=== PATIENT | male | born 1970 | race Caucasian/White ===

== ENCOUNTER 2020-12-08 08:46 | Inpatient (IN) | payer MEDICARE, MEDICAID, SELFPAY ==
--- NOTE | ~2020-12-08 | XR_ITS ---
EXAMINATION: CHEST 1 VIEW CLINICAL INFORMATION: Enteric tube placement. COMPARISON: December 11, 2020. TECHNIQUE: An AP view of the chest is provided. FINDINGS: The cardiac silhouette is not enlarged. An enteric tube is in place. The tip overlies the left upper quadrant, likely within the stomach. The mediastinal and hilar contours are unremarkable. There are neither pleural effusions nor pneumothoraces. There are no consolidations. There is stable atelectasis or scarring at the left lung base. The osseous structures are stable. XR/XR chest 1V IMPRESSION: Enteric tube in place. Stable left lower lobe atelectasis or scarring.
--- NOTE | ~2020-12-08 | CT_ITS ---
EXAMINATION: CT ABDOMEN WITH CONTRAST CLINICAL INFORMATION: Pancreatitis COMPARISON: CT abdomen pelvis December 12, 2020 TECHNIQUE: Contiguous axial thin section helical images of the abdomen were performed following the administration of 85 mL of Omnipaque 350 intravenous contrast. The data set was reformatted in the coronal and sagittal planes and reviewed on an independent workstation. This CT examination was performed using dose optimization techniques as appropriate, variously including the following: *Automated exposure control *Adjustment of mA and/or kV according to patient size (this includes techniques or standardized protocols for targeted exams where dose is matched to indication/reason for exam; i.e. extremities or head) *Use of iterative reconstruction technique DLP: 313 mGy-cm FINDINGS: Visualized lung bases demonstrate subsegmental atelectasis, improved. The liver demonstrates normal size, contour and attenuation. Layering sludge is again noted within the gallbladder. The pancreas demonstrate symmetric enhancement. A small calcification is again noted within the pancreatic head. Diffuse peripancreatic stranding is again noted although it does appear slightly improved from prior imaging. There is no well-defined pancreatic pseudocyst identified. The spleen and adrenal glands are unremarkable. Symmetrically enhancing kidneys without hydronephrosis. A few tiny nonobstructing renal calculi are again noted bilaterally without hydronephrosis. Visualized loops of small and large bowel are normal in caliber. There is a mild stool burden throughout visualized loops:. Mild colonic diverticulosis appreciated without CT evidence to suggest active diverticulitis. Degenerative changes of the spine. CT/CT abdomen w con IMPRESSION: Persistent but mildly improved pancreatitis. There is no gross evidence of pancreatic necrosis. No pancreatic pseudocysts identified.
--- NOTE | ~2020-12-08 | CT_ITS ---
EXAMINATION: CT ABDOMEN AND PELVIS WITH CONTRAST CLINICAL INFORMATION: Epigastric pain. History of pancreatitis. COMPARISON: Several prior examinations. Most recent of 08/29/18. TECHNIQUE: Multidetector volumetric images were obtained from the superior aspect of the liver through the pubic symphysis following administration 85 mL of Omnipaque 350 intravenous contrast. Sagittal and coronal reformatted images were obtained on the technologist's workstation. Oral contrast: No This CT examination was performed using dose optimization techniques as appropriate, variously including the following: *Automated exposure control *Adjustment of mA and/or kV according to patient size (this includes techniques or standardized protocols for targeted exams where dose is matched to indication/reason for exam; i.e. extremities or head) *Use of iterative reconstruction technique DLP: 734 mGy-cm FINDINGS: LUNG BASES: There is mild bibasilar patchy opacity consistent with dependent atelectasis. LIVER, GALLBLADDER, AND BILIARY TREE: The liver is normal in size and contour. Parenchyma is mildly hypoattenuating consistent with steatosis. No focal hepatic lesion or biliary ductal dilatation is demonstrated. The gallbladder is unremarkable with no evidence of radiopaque gallstones, gallbladder wall thickening, or obvious pericholecystic inflammatory changes. PANCREAS: Ill-defined fluid collection is present along the anterior aspect of the pancreas extending into the small bowel mesentery. The pancreas shows normal enhancement with no necrosis. A few small scattered calcifications are present within the head of the pancreas. There is no dilatation of the pancreatic duct. There is a mildly enlarged lymph node adjacent to the head of the pancreas measuring 1.1 cm consistent with reactive lymph node. SPLEEN: Unremarkable. ADRENAL GLANDS: Unremarkable. KIDNEYS AND URETERS: Small cyst in the upper pole of the right kidney measures 0.5 cm. There are 2 small nonobstructing calculi in the lower pole of the left kidney measuring 0.3 cm. There is no hydronephrosis. BLADDER: Unremarkable. GASTROINTESTINAL TRACT: The stomach and duodenum are unremarkable. No abnormal small bowel loops are demonstrated. The colon is unremarkable. The appendix is normal. ABDOMINAL WALL: No significant hernia is appreciated. LYMPH NODES: Normal. VASCULAR: Unremarkable. PELVIC VISCERA: Unremarkable. OSSEOUS STRUCTURES: Mild degenerative changes at L4-5. Incidental disc space calcification in the lower thoracic spine. No suspicious lesion. CT/CT abdomen pelvis w con IMPRESSION: 1. Findings consistent with pancreatitis with acute peripancreatic fluid collection. No walled off collection. No necrosis. Scattered calcifications in the head of the pancreas. Reactive lymph node. 2. Mild hepatic steatosis.
--- NOTE | ~2020-12-08 | CT_ITS ---
EXAMINATION: CT ABDOMEN AND PELVIS WITH CONTRAST CLINICAL INFORMATION: Pancreatitis, ongoing pain. Follow-up. COMPARISON: CT abdomen and pelvis with contrast 12/08/2020 TECHNIQUE: Multidetector volumetric images were obtained from the superior aspect of the liver through the pubic symphysis following administration 85 mL of Omnipaque 350 intravenous contrast. Sagittal and coronal reformatted images were obtained on the technologist's workstation. Oral contrast: No This CT examination was performed using dose optimization techniques as appropriate, variously including the following: *Automated exposure control *Adjustment of mA and/or kV according to patient size (this includes techniques or standardized protocols for targeted exams where dose is matched to indication/reason for exam; i.e. extremities or head) *Use of iterative reconstruction technique DLP: 714 mGy-cm FINDINGS: LUNG BASES: There is increased subsegmental atelectasis at the bilateral posterior bases. No effusion. LIVER, GALLBLADDER, AND BILIARY TREE: Mild steatosis. Liver surface is smooth. No intrahepatic ductal dilatation or parenchymal lesion. There is layering sludge in the gallbladder is 77 HU attenuation. No gallbladder wall thickening or extrahepatic ductal dilatation. No gallbladder dilatation. PANCREAS: Inflammatory changes adjacent to the anterior pancreatic head and neck and proximal body extending into the central small bowel mesentery are increased. There is no interval peripancreatic, intrapancreatic, or mesentery fluid collection. No gas bubbles. The pancreas is normal in size and attenuation. There is no necrosis. No visible pancreatic ductal distention. Small coarse calcification pancreatic head again seen. SPLEEN: Unremarkable. ADRENAL GLANDS: Unremarkable. KIDNEYS AND URETERS: No hydronephrosis, hydroureter, or perinephric stranding. Kidneys enhance symmetrically. There are punctate nonobstructing calculi again noted left mid and lower pole under 3 mm and tiny right upper pole cyst under 1 cm. BLADDER: Unremarkable. GASTROINTESTINAL TRACT: No bowel obstruction. No bowel wall thickening or pneumatosis or free air. Appendix unremarkable. No ascites. ABDOMINAL WALL: Borderline fat-containing umbilical hernia under 2 cm. LYMPH NODES: No interval lymphadenopathy. VASCULAR: Unremarkable. No thrombosis splenic vein, superior mesenteric vein, or portal vein. PELVIC VISCERA: Unremarkable. OSSEOUS STRUCTURES: Unremarkable. CT/CT abdomen pelvis w con IMPRESSION: 1. Increased peripancreatic inflammatory changes central mesentery. Normal pancreatic enhancement. No necrosis or pancreatic ductal distention. 2. Sludge in gallbladder. No wall thickening or biliary ductal dilatation. 3. Increased bibasilar subsegmental atelectasis. 4. No bowel obstruction or ascites.
--- NOTE | ~2020-12-08 | XR_ITS ---
EXAMINATION: XR CHEST CLINICAL INFORMATION: Hypoxia COMPARISON: None TECHNIQUE: Frontal view of the chest was obtained. FINDINGS: Cervical fusion hardware noted. The lungs are well expanded. There is no edema or effusion. Left basilar linear opacity. No pneumothorax. The cardiomediastinal silhouette is within normal limits. No acute osseous abnormality. XR/XR chest 1V IMPRESSION: Left basilar linear opacity favors atelectasis. Pneumonia is possible.
--- NOTE | ~2020-12-08 | IR_ITS ---
EXAMINATION: FLUOROSCOPY LESS THAN ONE HOUR FOR PLACEMENT OF ENTERIC JEJUNAL TUBE CLINICAL INFORMATION: Nonresolving pancreatitis. COMPARISON: Chest performed earlier today at 9:40 AM. TECHNIQUE: Patient was placed supine on fluoroscopy table and the enteric tube bound to the nose was disassembled. Approximately 30-40 mL of nonionic contrast was injected through the NG tube with the tip located in the pylorus. The gastrojejunal opening was identified. A stiff Amplatz wire was advanced and the tip of the catheter was directed to the gastroduodenal junction and advanced under oblique fluoroscopy. The tip of the catheter lies in the distal duodenum at the DJ junction. The caliber of the catheter gets larger as the catheter was advanced. Patient had nasal discomfort with the large bore catheter. The catheter was advanced and left in the GE junction. RECOMMENDATION: Recommend a longer enteric tube for jejunal tube placement with same caliber lumen. IR/IR fluoroscopy <1hr FINDINGS/IMPRESSION: Fluoroscopy-guided advancement of existing nasogastric tube to the GJ junction. Images were obtained for documentation. Fluoroscopy time: 9.6 minutes. Dose area product: [id number]
--- NOTE | ~2020-12-08 | XR_ITS ---
EXAMINATION: ABDOMEN 1 VIEW CLINICAL INFORMATION: Abdominal pain. COMPARISON: 12/08/2020. TECHNIQUE: A supine view of the abdomen is provided. FINDINGS: There are no dilated loops of small bowel. There are no air-fluid levels. There is no appendicolith. The visualized lung bases are clear. The osseous structures are stable. XR/XR KUB IMPRESSION: Unremarkable bowel gas pattern.
--- NOTE | 2020-12-08 08:51 | ECG_ITS ---
Test Reason : CHEST PAIN Blood Pressure : / mmHG Vent. Rate : 081 BPM Atrial Rate : 081 BPM P-R Int : 160 ms QRS Dur : 114 ms QT Int : 386 ms P-R-T Axes : 045 061 000 degrees QTc Int : 448 ms Normal sinus rhythm T wave abnormality, consider inferior ischemia Abnormal ECG When compared with ECG of 01-JUN-2018 23:18, Nonspecific T wave abnormality now evident in Anterior leads Referred By: Sushma Correia Electronically Signed By:German Herring
--- NOTE | 2020-12-08 08:57 | ED.ABDPAIN ---
HPI - Abdominal Pain General Chief Complaint: Abdominal Pain Stated Complaint: ABD PAIN Time Seen by Provider: 12/08/20 08:50 Source: patient and EMS Mode of arrival: EMS Limitations: no limitations History of Present Illness HPI narrative: 50 yo male with DM, HTN, pancreatitis here with 12 hours of pain with nausea, feels the epigastric pain radiates to his back, similar to his prior episodes of pancreatitis states it is idiopathic. MD elicited complaint: abdominal pain Pertinent past history: other (pancreatitis) Onset (ago): hour(s) (12) Pain Consistency: constant Location: epigastric Severity: similar to previous episodes Quality: stabbing Radiation: back Migration to: no migration Exacerbating factors: movement Relieving factors: nothing Context: history of similar episodes Associated symptoms: nausea and diarrhea Related Data Home Medications Medication Instructions Recorded Confirmed fenofibrate 2 tab PO DAILY 12/08/20 12/08/20 fluoxetine 1 cap PO DAILY 12/08/20 12/08/20 galcanezumab-gnlm [Emgality Pen] 1 mg SUBCUT Q4W 12/08/20 nortriptyline cap PO 12/08/20 omeprazole 1 cap PO DAILY 12/08/20 12/08/20 ondansetron 1 tab PO Q8H PRN 12/08/20 12/08/20 oxycodone 1 tab PO QID PRN 12/08/20 pioglitazone 1 tab PO BID 12/08/20 12/08/20 rosuvastatin 1 tab PO DAILY 12/08/20 12/08/20 sumatriptan succinate tab PO 12/08/20 tizanidine 1 tab PO TID 12/08/20 12/08/20 zolpidem 1 tab PO BEDTIME PRN 12/08/20 Allergies Allergy/AdvReac Type Severity Reaction Status Date / Time gabapentin [GABAPENTIN] Allergy Mild RASH Unverified 05/09/20 16:22 famotidine [From Pepcid] Allergy Unknown RASH Unverified 05/09/20 16:22 pregabalin [From LYRICA] Allergy Unknown VOMITING Unverified 05/09/20 16:22 ibuprofen [From Advil] AdvReac Unknown STOMACH Unverified 05/09/20 16:22 UPSET Review of Systems Review of Systems Constitutional : No Weight loss, No Fever, No Chills ENT/Mouth : No sore throat, No Rhinorrhea Eyes: No Swelling, No Redness Cardiovascular : No Chest Pain, No SOB, NoEdema Respiratory : No Cough, No Sputum, No Wheezing Gastrointestinal : Positive Nausea, no Vomiting, positive Diarrhea, positive abdominal Pain, No Hematochezia, No Melena Genitourinary : No Dysuria, No Urinary Frequency, No Hematuria, No Urgency Musculoskeletal : No joint pain, No Myalgias, No Joint Swelling Skin : No Skin Lesions, No rash Neuro : No Weakness, No Numbness, No Dizziness, No Headache Psych : No Anxiety/Panic, No Depression Heme/Lymph: No Bruising, No Lymphadenopathy Endocrine : No Polyuria, No Polydipsia All other systems reviewed and are negative. Physical Exam Vital Signs: Vital Signs: Last Vital Signs Temp 97.9 F 12/08/20 08:58 Pulse 90 12/08/20 11:27 Resp 17 12/08/20 11:27 BP 150/78 H 12/08/20 11:27 Pulse Ox 96 12/08/20 11:27 Body Mass Index 30.9 Appearance: Alert. Oriented X3. Anxious in pain, mild acute distress Eyes: Pupils equal, round and reactive to light. ENT: Pharynx normal. Neck: Normal inspection. Neck supple. CVS: Normal heart rate and rhythm. Pulses normal. Respiratory: No respiratory distress. Breath sounds normal. Abdomen: Soft and moderate epigastric ttp with no rebound pos voluntary guarding Skin: Skin warm and dry. pale skin color. Normal skin turgor. Extremities: No lower extremity edema. No calf ttp Neuro: Oriented X 3. No motor deficit. No sensory deficit. Course Course Course Narrative: repeat IV pain medications , given LR [place]'s score 0 MDM - Abdominal Pain MDM Narrative Medical decision making narrative: 50 yo male with idiopathic pancreatitis, HTN, DM, comes in with 12 hours of epigastric pain nausea and diarrhea states this is similar to his prior episodes of pancreatitis - at this time labs, IV morphine for pain, CT scan for pancreatitis dispo per results and findings. Differential Diagnosis Differential diagnosis: Likely abdominal pain, gastritis and pancreatitis; Unlikely acute appendicitis Lab Data Result diagrams: 12/08/20 09:29 12/08/20 09:29 Labs: Lab Results 12/08/20 12/08/20 12/08/20 Range/Units 09:29 09:29 09:29 WBC 9.6 (4.8-10.8) X10*3/uL RBC 5.13 (4.60-5.80) X10*6/uL Hgb 14.1 (14.0-18.0) g/dl Hct 44.6 (42-52) % MCV 86.9 (80-98) fL MCH 27.5 (27.0-33.0) pg MCHC 31.6 (31.0-36.0) g/dl RDW 13.8 (11.0-16.0) % Plt Count 177 (160-400) X10*3/uL MPV 12.7 H (9.4-12.4) fL Immature Gran % (Auto) 0.6 H (0.0-0.4) % Neut % (Auto) 73.6 H (45-73) % Lymph % (Auto) 17.6 L (20-40) % [place] % (Auto) 6.9 (2-11) % Eos % (Auto) 0.9 (0-4) % Baso % (Auto) 0.4 (0-2) % Lymph # (Auto) 1.7 (1.2-4.9) X10*3/uL [place] # (Auto) 0.7 (0.1-1.2) X10*3/uL Eos # (Auto) 0.1 (0.0-0.4) X10*3/uL Baso # (Auto) 0.0 (0.0-0.2) X10*3/uL Abs Immat Gran (auto) 0.06 H (0.00-0.03) X10*3/uL Absolute Neuts (auto) 7.0 (2.0-8.3) X10*3/uL Absolute Nucleated RBC 0.000 (0.0-0.012) X10*3/uL Nucleated RBC % (auto) 0.0 (0.0-0.2) /100WBC PT 12.9 (10.8-13.0) SEC INR 1.1 (0.9-1.1) APTT 29.9 (24.1-38.0) SEC Sodium 140 (135-145) mmol/L Potassium 3.7 (3.3-5.1) mmol/L Chloride 100 (96-108) mmol/L Carbon Dioxide 22 (22-29) mmol/L Anion Gap 22 H (12-20) BUN 17 H (9-16) mg/dL Creatinine 1.25 (0.5-1.4) mg/dL Estim Creat Clear Calc 69.6 Estimated GFR > 60 Random Glucose 115 (60-115) mg/dL Calcium 10.2 (8.4-10.2) mg/dL Magnesium (1.6-2.6) mg/dL Total Bilirubin (0.0-1.0) mg/dL Direct Bilirubin (0.0-0.5) mg/dL AST (5-37) U/L ALT (0-40) U/L Alkaline Phosphatase (39-117) U/L Lactate Dehydrogenase (118-273) U/L Troponin I High Sens (<3.5-35.0) ng/L Total Protein (6.5-8.0) g/dL Albumin (3.5-5.0) g/dL Lipase (8-78) U/L Ethyl Alcohol mg/dL COVID-19 ([facility]I) (Negative) COVID-19 Clin Com 12/08/20 12/08/20 12/08/20 Range/Units 09:29 09:30 09:30 WBC (4.8-10.8) X10*3/uL RBC (4.60-5.80) X10*6/uL Hgb (14.0-18.0) g/dl Hct (42-52) % MCV (80-98) fL MCH (27.0-33.0) pg MCHC (31.0-36.0) g/dl RDW (11.0-16.0) % Plt Count (160-400) X10*3/uL MPV (9.4-12.4) fL Immature Gran % (Auto) (0.0-0.4) % Neut % (Auto) (45-73) % Lymph % (Auto) (20-40) % [place] % (Auto) (2-11) % Eos % (Auto) (0-4) % Baso % (Auto) (0-2) % Lymph # (Auto) (1.2-4.9) X10*3/uL [place] # (Auto) (0.1-1.2) X10*3/uL Eos # (Auto) (0.0-0.4) X10*3/uL Baso # (Auto) (0.0-0.2) X10*3/uL Abs Immat Gran (auto) (0.00-0.03) X10*3/uL Absolute Neuts (auto) (2.0-8.3) X10*3/uL Absolute Nucleated RBC (0.0-0.012) X10*3/uL Nucleated RBC % (auto) (0.0-0.2) /100WBC PT (10.8-13.0) SEC INR (0.9-1.1) APTT (24.1-38.0) SEC Sodium (135-145) mmol/L Potassium (3.3-5.1) mmol/L Chloride (96-108) mmol/L Carbon Dioxide (22-29) mmol/L Anion Gap (12-20) BUN (9-16) mg/dL Creatinine (0.5-1.4) mg/dL Estim Creat Clear Calc Estimated GFR Random Glucose (60-115) mg/dL Calcium (8.4-10.2) mg/dL Magnesium 1.4 L* (1.6-2.6) mg/dL Total Bilirubin 0.6 (0.0-1.0) mg/dL Direct Bilirubin 0.3 (0.0-0.5) mg/dL AST 51 H (5-37) U/L ALT 30 (0-40) U/L Alkaline Phosphatase 48 (39-117) U/L Lactate Dehydrogenase 198 (118-273) U/L Troponin I High Sens < 3.5 (<3.5-35.0) ng/L Total Protein 8.5 H (6.5-8.0) g/dL Albumin 4.8 (3.5-5.0) g/dL Lipase 1226 H (8-78) U/L Ethyl Alcohol < 10 mg/dL COVID-19 ([facility]ALI) (Negative) COVID-19 Clin Com 12/08/20 Range/Units 09:51 WBC (4.8-10.8) X10*3/uL RBC (4.60-5.80) X10*6/uL Hgb (14.0-18.0) g/dl Hct (42-52) % MCV (80-98) fL MCH (27.0-33.0) pg MCHC (31.0-36.0) g/dl RDW (11.0-16.0) % Plt Count (160-400) X10*3/uL MPV (9.4-12.4) fL Immature Gran % (Auto) (0.0-0.4) % Neut % (Auto) (45-73) % Lymph % (Auto) (20-40) % [place] % (Auto) (2-11) % Eos % (Auto) (0-4) % Baso % (Auto) (0-2) % Lymph # (Auto) (1.2-4.9) X10*3/uL [place] # (Auto) (0.1-1.2) X10*3/uL Eos # (Auto) (0.0-0.4) X10*3/uL Baso # (Auto) (0.0-0.2) X10*3/uL Abs Immat Gran (auto) (0.00-0.03) X10*3/uL Absolute Neuts (auto) (2.0-8.3) X10*3/uL Absolute Nucleated RBC (0.0-0.012) X10*3/uL Nucleated RBC % (auto) (0.0-0.2) /100WBC PT (10.8-13.0) SEC INR (0.9-1.1) APTT (24.1-38.0) SEC Sodium (135-145) mmol/L Potassium (3.3-5.1) mmol/L Chloride (96-108) mmol/L Carbon Dioxide (22-29) mmol/L Anion Gap (12-20) BUN (9-16) mg/dL Creatinine (0.5-1.4) mg/dL Estim Creat Clear Calc Estimated GFR Random Glucose (60-115) mg/dL Calcium (8.4-10.2) mg/dL Magnesium (1.6-2.6) mg/dL Total Bilirubin (0.0-1.0) mg/dL Direct Bilirubin (0.0-0.5) mg/dL AST (5-37) U/L ALT (0-40) U/L Alkaline Phosphatase (39-117) U/L Lactate Dehydrogenase (118-273) U/L Troponin I High Sens (<3.5-35.0) ng/L Total Protein (6.5-8.0) g/dL Albumin (3.5-5.0) g/dL Lipase (8-78) U/L Ethyl Alcohol mg/dL COVID-19 (MALI) Negative (Negative) COVID-19 Clin Com See Note ECG Data Attestation: I personally reviewed and interpreted this ECG as follows: ECG interpretation date: 12/08/20 ECG interpretation time: 09:46 Interpretation: Rate: 81 Rhythm: NSR [place]: normal Normal P waves. Normal DUC. Normal QRS complex. ST T wave : nonspecific, no KAEL qTC: normal prior studies: no acute ischemia The study has been interpreted contemporaneously by me. . Critical Care Time Critical Care Time Critical Care Time: Yes Total Critical Care Time: 30 Attestation: 2L of IVF, repeat IV pain medications I attest to this time spent taking care of the patient Discharge Plan Discharge Clinical Impression: Hypomagnesemia Abdominal pain Qualifiers: Abdominal location: epigastric Qualified Code(s): R10.13 - Epigastric pain Pancreatitis Qualifiers: Chronicity: acute Pancreatitis type: unspecified pancreatitis type Acute pancreatitis complication: unspecified Qualified Code(s): K85.90 - Acute pancreatitis without necrosis or infection, unspecified Vomiting Qualifiers: Vomiting type: unspecified Vomiting Intractability: non-intractable Nausea presence: with nausea Qualified Code(s): R11.2 - Nausea with vomiting, unspecified Patient Disposition: Admitted As Inpatient [facility] Past Medical History Attestation statement: The following information was validated with the patient. Medical History (Updated 12/08/20 @ 12:27 by Sushma Correia DO) Depression Diabetes HTN (hypertension) Kidney stone Migraine Pancreatitis Surgical History H/O neck surgery Social History Social History (Updated 12/08/20 @ 08:59 by Sushma Correia DO) Alcohol intake: never Smoking Status: Never smoker Use of substances other than those prescribed or required for medical reasons: No Advance Directives: No Advance Directives Information Provided: No
[2020-12-08 08:58] VITALS: BP 143/86; BP 150/80; PULSE 81; PULSE 90; RESP 20; TEMP 36.6; O2SAT 97; BMI 30.9
[2020-12-08] MEDS: Morphine Sulfate 4 MG/ML CARTRIDGE IVPUSH (09:39)
[2020-12-08] MEDS: 0.9 % Sodium Chloride 1,000 ML 999 ML IVCONT (09:39)
[2020-12-08] MEDS: diphenhydrAMINE HCL 50 MG/ML VIAL 25 MG IVPUSH (09:39)
[2020-12-08] MEDS: Metoclopramide HCl 10 MG/2 ML VIAL 5 MG IVPUSH (09:40)
[2020-12-08 09:47] LABS: MANUAL DIFF FLAG NO
[2020-12-08 09:48] LABS: Basophils Percent Auto 0.4 % (0-2); Eosinophils Absolute Auto 0.1 X10*3/uL (0.0-0.4); Eosinophils Percent Auto 0.9 % (0-4); Hematocrit 44.6 % (42-52); Hemoglobin 14.1 g/dl (14.0-18.0); Imm Gran Abs Auto 0.06 X10*3/uL (0.00-0.03); Imm Gran Pct Auto 0.6 % (0.0-0.4); Lymphocytes Absolute Auto 1.7 X10*3/uL (1.2-4.9); Lymphocytes Percent Auto 17.6 % (20-40); Mean Corpuscular HGB Conc 31.6 g/dl (31.0-36.0); Mean Corpuscular Hemoglobin 27.5 pg (27.0-33.0); Mean Corpuscular Volume 86.9 fL (80-98); Mean Platelet Volume 12.7 fL (9.4-12.4); Monocytes Absolute Auto 0.7 X10*3/uL (0.1-1.2); Monocytes Percent Auto 6.9 % (2-11); Neutrophils Percent Auto 73.6 % (45-73); Platelet Count 177 X10*3/uL (160-400); Red Blood Count 5.13 X10*6/uL (4.60-5.80); Red Cell Distribution Width 13.8 % (11.0-16.0); White Blood Count 9.6 X10*3/uL (4.8-10.8)
[2020-12-08 09:55] LABS: INTERNATIONAL NORM RATIO 1.1 (0.9-1.1); Prothrombin Time 12.9 SEC (10.8-13.0)
[2020-12-08 09:58] LABS: Partial Thromboplastin Time 29.9 SEC (24.1-38.0)
[2020-12-08 10:14] LABS: COVID-19 Test Negative (Negative)
[2020-12-08 10:25] LABS: Ethanol < 10 mg/dL
[2020-12-08 10:32] LABS: Troponin-I High Sensitivity < 3.5 ng/L (<3.5-35.0)
[2020-12-08 10:34] LABS: Alanine Aminotransferase 30 U/L (0-40); Albumin Level 4.8 g/dL (3.5-5.0); Alkaline Phosphatase 48 U/L (39-117); Aspartate Amino Transferase 51 U/L (5-37); Bilirubin Direct 0.3 mg/dL (0.0-0.5); Bilirubin Total 0.6 mg/dL (0.0-1.0); Lactate Dehydrogenase 198 U/L (118-273); Magnesium 1.4 mg/dL (1.6-2.6); Total Protein 8.5 g/dL (6.5-8.0)
[2020-12-08 10:35] LABS: Anion Gap 22 (12-20); Blood Urea Nitrogen 17 mg/dL (9-16); Calcium 10.2 mg/dL (8.4-10.2); Carbon Dioxide 22 mmol/L (22-29); Chloride 100 mmol/L (96-108); Creatinine Clr Calc Pharmacy 69.6; Estimated Glomerular Filt Rate > 60; Glucose Random 115 mg/dL (60-115); Potassium 3.7 mmol/L (3.3-5.1); Sodium 140 mmol/L (135-145)
[2020-12-08] MEDS: HYDROmorphone HCl 1 MG/ML SYRINGE IVPUSH ×2 (10:37→12:04)
[2020-12-08 10:48] VITALS: BP 148/70; PULSE 100; O2SAT 95
[2020-12-08] MEDS: Magnesium Sulfate/H2O 2 GM/50 ML PIGGYBACK IV (10:49)
[2020-12-08] MEDS: ondansetron HCL 4 MG/2 ML VIAL IVPUSH ×2 (10:49→18:23)
[2020-12-08 10:51] LABS: Lipase 1226 U/L (8-78)
[2020-12-08 11:27] VITALS: BP 150/78; PULSE 90; RESP 17; O2SAT 96
[2020-12-08] MEDS: iohexoL 350 MG/ML 100 ML INFUS..BTL IV (11:33)
[2020-12-08] MEDS: Lactated Ringers 1,000 ML 999 ML IV (12:04)
--- NOTE | 2020-12-08 14:16 | PM.EVENT ---
Event Note Date of Service: 12/08/20 Event Note: Addendum to history and physical by mid-level provider Surekha Sutherland I interviewed and examined the patient. I discussed their presentation and management with the mid-level provider. I reviewed the history and physical and agree with the documentation, with the following additions and corrections: 50yo M with DM2, HTN, migraines, idiopathic pancreatitis [3 prior flares] presenting with acute onset over 12 hr ago of nausea and epigastric pain radiating to back typical of prior flares of pancreatitis but more severe. Denies EtOH abuse. States he has a history of hypertriclyeridemia with TGs as high as 1000+. On exam afebrile, mildly hypertensive. In pain. Epigastric tenderness. AST 51, ALT 30, LDH 198, lipase 1226. Mg 1.4. CT A/P: Findings consistent with pancreatitis with acute peripancreatic fluid collection. No walled off collection. No necrosis. Scattered calcifications in the head of the pancreas. Reactive lymph node. Suspect pancreatitits related to hypertriglyceridemia. Plan admit to M/S, NPO, prn morphine, GI consult, to consider ERCP, obtain records of prior workup at [facility] in [place]. Pt takes fenofibrate and rosuvastatin
[2020-12-08] MEDS: Lactated Ringers 1,000 ML 200 ML IVCONT ×2 (15:34→20:51)
[2020-12-08] MEDS: Morphine Sulfate 2 MG/ML CARTRIDGE IVPUSH (15:34)
[2020-12-08 16:03] VITALS: BP 148/82; PULSE 95; RESP 18; TEMP 36.2; O2SAT 95
[2020-12-08 16:36] LABS: Glucose, Whole Blood 122 mg/dL (60-115)
[2020-12-08] MEDS: HYDROmorphone HCl 0.5 MG/0.5 ML SYRINGE IVPUSH ×3 (16:50→22:49)
--- NOTE | 2020-12-08 17:24 | HP_ITS ---
DATE OF SERVICE: 12/08/2020 CHIEF COMPLAINT: Abdominal pain. HISTORY OF PRESENT ILLNESS: A 50-year-old man presented to the ER with complaints of worsening abdominal pain that started this morning. He reports it as more left-sided and epigastric abdominal pain radiating to his back. He reported some nausea with no vomiting or diarrhea. Denies fever, chills, recent travel, or improperly cooked foods. He does have a history of pancreatitis in the past, at least 3 episodes. He has no history of alcohol abuse. He is followed currently by Gastroenterology in [place] and has been referred to [place] as well for consideration of etiology of pancreatitis. He did report that he has hypertriglyceridemia; however, triglycerides noted were as high as [address] today showed findings consistent with pancreatitis, acute pancreatic fluid collection with no walled-off collection or necrosis with mild hepatic steatosis. Lipase was noted to be significantly elevated at 1226, magnesium 1.4, COVID-19, negative. In the ER, he was given IV fluids, Benadryl, morphine, Reglan, Dilaudid, IV magnesium, Zofran. At this time his vital signs are stable. Blood pressure is mildly elevated. We will admit the patient for acute on chronic pancreatitis. PAST MEDICAL HISTORY: 1. Pancreatitis. 2. Diabetes mellitus. 3. GERD. 4. Hyperlipidemia. 5. Depression. 6. Chronic back pain. PAST SURGICAL HISTORY: 1. Lithotripsy. 2. Surgery to the arm. 3. Surgery to the neck. FAMILY HISTORY: Sister had gallstones. SOCIAL HISTORY: Denies any alcohol, tobacco, or illicit drug use. ALLERGIES: ALLERGIES TO GABAPENTIN, FAMOTIDINE, PREGABALIN, IBUPROFEN. MEDICATIONS: 1. Ambien 10 mg at bedtime. 2. Tizanidine hydrochloride 4 mg. 3. Sumatriptan 100 mg tablet. 4. Rosuvastatin calcium 40 mg daily. 5. Actos 15 mg twice daily. 6. . 7. Zofran 4 mg tab. 8. Omeprazole 40 mg. 9. Nortriptyline 25 mg. 10. Fluoxetine 20 mg tab. 11. Fenofibrate 54 mg 2 tabs every day. 12. Emgality 120 mg 1 injection every 28 days. 13. Fioricet. REVIEW OF SYSTEMS: CONSTITUTIONAL: Denies any recent fever or chills. Reports a decrease in appetite. RESPIRATORY: Denies any shortness of breath, cough, or sputum production. CARDIOVASCULAR: Denies any chest pain, orthopnea, PND, or edema. GASTROINTESTINAL: See HPI. GENITOURINARY: Denies any dysuria, frequency, or hematuria. MUSCULOSKELETAL: Denies any joint pain or swelling. NEUROPSYCH: Denies any weakness or seizures. All other systems are reviewed and are negative. PHYSICAL EXAMINATION: CONSTITUTIONAL: Resting at rest, appearing in no acute distress. VITAL SIGNS: 97.9, 90, 17, 150/78, 96% on room air. SKIN: Intact without rash or open sores. HEENT: Head is normocephalic and atraumatic. Eyes, pupils are PERRLA. Sclerae anicteric. Mouth and Throat: Mucous membranes are intact and moist. NECK: Supple. No lymphadenopathy. No JVD noted. CHEST: Clear to auscultation without wheezes, rhonchi, or rales. HEART: Regular rate and rhythm. Clear S1, S2. No murmurs, rubs, gallops. ABDOMEN: Positive bowel sounds. Soft, nontender. No hepatomegaly or splenomegaly noted. NEURO: The patient is alert and oriented x3. Cranial nerves II through XII are grossly intact without focal deficits. LABORATORY DATA: WBC 9.6, hemoglobin 14.1, hematocrit 44.6, platelets 177. Sodium is 140, potassium 3.7, chloride is 100, bicarb is 22, BUN is 17, creatinine is 1.25, magnesium is 1.4. Lipase is 1226. ASSESSMENT AND PLAN: A 50-year-old man who is being admitted with idiopathic pancreatitis. The patient has had several other episodes in the past and has even been referred to [place]. At this time, the etiology of his pancreatitis is unclear; however, he has had complete workups in the past. He denies any alcohol use. Triglycerides are in the 300s. There is a possibility of autoimmune pancreatitis. We will have Gastroenterology to follow. 1. Acute pancreatitis. Aggressive IV fluid hydration with lactated Ringer's, PPI, pain medication, antiemetics, GI consultation, n.p.o. for now. 2. Hypomagnesemia. Replete in the ER. We will recheck again tomorrow. 3. Diabetes mellitus. Sliding scale, ADA diet. 4. Hyperlipidemia. Hold statin for now. 5. Deep vein thrombosis prophylaxis with Lovenox. 6. Case discussed with Dr. Flores. MARIANNE Pride MD JR/OMA / [id number]
--- NOTE | 2020-12-08 17:47 | P.CNGI_ITS ---
History of Present Illness Data of Consult Service Date: 12/09/20 Requesting physician: Yovany Jenkins Primary Care Provider: Nonstaff Physician HPI Reason for consult: Recurrent acute pancreatitis 50 YM with DM, hyperlipidemia, GERD, depression, HAs, chronic back pain seen at [facility] on 12/07/20 with abdominal pain: 50 yo male with DM, HTN, pancreatitis here with 12 hours of pain with nausea, feels the epigastric pain radiates to his back, similar to his prior episodes of pancreatitis states it is idiopathic. MD elicited complaint: abdominal pain Pertinent past history: other (pancreatitis) Onset (ago): hour(s) (12) Pain Consistency: constant Location: epigastric Severity: similar to previous episodes Quality: stabbing Radiation: back Migration to: no migration Exacerbating factors: movement Relieving factors: nothing Context: history of similar episodes Associated symptoms: nausea and diarrhea Lab evaluation revealed normal CBC, BUN 17, creatinine 1.25, lipase 1226. LFTs were normal except AST of 51. Patient was started on IV fluids and pain medications and admitted for further management. History was obtained from the patient and his girlfriend who was at the bedside. Pt complains of nausea for the past week. He noted 10/10 upper abdominal pain which became generalized and radiated to the back. He continues to have 10 x 10 abdominal pain today and only took some water with his medications. He denies fever, vomiting and noted chills and cold sweats. He denies any change in bowel habits - he had a normal bowel movement day before yesterday and none yesterday and today. Pt admits to history of weight gain of 25 lb over the past several months. He admits to intermittent episodes of abdominal pain approximately once a month and he manages his symptoms at home by going on a clear liquid diet. He tried taking Creon several years ago which caused indigestion - patient was advised to try a lower dose. Patient denies history of alcohol abuse or smoking. 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 He has no children and lives with his girlfriend. He reports being started on a new monthly injection for migraine headaches. He is followed currently by Dr Sharad Horn, [facility] in [place]. Pt was referred to [facility] in [place] (seen by Dr Jailyn Fishman) for consideration of etiology of pancreatitis - per patient no cause was found. He reports having an EUS at [facility] 5 yrs ago which was normal per pt - records have been requested. He did report that he has hypertriglyceridemia; however, triglycerides noted were as high as 362 in 2018. Pt reports initial triglyceride levels were greater than a 1000. Denies recent change in bowel habits, constipation, diarrhea, black stools or rectal bleeding. Patient denies major cardiac or pulmonary problems. Denies being on chronic anticoagulation. Patient denies known family history of pancreatic disease, colon polyps, colon cancer or other GI malignancies. His sister had her gallbladder removed for gallstones. PAST EGD/COLONOSCOPY: Patient reports having an upper endoscopy and colonoscopy 2 years ago in [place] and no polyps were detected. IMAGING STUDIES: ABDOMINAL CT SCAN SHOWED: LIVER, GALLBLADDER, AND BILIARY TREE: The liver is normal in size and contour. Parenchyma is mildly hypoattenuating consistent with steatosis. No focal hepatic lesion or biliary ductal dilatation is demonstrated. The gallbladder is unremarkable with no evidence of radiopaque gallstones, gallbladder wall thickening, or obvious pericholecystic inflammatory changes. PANCREAS: Ill-defined fluid collection is present along the anterior aspect of the pancreas extending into the small bowel mesentery. The pancreas shows normal enhancement with no necrosis. A few small scattered calcifications are present within the head of the pancreas. There is no dilatation of the pancreatic duct. There is a mildly enlarged lymph node adjacent to the head of the pancreas measuring 1.1 cm consistent with reactive lymph node. KIDNEYS AND URETERS: Small cyst in the upper pole of the right kidney measures 0.5 cm. There are 2 small nonobstructing calculi in the lower pole of the left kidney measuring 0.3 cm. There is no hydronephrosis. GASTROINTESTINAL TRACT: The stomach and duodenum are unremarkable. No abnormal small bowel loops are demonstrated. The colon is unremarkable. The appendix is normal. OSSEOUS STRUCTURES: Mild degenerative changes at L4-5. Incidental disc space calcification in the lower thoracic spine. No suspicious lesion. PAST GI HISTORY BY REVIEW OF MEDICAL RECORDS: Pt has been hospitalized at [facility] in Jun 2009, May 2018 and Aug 2018 with pancreatitis attributed to hypertriglyceridemia in the past Past Triglyceride level ranged between 304 to 397 Past lab evalaution revealed normal NICKI, smooth muscle antibody, LK M antibody, AMA and IgG 4 levels. Last seen by Dr Shea in Aug 2018 and further evaluation with an endoscopic ultrasound was recommended. Review of Systems Constitutional: Constitutional: Reports chills, Reports fever(s), Reports headache(s), Reports weight gain and Denies weight loss Eyes: Eyes: Denies eye discharge and Denies irritation ENT: Reports Normal hearing present, Denies dysphagia, Denies dizziness and Reports headache(s) Cardiovascular: Cardiovascular: Denies chest pain, Denies leg edema and Denies dyspnea on exertion Respiratory: Respiratory: Denies cough, Denies dyspnea on exertion and Denies wheezing Gastrointestinal: Gastrointestinal: Reports abdominal pain, Reports bloating, Denies change in bowel habits, Denies dysphagia, Denies heartburn and Reports nausea Genitourinary: Genitourinary: Denies dysuria Musculoskeletal: Musculoskeletal: Denies back pain and Denies arthralgias Integumentary/Breasts: Skin/Breast: Denies pruritus, Denies rash and Denies jaundice Neurologic: Reports Normal hearing present, Denies Abnormal speech present, Denies dizziness, Reports headache(s) and Denies seizure-like activity Psychiatric: Psychiatric: Denies anxiety, Denies depression and Denies panic attacks Endocrine: Endocrine: Denies cold intolerance, Denies flushing and Denies heat intolerance Hematologic/Lymphatic: Hematologic/Lymphatic: Denies easy bleeding and Denies easy bruising Allergic/Immunologic: Allergic/Immunologic: Denies wheezing PMFSH Past Medical History Medical History Depression Diabetes HTN (hypertension) Kidney stone Migraine Pancreatitis Surgical History Surgical History H/O neck surgery Social History Social History Household Members: Spouse Housing: Apartment Do you presently have visiting nurse or other home services: No Alcohol intake: never Smoking Status: Never smoker Use of substances other than those prescribed or required for medical reasons: No Currently Displaying Signs/Symptoms of Drug Intoxication Withdrawal: No Do you feel safe in your current relationship?: Yes Is there a partner from a previous relationship who is making you feel unsafe now?: No Are you made to feel afraid or neglected: No Advance Directives: No Advance Directives Information Provided: No Do you have thoughts of harming others: None Do you have a plan to hurt others: No Plan Recently lost weight without trying: No service: No Current occupational status: disabled Meds Allergies Allergy/AdvReac Type Severity Reaction Status Date / Time gabapentin [GABAPENTIN] Allergy Mild RASH Verified 12/08/20 17:03 famotidine [From Pepcid] Allergy Unknown RASH Verified 12/08/20 17:03 pregabalin [From LYRICA] Allergy Unknown VOMITING Verified 12/08/20 17:03 pantoprazole [From Protonix] Allergy Rash Verified 12/08/20 17:03 ibuprofen [From Advil] AdvReac Unknown STOMACH Verified 12/08/20 17:03 UPSET Active Medications: Current Medications Generic Name Dose Route Start Last Admin Trade Name Freq PRN Reason Stop Dose Admin Acetaminophen 650 mg 12/08/20 13:38 Acetaminophen 325 Mg Tablet PO Q6H PRN Pain, Mild (Pain Scale 1-3) Fenofibrate 108 mg 12/09/20 09:00 Fenofibrate 54 Mg Tablet PO DAILY [facility] Fluoxetine HCl 20 mg 12/09/20 09:00 Fluoxetine Hcl 20 Mg Capsule PO DAILY MACKENZIE Hydromorphone HCl 0.5 mg 12/08/20 16:21 12/08/20 16:50 Hydromorphone Hcl 0.5 Mg/0.5 Ml Syringe IVPUSH 0.5 mg Q4H PRN Administration Pain, Moderate (Pain Scale 4-6 Lactated Ringer's 1,000 mls @ 200 mls/hr 12/08/20 13:45 12/08/20 15:34 Lr IVCONT 200 mls/hr .Q5H MACKENZIE Administration Insulin Human Lispro 0 unit 12/08/20 16:30 12/08/20 16:47 Insulin Lispro 100 Unit/Ml 3 Ml Vial SUBCUT Not Given QIDACHS [facility] Protocol Ondansetron HCl 4 mg 12/08/20 13:38 Ondansetron Hcl 4 Mg/2 Ml Vial IVPUSH Q8H PRN Nausea and Vomiting Pantoprazole Sodium 40 mg 12/08/20 13:40 12/08/20 14:48 Pantoprazole Sodium 40 Mg/10 Ml Vial IVPUSH Not Given DAILY@0630 [facility] Pharmacy Consult 1 each 12/08/20 10:53 Consult Rx Perform Med Rec MISCELLANE ONCE PRN Consult order Pioglitazone HCl 15 mg 12/08/20 21:00 Pioglitazone Hcl 15 Mg Tablet PO BID [facility] Sodium Chloride 3 ml 12/08/20 16:00 12/08/20 16:47 0.9 % Sodium Chloride Flush 3 Ml Syringe IVFLUSH Not Given QSHIFT [facility] Tizanidine HCl 4 mg 12/08/20 21:00 Tizanidine Hcl 4 Mg Tablet PO TID [facility] Home Medications Medication Instructions Recorded Confirmed Last Taken Type fenofibrate 2 tab PO DAILY 12/08/20 12/08/20 Unknown History fluoxetine 1 cap PO DAILY 12/08/20 12/08/20 Unknown History galcanezumab-gnlm [Emgality Pen] 1 mg SUBCUT Q4W 12/08/20 12/08/20 11/29/20 History nortriptyline 25 cap PO BEDTIME 12/08/20 12/08/20 Unknown History omeprazole 1 cap PO DAILY 12/08/20 12/08/20 Unknown History ondansetron 1 tab PO Q8H PRN 12/08/20 12/08/20 Unknown History oxycodone 1 tab PO QID PRN 12/08/20 12/08/20 Unknown History pioglitazone 1 tab PO BID 12/08/20 12/08/20 Unknown History rosuvastatin 1 tab PO DAILY 12/08/20 12/08/20 Unknown History sumatriptan succinate 100 mg PO DAILY PRN 12/08/20 12/09/20 Unknown History tizanidine 1 tab PO TID 12/08/20 12/08/20 Unknown History zolpidem 10 tab PO BEDTIME PRN 12/08/20 12/08/20 Unknown History Physical Exam Vital Signs: Vital Signs: Last Vital Signs Temp 97.1 F 12/08/20 16:03 Pulse 95 12/08/20 16:03 Resp 18 12/08/20 16:03 BP 148/82 H 12/08/20 16:03 Pulse Ox 95 12/08/20 16:03 Body Mass Index 30.9 Const: General: healthy appearing and ill appearing Nutritional Appearance: obese Orientation/consciousness: patient oriented x3 Limitations: no limitations HENMT: Head: Yes normal to inspection Ears: hearing grossly normal bilaterally Mouth: Normal oral and palatal mucosa present Eyes: Sclerae: sclerae normal Pupils: Equal, round and reactive pupils present Neck: Neck: Yes normal visual inspection Chest: Chest palpation & inspection: normal inspection of the chest Resp: Effort & Inspection: normal respiratory effort Auscultation: clear to auscultation bilaterally Cardio: Palpation: normal PMI Rate: regular rate Rhythm: regular rhythm Heart sounds: S1 normal heart sound present, S2 normal heart sound present and no murmurs GI: Palpation (GI): Soft to palpation, Tenderness to palpation present (GI) (Mild generalized tenderness) and No hepatosplenomegaly present Auscultation: normal bowel sounds Rectal Exam - Male: Yes deferred Skin: General skin exam: no rashes or lesions noted Neuro: General: patient oriented x3, gait normal and moves all extremities Cranial nerves: Yes Equal, round and reactive pupils present and Yes Normal hearing present Speech: No Abnormal speech present Psych: Appearance: grossly normal Mental Status: mental status grossly normal Results Labs CBC & Chem 7: 12/14/20 07:46 12/15/20 05:36 Labs: Short CBC 12/08/20 Range/Units 09:29 WBC 9.6 (4.8-10.8) X10*3/uL Hgb 14.1 (14.0-18.0) g/dl Hct 44.6 (42-52) % Plt Count 177 (160-400) X10*3/uL BMP 12/08/20 09:29 Sodium 140 Potassium 3.7 Chloride 100 Carbon Dioxide 22 BUN 17 H Creatinine 1.25 Calcium 10.2 Liver Function 12/08/20 Range/Units 09:30 Total Bilirubin 0.6 (0.0-1.0) mg/dL Direct Bilirubin 0.3 (0.0-0.5) mg/dL AST 51 H (5-37) U/L ALT 30 (0-40) U/L Alkaline Phosphatase 48 (39-117) U/L Albumin 4.8 (3.5-5.0) g/dL Assessment and Plan (1) Abdominal pain: Qualifiers: Abdominal location: epigastric Qualified Code(s): R10.13 - Epigastric pain Status: Acute (2) Pancreatitis: Qualifiers: Acute pancreatitis complication: unspecified Chronicity: acute Pancreatitis type: unspecified pancreatitis type Qualified Code(s): K85.90 - Acute pancreatitis without necrosis or infection, unspecified Status: Acute 50 YM with DM, hyperlipidemia, GERD, depression, HAs, chronic back pain admitted with nausea, abdominal pain and elevated lipase due to acute on chronic pancreatitis. Abdominal CT scan showed an ill-defined fluid collection is present along the anterior aspect of the pancreas extending into the small bowel mesentery with normal enhancement and no necrosis. A few small scattered calcifications are present within the head of the pancreas without dilatation of the pancreatic duct. Patient has a history of recurrent episodes of pancreatitis for the past 12-15 years. Pancreatitis was attributed to hypertriglyceridemia (reported to have triglyceride levels of >1000) Triglycerides were 100 on current admission. Presence of calcifications are suggestive of underlying chronic pancreatitis. RECOMMENDATIONS: 1. Continue IV pain medications and clear liquid diet. 2. Records from [facility] and [facility] have been requested. 3. MRCP once abdominal pain improves to rule out pancreas divisum 4. General surgery consult to evaluate for Lap Kaycee since pancreatitis may be due to undiagnosed biliary microlithiasis. 5. Start on lowest dose of Creon once he is able to tolerate a full liquid diet. 6. Stool for pancreatic elastase to confirm presence of chronic pancreatitis
[2020-12-08 19:37] VITALS: BP 168/86; PULSE 94; RESP 18; TEMP 37.2; O2SAT 95
[2020-12-08 20:40] LABS: Glucose, Whole Blood 114 mg/dL (60-115)
[2020-12-08] MEDS: TiZANidine HCL 4 MG TABLET PO (20:47)
--- NOTE | 2020-12-08 22:58 | PC.NURSE ---
pt c/o 06/01 abd pain,medicated with dilaudid 0.5mg iv at 2046 with little effect.states only lasted about 45 min. notified.ordered dilaudid 0.5mg iv x 1 dose now.given at 2249.
[2020-12-08 23:18] VITALS: BP 125/73; PULSE 101; RESP 16; TEMP 36.9; O2SAT 91
--- NOTE | 2020-12-09 | ECG_ITS ---
Test Reason : chest pain Blood Pressure : / mmHG Vent. Rate : 102 BPM Atrial Rate : 102 BPM P-R Int : 154 ms QRS Dur : 114 ms QT Int : 364 ms P-R-T Axes : 037 066 012 degrees QTc Int : 474 ms Sinus tachycardia Possible Left atrial enlargement Borderline ECG When compared to the previous EKG of No significant changes seen Referred By: Christian Dueñas Electronically Signed By:German Herring
[2020-12-09] MEDS: ondansetron HCL 4 MG/2 ML VIAL IVPUSH ×3 (01:09→18:15)
[2020-12-09] MEDS: Lactated Ringers 1,000 ML 200 ML IVCONT ×5 (01:12→23:34)
[2020-12-09] MEDS: HYDROmorphone HCl 0.5 MG/0.5 ML SYRINGE 1 MG IVPUSH ×5 (01:39→21:21)
[2020-12-09 02:28] LABS: Troponin-I High Sensitivity < 3.5 ng/L (<3.5-35.0)
--- NOTE | 2020-12-09 02:39 | PC.NURSE ---
0116 pt still c/0 06/01 chest/upper abd pain.not due for pain med. notified.came to see pt.ordered stat ekg, kub and troponin.increased dilaudid to 1mg iv q 4hr.given at 0140.pt states pain is better now 03/01.kub negative,troponin <3.5 ekg sinus tachycardia possible left atrial enlargement. notified of above results.pt resting in bed at present time.
[2020-12-09 03:15] VITALS: BP 112/59; PULSE 100; RESP 18; TEMP 37; O2SAT 92
[2020-12-09 07:15] VITALS: BP 145/83; PULSE 100; RESP 18; TEMP 37.2; O2SAT 92
[2020-12-09 07:24] LABS: MANUAL DIFF FLAG NO
[2020-12-09 07:28] LABS: Basophils Percent Auto 0.1 % (0-2); Eosinophils Percent Auto 0.4 % (0-4); Imm Gran Abs Auto 0.03 X10*3/uL (0.00-0.03); Imm Gran Pct Auto 0.4 % (0.0-0.4); Lymphocytes Absolute Auto 1.4 X10*3/uL (1.2-4.9); Mean Corpuscular HGB Conc 32.5 g/dl (31.0-36.0); Mean Corpuscular Hemoglobin 28.2 pg (27.0-33.0); Mean Corpuscular Volume 86.8 fL (80-98); Mean Platelet Volume 12.7 fL (9.4-12.4); Monocytes Absolute Auto 0.7 X10*3/uL (0.1-1.2); Neutrophils Percent Auto 73.1 % (45-73); Platelet Count 185 X10*3/uL (160-400); Red Blood Count 4.61 X10*6/uL (4.60-5.80); Red Cell Distribution Width 14.2 % (11.0-16.0); White Blood Count 8.2 X10*3/uL (4.8-10.8)
[2020-12-09 07:48] LABS: Triglycerides 107 mg/dL
[2020-12-09 07:53] LABS: Gamma Glutamyl Transpeptidase 37 U/L (11-51)
[2020-12-09 07:54] LABS: Magnesium 1.7 mg/dL (1.6-2.6)
[2020-12-09 07:56] LABS: Troponin-I High Sensitivity < 3.5 ng/L (<3.5-35.0)
[2020-12-09 07:57] LABS: Glucose, Whole Blood 100 mg/dL (60-115)
[2020-12-09 07:57] LABS: Anion Gap 14 (12-20); Blood Urea Nitrogen 9 mg/dL (9-16); Calcium 8.9 mg/dL (8.4-10.2); Carbon Dioxide 24 mmol/L (22-29); Chloride 104 mmol/L (96-108); Creatinine Clr Calc Pharmacy 91.7; Estimated Glomerular Filt Rate > 60; Glucose Random 106 mg/dL (60-115); Potassium 3.9 mmol/L (3.3-5.1); Sodium 138 mmol/L (135-145)
[2020-12-09 08:10] LABS: HIV AB/AG Nonreactive (Nonreactive); HIV Num 1 0.07 S/CO (0.00-0.99); Lipase 606 U/L (8-78)
[2020-12-09] MEDS: TiZANidine HCL 4 MG TABLET PO ×3 (09:03→21:21)
[2020-12-09] MEDS: FLUoxetine HCl 20 MG CAPSULE PO (09:03)
[2020-12-09] MEDS: Fenofibrate 54 MG TABLET 108 MG PO (09:03)
--- NOTE | 2020-12-09 09:09 | P.PNIM_ITS ---
Subjective Subjective Date of Service: 12/09/20 Interval History: seen and examined this AM reports abdominal pain persists reports he went out to [place] where they did a CT scan and some blood work but wasnt told a reason for his pancreatitis ROS General - no fevers or chills Cardiovascular - no chest pain Respiratory - no shortness of breath or cough Abdominal- +abdominal pain Neuro - +migrane Physical Exam Vital Signs: Vital Signs: Last Vital Signs Temp 99.0 F 12/09/20 07:15 Pulse 100 12/09/20 07:15 Resp 18 12/09/20 07:15 BP 145/83 H 12/09/20 07:15 Pulse Ox 92 12/09/20 07:15 Body Mass Index 30.9 Const: General: cooperative, healthy appearing and no acute distress Eyes: Pupils: Equal, round and reactive pupils present Neck: Neck: Yes supple Chest: Chest palpation & inspection: normal inspection of the chest Resp: Effort & Inspection: normal respiratory effort and able to speak in complete sentences Auscultation: clear to auscultation bilaterally Cardio: Jugular venous distension: no JVD Rhythm: regular rhythm Heart sounds: S1 normal heart sound present and S2 normal heart sound present GI: Palpation (GI): Tenderness to palpation present (GI) and no guarding Skin: General skin exam: no rashes or lesions noted Neuro: Cranial nerves: Yes Equal, round and reactive pupils present Motor exam (neuro): Other motor observations present ( no motor deficit) Objective Data Current Medications Generic Name Dose Route Start Last Admin Trade Name Freq PRN Reason Stop Dose Admin Acetaminophen 650 mg 12/08/20 13:38 Acetaminophen 325 Mg Tablet PO Q6H PRN Pain, Mild (Pain Scale 1-3) Fenofibrate 108 mg 12/09/20 09:00 12/09/20 09:03 Fenofibrate 54 Mg Tablet PO 108 mg DAILY MACKENZIE Administration Fluoxetine HCl 20 mg 12/09/20 09:00 12/09/20 09:03 Fluoxetine Hcl 20 Mg Capsule PO 20 mg DAILY MACKENZIE Administration Hydromorphone HCl 1 mg 12/09/20 01:27 12/09/20 05:36 Hydromorphone Hcl 0.5 Mg/0.5 Ml Syringe IVPUSH 1 mg Q4H PRN Administration Pain, Moderate (Pain Scale 4-6 Lactated Ringer's 1,000 mls @ 200 mls/hr 12/08/20 13:45 12/09/20 09:05 Lr IVCONT Not Given .Q5H [facility] Insulin Human Lispro 0 unit 12/08/20 16:30 12/09/20 07:55 Insulin Lispro 100 Unit/Ml 3 Ml Vial SUBCUT Not Given QIDACHS [facility] Protocol Ondansetron HCl 4 mg 12/08/20 13:38 12/09/20 09:03 Ondansetron Hcl 4 Mg/2 Ml Vial IVPUSH 4 mg Q8H PRN Administration Nausea and Vomiting Pantoprazole Sodium 40 mg 12/08/20 13:40 12/09/20 05:41 Pantoprazole Sodium 40 Mg/10 Ml Vial IVPUSH Not Given DAILY@0630 [facility] Pharmacy Consult 1 each 12/08/20 10:53 Consult Rx Perform Med Rec MISCELLANE ONCE PRN Consult order Pioglitazone HCl 15 mg 12/08/20 21:00 12/09/20 09:03 Pioglitazone Hcl 15 Mg Tablet PO 15 mg BID MACKENZIE Administration Sodium Chloride 3 ml 12/08/20 16:00 12/09/20 07:56 0.9 % Sodium Chloride Flush 3 Ml Syringe IVFLUSH Not Given QSHIFT [facility] Tizanidine HCl 4 mg 12/08/20 21:00 12/09/20 09:03 Tizanidine Hcl 4 Mg Tablet PO 4 mg TID MACKENZIE Administration Labs CBC & Chem 7: 12/09/20 07:04 12/09/20 07:04 Assessment and Plan (1) Pancreatitis: Status: Acute Assessment and Plan: Past medical history of question idiopathic pancreatitis, diabetes mellitus, hyperlipidemia, chronic migraines who presents to the hospital with sudden onset of abdominal pain and is diagnosed with acute pancreatitis. 1. Acute Pancreatitis Reports he has been worked up in the past with no specific cause identified Does have risk factors of hypertriglyceridemia, although they are not significantly elevated For now continue aggressive fluid resuscitation and IV pain control Pain is still not well controlled, will increase IV Dilaudid frequency. Gastroenterology consult Start clear liquids 2. DM hold home oral meds use sliding scale 3. HypoMg repleted IV now normal, monitor 4. Migraines continue sumatriptan 5. HyperTG fibrates Full Code DVT pptx, Lovenox
[2020-12-09] MEDS: Omeprazole 40 MG CAPSULE.DR PO (09:54)
[2020-12-09] MEDS: Enoxaparin Sodium 40 MG/0.4 ML SYRINGE SUBCUT (09:54)
[2020-12-09] MEDS: HYDROmorphone HCl 0.5 MG/0.5 ML SYRINGE IVPUSH ×4 (09:55→23:34)
[2020-12-09] MEDS: SUMAtriptan succinate 100 MG TABLET PO (10:50)
[2020-12-09 11:31] VITALS: BP 143/82; PULSE 102; RESP 18; TEMP 36.8; O2SAT 92
[2020-12-09 11:57] LABS: Glucose, Whole Blood 101 mg/dL (60-115)
--- NOTE | 2020-12-09 14:56 | MHC.CM.PN ---
IMM 12/09/20, EMR REVIEWED, PT ADMITTED W/PANCREATITIS, CM MET W/PT WHO IS A&O, INDEPENDENT W/ALL CARE, [facility] IS THE ONLY A DME PT USES, NO HOME SERVICES, PT VERIFIES PCP, PHARMACY AND [id number] HE WOULD LIKE TO COMPLETE A HCP PRIOR TO D/C, CM WILL CHECK IN W/PT TOMORROW TO COMPLETE. PCP: MOOKIE CYR
[2020-12-09 15:14] VITALS: BP 137/79; PULSE 97; RESP 20; TEMP 37.1; O2SAT 94
[2020-12-09] MEDS: 0.9 % Sodium Chloride Flush 3 ML SYRINGE IVFLUSH (15:57)
[2020-12-09 16:34] LABS: Glucose, Whole Blood 100 mg/dL (60-115)
--- NOTE | 2020-12-09 18:35 | P.CONGS_ITS ---
History of Present Illness Consult details Consult date: 12/09/20 Reason for consult: other (Current pancreatitis) Requesting physician: Yovany Jenkins Narrative: This is a 50-year-old gentleman who was admitted yesterday for treatment of recurrent pancreatitis. He gives a history of as many as 8 episodes of pancreatitis over the past 10 years or so. He has undergone an extensive workup and no etiology has been identified. He reports that he has undergone MRI, CT scan and abdominal ultrasound. His last ultrasound was done in [place] about 2 weeks ago. He reports that he was told that no abnormalities were seen. He does not have a history of gallstones. He does not drink alcohol. His old record demonstrates multiple elevated triglyceride levels ranging from 397 in 2012 to 304 in 2019. Triglyceride level this morning was 107. Lipase was elevated at 606 decreased from 1226 yesterday. Liver function studies were normal with the exception of a a somewhat elevated AST at 51 He reports that the current episode began shortly after he ate a cheeseburger. He developed nausea followed quickly by diffuse upper abdominal pain. He does not report fever or chills. CT scan of the abdomen and pelvis done in the emergency department was consistent with acute pancreatitis. Review of Systems Constitutional: Constitutional: Denies chills and Denies fever(s) Cardiovascular: Cardiovascular: Denies chest pain and Denies dyspnea Respiratory: Respiratory: Denies cough and Denies dyspnea PMFSH Past Medical History Medical History Depression Diabetes HTN (hypertension) Kidney stone Migraine Pancreatitis Surgical History Surgical History H/O neck surgery Social History Social History Household Members: Spouse Housing: Apartment Do you presently have visiting nurse or other home services: No Alcohol intake: never Smoking Status: Never smoker Use of substances other than those prescribed or required for medical reasons: No Currently Displaying Signs/Symptoms of Drug Intoxication Withdrawal: No Do you feel safe in your current relationship?: Yes Is there a partner from a previous relationship who is making you feel unsafe now?: No Are you made to feel afraid or neglected: No Advance Directives: No Advance Directives Information Provided: No Do you have thoughts of harming others: None Do you have a plan to hurt others: No Plan Recently lost weight without trying: No service: No Current occupational status: disabled Meds Allergies Allergy/AdvReac Type Severity Reaction Status Date / Time gabapentin [GABAPENTIN] Allergy Mild RASH Verified 12/08/20 17:03 famotidine [From Pepcid] Allergy Unknown RASH Verified 12/08/20 17:03 pregabalin [From LYRICA] Allergy Unknown VOMITING Verified 12/08/20 17:03 pantoprazole [From Protonix] Allergy Rash Verified 12/08/20 17:03 ibuprofen [From Advil] AdvReac Unknown STOMACH Verified 12/08/20 17:03 UPSET Active Medications: Current Medications Generic Name Dose Route Start Last Admin Trade Name Freq PRN Reason Stop Dose Admin Acetaminophen 650 mg 12/08/20 13:38 Acetaminophen 325 Mg Tablet PO Q6H PRN Pain, Mild (Pain Scale 1-3) Enoxaparin Sodium 40 mg 12/09/20 09:30 12/09/20 09:54 Enoxaparin Sodium 40 Mg/0.4 Ml Syringe SUBCUT 40 mg Q24H MACKENZIE Administration Fenofibrate 108 mg 12/09/20 09:00 12/09/20 09:03 Fenofibrate 54 Mg Tablet PO 108 mg DAILY MACKENZIE Administration Fluoxetine HCl 20 mg 12/09/20 09:00 12/09/20 09:03 Fluoxetine Hcl 20 Mg Capsule PO 20 mg DAILY MACKENZIE Administration Hydromorphone HCl 1 mg 12/09/20 01:27 12/09/20 15:56 Hydromorphone Hcl 0.5 Mg/0.5 Ml Syringe IVPUSH 1 mg Q4H PRN Administration Pain, Moderate (Pain Scale 4-6 Hydromorphone HCl 0.5 mg 12/09/20 09:12 12/09/20 18:15 Hydromorphone Hcl 0.5 Mg/0.5 Ml Syringe IVPUSH 0.5 mg Q2H PRN Administration Pain, Moderate (Pain Scale 4-6 Lactated Ringer's 1,000 mls @ 200 mls/hr 12/08/20 13:45 12/09/20 18:14 Lr IVCONT 200 mls/hr .Q5H MACKENZIE Administration Insulin Human Lispro 0 unit 12/08/20 16:30 12/09/20 16:01 Insulin Lispro 100 Unit/Ml 3 Ml Vial SUBCUT Not Given QIDACHS COUNTS INCLUDE 234 BEDS AT [facility] Protocol Omeprazole 40 mg 12/09/20 09:25 12/09/20 09:54 Omeprazole 40 Mg Capsule.Dr PO 40 mg DAILY MACKENZIE Administration Ondansetron HCl 4 mg 12/08/20 13:38 12/09/20 18:15 Ondansetron Hcl 4 Mg/2 Ml Vial IVPUSH 4 mg Q8H PRN Administration Nausea and Vomiting Pharmacy Consult 1 each 12/08/20 10:53 Consult Rx Perform Med Rec MISCELLANE ONCE PRN Consult order Sodium Chloride 3 ml 12/08/20 16:00 12/09/20 15:57 0.9 % Sodium Chloride Flush 3 Ml Syringe IVFLUSH 3 ml QSHIFT COUNTS INCLUDE 234 BEDS AT [facility] Administration Sumatriptan Succinate 100 mg 12/09/20 09:26 12/09/20 10:50 Sumatriptan Succinate 100 Mg Tablet PO 100 mg DAILY PRN Administration Migraine Headache Tizanidine HCl 4 mg 12/08/20 21:00 12/09/20 15:57 Tizanidine Hcl 4 Mg Tablet PO 4 mg TID MACKENZIE Administration Home Medications Medication Instructions Recorded Confirmed Last Taken Type fenofibrate 2 tab PO DAILY 12/08/20 12/08/20 Unknown History fluoxetine 1 cap PO DAILY 12/08/20 12/08/20 Unknown History galcanezumab-gnlm [Emgality Pen] 1 mg SUBCUT Q4W 12/08/20 12/08/20 11/29/20 History nortriptyline 25 cap PO BEDTIME 12/08/20 12/08/20 Unknown History omeprazole 1 cap PO DAILY 12/08/20 12/08/20 Unknown History ondansetron 1 tab PO Q8H PRN 12/08/20 12/08/20 Unknown History oxycodone 1 tab PO QID PRN 12/08/20 12/08/20 Unknown History pioglitazone 1 tab PO BID 12/08/20 12/08/20 Unknown History rosuvastatin 1 tab PO DAILY 12/08/20 12/08/20 Unknown History sumatriptan succinate 100 mg PO DAILY PRN 12/08/20 12/09/20 Unknown History tizanidine 1 tab PO TID 12/08/20 12/08/20 Unknown History zolpidem 10 tab PO BEDTIME PRN 12/08/20 12/08/20 Unknown History Physical Exam Vital Signs: Vital Signs: Last Vital Signs Temp 98.8 F 12/09/20 15:14 Pulse 97 12/09/20 15:14 Resp 20 12/09/20 15:14 BP 137/79 12/09/20 15:14 Pulse Ox 94 12/09/20 15:14 Body Mass Index 30.9 Const: Other: Appears uncomfortable but not in acute distress General: alert HENMT: Head: Yes normocephalic and Yes atraumatic Neck: Neck: Yes trachea midline Resp: Effort & Inspection: normal respiratory effort Auscultation: clear to auscultation bilaterally Cardio: Rate: regular rate Rhythm: regular rhythm Heart sounds: no murmurs GI: Other: Slightly distended, soft, diffusely tender most significantly in upper abdomen, no palpable masses, no obvious organomegaly Skin: Other: Normal color, warm and dry Results Labs Result diagrams: 12/09/20 07:04 12/09/20 07:04 Labs: Abnormal lab results 12/09/20 12/09/20 Range/Units 07:04 07:04 Hgb 13.0 L (14.0-18.0) g/dl Hct 40.0 L (42-52) % MPV 12.7 H (9.4-12.4) fL Neut % (Auto) 73.1 H (45-73) % Lymph % (Auto) 17.0 L (20-40) % Lipase 606 H (8-78) U/L Short CBC 12/09/20 Range/Units 07:04 WBC 8.2 (4.8-10.8) X10*3/uL Hgb 13.0 L (14.0-18.0) g/dl Hct 40.0 L (42-52) % Plt Count 185 (160-400) X10*3/uL BMP 12/09/20 07:04 Sodium 138 Potassium 3.9 Chloride 104 Carbon Dioxide 24 BUN 9 Creatinine 0.95 Calcium 8.9 D Liver Function 12/09/20 Range/Units 07:04 GGT 37 (11-51) U/L All other labs normal. Assessment and Plan (1) Pancreatitis: Qualifiers: Acute pancreatitis complication: unspecified Chronicity: acute Pancreatitis type: unspecified pancreatitis type Qualified Code(s): K85.90 - Acute pancreatitis without necrosis or infection, unspecified Status: Acute This is a 50-year-old male with recurrent pancreatitis, etiology unclear. Review of the record demonstrates that his triglyceride level has been elevated in the past, though it is normal the time of this admission. If the pancreatitis is not felt to be related to hypertriglyceridemia, and no other etiology has been identified, it would be reasonable to consider laparoscopic cholecystectomy following resolution of the his current episode of acute pancreatitis as cholecystectomy has been shown in some cases to decrease the frequency or eliminate future episodes of pancreatitis. We discussed this. He understands that no guarantee can be made regarding whether he would have any benefit following laparoscopic cholecystectomy. I reviewed the technique of laparoscopic cholecystectomy with him and discussed the anticipated course of recovery following either laparoscopic or open cholecystectomy. I explained that open cholecystectomy is sometimes needed. We discussed risks including but not limited to infection, bleeding, DVT and PE, chronic loose stool, retained stones, bile leak and bile duct injuries. General Surgery Service will follow along.
[2020-12-09 19:30] VITALS: BP 111/61; PULSE 93; RESP 20; TEMP 37.1; O2SAT 94
[2020-12-09 21:11] LABS: Glucose, Whole Blood 92 mg/dL (60-115)
[2020-12-09 23:13] VITALS: BP 139/61; PULSE 94; RESP 20; TEMP 37.1; O2SAT 94
[2020-12-10] VITALS (13 sets, daily range): BP systolic 102–155; BP diastolic 62–91; PULSE 98–102; RESP 15–20; TEMP 36.4–37.2; O2SAT 90–96
[2020-12-10] MEDS: HYDROmorphone HCl 0.5 MG/0.5 ML SYRINGE IVPUSH ×7 (01:46→23:51)
[2020-12-10 04:35] LABS: Glucose, Whole Blood 98 mg/dL (60-115)
[2020-12-10] MEDS: Lactated Ringers 1,000 ML 200 ML IVCONT (05:48)
[2020-12-10 07:28] LABS: Glucose, Whole Blood 88 mg/dL (60-115)
[2020-12-10] MEDS: HYDROmorphone HCl 0.5 MG/0.5 ML SYRINGE 1 MG IVPUSH ×3 (07:48→16:37)
[2020-12-10] MEDS: 0.9 % Sodium Chloride Flush 3 ML SYRINGE IVFLUSH ×2 (07:48→16:38)
[2020-12-10] MEDS: ondansetron HCL 4 MG/2 ML VIAL IVPUSH (07:51)
[2020-12-10] MEDS: SUMAtriptan succinate 100 MG TABLET PO (08:46)
[2020-12-10] MEDS: Fenofibrate 54 MG TABLET 108 MG PO (08:49)
[2020-12-10] MEDS: TiZANidine HCL 4 MG TABLET PO ×3 (08:50→21:08)
[2020-12-10] MEDS: Omeprazole 40 MG CAPSULE.DR PO (08:51)
[2020-12-10] MEDS: FLUoxetine HCl 20 MG CAPSULE PO (08:51)
[2020-12-10] MEDS: Enoxaparin Sodium 40 MG/0.4 ML SYRINGE SUBCUT (08:52)
--- NOTE | 2020-12-10 09:27 | P.PNIM_ITS ---
Subjective Subjective Date of Service: 12/10/20 Interval History: seen and examined this AM reports abdominal pain slightly better, but still afraid to eat tells me he met with gen surg yesterday and hes thinking about proceeding with eventual CCK denies BOLANOS this AM ROS General - no fevers or chills Cardiovascular - no chest pain Respiratory - no shortness of breath or cough Abdominal- +abdominal pain Neuro - no migranes this AM Physical Exam Vital Signs: Vital Signs: Last Vital Signs Temp 98.7 F 12/10/20 04:00 Pulse 102 H 12/10/20 07:55 Resp 18 12/10/20 07:48 BP 142/91 H 12/10/20 07:55 Pulse Ox 92 12/10/20 04:00 Body Mass Index 30.9 Const: General: cooperative, healthy appearing and no acute distress Eyes: Pupils: Equal, round and reactive pupils present Neck: Neck: Yes supple Chest: Chest palpation & inspection: normal inspection of the chest Resp: Effort & Inspection: normal respiratory effort and able to speak in comp lete sentences Auscultation: clear to auscultation bilaterally Cardio: Jugular venous distension: no JVD Rhythm: regular rhythm Heart sounds: S1 normal heart sound present and S2 normal heart sound present GI: Palpation (GI): Tenderness to palpation present (GI) (slightly better) and no guarding Skin: General skin exam: no rashes or lesions noted Neuro: Cranial nerves: Yes Equal, round and reactive pupils present Motor exam (neuro): Other motor observations present ( no motor deficit) Objective Data Current Medications Generic Name Dose Route Start Last Admin Trade Name Freq PRN Reason Stop Dose Admin Acetaminophen 650 mg 12/08/20 13:38 Acetaminophen 325 Mg Tablet PO Q6H PRN Pain, Mild (Pain Scale 1-3) Enoxaparin Sodium 40 mg 12/09/20 09:30 12/10/20 08:52 Enoxaparin Sodium 40 Mg/0.4 Ml Syringe SUBCUT 40 mg Q24H MACKENZIE Administration Fenofibrate 108 mg 12/09/20 09:00 12/10/20 08:49 Fenofibrate 54 Mg Tablet PO 108 mg DAILY MACKENZIE Administration Fluoxetine HCl 20 mg 12/09/20 09:00 12/10/20 08:51 Fluoxetine Hcl 20 Mg Capsule PO 20 mg DAILY MACKENZIE Administration Hydromorphone HCl 1 mg 12/09/20 01:27 12/10/20 07:48 Hydromorphone Hcl 0.5 Mg/0.5 Ml Syringe IVPUSH 1 mg Q4H PRN Administration Pain, Moderate (Pain Scale 4-6 Hydromorphone HCl 0.5 mg 12/09/20 09:12 12/10/20 04:31 Hydromorphone Hcl 0.5 Mg/0.5 Ml Syringe IVPUSH 0.5 mg Q2H PRN Administration Pain, Moderate (Pain Scale 4-6 Lactated Ringer's 1,000 mls @ 200 mls/hr 12/08/20 13:45 12/10/20 05:48 Lr IVCONT 200 mls/hr .Q5H MACKENZIE Administration Insulin Human Lispro 0 unit 12/08/20 16:30 12/10/20 07:40 Insulin Lispro 100 Unit/Ml 3 Ml Vial SUBCUT Not Given QIDACHS [facility] Protocol Omeprazole 40 mg 12/09/20 09:25 12/10/20 08:51 Omeprazole 40 Mg Capsule.Dr PO 40 mg DAILY MACKENZIE Administration Ondansetron HCl 4 mg 12/08/20 13:38 12/10/20 07:51 Ondansetron Hcl 4 Mg/2 Ml Vial IVPUSH 4 mg Q8H PRN Administration Nausea and Vomiting Pharmacy Consult 1 each 12/08/20 10:53 Consult Rx Perform Med Rec MISCELLANE ONCE PRN Consult order Sodium Chloride 3 ml 12/08/20 16:00 12/10/20 07:48 0.9 % Sodium Chloride Flush 3 Ml Syringe IVFLUSH 3 ml QSHIFT MACKENZIE Administration Sumatriptan Succinate 100 mg 12/09/20 09:26 12/10/20 08:46 Sumatriptan Succinate 100 Mg Tablet PO 100 mg DAILY PRN Administration Migraine Headache Tizanidine HCl 4 mg 12/08/20 21:00 12/10/20 08:50 Tizanidine Hcl 4 Mg Tablet PO 4 mg TID MACKENZIE Administration Labs CBC & Chem 7: 12/09/20 07:04 12/09/20 07:04 Assessment and Plan (1) Pancreatitis: Status: Acute Assessment and Plan: Past medical history of question idiopathic pancreatitis, diabetes mellitus, hyperlipidemia, chronic migraines who presents to the hospital with sudden onset of abdominal pain and is diagnosed with acute pancreatitis. 1. Acute Pancreatitis Reports he has been worked up in the past with no specific cause identified Does have risk factors of hypertriglyceridemia, although they are not significantly elevated continue IVF and continue IV pain control, if not improved, will consider repeat imaging continue clear liquids as the patients symptoms still persis GI and Gen Surg consults appreciated -- pt contemplating eventual cck 2. DM hold home oral meds use sliding scale 3. HypoMg repleted IV now normal, monitor 4. Migraines continue sumatriptan 5. HyperTG fibrates Full Code DVT pptx, Lovenox
[2020-12-10 10:18] LABS: Hematocrit 38.5 % (42-52); Hemoglobin 12.5 g/dl (14.0-18.0); Mean Corpuscular HGB Conc 32.5 g/dl (31.0-36.0); Mean Corpuscular Hemoglobin 28.2 pg (27.0-33.0); Mean Corpuscular Volume 86.9 fL (80-98); Mean Platelet Volume 12.2 fL (9.4-12.4); Platelet Count 175 X10*3/uL (160-400); Red Blood Count 4.43 X10*6/uL (4.60-5.80); Red Cell Distribution Width 14.1 % (11.0-16.0); White Blood Count 11.1 X10*3/uL (4.8-10.8)
[2020-12-10 10:41] LABS: Anion Gap 17 (12-20); Blood Urea Nitrogen 9 mg/dL (9-16); Calcium 9.2 mg/dL (8.4-10.2); Carbon Dioxide 22 mmol/L (22-29); Chloride 104 mmol/L (96-108); Creatinine Clr Calc Pharmacy 87.9; Estimated Glomerular Filt Rate > 60; Glucose Random 93 mg/dL (60-115); Potassium 3.5 mmol/L (3.3-5.1); Sodium 139 mmol/L (135-145)
[2020-12-10 11:04] LABS: Lipase 138 U/L (8-78)
[2020-12-10 11:22] LABS: Glucose, Whole Blood 96 mg/dL (60-115)
[2020-12-10] MEDS: Lactated Ringers 1,000 ML 125 ML IVCONT ×2 (11:50→19:37)
--- NOTE | 2020-12-10 12:33 | MHC.CM.PN ---
EMR REVIEWED, CM MET W/HOSPITALIST WHO REPORTED NO D/C PLANNED FOR TODAY, CM MET W/PT TO COMPLETE HCP. PT NAMES HIS PARTNER [facility] DORI RODRIGUEZ [phone], ALTERNATE IS TYLER DIAZ (NEPHEW) [phone]. DISCHARGE PLAN: HOME SELF-CARE, PARTNER TO TRANSPORT
[2020-12-10 16:23] LABS: Glucose, Whole Blood 100 mg/dL (60-115)
[2020-12-10 20:33] LABS: Glucose, Whole Blood 98 mg/dL (60-115)
[2020-12-10] MEDS: Zolpidem Tartrate 5 MG TABLET PO (22:48)
[2020-12-11] VITALS (12 sets, daily range): BP systolic 103–150; BP diastolic 48–90; PULSE 85–98; RESP 16–20; TEMP 36.1–36.7; O2SAT 93–97
[2020-12-11] MEDS: HYDROmorphone HCl 0.5 MG/0.5 ML SYRINGE IVPUSH ×11 (01:53→23:20)
[2020-12-11] MEDS: Lactated Ringers 1,000 ML 125 ML IVCONT ×2 (03:35→11:44)
[2020-12-11 06:47] LABS: Hematocrit 38.6 % (42-52); Hemoglobin 12.4 g/dl (14.0-18.0); Mean Corpuscular HGB Conc 32.1 g/dl (31.0-36.0); Mean Corpuscular Hemoglobin 28.1 pg (27.0-33.0); Mean Corpuscular Volume 87.5 fL (80-98); Mean Platelet Volume 12.4 fL (9.4-12.4); Platelet Count 181 X10*3/uL (160-400); Red Blood Count 4.41 X10*6/uL (4.60-5.80); Red Cell Distribution Width 13.9 % (11.0-16.0); White Blood Count 10.2 X10*3/uL (4.8-10.8)
[2020-12-11 06:52] LABS: Anion Gap 16 (12-20); Blood Urea Nitrogen 8 mg/dL (9-16); Calcium 9.2 mg/dL (8.4-10.2); Carbon Dioxide 25 mmol/L (22-29); Chloride 99 mmol/L (96-108); Creatinine Clr Calc Pharmacy 102.4; Estimated Glomerular Filt Rate > 60; Glucose Random 88 mg/dL (60-115); Potassium 3.6 mmol/L (3.3-5.1); Sodium 136 mmol/L (135-145)
[2020-12-11 08:07] LABS: Glucose, Whole Blood 87 mg/dL (60-115)
[2020-12-11] MEDS: FLUoxetine HCl 20 MG CAPSULE PO (09:30)
[2020-12-11] MEDS: TiZANidine HCL 4 MG TABLET PO ×3 (09:30→21:17)
[2020-12-11] MEDS: Fenofibrate 54 MG TABLET 108 MG PO (09:31)
[2020-12-11] MEDS: Enoxaparin Sodium 40 MG/0.4 ML SYRINGE SUBCUT (09:31)
[2020-12-11] MEDS: Omeprazole 40 MG CAPSULE.DR PO (09:31)
[2020-12-11] MEDS: ondansetron HCL 4 MG/2 ML VIAL IVPUSH (09:47)
--- NOTE | 2020-12-11 09:47 | HO.PM.IMPN ---
Subjective Subjective Date of Service: 12/11/20 <Surekha Sutherland NP - Last Filed: 12/11/20 16:33> 12/11/20 <Yovany Jenkins MD - Last Filed: 12/16/20 08:19> Interval History: Follow up pancreatitis. Still with abdominal pain and nausea. <Surekha Sutherland NP - Last Filed: 12/11/20 16:33> Physical Exam Vital Signs: Vital Signs: Last Vital Signs Temp 96.9 F 12/11/20 07:24 Pulse 95 12/11/20 07:24 Resp 18 12/11/20 08:25 BP 142/81 H 12/11/20 07:24 Pulse Ox 95 12/11/20 07:24 Body Mass Index 30.9 <Surekha Sutherland NP - Last Filed: 12/11/20 16:33> Appearing in no acute distress lung sounds are clear to auscultation heart regular rate rhythm, clear S1, S2 positive bowel sounds, abdomen tender neuro patient is alert x3, no focal deficits <Surekha Sutherland NP - Last Filed: 12/11/20 16:33> Objective Data Current Medications Generic Name Dose Route Start Last Admin Trade Name Freq PRN Reason Stop Dose Admin Acetaminophen 650 mg 12/08/20 13:38 Acetaminophen 325 Mg Tablet PO Q6H PRN Pain, Mild (Pain Scale 1-3) Enoxaparin Sodium 40 mg 12/09/20 09:30 12/11/20 09:31 Enoxaparin Sodium 40 Mg/0.4 Ml Syringe SUBCUT 40 mg Q24H MACKENZIE Administration Fenofibrate 108 mg 12/09/20 09:00 12/11/20 09:31 Fenofibrate 54 Mg Tablet PO 108 mg DAILY MACKENZIE Administration Fluoxetine HCl 20 mg 12/09/20 09:00 12/11/20 09:30 Fluoxetine Hcl 20 Mg Capsule PO 20 mg DAILY MACKENZIE Administration Hydromorphone HCl 1 mg 12/09/20 01:27 12/10/20 16:37 Hydromorphone Hcl 0.5 Mg/0.5 Ml Syringe IVPUSH 1 mg Q4H PRN Administration Pain, Moderate (Pain Scale 4-6 Hydromorphone HCl 0.5 mg 12/09/20 09:12 12/11/20 08:25 Hydromorphone Hcl 0.5 Mg/0.5 Ml Syringe IVPUSH 0.5 mg Q2H PRN Administration Pain, Moderate (Pain Scale 4-6 Lactated Ringer's 1,000 mls @ 125 mls/hr 12/08/20 13:45 12/11/20 03:35 Lr IVCONT 125 mls/hr .Q8H MACKENZIE Administration Insulin Human Lispro 0 unit 12/08/20 16:30 12/11/20 07:52 Insulin Lispro 100 Unit/Ml 3 Ml Vial SUBCUT Not Given QIDACHS [facility] Protocol Omeprazole 40 mg 12/09/20 09:25 12/11/20 09:31 Omeprazole 40 Mg Capsule.Dr PO 40 mg DAILY MACKENZIE Administration Ondansetron HCl 4 mg 12/08/20 13:38 12/10/20 07:51 Ondansetron Hcl 4 Mg/2 Ml Vial IVPUSH 4 mg Q8H PRN Administration Nausea and Vomiting Pharmacy Consult 1 each 12/08/20 10:53 Consult Rx Perform Med Rec MISCELLANE ONCE PRN Consult order Sodium Chloride 3 ml 12/08/20 16:00 12/11/20 07:24 0.9 % Sodium Chloride Flush 3 Ml Syringe IVFLUSH Not Given QSHIFT [facility] Sumatriptan Succinate 100 mg 12/09/20 09:26 12/10/20 08:46 Sumatriptan Succinate 100 Mg Tablet PO 100 mg DAILY PRN Administration Migraine Headache Tizanidine HCl 4 mg 12/08/20 21:00 12/11/20 09:30 Tizanidine Hcl 4 Mg Tablet PO 4 mg TID MACKENZIE Administration Zolpidem Tartrate 5 mg 12/10/20 18:05 12/10/20 22:48 Zolpidem Tartrate 5 Mg Tablet PO 5 mg BEDTIME PRN Administration Insomnia <Surekha Sutherland NP - Last Filed: 12/11/20 16:33> Labs CBC & Chem 7: : 12/14/20 07:46 12/15/20 05:36 <Surekha Sutherland NP - Last Filed: 12/11/20 16:33> Assessment and Plan (1) Pancreatitis: Status: Acute <Surekha Sutherland NP - Last Filed: 12/11/20 16:33> Assessment and Plan: Past medical history of question idiopathic pancreatitis, diabetes mellitus, hyperlipidemia, chronic migraines who presents to the hospital with sudden onset of abdominal pain and is diagnosed with acute pancreatitis. Acute Pancreatitis. Lipase 138. Reports he has been worked up in the past with no specific cause identified. Does have risk factors of hypertriglyceridemia, although they are not significantly elevated continue IVF and continue IV pain control, if not improved, will consider repeat imaging continue clear liquids as the patients symptoms still persist advance as tolerated GI and Gen Surg consults appreciated Possibly outpatient Cholecystectomy to reduce episodes of pancreatitis. Outpatient MRCP and further workup PRSS1, celiac and other genetic mutations that may cause chronic pancreatitis Atelectasis. Pain likely contributing. Incentive spirometry DM hold home oral meds use sliding scale HypoMg repleted IV now normal, monitor Migraines continue home medications HyperTG fibrates Full Code DVT pptx, Lovenox Attending: Dr. Jenkins <Surekha Sutherland NP - Last Filed: 12/11/20 16:33>
[2020-12-11] MEDS: SUMAtriptan succinate 100 MG TABLET PO (09:52)
--- NOTE | 2020-12-11 11:26 | MHC.CM.PN ---
CM MET W/HOSPITALIST WHO REPORTED PT CONT'S TO HAVE HYPOXIA AND UNCONTROLLED PAIN, PT WILL NEED LAP CHOLEY AFTER D/C, NO PLAN FOR D/C TODAY.
[2020-12-11 11:32] LABS: Glucose, Whole Blood 96 mg/dL (60-115)
[2020-12-11 16:17] LABS: Glucose, Whole Blood 83 mg/dL (60-115)
[2020-12-11 20:21] LABS: Glucose, Whole Blood 100 mg/dL (60-115)
[2020-12-11] MEDS: 0.9 % Sodium Chloride Flush 3 ML SYRINGE IVFLUSH (21:21)
[2020-12-11] MEDS: Zolpidem Tartrate 5 MG TABLET PO (21:23)
[2020-12-12] MEDS: HYDROmorphone HCl 0.5 MG/0.5 ML SYRINGE IVPUSH ×7 (02:23→16:28)
[2020-12-12 04:00] VITALS: BP 119/79; PULSE 100; RESP 20; TEMP 36.3; O2SAT 97
[2020-12-12 07:29] VITALS: BP 137/75; PULSE 105; RESP 18; TEMP 36.2; O2SAT 95
[2020-12-12 08:07] LABS: Glucose, Whole Blood 89 mg/dL (60-115)
[2020-12-12] MEDS: TiZANidine HCL 4 MG TABLET PO ×3 (08:52→20:35)
[2020-12-12] MEDS: Omeprazole 40 MG CAPSULE.DR PO (08:52)
[2020-12-12] MEDS: FLUoxetine HCl 20 MG CAPSULE PO (08:53)
[2020-12-12] MEDS: Fenofibrate 54 MG TABLET 108 MG PO (08:53)
[2020-12-12] MEDS: 0.9 % Sodium Chloride Flush 3 ML SYRINGE IVFLUSH ×2 (08:53→15:04)
[2020-12-12] MEDS: Enoxaparin Sodium 40 MG/0.4 ML SYRINGE SUBCUT (08:53)
[2020-12-12] MEDS: ondansetron HCL 4 MG/2 ML VIAL IVPUSH (08:59)
[2020-12-12] MEDS: SUMAtriptan succinate 100 MG TABLET PO (11:09)
[2020-12-12 11:37] LABS: Glucose, Whole Blood 90 mg/dL (60-115)
[2020-12-12 12:00] VITALS: BP 132/65; PULSE 103; RESP 19; TEMP 36.2; O2SAT 95
[2020-12-12] MEDS: iohexoL 350 MG/ML 100 ML INFUS..BTL IV (12:10)
--- NOTE | 2020-12-12 14:44 | P.PNIM_ITS ---
Subjective Subjective Date of Service: 12/12/20 Interval History: seen and examined this AM pain still persists tried to eat a bit orally but didnt tolerate it ROS General - no fevers or chills Cardiovascular - no chest pain Respiratory - no shortness of breath or cough Abdominal- +pain Physical Exam Vital Signs: Vital Signs: Last Vital Signs Temp 97.1 F 12/12/20 07:29 Pulse 105 H 12/12/20 07:29 Resp 18 12/12/20 07:29 BP 137/75 12/12/20 07:29 Pulse Ox 95 12/12/20 07:29 Body Mass Index 30.9 Const: Other: General - no acute distress, appears comfortable Cardiovascular - regular rate and rhythm, S1-S2 Lungs - normal respiratory effort, clear to auscultation bilaterally, no wheezing Abdomen - diffuse pain without guarding Extremities - no edema bilaterally Neuro - awake and alert, no focal deficits Objective Data Current Medications Generic Name Dose Route Start Last Admin Trade Name Freq PRN Reason Stop Dose Admin Acetaminophen 650 mg 12/08/20 13:38 Acetaminophen 325 Mg Tablet PO Q6H PRN Pain, Mild (Pain Scale 1-3) Enoxaparin Sodium 40 mg 12/09/20 09:30 12/12/20 08:53 Enoxaparin Sodium 40 Mg/0.4 Ml Syringe SUBCUT 40 mg Q24H MACKENZIE Administration Fenofibrate 108 mg 12/09/20 09:00 12/12/20 08:53 Fenofibrate 54 Mg Tablet PO 108 mg DAILY MACKENZIE Administration Fluoxetine HCl 20 mg 12/09/20 09:00 12/12/20 08:53 Fluoxetine Hcl 20 Mg Capsule PO 20 mg DAILY MACKENZIE Administration Hydromorphone HCl 1 mg 12/09/20 01:27 12/10/20 16:37 Hydromorphone Hcl 0.5 Mg/0.5 Ml Syringe IVPUSH 1 mg Q4H PRN Administration Pain, Moderate (Pain Scale 4-6 Hydromorphone HCl 0.5 mg 12/09/20 09:12 12/12/20 13:42 Hydromorphone Hcl 0.5 Mg/0.5 Ml Syringe IVPUSH 0.5 mg Q2H PRN Administration Pain, Moderate (Pain Scale 4-6 Insulin Human Lispro 0 unit 12/08/20 16:30 12/12/20 11:10 Insulin Lispro 100 Unit/Ml 3 Ml Vial SUBCUT Not Given QIDACHS [facility] Protocol Omeprazole 40 mg 12/09/20 09:25 12/12/20 08:52 Omeprazole 40 Mg Capsule. PO 40 mg DAILY MACKENZIE Administration Ondansetron HCl 4 mg 12/08/20 13:38 12/12/20 08:59 Ondansetron Hcl 4 Mg/2 Ml Vial IVPUSH 4 mg Q8H PRN Administration Nausea and Vomiting Pharmacy Consult 1 each 12/08/20 10:53 Consult Rx Perform Med Rec MISCELLANE ONCE PRN Consult order Sodium Chloride 3 ml 12/08/20 16:00 12/12/20 08:53 0.9 % Sodium Chloride Flush 3 Ml Syringe IVFLUSH 3 ml QSHIFT MACKENZIE Administration Sumatriptan Succinate 100 mg 12/09/20 09:26 12/12/20 11:09 Sumatriptan Succinate 100 Mg Tablet PO 100 mg DAILY PRN Administration Migraine Headache Tizanidine HCl 4 mg 12/08/20 21:00 12/12/20 08:52 Tizanidine Hcl 4 Mg Tablet PO 4 mg TID MACKENZIE Administration Zolpidem Tartrate 5 mg 12/10/20 18:05 12/11/20 21:23 Zolpidem Tartrate 5 Mg Tablet PO 5 mg BEDTIME PRN Administration Insomnia Labs CBC & Chem 7: 12/11/20 06:01 12/11/20 06:01 Assessment and Plan (1) Pancreatitis: Status: Acute Assessment and Plan: This is a 50 yo M with a ast medical history of question idiopathic pa ncreatitis, diabetes mellitus, hyperlipidemia, chronic migraines who presents to the hospital with sudden onset of abdominal pain and is diagnosed with acute pancreatitis. Acute Pancreatitis -Reports he has been worked up in the past with no specific cause identified -Does have risk factors of hypertriglyceridemia, although they are not significantly elevated -For now continue aggressive fluid resuscitation and IV pain control -pain still persists, repeat imaging showing worsening of his pancreatitis, will have repeat Gi f/u -add nutritional supplements DM -hold home oral meds -use sliding scale HypoMg -repleted IV -now normal, monitor Migraines -continue sumatriptan HyperTG -fibrates Full Code DVT pptx, Lovenox
[2020-12-12 15:41] VITALS: BP 147/77; PULSE 95; RESP 17; TEMP 36.9; O2SAT 94
[2020-12-12 16:19] LABS: Glucose, Whole Blood 101 mg/dL (60-115)
[2020-12-12] MEDS: HYDROmorphone HCl 0.5 MG/0.5 ML SYRINGE 1 MG IVPUSH ×3 (18:32→23:19)
[2020-12-12 19:28] VITALS: BP 130/79; PULSE 92; RESP 16; TEMP 36; O2SAT 94
[2020-12-12 20:20] LABS: Glucose, Whole Blood 91 mg/dL (60-115)
[2020-12-12] MEDS: Zolpidem Tartrate 5 MG TABLET PO (20:35)
[2020-12-12 23:37] VITALS: BP 122/69; PULSE 96; RESP 20; TEMP 36.3; O2SAT 96
[2020-12-13] MEDS: HYDROmorphone HCl 0.5 MG/0.5 ML SYRINGE 1 MG IVPUSH ×10 (02:15→23:27)
[2020-12-13] MEDS: 0.9 % Sodium Chloride Flush 3 ML SYRINGE IVFLUSH ×3 (02:17→15:05)
[2020-12-13 04:00] VITALS: BP 113/75; PULSE 95; RESP 20; TEMP 36.4; O2SAT 96
[2020-12-13 07:01] LABS: Hematocrit 39.5 % (42-52); Hemoglobin 12.8 g/dl (14.0-18.0); Mean Corpuscular HGB Conc 32.4 g/dl (31.0-36.0); Mean Corpuscular Hemoglobin 27.7 pg (27.0-33.0); Mean Corpuscular Volume 85.5 fL (80-98); Mean Platelet Volume 11.5 fL (9.4-12.4); Platelet Count 272 X10*3/uL (160-400); Red Blood Count 4.62 X10*6/uL (4.60-5.80); White Blood Count 9.1 X10*3/uL (4.8-10.8)
[2020-12-13 07:18] VITALS: BP 134/80; PULSE 109; RESP 18; TEMP 36.2; O2SAT 95
[2020-12-13 07:40] LABS: Folate 7.3 ng/mL (> or = 4.0); Vitamin B12 150 pg/mL (200-900)
[2020-12-13 07:50] LABS: Alanine Aminotransferase 11 U/L (0-40); Alkaline Phosphatase 63 U/L (39-117); Anion Gap 19 (12-20); Aspartate Amino Transferase 21 U/L (5-37); Bilirubin Direct 0.5 mg/dL (0.0-0.5); Bilirubin Total 0.9 mg/dL (0.0-1.0); Blood Urea Nitrogen 14 mg/dL (9-16); Calcium 9.6 mg/dL (8.4-10.2); Carbon Dioxide 25 mmol/L (22-29); Chloride 98 mmol/L (96-108); Creatinine Clr Calc Pharmacy 97.8; Estimated Glomerular Filt Rate > 60; Glucose Random 90 mg/dL (60-115); Lipase 117 U/L (8-78); Potassium 3.6 mmol/L (3.3-5.1); Sodium 138 mmol/L (135-145); Total Protein 7.7 g/dL (6.5-8.0)
[2020-12-13 08:27] LABS: Glucose, Whole Blood 87 mg/dL (60-115)
[2020-12-13] MEDS: TiZANidine HCL 4 MG TABLET PO ×3 (08:35→21:08)
[2020-12-13] MEDS: Fenofibrate 54 MG TABLET 108 MG PO (08:35)
[2020-12-13] MEDS: Omeprazole 40 MG CAPSULE.DR PO (08:35)
[2020-12-13] MEDS: FLUoxetine HCl 20 MG CAPSULE PO (08:36)
[2020-12-13] MEDS: ondansetron HCL 4 MG/2 ML VIAL IVPUSH (08:42)
--- NOTE | 2020-12-13 09:39 | PC.NURSE ---
NG tube placed into L nare. Pt tolerated well, no issues. pending placement confirmation with stat KUB/ CXR
[2020-12-13] MEDS: Clotrimazole 1 % Cream 15 GM TUBE 1 APPL TOPICAL ×2 (11:08→21:29)
[2020-12-13 11:21] VITALS: BP 131/84; PULSE 105; RESP 18; TEMP 35.8; O2SAT 92
--- NOTE | 2020-12-13 11:34 | HO.PM.IMPN ---
Subjective Subjective Date of Service: 12/13/20 Interval History: Follow up abdominal pain/pancreatitis Still having abdominal pain and nausea, NG tube placed today on recommendation of GI Review of Systems Review of Systems: Yes all other systems are reviewed and are negative Constitutional Constitutional: Denies chills and Denies fever(s) Cardiovascular Cardiovascular: Denies chest pain Respiratory Respiratory: Denies cough Physical Exam Vital Signs: Vital Signs: Last Vital Signs Temp 96.4 F L 12/13/20 11:21 Pulse 105 H 12/13/20 11:21 Resp 18 12/13/20 11:21 BP 131/84 12/13/20 11:21 Pulse Ox 92 12/13/20 11:21 Body Mass Index 30.9 Const: General: comfortable, alert and awake Nutritional Appearance: well nourished Orientation/consciousness: patient oriented x3 HENMT: Head: Yes normocephalic and Yes atraumatic Eyes: Sclerae: sclerae normal Chest: Chest palpation & inspection: normal inspection of the chest Resp: Effort & Inspection: normal respiratory effort and no respiratory distress Cardio: Rate: regular rate Rhythm: regular rhythm GI: Other: mild tenderness to palpation primarily in epigastric area Palpation (GI): Soft to palpation Neuro: General: patient oriented x3 Cranial nerves: Yes CN's II-XII intact bilaterally and Yes Bilaterally intact EOM present Objective Data Current Medications Generic Name Dose Route Start Last Admin Trade Name Freq PRN Reason Stop Dose Admin Acetaminophen 650 mg 12/08/20 13:38 Acetaminophen 325 Mg Tablet PO Q6H PRN Pain, Mild (Pain Scale 1-3) Clotrimazole 1 appl 12/13/20 11:00 12/13/20 11:08 Clotrimazole 1 % Cream 15 Gm Tube TOPICAL 1 appl BID MACKENZIE Administration Protocol Enoxaparin Sodium 40 mg 12/09/20 09:30 12/13/20 08:52 Enoxaparin Sodium 40 Mg/0.4 Ml Syringe SUBCUT Not Given Q24H MACKENZIE Fenofibrate 108 mg 12/09/20 09:00 12/13/20 08:35 Fenofibrate 54 Mg Tablet PO 108 mg DAILY MACKENZIE Administration Fluoxetine HCl 20 mg 12/09/20 09:00 12/13/20 08:36 Fluoxetine Hcl 20 Mg Capsule PO 20 mg DAILY MACKENZIE Administration Hydromorphone HCl 1 mg 12/12/20 18:04 12/13/20 11:02 Hydromorphone Hcl 0.5 Mg/0.5 Ml Syringe IVPUSH 1 mg Q2H PRN Administration Pain, Moderate (Pain Scale 4-6 Insulin Human Lispro 0 unit 12/08/20 16:30 12/13/20 08:28 Insulin Lispro 100 Unit/Ml 3 Ml Vial SUBCUT Not Given QIDACHS [facility] Protocol Omeprazole 40 mg 12/09/20 09:25 12/13/20 08:35 Omeprazole 40 Mg Capsule.Dr PO 40 mg DAILY MACKENZIE Administration Ondansetron HCl 4 mg 12/08/20 13:38 12/13/20 08:42 Ondansetron Hcl 4 Mg/2 Ml Vial IVPUSH 4 mg Q8H PRN Administration Nausea and Vomiting Pharmacy Consult 1 each 12/08/20 10:53 Consult Rx Perform Med Rec MISCELLANE ONCE PRN Consult order Sodium Chloride 3 ml 12/08/20 16:00 12/13/20 08:35 0.9 % Sodium Chloride Flush 3 Ml Syringe IVFLUSH 3 ml QSHIFT MACKENZIE Administration Sumatriptan Succinate 100 mg 12/09/20 09:26 12/12/20 11:09 Sumatriptan Succinate 100 Mg Tablet PO 100 mg DAILY PRN Administration Migraine Headache Tizanidine HCl 4 mg 12/08/20 21:00 12/13/20 08:35 Tizanidine Hcl 4 Mg Tablet PO 4 mg TID MACKENZIE Administration Zolpidem Tartrate 5 mg 12/10/20 18:05 12/12/20 20:35 Zolpidem Tartrate 5 Mg Tablet PO 5 mg BEDTIME PRN Administration Insomnia Labs CBC & Chem 7: 12/13/20 06:25 12/13/20 06:25 Assessment and Plan (1) Pancreatitis: Status: Acute Assessment and Plan: This is a 50 yo M with a past medical history of question idiopathic pancreatitis, diabetes mellitus, hyperlipidemia, chronic migraines who presents to the hospital with sudden onset of abdominal pain and is diagnosed with acute pancreatitis. Acute Pancreatitis Reports he has been worked up in the past with no specific cause identified. Does have risk factors of hypertriglyceridemia, although they are not significantly elevated -pain still persists, repeat imaging showing worsening of his pancreatitis despite improving labs, re-eval by GI - rec [place] tube placement for nutrition -continue IV pain control -nutritional supplements DM -hold home oral meds -use sliding scale HyperTG -fibrates HypoMg Replaced. Mood prozac gerd omeprazole Full Code DVT pptx, Lovenox attending: Dr. Jenkins
[2020-12-13 12:05] LABS: Glucose, Whole Blood 97 mg/dL (60-115)
[2020-12-13 14:48] VITALS: BMI 30.9
--- NOTE | 2020-12-13 14:52 | MHC.CLN ---
RE: CONSULT RECOMMEND GLUCERNA AT MAX GOAL RATE 65CC/HR WITH 240CC FREE WATER FLUSHES Q SHIFT TO PROVIDE 1560KCALS (23KCALS/KG), 65G PROTEIN (.95G/KG), 2051CC TOTAL WATER FROM FORMULA AND FLUSHES (30CC/KG) START TF AT 20CC/HR AND INCREASE BY 10CC Q 4HRS UNTIL GOAL RATE ACHIEVED MONITOR TOLERANCE, RESIDUALS AND LYTES SEE ALSO CLINICAL NUTRITION ASSESSMENT
[2020-12-13 15:46] VITALS: BP 133/72; PULSE 100; RESP 16; TEMP 36.4; O2SAT 93
[2020-12-13 16:15] LABS: Glucose, Whole Blood 84 mg/dL (60-115)
--- NOTE | 2020-12-13 17:00 | PC.NURSE ---
Started Glucerna 1.0 harpreet tube feeding at 20ml/hr at 1700. Will cont to monitor and assess. Next increase will be to 30ml/ hr in 4 hrs at 2100.
[2020-12-13 19:26] VITALS: BP 132/69; PULSE 107; RESP 16; TEMP 36.1; O2SAT 94
[2020-12-13] MEDS: SUMAtriptan succinate 100 MG TABLET PO (19:34)
[2020-12-13 20:41] LABS: Glucose, Whole Blood 101 mg/dL (60-115)
--- NOTE | 2020-12-13 23:03 | PC.NURSE ---
Increased glucerna to 30. Residual <10
[2020-12-13 23:20] VITALS: BP 105/74; PULSE 110; RESP 18; TEMP 36.6; O2SAT 93
[2020-12-14] VITALS (12 sets, daily range): BP systolic 115–143; BP diastolic 60–80; PULSE 87–114; RESP 16–20; TEMP 36–36.8; O2SAT 91–95
[2020-12-14] MEDS: HYDROmorphone HCl 0.5 MG/0.5 ML SYRINGE 1 MG IVPUSH ×10 (01:26→21:44)
[2020-12-14] MEDS: 0.9 % Sodium Chloride Flush 3 ML SYRINGE IVFLUSH ×4 (01:29→22:00)
--- NOTE | 2020-12-14 01:41 | PC.NURSE ---
Glucerna increased to 40 mls/hr pt tolarating well. no residual. placement checked with stethoscope. NG line flushed with 240 mls of sterile water.
--- NOTE | 2020-12-14 06:12 | PC.NURSE ---
Glucerna increased to 50 m/hr at 05:30
[2020-12-14 07:54] LABS: Glucose, Whole Blood 128 mg/dL (60-115)
[2020-12-14] MEDS: Enoxaparin Sodium 40 MG/0.4 ML SYRINGE SUBCUT (07:57)
[2020-12-14] MEDS: ondansetron HCL 4 MG/2 ML VIAL IVPUSH (07:58)
[2020-12-14] MEDS: Fenofibrate 54 MG TABLET 108 MG PO (07:58)
[2020-12-14] MEDS: Omeprazole 40 MG CAPSULE.DR PO (07:58)
[2020-12-14] MEDS: TiZANidine HCL 4 MG TABLET PO ×3 (07:58→21:54)
[2020-12-14] MEDS: FLUoxetine HCl 20 MG CAPSULE PO (07:58)
[2020-12-14] MEDS: Clotrimazole 1 % Cream 15 GM TUBE 1 APPL TOPICAL ×2 (07:59→22:01)
[2020-12-14 08:01] LABS: Hematocrit 43.1 % (42-52); Mean Corpuscular HGB Conc 32.5 g/dl (31.0-36.0); Mean Corpuscular Hemoglobin 27.8 pg (27.0-33.0); Mean Corpuscular Volume 85.5 fL (80-98); Mean Platelet Volume 11.6 fL (9.4-12.4); Platelet Count 370 X10*3/uL (160-400); Red Blood Count 5.04 X10*6/uL (4.60-5.80); Red Cell Distribution Width 14.2 % (11.0-16.0)
[2020-12-14 08:27] LABS: Anion Gap 17 (12-20); Blood Urea Nitrogen 23 mg/dL (9-16); Calcium 10.1 mg/dL (8.4-10.2); Carbon Dioxide 28 mmol/L (22-29); Chloride 97 mmol/L (96-108); Creatinine Clr Calc Pharmacy 78.4; Estimated Glomerular Filt Rate > 60; Glucose Random 124 mg/dL (60-115); Potassium 3.4 mmol/L (3.3-5.1); Sodium 139 mmol/L (135-145)
--- NOTE | 2020-12-14 09:23 | P.PNIM_ITS ---
Subjective Subjective Date of Service: 12/14/20 <MAILK Hall - Last Filed: 12/14/20 09:35> 12/14/20 <Oneal Villalta MD - Last Filed: 12/14/20 16:55> Interval History: Follow up for pancreatitis Seen and examined this morning Mild improvement in abdominal pain, still having discomfort primarily epigastric region Discomfort from NG tube <MALIK Hall - Last Filed: 12/14/20 09:35> Review of Systems Review of Systems: Yes all other systems are reviewed and are negative <MALIK Hall - Last Filed: 12/14/20 09:35> Constitutional Constitutional: Denies chills and Denies fever(s) <MALIK Hall - Last Filed: 12/14/20 09:35> Cardiovascular Cardiovascular: Denies chest pain <MALIK Hall - Last Filed: 12/14/20 09:35> Respiratory Respiratory: Denies cough <MALIK Hall - Last Filed: 12/14/20 09:35> Physical Exam Vital Signs: Vital Signs: Last Vital Signs Temp 97.1 F 12/14/20 07:29 Pulse 109 H 12/14/20 07:29 Resp 18 12/14/20 07:57 BP 115/60 12/14/20 07:29 Pulse Ox 94 12/14/20 07:29 Body Mass Index 30.9 <MALIK Hall - Last Filed: 12/14/20 09:35> Const: Other: uncomfortable appearing <MALIK Hall - Last Filed: 12/14/20 09:35> General: alert and awake <MALIK Hall - Last Filed: 12/14/20 09:35> Nutritional Appearance: well nourished <MALIK Hall Last Filed: 12/14/20 09:35> Orientation/consciousness: patient oriented x3 <MALIK Hall Last Filed: 12/14/20 09:35> HENMT: Head: Yes normocephalic and Yes atraumatic <MALIK Hall Last Filed: 12/14/20 09:35> Eyes: Sclerae: sclerae normal <MALIK Hall - Last Filed: 12/14/20 09:35> Chest: Chest palpation & inspection: normal inspection of the chest <MALIK Hall Last Filed: 12/14/20 09:35> Resp: Effort & Inspection: normal respiratory effort and no respiratory distress <MALIK Hall - Last Filed: 12/14/20 09:35> Auscultation: clear to auscultation bilaterally <MALIK Hall - Last Filed: 12/14/20 09:35> Cardio: Rhythm: regular rhythm <MALIK Hall - Last Filed: 12/14/20 09:35> GI: Other: NG present; +bowel sounds <MALIK Hall Last Filed: 12/14/20 09:35> Palpation (GI): Soft to palpation and Tenderness to palpation present (GI) in the epigastrum <MALIK Hall Last Filed: 12/14/20 09:35> Neuro: General: patient oriented x3 <MALIK Hall Last Filed: 12/14/20 09:35> Cranial nerves: Yes CN's II-XII intact bilaterally and Yes Bilaterally intact EOM present <MALIK Hall Last Filed: 12/14/20 09:35> Objective Data Current Medications Generic Name Dose Route Start Last Admin Trade Name Freq PRN Reason Stop Dose Admin Acetaminophen 650 mg 12/08/20 13:38 Acetaminophen 325 Mg Tablet PO Q6H PRN Pain, Mild (Pain Scale 1-3) Benzocaine 1 lozenge 12/14/20 07:55 Throat Lozenge, Medicated Lozenge MUCOUS MEM Q2H PRN Sore Throat Clotrimazole 1 appl 12/13/20 11:00 12/14/20 07:59 Clotrimazole 1 % Cream 15 Gm Tube TOPICAL 1 appl BID MACKENZIE Administration Protocol Enoxaparin Sodium 40 mg 12/09/20 09:30 12/14/20 07:57 Enoxaparin Sodium 40 Mg/0.4 Ml Syringe SUBCUT 40 mg Q24H MACKENZIE Administration Fenofibrate 108 mg 12/09/20 09:00 12/14/20 07:58 Fenofibrate 54 Mg Tablet PO 108 mg DAILY MACKENZIE Administration Fluoxetine HCl 20 mg 12/09/20 09:00 12/14/20 07:58 Fluoxetine Hcl 20 Mg Capsule PO 20 mg DAILY MACKENZIE Administration Hydromorphone HCl 1 mg 12/12/20 18:04 12/14/20 07:57 Hydromorphone Hcl 0.5 Mg/0.5 Ml Syringe IVPUSH 1 mg Q2H PRN Administration Pain, Moderate (Pain Scale 4-6 Lactated Ringer's 1,000 mls @ 100 mls/hr 12/14/20 07:00 12/14/20 08:10 Lr IVCONT Not Given .Q10H [facility] Insulin Human Lispro 0 unit 12/08/20 16:30 12/14/20 07:32 Insulin Lispro 100 Unit/Ml 3 Ml Vial SUBCUT Not Given QIDACHS [facility] Protocol Omeprazole 40 mg 12/09/20 09:25 12/14/20 07:58 Omeprazole 40 Mg Capsule.Dr PO 40 mg DAILY [facility] Administration Ondansetron HCl 4 mg 12/08/20 13:38 12/14/20 07:58 Ondansetron Hcl 4 Mg/2 Ml Vial IVPUSH 4 mg Q8H PRN Administration Nausea and Vomiting Pharmacy Consult 1 each 12/08/20 10:53 Consult Rx Perform Med Rec MISCELLANE ONCE PRN Consult order Sodium Chloride 3 ml 12/08/20 16:00 12/14/20 07:59 0.9 % Sodium Chloride Flush 3 Ml Syringe IVFLUSH 3 ml QSHIFT [facility] Administration Sumatriptan Succinate 100 mg 12/09/20 09:26 12/13/20 19:34 Sumatriptan Succinate 100 Mg Tablet PO 100 mg DAILY PRN Administration Migraine Headache Tizanidine HCl 4 mg 12/08/20 21:00 12/14/20 07:58 Tizanidine Hcl 4 Mg Tablet PO 4 mg TID [facility] Administration Zolpidem Tartrate 5 mg 12/10/20 18:05 12/12/20 20:35 Zolpidem Tartrate 5 Mg Tablet PO 5 mg BEDTIME PRN Administration Insomnia <MALIK Hall - Last Filed: 12/14/20 09:35> Labs CBC & Chem 7: : 12/14/20 07:46 12/14/20 07:46 <MALIK Hall - Last Filed: 12/14/20 09:35> Assessment and Plan (1) Pancreatitis: Status: Acute <MALIK Hall - Last Filed: 12/14/20 09:35> Assessment and Plan: This is a 50 yo M with a past medical history of question idiopathic pancreatitis, DM, hyperlipidemia, chronic migraines who presents to the hospital with sudden onset of abdominal pain and is diagnosed with acute pancreatitis. Acute Pancreatitis Reports he has been worked up in the past with no specific cause identified. Does have risk factors of hypertriglyceridemia, although they are not significantly elevated. See initial GI note from 12/08 Repeat imaging (12/12) showed worsening of his pancreatitis despite improving labs, re-eval by GI - rec [place] tube placement for nutrition -NJ placed 12/13 & feeds started -continue IV pain control -nutritional supplements DM -hold home oral meds -use sliding scale HyperTG -fibrates HypoMg Replaced. Mood prozac gerd omeprazole Full Code DVT pptx, Lovenox attending: Dr. Villalta <MALIK Hall - Last Filed: 12/14/20 09:35>
--- NOTE | 2020-12-14 10:51 | PC.NURSE ---
Pt with 0mL residual, tolerating feed well. Feed rate increased to 60mL/hr at 1000
[2020-12-14] MEDS: Throat Lozenge, Medicated LOZENGE 1 LOZENGE MUCOUS MEM ×2 (11:38→15:36)
[2020-12-14 11:46] LABS: Glucose, Whole Blood 124 mg/dL (60-115)
[2020-12-14 16:36] LABS: Glucose, Whole Blood 114 mg/dL (60-115)
--- NOTE | 2020-12-14 17:55 | PC.NURSE ---
Pt feed rate increased to 65 mls/hr at 1400. Pt with no gastric residual upon check.
--- NOTE | 2020-12-14 18:27 | PC.NURSE ---
Pt tube feed flushed with 240mL @ 1745
[2020-12-14 20:30] LABS: Glucose, Whole Blood 129 mg/dL (60-115)
[2020-12-14] MEDS: Zolpidem Tartrate 5 MG TABLET PO (21:54)
[2020-12-15] VITALS (11 sets, daily range): BP systolic 116–146; BP diastolic 71–88; PULSE 85–98; RESP 16–20; TEMP 35.8–36.8; O2SAT 92–97
[2020-12-15] MEDS: HYDROmorphone HCl 0.5 MG/0.5 ML SYRINGE 1 MG IVPUSH ×9 (00:41→22:46)
[2020-12-15] MEDS: ondansetron HCL 4 MG/2 ML VIAL IVPUSH ×2 (00:47→17:35)
--- NOTE | 2020-12-15 03:40 | PC.NURSE ---
No residual from NG tube. NG tube flushed with 240 mls of sterile water. Glucerna currently running at 65 mls/hr
[2020-12-15 07:11] LABS: Anion Gap 17 (12-20); Blood Urea Nitrogen 20 mg/dL (9-16); Calcium 9.4 mg/dL (8.4-10.2); Carbon Dioxide 28 mmol/L (22-29); Chloride 98 mmol/L (96-108); Creatinine Clr Calc Pharmacy 89.8; Estimated Glomerular Filt Rate > 60; Glucose Random 112 mg/dL (60-115); Potassium 3.6 mmol/L (3.3-5.1); Sodium 139 mmol/L (135-145)
[2020-12-15 07:34] LABS: Glucose, Whole Blood 123 mg/dL (60-115)
[2020-12-15] MEDS: TiZANidine HCL 4 MG TABLET PO ×3 (08:07→20:43)
[2020-12-15] MEDS: 0.9 % Sodium Chloride Flush 3 ML SYRINGE IVFLUSH ×3 (08:07→20:46)
[2020-12-15] MEDS: Enoxaparin Sodium 40 MG/0.4 ML SYRINGE SUBCUT (08:07)
[2020-12-15] MEDS: FLUoxetine HCl 20 MG CAPSULE PO (08:07)
[2020-12-15] MEDS: Omeprazole 40 MG CAPSULE.DR PO (08:07)
[2020-12-15] MEDS: Clotrimazole 1 % Cream 15 GM TUBE 1 APPL TOPICAL ×2 (08:08→20:47)
[2020-12-15] MEDS: Fenofibrate 54 MG TABLET 108 MG PO (08:08)
[2020-12-15] MEDS: Throat Lozenge, Medicated LOZENGE 1 LOZENGE MUCOUS MEM (08:11)
--- NOTE | 2020-12-15 09:51 | P.PNIM_ITS ---
Subjective Subjective Date of Service: 12/15/20 <MALIK Hall - Last Filed: 12/15/20 10:06> 12/15/20 <Oneal Villalta MD - Last Filed: 12/15/20 12:38> Interval History: seen and examined this morning follow up for pancreatitis reports discomfort from NG tube, throat spray and lozenges only helping a little still with epigastric pain, ?slight improvement from yesterday. <MALIK Hall - Last Filed: 12/15/20 10:06> Review of Systems Review of Systems: Yes all other systems are reviewed and are negative <MALIK Hall - Last Filed: 12/15/20 10:06> Constitutional Constitutional: Denies chills and Denies fever(s) <MALIK Hall - Last Filed: 12/15/20 10:06> Cardiovascular Cardiovascular: Denies chest pain <MALIK Hall - Last Filed: 12/15/20 10:06> Respiratory Respiratory: Denies cough <MALIK Hall - Last Filed: 12/15/20 10:06> Physical Exam Vital Signs: Vital Signs: Last Vital Signs Temp 98.0 F 12/15/20 08:00 Pulse 90 12/15/20 08:00 Resp 16 12/15/20 08:07 BP 135/73 12/15/20 08:00 Pulse Ox 93 12/15/20 08:00 Body Mass Index 30.9 <MALIK Hall - Last Filed: 12/15/20 10:06> Const: Nutritional Appearance: well nourished <MALIK Hall - Last Filed: 12/15/20 10:06> Orientation/consciousness: patient oriented x3 <MALIK Hall Last Filed: 12/15/20 10:06> HENMT: Other: NG tube present <MALIK Hall Last Filed: 12/15/20 10:06> Head: Yes normocephalic and Yes atraumatic <MALIK Hall Last Filed: 12/15/20 10:06> Eyes: Sclerae: sclerae normal <MALIK Hall Last Filed: 12/15/20 10:06> Chest: Chest palpation & inspection: normal inspection of the chest <MALIK Hall Last Filed: 12/15/20 10:06> Resp: Effort & Inspection: normal respiratory effort and no respiratory distress <MALIK Hall Last Filed: 12/15/20 10:06> Cardio: Rate: regular rate <MALIK Hall - Last Filed: 12/15/20 10:06> Rhythm: regular rhythm <MALIK Hall - Last Filed: 12/15/20 10:06> GI: Other: tenderness - epigastric area, non-distended, no rebound <MALIK Hall - Last Filed: 12/15/20 10:06> Palpation (GI): Soft to palpation <MALIK Hall - Last Filed: 12/15/20 10:06> Neuro: General: patient oriented x3 <MALIK Hall Last Filed: 12/15/20 10:06> Cranial nerves: Yes CN's II-XII intact bilaterally and Yes Bilaterally intact EOM present <MALIK Hall Last Filed: 12/15/20 10:06> Objective Data Current Medications Generic Name Dose Route Start Last Admin Trade Name Freq PRN Reason Stop Dose Admin Acetaminophen 650 mg 12/08/20 13:38 Acetaminophen 325 Mg Tablet PO Q6H PRN Pain, Mild (Pain Scale 1-3) Benzocaine 1 lozenge 12/14/20 07:55 12/15/20 08:11 Throat Lozenge, Medicated Lozenge MUCOUS MEM 1 lozenge Q2H PRN Administration Sore Throat Clotrimazole 1 appl 12/13/20 11:00 12/15/20 08:08 Clotrimazole 1 % Cream 15 Gm Tube TOPICAL 1 appl BID MACKENZIE Administration Protocol Enoxaparin Sodium 40 mg 12/09/20 09:30 12/15/20 08:07 Enoxaparin Sodium 40 Mg/0.4 Ml Syringe SUBCUT 40 mg Q24H MACKENZIE Administration Fenofibrate 108 mg 12/09/20 09:00 12/15/20 08:08 Fenofibrate 54 Mg Tablet PO 108 mg DAILY MACKENZIE Administration Fluoxetine HCl 20 mg 12/09/20 09:00 12/15/20 08:07 Fluoxetine Hcl 20 Mg Capsule PO 20 mg DAILY MACKENZIE Administration Hydromorphone HCl 1 mg 12/12/20 18:04 12/15/20 08:07 Hydromorphone Hcl 0.5 Mg/0.5 Ml Syringe IVPUSH 1 mg Q2H PRN Administration Pain, Moderate (Pain Scale 4-6 Insulin Human Lispro 0 unit 12/08/20 16:30 12/15/20 07:25 Insulin Lispro 100 Unit/Ml 3 Ml Vial SUBCUT Not Given QIDACHS [facility] Protocol Multi-Ingred Medicated Throat [place] 1 spray 12/14/20 17:19 12/14/20 21:59 Throat [place], Medicated 20 Ml Bottle MUCOUS MEM 1 spray Q2H PRN Administration Sore Throat Omeprazole 40 mg 12/09/20 09:25 12/15/20 08:07 Omeprazole 40 Mg Capsule.Dr PO 40 mg DAILY MACKENZIE Administration Ondansetron HCl 4 mg 12/08/20 13:38 12/15/20 00:47 Ondansetron Hcl 4 Mg/2 Ml Vial IVPUSH 4 mg Q8H PRN Administration Nausea and Vomiting Pharmacy Consult 1 each 12/08/20 10:53 Consult Rx Perform Med Rec MISCELLANE ONCE PRN Consult order Sodium Chloride 3 ml 12/08/20 16:00 12/15/20 08:07 0.9 % Sodium Chloride Flush 3 Ml Syringe IVFLUSH 3 ml QSHIFT [facility] Administration Sumatriptan Succinate 100 mg 12/09/20 09:26 12/13/20 19:34 Sumatriptan Succinate 100 Mg Tablet PO 100 mg DAILY PRN Administration Migraine Headache Tizanidine HCl 4 mg 12/08/20 21:00 12/15/20 08:07 Tizanidine Hcl 4 Mg Tablet PO 4 mg TID [facility] Administration Zolpidem Tartrate 5 mg 12/10/20 18:05 12/14/20 21:54 Zolpidem Tartrate 5 Mg Tablet PO 5 mg BEDTIME PRN Administration Insomnia <MALIK Hall - Last Filed: 12/15/20 10:06> Labs CBC & Chem 7: : 12/14/20 07:46 12/15/20 05:36 <MALIK Hall - Last Filed: 12/15/20 10:06> Assessment and Plan (1) Pancreatitis: Status: Acute <MALIK Hall - Last Filed: 12/15/20 10:06> Assessment and Plan: This is a 50 yo male with a past medical history of ?idiopathic pancreatitis, DM, hyperlipidemia, chronic migraines who presents to the hospital with sudden onset of abdominal pain and is diagnosed with acute pancreatitis. Acute Pancreatitis Discomfort related to NJ tube. ongoing abdominal pain Recurrent pancreatitis, previous workup with no specific cause identified. Does have risk factors of hypertriglyceridemia, although not significantly elevated. See initial GI note from 12/08 seen by surgery 12/09 can consider lap jethro after resolution of pancreatitis - see surgical note Repeat imaging (12/12) showed worsening of his pancreatitis despite improving labs, re-eval by GI - rec NJ tube placement for nutrition NJ placed 12/13 & feeds started, tolerating feeds. -discussed plan with GI, recommend to change to Dobhoff/silicone feeding tube Wednesday and repeat CT scan Wednesday -continue IV pain control DM -hold home oral meds -use sliding scale HyperTG -fibrates Mood prozac gerd omeprazole Full Code DVT pptx, Lovenox attending: Dr. Villalta <MALIK Hall - Last Filed: 12/15/20 10:06> Pt seen and discussed with PA. Pt is having discomfort from Post pyloric tube, GI will is recommending change to Silicone soft tube as maybe more comfortable. Othwerise I agree with above exam, assesment and plan by PA <Oneal Villalta MD - Last Filed: 12/15/20 12:38>
[2020-12-15 12:06] LABS: Glucose, Whole Blood 113 mg/dL (60-115)
[2020-12-15 16:28] LABS: Glucose, Whole Blood 116 mg/dL (60-115)
[2020-12-15] MEDS: SUMAtriptan succinate 100 MG TABLET PO (17:35)
[2020-12-15] MEDS: Docusate Sodium 100 MG CAPSULE 200 MG PO (19:39)
[2020-12-15 20:29] LABS: Glucose, Whole Blood 114 mg/dL (60-115)
[2020-12-15] MEDS: Zolpidem Tartrate 5 MG TABLET PO (23:08)
[2020-12-16] MEDS: HYDROmorphone HCl 0.5 MG/0.5 ML SYRINGE 1 MG IVPUSH ×9 (02:27→22:34)
[2020-12-16 04:00] VITALS: BP 115/74; PULSE 87; RESP 18; TEMP 36.3; O2SAT 95
[2020-12-16 07:11] VITALS: BP 139/72; PULSE 86; RESP 18; TEMP 35.7; O2SAT 93
[2020-12-16 08:12] LABS: Glucose, Whole Blood 113 mg/dL (60-115)
[2020-12-16] MEDS: 0.9 % Sodium Chloride Flush 3 ML SYRINGE IVFLUSH ×2 (08:24→14:51)
[2020-12-16] MEDS: FLUoxetine HCl 20 MG CAPSULE PO (08:27)
[2020-12-16] MEDS: Fenofibrate 54 MG TABLET 108 MG PO (08:27)
[2020-12-16] MEDS: Omeprazole 40 MG CAPSULE.DR PO (08:27)
[2020-12-16] MEDS: TiZANidine HCL 4 MG TABLET PO ×3 (08:27→20:21)
[2020-12-16] MEDS: Enoxaparin Sodium 40 MG/0.4 ML SYRINGE SUBCUT (08:27)
[2020-12-16] MEDS: Clotrimazole 1 % Cream 15 GM TUBE 1 APPL TOPICAL ×2 (08:42→22:37)
[2020-12-16] MEDS: ondansetron HCL 4 MG/2 ML VIAL IVPUSH (08:42)
--- NOTE | 2020-12-16 10:52 | P.PNIM_ITS ---
Subjective Subjective Date of Service: 12/16/20 <Surekha Sutherland NP - Last Filed: 12/16/20 16:03> 12/16/20 <Yovany Jenkins MD - Last Filed: 12/16/20 16:33> Interval History: Follow up pancreatitis. Pain to NJ tube, denies abdominal pain, wants to try something by mouth <Surekha Sutherland NP - Last Filed: 12/16/20 16:03> Physical Exam Vital Signs: Vital Signs: Last Vital Signs Temp 96.2 F L 12/16/20 07:11 Pulse 86 12/16/20 07:11 Resp 18 12/16/20 07:11 BP 139/72 12/16/20 07:11 Pulse Ox 93 12/16/20 07:11 Body Mass Index 30.9 <Surekha Sutherland NP - Last Filed: 12/16/20 16:03> Appearing in no acute distress lung sounds are clear to auscultation heart regular rate rhythm, clear S1, S2 positive bowel sounds, abdomen is soft, nontender neuro patient is alert x3, no focal deficits NJ tube in place, not tolerting well. <Surekha Sutherland NP - Last Filed: 12/16/20 16:03> Objective Data Current Medications Generic Name Dose Route Start Last Admin Trade Name Freq PRN Reason Stop Dose Admin Acetaminophen 650 mg 12/08/20 13:38 Acetaminophen 325 Mg Tablet PO Q6H PRN Pain, Mild (Pain Scale 1-3) Benzocaine 1 lozenge 12/14/20 07:55 12/15/20 08:11 Throat Lozenge, Medicated Lozenge MUCOUS MEM 1 lozenge Q2H PRN Administration Sore Throat Clotrimazole 1 appl 12/13/20 11:00 12/16/20 08:42 Clotrimazole 1 % Cream 15 Gm Tube TOPICAL 1 appl BID MACKENZIE Administration Protocol Enoxaparin Sodium 40 mg 12/09/20 09:30 12/16/20 08:27 Enoxaparin Sodium 40 Mg/0.4 Ml Syringe SUBCUT 40 mg Q24H MACKENZIE Administration Fenofibrate 108 mg 12/09/20 09:00 12/16/20 08:27 Fenofibrate 54 Mg Tablet PO 108 mg DAILY MACKENZIE Administration Fluoxetine HCl 20 mg 12/09/20 09:00 12/16/20 08:27 Fluoxetine Hcl 20 Mg Capsule PO 20 mg DAILY MACKENZIE Administration Hydromorphone HCl 1 mg 12/12/20 18:04 12/16/20 10:41 Hydromorphone Hcl 0.5 Mg/0.5 Ml Syringe IVPUSH 1 mg Q2H PRN Administration Pain, Moderate (Pain Scale 4-6 Insulin Human Lispro 0 unit 12/08/20 16:30 12/16/20 07:49 Insulin Lispro 100 Unit/Ml 3 Ml Vial SUBCUT Not Given QIDACHS [facility] Protocol Multi-Ingred Medicated Throat [place] 1 spray 12/14/20 17:19 12/15/20 12:55 Throat [place], Medicated 20 Ml Bottle MUCOUS MEM 1 spray Q2H PRN Administration Sore Throat Omeprazole 40 mg 12/09/20 09:25 12/16/20 08:27 Omeprazole 40 Mg Capsule.Dr PO 40 mg DAILY MACKENZIE Administration Ondansetron HCl 4 mg 12/08/20 13:38 12/16/20 08:42 Ondansetron Hcl 4 Mg/2 Ml Vial IVPUSH 4 mg Q8H PRN Administration Nausea and Vomiting Pharmacy Consult 1 each 12/08/20 10:53 Consult Rx Perform Med Rec MISCELLANE ONCE PRN Consult order Sodium Chloride 3 ml 12/08/20 16:00 12/16/20 08:24 0.9 % Sodium Chloride Flush 3 Ml Syringe IVFLUSH 3 ml QSHIFT [facility] Administration Sumatriptan Succinate 100 mg 12/09/20 09:26 12/15/20 17:35 Sumatriptan Succinate 100 Mg Tablet PO 100 mg DAILY PRN Administration Migraine Headache Tizanidine HCl 4 mg 12/08/20 21:00 12/16/20 08:27 Tizanidine Hcl 4 Mg Tablet PO 4 mg TID [facility] Administration Zolpidem Tartrate 5 mg 12/15/20 22:53 12/15/20 23:08 Zolpidem Tartrate 5 Mg Tablet PO 5 mg BEDTIME PRN Administration Insomnia <Surekha Sutherland NP - Last Filed: 12/16/20 16:03> Labs CBC & Chem 7: : 12/14/20 07:46 12/15/20 05:36 <Surekha Sutherland NP - Last Filed: 12/16/20 16:03> Assessment and Plan (1) Pancreatitis: Status: Acute <Surekha Sutherland NP - Last Filed: 12/16/20 16:03> Assessment and Plan: This is a 50 yo male with a past medical history of ?idiopathic pancreatitis, DM, hyperlipidemia, chronic migraines who presents to the hospital with sudden onset of abdominal pain and is diagnosed with acute pancreatitis. Acute Pancreatitis. Discomfort related to NJ tube, Patient requested removal. Recurrent pancreatitis, previous workup with no specific cause identified. Risk factors of hypertriglyceridemia, although not significantly elevated seen by surgery 12/09 can consider lap jethro after resolution of pancreatitis Repeat imaging (12/12) showed worsening of his pancreatitis despite improving labs, re-eval by GI-rec NJ tube placement for nutrition NJ placed 12/13 & feeds started, tolerating feeds. -Patient requested removal of NGT due to pain and discomfort, no abdominal pain, he wants to try something by mouth -continue IV pain control -repeat CT tomorrow Diabetes -hold home oral meds -use sliding scale Hypertriglycerides -fibrates Mood -prozac GERD -omeprazole DVT pptx, Lovenox Attending: Dr. Jenkins <Surekha Sutherland NP - Last Filed: 12/16/20 16:03> Attending Attestation: Patient seen and examined independently and I was present during [place]egas portion of E/M service. Agree with Rafaela Sutherland NP's history, physical, assessment, and plan. Seen and examined this AM. Reports improvement in his abdominal pain. Major complaint is of irritation with the NG tube in place. Requesting removal has he reports that the constant irriation is preventing him from sleeping. Trial of lozenges/throat spray have not helped. Requesting a trial of PO intake. will remove NG tube and start clears. follow GI recs (see note from Dr. Valdez today). If tolearating clears and repeat CT shows improvement, will plan to advance diet and add pancreatic enzymes. <Yovany Jenkins MD - Last Filed: 12/16/20 16:33>
[2020-12-16 11:26] VITALS: BP 131/80; PULSE 84; RESP 18; TEMP 36.3; O2SAT 93
--- NOTE | 2020-12-16 11:34 | MHC.HEMONC ---
NG tube removed at 11:30. Pt tolerated well. Tube intact. No complications. Will cont to monitor and assess
[2020-12-16 12:19] LABS: Glucose, Whole Blood 115 mg/dL (60-115)
--- NOTE | 2020-12-16 13:40 | MHC.CM.PN ---
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 DISCHARGE PLQMN MOLECULAR SPECTROSCOPIST TO CONTINUE TO FOLLOW FOR DISCHARGE NEEDS. ANTICIPATE D/C HOME WITH NO SERVCIES PCP DR PRINCE CYR TRANSPORTATION HIS GIRLFRIEND
--- NOTE | 2020-12-16 15:00 | MHC.CLN ---
F/U PT WAS RECEIVING GLUCERNA AT MAX GOAL RATE 65CC/HR WITH 240CC FREE WATER FLUSHES Q SHIFT TO PROVIDE 1560KCALS (23KCALS/KG), 65G PROTEIN (.95G/KG), 2051CC TOTAL WATER FROM FORMULA AND FLUSHES (30CC/KG) NG TUBE REMOVED 12/16/20 DIET ADVANCED TO C/L FOLLOWING
[2020-12-16 15:21] VITALS: BP 131/73; PULSE 86; RESP 20; TEMP 36.9; O2SAT 92
--- NOTE | 2020-12-16 16:17 | PM.EVENT ---
Event Note Date of Service: 12/16/20 Event Note: Pt notes partial improvement in abdominal pain to 8/10 today. Has been passing gas and denies having a bowel movement since admission. NJ tube was placed on 12/13 due to worsening pancreatitis and removed today at patient's request due to throat irritation. IMAGING STUDIES: 12/12/[address] SCAN SHOWED: 1. Increased peripancreatic inflammatory changes central mesentery. Normal pancreatic enhancement. No necrosis or pancreatic ductal distention. 2. Sludge in gallbladder. No wall thickening or biliary ductal dilatation. 3. Increased bibasilar subsegmental atelectasis. 4. No bowel obstruction or ascites. IMPRESSION AND RECOMMENDATIONS: 50 YM with DM, hyperlipidemia, GERD, depression, HAs, chronic back pain admitted with nausea, abdominal pain and elevated lipase due to acute on chronic pancreatitis. Abdominal CT scan showed an ill-defined fluid collection is present along the anterior aspect of the pancreas extending into the small bowel mesentery with normal enhancement and no necrosis. A few small scattered calcifications are present within the head of the pancreas without dilatation of the pancreatic duct. Patient has a history of recurrent episodes of pancreatitis for the past 12-15 years. Pancreatitis was attributed to hypertriglyceridemia (reported to have triglyceride levels of >1000) Triglycerides were 100 on current admission. Presence of calcifications are suggestive of underlying chronic pancreatitis. Pt was seen by Dr Bird from surgery and Lap Kaycee is planned after resolution of current episode of pancreatitis. RECOMMENDATIONS: 1. Continue IV pain medications and resume liquid diet. 2. Repeat abdominal CT scan in the am and if CT scan showed improvement in peripancreatic inflammation, his diet can be advanced slowly. 3. Start on lowest dose of Creon once he is able to tolerate a full liquid diet. 4. Stool for pancreatic elastase to confirm presence of chronic pancreatitis
[2020-12-16 16:35] LABS: Glucose, Whole Blood 89 mg/dL (60-115)
[2020-12-16] MEDS: SUMAtriptan succinate 100 MG TABLET PO (17:52)
[2020-12-16 19:06] VITALS: BP 103/72; PULSE 85; RESP 20; TEMP 36.1; O2SAT 96
[2020-12-16 20:29] LABS: Glucose, Whole Blood 105 mg/dL (60-115)
[2020-12-16] MEDS: Zolpidem Tartrate 5 MG TABLET PO (22:34)
[2020-12-16 23:44] VITALS: BP 116/69; PULSE 73; RESP 20; TEMP 36.1; O2SAT 94
[2020-12-17] MEDS: HYDROmorphone HCl 0.5 MG/0.5 ML SYRINGE 1 MG IVPUSH ×5 (01:26→14:44)
[2020-12-17] MEDS: 0.9 % Sodium Chloride Flush 3 ML SYRINGE IVFLUSH ×4 (01:29→22:50)
[2020-12-17 04:00] VITALS: BP 123/78; PULSE 87; RESP 20; TEMP 36.4; O2SAT 95
[2020-12-17 06:29] LABS: MANUAL DIFF FLAG NO
[2020-12-17 06:50] LABS: Basophils Absolute Auto 0.1 X10*3/uL (0.0-0.2); Basophils Percent Auto 0.7 % (0-2); Eosinophils Absolute Auto 0.2 X10*3/uL (0.0-0.4); Hemoglobin 12.6 g/dl (14.0-18.0); Imm Gran Pct Auto 2.5 % (0.0-0.4); Lymphocytes Absolute Auto 2.2 X10*3/uL (1.2-4.9); Lymphocytes Percent Auto 27.2 % (20-40); Mean Corpuscular HGB Conc 31.5 g/dl (31.0-36.0); Mean Corpuscular Hemoglobin 27.3 pg (27.0-33.0); Mean Corpuscular Volume 86.6 fL (80-98); Mean Platelet Volume 11.6 fL (9.4-12.4); Monocytes Absolute Auto 0.8 X10*3/uL (0.1-1.2); Monocytes Percent Auto 9.9 % (2-11); Neutrophils Absolute Auto 4.6 X10*3/uL (2.0-8.3); Neutrophils Percent Auto 56.7 % (45-73); Platelet Count 315 X10*3/uL (160-400); Red Blood Count 4.62 X10*6/uL (4.60-5.80); White Blood Count 8.1 X10*3/uL (4.8-10.8)
[2020-12-17 07:19] VITALS: BP 129/83; PULSE 94; RESP 18; TEMP 35.9; O2SAT 95
[2020-12-17 07:21] LABS: Anion Gap 16 (12-20); Blood Urea Nitrogen 14 mg/dL (9-16); Calcium 9.7 mg/dL (8.4-10.2); Carbon Dioxide 28 mmol/L (22-29); Chloride 98 mmol/L (96-108); Creatinine Clr Calc Pharmacy 97.8; Estimated Glomerular Filt Rate > 60; Glucose Random 97 mg/dL (60-115); Potassium 3.8 mmol/L (3.3-5.1); Sodium 138 mmol/L (135-145)
[2020-12-17 08:07] LABS: Glucose, Whole Blood 95 mg/dL (60-115)
[2020-12-17] MEDS: ondansetron HCL 4 MG/2 ML VIAL IVPUSH (09:09)
[2020-12-17] MEDS: Fenofibrate 54 MG TABLET 108 MG PO (09:50)
[2020-12-17] MEDS: TiZANidine HCL 4 MG TABLET PO ×3 (09:50→20:46)
[2020-12-17] MEDS: FLUoxetine HCl 20 MG CAPSULE PO (09:50)
[2020-12-17] MEDS: Omeprazole 40 MG CAPSULE.DR PO (09:50)
[2020-12-17] MEDS: Enoxaparin Sodium 40 MG/0.4 ML SYRINGE SUBCUT (09:51)
[2020-12-17] MEDS: Clotrimazole 1 % Cream 15 GM TUBE 1 APPL TOPICAL ×2 (10:18→20:46)
--- NOTE | 2020-12-17 11:15 | P.PNIM_ITS ---
Subjective Subjective Date of Service: 12/17/20 <Surekha Sutherland NP - Last Filed: 12/17/20 15:01> 12/17/20 <Yovany Jenkins MD - Last Filed: 12/17/20 15:29> Interval History: Follow pancreatitis. Still with some nausea but feeling better and able to take clear diet. Abdominal pain / <Surekha Sutherland NP - Last Filed: 12/17/20 15:01> Physical Exam Vital Signs: Vital Signs: Last Vital Signs Temp 96.6 F L 12/17/20 07:19 Pulse 94 12/17/20 07:19 Resp 18 12/17/20 07:19 BP 129/83 12/17/20 07:19 Pulse Ox 95 12/17/20 07:19 Body Mass Index 30.9 <Surekha Sutherland NP - Last Filed: 12/17/20 15:01> Appearing in no acute distress lung sounds are clear to auscultation heart regular rate rhythm, clear S1, S2 positive bowel sounds, abdomen tender neuro patient is alert x3, no focal deficits <Surekha Sutherland NP - Last F iled: 12/17/20 15:01> Objective Data Current Medications Generic Name Dose Route Start Last Admin Trade Name Freq PRN Reason Stop Dose Admin Acetaminophen 650 mg 12/08/20 13:38 Acetaminophen 325 Mg Tablet PO Q6H PRN Pain, Mild (Pain Scale 1-3) Benzocaine 1 lozenge 12/14/20 07:55 12/15/20 08:11 Throat Lozenge, Medicated Lozenge MUCOUS MEM 1 lozenge Q2H PRN Administration Sore Throat Clotrimazole 1 appl 12/13/20 11:00 12/17/20 10:18 Clotrimazole 1 % Cream 15 Gm Tube TOPICAL 1 appl BID MACKENZIE Administration Protocol Enoxaparin Sodium 40 mg 12/09/20 09:30 12/17/20 09:51 Enoxaparin Sodium 40 Mg/0.4 Ml Syringe SUBCUT 40 mg Q24H MACKENZIE Administration Fenofibrate 108 mg 12/09/20 09:00 12/17/20 09:50 Fenofibrate 54 Mg Tablet PO 108 mg DAILY MACKENZIE Administration Fluoxetine HCl 20 mg 12/09/20 09:00 12/17/20 09:50 Fluoxetine Hcl 20 Mg Capsule PO 20 mg DAILY MACKENZIE Administration Hydromorphone HCl 1 mg 12/12/20 18:04 12/17/20 08:15 Hydromorphone Hcl 0.5 Mg/0.5 Ml Syringe IVPUSH 1 mg Q2H PRN Administration Pain, Moderate (Pain Scale 4-6 Insulin Human Lispro 0 unit 12/08/20 16:30 12/17/20 08:10 Insulin Lispro 100 Unit/Ml 3 Ml Vial SUBCUT Not Given QIDACHS [facility] Protocol Multi-Ingred Medicated Throat [place] 1 spray 12/14/20 17:19 12/15/20 12:55 Throat [place], Medicated 20 Ml Bottle MUCOUS MEM 1 spray Q2H PRN Administration Sore Throat Omeprazole 40 mg 12/09/20 09:25 12/17/20 09:50 Omeprazole 40 Mg Capsule.Dr PO 40 mg DAILY MACKENZIE Administration Ondansetron HCl 4 mg 12/08/20 13:38 12/17/20 09:09 Ondansetron Hcl 4 Mg/2 Ml Vial IVPUSH 4 mg Q8H PRN Administration Nausea and Vomiting Pharmacy Consult 1 each 12/08/20 10:53 Consult Rx Perform Med Rec MISCELLANE ONCE PRN Consult order Sodium Chloride 3 ml 12/08/20 16:00 12/17/20 09:09 0.9 % Sodium Chloride Flush 3 Ml Syringe IVFLUSH 3 ml QSHIFT [facility] Administration Sumatriptan Succinate 100 mg 12/09/20 09:26 12/16/20 17:52 Sumatriptan Succinate 100 Mg Tablet PO 100 mg DAILY PRN Administration Migraine Headache Tizanidine HCl 4 mg 12/08/20 21:00 12/17/20 09:50 Tizanidine Hcl 4 Mg Tablet PO 4 mg TID [facility] Administration Zolpidem Tartrate 5 mg 12/15/20 22:53 12/16/20 22:34 Zolpidem Tartrate 5 Mg Tablet PO 5 mg BEDTIME PRN Administration Insomnia <Surekha Sutherland NP - Last Filed: 12/17/20 15:01> Labs CBC & Chem 7: : 12/17/20 05:46 12/17/20 05:46 <Surekha Sutherland NP - Last Filed: 12/17/20 15:01> Assessment and Plan (1) Pancreatitis: Status: Acute <Surekha Sutherland NP - Last Filed: 12/17/20 15:01> Assessment and Plan: This is a 50 yo male with a past medical history of ?idiopathic pancreatitis, DM, hyperlipidemia, chronic migraines who presents to the hospital with sudden onset of abdominal pain and is diagnosed with acute pancreatitis. Acute Pancreatitis. Recurrent pancreatitis, previous workup with no specific cause identified. Risk factors of hypertriglyceridemia, although not significantly elevated -Repeat imaging (12/12) showed worsening of his pancreatitis despite improving labs, re-eval by GI-rec NJ tube placement for nutrition. NJ placed 12/13 & feeds started, tolerating feeds. -NJ tube discontinued yesterday by patient request due to severe throat discomfort, tolerating clear liquid diet with 7/10 abdominal pain. -continue IV pain control -Abdominal CT showed persistent but improved pancreatitis. -start creon -Follow up with general surgery as outpatient for consideration of cholecystectomy Diabetes -hold home oral meds -use sliding scale Hypertriglycerides -fibrates Mood -prozac GERD -omeprazole DVT pptx, Lovenox DISPO: Possible discharge tomorrow if improvement seen in CT scan and patient is tolerating advancing diet Attending: Dr. Jenkins <Surekha Sutherland NP - Last Filed: 12/17/20 15:01> Seen and examined Abdominal pain slowly improving. CT scan showing improvement of pancreatitis as well. Will advance to full liquids and give pancreatic enzymes per GI recs. Will start to wean IV narcotics. Hopefully he can tolerate diet and be discharged home in the next 1-2 days. <Yovany Jenkins MD - Last Filed: 12/17/20 15:29>
[2020-12-17 11:46] VITALS: BP 124/64; PULSE 86; RESP 18; TEMP 36.1; O2SAT 97
[2020-12-17] MEDS: iohexoL 350 MG/ML 100 ML INFUS..BTL IV (12:00)
[2020-12-17 12:06] LABS: Glucose, Whole Blood 77 mg/dL (60-115)
[2020-12-17 15:23] VITALS: BP 108/73; PULSE 75; RESP 20; TEMP 36.2; O2SAT 96
[2020-12-17 16:18] LABS: Glucose, Whole Blood 99 mg/dL (60-115)
[2020-12-17] MEDS: SUMAtriptan succinate 100 MG TABLET PO (18:47)
[2020-12-17] MEDS: HYDROmorphone HCl 1 MG/ML SYRINGE IVPUSH ×2 (18:47→22:50)
[2020-12-17 19:10] VITALS: BP 115/68; PULSE 76; RESP 20; TEMP 36.1; O2SAT 94
[2020-12-17 20:40] LABS: Glucose, Whole Blood 96 mg/dL (60-115)
[2020-12-17] MEDS: Zolpidem Tartrate 5 MG TABLET PO (22:50)
[2020-12-17 23:33] VITALS: BP 103/57; PULSE 72; RESP 20; TEMP 36.3; O2SAT 94
[2020-12-18 03:58] VITALS: BP 131/71; PULSE 77; RESP 20; TEMP 36.7; O2SAT 96
[2020-12-18] MEDS: HYDROmorphone HCl 1 MG/ML SYRINGE IVPUSH (04:06)
[2020-12-18] MEDS: 0.9 % Sodium Chloride Flush 3 ML SYRINGE IVFLUSH (07:25)
[2020-12-18 07:29] LABS: Glucose, Whole Blood 91 mg/dL (60-115)
[2020-12-18 07:42] VITALS: BP 142/77; PULSE 89; RESP 18; TEMP 36.7; O2SAT 95
[2020-12-18] MEDS: HYDROmorphone HCl 2 MG TABLET PO ×2 (07:53→12:58)
[2020-12-18] MEDS: Lipase/Prot/Amylase 24/76/120K 1 CAP CAPSULE.DR PO ×2 (09:24→11:34)
[2020-12-18] MEDS: FLUoxetine HCl 20 MG CAPSULE PO (09:25)
[2020-12-18] MEDS: Omeprazole 40 MG CAPSULE.DR PO (09:25)
[2020-12-18] MEDS: TiZANidine HCL 4 MG TABLET PO ×2 (09:25→14:45)
[2020-12-18] MEDS: Fenofibrate 54 MG TABLET 108 MG PO (09:26)
[2020-12-18] MEDS: Enoxaparin Sodium 40 MG/0.4 ML SYRINGE SUBCUT (09:26)
[2020-12-18] MEDS: Clotrimazole 1 % Cream 15 GM TUBE 1 APPL TOPICAL (09:33)
--- NOTE | 2020-12-18 11:13 | PM.DS ---
DS: Providers Provider Date of Service: 12/18/20 Date of admission: 12/08/20 13:38 Primary care physician: Nonstaff Physician Consults: 12/08/20 13:38 Consult to Gastroenterology Routine Consulting Provider: Onel Valdez Reason for consultation: idiopathic pancreatitis Has provider been notified: No 12/09/20 13:39 Consult to General Surgery Routine Consulting Provider: Kayley Brid Reason for consultation: recurrent pancreatitis, to evaluate for CCY DS: Diagnosis Discharge Diagnosis (1) Pancreatitis: Status: Acute DS: Medications Discharge Medications Home Medications: Home Medications Medication Instructions Recorded Confirmed fenofibrate 2 tab PO DAILY 12/08/20 12/08/20 fluoxetine 1 cap PO DAILY 12/08/20 12/08/20 galcanezumab-gnlm [Emgality Pen] 1 mg SUBCUT Q4W 12/08/20 12/08/20 nortriptyline 25 cap PO BEDTIME 12/08/20 12/08/20 omeprazole 1 cap PO DAILY 12/08/20 12/08/20 ondansetron 1 tab PO Q8H PRN 12/08/20 12/08/20 oxycodone 1 tab PO QID PRN 12/08/20 12/08/20 pioglitazone 1 tab PO BID 12/08/20 12/08/20 rosuvastatin 1 tab PO DAILY 12/08/20 12/08/20 sumatriptan succinate 100 mg PO DAILY PRN 12/08/20 12/09/20 tizanidine 1 tab PO TID 12/08/20 12/08/20 zolpidem 10 tab PO BEDTIME PRN 12/08/20 12/08/20 DS: Summary Hospital Course Hospital Course: HP as per admitting provider 50-year-old man presented to the ER with complaints of worsening abdominal pain that started this morning. He reports it as more left-sided and epigastric abdominal pain radiating to his back. He reported some nausea with no vomiting or diarrhea. Denies fever, chills, recent travel, or improperly cooked foods. He does have a history of pancreatitis in the past, at least 3 episodes. He has no history of alcohol abuse. He is followed currently by Gastroenterology in [place] and has been referred to [place] as well for consideration of etiology of pancreatitis. He did report that he has hypertriglyceridemia; however, triglycerides noted were as high as [address] today showed findings consistent with pancreatitis, acute pancreatic fluid collection with no walled-off collection or necrosis with mild hepatic steatosis. Lipase was noted to be significantly elevated at 1226, magnesium 1.4, COVID-19, negative. In the ER, he was given IV fluids, Benadryl, morphine, Reglan, Dilaudid, IV magnesium, Zofran. At this time his vital signs are stable. Blood pressure is mildly elevated. We will admit the patient for acute on chronic pancreatitis . Pancreatitis. Patient has had several bouts of pancreatitis over the last few years. He currently sees a director radiation oncology [place] and had been referred to someone in [place] to try to explain the etiology of his pancreatitis. Does have a history of hypertriglyceridemia but in the 300s. Initially was treated with aggressive IV fluid hydration, NPO and IV pain medication. During hospitalization he had a knees 0 jejunum tube placed due to poor nutrition and inability to eat without pain. He had displaced for approximately 3 days. He had increased pain and discomfort to his throat the tube was subsequently hold and the patient seemed to do much better. His diet was advanced from clear to full and he did well. Repeat abdominal CAT scan showed some improvement in pancreatitis. His diet was advanced to regular and he tolerated that well without any pain, nausea or vomiting. He was started on low-dose Creon. He will follow up with Gastroenterology outpatient and may need cholecystectomy at some point. Attending: Dr. Jenkins Time Spent with Patient Time attestation: Total time spent providing and/or coordinating discharge services: Discharge coordination time: Greater than 30 minutes Physical Exam Vital Signs: Vital Signs: Last Vital Signs Temp 98.0 F 12/18/20 07:42 Pulse 89 12/18/20 07:42 Resp 18 12/18/20 07:42 BP 142/77 H 12/18/20 07:42 Pulse Ox 95 12/18/20 07:42 Body Mass Index 30.9 Appearing in no acute distress head is normocephalic atraumatic eyes pupils are PERRLA sclera is anicteric mouth throat mucous membranes are intact and moist neck is supple no lymphadenopathy, no JVD noted lung sounds are clear to auscultation heart regular rate rhythm, clear S1, S2 positive bowel sounds, abdomen is soft, nontender neuro patient is alert x3, no focal deficits DS: Data Data Completed and Pending Labs on day of discharge: Laboratory Results - last 24 hr 12/17/20 12/17/20 12/17/20 11:45 16:00 20:12 POC Glucose 77 99 96 12/18/20 07:04 POC Glucose 91 Discharge Plan Discharge Anticipated Discharge Date/Time: 12/18/20 11:06 Patient Disposition: Home, Self-Care Discharge Diagnosis: Pancreatitis Referrals: Physician,Yasminetaff [Primary Care Provider] - 1 Week Onel Valdez MD [Physician] - 1 Week Discharge Medications: New Creon 12,000-38,000 -60,000 unit capsule,delayed release(DR/EC) 1 cap PO TID Qty: 90 RF: 0 Continued pioglitazone 15 mg tablet 1 tab PO BID RF: 0 tizanidine 4 mg tablet 1 tab PO TID RF: 0 sumatriptan succinate 100 mg tablet 100 mg PO DAILY PRN (Reason: Migraine Headache) RF: 0 omeprazole 40 mg capsule,delayed release(DR/EC) 1 cap PO DAILY RF: 0 nortriptyline 25 mg capsule 25 cap PO BEDTIME RF: 0 zolpidem 10 mg tablet 10 tab PO BEDTIME PRN (Reason: Insomnia) RF: 0 fluoxetine 20 mg capsule 1 cap PO DAILY RF: 0 rosuvastatin 40 mg tablet 1 tab PO DAILY RF: 0 oxycodone 10 mg tablet 1 tab PO QID PRN (Reason: Pain) RF: 0 fenofibrate 54 mg tablet 2 tab PO DAILY RF: 0 Emgality Pen 120 mg/mL pen injector 1 mg subcut Q4W RF: 0 ondansetron 4 mg tablet,disintegrating 1 tab PO Q8H PRN (Reason: Nausea And Vomiting) RF: 0 Discharge Orders: Discharge Order (Routine); Ordered 12/18/20 Ordered By: Surekha Sutherland Diet: advance to usual diet Activity on Discharge: As tolerated Stand Alone Forms: Patient Portal Discharge page Care Plan Goals: Resolution of abdominal pain related to pancreatitis Health Concerns: Pancreatitis Diabetes mellitus GERD Chronic pain Plan of Treatment: Follow-up with [facility] Gastroenterology Dr. Valdez [phone] Assessment: See discharge summary
[2020-12-18 11:30] LABS: Glucose, Whole Blood 89 mg/dL (60-115)
[2020-12-18 11:53] VITALS: BP 129/80; PULSE 87; RESP 17; TEMP 36.1; O2SAT 97
--- NOTE | 2020-12-18 13:32 | MHC.CLN ---
F/U PO INTAKE 50% DIET ADVANCED TO 2GM NA RECOMMEND ADDING 1500DM TO CURRENT DIET R/T DM FOLLOWING
[2020-12-18] MEDS: SUMAtriptan succinate 100 MG TABLET PO (14:47)
--- NOTE | 2020-12-18 14:58 | MHC.CM.PN ---
IMM 12/18/20, PT DISCHARGING TODAY HOME SELF-CARE W/INSTRUCTIONS TO FOLLOW-UP W/GI, GIRLFRIEND TO TRANSPORT.
[2020-12-18 15:19] VITALS: BP 135/81; PULSE 87; RESP 16; TEMP 36.1; O2SAT 97
== END 2020-12-18 15:42 | disposition home or self-care (01) | DRG 439 ==
LOC: HO.ED 12:04 → HO.S3 14:05
PROVIDERS: Hospitalist; Internal Medicine; Internal Medicine Gastroenterology; Nurse Practitioner Acute Care; Physician Assistant Medical; Admitting Provider Family Medicine; Emergency Provider Emergency Medicine; Visit Provider Family Medicine
DX: K85.90 Acute pancreatitis without necrosis or infection, unspecified (principal); J98.11 Atelectasis; E11.9 Type 2 diabetes mellitus without complications; G43.909 Migraine, unspecified, not intractable, without status migrainosus; E83.42 Hypomagnesemia; K21.9 Gastro-esophageal reflux disease without esophagitis; E78.5 Hyperlipidemia, unspecified; F32.9 Major depressive disorder, single episode, unspecified; G89.29 Other chronic pain; Z20.822 Contact with and (suspected) exposure to COVID-19; Z88.6 Allergy status to analgesic agent; Z79.891 Long term (current) use of opiate analgesic; Z79.899 Other long term (current) drug therapy
CPT/HCPCS: 36415; 71045; 74018; 74160; 74177; 76000; 80048; 80076; 80320; 82607; 82746; 82947; 82977; 83615; 83690; 83735; 84478; 84484; 85025; 85027; 85610; 85730; 87389; 87635; 93005; 96374; 96375; 99284; 99291; J1170; J1200; J1650; J2270; J2405; J2765; J3475; Q9967

== ENCOUNTER → 2021-01-13 13:20 | Outpatient (BNVA) | payer MEDICARE, MEDICAID, SELFPAY | PROVIDERS: Visit Provider Internal Medicine Gastroenterology | CPT/HCPCS: Q3014 ==

== ENCOUNTER 2021-01-17 08:44 | Outpatient (REF) | payer MEDICARE, MEDICAID, SELFPAY ==
--- NOTE | ~2021-01-17 | MR_ITS ---
EXAMINATION: MR ABDOMEN WITHOUT AND WITH CONTRAST CLINICAL INFORMATION: Acute pancreatitis COMPARISON: Previous CT of the abdomen and pelvis most recent 12/17/2020 TECHNIQUE: MR abdomen was performed without and with use of 8 mL intravenous Gadavist gadolinium contrast. Postcontrast images are performed in multiphase dynamic sequences. Imaging was performed in 3 planes. MRCP sequences were also performed. FINDINGS: LUNG BASES: The visualized lung bases are unremarkable. LIVER, GALLBLADDER, AND BILIARY TREE: The liver is normal in size, smooth in contour. There is signal loss in the liver on out of phase sequences suggestive of fatty infiltration. No focal hepatic lesion. The gallbladder is normal in size. There is dependent intermediate signal seen dependently in the gallbladder probably representing sludge or possibly a small stones/gravel. This could be better assessed with ultrasound. The gallbladder wall does not appear thickened. No inflammatory changes around the gallbladder or pericholecystic fluid is seen. MRCP sequences are limited due to motion. There is no intra or extrahepatic biliary duct dilatation. PANCREAS: There were 2 small small cystic areas seen in the head of the pancreas measuring 4 x 8 mm and 4 x 5 mm in the uncinate process of the head of the pancreas, image 50 and 59 postcontrast. This is low signal on T1, high signal on T2-weighted sequences and demonstrates no evidence of enhancement. MRCP sequences are limited due to motion and relationship to the main pancreatic duct is difficult to determine. The pancreas is otherwise normal in signal. The pancreas demonstrates normal homogeneous enhancement. There are still inflammatory changes seen in the fat surrounding the head of the pancreas. There is a lesion in the small bowel mesentery slightly inferior to the pancreas. This is high signal on T1-weighted sequences, heterogeneous on T2-weighted sequences and does not demonstrate evidence of enhancement. This measures 2.5 cm and probably represents a complex fluid collection related to pancreatitis. This is decreased in size compared to 2.8 x 4.[address] November 2020. Evaluation of the pancreatic duct on MRCP is significantly limited due to motion. No main pancreatic duct dilatation is seen. SPLEEN: Normal. ADRENAL GLANDS: Normal. KIDNEYS AND URETERS: The kidneys are normal in size, shape, and enhance symmetrically. No hydronephrosis. No perinephric stranding. GASTROINTESTINAL TRACT: No bowel obstruction. No ascites or fluid collection. ABDOMINAL WALL: There is a small umbilical hernia containing fat. LYMPH NODES: There are small periportal lymph nodes. No enlarged lymph nodes are seen. VASCULAR: Unremarkable. OSSEOUS STRUCTURES: Marrow signal normal. MR/MR abdomen wo/w con IMPRESSION: Two small cystic areas in the head of the pancreas, largest measuring 4 x 8 mm. The pancreas otherwise enhances normally. There are still inflammatory changes seen in the fat surrounding the head of the pancreas. There is interval decrease in size in the likely complex fluid collection inferior to the pancreas in the small bowel mesentery now measuring 2.5 cm. Very limited MRCP. Small periportal lymph nodes. Fatty infiltration of the liver. Layering dependent intermediate signal material in the gallbladder questionable for sludge versus small stones/gravel. This could be further assessed with ultrasound.
== END 2021-01-17 08:45 | disposition home or self-care (01) ==
LOC: HO.MRI 08:44
PROVIDERS: Visit Provider Internal Medicine Gastroenterology
DX: K85.90 Acute pancreatitis without necrosis or infection, unspecified (principal)
CPT/HCPCS: 74183; A9585

== ENCOUNTER → 2021-01-31 09:24 | Outpatient (BNVA) | payer MEDICARE, MEDICAID, SELFPAY | PROVIDERS: Visit Provider Surgery | DX: K85.90 Acute pancreatitis without necrosis or infection, unspecified (principal); K80.20 Calculus of gallbladder without cholecystitis without obstruction | CPT/HCPCS: 99202 ==

== ENCOUNTER 2021-02-12 07:48 | Day surgery (SDC) | payer MEDICARE, MEDICAID, SELFPAY ==
--- NOTE | 2021-02-10 14:30 | P.CONAN_ITS ---
HPI - Anesthesia Eval Consult details Narrative: 50yo M for Laparoscopic Cholecystectomy, Poss Open *Multiple Med Allergies* Recurrent episodes of pancreatitis. Unknown etiology, possible hypertriglyceridemia. [facility] Active Problems Active Problems: All Active Problems (Updated 01/31/21 @ 09:57 by Daren Bonilla MD) Cholelithiasis (Acute) Pancreatitis (Acute) Past Medical History Medical History Depression Diabetes HTN (hypertension) Kidney stone Migraine Pancreatitis Surgical History Surgical History H/O neck surgery History of elbow surgery Hx of colonoscopy Hx of endoscopy Social History Social History Household Members: Spouse Housing: Apartment Do you presently have visiting nurse or other home services: No Alcohol intake: never Patient Tobacco Use Status: Never used Tobacco Second Hand Smoke Exposure: No Use of substances other than those prescribed or required for medical reasons: No Are you DNR?: No Advance Directives: No Advance Directives Information Provided: Yes Advance Directives on File: No service: No Current occupational status: disabled Meds Allergies Allergy/AdvReac Type Severity Reaction Status Date / Time gabapentin [GABAPENTIN] Allergy Mild RASH Verified 02/12/21 07:57 famotidine [From Pepcid] Allergy Unknown RASH Verified 02/12/21 07:57 pregabalin [From LYRICA] Allergy Unknown VOMITING Verified 02/12/21 07:57 pantoprazole [From Protonix] Allergy Rash Verified 02/12/21 07:57 ibuprofen [From Advil] AdvReac Unknown STOMACH Verified 02/12/21 07:57 UPSET Home Medications Medication Instructions Recorded Confirmed Last Taken Type Emgality Pen 1 mg SUBCUT Q4W 12/08/20 01/31/21 11/29/20 History fenofibrate 2 tab PO DAILY 12/08/20 01/31/21 Unknown History fluoxetine 1 cap PO DAILY 12/08/20 01/31/21 Unknown History nortriptyline 25 cap PO BEDTIME 12/08/20 01/31/21 Unknown History omeprazole 1 cap PO DAILY 12/08/20 01/31/21 Unknown History ondansetron 1 tab PO Q8H PRN 12/08/20 01/31/21 Unknown History oxycodone 1 tab PO QID PRN 12/08/20 01/31/21 Unknown History pioglitazone 1 tab PO BID 12/08/20 01/31/21 Unknown History rosuvastatin 1 tab PO DAILY 12/08/20 01/31/21 Unknown History sumatriptan succinate 100 mg PO DAILY PRN 12/08/20 01/31/21 Unknown History tizanidine 1 tab PO TID 12/08/20 01/31/21 Unknown History zolpidem 10 tab PO BEDTIME PRN 12/08/20 01/31/21 Unknown History Exam Exam Date and Time: February 10, 2021 1430 Pertinent Lab Results Pertinent Lab Results: Laboratory Tests 12/17/20 12/17/20 05:46 05:46 WBC 8.1 Hgb 12.6 L Hct 40.0 L Plt Count 315 Sodium 138 Potassium 3.8 Chloride 98 Carbon Dioxide 28 BUN 14 Creatinine 0.89 Laboratory Tests 12/13/20 06:25 Total Bilirubin 0.9 Direct Bilirubin 0.5 AST 21 D ALT 11 Alkaline Phosphatase 63 D Total Protein 7.7 Albumin 4.0 Lipase 117 H Narrative Narrative: EKG 11/2020 (during C admit with pancreatitis) Vent. Rate : 102 BPM Atrial Rate : 102 BPM P-R Int : 154 ms QRS Dur : 114 ms QT Int : 364 ms P-R-T Axes : 037 066 012 degrees QTc Int : 474 ms Sinus tachycardia Possible Left atrial enlargement Borderline ECG When compared to the previous EKG of No significant changes seen Assessment and Plan Assessment Anesthesia Assessment: Chart Reviewed
[2021-02-11 10:37] VITALS: BMI 33.0
[2021-02-12] VITALS (17 sets, daily range): BP systolic 119–178; BP diastolic 74–90; PULSE 82–99; RESP 14–20; TEMP 36.2–36.6; O2SAT 93–98
[2021-02-12] MEDS: Acetaminophen 325 MG TABLET 650 MG PO (08:09)
[2021-02-12] MEDS: Lactated Ringers 1,000 ML 100 ML IVCONT (08:23)
[2021-02-12 08:32] LABS: Glucose, Whole Blood 91 mg/dL (60-115)
--- NOTE | 2021-02-12 08:39 | MHC.SHP ---
Pre-Procedural Eval Section A The patient is an INPATIENT: No Changes since office visit: Yes Patient answered all questions; No Cold of Flu in the past 2 weeks, No New Medical Problems and No Changes in Medication The History & Physical has been completed within 30 days and I have reviewed it.: Yes Section B Chief Complaint: Pancreatitis, Cholelithiasis Allergies: Allergies Allergy/AdvReac Type Severity Reaction Status Date / Time gabapentin [GABAPENTIN] Allergy Mild RASH Verified 02/12/21 07:57 famotidine [From Pepcid] Allergy Unknown RASH Verified 02/12/21 07:57 pregabalin [From LYRICA] Allergy Unknown VOMITING Verified 02/12/21 07:57 pantoprazole [From Protonix] Allergy Rash Verified 02/12/21 07:57 ibuprofen [From Advil] AdvReac Unknown STOMACH Verified 02/12/21 07:57 UPSET Plan Diagnosis/Plan: Unchanged I have reviewed the history and physical and performed a pertinent physical examination on my patient. No changes have occurred unless specified.
--- NOTE | 2021-02-12 08:46 | HO.ANESPROP2 ---
REPLACED BY [facility] Active Problems Active Problems: All Active Problems (Updated 02/10/21 @ 14:31 by Taylor Salvador) Cholelithiasis (Acute) Pancreatitis (Acute) Past Medical History Medical History Depression Diabetes HTN (hypertension) Kidney stone Migraine Pancreatitis Family History Family history of problems with anesthesia: No Surgical History Surgical History H/O neck surgery History of elbow surgery Hx of colonoscopy Hx of endoscopy History of Problems with Anesthesia: No Social History Social History Household Members: Spouse Housing: Apartment Do you presently have visiting nurse or other home services: No Alcohol intake: never Patient Tobacco Use Status: Never used Tobacco Second Hand Smoke Exposure: No Use of substances other than those prescribed or required for medical reasons: No Are you DNR?: No Advance Directives: No Advance Directives Information Provided: Yes Advance Directives on File: No service: No Current occupational status: disabled Meds Allergies Allergy/AdvReac Type Severity Reaction Status Date / Time gabapentin [GABAPENTIN] Allergy Mild RASH Verified 02/12/21 07:57 famotidine [From Pepcid] Allergy Unknown RASH Verified 02/12/21 07:57 pregabalin [From LYRICA] Allergy Unknown VOMITING Verified 02/12/21 07:57 pantoprazole [From Protonix] Allergy Rash Verified 02/12/21 07:57 ibuprofen [From Advil] AdvReac Unknown STOMACH Verified 02/12/21 07:57 UPSET Active Medications: Current Medications Generic Name Dose Route Start Last Admin Trade Name Mannq PRN Reason Stop Dose Admin Lactated Ringer's 1,000 mls @ 100 mls/hr 02/12/21 08:00 02/12/21 08:23 Lr IVCONT 100 mls/hr .Q10H MACKENZIE Administration Home Medications Medication Instructions Recorded Confirmed Last Taken Type Emgality Pen 1 mg SUBCUT Q4W 12/08/20 01/31/21 11/29/20 History fenofibrate 2 tab PO DAILY 12/08/20 01/31/21 Unknown History fluoxetine 1 cap PO DAILY 12/08/20 01/31/21 Unknown History nortriptyline 25 cap PO BEDTIME 12/08/20 01/31/21 Unknown History omeprazole 1 cap PO DAILY 12/08/20 01/31/21 Unknown History ondansetron 1 tab PO Q8H PRN 12/08/20 01/31/21 Unknown History oxycodone 1 tab PO QID PRN 12/08/20 01/31/21 Unknown History pioglitazone 1 tab PO BID 12/08/20 01/31/21 Unknown History rosuvastatin 1 tab PO DAILY 12/08/20 01/31/21 Unknown History sumatriptan succinate 100 mg PO DAILY PRN 12/08/20 01/31/21 Unknown History tizanidine 1 tab PO TID 12/08/20 01/31/21 Unknown History zolpidem 10 tab PO BEDTIME PRN 12/08/20 01/31/21 Unknown History Exam Exam Date and Time: February 12, 2021 0846 Height,Weight and Vital Signs: Height 5 ft 4 in Weight 87.2 kg Last Vital Signs Temp 97.8 F 02/12/21 08:00 Pulse 95 02/12/21 08:00 Resp 15 02/12/21 08:00 BP 133/90 H 02/12/21 08:00 Pulse Ox 97 02/12/21 08:00 Pertinent Lab Results Pertinent Lab Results: Laboratory Tests 02/12/21 08:27 POC Glucose 91 Airway Mallampati Class: II TM Dist: >3cm Neck ROM: Full Loose/Missing/Broken Teeth: No Assessment and Plan Assessment Anesthesia Assessment: Anesthesia Plan Discussed and Chart Reviewed Final Anesthetic Review NPO: Yes ASA Class: II Final Preanesthetic Review: No Changes in Pt Med Stat, Meds/Allgs Chart Reviewed, Consent Obtained/Reviewed and Anes Risks/Benef Reviewed Patient Risk: Intermediate Procedure Risk: Intermediate Anesthetic Plan Anesthetic Plan: GA and Agree w/ Assess. and Plan Disposition: Standard PACU
--- NOTE | 2021-02-12 10:22 | P.OP_ITS ---
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 Operative findings: Mild adhesions to the gallbladder; small gallstones in the gallbladder Specimen:gallbladder Estimated blood loss: 5 mls Complications: none Procedure details: Patient was brought to the OR and placed in a supine position. After administering general anesthesia the patient's abdomen was prepped with ChloraPrep and draped in a sterile fashion. Local anesthesia consisting of 0.25% Sensorcaine with epinephrine was infiltrated in a periumbilical region. A 5 mm incision was made above the umbilicus in a transverse fashion. The Veress needle was then inserted while elevating abdominal cavity with towel clips. After positive drop test the abdomen was insufflated to a pressure of 15 mm of mercury. The Veress needle was then removed and a 5 mm trocar inserted. The camera was inserted in the abdomen explored. A 12 mm trocar was then placed in the epigastrium and 2 5 mm trocars placed in the right upper quadrant. The patient was placed in reverse Trendelenburg positioning and rotated to the left. The gallbladder was grasped with the fundus and retracted cephalad.. The infundibulum Was then grasped and retracted away from the liver bed. The Dolphin dissected was then used to dissect the peritoneum off the infundibulum to reveal the junction with the cystic duct. Cystic artery was noted slightly medial and posterior to the cystic duct. After obtaining a critical view the cystic duct was doubly clipped and divided. The cystic artery was then doubly clipped and divided. The gallbladder was then dissected off the liver bed using electrocautery with an L hook. Hemostasis was assured all times using the electrocautery. When the gallbladder is completely dissected off the liver bed was placed in an Endo- Catch bag and brought out through the epigastric incision. The gallbladder was sent to pathology for further examination. The abdomen was then re-examined. The liver bed was irrigated and suctioned dry. No bleeding or bile leak could be identified. CO2 was then evacuated and all trocars removed. Fascia was closed at the epigastric incision using a [id number] 0 Polysorb suture. Skin was closed in all incisions using a subcuticular 4 0 Polysorb suture. Sterile dressings consisting of Steri-Strips, 2 x 2 gauze, and Tegaderm were then applied. The patient tolerated the procedure well. Sponge instrument and needle counts reported as correct. The patient was transferred to PACU in stable condition.
[2021-02-12] MEDS: oxyCODONE HCl Immed Release 5 MG TABLET PO (10:48)
[2021-02-12] MEDS: fentaNYL citrate/PF 100 MCG/2 ML VIAL 50 MCG IVPUSH ×4 (10:53→11:18)
[2021-02-12] MEDS: ondansetron HCL 4 MG/2 ML VIAL IVPUSH (11:30)
[2021-02-12] MEDS: HYDROmorphone HCl 0.5 MG/0.5 ML SYRINGE IVPUSH (12:40)
== END 2021-02-12 13:20 | disposition home or self-care (01) ==
PROVIDERS: Visit Provider Surgery
PROC: 0FT44ZZ Resection of Gallbladder, Percutaneous Endoscopic Approach (ICD-10-PCS; CPT 47562; principal; 2021-02-12 09:40)
DX: K85.10 Biliary acute pancreatitis without necrosis or infection (principal); K80.10 Calculus of gallbladder with chronic cholecystitis without obstruction; K82.8 Other specified diseases of gallbladder; I10 Essential (primary) hypertension; E11.9 Type 2 diabetes mellitus without complications; Z79.899 Other long term (current) drug therapy
CPT/HCPCS: 47562; 82947; 88304; J1100; J1170; J2405; J3010

== ENCOUNTER → 2021-02-21 11:34 | Outpatient (BNVA) | payer MEDICARE, MEDICAID, SELFPAY | PROVIDERS: Visit Provider Surgery | DX: K85.90 Acute pancreatitis without necrosis or infection, unspecified (principal); K80.20 Calculus of gallbladder without cholecystitis without obstruction; K59.00 Constipation, unspecified; E11.9 Type 2 diabetes mellitus without complications; I10 Essential (primary) hypertension; Z09 Encounter for follow-up examination after completed treatment for conditions other than malignant neoplasm; Z88.5 Allergy status to narcotic agent; Z88.8 Allergy status to other drugs, medicaments and biological substances; Z79.84 Long term (current) use of oral hypoglycemic drugs; Z79.899 Other long term (current) drug therapy | CPT/HCPCS: 99212 ==

== ENCOUNTER → 2021-03-13 10:52 | Outpatient (BNVA) | payer MEDICARE, MEDICAID, SELFPAY | PROVIDERS: Visit Provider Surgery | DX: Z48.815 Encounter for surgical aftercare following surgery on the digestive system (principal); Z90.49 Acquired absence of other specified parts of digestive tract; Z87.19 Personal history of other diseases of the digestive system | CPT/HCPCS: 99212 ==

== ENCOUNTER → 2021-04-21 12:36 | Outpatient (BNVA) | payer MEDICARE, MEDICAID, SELFPAY | PROVIDERS: PCP Nurse Practitioner Family; Visit Provider Internal Medicine Gastroenterology | DX: Z48.815 Encounter for surgical aftercare following surgery on the digestive system (principal); K85.90 Acute pancreatitis without necrosis or infection, unspecified; Z90.49 Acquired absence of other specified parts of digestive tract | CPT/HCPCS: Q3014 ==

== ENCOUNTER 2021-04-22 11:10 | Outpatient (REF) | payer MEDICARE, MEDICAID, SELFPAY ==
[2021-04-22 11:44] LABS: MANUAL DIFF FLAG NO
[2021-04-22 11:45] LABS: Basophils Absolute Auto 0.1 X10*3/uL (0.0-0.2); Basophils Percent Auto 0.7 % (0-2); Eosinophils Absolute Auto 0.1 X10*3/uL (0.0-0.4); Imm Gran Abs Auto 0.03 X10*3/uL (0.00-0.03); Imm Gran Pct Auto 0.4 % (0.0-0.4); Lymphocytes Absolute Auto 2.6 X10*3/uL (1.2-4.9); Lymphocytes Percent Auto 37.9 % (20-40); Mean Corpuscular HGB Conc 31.8 g/dl (31.0-36.0); Mean Corpuscular Hemoglobin 27.6 pg (27.0-33.0); Mean Corpuscular Volume 86.6 fL (80-98); Monocytes Absolute Auto 0.6 X10*3/uL (0.1-1.2); Monocytes Percent Auto 8.2 % (2-11); Neutrophils Absolute Auto 3.5 X10*3/uL (2.0-8.3); Neutrophils Percent Auto 50.8 % (45-73); Platelet Count 208 X10*3/uL (160-400); Red Blood Count 5.08 X10*6/uL (4.60-5.80); Red Cell Distribution Width 13.8 % (11.0-16.0); White Blood Count 6.9 X10*3/uL (4.8-10.8)
[2021-04-22 12:27] LABS: Alanine Aminotransferase 24 U/L (0-40); Albumin Level 4.9 g/dL (3.5-5.0); Alkaline Phosphatase 57 U/L (39-117); Aspartate Amino Transferase 33 U/L (5-37); Bilirubin Direct 0.2 mg/dL (0.0-0.5); Bilirubin Total 0.5 mg/dL (0.0-1.0); Lipase 71 U/L (8-78); Total Protein 8.7 g/dL (6.5-8.0); Triglycerides 143 mg/dL
== END 2021-04-22 11:11 | disposition home or self-care (01) ==
LOC: HO.LAB 11:10
PROVIDERS: PCP Nurse Practitioner Family; Visit Provider Internal Medicine Gastroenterology
DX: K85.90 Acute pancreatitis without necrosis or infection, unspecified (principal)
CPT/HCPCS: 36415; 80076; 83690; 84478; 85025

== ENCOUNTER → 2021-11-27 11:44 | Outpatient (BNVA) | payer MEDICARE, MEDICAID, SELFPAY | PROVIDERS: Visit Provider Internal Medicine Gastroenterology | DX: K85.90 Acute pancreatitis without necrosis or infection, unspecified (principal); K80.20 Calculus of gallbladder without cholecystitis without obstruction; K21.9 Gastro-esophageal reflux disease without esophagitis; E11.9 Type 2 diabetes mellitus without complications; I10 Essential (primary) hypertension; E78.5 Hyperlipidemia, unspecified; Z88.8 Allergy status to other drugs, medicaments and biological substances; Z79.84 Long term (current) use of oral hypoglycemic drugs; Z79.891 Long term (current) use of opiate analgesic; Z79.899 Other long term (current) drug therapy; Z90.49 Acquired absence of other specified parts of digestive tract | CPT/HCPCS: Q3014 ==

== ENCOUNTER → 2022-05-28 08:24 | Outpatient (BNVA) | payer MEDICARE, MEDICAID, SELFPAY | PROVIDERS: Visit Provider Internal Medicine Gastroenterology | DX: K85.90 Acute pancreatitis without necrosis or infection, unspecified (principal); K80.20 Calculus of gallbladder without cholecystitis without obstruction | CPT/HCPCS: 99212 ==

== ENCOUNTER 2022-06-05 11:46 | Outpatient (REF) | payer MEDICARE, MEDICAID, SELFPAY ==
[2022-06-05 14:07] LABS: Hemoglobin 14.6 g/dl (14.0-18.0); Monocytes Percent Auto 6.5 % (2-11); SCAN SMEAR FLAG 1
[2022-06-05 14:09] LABS: Basophils Percent Auto 0.6 % (0-2); Eosinophils Absolute Auto 0.2 X10*3/uL (0.0-0.4); Eosinophils Percent Auto 2.2 % (0-4); Hematocrit 43.2 % (42.0-52.0); Imm Gran Abs Auto 0.03 X10*3/uL (0.00-0.03); Imm Gran Pct Auto 0.4 % (0.0-0.4); Lymphocytes Absolute Auto 2.9 X10*3/uL (1.2-4.9); Lymphocytes Percent Auto 39.3 % (20-40); Mean Corpuscular HGB Conc 33.8 g/dl (31.0-36.0); Mean Corpuscular Hemoglobin 27.7 pg (27.0-33.0); Mean Platelet Volume 13.5 fL (9.4-12.4); Monocytes Absolute Auto 0.5 X10*3/uL (0.1-1.2); Neutrophils Absolute Auto 3.7 x10*3/uL (2.0-8.3); Platelet Count 216 X10*3/uL (160-400); Red Blood Count 5.27 X10*6/uL (4.60-5.80); White Blood Count 7.3 X10*3/uL (4.8-10.8)
[2022-06-05 14:15] LABS: MANUAL DIFF FLAG NO; PLT ABN DIST 1
[2022-06-05 14:37] LABS: Alanine Aminotransferase 27 U/L (0-40); Albumin Level 4.8 g/dL (3.5-5.0); Alkaline Phosphatase 55 U/L (39-117); Anion Gap 16 (12-20); Aspartate Amino Transferase 37 U/L (5-37); Bilirubin Total 0.3 mg/dL (0.0-1.0); Blood Urea Nitrogen 14 mg/dL (9-16); C Reactive Protein 0.08 mg/dL (< or = 0.50); Calcium 10.3 mg/dL (8.4-10.2); Carbon Dioxide 24 mmol/L (22-29); Chloride 103 mmol/L (96-108); Estimated Glomerular Filt Rate 59; Glucose Random 103 mg/dL (60-115); Lipase 46 U/L (8-78); Potassium 4.1 mmol/L (3.3-5.1); Sodium 139 mmol/L (135-145); Total Protein 8.6 g/dL (6.5-8.0)
[2022-06-05 14:41] LABS: Vitamin D 25-OH Total 25.8 ng/mL (>30)
[2022-06-05 15:00] LABS: Folate 7.3 ng/mL (> or = 4.0); Vitamin B12 282 pg/mL (200-900)
== END 2022-06-05 11:47 | disposition home or self-care (01) ==
LOC: HO.HMGCLDS 11:46
PROVIDERS: Visit Provider Internal Medicine Gastroenterology
DX: K85.90 Acute pancreatitis without necrosis or infection, unspecified (principal)
CPT/HCPCS: 36415; 80053; 82306; 82607; 82746; 83690; 85025; 86140

== ENCOUNTER 2022-06-10 13:22 | Outpatient (REF) | payer MEDICARE, MEDICAID, SELFPAY ==
--- NOTE | ~2022-06-10 | CT_ITS ---
EXAMINATION: CT ABDOMEN AND PELVIS WITH CONTRAST CLINICAL INFORMATION: Acute pancreatitis without necrosis or infection COMPARISON: MRI 01/17/2021. CT 12/17/2020 TECHNIQUE: Multidetector volumetric images were obtained from the superior aspect of the liver through the pubic symphysis following administration 85 mL of Omnipaque 350 intravenous contrast. Sagittal and coronal reformatted images were obtained on the technologist's workstation. Oral contrast: No This CT examination was performed using dose optimization techniques as appropriate, variously including the following: *Automated exposure control *Adjustment of mA and/or kV according to patient size (this includes techniques or standardized protocols for targeted exams where dose is matched to indication/reason for exam; i.e. extremities or head) *Use of iterative reconstruction technique DLP: 482 mGy-cm FINDINGS: LUNG BASES: The visualized lung bases are unremarkable. LIVER, GALLBLADDER, AND BILIARY TREE: The liver is normal in size, shape, and attenuation. No focal hepatic lesion or biliary ductal dilatation is present. Gallbladder surgically absent. No biliary ductal dilatation. PANCREAS: Coarse calcifications are seen in the pancreatic head, similar to the prior study 12/17/2020. The pancreatic duct is not visible, nondilated. There is a 1.2 cm low-density structure in the head of the pancreas, image 37/97, possibly a pancreatic cyst. This was not present on the prior MRI. The smaller cysts by MRI are not well seen intermingled with the calcifications. No peripancreatic fluid or inflammatory changes. SPLEEN: Unremarkable. ADRENAL GLANDS: Unremarkable. KIDNEYS AND URETERS: There is focal cortical thinning of the posterior cortex of the right mid kidney in image 42/97, likely an area of atrophy. This does not have the appearance of the fat-containing mass on prior MRI. There is a tiny 4 mm right mid-upper renal cyst for which no imaging follow-up is recommended. There is a 2 to 3 mm nonobstructing left lower pole calculus in the possible punctate 1 mm left mid renal calculus image 40/97. No hydronephrosis. BLADDER: Unremarkable. GASTROINTESTINAL TRACT: Stomach and small bowel are nondilated. Normal appendix. Colonic diverticulosis without evidence of colitis or diverticulitis. ABDOMINAL WALL: No significant hernia is appreciated. LYMPH NODES: Normal. VASCULAR: Unremarkable. PELVIC VISCERA: Unremarkable. OSSEOUS STRUCTURES: Degenerative changes. CT/CT abdomen pelvis w IV con IMPRESSION: No acute CT findings. No evidence of acute pancreatitis. No pancreatic necrosis. Again seen are coarse calcifications in the head of the pancreas consistent with chronic calcific pancreatitis. Possible 1.2 cm cyst in the head of the pancreas. Recommend follow-up MRI of the abdomen including MRCP images in 6-12 months to assess stability.
[2022-06-10] MEDS: Barium Sulfate Oral (Berry) 450 ML ORAL.SUSP 900 ML PO (15:56)
[2022-06-10] MEDS: iohexoL 350 MG/ML 100 ML INFUS..BTL 85 ML IV (15:57)
== END 2022-06-10 13:23 | disposition home or self-care (01) ==
LOC: HO.CT 13:22
PROVIDERS: PCP Family Medicine; Visit Provider Internal Medicine Gastroenterology
DX: K85.90 Acute pancreatitis without necrosis or infection, unspecified (principal)
CPT/HCPCS: 74177; Q9967

== ENCOUNTER → 2022-11-26 09:47 | Outpatient (BNVA) | payer MEDICARE, MEDICAID, SELFPAY | PROVIDERS: PCP Family Medicine; Visit Provider Internal Medicine Gastroenterology | DX: K80.20 Calculus of gallbladder without cholecystitis without obstruction (principal); K85.90 Acute pancreatitis without necrosis or infection, unspecified | CPT/HCPCS: 99212 ==

== ENCOUNTER 2022-12-24 10:40 | Outpatient (REF) | payer MEDICARE, MEDICAID, SELFPAY ==
[2022-12-24 15:16] LABS: Blood Urea Nitrogen 12 mg/dL (9-16); Estimated Glomerular Filt Rate > 60; Lipase 81 U/L (8-78)
== END 2022-12-24 10:41 | disposition home or self-care (01) ==
LOC: HO.HMGCLDS 10:40
PROVIDERS: PCP Family Medicine; Visit Provider Internal Medicine Gastroenterology
DX: K85.90 Acute pancreatitis without necrosis or infection, unspecified (principal)
CPT/HCPCS: 36415; 82565; 83690; 84520

== ENCOUNTER 2023-01-01 09:11 | Outpatient (REF) | payer MEDICARE, MEDICAID, SELFPAY ==
--- NOTE | ~2023-01-01 | MR_ITS ---
EXAMINATION: MRI ABDOMEN WITH AND WITHOUT CONTRAST CLINICAL INFORMATION: K85.90 - Acute pancreatitis without necrosis or infection, unspecified COMPARISON: Prior studies including the T1 CT scan and the 01/17/2021 MRI TECHNIQUE: Multiple routine MRI sequences through the abdomen were obtained on a high-field 1.5Tesla MRI. Pre-and postcontrast images with 8.5 mL of Gadavist intravenous contrast were obtained. This included a dynamic contrast-enhanced technique. FINDINGS: Lung bases: The visualized lung bases are unremarkable. Liver: There is mild diffuse signal loss on the out of phase imaging consistent with diffuse fatty infiltration. No suspicious focal hepatic lesions seen. Specifically no suspicious arterial phase enhancing lesions or suspicious washout of contrast on later phases. No biliary ductal dilatation. Gallbladder: Surgically absent Pancreas: Specific attention is given to the pancreas. There is mild diffuse loss of the normal T1 bright signal to the pancreatic parenchyma. Pancreatic duct is dilated measuring up to 0.6 cm the pancreatic head and 0.4 cm in the pancreatic body. The distal most pancreatic duct in the pancreatic head is not able to be delineated even on the thin slice images. The coarsened calcifications that were seen in this area on the prior CT scan are not able to be delineated on the MRI. I do not appreciate any intraluminal filling defects within the dilated duct itself and there is no suspicious enhancement within the pancreatic parenchyma. No peripancreatic inflammatory changes or fluid at this time. Spleen: Unremarkable Adrenals: Unremarkable Kidneys: Kidneys are normal in size, shape, and signal. Tiny T2 bright cortical cysts incidentally seen in the anterior midpole of the right kidney. No suspicious renal mass lesion seen. No hydronephrosis or perinephric edema. Other: No bulky mesenteric or retroperitoneal adenopathy MR/MR abdomen wo/w con IMPRESSION: 1. The pancreatic duct is dilated measuring up to 0.6 cm in the pancreatic head and 0.4 cm in the pancreatic body. The distal most pancreatic duct in the pancreatic head is not able to be delineated as it extends up to the ampulla even on the thin slice images. The coarsened calcifications seen in this area on the prior CT scan are not able to be delineated on the MRI. I do not appreciate any suspicious enhancement within the pancreatic parenchyma. Overall the constellation of findings would be consistent with sequela of prior pancreatitis. I do not appreciate any evidence for acute pancreatitis. 2. There is mild diffuse fatty infiltration of the liver.
== END 2023-01-01 09:12 | disposition home or self-care (01) ==
LOC: HO.MRI 09:11
PROVIDERS: PCP Family Medicine; Visit Provider Internal Medicine Gastroenterology
DX: K85.90 Acute pancreatitis without necrosis or infection, unspecified (principal)
CPT/HCPCS: 74183; A9585

== ENCOUNTER 2023-02-11 11:02 | Outpatient (AMB) | payer MEDICARE, MEDICAID, SELFPAY ==
[2023-02-11 11:09] VITALS: BP 126/76; PULSE 98; BMI 31.8
--- NOTE | 2023-02-11 11:09 | A.OFFVIS_ITS ---
Intake Vital Signs 02/11/23 11:09 Height 5 ft 4 in Weight 185 lb BMI 31.8 BP 126/76 Blood Pressure Location Lt brachial Position Sitting Pulse 98 Intake Visit Reasons: Cholelithiasis Intake Note: Patient follow up for Cholelithiasis, lab and MRI results. Patient cc: Nauseas on and off, some abdominal pain with bloating, acid reflex and between diarrhea and constipation. Hat Brim Curler Required: No Accompanied by: Family/Other Allergies gabapentin [GABAPENTIN] Allergy (Mild, Verified 02/11/23 11:09) RASH famotidine [From Pepcid] Allergy (Unknown, Verified 02/11/23 11:09) RASH pregabalin [From LYRICA] Allergy (Unknown, Verified 02/11/23 11:09) VOMITING pantoprazole [From Protonix] Allergy (Verified 02/11/23 11:09) Rash ibuprofen [From Advil] Adverse Reaction (Unknown, Verified 02/11/23 11:09) STOMACH UPSET Medication List - Last Reconciled 02/11/23 by Onel Valdez MD alprazolam (Xanax) 1 mg PO BID 1 day cholecalciferol (vitamin D3) 25 mcg PO DAILY docusate sodium 100 mg PO BID PRN fenofibrate 2 tabs PO DAILY fluoxetine 1 cap PO DAILY galcanezumab-gnlm (Emgality Pen) 1 mg subcut Q4W [id number]-hiytpans-vbnbben 12,000-38,000 -60,000 unit (Creon) 2 caps PO TID 60 days nortriptyline 25 caps PO BEDTIME omeprazole 1 cap PO DAILY ondansetron 1 tab PO Q8H PRN oxycodone 1 tab PO QID PRN oxycodone 5 mg PO Q6H PRN pioglitazone 1 tab PO BID rosuvastatin 1 tab PO DAILY sumatriptan succinate 100 mg PO DAILY PRN tizanidine 1 tab PO TID zolpidem 10 tabs PO BEDTIME PRN HPI Cholelithiasis HPI Details GI clinic visit for this 52-year-old male for follow-up of an episode of acute pancreatitis requiring hospitalization in November 2020.? Pt had an uneventful lap kaycee on 02/12/[address] Bonilla. IMAGING STUDIES:? 01/01/23 ABD MRI SHOWED: 1.? The pancreatic duct is dilated measuring up to 0.6 cm in the pancreatic head and 0.4 cm in the pancreatic body. The distal most pancreatic duct in the pancreatic head is not able to be delineated as it extends up to the ampulla even on the thin slice images. The coarsened calcifications seen in this area on the prior CT scan are not able to be delineated on the MRI. I do not appreciate any suspicious enhancement within the pancreatic parenchyma. Overall the constellation of findings would be consistent with sequela of prior pancreatitis. I do not appreciate any evidence for acute pancreatitis. 2.? There is mild diffuse fatty infiltration of the liver. 06/10/[address] SCAN SHOWED: No acute CT findings. No evidence of acute pancreatitis. No pancreatic necrosis. Again seen are coarse calcifications in the head of the pancreas consistent with chronic calcific pancreatitis. ? Possible 1.2 cm cyst in the head of the pancreas. Recommend follow-up MRI of the abdomen including MRCP images in 6-12 months to assess stability. ENDOSCOPIC STUDIES:?Patient reports having an upper endoscopy and colonoscopy 3 years ago in [place] and no polyps were detected. 2011 EUS was normal. TODAY'S VISIT: Has been eating less due to abdominal pain and bloating and loosing weight Taking dulcolax once a day for constipation and can have intermittent diarrhea. Blood sugars have been high. Eating once a day around 1:30 to 3 pm. Can wake up and eat something at night. PAST VISITS: Patient follow up for Cholelithiasis. Patient cc: abdominal bloating, acid reflex. Patient denies any other GI issues. Notes intermittent epigastric/LUQ pain radiating to the back after eating fired foods Pain is 5/10 and can last for 45 min. Pt notes nausea without vomiting when he has the pain. Intermittent diarrhea since Lap kaycee Everything is good. Can have intermittent heartburn related to diet. Appetite is good and weighs 185 lbs notes nausea, bloating and intermittent heartburn. Intermittent post prandial diarrhea twice a week. Takes Dulcolax once a day for constipation Taking Colace 2 capsules daily and Miralax three times a week for constipation. Abdominal pain has improved since the surgery Appetite is Ok and has 1 meal a day on some days. His weight has been stable. Complains of abd pain and nausea. Pain has improved to 4-5/10 (pain was 9-10/10 during hospitalization). Staying away from fried foods and sugar. Has lost some weight. Taking pancreatic enzyme 1 capsule with each meal. Denies recent change in bowel habits, constipation, diarrhea, black stools or rectal bleeding. Patient denies major cardiac or pulmonary problems, loud snoring or sleep apnea Denies problems with anesthesia in the past. Denies being on chronic anticoagulation. Patient denies known family history of pancreatic disease, colon polyps, colon cancer or other?GI?malignancy PFSH Medical History Depression Diabetes HTN (hypertension) Kidney stone Migraine Pancreatitis Surgical History H/O neck surgery History of elbow surgery Hx of colonoscopy Hx of endoscopy S/P laparoscopic cholecystectomy (02/12/21) Social History Household Members: Spouse Housing: Apartment Do you presently have visiting nurse or other home services: No Alcohol intake: never Patient Tobacco Use Status: Never used Tobacco Second Hand Smoke Exposure: No service: No Current occupational status: disabled Review of Systems Const All systems reviewed & are unremarkable except as noted in HPI and below Physical Exam Vital Signs: Last Vital Signs Pulse 98 02/11/23 11:09 BP 126/76 02/11/23 11:09 BMI result Body Mass Index 31.8 Const General: healthy appearing and no acute distress Nutritional Appearance: obese Orientation/consciousness: patient oriented x3 Limitations: no limitations HEENT Head: Yes normal to inspection Ears: hearing grossly normal bilaterally Eyes Sclerae: sclerae normal Pupils: Equal, round and reactive pupils present Neck Neck: Yes normal visual inspection Chest Chest palpation & inspection: normal inspection of the chest Resp Effort & Inspection: normal respiratory effort Auscultation: clear to auscultation bilaterally Cardio Palpation: normal PMI Rate: regular rate Rhythm: regular rhythm Heart sounds: S1 normal heart sound present, S2 normal heart sound present and no murmurs GI Palpation (GI): Soft to palpation, nontender and No hepatosplenomegaly present Auscultation: normal bowel sounds Rectal Exam - Male: Yes deferred Skin General skin exam: no rashes or lesions noted Neuro General: patient oriented x3, gait normal and moves all extremities Cranial nerves: Yes Equal, round and reactive pupils present Psych Appearance: grossly normal Mental Status: mental status grossly normal Assessment & Plan Assessment & Plan (1) Cholelithiasis: Comment: status post Lap Kaycee by Dr. Bonilla in 01/2021 Code(s): K80.20 - Calculus of gallbladder without cholecystitis without obstruction (2) Pancreatitis: Code(s): K85.90 - Acute pancreatitis without necrosis or infection, unspecified Plan 52 YM with DM, hyperlipidemia, GERD, depression, HAs, chronic back pain hospitalized in 11/2020 with nausea, abdominal pain and elevated lipase due to acute on chronic pancreatitis. Abdominal CT scan showed an ill-defined fluid collection is present along the anterior aspect of the pancreas extending into the small bowel mesentery with normal enhancement and no necrosis. A few small scattered calcifications are present within the head of the pancreas without dilatation of the pancreatic duct. Patient gave a history of recurrent episodes of pancreatitis over the past 12-15 years.? Pancreatitis was attributed to hypertriglyceridemia (reported to have triglyceride levels of >1000) Triglycerides were 100 on last admission.? Presence of pancreatic calcifications are suggestive of underlying chronic pancreatitis. Pt had an uneventful lap kaycee on 02/12/[address] Bonilla?to prevent future e pisodes of pancreatitis - since pancreatitis was felt to be due to undiagnosed biliary microlithiasis. Continue Omeprazole 40 mg daily for GERD and Creon with meals. Pt was advised to FU with PCP (Dr Saleh [phone]) regarding an increase in Triglycerides to > 200 in 07/2021 (lab reports faxed to PCP's office). 01/01/23 MRI of the abdomen was done and findings as noted above. FU in 4 months. Medications: New esomeprazole magnesium (Nexium) 20 mg PO DAILY 90 caps 0RF GERD 90 days lactobacillus combination no.9 (Adult 50 Plus Probiotic) administer with a meal 4,000 mmu cells PO DAILY 90 caps 1RF 90 days R14.0 - Abdominal distension (gaseous), K85.90 - Acute pancreatitis without necrosis or infection, unspecified Coding Level of Care Code Est Pt Level 4 (79576) Diagnoses Cholelithiasis K80.20 Pancreatitis K85.90 Time Spent (min) 23
== END 2023-02-11 11:50 | disposition home or self-care (01) ==
PROVIDERS: PCP Family Medicine; Visit Provider Internal Medicine Gastroenterology
DX: K80.20 Calculus of gallbladder without cholecystitis without obstruction (principal); K85.90 Acute pancreatitis without necrosis or infection, unspecified
CPT/HCPCS: 99213; 99214

== ENCOUNTER → 2023-02-11 11:02 | Outpatient (BNVA) | payer MEDICARE, MEDICAID, SELFPAY | PROVIDERS: PCP Family Medicine; Visit Provider Internal Medicine Gastroenterology | DX: K80.20 Calculus of gallbladder without cholecystitis without obstruction (principal); K85.90 Acute pancreatitis without necrosis or infection, unspecified | CPT/HCPCS: 99212 ==

== ENCOUNTER 2023-04-02 09:10 | Emergency (ER) | payer MEDICARE, MEDICAID, SELFPAY ==
--- NOTE | ~2023-04-02 | CT_ITS ---
EXAMINATION: CT ABDOMEN AND PELVIS WITHOUT CONTRAST CLINICAL INFORMATION: Left-sided back pain. Kidney stone. COMPARISON: Abdominal MRI January 01, [address] abdomen pelvis June 10, [address] abdomen December 17, 2020 TECHNIQUE: Multidetector volumetric imaging was performed from the superior aspect of the liver through the pubic symphysis. Sagittal and coronal reformatted images were obtained on the technologist's workstation. This CT examination was performed using dose optimization techniques as appropriate, variously including the following: *Automated exposure control *Adjustment of mA and/or kV according to patient size (this includes techniques or standardized protocols for targeted exams where dose is matched to indication/reason for exam; i.e. extremities or head) *Use of iterative reconstruction technique DLP: 545 mGy-cm FINDINGS: Visualized lung bases are well aerated. Again demonstrated is a 4 mm lingular pulmonary nodule. The liver is normal in size but demonstrates diffusely decreased attenuation. The gallbladder is surgically absent. Atrophy of the pancreatic head with similar mild dilatation of the proximal pancreatic duct. Several coarse calcifications are also again appreciated within the pancreatic head area there is no peripancreatic stranding. The spleen is normal in size. Symmetrically sized kidneys. There are a few tiny nonobstructing calculi within the left kidney, largest measuring approximately 3 mm. No right-sided renal calculi identified. No hydronephrosis of either kidney. Normal distention of the stomach. Normal caliber loops of small and large bowel. Mild colonic stool burden. Normal appendix. Normal caliber abdominal aorta. No retroperitoneal lymphadenopathy. The bladder is relatively decompressed and therefore not optimally characterized. There is mild diffuse bladder wall thickening which may be secondary to the bladder is decompressed state. The prostate gland is at the upper limits of normal in size. There is no gross free pelvic fluid. No inguinal lymphadenopathy. Degenerative changes of the spine. CT/CT abdomen pelvis wo IV con IMPRESSION: 1. There are a few tiny nonobstructing calculi within the left kidney. No right-sided renal calculi identified. No hydronephrosis of either kidney. 2. Diffusely decreased liver attenuation suggesting hepatic steatosis. Correlation with liver enzymes recommended. 3. Atrophy of the pancreatic head with similar mild dilatation of the proximal pancreatic duct. Several coarse calcifications are also again appreciated within the pancreatic head area. Findings are nonspecific but likely represent sequela of chronic pancreatitis. Fleischner guidelines were followed.
[2023-04-02 09:34] VITALS: BP 153/89; PULSE 105; RESP 16; TEMP 36.9; O2SAT 95; BMI 31.4
[2023-04-02] MEDS: diazePAM 2 MG TABLET PO (10:21)
[2023-04-02] MEDS: predniSONE 20 MG TABLET PO (10:21)
[2023-04-02 10:24] LABS: Glucose, Whole Blood 141 mg/dL (60-115)
[2023-04-02 10:33] LABS: Appearance Urine Clear; Color Urine Yellow; Glucose Urine UA 100 mg/dL (Negative); Leukocyte Esterase Urine Negative (Negative); Nitrite Urine Negative (Negative); PH 6.5 (5.0-9.0); Urine Blood Negative (Negative); Urine Ketones Negative (Negative); Urine Protein Negative (Neg-Trace)
[2023-04-02] MEDS: Ondansetron ODT 4 MG TAB.RAPDIS TRANSLINGU (11:21)
[2023-04-02 11:22] VITALS: RESP 18
[2023-04-02] MEDS: HYDROmorphone HCl 1 MG/ML SYRINGE IM (11:22)
[2023-04-02 11:29] LABS: MANUAL DIFF FLAG NO
[2023-04-02 11:31] LABS: Basophils Absolute Auto 0.1 X10*3/uL (0.0-0.2); Basophils Percent Auto 0.9 % (0-2); Eosinophils Absolute Auto 0.1 X10*3/uL (0.0-0.4); Eosinophils Percent Auto 1.6 % (0-4); Hemoglobin 14.8 g/dl (14.0-18.0); Imm Gran Abs Auto 0.05 X10*3/uL (0.00-0.03); Imm Gran Pct Auto 0.6 % (0.0-0.4); Lymphocytes Absolute Auto 2.7 X10*3/uL (1.2-4.9); Lymphocytes Percent Auto 34.3 % (20-40); Mean Corpuscular HGB Conc 32.9 g/dl (31.0-36.0); Mean Corpuscular Hemoglobin 27.5 pg (27.0-33.0); Mean Corpuscular Volume 83.5 fL (80.0-98.0); Mean Platelet Volume 12.8 fL (9.4-12.4); Monocytes Absolute Auto 0.5 X10*3/uL (0.1-1.2); Monocytes Percent Auto 6.7 % (2-11); Neutrophils Absolute Auto 4.4 x10*3/uL (2.0-8.3); Neutrophils Percent Auto 55.9 % (45-73); Platelet Count 233 X10*3/uL (160-400); Red Blood Count 5.39 X10*6/uL (4.60-5.80); Red Cell Distribution Width 13.8 % (11.0-16.0); White Blood Count 7.9 X10*3/uL (4.8-10.8)
[2023-04-02 11:55] LABS: Alanine Aminotransferase 23 U/L (0-40); Albumin Level 4.8 g/dL (3.5-5.0); Alkaline Phosphatase 66 U/L (39-117); Anion Gap 14 (12-20); Aspartate Amino Transferase 33 U/L (5-37); Bilirubin Total 0.5 mg/dL (0.0-1.0); Blood Urea Nitrogen 12 mg/dL (9-16); Calcium 10.6 mg/dL (8.4-10.2); Carbon Dioxide 24 mmol/L (22-29); Chloride 107 mmol/L (96-108); Creatinine Clr Calc Pharmacy 72.6; Estimated Glomerular Filt Rate > 60; Glucose Random 135 mg/dL (60-115); Lipase 154 U/L (8-78); Magnesium 1.5 mg/dL (1.6-2.6); Potassium 3.8 mmol/L (3.3-5.1); Sodium 141 mmol/L (135-145); Total Protein 8.9 g/dL (6.5-8.0)
--- NOTE | 2023-04-02 11:56 | ED.BACK ---
HPI - Back Pain/Injury General Chief Complaint: Back Pain/Injury Stated Complaint: Low Back Pain No Injury Time Seen by Provider: 04/02/23 09:44 Source: patient and family Mode of arrival: ambulatory Limitations: language barrier ( [place]-speaking) History of Present Illness HPI Narrative: 53yoM with a PMHx Sig for diabetes, hypertension, pancreatitis, Kidney stones, chronic back pain currently on oxycodone immediate release 10 mg tablets prescribed by his PCP for his chronic neck and back pain who is presenting to the ER with significant other at bedside they are both [place]-speaking with complaints of acute on chronic lower back pain that is radiating down his left buttocks/ leg which is similar to his prior episodes although little worse today. reports he has been taking his prescribed Soma muscle relaxer and 10 mg oxycodone and no symptomatic relief. He reports his blood sugars have been running high over the past few months in the 200s. Reports this morning he took his blood glucose level and was over 200 this morning this was before he ate or took any of his medications. He did take his p.o. diabetes medication. He is not on any insulin. He reports that his A1c level is between 8 and 9 and he has a follow-up with his primary care provider this week for repeat A1c level and altering his diabetes regimen. He denies any trauma, fevers, chest pain or shortness of breath, paresthesias, weakness, saddle anesthesia, urinary bowel incontinence or retention, IV drug use, flank pain, dysuria or hematuria, abnormal penile discharge, black or bloody stools, rashes or any other symptoms complaints or concerns at this time. MD elicited complaint: back pain Pertinent past history: prior back pain Onset (ago): day(s) (5) Timing: constant Severity: moderate Similar Symptoms Previously: Yes Quality: aching and spasming Location: lumbar spine Radiation: buttocks and left upper leg Exacerbating factors: movement, sitting upright, walking and lifting Relieving factors: none Context: unknown Associated symptoms: denies other symptoms Treatments prior to arrival: NSAIDS, acetaminophen, other medications, prescription analgesics and other medications Work related injury: No Related Data Home Medications Medication Instructions Recorded Confirmed fenofibrate 54 mg tablet 2 tab PO DAILY 12/08/20 02/11/23 fluoxetine 20 mg capsule 1 cap PO DAILY 12/08/20 02/11/23 galcanezumab-gnlm 120 mg/mL 1 mg subcut Q4W 12/08/20 02/11/23 subcutaneous pen injector (Emgality Pen) nortriptyline 25 mg capsule 25 cap PO BEDTIME 12/08/20 02/11/23 omeprazole 40 mg capsule,delayed 1 cap PO DAILY 12/08/20 02/11/23 release ondansetron 4 mg disintegrating 1 tab PO Q8H PRN Nausea And 12/08/20 02/11/23 tablet Vomiting oxycodone 10 mg tablet 1 tab PO QID PRN Pain 12/08/20 02/11/23 pioglitazone 15 mg tablet 1 tab PO BID 12/08/20 02/11/23 rosuvastatin 40 mg tablet 1 tab PO DAILY 12/08/20 02/11/23 sumatriptan succinate 100 mg tablet 100 mg PO DAILY PRN Migraine 12/08/20 02/11/23 Headache tizanidine 4 mg tablet 1 tab PO TID 12/08/20 02/11/23 zolpidem 10 mg tablet 10 tab PO BEDTIME PRN Insomnia 12/08/20 02/11/23 cholecalciferol (vitamin D3) 25 25 mcg PO DAILY 11/27/21 02/11/23 mcg (1,000 unit) capsule docusate sodium 100 mg capsule 100 mg PO BID PRN 05/28/22 02/11/23 Previous Rx's Medication Instructions Recorded oxycodone 5 mg tablet 5 mg PO Q6H PRN pain #14 tabs 02/14/21 alprazolam 1 mg tablet (Xanax) 1 mg PO BID 1 day #2 tabs 12/29/22 myepwo-fpfobbns-mtxlcmj 2 cap PO TID 60 days #360 caps 01/18/23 12,000-38,000-60,000 unit capsule,delayed rel (Creon) esomeprazole magnesium 20 mg 20 mg PO DAILY GERD 90 days #90 02/11/23 capsule,delayed release (Nexium) caps lactobacillus combination no.9 4 4,000 mmu cells PO DAILY 90 days 02/11/23 billion cell capsule (Adult 50 #90 caps Plus Probiotic) hydromorphone 2 mg tablet 2 mg PO Q6H PRN pain #4 tabs 04/02/23 (Dilaudid) prednisone 20 mg tablet 20 mg PO DAILY 5 days #5 tabs 04/02/23 Allergies Allergy/AdvReac Type Severity Reaction Status Date / Time gabapentin [GABAPENTIN] Allergy Mild RASH Verified 04/02/23 09:34 famotidine [From Pepcid] Allergy Unknown RASH Verified 04/02/23 09:34 pregabalin [From LYRICA] Allergy Unknown VOMITING Verified 04/02/23 09:34 pantoprazole [From Protonix] Allergy Rash Verified 04/02/23 09:34 ibuprofen [From Advil] AdvReac Unknown STOMACH Verified 04/02/23 09:34 UPSET Review of Systems Review of Systems: Constitutional : No trauma, No Weight loss, No Fever, No Chills, ENT/Mouth : No Hearing loss, No Ear Pain, No Nasal Congestion, No Sinus Pain, No Hoarseness, No sore throat, No Rhinorrhea, No Swallowing Difficulty Cardiovascular : No Chest Pain, No SOB Respiratory : No Cough, No Dyspnea Gastrointestinal : No Nausea, No Vomiting, No Diarrhea, No abdominal Pain, No Hematochezia, No Melena Genitourinary : No Dysuria, No Urinary Frequency, No Hematuria, No Urinary or Bowel Incontinence/retention Musculoskeletal : + Back pain, No neck pain, No joint stiffness, No joint swelling Skin : No Skin Lesions, No rash or signs of infection Neuro : No Weakness, No radiation, No Numbness, No Paresthesias, No headache, no loss of bowel or bladder incontinence, no saddle anesthesia, Focal weakness, No radiation Denies history of IV drug usage. Yes all other systems are reviewed and are negative PMFSH Past Medical History Attestation statement: The following information was validated with the patient. Source: old records reviewed, obtained from family and nursing notes reviewed Medical History Depression Diabetes HTN (hypertension) Kidney stone Migraine Pancreatitis Surgical History H/O neck surgery History of elbow surgery Hx of colonoscopy Hx of endoscopy S/P laparoscopic cholecystectomy (02/12/21) Social History Social History Household Members: Spouse Housing: Apartment Do you presently have visiting nurse or other home services: No Alcohol intake: never Patient Tobacco Use Status: Never used Tobacco Smoked in Last 30 Days: No Second Hand Smoke Exposure: No Advance Directives: Yes Advance Directives on File: Yes Advance Directives Date on File: 12/19/20 service: No Current occupational status: disabled Physical Exam Vital Signs: Vital Signs: Last Vital Signs Temp 98.4 F 04/02/23 09:34 Pulse 105 H 04/02/23 09:34 Resp 18 04/02/23 11:22 BP 153/89 H 04/02/23 09:34 Pulse Ox 95 04/02/23 09:34 O2 Del Method Room Air 04/02/23 09:34 BMI result Body Mass Index 31.4 vital signs have been reviewed as normal and appeared to be correct. Blood pressure 153/89. Heart rate 105. Respiration rate normal. Temperature normal. Oxygen saturation normal. Appearance: Alert. Oriented X3. No acute distress. Head: Normal external exam. Normocephalic. Atraumatic. Eyes: PERRLA. EOMI. Conjunctiva and sclera normal. Eyelids normal. ENT: EAC normal. TM's Normal. Pharynx normal. Uvula midline. Moist mucous membranes. No trismus noted. No drooling noted. No muffled voice noted. Neck: Normal inspection. Neck supple. FROM. No adenopathy. Thyroid Normal. No meningeal signs. No neck mass noted. CVS: Normal heart rate and rhythm. Heart sound normal. No murmurs noted. Pulses normal throughout. Respiratory: No respiratory distress. Painless inspiration. Breath sounds normal. No wheezes/rales/rhonchi noted. Chest nontender. No accessory muscle usage noted or decreased air movement noted. Abdomen: Soft and nontender. Bowel sounds normal in all 4 quadrants. No distention noted. No organomegaly noted. No visible injury noted. Back: No CVA tenderness. Full range of motion noted. No obvious deformities, or edema. Mild para-spinal muscular tenderness from lumbar region to coccyx. Full ROM in back and lower extremities. 5/5 strength hip extension/flexion, abduction, adduction. Mild Lumbar pain with hip flexion against resistance. Straight leg raise test negative on right; Straight leg raise test negative on left; Reflexes normal ankle and knee bilaterally; EHL motor strength normal bilaterally. No rashes/lesion/induration/fluctuance or signs infection noted. Skin: Skin warm and dry. Normal skin color. Normal skin turgor. No rashes/lesions/lacerations noted. Extremities: No lower extremity edema. Extremities exhibit normal range of motion. Extremities nontender. Neuro: Oriented X 3. No motor deficit. No sensory deficit. Reflexes normal. Patient has a normal steady gait. Course Course Course Narrative: Pt c likely muscular pain, but could be herniated disc. Neuro exam shows no deficits. Not c/w AAA/epidural abscess/dissection.No high risk Hx (Incont, fever, immunosupp, recent surgery/LP, coag, signif trauma, wt loss, puls mass, hx/o Ca, TB, or IVDU) to warrant MRI today. Not c/w Pyelo/UTI/kidney stone/spinal fx. Not cauda equina syndrome. Although due to history of kidney stones a CT scan noncontrast was obtained which revealed chronic processes including hepatic steatosis, chronic pancreatitis and degenerative changes to the lumbar spine otherwise no other acute processes. I did obtain labs and urine patient's glucose at this time is 01:41, calcium 10.6, magnesium 1.5, total protein 8.9, lipase 154. UA revealed 100 glucose otherwise no evidence of UTI. All other labs are within normal limits. Patient was given IV morphine and Zofran along with 20 mg of prednisone and Flexeril reports mild symptomatic relief. He is already on oxycodone he filled a prescription of oxycodone 112 tablets 10 mg on 03/11/2023 and he has a new refill will be on 04/11/2023 therefore he does not need more oxycodone. I explained to him that if he is on a narcotic contract I cannot prescribe him any narcotics although Patient reports that he will call his primary care provider if I do give him a few dilaudid to take home due to it is providing mild symptomatic relief therefore I will give him a few tablets and he will have to call his primary care provider and I will also prescribe him a short course of steroids although due to elevated glucose in the past 3-6 months being on only oral regimen will only be place him on 20 mg daily for the next 5 days and he will have to check his blood glucose level in call his primary care provider although he has an appointment in the next 2 days. Explained to him that he will increase his water intake and exercise. Along with instructions return if any new or worsening symptoms. Patient with spouse at bedside understand agree this plan. Medications Administered Discontinued Medications Generic Name Dose Route Start Last Admin Trade Name Mary PRN Reason Stop Dose Admin Diazepam 2 mg 04/02/23 10:13 04/02/23 10:21 Diazepam 2 Mg Tablet PO 04/02/23 10:14 2 mg ONCE ONE Administration Hydromorphone HCl 1 mg 04/02/23 11:15 04/02/23 11:22 Hydromorphone Hcl 1 Mg/Ml Syringe IM 04/02/23 11:16 1 mg ONCE ONE Administration Protocol Ondansetron HCl 4 mg 04/02/23 11:15 04/02/23 11:21 Ondansetron Odt 4 Mg Tab.Rapdis TRANSLINGU 04/02/23 11:16 4 mg ONCE ONE Administration Prednisone 20 mg 04/02/23 10:13 04/02/23 10:21 Prednisone 20 Mg Tablet PO 04/02/23 10:14 20 mg ONCE ONE Administration Medical Decision Making Medical Decision Making MDM Narrative: see course in detail Differential Diagnosis Differential Diagnoses: The differential diagnosis associated with the presentation includes see course in detail Admission/Observation Consideration of admission/observation: Escalation of care including admission/observation considered Lab Data [facility] Lab Attestation statement: I reviewed the patient's lab results. 04/02/23 11:18 04/02/23 11:18 Labs: Lab Results 04/02/23 04/02/23 04/02/23 Range/Units 10:20 10:23 11:18 WBC 7.9 (4.8-10.8) X10*3/uL RBC 5.39 (4.60-5.80) X10*6/uL Hgb 14.8 (14.0-18.0) g/dl Hct 45.0 (42.0-52.0) % MCV 83.5 (80.0-98.0) fL MCH 27.5 (27.0-33.0) pg MCHC 32.9 (31.0-36.0) g/dl RDW 13.8 (11.0-16.0) % Plt Count 233 (160-400) X10*3/uL MPV 12.8 H (9.4-12.4) fL Immature Gran % (Auto) 0.6 H (0.0-0.4) % Neut % (Auto) 55.9 (45-73) % Lymph % (Auto) 34.3 (20-40) % [place] % (Auto) 6.7 (2-11) % Eos % (Auto) 1.6 (0-4) % Baso % (Auto) 0.9 (0-2) % Lymph # (Auto) 2.7 (1.2-4.9) X10*3/uL [place] # (Auto) 0.5 (0.1-1.2) X10*3/uL Eos # (Auto) 0.1 (0.0-0.4) X10*3/uL Baso # (Auto) 0.1 (0.0-0.2) X10*3/uL Abs Immat Gran (auto) 0.05 H (0.00-0.03) X10*3/uL Absolute Neuts (auto) 4.4 (2.0-8.3) x10*3/uL Absolute Nucleated RBC 0.000 (0.0-0.012) X10*3/uL Nucleated RBC % (auto) 0.0 (0.0-0.2) /100WBC Sodium (135-145) mmol/L Potassium (3.3-5.1) mmol/L Chloride (96-108) mmol/L Carbon Dioxide (22-29) mmol/L Anion Gap (12-20) BUN (9-16) mg/dL Creatinine (0.5-1.4) mg/dL Estim Creat Clear Calc Estimated GFR POC Glucose 141 H (60-115) mg/dL Random Glucose (60-115) mg/dL Calcium (8.4-10.2) mg/dL Magnesium (1.6-2.6) mg/dL Total Bilirubin (0.0-1.0) mg/dL AST (5-37) U/L ALT (0-40) U/L Alkaline Phosphatase (39-117) U/L Total Protein (6.5-8.0) g/dL Albumin (3.5-5.0) g/dL Lipase (8-78) U/L Urine Color Yellow Urine Appearance Clear Urine pH 6.5 (5.0-9.0) Ur Specific [place] 1.010 (1.005-1.025) Urine Protein Negative (Neg-Trace) mg/dL Urine Glucose (UA) 100 H (Negative) mg/dL Urine Ketones Negative (Negative) mg/dL Urine Blood Negative (Negative) Urine Nitrite Negative (Negative) Ur Leukocyte Esterase Negative (Negative) 04/02/23 Range/Units 11:18 WBC (4.8-10.8) X10*3/uL RBC (4.60-5.80) X10*6/uL Hgb (14.0-18.0) g/dl Hct (42.0-52.0) % MCV (80.0-98.0) fL MCH (27.0-33.0) pg MCHC (31.0-36.0) g/dl RDW (11.0-16.0) % Plt Count (160-400) X10*3/uL MPV (9.4-12.4) fL Immature Gran % (Auto) (0.0-0.4) % Neut % (Auto) (45-73) % Lymph % (Auto) (20-40) % [place] % (Auto) (2-11) % Eos % (Auto) (0-4) % Baso % (Auto) (0-2) % Lymph # (Auto) (1.2-4.9) X10*3/uL [place] # (Auto) (0.1-1.2) X10*3/uL Eos # (Auto) (0.0-0.4) X10*3/uL Baso # (Auto) (0.0-0.2) X10*3/uL Abs Immat Gran (auto) (0.00-0.03) X10*3/uL Absolute Neuts (auto) (2.0-8.3) x10*3/uL Absolute Nucleated RBC (0.0-0.012) X10*3/uL Nucleated RBC % (auto) (0.0-0.2) /100WBC Sodium 141 (135-145) mmol/L Potassium 3.8 (3.3-5.1) mmol/L Chloride 107 (96-108) mmol/L Carbon Dioxide 24 (22-29) mmol/L Anion Gap 14 (12-20) BUN 12 (9-16) mg/dL Creatinine 1.17 (0.5-1.4) mg/dL Estim Creat Clear Calc 72.6 Estimated GFR > 60 POC Glucose (60-115) mg/dL Random Glucose 135 H (60-115) mg/dL Calcium 10.6 H (8.4-10.2) mg/dL Magnesium 1.5 L (1.6-2.6) mg/dL Total Bilirubin 0.5 (0.0-1.0) mg/dL AST 33 (5-37) U/L ALT 23 (0-40) U/L Alkaline Phosphatase 66 (39-117) U/L Total Protein 8.9 H (6.5-8.0) g/dL Albumin 4.8 (3.5-5.0) g/dL Lipase 154 H (8-78) U/L Urine Color Urine Appearance Urine pH (5.0-9.0) Ur Specific [place] (1.005-1.025) Urine Protein (Neg-Trace) mg/dL Urine Glucose (UA) (Negative) mg/dL Urine Ketones (Negative) mg/dL Urine Blood (Negative) Urine Nitrite (Negative) Ur Leukocyte Esterase (Negative) Independent Interpretation I performed an independent interpretation of an: CT Scan ( CT scan abdomen pelvis without IV contrast reviewed by myself no acute findings only chronic changes this is my independent interpretation agreeable with radiologist report) Radiology Impression Discussion of test interpretation with radiology: I have reviewed the radiologist's reading. Radiologist Impression: FINDINGS: Visualized lung bases are well aerated. Again demonstrated is a 4 mm lingular pulmonary nodule. The liver is normal in size but demonstrates diffusely decreased attenuation. The gallbladder is surgically absent. Atrophy of the pancreatic head with similar mild dilatation of the proximal pancreatic duct. Several coarse calcifications are also again appreciated within the pancreatic head area there is no peripancreatic stranding. The spleen is normal in size. Symmetrically sized kidneys. There are a few tiny nonobstructing calculi within the left kidney, largest measuring approximately 3 mm. No right-sided renal calculi identified. No hydronephrosis of either kidney. Normal distention of the stomach. Normal caliber loops of small and large bowel. Mild colonic stool burden. Normal appendix. Normal caliber abdominal aorta. No retroperitoneal lymphadenopathy. The bladder is relatively decompressed and therefore not optimally characterized. There is mild diffuse bladder wall thickening which may be secondary to the bladder is decompressed state. The prostate gland is at the upper limits of normal in size. There is no gross free pelvic fluid. No inguinal lymphadenopathy. Degenerative changes of the spine. CT/CT abdomen pelvis wo IV con IMPRESSION: 1.? There are a few tiny nonobstructing calculi within the left kidney. No right-sided renal calculi identified. No hydronephrosis of either kidney. 2.? Diffusely decreased liver attenuation suggesting hepatic steatosis. Correlation with liver enzymes recommended. 3.? Atrophy of the pancreatic head with similar mild dilatation of the proximal pancreatic duct. Several coarse calcifications are also again appreciated within the pancreatic head area. Findings are nonspecific but likely represent sequela of chronic pancreatitis. ? Fleischner guidelines were followed. Independent Historian Clinical information obtained from an independent historian. History obtained from or confirmed by: Spouse External Record Review External record reviewed: Inpatient record, Office record, Outpatient record, Prior outpatient labs, Prior outpatient radiology, Primary care record and Outside ED record all prior labs/imaging / EKG and notes accessible in our system reviewed by myself Prescription Management I considered prescription management with: Pain Medication Chronic Conditions Patient?s care impacted by: Diabetes and Hypertension Social Determinants Patient?s care significantly limited by Social Determinants of Health including: Low income and Other Social Determinant of Health Discharge Plan Discharge Clinical Impression: Chronic back pain, Left lumbar radiculitis, Low blood magnesium level Patient Disposition: Home, Self-Care Instructions: Lumbar Radiculopathy (ED), Chronic Back Pain (DC), Lower Back Exercises (ED) Prescriptions: New prednisone 20 mg tablet 20 mg PO DAILY 5 Days Qty: 5 0RF hydromorphone [Dilaudid] 2 mg tablet 2 mg PO Q6H PRN (Reason: pain) Qty: 4 0RF Rx Instructions: Partial Fill upon patient request. No Action oxycodone 5 mg tablet 5 mg PO Q6H PRN (Reason: pain) Qty: 14 0RF alprazolam [Xanax] 1 mg tablet 1 mg PO BID 1 Days Qty: 2 0RF Rx Instructions: Please take 1 tab at bedtime the night before MRI scan appointment. Take the 2nd tablet in the morning 6 hours before MRI scan if needed. Creon 12,000-38,000 -60,000 unit capsule,delayed release(DR/EC) 2 cap PO TID 60 Days Qty: 360 2RF pioglitazone 15 mg tablet 1 tab PO BID tizanidine 4 mg tablet 1 tab PO TID sumatriptan succinate 100 mg tablet 100 mg PO DAILY PRN (Reason: Migraine Headache) omeprazole 40 mg capsule,delayed release(DR/EC) 1 cap PO DAILY nortriptyline 25 mg capsule 25 cap PO BEDTIME zolpidem 10 mg tablet 10 tab PO BEDTIME PRN (Reason: Insomnia) fluoxetine 20 mg capsule 1 cap PO DAILY rosuvastatin 40 mg tablet 1 tab PO DAILY oxycodone 10 mg tablet 1 tab PO QID PRN (Reason: Pain) fenofibrate 54 mg tablet 2 tab PO DAILY Emgality Pen 120 mg/mL pen injector 1 mg subcut Q4W ondansetron 4 mg tablet,disintegrating 1 tab PO Q8H PRN (Reason: Nausea And Vomiting) cholecalciferol (vitamin D3) 25 mcg (1,000 unit) capsule 25 mcg PO DAILY docusate sodium 100 mg capsule 100 mg PO BID PRN esomeprazole magnesium [Nexium] 20 mg capsule,delayed release(DR/EC) 20 mg PO DAILY 90 Days Qty: 90 0RF Adult 50 Plus Probiotic 4 billion cell capsule 4,000 mmu cells PO DAILY 90 Days Qty: 90 1RF Rx Instructions: administer with a meal Referrals: Alfa Saeed MD [Primary Care Provider] - Print Language: [place]
[2023-04-02] MEDS: Magnesium Oxide 400 MG TABLET 800 MG PO (12:23)
== END 2023-04-02 12:33 | disposition home or self-care (01) ==
PROVIDERS: Physician Assistant Medical; Emergency Provider Emergency Medicine Emergency Medical Services; PCP Family Medicine
DX: G89.29 Other chronic pain (principal); M54.50 Low back pain, unspecified; M54.16 Radiculopathy, lumbar region; E83.42 Hypomagnesemia; Z79.891 Long term (current) use of opiate analgesic; Z79.899 Other long term (current) drug therapy
CPT/HCPCS: 36415; 74176; 80053; 81003; 82947; 83690; 83735; 85025; 96372; 99284; J1170

== ENCOUNTER 2023-06-24 11:09 | Outpatient (AMB) | payer MEDICARE, MEDICAID, SELFPAY ==
--- NOTE | 2023-06-24 11:15 | A.OFFVIS_ITS ---
Intake Vital Signs 06/24/23 11:17 Height 5 ft 4 in Weight 174 lb BMI 29.9 BP 116/65 Blood Pressure Location Lt brachial Position Sitting Pulse 104 H Intake Visit Reasons: 4 month fu Intake Note: Patient follow up for Cholelitiasis. Patient cc: acid reflex on abd off and denies any other GI issues. 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 Accompanied by: Family/Other Allergies gabapentin [GABAPENTIN] Allergy (Mild, Verified 06/24/23 11:15) RASH famotidine [From Pepcid] Allergy (Unknown, Verified 06/24/23 11:15) RASH pregabalin [From LYRICA] Allergy (Unknown, Verified 06/24/23 11:15) VOMITING pantoprazole [From Protonix] Allergy (Verified 06/24/23 11:15) Rash ibuprofen [From Advil] Adverse Reaction (Unknown, Verified 06/24/23 11:15) STOMACH UPSET Medication List - Last Reconciled 06/24/23 by Onel Valdez MD alprazolam (Xanax) 1 mg PO BID 1 day cholecalciferol (vitamin D3) 25 mcg PO DAILY docusate sodium 100 mg PO BID PRN dulaglutide (Trulicity) 0.75 mg subcut QWEEK fenofibrate 2 tabs PO DAILY fluoxetine 1 cap PO DAILY galcanezumab-gnlm (Emgality Pen) 1 mg subcut Q4W hydromorphone (Dilaudid) 2 mg PO Q6H PRN lactobacillus combination no.9 (Adult 50 Plus Probiotic) 4,000 mmu cells PO DAILY 90 days mwswny-vcxhcoix-oqttlem 12,000-38,000 -60,000 unit (Creon) 2 caps PO TID 60 days magnesium oxide 500 mg PO DAILY nortriptyline 25 caps PO BEDTIME omeprazole 1 cap PO DAILY ondansetron 1 tab PO Q8H PRN oxycodone 1 tab PO QID PRN oxycodone 5 mg PO Q6H PRN pioglitazone 1 tab PO BID prednisone 20 mg PO DAILY 5 days rosuvastatin 1 tab PO DAILY sumatriptan succinate 100 mg PO DAILY PRN tizanidine 1 tab PO TID zolpidem 10 tabs PO BEDTIME PRN HPI 4 month fu HPI Details GI clinic visit for this 53-year-old male for follow-up of an episode of acute pancreatitis requiring hospitalization in November 2020.? Pt had an uneventful lap kaycee on 02/12/[address] Bonilla. IMAGING STUDIES:? 01/01/23 ABD MRI SHOWED: 1.? The pancreatic duct is dilated measu ring up to 0.6 cm in the pancreatic head and 0.4 cm in the pancreatic body. The distal most pancreatic duct in the pancreatic head is not able to be delineated as it extends up to the ampulla even on the thin slice images. The coarsened calcifications seen in this area on the prior CT scan are not able to be delineated on the MRI. I do not appreciate any suspicious enhancement within the pancreatic parenchyma. Overall the constellation of findings would be consistent with sequela of prior pancreatitis. I do not appreciate any evidence for acute pancreatitis. 2.? There is mild diffuse fatty infiltra tion of the liver. 06/10/[address] SCAN SHOWED: No acute CT findings. No evidence of acute pancreatitis. No pancreatic necrosis. Again seen are coarse calcifications in the head of the pancreas consistent with chronic calcific pancreatitis. ? Possible 1.2 cm cyst in the head of the pancreas. Recommend follow-up MRI of the abdomen including MRCP images in 6-12 months to assess stability. ENDOSCOPIC STUDIES:?Patient reports having an upper endoscopy and colonoscopy 3 years ago in [employer] and no polyps were detected. 2011 EUS was normal. TODAY'S VISIT: Abdominal pain comes and goes - notes pain if he does not eat and after he eats. Can increase to 10/10 in intensity at times. Feels bloated at times Taking pancreatic enzymes 2 capsules with each meals Eats rice and chicken Constipation on and off Tried Miralax in the past and caused abdominal pain 03/17/23 - diagnosed with cutaneous T jefry l lymphoma and treated with a steroid topical cream and phototherapy for 3 months Still using the cream He would like to schedule a colonoscopy Last colon 5 years ago at [facility] - polyps were removed Patient denies known family history of colon polyps or cancer. PAST VISITS: Has been eating less due to abdominal pain and bloating and loosing weight Taking dulcolax once a day for constipation and can have intermittent diarrhea. Blood sugars have been high. Eating once a day around 1:30 to 3 pm. Can wake up and eat something at night. Patient follow up for Cholelithiasis. Patient cc: abdominal bloating, acid reflex. Patient denies any other GI issues. Notes intermittent epigastric/LUQ pain radiating to the back after eating fired foods Pain is 5/10 and can last for 45 min. Pt notes nausea without vomiting when he has the pain. Intermittent diarrhea since Lap kaycee Everything is good. Can have intermittent heartburn related to diet. Appetite is good and weighs 185 lbs notes nausea, bloating and intermittent heartburn. Intermittent post prandial diarrhea twice a week. Takes Dulcolax once a day for constipation Taking Colace 2 capsules daily and Miralax three times a week for constipation. Abdominal pain has improved since the surgery Appetite is Ok and has 1 meal a day on some days. His weight has been stable. Complains of abd pain and nausea. Pain has improved to 4-5/10 (pain was 9-10/10 during hospitalization). Staying away from fried foods and sugar. Has lost some weight. Taking pancreatic enzyme 1 capsule with each meal. Denies recent change in bowel habits, constipation, diarrhea, black stools or rectal bleeding. Patient denies major cardiac or pulmonary problems, loud snoring or sleep apnea Denies problems with anesthesia in the past. Denies being on chronic anticoagulation. Patient denies known family history of pancreatic disease, colon polyps, colon cancer or other?GI?malignancy PFSH Medical History Depression Diabetes HTN (hypertension) Kidney stone Migraine Pancreatitis Surgical History S/P laparoscopic cholecystectomy (02/12/21) History of elbow surgery Hx of endoscopy Hx of colonoscopy H/O neck surgery Social History Household Members: Spouse Housing: Apartment Do you presently have visiting nurse or other home services: No Alcohol intake: never Patient Tobacco Use Status: Never used Tobacco Second Hand Smoke Exposure: No Advance Directives Date on File: 12/19/20 service: No Current occupational status: disabled Review of Systems Const All systems reviewed & are unremarkable except as noted in HPI and below Physical Exam Const General: healthy appearing and no acute distress Nutritional Appearance: overweight Orientation/consciousness: patient oriented x3 Limitations: no limitations HEENT Head: Yes normal to inspection Ears: hearing grossly normal bilaterally Eyes Sclerae: sclerae normal Pupils: Equal, round and reactive pupils present Neck Neck: Yes normal visual inspection Chest Chest palpation & inspection: normal inspection of the chest Resp Effort & Inspection: normal respiratory effort Auscultation: clear to auscultation bilaterally Cardio Palpation: normal PMI Rate: regular rate Rhythm: regular rhythm Heart sounds: S1 normal heart sound present, S2 normal heart sound present and no murmurs GI Palpation (GI): Soft to palpation, nontender and No hepatosplenomegaly present Auscultation: normal bowel sounds Rectal Exam - Male: Yes deferred Skin General skin exam: no rashes or lesions noted Neuro General: patient oriented x3, gait normal and moves all extremities Cranial nerves: Yes Equal, round and reactive pupils present Psych Appearance: grossly normal Mental Status: mental status grossly normal Assessment & Plan Assessment & Plan (1) Cholelithiasis: Comment: status post Lap Kaycee by Dr. Bonilla in 01/2021 Code(s): K80.20 - Calculus of gallbladder without cholecystitis without obstruction (2) Pancreatitis: Code(s): K85.90 - Acute pancreatitis without necrosis or infection, unspecified (3) Abdominal bloating: Code(s): R14.0 - Abdominal distension (gaseous) (4) Chronic constipation: Code(s): K59.09 - Other constipation Plan 53 YM with DM, hyperlipidemia, GERD, depression, HAs, chronic back pain hospitalized in 11/2020 with nausea, abdominal pain and elevated lipase due to acute on chronic pancreatitis. Abdominal CT scan showed an ill-defined fluid collection is present along the anterior aspect of the pancreas extending into the small bowel mesentery with normal enhancement and no necrosis. A few small scattered calcifications are present within the head of the pancreas without dilatation of the pancreatic duct. Patient gave a history of recurrent episodes of pancreatitis over the past 12-15 years.? Pancreatitis was attributed to hypertriglyceridemia (reported to have triglyceride levels of >1000) Triglycerides were 100 on last admission.? Presence of pancreatic calcifications are suggestive of underlying chronic pancreatitis. Pt had an uneventful lap kaycee on 02/12/[address] Bonilla?to prevent future episodes of pancreatitis - since pancreatitis was felt to be due to undiagnosed biliary microlithiasis. Continue Omeprazole 40 mg daily for GERD and Creon with meals. Pt was advised to FU with PCP (Dr Saleh [phone]) regarding an increase in Triglycerides to > 200 in 07/2021 (lab reports faxed to PCP's office). 01/01/23 MRI of the abdomen was done and findings as noted above. 06/24/23 Pt advised to increase Omeprazole to twice daily and start Linzess 145 mcg daily for constipation. Patient will be scheduled for an upper endoscopy (upper abdominal pain) and a colonoscopy (surveillance for colon polyps). FU in 4 months. Medications: New linaclotide (Linzess) 145 mcg PO QAM 30 days 30 caps 3RF K59.09 - Other constipation polyethylene glycol 3350 (Miralax) Mix Miralax with 64 oz(8 cups) of Crystal light. Take 2 tablets of Dulcolax qt 12 pm. Wait to have your 1st bowel movement, then begin drinking Miralax. Drink a glass of Miralax every 10-15 minutes until you are finished. You will drink at least another 4 cups of clear liquid of your choice over the next 2 hours. Please drink as many clear liquids as possible You may have clear liquids up to four hours before your procedure 17 grams PO DAILY 1 day 238 grams 0RF colon prep Changed From omeprazole 1 cap PO DAILY To omeprazole 40 mg PO BID 60 days 120 caps 1RF Coding Level of Care Code Est Pt Level 4 (16681) Diagnoses Cholelithiasis K80.20 Pancreatitis K85.90 Abdominal bloating R14.0 Chronic constipation K59.09 Time Spent (min) 25
[2023-06-24 11:17] VITALS: BP 116/65; PULSE 104; BMI 29.9
== END 2023-06-24 12:54 | disposition home or self-care (01) ==
PROVIDERS: PCP Family Medicine; Visit Provider Internal Medicine Gastroenterology
DX: K80.20 Calculus of gallbladder without cholecystitis without obstruction (principal); K85.90 Acute pancreatitis without necrosis or infection, unspecified; R14.0 Abdominal distension (gaseous); K59.09 Other constipation
CPT/HCPCS: 99214

== ENCOUNTER → 2023-06-24 11:09 | Outpatient (BNVA) | payer MEDICARE, MEDICAID, SELFPAY | PROVIDERS: PCP Family Medicine; Visit Provider Internal Medicine Gastroenterology | DX: K80.20 Calculus of gallbladder without cholecystitis without obstruction (principal); K85.90 Acute pancreatitis without necrosis or infection, unspecified; R14.0 Abdominal distension (gaseous); K59.09 Other constipation | CPT/HCPCS: 99212 ==

== ENCOUNTER 2023-10-08 09:58 | Day surgery (SDC) | payer MEDICARE, MEDICAID, SELFPAY ==
[2023-10-06 10:40] VITALS: BMI 29.9
--- NOTE | 2023-10-07 09:02 | P.CONAN_ITS ---
Documented by User: Taylor Salvador NP 10/07/23 09:03 HPI - Anesthesia Eval Consult details Narrative: 53yo M for Upper Endoscopy and Colonoscopy Anesthesia Pre-Procedure Meds Is the patient on any of the following meds?: Dulaglutide (Trulicity) PMFSH Active Problems Active Problems: All Active Problems (Updated 10/06/23 @ 10:37 by Farzana Kemp RN) Chronic constipation (Acute) Abdominal bloating (Acute) Anxiety (Acute) Cholelithiasis (Acute) Pancreatitis (Acute) Past Medical History Medical History (Updated 10/06/23 @ 10:37 by Farzana Kemp RN) Diabetes Kidney stone Pancreatitis Migraine HTN (hypertension) Depression Family History Family history of problems with anesthesia: No Surgical History Surgical History (Updated 10/08/23 @ 10:34 by Margie Real) S/P laparoscopic cholecystectomy (02/12/21) History of elbow surgery Hx of endoscopy Hx of colonoscopy H/O neck surgery History of Problems with Anesthesia: No Social History Social History Household Members: Spouse Housing: Apartment Do you presently have visiting nurse or other home services: No Alcohol intake: never Patient Tobacco Use Status: Never used Tobacco Second Hand Smoke Exposure: No Use of substances other than those prescribed or required for medical reasons: No Are you DNR?: No Advance Directives: No Advance Directives Information Provided: Yes Advance Directives Date on File: 12/19/20 service: No Current occupational status: disabled Meds Allergies Allergy/AdvReac Type Severity Reaction Status Date / Time gabapentin [GABAPENTIN] Allergy Mild RASH Verified 10/08/23 10:34 famotidine [From Pepcid] Allergy Unknown RASH Verified 10/08/23 10:34 pregabalin [From LYRICA] Allergy Unknown VOMITING Verified 10/08/23 10:34 pantoprazole [From Protonix] Allergy Rash Verified 10/08/23 10:34 ibuprofen [From Advil] AdvReac Unknown STOMACH Verified 10/08/23 10:34 UPSET Home Medications Medication Instructions Recorded Confirmed Last Taken Type fenofibrate 54 mg tablet 2 tab PO DAILY 12/08/20 10/08/23 Unknown History fluoxetine 20 mg capsule 1 cap PO DAILY 12/08/20 10/08/23 Unknown History galcanezumab-gnlm 120 mg/mL 1 mg subcut Q4W 12/08/20 10/08/23 11/29/20 History subcutaneous pen injector (Emgality Pen) nortriptyline 25 mg capsule 25 cap PO BEDTIME 12/08/20 10/08/23 Unknown History ondansetron 4 mg disintegrating 1 tab PO Q8H PRN Nausea And 12/08/20 10/08/23 Unknown History tablet Vomiting oxycodone 10 mg tablet 1 tab PO QID PRN Pain 12/08/20 10/08/23 Unknown History pioglitazone 15 mg tablet 1 tab PO BID 12/08/20 10/08/23 Unknown History rosuvastatin 40 mg tablet 1 tab PO DAILY 12/08/20 10/08/23 Unknown History sumatriptan succinate 100 mg tablet 100 mg PO DAILY PRN Migraine 12/08/20 10/08/23 Unknown History Headache tizanidine 4 mg tablet 1 tab PO TID 12/08/20 10/08/23 Unknown History zolpidem 10 mg tablet 10 tab PO BEDTIME PRN Insomnia 12/08/20 10/08/23 Unknown History cholecalciferol (vitamin D3) 25 25 mcg PO DAILY 11/27/21 10/08/23 Unknown History mcg (1,000 unit) capsule docusate sodium 100 mg capsule 100 mg PO BID PRN Constipation 05/28/22 10/08/23 Unknown History dulaglutide 0.75 mg/0.5 mL 0.75 mg subcut QWEEK 06/24/23 10/08/23 09/30/23 History subcutaneous pen injector (Trulicity) Exam Height,Weight and Vital Signs: Height 5 ft 4 in Weight 78.925 kg Assessment and Plan Assessment Anesthesia Assessment: Chart Reviewed Final Anesthetic Review Family History of Problems with Anesthesia: No History of Problems with Anesthesia: No Documented by User: Petrona Tinoco MD 10/08/23 11:59 HPI - Anesthesia Eval Anesthesia Pre-Procedure Meds If Yes to any meds - educate patient: Pt education - increased risk of aspiration and Pt education - possibility of cancelled proc at provider's discretion [facility] Past Medical History Medical History (Updated 10/06/23 @ 10:37 by Farzana Kemp RN) Diabetes Kidney stone Pancreatitis Migraine HTN (hypertension) Depression Surgical History Surgical History (Updated 10/08/23 @ 10:34 by Margie Real) S/P laparoscopic cholecystectomy (02/12/21) History of elbow surgery Hx of endoscopy Hx of colonoscopy H/O neck surgery Social History Social History Household Members: Spouse Housing: Apartment Do you presently have visiting nurse or other home services: No Alcohol intake: never Patient Tobacco Use Status: Never used Tobacco Second Hand Smoke Exposure: No Use of substances other than those prescribed or required for medical reasons: No Are you DNR?: No Advance Directives: No Advance Directives Information Provided: Yes Advance Directives Date on File: 12/19/20 service: No Current occupational status: disabled Meds Allergies Allergy/AdvReac Type Severity Reaction Status Date / Time gabapentin [GABAPENTIN] Allergy Mild RASH Verified 10/08/23 10:34 famotidine [From Pepcid] Allergy Unknown RASH Verified 10/08/23 10:34 pregabalin [From LYRICA] Allergy Unknown VOMITING Verified 10/08/23 10:34 pantoprazole [From Protonix] Allergy Rash Verified 10/08/23 10:34 ibuprofen [From Advil] AdvReac Unknown STOMACH Verified 10/08/23 10:34 UPSET Home Medications Medication Instructions Recorded Confirmed Last Taken Type fenofibrate 54 mg tablet 2 tab PO DAILY 12/08/20 10/08/23 Unknown History fluoxetine 20 mg capsule 1 cap PO DAILY 12/08/20 10/08/23 Unknown History galcanezumab-gnlm 120 mg/mL 1 mg subcut Q4W 12/08/20 10/08/23 11/29/20 History subcutaneous pen injector (Emgality Pen) nortriptyline 25 mg capsule 25 cap PO BEDTIME 12/08/20 10/08/23 Unknown History ondansetron 4 mg disintegrating 1 tab PO Q8H PRN Nausea And 12/08/20 10/08/23 Unknown History tablet Vomiting oxycodone 10 mg tablet 1 tab PO QID PRN Pain 12/08/20 10/08/23 Unknown History pioglitazone 15 mg tablet 1 tab PO BID 12/08/20 10/08/23 Unknown History rosuvastatin 40 mg tablet 1 tab PO DAILY 12/08/20 10/08/23 Unknown History sumatriptan succinate 100 mg tablet 100 mg PO DAILY PRN Migraine 12/08/20 10/08/23 Unknown History Headache tizanidine 4 mg tablet 1 tab PO TID 12/08/20 10/08/23 Unknown History zolpidem 10 mg tablet 10 tab PO BEDTIME PRN Insomnia 12/08/20 10/08/23 Unknown History cholecalciferol (vitamin D3) 25 25 mcg PO DAILY 11/27/21 10/08/23 Unknown History mcg (1,000 unit) capsule docusate sodium 100 mg capsule 100 mg PO BID PRN Constipation 05/28/22 10/08/23 Unknown History dulaglutide 0.75 mg/0.5 mL 0.75 mg subcut QWEEK 06/24/23 10/08/23 09/30/23 Histo ry subcutaneous pen injector ([facility]) Exam Airway Mallampati Class: II TM Dist: >3cm Neck ROM: Full Heart: rrr Lungs: cta Assessment and Plan Assessment Anesthesia Assessment: Anesthesia Plan Discussed Final Anesthetic Review NPO: Yes ASA Class: II Final Preanesthetic Review: No Changes in Pt Med Stat, Meds/Allgs Chart Reviewed and Consent Obtained/Reviewed Patient Risk: Low Procedure Risk: Intermediate Anesthetic Plan Anesthetic Plan: MAC: Disposition: Standard PACU
[2023-10-08 10:39] VITALS: BP 144/98; PULSE 120; RESP 16; TEMP 36.5; O2SAT 95; BMI 30.6
[2023-10-08 10:44] LABS: Glucose, Whole Blood 159 mg/dL (60-115)
--- NOTE | 2023-10-08 10:50 | MHC.SHP ---
Pre-Procedural Eval Section A - 24 Hr Update-Section A only Date of Service: 10/08/23 The patient is an INPATIENT: No The patient has been examined within 24 hours of the surgical procedure. The History & Physical has been completed within 30 days and I have reviewed it.: No Section B - Complete if H&P > 30 days Chief Complaint: Surveillance for colon polyps, abdominal pain Relevant Family History (Specify if Yes): No Relevant Social History: None Present Medications: see Short Stay Collaborative assessment Medical History: Significant History (Depression Diabetes HTN (hypertension) Kidney stone Migraine Pancreatitis) History of Previous Operations: Relevant previous surgery/procedure and date(s) (S/P laparoscopic cholecystectomy (02/12/21) History of elbow surgery Hx of endoscopy Hx of colonoscopy H/O neck surgery) Allergies: Allergies Allergy/AdvReac Type Severity Reaction Status Date / Time gabapentin [GABAPENTIN] Allergy Mild RASH Verified 10/08/23 10:34 famotidine [From Pepcid] Allergy Unknown RASH Verified 10/08/23 10:34 pregabalin [From LYRICA] Allergy Unknown VOMITING Verified 10/08/23 10:34 pantoprazole [From Protonix] Allergy Rash Verified 10/08/23 10:34 ibuprofen [From Advil] AdvReac Unknown STOMACH Verified 10/08/23 10:34 UPSET Review of Systems Sugical H&P ROS: Negative: Constitution, Cardiovascular, Respiratory and Gastrointestinal Exam Surgical H&P Exam: Normal: Heart, Normal: Lungs, Normal: Extremities and Normal: Abdomen Plan Diagnosis/Plan: Unchanged I have reviewed the history and physical and performed a pertinent physical examination on my patient. No changes have occurred unless specified. Time Spent With Patient Time: Total time managing care of this patient today ____ minutes.
[2023-10-08] MEDS: Lactated Ringers 1,000 ML 100 ML IVCONT (11:01)
--- NOTE | 2023-10-08 11:45 | W.PM.OPN ---
Operative Note Operative Note Date of Service: 10/08/23 Narrative: FLEXIBLE TRANSORAL UPPER GASTROINTESTINAL ENDOSCOPY WITH BIOPSIES AND COLONOSCOPY TILL CECUM WITH BIOPSY, SNARE POLYPECTOMY AND HEMOCLIP PLACEMENT Pre-op diagnosis: Surveillance of colon polyps, abdominal pain Post-op diagnosis: Gastritis, colon polyps, diverticulosis, hemorrhoids? Endoscopist:? Onel Valdez MD Anesthesia:?MAC UPPER ENDOSCOPY Consent: Indications for the procedure and potential complications of bleeding, perforation, reaction to medications and missed diagnosis were discussed with the patient and informed consent was obtained. Instrument: Olympus GIF H 190 mid size upper endoscope Monitoring: Vital signs and clinical assessment, continuous EKG monitoring, Pulse oximetry, Carbon Dioxide monitoring and blood pressure monitoring were done throughout the procedure. Procedure: The patient was placed in the left lateral decubitis position and pre-procedure medications were administered and a bite block was placed. The endoscope was inserted into the mouth and advanced under direct vision to the third part of duodenum. A careful inspection was made as the upper endoscope was withdrawn including a retroflexed examination of the proximal stomach; Findings and interventions are described below. Findings: Larynx: Normal Esophagus: GE junction at 36 cms. No esophagitis or Uribe's. Stomach: Moderate diffuse gastric erythema. Biopsies were obtained from the antrum and body of the stomach. A 7-8 mm benign appearing polyp in the fundus and Grade 2 flap valve on retroflexed examination of the cardia. (Polyp was not accessible for biopsies) Duodenum: Normal bulb and descending duodenum. Biopsies were obtained to check for celiac sprue Intervention: Biopsies as noted above COLONOSCOPY PROCEDURE NOTE Consent: Indications for the procedure and potential complications of bleeding, perforation, reaction to medications and missed diagnosis were discussed with the patient and informed consent was obtained. Instrument: Olympus PCF H 190 L variable stiffness pediatric colonoscope Monitoring: Vital signs and clinical assessment, intermittent blood pressure monitoring, continuous EKG monitoring, Pulse oximetry and Carbon Dioxide monitoring were done throughout the procedure. Colon withdrawl time was 17 minutes. Procedure: The patient was placed in the left lateral decubitis position and pre-procedure medications were administered. After a digital rectal examination of the ano-rectum, the video colonoscope was inserted into the rectum and advanced through the colon to the cecum. The colonoscope was slowly withdrawn in a retrograde panoramic fashion and the colon mucosa was carefully examined including a retroflexed view of the rectum. Findings and interventions are described below. Procedure Difficulty: Colon was long and there was some loop formation Findings: Terminal Ileum: Not evaluated Cecum: Normal Ascending Colon: Normal Transverse Colon: An 8 to 9 mm sessile polyp in the midtransverse colon - removed with a cold snare Descending Colon: Normal Sigmoid Colon: A 3-4 mm sessile polyp - removed with a cold biopsy. Some bleeding noted from the biopsy site - 1 hemoclip was placed with cessation of bleeding. Moderate diverticulosis Rectum: Normal Ano-rectum: Moderate internal hemorrhoids Colon preparation: Good after some irrigation Impression and Post Procedure Diagnosis: Endoscopy Findings: STOMACH: Moderate diffuse gastric erythema. Biopsies were obtained from the antrum and body of the stomach. A 7-8 mm benign appearing polyp in the fundus and Grade 2 flap valve on retroflexed examination of the cardia. (Polyp was not accessible for biopsies) DUODENUM: Normal - biopsied to check for celiac sprue Colonoscopy Findings: Two small polyps removed Moderate diverticulosis seen in the sigmoid colon Moderate hemorrhoids on retroflexed exam. Plan: Await pathology results Patient has an appointment on 10/28/23 in the GI Clinic with Onel Valdez M.D. Repeat Colonoscopy interval based on path results - in 5 years if polyps are adenomatous and due to history of colon polyps. Above findings were reviewed with the patient and colon polyps and diverticulosis handouts were given in the discharge area BIOPSIES SHOWED: A. Small bowel, biopsy: Small-bowel/duodenal mucosa with preserved villi and no specific change; no evidence of celiac disease. B. Gastric antrum, biopsy: Gastric antral mucosa with focal minimal chronic inactive inflammation; negative for H pylori, intestinal metaplasia and dysplasia. C. Gastric body, biopsy: Gastric body mucosa with focal minimal chronic inactive inflammation; negative for H pylori, intestinal metaplasia and dysplasia. D. Colon, transverse, polyp: Colonic mucosa with minor hyperplastic changes on initial levels (see comment). E. Colon, sigmoid, polyp: Colonic mucosa with no specific change on initial levels
[2023-10-08 13:03] VITALS: BP 129/78; PULSE 100; RESP 18; TEMP 36.1; O2SAT 97
[2023-10-08 13:18] VITALS: BP 157/70; PULSE 97; RESP 14; O2SAT 98
[2023-10-08 13:31] VITALS: BP 129/83; PULSE 96; RESP 16; TEMP 36.2; O2SAT 99
== END 2023-10-08 13:49 | disposition home or self-care (01) ==
PROVIDERS: PCP Family Medicine; Visit Provider Internal Medicine Gastroenterology
PROC: (CPT 43239; principal; 2023-10-08 12:10)
DX: K29.60 Other gastritis without bleeding (principal); K31.7 Polyp of stomach and duodenum; Z12.11 Encounter for screening for malignant neoplasm of colon; K63.5 Polyp of colon; K56.2 Volvulus; K57.30 Diverticulosis of large intestine without perforation or abscess without bleeding; K64.8 Other hemorrhoids; E11.9 Type 2 diabetes mellitus without complications; I10 Essential (primary) hypertension; Z79.899 Other long term (current) drug therapy; Z79.85 Long-term (current) use of injectable non-insulin antidiabetic drugs; Z79.02 Long term (current) use of antithrombotics/antiplatelets
CPT/HCPCS: 43239; 45385; 45380; 82947; 88305; 88313; 88342; J2405; J2704; J3010

== ENCOUNTER → 2023-10-08 09:58 | Outpatient (BNV) | payer MEDICARE, MEDICAID, SELFPAY | PROVIDERS: PCP Family Medicine; Visit Provider Internal Medicine Gastroenterology | DX: Z12.11 Encounter for screening for malignant neoplasm of colon (principal); K63.5 Polyp of colon; K57.90 Diverticulosis of intestine, part unspecified, without perforation or abscess without bleeding; Z86.010 Personal history of colon polyps; K31.7 Polyp of stomach and duodenum | CPT/HCPCS: 43239; 45385 ==

== ENCOUNTER 2023-10-28 10:03 | Outpatient (AMB) | payer MEDICARE, MEDICAID, SELFPAY ==
--- NOTE | 2023-10-28 10:11 | MHC.OFFVIS ---
Intake Vital Signs 10/28/23 10:12 Height 5 ft 4 in Weight 176 lb BMI 30.2 BP 120/65 Blood Pressure Location Lt brachial Position Sitting Pulse 107 H Intake Visit Reasons: s/P double; Dr. Valdez Intake Note: Patient follow up for EGD/Colonoscopy results. Patient denies any ALBER issues. 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 Required: No Accompanied by: Spouse Allergies gabapentin [GABAPENTIN] Allergy (Mild, Verified 10/28/23 10:11) RASH famotidine [From Pepcid] Allergy (Unknown, Verified 10/28/23 10:11) RASH pregabalin [From LYRICA] Allergy (Unknown, Verified 10/28/23 10:11) VOMITING pantoprazole [From Protonix] Allergy (Verified 10/28/23 10:11) Rash ibuprofen [From Advil] Adverse Reaction (Unknown, Verified 10/28/23 10:11) STOMACH UPSET Medication List - Last Reconciled 10/28/23 by Onel Vladez MD cholecalciferol (vitamin D3) 25 mcg PO DAILY docusate sodium 100 mg PO BID PRN dulaglutide (Trulicity) 0.75 mg subcut QWEEK fenofibrate 2 tabs PO DAILY fluoxetine 1 cap PO DAILY galcanezumab-gnlm (Emgality Pen) 1 mg subcut Q4W lactobacillus combination no.9 (Adult 50 Plus Probiotic) 4,000 mmu cells PO DAILY 90 days linaclotide (Linzess) 145 mcg PO QAM 90 days qwineo-dnvncrug-wfhynwe 12,000-38,000 -60,000 unit (Creon) 2 caps PO TID 90 days magnesium oxide 500 mg PO DAILY nortriptyline 25 caps PO BEDTIME omeprazole 40 mg PO BID 60 days ondansetron 1 tab PO Q8H PRN oxycodone 1 tab PO QID PRN oxycodone 5 mg PO Q6H PRN pioglitazone 1 tab PO BID rosuvastatin 1 tab PO DAILY sumatriptan succinate 100 mg PO DAILY PRN tizanidine 1 tab PO TID zolpidem 10 tabs PO BEDTIME PRN HPI s/P double; Dr. Valdez HPI Details GI clinic visit for this 53-year-old male for follow-up after EGD and Colon Pt had an episode of acute pancreatitis requiring hospitalization in November 2020.? Pt had an uneventful lap kaycee on 02/12/[address] Bonilla. IMAGING STUDIES:? 01/01/23 ABD MRI SHOWED: 1.? The pancreatic duct is dilated measuring up to 0.6 cm in thepancreatic head and 0.4 cm in the pancreatic body. The distal most pancreatic duct in the pancreatic head is not able to be delineated as it extends up to the ampulla even on the thin slice images. The coarsened calcifications seen in this area on the prior CT scan are not able to be delineated on the MRI. I do not appreciate any suspicious enhancement within the pancreatic parenchyma. Overall the constellation of findings would be consistent with sequela of prior pancreatitis. I do not appreciate any evidence for acute pancreatitis. 2.? There is mild diffuse fatty infiltration of the liver. 06/10/[address] SCAN SHOWED:No acute CT findings. No evidence of acute pancreatitis. No pancreatic necrosis. Again seen are coarse calcifications in the head of the pancreas consistent with chronic calcific pancreatitis. ? Possible 1.2 cm cyst in the head of the pancreas. Recommend follow-up MRI of the abdomen including MRCP images in 6-12 months to assess stability. ENDOSCOPIC STUDIES:?10/08/23 EGD AND COLON SHOWED: Endoscopy Findings: STOMACH: Moderate diffuse gastric erythema. Biopsies were obtained from the antrum and body of the stomach. A 7-8 mm benign appearing polyp in the fundus and Grade 2 flap valve on retroflexed examination of the cardia. (Polyp was not accessible for biopsies) DUODENUM: Normal - biopsied to check for celiac sprue Colonoscopy Findings: Two small polyps removed Moderate diverticulosis seen in the sigmoid colon Moderate hemorrhoids on retroflexed exam. Plan: Repeat Colonoscopy interval based on path results - in 5 years if polyps are adenomatous and due to history of colon polyps. Above findings were reviewed with the patient and colon polyps and diverticulosis handouts were given in the discharge area BIOPSIES SHOWED: A. Small bowel, biopsy: Small-bowel/duodenal mucosa with preserved villi and no specific change; no evidence of celiac disease. B. Gastric antrum, biopsy: Gastric antral mucosa with focal minimal chronic inactive inflammation; negative for H pylori, intestinal metaplasia and dysplasia. C. Gastric body, biopsy: Gastric body mucosa with focal minimal chronic inactive inflammation; negative for H pylori, intestinal metaplasia and dysplasia.Patient reports having an upper endoscopy and colonoscopy 3 years ago in [place] and no polyps were detected. 2011 EUS was normal. TODAY'S VISIT: EGD and colon results reviewed. Notes intermittent nausea, abdominal and bloating daily - depneding on what he eats. Abdominal pain comes and goes - notes pain if he does not eat and after he eats. Taking one meal a day due to abd pain. Can increase to 10/10 in intensity at times. Feels bloated at times Taking pancreatic enzymes 2 capsules with each meals Eats rice and chicken Taking Linzess daily with improvement in constipation Tried Miralax in the past and caused abdominal pain PAST VISITS: 03/17/23 - diagnosed with cutaneous T cell lymphoma and treated with a steroid topical cream and phototherapy for 3 monthsStill using the cream He would like to schedule a colonoscopy Last colon 5 years ago at [facility] - polyps were removed Patient denies known family history of colon polyps or cancer. Has been eating less due to abdominal pain and bloating and loosing weight Taking dulcolax once a day for constipation and can have intermittent diarrhea. Blood sugars have been high. Eating once a day around 1:30 to 3 pm. Can wake up and eat something at night. Patient follow up for Cholelithiasis. Patient cc: abdominal bloating, acid reflex. Patient denies any other GI issues. Notes intermittent epigastric/LUQ pain radiating to the back after eating fired foods Pain is 5/10 and can last for 45 min. Pt notes nausea without vomiting when he has the pain. Intermittent diarrhea since Lap kaycee Everything is good. Can have intermittent heartburn related to diet. Appetite is good and weighs 185 lbs notes nausea, bloating and intermittent heartburn. Intermittent post prandial diarrhea twice a week. Takes Dulcolax once a day for constipation Taking Colace 2 capsules daily and Miralax three times a week for constipation. Abdominal pain has improved since the surgery Appetite is Ok and has 1 meal a day on some days. His weight has been stable. Complains of abd pain and nausea. Pain has improved to 4-5/10 (pain was 9-10/10 during hospitalization). Staying away from fried foods and sugar. Has lost some weight. Taking pancreatic enzyme 1 capsule with each meal. Denies recent change in bowel habits, constipation, diarrhea, black stools or rectal bleeding. Patient denies major cardiac or pulmonary problems, loud snoring or sleep apnea Denies problems with anesthesia in the past. Denies being on chronic anticoagulation. Patient denies known family history of pancreatic disease, colon polyps, colon cancer or other?GI?malignancy PFS Medical History (Updated 10/06/23 @ 10:37 by Farzana Kemp RN) Diabetes Kidney stone Pancreatitis Migraine HTN (hypertension) Depression Surgical History S/P laparoscopic cholecystectomy (02/12/21) History of elbow surgery Hx of endoscopy Hx of colonoscopy H/O neck surgery Social History Household Members: Spouse Housing: Apartment Do you presently have visiting nurse or other home services: No Alcohol intake: never Patient Tobacco Use Status: Never used Tobacco Second Hand Smoke Exposure: No Advance Directives Date on File: 12/19/20 service: No Current occupational status: disabled Review of Systems Const All systems reviewed & are unremarkable except as noted in HPI and below Physical Exam Vital Signs: Last Vital Signs Pulse 107 H 10/28/23 10:12 BP 120/65 10/28/23 10:12 BMI result Body Mass Index 0.3 Const General: healthy appearing and no acute distress Nutritional Appearance: obese Orientation/consciousness: patient oriented x3 Limitations: no limitations HEENT Head: Yes normal to inspection Ears: hearing grossly normal bilaterally Eyes Sclerae: sclerae normal Pupils: Equal, round and reactive pupils present Neck Neck: Yes normal visual inspection Chest Chest palpation & inspection: normal inspection of the chest Resp Effort & Inspection: normal respiratory effort Auscultation: clear to auscultation bilaterally Cardio Palpation: normal PMI Rate: regular rate Rhythm: regular rhythm Heart sounds: S1 normal heart sound present, S2 normal heart sound present and no murmurs GI Palpation (GI): Soft to palpation, Tenderness to palpation present (GI) (mild epigastric tenderness) and No hepatosplenomegaly present Auscultation: normal bowel sounds Rectal Exam - Male: Yes deferred Skin General skin exam: no rashes or lesions noted Neuro General: patient oriented x3, gait normal and moves all extremities Cranial nerves: Yes Equal, round and reactive pupils present Psych Appearance: grossly normal Mental Status: mental status grossly normal Assessment & Plan Assessment & Plan (1) Chronic constipation: Code(s): K59.09 - Other constipation (2) Abdominal bloating: Code(s): R14.0 - Abdominal distension (gaseous) (3) Cholelithiasis: Comment: status post Lap Kaycee by Dr. Bonilla in 01/2021 Code(s): K80.20 - Calculus of gallbladder without cholecystitis without obstruction (4) Pancreatitis: Code(s): K85.90 - Acute pancreatitis without necrosis or infection, unspecified Plan 53 YM with DM, hyperlipidemia, GERD, depression, HAs, chronic back pain hospitalized in 11/2020 with nausea, abdominal pain and elevated lipase due to acute on chronic pancreatitis. Abdominal CT scan showed an ill-defined fluid collection is present along the anterior aspect of the pancreas extending into the small bowel mesentery with normal enhancement and no necrosis. A few small scattered calcifications are present within the head of the pancreas without dilatation of the pancreatic duct. Patient gave a history of recurrent episodes of pancreatitis over the past 12-15 years.? Pancreatitis was attributed to hypertriglyceridemia (reported to have triglyceride levels of >1000) Triglycerides were 100 on last admission.? Presence of pancreatic calcifications are suggestive of underlying chronic pancreatitis. Pt had an uneventful lap kaycee on 02/12/[address] Bonilla?to prevent future episodes of pancreatitis - since pancreatitis was felt to be due to undiagnosed biliary microlithiasis. Continue Omeprazole 40 mg daily for GERD and Creon with meals. Pt was advised to FU with PCP (Dr Saleh [phone]) regarding an increase in Triglycerides to > 200 in 07/2021 (lab reports faxed to PCP's office). 01/01/23 MRI of the abdomen was done and findings as noted above. 06/24/23 Pt advised to increase Omeprazole to twice daily and start Linzess 145 mcg daily for constipation. 10/08/23 upper endoscopy (upper abdominal pain) and a colonoscopy (surveillance for colon polyps) was performed and findings as noted above. 10/28/23 Notes intermittent nausea, abdominal and bloating daily - depneding on what he eats. Abdominal pain comes and goes - notes pain if he does not eat and after he eats. Taking one meal a day due to abd pain. Can increase to 10/10 in intensity at times. Feels bloated at times Taking pancreatic enzymes 2 capsules with each meals Eats rice and chicken Taking Linzess daily with improvement in constipation Advised repeat EGD (FU of gastric polyp) and Colon (FU of colon polyps) in 5 years FU in 4 months. Coding Level of Care Code Est Pt Level 4 (08255) Diagnoses Chronic constipation K59.09 Abdominal bloating R14.0 Cholelithiasis K80.20 Pancreatitis K85.90 Time Spent (min) 20
[2023-10-28 10:12] VITALS: BP 120/65; PULSE 107; BMI 30.2
== END 2023-10-28 11:17 | disposition home or self-care (01) ==
PROVIDERS: PCP Family Medicine; Visit Provider Internal Medicine Gastroenterology
DX: K59.09 Other constipation (principal); R14.0 Abdominal distension (gaseous); K80.20 Calculus of gallbladder without cholecystitis without obstruction; K85.90 Acute pancreatitis without necrosis or infection, unspecified
CPT/HCPCS: 99214

== ENCOUNTER → 2023-10-28 10:03 | Outpatient (BNVA) | payer MEDICARE, MEDICAID, SELFPAY | PROVIDERS: PCP Family Medicine; Visit Provider Internal Medicine Gastroenterology | DX: K59.09 Other constipation (principal); K80.20 Calculus of gallbladder without cholecystitis without obstruction; K85.90 Acute pancreatitis without necrosis or infection, unspecified; R14.0 Abdominal distension (gaseous) | CPT/HCPCS: 99212 ==

== ENCOUNTER 2024-03-09 10:16 | Outpatient (AMB) | payer MEDICARE, MEDICAID, SELFPAY ==
--- NOTE | 2024-03-09 10:27 | A.OFFVIS_ITS ---
Vital Signs 03/09/24 10:32 Height 5 ft 4 in Weight 170 lb BMI 29.2 BP 126/79 Blood Pressure Location Lt brachial Position Sitting Pulse 98 Intake Visit Reasons: 4 month follow up Intake Note: Patient follow up for abdominal bloating. Patient cc:abdominal pain with bloating on and off, acid reflex come and go, denies any other GI issues. 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 Accompanied by: Family/Other Allergies gabapentin [GABAPENTIN] Allergy (Mild, Verified 03/09/24 10:27) RASH famotidine [From Pepcid] Allergy (Unknown, Verified 03/09/24 10:27) RASH pregabalin [From LYRICA] Allergy (Unknown, Verified 03/09/24 10:27) VOMITING pantoprazole [From Protonix] Allergy (Verified 03/09/24 10:27) Rash ibuprofen [From Advil] Adverse Reaction (Unknown, Verified 03/09/24 10:27) STOMACH UPSET Medication List - Last Reconciled 03/09/24 by Onel Valdez MD cholecalciferol (vitamin D3) 25 mcg PO DAILY docusate sodium 100 mg PO BID PRN dulaglutide (Trulicity) 3 mg subcut QWEEK fenofibrate 2 tabs PO DAILY fluoxetine 1 cap PO DAILY galcanezumab-gnlm (Emgality Pen) 1 mg subcut Q4W lactobacillus combination no.9 (Adult 50 Plus Probiotic) 4,000 mmu cells PO DAILY 90 days linaclotide (Linzess) 145 mcg PO QAM 90 days [id number]-ycunfpbi-yzfshkk 12,000-38,000 -60,000 unit (Creon) 2 caps PO TID 90 days magnesium oxide 500 mg PO DAILY nortriptyline 25 caps PO BEDTIME omeprazole 40 mg PO BID 60 days ondansetron 1 tab PO Q8H PRN oxycodone 1 tab PO QID PRN oxycodone 5 mg PO Q6H PRN pioglitazone 1 tab PO BID rosuvastatin 1 tab PO DAILY sumatriptan succinate 100 mg PO DAILY PRN tizanidine 1 tab PO TID zolpidem 10 tabs PO BEDTIME PRN HPI HPI 4 month follow up: Details: GI clinic visit for this 54-year-old male for follow-up of recurrent pancreatitis Pt had an episode of acute pancreatitis requiring hospitalization in November 2020.? Pt had an uneventful lap jethro on 02/12/[address] Bonilla. IMAGING STUDIES:? 01/01/23 ABD MRI SHOWED: 1.? The pancreatic duct is dilated measuring up to 0.6 cm in thepancreatic head and 0.4 cm in the pancreatic body. The distal mostpancreatic duct in the pancreatic head is not able to be delineated as it extends up to the ampulla even on the thin slice images. The coarsened calcifications seen in this area on the prior CT scan are not able to be delineated on the MRI. I do not appreciate any suspicious enhancement within the pancreatic parenchyma. Overall the constellation of findings would be consistent with sequela of prior pancreatitis. I do not appreciate any evidence for acute pancreatitis. 2.? There is mild diffuse fatty infiltration of the liver. 06/10/[address] SCAN SHOWED:No acute CT findings. No evidence of acute pancreatitis. No pancreaticnecrosis. Again seen are coarse calcifications in the head of the pancreas consistent with chronic calcific pancreatitis. ? Possible 1.2 cm cyst in the head of the pancreas. Recommend follow-up MRI of the abdomen including MRCP images in 6-12 months to assess stability. ENDOSCOPIC STUDIES:?10/08/23 EGD AND COLON SHOWED: Endoscopy Findings: STOMACH: Moderate diffuse gastric erythema. Biopsies were obtained from the antrum and body of the stomach. A 7-8 mm benign appearing polyp in the fundus and Grade 2 flap valve on retroflexed examination of the cardia. (Polyp was not accessible for biopsies) DUODENUM: Normal - biopsied to check for celiac sprue Colonoscopy Findings: Two small polyps removed Moderate diverticulosis seen in the sigmoid colon Moderate hemorrhoids on retroflexed exam. Plan: Repeat Colonoscopy interval based on path results - in 5 years if polyps are adenomatous and due to history of colon polyps. Above findings were reviewed with the patient and colon polyps and dive rticulosis handouts were given in the discharge area BIOPSIES SHOWED: A. Small bowel, biopsy: Small-bowel/duodenal mucosa with preserved villi and no specific change; no evidence of celiac disease. B. Gastric antrum, biopsy: Gastric antral mucosa with focal minimal chronic inactive inflammation; negative for H pylori, intestinal metaplasia and dysplasia. C. Gastric body, biopsy: Gastric body mucosa with focal minimal chronic inactive inflammation; negative for H pylori, intestinal metaplasia and dysplasia. Patient reports having an upper endoscopy and colonoscopy 3 years ago in [place] and no polyps were detected. 2011 EUS was normal. TODAY'S VISIT: Notes abdominal bloating with fried foods and desserts Wt loss of 10 lbs over the past year Taking Linzess and dulcolax for constipation. Notes diarrhea after he eats. Notes upper abdominal pain - twice a week if he takes Fried foods PAST VISITS: EGD and colon results reviewed. Notes intermittent nausea, abdominal and bloating daily - depending on what he eats. Abdominal pain comes and goes - notes pain if he does not eat and after he eats. Taking one meal a day due to abd pain. Can increase to 10/10 in intensity at times. Feels bloated at times Taking pancreatic enzymes 2 capsules with each meals Eats rice and chicken Taking Linzess daily with improvement in constipation Tried Miralax in the past and caused abdominal pain 03/17/23 - diagnosed with cutaneous T cell lymphoma and treated with a steroid topical cream and phototherapy for 3 monthsStill using the creamHe would like to schedule a colonoscopy Last colon 5 years ago at [facility] - polyps were removed Patient denies known family history of colon polyps or cancer. Has been eating less due to abdominal pain and bloating and loosing weight Taking dulcolax once a day for constipation and can have intermittent diarrhea. Blood sugars have been high. Eating once a day around 1:30 to 3 pm. Can wake up and eat something at night. Patient follow up for Cholelithiasis. Patient cc: abdominal bloating, acid reflex. Patient denies any other GI issues. Notes intermittent epigastric/LUQ pain radiating to the back after eating fired foods Pain is 5/10 and can last for 45 min. Pt notes nausea without vomiting when he has the pain. Intermittent diarrhea since Lap jethro Everything is good. Can have intermittent heartburn related to diet. Appetite is good and weighs 185 lbs notes nausea, bloating and intermittent heartburn. Intermittent post prandial diarrhea twice a week. Takes Dulcolax once a day for constipation Taking Colace 2 capsules daily and Miralax three times a week for constipation. Abdominal pain has improved since the surgery Appetite is Ok and has 1 meal a day on some days. His weight has been stable. Complains of abd pain and nausea. Pain has improved to 4-5/10 (pain was 9-10/10 during hospitalization). Staying away from fried foods and sugar. Has lost some weight. Taking pancreatic enzyme 1 capsule with each meal. Denies recent change in bowel habits, constipation, diarrhea, black stools or rectal bleeding. Patient denies major cardiac or pulmonary problems, loud snoring or sleep apnea Denies problems with anesthesia in the past. Denies being on chronic anticoagulation. Patient denies known family history of pancreatic disease, colon polyps, colon cancer or other?GI?malignancy PFSH Medical History (Updated 03/09/24 @ 17:30 by Onel Valdez MD) Diabetes Kidney stone Pancreatitis Migraine HTN (hypertension) Depression Surgical History S/P laparoscopic cholecystectomy (02/12/21) History of elbow surgery Hx of endoscopy Hx of colonoscopy H/O neck surgery Social History Household Members: Spouse Housing: Apartment Do you presently have visiting nurse or other home services: No Alcohol intake: never Patient Tobacco Use Status: Never used Tobacco Second Hand Smoke Exposure: No Advance Directives Date on File: 12/19/20 service: No Current occupational status: disabled Review of Systems Const All systems reviewed & are unremarkable except as noted in HPI and below Physical Exam Vital Signs: Last Vital Signs Pulse 98 03/09/24 10:32 BP 126/79 03/09/24 10:32 BMI result Body Mass Index 29.2 Const General: healthy appearing and no acute distress Nutritional Appearance: obese Orientation/consciousness: patient oriented x3 Limitations: no limitations HEENT Head: Yes normal to inspection Ears: hearing grossly normal bilaterally Eyes Sclerae: sclerae normal Pupils: Equal, round and reactive pupils present Neck Neck: Yes normal visual inspection Chest Chest palpation & inspection: normal inspection of the chest Resp Effort & Inspection: normal respiratory effort Auscultation: clear to auscultation bilaterally Cardio Palpation: normal PMI Rate: regular rate Rhythm: regular rhythm Heart sounds: S1 normal heart sound present, S2 normal heart sound present and no murmurs GI Palpation (GI): Soft to palpation, Tenderness to palpation present (GI) (mild epigastric tenderness) and No hepatosplenomegaly present Auscultation: normal bowel sounds Rectal Exam - Male: Yes deferred Skin General skin exam: no rashes or lesions noted Neuro General: patient oriented x3, gait normal and moves all extremities Cranial nerves: Yes Equal, round and reactive pupils present Psych Appearance: grossly normal Mental Status: mental status grossly normal Assessment & Plan Assessment & Plan (1) Chronic calcific pancreatitis: Code(s): K86.1 - Other chronic pancreatitis Category: Medical Plan 54 YM with DM, hyperlipidemia, GERD, depression, HAs, chronic back pain hospitalized in 11/2020 with nausea, abdominal pain and elevated lipase due to acute on chronic pancreatitis. Abdominal CT scan showed an ill-defined fluid collection is present along the anterior aspect of the pancreas extending into the small bowel mesentery with normal enhancement and no necrosis. A few small scattered calcifications are present within the head of the pancreas without dilatation of the pancreatic duct. Patient gave a history of recurrent episodes of pancreatitis over the past 12-15 years.? Pancreatitis was attributed to hypertriglyceridemia (reported to have triglyceride levels of >1000) Triglycerides were 100 on last admission.? Presence of pancreatic calcifications are suggestive of underlying chronic pancreatitis. Pt had an uneventful lap jethro on 02/12/[address] Bonilla?to prevent future episodes of pancreatitis - since pancreatitis was felt to be due to undiagnosed biliary microlithiasis. Continue Omeprazole 40 mg daily for GERD and Creon with meals. Pt was advised to FU with PCP (Dr Saleh [phone]) regarding an increase in Triglycerides to > 200 in 07/2021 (lab reports faxed to PCP's office). 01/01/23 MRI of the abdomen was done and findings as noted above. 06/24/23 Pt advised to increase Omeprazole to twice daily and start Linzess 145 mcg daily for constipation. 10/08/23 upper endoscopy (upper abdominal pain) and a colonoscopy (surveillance for colon polyps) was performed and findings as noted above. 10/28/23 Notes intermittent nausea, abdominal and bloating daily - depneding on what he eats. Abdominal pain comes and goes - notes pain if he does not eat and after he eats. Taking one meal a day due to abd pain. Can increase to 10/10 in intensity at times. Feels bloated at times Taking pancreatic enzymes 2 capsules with each meals Eats rice and chicken Taking Linzess daily with improvement in constipation Advised repeat EGD (FU of gastric polyp) and Colon (FU of colon polyps) in 5 years 03/09/24 Notes abdominal bloating with fried foods and desserts Wt loss of 10 lbs over the past year Taking Linzess and dulcolax for constipation. Notes diarrhea after he eats. Notes upper abdominal pain - twice a week if he takes Fried foods Advise to increase Creon to 3 capsules with each meal (1 capsule with before and two capsules in between meals) FU in 4 months Orders: Orders Vitamin D 25-OH Total Today K86.1 - Other chronic pancreatitis Complete Blood Count no Diff Today K86.1 - Other chronic pancreatitis Vitamin A Today K86.1 - Other chronic pancreatitis Prothrombin Time INR Today K86.1 - Other chronic pancreatitis Vitamin B12 Today K86.1 - Other chronic pancreatitis Comprehensive Met. Panel Today K86.1 - Other chronic pancreatitis Vitamin E Today K86.1 - Other chronic pancreatitis Medications: Changed From [id number]-nwzaaucd-aflfnwz 12,000-38,000 -60,000 unit (Creon) 2 caps PO TID 90 days 540 caps 2RF K85.90 - Acute pancreatitis without necrosis or infection, unspecified To [id number]-zdkbrlcn-apkqxmc 12,000-38,000 -60,000 unit (Creon) 1 capsule with the first bite and and two capsules in between meals And 1 capsule with each snack 3 caps PO TID 90 days 810 caps 2RF K85.90 - Acute pancreatitis without necrosis or infection, unspecified Coding Level of Care Code Est Pt Level 4 (46072) Diagnoses Chronic calcific pancreatitis K86.1 Time Spent (min) 21
[2024-03-09 10:32] VITALS: BP 126/79; PULSE 98; BMI 29.2
== END 2024-03-09 11:41 | disposition home or self-care (01) ==
PROVIDERS: PCP Family Medicine; Visit Provider Internal Medicine Gastroenterology
DX: K86.1 Other chronic pancreatitis (principal)
CPT/HCPCS: 99214

== ENCOUNTER → 2024-03-09 10:16 | Outpatient (BNVA) | payer MEDICARE, MEDICAID, SELFPAY | PROVIDERS: PCP Family Medicine; Visit Provider Internal Medicine Gastroenterology | DX: K86.1 Other chronic pancreatitis (principal); E78.5 Hyperlipidemia, unspecified; K21.9 Gastro-esophageal reflux disease without esophagitis | CPT/HCPCS: 99212 ==

== ENCOUNTER 2024-08-24 08:57 | Outpatient (REF) | payer MEDICARE, MEDICAID, SELFPAY ==
[2024-08-24 09:58] LABS: INTERNATIONAL NORM RATIO 1.1 (0.9-1.1); Prothrombin Time 12.3 SEC (10.9-12.4)
[2024-08-24 10:16] LABS: Hematocrit 44.4 % (42.0-52.0); Hemoglobin 14.6 g/dl (14.0-18.0); Mean Corpuscular HGB Conc 32.9 g/dl (31.0-36.0); Mean Corpuscular Hemoglobin 28.3 pg (27.0-33.0); Mean Corpuscular Volume 86.2 fL (80.0-98.0); Mean Platelet Volume 13.4 fL (9.4-12.4); Platelet Count 209 X10*3/uL (160-400); Red Blood Count 5.15 X10*6/uL (4.60-5.80); Red Cell Distribution Width 13.8 % (11.0-16.0); White Blood Count 7.2 X10*3/uL (4.8-10.8)
[2024-08-24 10:33] LABS: Alanine Aminotransferase 22 U/L (0-40); Alkaline Phosphatase 49 U/L (39-117); Anion Gap 15 (12-20); Aspartate Amino Transferase 35 U/L (5-37); Bilirubin Total 0.6 mg/dL (0.0-1.0); Blood Urea Nitrogen 20 mg/dL (9-16); Calcium 11.6 mg/dL (8.4-10.2); Carbon Dioxide 26 mmol/L (22-29); Chloride 105 mmol/L (96-108); Estimated Glomerular Filt Rate 45; Glucose Random 114 mg/dL (60-115); Potassium 4.6 mmol/L (3.3-5.1); Sodium 141 mmol/L (135-145); Total Protein 8.9 g/dL (6.5-8.0)
[2024-08-24 10:42] LABS: Vitamin D 25-OH Total 43.5 ng/mL (>30)
[2024-08-24 10:50] LABS: Vitamin B12 425 pg/mL (200-900)
[2024-08-28 23:23] LABS: Vitamin A 99 mcg/dL (38-98)
[2024-08-29 01:22] LABS: Alpha-Tocopherol 7.6 mg/L (5.7-19.9); Beta-Gamma Tocopherol <1.0 mg/L (<=4.3)
== END 2024-08-24 08:58 | disposition home or self-care (01) ==
LOC: HO.HMGCLDS 08:57
PROVIDERS: PCP Family Medicine; Visit Provider Internal Medicine Gastroenterology
DX: K86.1 Other chronic pancreatitis (principal); Z79.01 Long term (current) use of anticoagulants
CPT/HCPCS: 36415; 80053; 82306; 82607; 84446; 84590; 85027; 85610

== ENCOUNTER → 2024-08-31 12:20 | Outpatient (BNVA) | payer MEDICARE, MEDICAID, SELFPAY | PROVIDERS: PCP Family Medicine; Visit Provider Internal Medicine Gastroenterology | DX: K80.20 Calculus of gallbladder without cholecystitis without obstruction (principal); K59.09 Other constipation; K86.1 Other chronic pancreatitis; R14.0 Abdominal distension (gaseous); R10.13 Epigastric pain | CPT/HCPCS: 99212 ==

== ENCOUNTER 2024-09-07 12:51 | Outpatient (REF) | payer MEDICARE, MEDICAID, SELFPAY ==
--- NOTE | ~2024-09-07 | MR_ITS ---
EXAMINATION: MR ABDOMEN WITHOUT AND WITH CONTRAST CLINICAL INFORMATION: Chronic pancreatitis. COMPARISON: MRI abdomen dated January 01, 2023. TECHNIQUE: MR abdomen was performed without and with use of 7.5 mL intravenous Gadavist gadolinium contrast. Postcontrast images are performed in multiphase dynamic sequences. Imaging was performed in 3 planes. No reported immediate complications. FINDINGS: LIVER, GALLBLADDER, AND BILIARY TREE: Liver measures 14 cm. No focal enhancing mass. 1 mm fluid signal characteristic lesion in the periphery of the right hepatic lobe. Main portal veins, hepatic veins and intrahepatic portion of the IVC are patent. No intrahepatic biliary ductal dilatation. The gallbladder is absent. The common bile duct measures 4 mm. PANCREAS: There is a saccular morphology pattern of the main pancreatic duct which measures 8 mm in the region of the head and 6 mm in the region of the body. No enhancing lesion within the main pancreatic duct or the pancreatic parenchyma. Volume loss of the pancreas. No peripancreatic fluid collections. SPLEEN: 11 cm. No focal mass. ADRENAL GLANDS: No nodular lesions. KIDNEYS AND URETERS: No renal mass. No hydronephrosis. Subcentimeter nonenhancing fluid signal in the anterior midportion right kidney and similar finding in the lower pole left kidney. GASTROINTESTINAL TRACT: Abundant stool in the large intestine. No intestinal obstruction pattern. No ascites. ABDOMINAL WALL: Small tiny fat-containing umbilical hernia. LYMPH NODES: No lymphadenopathy. VASCULAR: No aneurysm or dissection abdominal aorta. OSSEOUS STRUCTURES: Multilevel thoracolumbar spondylosis. Disc bulging versus central hernia at L4-5 and L5-S1. MR/MR abdomen wo/w con IMPRESSION: Saccular main pancreatic ductal dilatation without discrete enhancing lesion and or mass. No choledocholithiasis. Electronically signed by: Connor Morel MD 09/07/2024 03:40 PM [facility]
[2024-09-07] MEDS: gadobutroL 7.5 ML VIAL IVPUSH (14:12)
--- OUTSIDE RECORDS SUMMARY | 2024-09-07 16:23 | XMS_ITS | Continuity of Care Document ---
Author Organization [facility], Endocrinology, [facility] Address [address] [place] [address] Care Team Providers Care Implementation Director Name Role Phone BHUPENDRA TURK Medical Case Worker IMMANUEL TORRES Medical Case Worker Unavailable TARAN SANCHEZ Primary Care Provider PARKER GUO [employer] Assessment No assessment recorded. Plan of Treatment Reminders Order Date Submit Date Provider Last Modified By Organization Details Last Modified Time Details Appointments Follow Up, 40 2024 03:30P M Immanuel Torres MD Not available Not available Not available Lab None recorded . Referral None recorded . Procedures None recorded . Surgeries None recorded . Imaging None recorded . Medication Orders None recorded . Patient TargetsNo targets recorded. Patient InstructionsNo instructions recorded. Reason for Referral None Reported. Problems Name Problem SNOMED Code Status Onset Date Resolution Date Notes Provider Name and Address Organization Details Recorded Time Pure hypergly ceridemi a 262385750 Active 2007 Not Available [facility] 4 05:31:29 Gastroes ophageal reflux disease 770664410 Active Not Available [facility] 4 05:31:29 Abdomina l pain 96291014 Completed 07/12/2013 Not Available [facility] 3 02:01:24 Right upper quadrant pain 292176168 Completed 200807/12/2013 Not Available [facility] 3 02:03:18 Pure hypercho lesterol emia 435882332 Completed 200706/02/2021 Removal Reason: really is just TG Immanuel Torres MD [address] [place] [address], [phone] , [facility] 16:25:08 Prediabe benton 974356770 Completed 202006/02/2021 Removal Reason: transiti on to DMT2 Immanuel Torres MD [address] [place] [address], [phone] , [facility] 16:25:20 Non-alco holic fatty liver 893127665 Active 2020 Not Available Counts include 234 beds at the [facility] 4 05:31:29 History of pancreat itis 16365137061 107 Active 2020 Not Available Counts include 234 beds at the [facility] 4 05:31:29 Type 2 diabetes mellitus without complica tion 714175240 Active 2022 coded 11/19/21 Virtual Visit Not Available Counts include 234 beds at the [facility] 4 05:31:29 Uncontro lled type 2 diabetes mellitus 135287952 Active 2022 Not Available Counts include 234 beds at the [facility] 4 05:31:29 Notes:Some problems listed i n Documents: #[id number], #[id number] could not be added to this patient's chart. Please review these documents and add these problems to the patient's chart manually as needed. Problem Notes None recorded. Procedures Surgical History Date Name Laterality Status Provider Name and Address Organization Details Recorded Time 06/10/20 23 Insulin Teaching completed Arlene Thomson RN [facility] 06/10/2023 15:23:46 02/13/20 21 cholecystectomy completed Arlene Thomson RN [facility] 06/02/2021 15:20:06 10/05/19 20 Tassoni - EGD completed Sharad Horn MD [address] [place] [address], [phone], [facility] 10/05/2019 12:39:37 Imaging Results None recorded. Procedure Notes None recorded. Medical Equipment None Reported. Allergies Allergen ID Allergen Name Allergen Category Reaction Reaction Severity Criticality Documentation Date Start Date Code Code System Note Provider Name and Address Organization Details Recorded Time [id number] gabapenti n medicatio n headache Not available Not available 04/06/2012 99328 RxNorm Zaira López [place] null, [facility] 2 14:52:44 032077 Lyrica medicatio n Not available Not available Not available 04/06/2012 57041 1 RxNorm tight ness in venu t, not swell rajinder López MA [facility] 2 14:52:44 8288 Pepcid medicatio n rash Not available Not available 11/29/2008 98156 8 RxNorm GI upset Not Available Counts include 234 beds at the [facility] 1 06:05:20 8289 Advil medicatio n nausea vomiting Not available Not available Not available 11/29/2008 89065 0 RxNorm Not Available Counts include 234 beds at the [facility] 1 06:05:20 Medications Name Sig Start Date Stop Date Status Note LastModified by Organization Details LastModified Time oxycodone hydrochlo ride 10 mg tabs 02/06 completed Not Available Not Available Not Available zolpidem tartrate 10 mg tabs 02/06 completed Not Available Not Available Not Available pioglitaz one hydrochlo ride 15 mg tabs 02/06 completed Not Available Not Available Not Available fluticaso ne propionat e 50 mcg/act susp 02/06 completed Not Available Not Available Not Available fenofibra te 54 mg tabs 02/06 completed Not Available Not Available Not Available omeprazol e 20 mg cpdr 02/06 completed Not Available Not Available Not Available triamcino lone acetonide 0.1 % crea 02/06 completed Not Available Not Available Not Available ondansetr on odt 4 mg tbdp 02/06 completed Not Available Not Available Not Available emgality 120 mg/ml soaj 02/06 completed Not Available Not Available Not Available nortripty line hcl 25 mg caps 02/06 completed Not Available Not Available Not Available rosuvasta tin calcium 40 mg tabs 02/06 completed Not Available Not Available Not Available tizanidin e hydrochlo ride 4 mg tabs 02/06 completed Not Available Not Available Not Available sumatript an succinate 100 mg tabs 02/06 completed Not Available Not Available Not Available omeprazol e 40 mg cpdr 02/06 completed Not Available Not Available Not Available but/apap/ caf tab 02/06 completed Not Available Not Available Not Available cyclobenz aprine 10 mg tablet Take 1 tablet 3 times a day by oral route. active stopped 2012 Not Available Not Available Not Available pioglitaz one 15 mg tablet TAKE 1 TABLET BY MOUTH EVERY DAY 05/18 completed taking the 30mg daily now. 04/22/23 Not Available Not Available Not Available atorvasta tin 80 mg tablet Take 1 tablet every day by oral route in the evening for 30 days. 05/19 completed 05/19/16 pt states he becomes nausated when taking this medicati on. Not Available Not Available Not Available Protonix 40 mg tablet,de layed release active Take 1:00 tab. q.d. Not Available Not Available Not Available tizanidin e 2 mg tablet 2 tabs every 8 hours 06/02 completed Not Available Not Available Not Available azithromy opal 250 mg tablet TAKE 2 TABLETS BY MOUTH TODAY, THEN TAKE 1 TABLET DAILY FOR 4 DAYS 09/29 completed Not Available Not Available Not Available alprazola m 1 mg tablet PLEASE SEE ATTACHED FOR DETAILED DIRECTIO NS 04/05 completed Not Available Not Available Not Available tizanidin e 4 mg tablet TAKE 1 TABLET BY MOUTH EVERY 8 HOURS NEEDED FOR MUSCLE PAIN OR SPASMS active Not Available Not Available No t Available citalopra m 10 mg tablet Take 2 tablets every day by oral route. active Not Available Not Available No t Available sumatript an 100 mg tablet PLEASE SEE ATTACHED FOR DETAILED DIRECTIO NS active Not Available Not Available No t Available Ativan 1 mg tablet 11/29 completed Take 1.00 tabs every night at bedtime as needed Not Available Not Available Not Available prednison e 20 mg tablet TAKE 1 TABLET BY MOUTH EVERY DAY FOR 5 DAYS 05/18 completed not taking now 04/22/23 Not Available Not Available Not Available Accu-Chek Softclix Lancets USE TO TEST BLOOD SUGAR ONCE DAILY FOR TYPE II DM. active Not Available Not Available No t Available Nexium 40 mg capsule,d elayed release Take 1 capsule every day by oral route. 03/01 completed stopped 02/2017 Not Available Not Available Not Available betametha sone valerate 0.1 % lotion active Not Available Not Available Not Available omeprazol e 40 mg capsule,d elayed release TAKE 1 CAPSULE BY MOUTH DAILY. active Not Available Not Available No t Available tramadol 50 mg tablet active prescrib ed by PCP, 1 tab q 6 hrs prn pain Not Available Not Available Not Available triamcino lone acetonide 0.1 % topical cream 05/18 completed as needed Not Available Not Available Not Available butalbita l-acetami nophen-ca ffeine 50 mg-325 mg-40 mg tablet 05/24 completed Not Available Not Available Not Available ondansetr on 8 mg disintegr ating tablet Take 1 tablet every 8 hours by oral route for 2 days. active Not Available Not Available No t Available nortripty line 25 mg capsule TAKE 3 CAPSULES BY MOUTH DAILY AT BEDTIME active Not Available Not Available No t Available amoxicill in 875 mg tablet 05/24 completed Not Available Not Available Not Available Celebrex 100 mg capsule Take 1 capsule every day by oral route. active Not Available Not Available No t Available citalopra m 20 mg tablet Take 1 tablet every day by oral route. 02/06 completed Not Available Not Available Not Available Vitamin D3 10 mcg (400 unit) tablet TAKE 1 TABLET BY MOUTH ONCE DAILY X90 DAYS 11/19 completed Not Available Not Available Not Available triamcino lone acetonide 0.025 % topical cream 06/02 completed Not Available Not Available Not Available Lidoderm 5 % topical patch Apply 1 patch every day by transder mal route. 01/14 completed Not Available Not Available Not Available topiramat e 25 mg sprinkle capsule 02/06 completed Not Available Not Available Not Available benzonata te 100 mg capsule TAKE 1 CAPSULE BY MOUTH 3 TIMES A DAY FOR 7 DAYS 04/05 completed Not Available Not Available Not Available ranitidin e 150 mg tablet Take 1 tablet twice a day by oral route. 05/24 completed Not Available Not Available Not Available oxycodone 5 mg capsule 01/14 completed Take 1:00 cap q4h 01/14/17 dose changed to 10 mg per patient at visit today. Not Available Not Available Not Available fluoxetin e 10 mg capsule 06/02 completed Not Available Not Available Not Available triamcino lone acetonide 0.025 % topical ointment APPLY TO AFFECTED AREA TWICE A DAY FOR 14 DAYS 05/18 completed Not Available Not Available Not Available magnesium 500 mg (as magnesium oxide) tablet TAKE 1 TABLET BY MOUTH EVERY DAY 09/15 completed not taking 05/18/23 Not Available Not Available Not Available betametha sone dipropion ate 0.05 % topical cream APPLY TO AFFECTED AREA TWICE A DAY NEEDED FOR RASH active Not Available Not Available No t Available docusate sodium 100 mg capsule TAKE 1 CAPSULE BY MOUTH TWICE A DAY NEEDED active Not Available Not Available No t Available gabapenti n 300 mg capsule Take 1 capsule every day by oral route. 09/15 completed not taking 05/18/23 Not Available Not Available Not Available sertralin e 25 mg tablet 2007 active Take 1.00 tabs daily Not Available Not Available Not Available Advil 200 mg tablet Take 1 tablet every 6 hours by oral route as needed. 02/06 completed Not Available Not Available Not Available omeprazol e 20 mg capsule,d elayed release TAKE ONE CAPSULE BY MOUTH ONCE DAILY 09/29 completed Not Available Not Available Not Available niacin ER 500 mg capsule,e xtended release Take 1 capsule every day by oral route for 30 days. 06/20 completed Stopped - it gave him hot flashes, rash head to toe. Not Available Not Available Not Available vitamin B complex tablet TAKE 1 CAPSULE BY MOUTH DAILY. active Not Available Not Available No t Available morphine ER 15 mg tablet,ex tended release 10/01 completed Not Available Not Available Not Available zolpidem 10 mg tablet TAKE 1 TABLET BY MOUTH EVERY DAY AT BEDTIME NEEDED FOR SLEEP FOR 28 DAYS active Not Available Not Available No t Available pioglitaz one 30 mg tablet TAKE 1 TABLET BY MOUTH EVERY DAY active Not Available Not Available No t Available Naprosyn 500 mg tablet active Take 1:00 tab. b.i.d. prn Not Available Not Available Not Available betametha sone dipropion ate 0.05 % topical ointment active as needed Not Available Not Available Not Available ondansetr on 4 mg disintegr ating tablet TAKE 1 TABLET BY MOUTH EVERY 8 HOURS NEEDED FOR NAUSEA AND VOMITING active Not Available Not Available No t Available fluoxetin e 20 mg capsule TAKE 1 CAPSULE BY MOUTH EVERY DAY. active Not Available Not Available No t Available fluticaso ne propionat e 50 mcg/actua tion nasal spray,jeffrey pension USE 2 SPRAYS IN EACH NOSTRIL DAILY 06/02 completed Not Available Not Available Not Available doxycycli ne hyclate 100 mg tablet TAKE 1 TABLET BY MOUTH TWICE A DAY FOR 10 DAYS 04/05 completed Not Available Not Available Not Available vitamin B complex capsule TAKE 1 CAPSULE BY MOUTH DAILY. active Not Available Not Available No t Available oxycodone 5 mg tablet TAKE 1 TABLET BY MOUTH EVERY 6 HOURS NEEDED FOR PAIN 06/02 completed Not Available Not Available Not Available Butalbita l Compound- Codeine 30 mg-50 mg-325 mg-40 mg capsule Take 1 capsule every 4 hours by oral route. 11/18 completed Not Available Not Available Not Available Laxative (bisacody l) 5 mg tablet,de layed release TAKE 4 TABLETS BY MOUTH ONCE FOR 1 DAY TAKE AT NOON THE DAY BEFORE COLONOSC OPY active Not Available Not Available No t Available Vitamin D3 25 mcg (1,000 unit) capsule TAKE 1 CAPSULE BY MOUTH EVERY DAY active Not Available Not Available No t Available metformin ER 750 mg tablet,ex tended release 24 hr Take 1 tablet every day by oral route. 05/24 completed unable to tolerate - GI s/e per 10/2018 note Not Available Not Available Not Available rosuvasta tin 40 mg tablet TAKE 1 TABLET BY MOUTH EVERY DAY. 2023 active Not Available Not Available Not Avai lable Prilosec OTC 20 mg tablet,de layed release Take 1 tablet every day by oral route. 02/06 completed Not Available Not Available Not Available Budeprion SR 150 mg tablet, sustained release 2007 active Take 2.00 tabs every day-stop ped 2012 Not Available Not Available Not Available Cymbalta 60 mg capsule,d elayed release active Take 1:00 cap. q.d. Not Available Not Available Not Available Pepcid 02/06 completed unknown strength Not Available Not Available Not Available ketoconaz ole active prescrib ed by PCP 2% cream bid for 21 days. Not Available Not Available Not Available Zanaflex 1 tablet in a.m. and 2 tablets at p.m. (new medicati on, unable to remember the dose) 05/24 completed Not Available Not Available Not Available cholecalc iferol (vitamin D3) 25 mcg (1,000 unit) tablet 11/19 completed Not Available Not Available Not Available fenofibra te 120 mg tablet TAKE 1 TABLET BY MOUTH EVERY DAY 10/27 completed upset stomach - nausea Not Available Not Available Not Available oxycodone 20 mg tablet 09/15 completed not taking 05/18/23 Not Available Not Available Not Available oxycodone 10 mg tablet TAKE 1 TABLET BY MOUTH EVERY 6 HOURS FOR 28 DAYS active Not Available Not Available No t Available fenofibra te 54 mg tablet TAKE 2 TABLETS BY MOUTH EVERY DAY 2023 active Not Available Not Available Not Avai lable Tussin 100 mg/5 mL oral liquid TAKE 10ML BY MOUTH EVERY 4 HOURS NEEDED FOR COUGH 09/29 completed Not Available Not Available Not Available Creon 12,000-38 ,000-60,0 00 unit capsule,d elayed release TAKE 2 CAPSULES BY MOUTH 3 TIMES A DAY FOR 90 DAYS (DISPENS E ORIGINAL BOTTLES) active Not Available Not Available No t Available Gavilax 17 gram/dose oral powder DRINK 238 GRAMS BY MOUTH ONCE FOR 1 DAY TAKE DIRECTED BY MOUTH THE DAY BEFORE YOUR PROCEDUR E. 04/05 completed Not Available Not Available Not Available OneTouch Delica Lancets 33 gauge 02/06 completed Not Available Not Available Not Available Aleve 220 mg capsule Take by oral route as needed. 02/06 completed Not Available Not Available Not Available Accu-Chek Aby Plus test strips USE TO TEST BLOOD SUGAR THREE TIMES DAILY active Not Available Not Available No t Available Accu-Chek Aby Plus Meter active Not Available Not Available Not Available Linzess 145 mcg capsule TAKE 1 CAPSULE BY MOUTH EVERY MORNING active Not Available Not Available No t Available Trulicity 1.5 mg/0.5 mL subcutane ous pen injector Inject 1.5 mg every week by subcutan eous route for 90 days. 04/05 completed Not Available Not Available Not Available Trulicity 0.75 mg/0.5 mL subcutane ous pen injector INJECT 0.5 ML (0.75MG) SUBCUTAN EOUSLY EVERY WEEK 12/06 completed Not Available Not Available Not Available baclofen 5 mg tablet TAKE 1 TABLET 3 TIMES A DAY (START WITH ONCE A DAY) active Not Available Not Available No t Available Emgality Pen 120 mg/mL subcutane ous pen injector INJECT SUBCUTAN EOUSLY EVERY 28 DAYS 11/19 completed Not Available Not Available Not Available Aimovig Autoinjec tor 140 mg/mL subcutane ous auto-inje ctor INJECT 1 PEN SUBCUTAN EOUSLY EVERY 28 DAYS active Not Available Not Available No t Available Trulicity 3 mg/0.5 mL subcutane ous pen injector INJECT 3 MG SUBCUTAN EOUSLY ONCE A WEEK 08/02 completed Not Available Not Available Not Available Trulicity 4.5 mg/0.5 mL subcutane ous pen injector INJECT 4.5 MG SUBCUTAN EOUSLY ONCE A WEEK active Not Available Not Available No t Available Vitals Date Recorded Body height Provider Name an d Address Organization Details Last Updated DateTime 08/03/2024 164.47 cm Arlene Thomson RN [facility] 08/03/2024 10:21:07 Date Recorded Body mass index (BMI) Provider Name and Address Organization Details Last Updated DateTime 08/03/2024 27.2 kg/m2 Arlene Thomson RN [facility] 08/03/2024 10:22:21 Date Recorded Body weight Provider Name an d Address Organization Details Last Updated DateTime 08/03/2024 34451.32 g Arlene Thomson RN [facility] 08/03/2024 10:22:22 Social History Question Answer Notes LastModified by Organizat ion Details LastModified Time Tobacco Smoking Status Never Smoker denies Not Available [facility] 01/15/2011 02:08:11 What Is Your Level Of Alcohol Consumption? None Information not available 12/11/2014 Which Illicit Or Recreational Drugs Have You Used? Denies Denies Information not available 12/11/2014 Education 12 Stopped 2-3 Months Before Graduation Information not available 04/10/2009 CCM Consent Discussion 09/29/2022 [email or web address] Information not available 09/29/2022 Marital Status Single Girlfirend Kaylynn Information not available 04/10/2009 What Was The Date Of Your Most Recent Tobacco Screening? 11/18/2018 Information not available 03/15/2019 How Many Children Do You Have? 0 [id number] Information not available 07/09/2011 Do You Use Any Illicit Or Recreational Drugs? No Information not available 11/19/2021 Do You Or Have You Ever Used Any Other Forms Of Tobacco Or Nicotine? No Information not available 11/19/2021 Sex: Unknown Functional Status None recorded. Mental Status None recorded. Family History Relationship Description Onset Age of this Age Resolved Age Notes LastModified by Organization Details LastModified Time Mother Hyperlipidem yury mas Not available 10/2015 14:32:27 Notes:mother 73 live diabete s HTN, hypercholesterolemia, dialysis secondary-2015 father 84 live no contact, CABG x 4 in 80's 6 sisters live, healthy generally, one with asthma. MGM of [place] at age 60's 11/08- Family OK. 06/10- Sisters healthy. No kids. 06/12: family OK. Mom alive in [place] (76). 11/11: Family OK. 10/15: No changes. Medical History Condition Response Hyperlipidemia Y Immunizations Vaccine Type Date Status Note Provider Nam e and Address Organization Details Recorded Time COVID-19, mRNA, LNP-S, PF, 30 mcg/0.3 mL dose 12/25/2020 completed Not Available [facility] 4 05:31:29 COVID-19, mRNA, LNP-S, PF, 30 mcg/0.3 mL dose 07/09/2021 completed Not Available [facility] 4 05:31:29 COVID-19, mRNA, LNP-S, bivalent, PF, 30 mcg/0.3 mL dose 06/24/2022 completed Not Available [facility] 4 05:31:29 Past Encounters Encounter ID Performer Location Encounter Start Date Encounter Closed Date Diagnosis/Indication Diagnosis SNOMED-CT Code Diagnosis ICD10 Code Diagnosis Note [id number] Immanuel Torres MD [facility], [address] [address] 08/03/2024 09:56:59 08/08/2024 07:28:51 Uncontrolled type 2 diabetes mellitus 657203915 E11.65 Updated A1c - 7.6 % 04/2024 ( was) 10/2023 = 8.3% = 8.1 (09/15); was 8.9 (05/15) was 8.7 (per pt by PCP POC); 8.2 (02/12) Diabetic medication s and current doses:1.) Pioglitzon e 30 mg once daily (used for high TG and fatty liver in addition to DM)2. ) Trulicity 4.5 mg dose - started 04/05/24 - tolerating well Testing blood sugars - 3 TIMES DAILY - FBS------ 2 HR POST MEAL IN PM ---- AND HS-------- -----12 --------- 85-------- -----12/11 --------- 97-------- -------PM - 122------- ------HS --- 109------- ------12/1 0--------- -109------ ----152--- ------- 148------- ------12/0 9--------- - 79-------- ---126---- -------109 ---12/8--- 10-------- --134----- ----- 151------- ------12/7 ---99----- -----127-- --------10 4--------- -----12/6- --93------ ----147--- -------162 ----12/5-- 115------- --101----- -----166-- --12/4---- --------10 4--------- 106------- ---142---- 12/3------ ------103- --------16 2--------- -116------ ----104--- ------107- ---07/23--- ---------1 03-------- -116------ ----116Dr Brian to review blood sugars/ginger n.?was he ever on metformin? may opt to wait and see next a1c. Health Concerns Section Related Observation LastModified by Organization Detai ls LastModified Time None Recorded Concern Status LastModified by Organization Details LastModified Time None Recorded Payers Encounter Date Sequence Insurance Name Policy Number Policy Ozuna Covered Member ID Ozuna Member ID Guarantor Name 08/03/2024 1 [place] [employer] Elvin Sutherland [id number] Elvin Sutherland 08/03/2024 2 [place] [facility] Elvin Sutherland [id number] Elvin Sutherland Notes Date Note Type Note Provider Name and Address Organization Details Recorded Time 08/03/2024 text/html HX :[facility] 10/2023:Last HgbA1c - 7.6 (05/16) was 7.8 (02/13), - (was) 10/2023 = 8.3% = 8.1 (09/15); was 8.9 (05/15) was 8.7 (per pt by PCP POC); 8.2 (02/12); was 7.7 (01/12) was 7.1 (10/15); was 6.8 (06/13 and 03/13)-Barriers to taking any meds?noneCarb counting ? noPt understanding for small, med, large carb meals - dosing? n/a -Meal times/ typical meal includes:none - only eats once daily around 2 pm - see's GI d/t GI upset and hx pancreatitis/fatty [id number] - sand which or rice and beans water or juice - 08/15 - same size meal, eats all - terry fasterSnack: 10 pm - slice of bread and grape juice - 08/15 RN visit - drinks chocolate milk now -HS : 8- 9PM - wakes to eat for toast or piece of cake - 08/15 - stopped doing thisExercise routine : walks daily - 1 mileRecent illness: low back has been bothering him Seen By Dr Torres 04/05/24 HX updated :04/15: Still on pain meds for back. Hope to get steroid shot soon- told needs a1c under 7.5 before shot can be administered. Discussed BG will go up no matter what.On Linzess for constipation- helps from oxy. Can have diarrhea since GB out.04/15: Still sees José Miguel ( GI) - fatty liver - chronic pancreatitis-Schedu ladarius for updated elastography.Needs to improve BG to get shot for low back Elvin Mejia MD04/15: A1c better but not at goal. Tolerating well. Increase to 4.5.Pt. reports can't get injection until a1c is under 7.5.Since last a1c wasd 02/13, he can't get another till 05/16. If pain is severe, may need to consider benefits/risks of steroid injection vs. impact on BG.Steroid injections will likely raise BG even if a1c is under 7.5.As long as pt. monitors, can respond to higher BG post-injection.If very problematic, can discuss short term tx (insulin or sulfonylurea). RN VISIT 07/24/24 Returns for update on increasing Trulicity to 4.5 mg weekly, tolerance to increased dose and review of blood sugars.Tolerating fine- no s/e - no longer bloated - gets terry faster - feeling wellWeight loss since 04/15 - 13 pounds. Total weight loss 33 pounds in 14 monthsHad steroid injections in early Jun 2024 - blood sugars went high but then came down.- Concerns has depression - lost Dad in February 08, 2024 ( colon cancer) , Mother passed April 13, 2024 -was on renal dialysis, but had CVA 04/15 and Maternal Aunt - 04/23/24 [address] on [address]ialysis from [facility]ing Dr Guo - - Aug 2024Updated A1c - 7.6 % 04/2024 ( was) 10/2023 = 8.3% = 8.1 (09/15); was 8.9 (05/15) was 8.7 (per pt by PCP POC); 8.2 (02/12) Diabetic medications and current doses:1.) Pioglitzone 30 mg once daily (used for high TG and fatty liver in addition to DM)2. ) Trulicity 4.5 mg dose - started 04/05/24 - tolerating well Testing blood sugars - 3 TIMES DAILY - FBS------ 2 HR POST MEAL IN PM ---- AND HS --------- 85 --------- 97 PM - 122 HS --- 109 109--- 15 2 -- 148 79 ----126 ---------109------- -------12/8------- ---- 110 -----134 --------- 151 12 /7 99---- 127 -104 12/6 93 -147 -----162 ----12/5 -115 ----101 --------166-------- -------12/4-------- ----104 -------106--------- 142----- 12/3----- -------103--------- 162------ 116-- 07/24-- 104------ 107--- 07/23--- ---------103------- 116---- [address] Torres 10/10/24 = [facility] 3:30 PMNext Visit RN -Labs - Due for a1c this monthNurse: LAURA Arauz MD [address] [place] [address], [id number], [facility] 08/16/2024 13:18:52
== END 2024-09-07 12:52 | disposition home or self-care (01) ==
LOC: HO.MRI 12:51
PROVIDERS: PCP Family Medicine; Visit Provider Internal Medicine Gastroenterology
DX: K86.1 Other chronic pancreatitis (principal); R10.13 Epigastric pain
CPT/HCPCS: 74183; A9585

== ENCOUNTER → 2024-09-07 13:08 | Outpatient (BNV) | payer MEDICARE, MEDICAID, SELFPAY | PROVIDERS: PCP Family Medicine; Visit Provider Radiology Diagnostic Radiology | DX: K86.1 Other chronic pancreatitis (principal) | CPT/HCPCS: 74183 ==

== ENCOUNTER 2024-10-06 05:40 | Emergency (ER) | payer MEDICARE, MEDICAID, SELFPAY ==
--- NOTE | ~2024-10-06 | CT_ITS ---
EXAMINATION: CT ABDOMEN PELVIS WITH IV CONTRAST HISTORY: abd pain, acute on chronic pancreatitis? COMPARISON: Comparison is made with the prior examination dated 1122. TECHNIQUE: CT scan of the abdomen and pelvis was performed following administration of 85 mL Omnipaque 350 using standard departmental protocol. Coronal and sagittal reformatted images were generated and reviewed. Oral contrast material was not administered at the request of the referring physician. This CT exam was performed with one or more of the following dose reduction techniques: automated exposure control, adjustment of the mA and/or kV according to patient size, use of iterative reconstruction technique. DLP: 524 mGy-cm FINDINGS: LOWER CHEST: There is subsegmental atelectasis at both lung bases. There is no pleural effusion. CARDIOVASCULATURE: The heart is normal in size. There is no pericardial effusion. LIVER: The liver is normal in size and contour. No liver mass is identified. The hepatic and portal veins are patent. GALLBLADDER / BILE DUCTS: The gallbladder is surgically absent. There is no intra or extrahepatic biliary ductal dilatation. SPLEEN: The spleen is normal in size. No focal splenic lesion is identified. PANCREAS: Again seen are multiple calcifications in the pancreatic head consistent with chronic pancreatitis. The pancreatic duct is dilated and appears more prominent than on the prior study. No peripancreatic inflammatory stranding or fluid is seen to suggest acute pancreatitis. ADRENAL GLANDS: Within normal limits. KIDNEYS/RETROPERITONEUM: There are nonobstructing calculi in the mid to lower pole portions of the left kidney measuring up to 4 mm in size. There is no hydronephrosis. No renal masses are identified. LYMPH NODES: No abdominal or pelvic lymphadenopathy. VASCULATURE: The abdominal aorta is normal in caliber. MESENTERY/PERITONEUM: No free fluid. No masses. There is no free intraperitoneal gas. STOMACH: The stomach is collapsed, limiting evaluation. SMALL BOWEL: The small bowel is normal in caliber. COLON: The colon is unremarkable. APPENDIX: Normal. URINARY BLADDER/PELVIC ORGANS: The urinary bladder is unremarkable. The prostate is normal in size. BONES / SOFT TISSUES: No suspicious bony or soft tissue abnormalities. CT/CT abdomen pelvis w IV con IMPRESSION: 1. Findings consistent with chronic pancreatitis as described. No CT evidence of acute pancreatitis. 2. Left nephrolithiasis without evidence of ureteral obstruction. Electronically signed by: Torito Nguyen MD 10/06/2024 10:09 AM [facility]
[2024-10-06 05:41] VITALS: BP 110/74; PULSE 92; RESP 16; TEMP 36.2; O2SAT 100; BMI 26.1
[2024-10-06 05:59] LABS: MANUAL DIFF FLAG NO
[2024-10-06 06:00] LABS: Basophils Percent Auto 0.5 % (0-2); Eosinophils Absolute Auto 0.1 X10*3/uL (0.0-0.4); Eosinophils Percent Auto 1.5 % (0-4); Hematocrit 36.9 % (42.0-52.0); Hemoglobin 12.6 g/dl (14.0-18.0); Imm Gran Abs Auto 0.05 X10*3/uL (0.00-0.03); Imm Gran Pct Auto 0.8 % (0.0-0.4); Lymphocytes Absolute Auto 2.4 X10*3/uL (1.2-4.9); Lymphocytes Percent Auto 39.3 % (20-40); Mean Corpuscular HGB Conc 34.1 g/dl (31.0-36.0); Mean Corpuscular Hemoglobin 28.4 pg (27.0-33.0); Mean Corpuscular Volume 83.3 fL (80.0-98.0); Mean Platelet Volume 12.1 fL (9.4-12.4); Monocytes Absolute Auto 0.8 X10*3/uL (0.1-1.2); Monocytes Percent Auto 12.5 % (2-11); Neutrophils Absolute Auto 2.7 x10*3/uL (2.0-8.3); Neutrophils Percent Auto 45.4 % (45-73); Platelet Count 232 X10*3/uL (160-400); Red Blood Count 4.43 X10*6/uL (4.60-5.80); Red Cell Distribution Width 13.9 % (11.0-16.0)
[2024-10-06 06:17] LABS: Alanine Aminotransferase 17 U/L (0-40); Albumin Level 4.2 g/dL (3.5-5.0); Alkaline Phosphatase 68 U/L (39-117); Anion Gap 16 (12-20); Aspartate Amino Transferase 26 U/L (5-37); Bilirubin Direct 0.2 mg/dL (0.0-0.5); Bilirubin Total 0.3 mg/dL (0.0-1.0); Blood Urea Nitrogen 14 mg/dL (9-16); Calcium 10.3 mg/dL (8.4-10.2); Carbon Dioxide 23 mmol/L (22-29); Chloride 105 mmol/L (96-108); Creatinine Clr Calc Pharmacy 63.4; Estimated Glomerular Filt Rate > 60; Glucose Random 134 mg/dL (60-115); Lipase 101 U/L (8-78); Potassium 3.8 mmol/L (3.3-5.1); Sodium 140 mmol/L (135-145)
[2024-10-06 06:36] LABS: Influenza A PCR NEGATIVE (Negative); Influenza B PCR NEGATIVE (Negative); Resp Syncy Virus RNA Qual PCR NEGATIVE (Negative); SARS COV2 PCR INHOUSE NEGATIVE (Negative)
--- NOTE | 2024-10-06 06:39 | ED.GENADULT ---
HPI - General Adult General Chief complaint: Abdominal Pain Stated complaint: pancreas pain Time Seen by Provider: 10/06/24 06:35 Source: patient Mode of arrival: ambulatory Limitations: no limitations History of Present Illness ED Provider: Ember Alvarez PA-C HPI narrative: Patient is a 54 year old assigned male at with a history of anxiety and chronic pancreatitis presenting to the emergency department today with upper abdominal pain radiating to his back. Patient states that he began to have upper abdominal pain that radiates to his back last night and it feels like his usual pancreatitis flares. Patient denies any dizziness, lightheadedness, nausea, vomiting, fever, chills, blurry vision, double vision, loss of vision, chest pain, difficulty breathing, shortness of breath, back pain, night sweats, pain with urination, increased urinary frequency, increased urinary urgency, blood in his urine or stool, syncope or a near syncopal episode, recent trauma or falls, bowel incontinence, bladder incontinence, or any other complaints at this time. Onset (ago): hour(s) Location: abdomen Exacerbating factors: none Associated symptoms: denies other symptoms Treatments prior to arrival: none Related Data Home Medications ?Medication ?Instructions ?Recorded ?Confirmed fenofibrate 54 mg tablet 2 tab PO DAILY 12/08/20 08/31/24 fluoxetine 20 mg capsule 1 cap PO DAILY 12/08/20 08/31/24 nortriptyline 25 mg capsule 25 cap PO BEDTIME 12/08/20 08/31/24 ondansetron 4 mg disintegrating 1 tab PO Q8H PRN Nausea And 12/08/20 08/31/24 tablet Vomiting oxycodone 10 mg tablet 1 tab PO QID PRN Pain 12/08/20 08/31/24 pioglitazone 15 mg tablet 1 tab PO BID 12/08/20 08/31/24 rosuvastatin 40 mg tablet 1 tab PO DAILY 12/08/20 08/31/24 sumatriptan succinate 100 mg tablet 100 mg PO DAILY PRN Migraine 12/08/20 08/31/24 Headache tizanidine 4 mg tablet 1 tab PO TID 12/08/20 08/31/24 zolpidem 10 mg tablet 10 tab PO BEDTIME PRN Insomnia 12/08/20 08/31/24 cholecalciferol (vitamin D3) 25 25 mcg PO DAILY 11/27/21 08/31/24 mcg (1,000 unit) capsule docusate sodium 100 mg capsule 100 mg PO BID PRN Constipation 05/28/22 08/31/24 dulaglutide 3 mg/0.5 mL 4.5 mg subcut QWEEK 08/31/24 08/31/24 subcutaneous pen injector (Trulicity) Previous Rx's ?Medication ?Instructions ?Recorded omeprazole 40 mg capsule,delayed 40 mg PO BID 60 days #120 caps 06/24/23 release linaclotide 145 mcg capsule 145 mcg PO QAM #90 caps 04/25/24 (Linzess) [id number]-[id number]-[id number] 3 cap PO TID 90 days #810 caps 08/31/24 12,000-38,000-60,000 unit capsule,delayed rel (Creon) alprazolam 1 mg tablet (Xanax) 1 mg PO ONCE 1 day #1 tab 09/04/24 Allergies Allergy/AdvReac Type Severity Reaction Status Date / Time gabapentin [GABAPENTIN] Allergy Mild RASH Verified 10/06/24 05:43 famotidine [From Pepcid] Allergy Unknown RASH Verified 10/06/24 05:43 pregabalin [From LYRICA] Allergy Unknown VOMITING Verified 10/06/24 05:43 pantoprazole [From Protonix] Allergy Rash Verified 10/06/24 05:43 ibuprofen [From Advil] AdvReac Unknown STOMACH Verified 10/06/24 05:43 UPSET Review of Systems Constitutional: Constitutional: Reports no additional constitutional complaints, Denies chills, Denies fever(s) and Denies night sweats Eyes: Eyes: Reports no additional eye complaints, Denies blurry vision, Denies change in vision, Denies diplopia, Denies eye discharge, Denies loss of vision and Denies eye pain ENT: Denies dizziness Cardiovascular: Cardiovascular: Reports no additional cardiovascular complaints, Denies chest pain, Denies lightheadedness, Denies Loss of Consciousness and Denies dyspnea Respiratory: Respiratory: Reports no additional respiratory complaints and Denies dyspnea Gastrointestinal: Gastrointestinal: Reports no additional gastrointestinal complaints, Reports abdominal pain, Denies melena, Denies hematochezia, Denies change in bowel habits, Denies change in stool character, Denies nausea and Denies vomiting Genitourinary: Genitourinary: Reports no additional male genitourinary complaints, Denies hematuria, Denies oliguria, Denies difficulty urinating, Denies dysuria, Denies urinary frequency, Denies urinary hesitancy, Denies urinary incontinence and Denies urinary urgency Musculoskeletal: Musculoskeletal: Reports no additional musculoskeletal complaints, Denies numbness and Denies tingling Neurologic: Denies dizziness, Denies loss of vision, Denies numbness and Denies tingling Psychiatric: Psychiatric: Reports no additional psychiatric complaints Endocrine: Endocrine: Reports no additional endocrine complaints Hematologic/Lymphatic: Hematologic/Lymphatic: Reports no additional hematologic/lymphatic complaints Allergic/Immunologic: Allergic/Immunologic: Reports no additional allergic/immunologic complaints [facility] Past Medical History Attestation statement: The following information was validated with the patient. Source: old records reviewed and nursing notes reviewed Medical History Diabetes Kidney stone Pancreatitis Migraine HTN (hypertension) Depression Surgical History S/P laparoscopic cholecystectomy (02/12/21) History of elbow surgery Hx of endoscopy Hx of colonoscopy H/O neck surgery Social History Social History Household Members: Spouse Housing: Apartment Do you presently have visiting nurse or other home services: No Alcohol intake: never Patient Tobacco Use Status: Never used Tobacco Second Hand Smoke Exposure: No Advance Directives Date on File: 12/19/20 service: No Current occupational status: disabled Physical Exam ED Vital Signs: Vital Signs - 24 hr 10/06/24 05:41 10/06/24 10:09 10/06/24 10:52 Temperature 97.2 F 97.3 F 98.2 F Pulse Rate 92 108 H 79 Respiratory Rate 16 20 18 Blood Pressure 110/74 99/54 L 114/74 Pulse Oximetry 100 100 97 Oxygen Delivery Method Room Air Room Air 10/06/24 11:30 Temperature 98.2 F Pulse Rate 79 Respiratory Rate 18 Blood Pressure 114/74 Pulse Oximetry 97 Oxygen Delivery Method BMI result Body Mass Index 26.1 Const General: cooperative, no acute distress, alert and awake Nutritional Appearance: well nourished Orientation/consciousness: patient oriented x3 Limitations: no limitations HENMT Head: Yes normal to inspection and Yes atraumatic Ears: hearing grossly normal bilaterally and external ears normal General nose exam: Normal external nose present, no nasal discharge noted and no epistaxis Face and sinus: Yes normal facial exam, No abrasion and No laceration Mouth: Normal oral and palatal mucosa present, no drooling and no muffled voice Eyes General: appearance normal, both eyes and all related structures Periorbital: periorbital findings normal Eyelids: Yes eyelids normal Conjunctivae: conjunctivae normal Pupils: Equal, round and reactive pupils present EOM: EOMs intact bilaterally Neck Neck: Yes normal visual inspection, Yes full ROM and Yes no lymphadenopathy Chest Chest palpation & inspection: normal inspection of the chest Resp Effort & Inspection: normal respiratory effort and able to speak in complete sentences GI Inspection: Yes normal to inspection Palpation (GI): Soft to palpation, not firm, nontender and no guarding Neuro General: patient oriented x3, moves all extremities and CN's II-XI intact bilaterally Cranial nerves: Yes Equal, round and reactive pupils present Cognition (Neuro): normal cognition Extrem General: Yes normal to inspection, Yes full ROM and Yes capillary refill normal Psych Appearance: grossly normal Mental Status: mental status grossly normal Affect: normal affect Attitude: cooperative Thought process: Normal thought process present Thought content: Normal thought content present Insight: Good insight present (Psych) Medications Administered Discontinued Medications Generic Name Dose Route Start Last Admin Trade Name Mannq PRN Reason Stop Dose Admin Hydromorphone HCl 1 mg 10/06/24 07:27 10/06/24 07:53 Hydromorphone Hcl 1 Mg/Ml Syringe IVPUSH 10/06/24 07:28 1 mg ONCE ONE Administration Protocol Hydromorphone HCl 1 mg 10/06/24 08:49 10/06/24 09:01 Hydromorphone Hcl 1 Mg/Ml Syringe IVPUSH 10/06/24 08:50 1 mg ONCE ONE Administration Protocol Hydromorphone HCl 1 mg 10/06/24 10:53 10/06/24 11:25 Hydromorphone Hcl 1 Mg/Ml Syringe IVPUSH 10/06/24 10:54 1 mg ONCE ONE Administration Protocol Sodium Chloride 1,000 mls @ 999 mls/hr 10/06/24 06:45 10/06/24 09:02 Ns IV 10/06/24 07:45 Infused .Q1H1M MACKENZIE Infusion Sodium Chloride 1,000 mls @ 999 mls/hr 10/06/24 09:15 10/06/24 11:25 Ns IV 10/06/24 10:15 Infused .Q1H1M MACKENZIE Infusion Iohexol 100 ml 10/06/24 09:57 10/06/24 09:57 Iohexol 350 Mg/Ml 100 Ml Infus..Btl IV 10/06/24 09:58 85 ml ONCE ONE Administration Ondansetron HCl 4 mg 10/06/24 06:40 10/06/24 07:51 Ondansetron Hcl 4 Mg/2 Ml Vial IVPUSH 10/06/24 06:41 4 mg ONCE ONE Administration Medical Decision Making Medical Decision Making MDM Narrative: Patient is a 54 year old assigned male at with a history of anxiety and chronic pancreatitis presenting to the emergency department today with upper abdominal pain radiating to his back. Patient's physical exam was unremarkable. Patient's blood work showed a lipase of 101. Patient's CT abd/pelvis showed evidence of his chronic pancreatitis but was otherwise unremarkable. I spoke to Dr. Duffy, covering for Dr. Valdez, and he did not have any additional recommendations for this patient at this time given his current referral status to [facility] to address this pain. I called Dr. Dalton's office at [facility] who is scheduled to see the patient in October and left a message to expedite the patient's visit. I explained my physical exam findings as well as all test results to the patient. I answered all questions asked by the patient. Patient received IV fluids as well as multiple doses of IV dilaudid which, upon re-evaluation, he stated it helped his symptoms significantly. I offered the patient hospital admission for continued IV fluids and pain medication however, the patient declined - stating he would like to go home. I stressed the importance of the patient taking his medication as directed (either prescribed or as the over the counter packaging recommends). I stressed the importance of the patient following up with his primary care provider and his GI specialists. I stressed the importance of the patient returning to the emergency department immediately if his symptoms were to worsen or if he were to develop any dizziness, shortness of breath, difficulty breathing, chest pain, blurry vision, loss of vision, nausea, vomiting, abdominal pain, fever, chills, back pain, or any other complaints. Patient verbalized agreement and understanding with this treatment plan and discharge. Differential Diagnosis Differential Diagnoses: The differential diagnosis associated with the presentation includes Acute on chronic pancreatitis Admission/Observation Consideration of admission/observation: Escalation of care including admission/observation considered I offered the patient admission as noted in the MDM Rationale portion of this note - he declined. Consult Healthcare Provider Management of the patient was discussed with: [employer] Apprentice (spoke to the GI team as noted in the MDM Rationale portion of this note.) Lab Data [facility] Lab Attestation statement: I reviewed the patient's lab results. My interpretation of these results are in the MDM Rationale portion of this note. 10/06/24 05:54 10/06/24 05:54 Labs: Lab Results 10/06/24 Range/Units 05:54 WBC 6.0 (4.8-10.8) X10*3/uL RBC 4.43 L (4.60-5.80) X10*6/uL Hgb 12.6 L (14.0-18.0) g/dl Hct 36.9 L (42.0-52.0) % MCV 83.3 (80.0-98.0) fL MCH 28.4 (27.0-33.0) pg MCHC 34.1 (31.0-36.0) g/dl RDW 13.9 (11.0-16.0) % Plt Count 232 (160-400) X10*3/uL MPV 12.1 (9.4-12.4) fL Immature Gran % (Auto) 0.8 H (0.0-0.4) % Neut % (Auto) 45.4 (45-73) % Lymph % (Auto) 39.3 (20-40) % [place] % (Auto) 12.5 H (2-11) % Eos % (Auto) 1.5 (0-4) % Baso % (Auto) 0.5 (0-2) % Lymph # (Auto) 2.4 (1.2-4.9) X10*3/uL [place] # (Auto) 0.8 (0.1-1.2) X10*3/uL Eos # (Auto) 0.1 (0.0-0.4) X10*3/uL Baso # (Auto) 0.0 (0.0-0.2) X10*3/uL Abs Immat Gran (auto) 0.05 H (0.00-0.03) X10*3/uL Absolute Neuts (auto) 2.7 (2.0-8.3) x10*3/uL Absolute Nucleated RBC 0.000 (0.0-0.012) X10*3/uL Nucleated RBC % (auto) 0.0 (0.0-0.2) /100WBC Sodium 140 (135-145) mmol/L Potassium 3.8 (3.3-5.1) mmol/L Chloride 105 (96-108) mmol/L Carbon Dioxide 23 (22-29) mmol/L Anion Gap 16 (12-20) BUN 14 (9-16) mg/dL Creatinine 1.14 (0.5-1.4) mg/dL Estim Creat Clear Calc 63.4 Estimated GFR > 60 Random Glucose 134 H (60-115) mg/dL Calcium 10.3 H D (8.4-10.2) mg/dL Total Bilirubin 0.3 (0.0-1.0) mg/dL Direct Bilirubin 0.2 (0.0-0.5) mg/dL AST 26 (5-37) U/L ALT 17 (0-40) U/L Alkaline Phosphatase 68 (39-117) U/L Total Protein 8.0 (6.5-8.0) g/dL Albumin 4.2 (3.5-5.0) g/dL Lipase 101 H (8-78) U/L Influenza Type A (PCR) NEGATIVE (Negative) Influenza Type B (PCR) NEGATIVE (Negative) RSV RNA Qual (PCR) NEGATIVE (Negative) SARS-CoV-2 RNA (RT-PCR) NEGATIVE (Negative) Independent Interpretation I performed an independent interpretation of an: CT Scan Interpretation: My interpretation is in agreement with the radiologist's impression of this imaging study. Report Number: [id number]: Total DLP = 524.00 mGy-cm EXAMINATION: CT ABDOMEN PELVIS WITH IV CONTRAST HISTORY: abd pain, acute on chronic pancreatitis? COMPARISON: Comparison is made with the prior examination dated 1122. TECHNIQUE: CT scan of the abdomen and pelvis was performed following administration of 85 mL Omnipaque 350 using standard departmental protocol. Coronal and sagittal reformatted images were generated and reviewed. Oral contrast material was not administered at the request of the referring physician. This CT exam was performed with one or more of the following dose reduction techniques: automated exposure control, adjustment of the mA and/or kV according to patient size, use of iterative reconstruction technique. DLP: 524 mGy-cm FINDINGS: LOWER CHEST: There is subsegmental atelectasis at both lung bases. There is no pleural effusion. CARDIOVASCULATURE: The heart is normal in size. There is no pericardial effusion. LIVER: The liver is normal in size and contour. No liver mass is identified. The hepatic and portal veins are patent. GALLBLADDER / BILE DUCTS: The gallbladder is surgically absent. There is no intra or extrahepatic biliary ductal dilatation. SPLEEN: The spleen is normal in size. No focal splenic lesion is identified. PANCREAS: Again seen are multiple calcifications in the pancreatic head consistent with chronic pancreatitis. The pancreatic duct is dilated and appears more prominent than on the prior study. No peripancreatic inflammatory stranding or fluid is seen to suggest acute pancreatitis. ADRENAL GLANDS: Within normal limits. KIDNEYS/RETROPERITONEUM: There are nonobstructing calculi in the mid to lower pole portions of the left kidney measuring up to 4 mm in size. There is no hydronephrosis. No renal masses are identified. LYMPH NODES: No abdominal or pelvic lymphadenopathy. VASCULATURE: The abdominal aorta is normal in caliber. MESENTERY/PERITONEUM: No free fluid. No masses. There is no free intraperitoneal gas. STOMACH: The stomach is collapsed, limiting evaluation. SMALL BOWEL: The small bowel is normal in caliber. COLON: The colon is unremarkable. APPENDIX: Normal. URINARY BLADDER/PELVIC ORGANS: The urinary bladder is unremarkable. The prostate is normal in size. BONES / SOFT TISSUES: No suspicious bony or soft tissue abnormalities. CT/CT abdomen pelvis w IV con IMPRESSION: 1. Findings consistent with chronic pancreatitis as described. No CT evidence of acute pancreatitis. 2. Left nephrolithiasis without evidence of ureteral obstruction. Electronically signed by: Torito Nguyen MD 10/06/2024 10:09 AM EST Dictated By: Torito Nguyen MD Signed By: Electronically signed by Torito Nguyen MD 10/06/24 1009 Radiology Impression Discussion of test interpretation with radiology: I have reviewed the radiologist's reading. Critical Care Time Critical Care Time Critical Care Time: Yes Total Critical Care Time: 36 Attestation: I spent 36 minutes of Critical Care Time with this patient. This does not include time spent on separately reported billable procedures. Discharge Plan Discharge Clinical Impression: Acute on chronic pancreatitis Patient Disposition: Home, Self-Care Instructions: Pancreatitis (ED) Additional Instructions: Your work up today showed more of the same findings consistent with chronic pancreatitis. Follow up with your primary care provider, your GI specialist, and the [facility] GI team as scheduled. Return to the emergency department immediately if your symptoms worsen or if you are unable to tolerate anything by mouth, or you develop any dizziness, shortness of breath, difficulty breathing, chest pain, blurry vision, loss of vision, nausea, vomiting, abdominal pain, fever, chills, back pain, or any other complaints. Prescriptions: No Action Linzess 145 mcg capsule 145 mcg PO QAM Qty: 90 1RF alprazolam [Xanax] 1 mg tablet 1 mg PO ONCE 1 Days Qty: 1 0RF Rx Instructions: Take 1 hour before MRI scan pioglitazone 15 mg tablet 1 tab PO BID tizanidine 4 mg tablet 1 tab PO TID sumatriptan succinate 100 mg tablet 100 mg PO DAILY PRN (Reason: Migraine Headache) nortriptyline 25 mg capsule 25 cap PO BEDTIME zolpidem 10 mg tablet 10 tab PO BEDTIME PRN (Reason: Insomnia) fluoxetine 20 mg capsule 1 cap PO DAILY rosuvastatin 40 mg tablet 1 tab PO DAILY oxycodone 10 mg tablet 1 tab PO QID PRN (Reason: Pain) fenofibrate 54 mg tablet 2 tab PO DAILY ondansetron 4 mg tablet,disintegrating 1 tab PO Q8H PRN (Reason: Nausea And Vomiting) cholecalciferol (vitamin D3) 25 mcg (1,000 unit) capsule 25 mcg PO DAILY docusate sodium 100 mg capsule 100 mg PO BID PRN (Reason: Constipation) Creon 12,000-38,000 -60,000 unit capsule,delayed release(DR/EC) 3 cap PO TID 90 Days Qty: 810 2RF Rx Instructions: 1 capsule with the first bite and and two capsules in between meals And 1 capsule with each snack omeprazole 40 mg capsule,delayed release(DR/EC) 40 mg PO BID 60 Days Qty: 120 1RF Trulicity 3 mg/0.5 mL pen injector 4.5 mg subcut QWEEK Referrals: [facility] [Provider Group] (Follow up with your GI specialist.) Alfa Saeed MD [Primary Care Provider] - Stand Alone Forms: Work/School Release Interventions: ED Discharge Assessment Last Done: 10/06/24 11:30 Discharge Date/Time: 10/06/24 11:30 Print Language: Slovak
--- OUTSIDE RECORDS SUMMARY | 2024-10-06 06:48 | XMS_ITS | Data Portability ---
Author Organization [facility], [facility] Address [address] [place] [address] Care Team Providers Care Roving Teller Name Role Phone BHUPENDRA MARROQUIN Law Office Manager IMMANUEL KRISHNA Law Office Manager Unavailable TARAN SANCHEZ Primary Care Provider [phone] PARKER VALDEZ Top And Trim Worker [phone] Assessment Encounter Date Assessment Date Assessment LastModified by Organization Details LastModified Time 09/15/2023 09/15/2023 T2DM: since 2020 (a1c x 2 over 6.5%) after having had pre-diabetes- was on pioglitazone since 11/2018 for high TG and fatty liver. 09/15: On kelvin and trulicity 0.75. tolerating incretin. increase HYPERTRIGLYCERID EMIA: Values on rosuvastatin with fenofibrate holding 250-350. 2019- TG= 230 with addition of pioglitazone. High TG were 1914 in 07/2008. Was 877 in 06/2013. 10/13: On kelvin (15 bid) and rosuva 40 and fenofibrate (54 x 2). 11/11: Same meds as 2020. 10/15: No change but a1c creeping up and now at 7.1%. May need to add med. 10/15: doing well clinically. Discussed option of incretin with understanding that there might be an increased risk for pancreatitis but seems unlikely given the etiology of episode in the past (per conversation with GI). 05/15: Holding in mid 200s. actos only. a1c over 8%. ?BREWER vs. sglt2i vs incretin (if OK with GI)? 05/15: Called [facility]) re: incretin. LM with service. 09/15: Lipids stable with TG in lows 200s. NAFLD on u/s in 10/13. Had abnormal LFTs in past - c/w fatty liver. Better in 2019 (and fall 2018) 11/11: Elastography ([facility]) done- IGR to median ratio is <15% so liver stiffness is acceptable. FIB-4 score is 1.85 (intermediate; not normal but not advanced). 05/15: followed by GI (José Miguel) Enhanced Provider time spent performing enhanced activities which may include, but are not limited to: reviewing tests, obtaining and/or reviewing patient history; ordering medications, test or procedures; EMR documentation; communication with patient, family, caregiver(s), VNA; pre-visit prep time communication with specialists, ER staff. Time spent: 38 (minutes) 09/15 f/u 6 months. 09/15: TG stable in 200s. a1c 8.1 (09/15); was 8.9 (05/15) - Increase trulicity to 1.5 Needs to improve BG to get shot for low back Elvin Mejia MD [email or web address] Not available 09/19/2023 14:34:56 10/28/2023 10/28/2023 T2DM: since 2020 (a1c x 2 over 6.5%) after having had pre-diabetes- was on pioglitazone since 11/2018 for high TG and fatty liver. 09/15: On kelvin and trulicity 0.75. tolerating incretin. increase HYPERTRIGLYCERID EMIA: Values on rosuvastatin with fenofibrate holding 250-350. 2018- TG= 230 with addition of pioglitazone. High TG were 1914 in 07/2008. Was 877 in 06/2013. 10/13: On kelvin (15 bid) and rosuva 40 and fenofibrate (54 x 2). 11/11: Same meds as 2020. 10/15: No change but a1c creeping up and now at 7.1%. May need to add med. 10/15: doing well clinically. Discussed option of incretin with understanding that there might be an increased risk for pancreatitis but seems unlikely given the etiology of episode in the past (per conversation with GI). 05/15: Holding in mid 200s. actos only. a1c over 8%. ?BREWER vs. sglt2i vs incretin (if OK with GI)? 05/15: Called [facility] ([facility]) re: incretin. LM with service. 09/15: Lipids stable with TG in lows 200s. NAFLD on u/s in 10/13. Had abnormal LFTs in past - c/w fatty liver. Better in 2019 (and fall 2018) 11/11: Elastography ([facility]) done- IGR to median ratio is <15% so liver stiffness is acceptable. FIB-4 score is 1.85 (intermediate; not normal but not advanced). 05/15: followed by [facility]) f/u 6 months. 09/15: TG stable in 200s. a1c 8.1 (09/15); was 8.9 (05/15) - Increase trulicity to 1.5 Needs to improve BG to get shot for low back Elvin Mejia MD [email or web address] Not available 01/16/2024 16:52:50 12/07/2023 12/07/2023 T2DM: since 2020 (a1c x 2 over 6.5%) after having had pre-diabetes- was on pioglitazone since 11/2018 for high TG and fatty liver. 09/15: On kelvin and trulicity 0.75. tolerating incretin. increase HYPERTRIGLYCERID EMIA: Values on rosuvastatin with fenofibrate holding 250-350. 2019- TG= 230 with addition of pioglitazone. High TG were 1914 in 07/2008. Was 877 in 06/2013. 10/13: On kelvin (15 bid) and rosuva 40 and fenofibrate (54 x 2). 11/11: Same meds as 2020. 10/15: No change but a1c creeping up and now at 7.1%. May need to add med. 10/15: doing well clinically. Discussed option of incretin with understanding that there might be an increased risk for pancreatitis but seems unlikely given the etiology of episode in the past (per conversation with GI). 05/15: Holding in mid 200s. actos only. a1c over 8%. ?BREWER vs. sglt2i vs incretin (if OK with GI)? 05/15: Called [facility]) re: incretin. LM with service. 09/15: Lipids stable with TG in lows 200s. NAFLD on u/s in 10/13. Had abnormal LFTs in past - c/w fatty liver. Better in 2019 (and fall 2018) 11/11: Elastography ([facility]) done- IGR to median ratio is <15% so liver stiffness is acceptable. FIB-4 score is 1.85 (intermediate; not normal but not advanced). 05/15: followed by [facility]) f/u 6 months. 09/15: TG stable in 200s. a1c 8.1 (09/15); was 8.9 (05/15) - Increase trulicity to 1.5 Needs to improve BG to get shot for low back Elvin Mejia MD 12/14: a1c still over 8%. Hope to see improvement with incretin. If pain becomes more severe before next a1c, can consider checking CGM and assessing TIR and estimated a1c. [email or web address] Not available 12/07/2023 18:56:39 04/05/2024 04/05/2024 T2DM: since 2020 (a1c x 2 over 6.5%) after having had pre-diabetes- was on pioglitazone since 11/2018 for high TG and fatty liver. 09/15: On kelvin and trulicity 0.75. tolerating incretin. increase 04/15: Doing well on trulicity 3.0 with MET and KELVIN HYPERTRIGLYCERID EMIA: Values on rosuvastatin with fenofibrate holding 250-350. 2018- TG= 230 with addition of pioglitazone. High TG were 1914 in 07/2008. Was 877 in 06/2013. w 10/13: On kelvin (15 bid) and rosuva 40 and fenofibrate (54 x 2). 11/11: Same meds as 2020. 10/15: No change but a1c creeping up and now at 7.1%. May need to add med. 10/15: doing well clinically. Discussed option of incretin with understanding that there might be an increased risk for pancreatitis but seems unlikely given the etiology of episode in the past (per conversation with GI). 05/15: Holding in mid 200s. actos only. a1c over 8%. ?BREWER vs. sglt2i vs incretin (if OK with GI)? 05/15: Called [facility]) re: incretin. LM with service. 09/15: Lipids stable with TG in lows 200s. 04/15: TG stable. NAFLD on u/s in 10/13. Had abnormal LFTs in past - c/w fatty liver. Better in 2019 (and fall 2018) 11/11: Elastography ([facility]) done- IGR to median ratio is <15% so liver stiffness is acceptable. FIB-4 score is 1.85 (intermediate; not normal but not advanced). 05/15: followed by GI (José Miguel) 04/15: Still sees José Miguel Enhanced Provider time spent performing enhanced activities which may include, but are not limited to: reviewing tests, obtaining and/or reviewing patient history; ordering medications, test or procedures; EMR documentation; communication with patient, family, caregiver(s), VNA; pre-visit prep time communication with specialists, ER staff. Time spent: 39 (minutes) 04/15 f/u 6 months. 09/15: TG stable in 200s. a1c 8.1 (09/15); was 8.9 (05/15) - Increase trulicity to 1.5 Needs to improve BG to get shot for low back Elvin Mejia MD 04/15: A1c better but not at goal. Tolerating well. Increase to 4.5. sylvia Not available 04/05/2024 13:09:31 Plan of Treatment Reminders Order Date Submit Date Provider Last Modified By Organization Details Last Modified Time Details Appointments Follow Up, 40 2024 03:30P M Immanuel Krishna MD Not available Not available Not available Lab HbA1c (hemog lobin A1c), blood 2023 024 [facility], [address] [place] [address], [id number], 10/28/2023 15:50:09 microa lbumin /creat inine, ratio panel, urine 2023 024 [facility], [address] [place] [address], [id number], 10/28/2023 16:33:30 lipid panel, serum 2023 024 [facility], [address] [place] [address], [id number], 10/28/2023 16:03:20 CMP, serum or plasma 2023 024 [facility], [address] [place] [address], [id number], 11/02/2023 11:16:49 HbA1c (hemog lobin A1c), blood 2023 024 [facility], [address] [place] [address], [id number], 02/11/2024 14:19:11 lipid panel, serum 2023 024 [facility], [address] [place] [address], [id number], 02/11/2024 15:40:08 microa lbumin /creat inine, ratio panel, urine 2023 024 [facility], [address] [place] [address], [id number], 02/14/2024 10:11:33 CMP, serum or plasma 2023 024 [facility], [address] [place] [address], [id number], 02/11/2024 15:40:07 HbA1c (hemog lobin A1c), blood 2023 024 [facility], [address] [place] [address], [id number], 05/19/2024 15:46:46 CMP, serum or plasma 2023 025 [facility], [address] [place] [address], [id number], 08/24/2024 16:01:55 lipid panel, serum 2023 025 [facility], [address] [place] [address], [id number], 08/24/2024 15:53:20 microa lbumin /creat inine, ratio panel, urine [facility]23 [email or web address], [address] [place], [id number], 09/11/2024 13:09:36 HbA1c (hemog lobin A1c), blood 2023 025 [facility], [address] [place], [id number], 08/24/2024 14:12:11 Referral None record ed. 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 Please evalua te and compar e to previo us study. 2023 024 [email or web address] [facility], [address] [place], [id number], 04/05/2024 13:19:02 Surgeries None record ed. Imaging None record ed. Medication Orders Trulic ity 4.5 mg/0.5 mL subcut aneous pen inject or 2023 024 [facility], [address] [place], [address], 04/05/2024 13:12:47 Trulic ity 3 mg/0.5 mL subcut aneous pen inject or 2023 024 [facility], [address] [place], [address], 08/02/2024 12:03:07 fenofi brate 54 mg tablet 2023 024 ana guaman [id number], [address] [facility] [place], [id number], 10/28/2023 15:11:58 Accu-C hek Aby Plus test strips 2023 024 ana guaman [id number], [address] [place], [id number], 10/28/2023 15:11:58 fenofi brate 120 mg tablet 2023 024 [email or web address] [id number], [address] [facility] [place], [address], 10/28/2023 13:30:14 Trulic ity 1.5 mg/0.5 mL subcut aneous pen inject or 2023 024 [email or web address] [id number], [address] [facility] [place], [address], 04/05/2024 12:17:27 Patient TargetsNo targets recorded. Patient Instructions Encounter Date Encounter Id Patient Instructions Last Modified By Organization Details Last Modified Time 09/15/2023 [id number] - Stay on same medications for now. - Avoid fatty foods - Get labs done as ordered- every 6 months - Continue pioglitazone as 15 mg twice a day. - Stay on rosuvastatin and fenofibrate - If a1c increases further, you may need an additional medication to keep diabetes in control. Not available 04/06/2023 09:53:26 6+ months/ 40 minutes (in person) CCM discussed- 09/29/22- src Not available 04/06/2023 09:53:26 12/07/2023 [id number] 1.) - Increase Trulicity to 3 mg weekly after completing rest of your supply of 1.5 mg weekly. 2.) - Come back for nurse/doctor visit after taking 3 mg x at least 4 weeks - January 2024. 3)- Lab one week prior to RN/MD appt [email or web address] Not available 12/07/2023 19:00:24 ENDO RN visit in January 2024. [email or web address] Not available 12/07/2023 19:00:32 04/05/2024 [id number] - Stay on same medications for now. - Increase Trulicity to 4.5 mg weekly. Side effects of this type of medication are mostly stomach (GI) with some nausea and occasional vomiting. Some people also have constipation or diarrhea. These medications have a small and rare risk for pancreatitis. Would encourage you to contact office or ER in case of severe nausea/vomiting and/or abdominal pain. - Get labs done as ordered- every 6 months - Continue pioglitazone as 30mg daily. - Stay on rosuvastatin and fenofibrate [email or web address] Not available 04/05/2024 13:09:06 6+ months/ 40 minutes (in person) CCM discussed- 09/29/22- src Not available 04/03/2024 10:36:36 Reason for Referral None Reported. Results Created Date Observation Date Name Description Value Unit Range Abnormal Flag Note LastModifiedBy Organization Detail LastModifiedTime 08/27/19 24 08/27/2023 HGB A1C hemoglobin A1C 8.1 % 4.8-6. 0 high Goal: <7% in Patie nts with Diabe benton An A1c betwe en 5.7-6 .4% is ident ified as pre-d iabet es and sugge sts risk for progr essio n to diabe benton Two a1c value s of 6.5% or highe r is consi stent with a diagn osis of diabe benton but may need furth er confi rmati on Not Available [address], [id number], 08/27/2023 12:53:26 08/27/1908/27/2023 HGB A1C estimated average glucose 185.8 mg/dL Not Available [address], [address], 08/27/2023 12:53:26 08/27/1908/27/2023 COMP. METAB OLIC PANEL glucose 144 mg/dL 70-100 high Not Available [address], [address], 08/27/2023 14:13:32 08/27/19 24 08/27/2023 COMP. METAB OLIC PANEL BUN 13 mg/dL 7-18 Not Available [address], [address], 08/27/2023 14:13:32 08/27/19 24 08/27/2023 COMP. METAB OLIC PANEL creatinine 1.3 mg/dL 0.8-1. 3 Not Available [address], [address], 08/27/2023 14:13:32 08/27/19 24 08/27/2023 COMP. METAB OLIC PANEL B/C 10.0 ratio Not Available [address], [address], 08/27/2023 14:13:32 08/27/19 24 08/27/2023 COMP. METAB OLIC PANEL GFR >=60ML /MIN mL/mi n normal >=60m L/min - Mary l or midly reduc ed <60mL /min- Decre ased kidne y funct ion <15mL /min - Kidne y failu re [facility] calcu lates estim ated Glome rular Filtr ation Rate (eGFR ) using the Chron ic Kidne y Disea se Epide miolo gy Colla borat ion (CKD- EPI) Equat ion (Sarah davison et. al 2020) as recom jose d by the Natio nal Kidne y Found ation . eGFR is based on age, serum creat inine , and sex. CKD-E PI does not calcu late eGFR by race, does not apply to child darrius (age <18 years ), and shoul d not be used in pregn raine. Not Available [address], [address], 08/27/2023 14:13:32 08/27/19 24 08/27/2023 COMP. METAB OLIC PANEL sodium 143 mmol/ L 136-14 5 Not Available [address], [address], 08/27/2023 14:13:32 08/27/19 24 08/27/2023 COMP. METAB OLIC PANEL potassium 4.0 mmol/ L 3.5-5. 1 Not Available [address], [address], 08/27/2023 14:13:32 08/27/19 24 08/27/2023 COMP. METAB OLIC PANEL chloride 104 mmol/ L 96-107 Not Available [address], [address], 08/27/2023 14:13:32 08/27/19 24 08/27/2023 COMP. METAB OLIC PANEL anion gap 10.2 5.0-15 .0 Not Available [address], [address], 08/27/2023 14:13:32 08/27/19 24 08/27/2023 COMP. METAB OLIC PANEL CO2 29 mmol/ L 21-32 Not Available [address], [address], 08/27/2023 14:13:32 08/27/19 24 08/27/2023 COMP. METAB OLIC PANEL calcium 9.8 mg/dL 8.5-10 .3 Not Available [address], [address], 08/27/2023 14:13:32 08/27/19 24 08/27/2023 COMP. METAB OLIC PANEL total protein 8.1 g/dL 6.4-8. 2 Not Available [address], [address], 08/27/2023 14:13:32 08/27/19 24 08/27/2023 COMP. METAB OLIC PANEL albumin 4.2 g/dL 3.4-5. 0 Not Available [address], [address], 08/27/2023 14:13:32 08/27/19 24 08/27/2023 COMP. METAB OLIC PANEL globulin 3.9 g/dL Not Available [address], [address], 08/27/2023 14:13:32 08/27/19 24 08/27/2023 COMP. METAB OLIC PANEL A/G 1.1 ratio 0.8-2. 0 Not Available [address], [address], 08/27/2023 14:13:32 08/27/19 24 08/27/2023 COMP. METAB OLIC PANEL total bilirubin 0.30 mg/dL 0.00-1 .00 Not Available [address], [address], 08/27/2023 14:13:32 08/27/19 24 08/27/2023 COMP. METAB OLIC PANEL AST 22 U/L 0-37 Not Available [address], [address], 08/27/2023 14:13:32 08/27/19 24 08/27/2023 COMP. METAB OLIC PANEL ALT 29 U/L 6-63 Not Available [address], [address], 08/27/2023 14:13:32 08/27/19 24 08/27/2023 COMP. METAB OLIC PANEL alk. phos. 67 U/L 50-136 Not Available [address], [address], 08/27/2023 14:13:32 08/27/19 24 08/27/2023 LIPID PANEL cholesterol 112 mg/dL <200 mg/dl Yogesh able 200-2 39 mg/dl Borde rline High >240 mg/dl High Not Available [address], [address], 08/27/2023 14:13:33 08/27/19 24 08/27/2023 LIPID PANEL triglyceride s 214 mg/dL <150 mg/dL Mary l 150-1 99 mg/dL Borde rline High 200-4 99 mg/dL High >500 mg/dL Very High Not Available [address], [address], 08/27/2023 14:13:33 08/27/19 24 08/27/2023 LIPID PANEL direct HDL 47 mg/dL <40 mg/dl - Major Risk for CHD >60 mg/dl - Negat ricardo Risk for CHD Not Available [address], [address], 08/27/2023 14:13:33 08/27/19 24 08/27/2023 LDL - CALCU LATED LDL - calculated 22.2 RISK CATEG ORY LDL GOAL _ CHD or CHD Risk Equiv alent s <100 mg/dl (10-y ear risk >20%) 2+ Risk Facto rs <130 mg/dl (10-y ear risk <= 20%) 0-1 Risk Facto r??? <160 mg/dl ??? Almos t all peopl e with 0-1 risk facto r have a 10 year risk <10%, thus 10 year risk asses ment in peopl e with 0-1 risk facto r is not franny devora. Not Available [address], [address], 08/27/2023 14:13:34 08/27/19 24 08/27/2023 MICRO ALBUM IN/CR EATIN INE RATIO PANEL , URINE microalbumin 8.1 mg/L 1.3-20 .0 Not Available [address], [address], 08/27/2023 14:33:16 08/27/19 24 08/27/2023 MICRO ALBUM IN/CR EATIN INE RATIO PANEL , URINE creatinine urine 169.2 mg/dL 30.0-1 25.0 high Not Available [address], [address], 08/27/2023 14:33:16 08/27/19 24 08/27/2023 MICRO ALBUM IN/CR EATIN INE RATIO PANEL , URINE microalb/cre at ratio 4.8 mg/g_ creat 0.0-29 .0 Not Available [address], [address], 08/27/2023 14:33:16 10/28/19 24 10/28/2023 HGB A1C hemoglobin A1C 8.3 % 4.8-6. 0 high Goal: <7% in Patie nts with Diabe benton An A1c betwe en 5.7-6 .4% is ident ified as pre-d iabet es and sugge sts risk for progr essio n to diabe benton Two a1c value s of 6.5% or highe r is consi stent with a diagn osis of diabe benton but may need furth er confi rmati on Not Available [address], [address], 10/28/2023 15:50:09 10/28/19 24 10/28/2023 HGB A1C estimated average glucose 191.5 mg/dL Not Available [address], [address], 10/28/2023 15:50:09 10/28/19 24 10/28/2023 LIPID PANEL cholesterol 117 mg/dL <200 mg/dl Yogesh able 200-2 39 mg/dl Borde rline High >240 mg/dl High Not Available [address], [address], 10/28/2023 16:03:20 10/28/19 24 10/28/2023 LIPID PANEL triglyceride s 177 mg/dL <150 mg/dL Mary l 150-1 99 mg/dL Borde rline High 200-4 99 mg/dL High >500 mg/dL Very High Not Available [address], [address], 10/28/2023 16:03:20 10/28/19 24 10/28/2023 LIPID PANEL direct HDL 51 mg/dL <40 mg/dl - Major Risk for CHD >60 mg/dl - Negat ricardo Risk for CHD Not Available [address], [address], 10/28/2023 16:03:20 10/28/19 24 10/28/2023 LDL - CALCU LATED LDL - calculated 30.6 RISK CATEG ORY LDL GOAL _ CHD or CHD Risk Equiv alent s <100 mg/dl (10-y ear risk >20%) 2+ Risk Facto rs <130 mg/dl (10-y ear risk <= 20%) 0-1 Risk Facto r??? <160 mg/dl ??? Almos t all peopl e with 0-1 risk facto r have a 10 year risk <10%, thus 10 year risk asses ment in peopl e with 0-1 risk facto r is not franny lozoya. Not Available [address], [address], 10/28/2023 16:03:21 10/28/19 24 10/28/2023 MICRO ALBUM IN/CR EATIN INE RATIO PANEL , URINE microalbumin 15.6 mg/L 1.3-20 .0 Not Available [address], [address], 10/28/2023 16:33:30 10/28/19 24 10/28/2023 MICRO ALBUM IN/CR EATIN INE RATIO PANEL , URINE creatinine urine 214.0 mg/dL 30.0-1 25.0 high Not Available [address], [address], 10/28/2023 16:33:30 10/28/19 24 10/28/2023 MICRO ALBUM IN/CR EATIN INE RATIO PANEL , URINE microalb/cre at ratio 7.3 mg/g_ creat 0.0-29 .0 Not Available [address], [address], 10/28/2023 16:33:30 10/28/19 24 11/02/2023 COMP. METAB OLIC PANEL glucose 167 mg/dL 70-100 high Not Available [address], [address], 11/02/2023 11:16:49 10/28/19 24 11/02/2023 COMP. METAB OLIC PANEL BUN 10 mg/dL 7-18 Not Available [address], [address], 11/02/2023 11:16:49 10/28/19 24 11/02/2023 COMP. METAB OLIC PANEL creatinine 1.2 mg/dL 0.8-1. 3 Not Available [address], [address], 11/02/2023 11:16:49 10/28/19 24 11/02/2023 COMP. METAB OLIC PANEL B/C 8.3 ratio Not Available [address], [address], 11/02/2023 11:16:49 10/28/19 24 11/02/2023 COMP. METAB OLIC PANEL GFR >=60ML /MIN mL/mi n normal >=60m L/min - Mary l or midly reduc ed <60mL /min- Decre ased kidne y funct ion <15mL /min - Kidne y failu re [facility] calcu lates estim ated Glome rular Filtr ation Rate (eGFR ) using the Chron ic Kidne y Disea se Epide miolo gy Colla borat ion (CKD- EPI) Equat ion (Sarah r et. al 2020) as recom jose d by the Natio nal Kidne y Found ation . eGFR is based on age, serum creat inine , and sex. CKD-E PI does not calcu late eGFR by race, does not apply to child darrius (age <18 years ), and shoul d not be used in pregn raine. Not Available [address], [address], 11/02/2023 11:16:49 10/28/19 24 11/02/2023 COMP. METAB OLIC PANEL sodium 143 mmol/ L 136-14 5 Not Available [address], [address], 11/02/2023 11:16:49 10/28/19 24 11/02/2023 COMP. METAB OLIC PANEL potassium 4.0 mmol/ L 3.5-5. 1 Not Available [address], [address], 11/02/2023 11:16:49 10/28/19 24 11/02/2023 COMP. METAB OLIC PANEL chloride 103 mmol/ L 96-107 Not Available [address], [address], 11/02/2023 11:16:49 10/28/19 24 11/02/2023 COMP. METAB OLIC PANEL anion gap 13.5 5.0-15 .0 Not Available [address], [address], 11/02/2023 11:16:49 10/28/19 24 11/02/2023 COMP. METAB OLIC PANEL CO2 27 mmol/ L 21-32 Not Available [address], [address], 11/02/2023 11:16:49 10/28/19 24 11/02/2023 COMP. METAB OLIC PANEL calcium 10.1 mg/dL 8.5-10 .3 Not Available [address], [address], 11/02/2023 11:16:49 10/28/19 24 11/02/2023 COMP. METAB OLIC PANEL total protein 8.2 g/dL 6.4-8. 2 Not Available [address], [address], 11/02/2023 11:16:49 10/28/19 24 11/02/2023 COMP. METAB OLIC PANEL albumin 4.4 g/dL 3.4-5. 0 Not Available [address], [address], 11/02/2023 11:16:49 10/28/19 24 11/02/2023 COMP. METAB OLIC PANEL globulin 3.8 g/dL Not Available [address], [address], 11/02/2023 11:16:49 10/28/19 24 11/02/2023 COMP. METAB OLIC PANEL A/G 1.2 ratio 0.8-2. 0 Not Available [address], [address], 11/02/2023 11:16:49 10/28/19 24 11/02/2023 COMP. METAB OLIC PANEL total bilirubin 0.30 mg/dL 0.00-1 .00 Not Available [address], [address], 11/02/2023 11:16:49 10/28/19 24 11/02/2023 COMP. METAB OLIC PANEL AST 30 U/L 0-37 Not Available [address], [address], 11/02/2023 11:16:49 10/28/19 24 11/02/2023 COMP. METAB OLIC PANEL ALT 32 U/L 6-63 Not Available [address], [address], 11/02/2023 11:16:49 10/28/19 24 11/02/2023 COMP. METAB OLIC PANEL alk. phos. 96 U/L 50-136 Not Available [address], [address], 11/02/2023 11:16:49 02/11/20 24 02/11/2024 HGB A1C hemoglobin A1C 7.8 % 4.8-6. 0 high Goal: <7% in Patie nts with Diabe benton An A1c betwe en 5.7-6 .4% is ident ified as pre-d iabet es and sugge sts risk for progr essio n to diabe benton Two a1c value s of 6.5% or highe r is consi stent with a diagn osis of diabe bentno but may need furth er confi rmati on Not Available [address], [address], 02/11/2024 14:19:10 02/11/20 24 02/11/2024 HGB A1C estimated average glucose 177.2 mg/dL Not Available [address], [address], 02/11/2024 14:19:10 02/11/20 24 02/11/2024 COMP. METAB OLIC PANEL glucose 131 mg/dL 70-100 high Not Available [address], [address], 02/11/2024 15:40:07 02/11/20 24 02/11/2024 COMP. METAB OLIC PANEL BUN 13 mg/dL 7-18 Not Available [address], [address], 02/11/2024 15:40:07 02/11/20 24 02/11/2024 COMP. METAB OLIC PANEL creatinine 1.3 mg/dL 0.8-1. 3 Not Available [address], [address], 02/11/2024 15:40:07 02/11/20 24 02/11/2024 COMP. METAB OLIC PANEL B/C 10.0 ratio Not Available [address], [address], 02/11/2024 15:40:07 02/11/20 24 02/11/2024 COMP. METAB OLIC PANEL GFR >=60ML /MIN mL/mi n normal >=60m L/min - Mary l or midly reduc ed <60mL /min- Decre ased kidne y funct ion <15mL /min - Kidne y failu re [facility] calcu lates estim ated Glome rular Filtr ation Rate (eGFR ) using the Chron ic Kidne y Disea se Epide miolo gy Colla borat ion (CKD- EPI) Equat ion (Sarah r et. al 2020) as recom jose d by the Najma rashid . eGFR is based on age, serum creat inine , and sex. CKD-E PI does not calcu late eGFR by race, does not apply to child darrius (age <18 years ), and shoul d not be used in pregn raine. Not Available [address], [address], 02/11/2024 15:40:07 02/11/20 24 02/11/2024 COMP. METAB OLIC PANEL sodium 143 mmol/ L 136-14 5 Not Available [address], [address], 02/11/2024 15:40:07 02/11/20 24 02/11/2024 COMP. METAB OLIC PANEL potassium 4.1 mmol/ L 3.5-5. 1 Not Available [address], [address], 02/11/2024 15:40:07 02/11/20 24 02/11/2024 COMP. METAB OLIC PANEL chloride 104 mmol/ L 96-107 Not Available [address], [address], 02/11/2024 15:40:07 02/11/20 24 02/11/2024 COMP. METAB OLIC PANEL anion gap 10.2 5.0-15 .0 Not Available [address], [address], 02/11/2024 15:40:07 02/11/20 24 02/11/2024 COMP. METAB OLIC PANEL CO2 29 mmol/ L 21-32 Not Available [address], [address], 02/11/2024 15:40:07 02/11/20 24 02/11/2024 COMP. METAB OLIC PANEL calcium 10.0 mg/dL 8.5-10 .3 Not Available [address], [address], 02/11/2024 15:40:07 02/11/20 24 02/11/2024 COMP. METAB OLIC PANEL total protein 8.3 g/dL 6.4-8. 2 high Not Available [address], [address], 02/11/2024 15:40:07 02/11/20 24 02/11/2024 COMP. METAB OLIC PANEL albumin 4.4 g/dL 3.4-5. 0 Not Available [address], [address], 02/11/2024 15:40:07 02/11/20 24 02/11/2024 COMP. METAB OLIC PANEL globulin 3.9 g/dL Not Available [address], [address], 02/11/2024 15:40:07 02/11/20 24 02/11/2024 COMP. METAB OLIC PANEL A/G 1.1 ratio 0.8-2. 0 Not Available [address], [address], 02/11/2024 15:40:07 02/11/20 24 02/11/2024 COMP. METAB OLIC PANEL total bilirubin 0.30 mg/dL 0.00-1 .00 Not Available [address], [address], 02/11/2024 15:40:07 02/11/20 24 02/11/2024 COMP. METAB OLIC PANEL AST 27 U/L 0-37 Not Available [address], [address], 02/11/2024 15:40:07 02/11/20 24 02/11/2024 COMP. METAB OLIC PANEL ALT 32 U/L 6-63 Not Available [address], [address], 02/11/2024 15:40:07 02/11/20 24 02/11/2024 COMP. METAB OLIC PANEL alk. phos. 68 U/L 50-136 Not Available [address], [address], 02/11/2024 15:40:07 02/11/20 24 02/11/2024 LIPID PANEL cholesterol 109 mg/dL <200 mg/dl Yogesh able 200-2 39 mg/dl Borde rline High >240 mg/dl High Not Available [address], [address], 02/11/2024 15:40:08 02/11/20 24 02/11/2024 LIPID PANEL triglyceride s 123 mg/dL <150 mg/dL Mary l 150-1 99 mg/dL Borde rline High 200-4 99 mg/dL High >500 mg/dL Very High Not Available [address], [address], 02/11/2024 15:40:08 02/11/20 24 02/11/2024 LIPID PANEL direct HDL 52 mg/dL <40 mg/dl - Major Risk for CHD >60 mg/dl - Negat ricardo Risk for CHD Not Available [address], [address], 02/11/2024 15:40:08 02/11/20 24 02/11/2024 LDL - CALCU LATED LDL - calculated 32.4 RISK CATEG ORY LDL GOAL _ CHD or CHD Risk Equiv alent s <100 mg/dl (10-y ear risk >20%) 2+ Risk Facto rs <130 mg/dl (10-y ear risk <= 20%) 0-1 Risk Facto r??? <160 mg/dl ??? Almos t all peopl e with 0-1 risk facto r have a 10 year risk <10%, thus 10 year risk asses ment in peopl e with 0-1 risk facto r is not neces devora. Not Available [address], [address], 02/11/2024 15:40:08 02/11/20 24 02/14/2024 MICRO ALBUM IN/CR EATIN INE RATIO PANEL , URINE microalbumin 17.3 mg/L 1.3-20 .0 Not Available [address], [address], 02/14/2024 10:11:33 02/11/20 24 02/14/2024 MICRO ALBUM IN/CR EATIN INE RATIO PANEL , URINE creatinine urine 259.8 mg/dL 30.0-1 25.0 high Not Available [address], [address], 02/14/2024 10:11:33 02/11/20 24 02/14/2024 MICRO ALBUM IN/CR EATIN INE RATIO PANEL , URINE microalb/cre at ratio 6.7 mg/g_ creat 0.0-29 .0 Not Available [address], [address], 02/14/2024 10:11:33 05/19/20 24 05/19/2024 HGB A1C hemoglobin A1C 7.6 % 4.8-6. 0 high Goal: <7% in Patie nts with Diabe benton An A1c betwe en 5.7-6 .4% is ident ified as pre-d iabet es and sugge sts risk for progr essio n to diabe benton Two a1c value s of 6.5% or highe r is consi stent with a diagn osis of diabe benton but may need furth er confi rmati on Not Available [address], [address], 05/19/2024 15:46:46 05/19/20 24 05/19/2024 HGB A1C estimated average glucose 171.4 mg/dL Not Available [address], [address], 05/19/2024 15:46:46 08/24/1908/24/2024 HGB A1C hemoglobin A1C 7.2 % 4.8-6. 0 high Goal: <7% in Patie nts with Diabe benton An A1c betwe en 5.7-6 .4% is ident ified as pre-d iabet es and sugge sts risk for progr essio n to diabe benton Two a1c value s of 6.5% or highe r is consi stent with a diagn osis of diabe benton but may need furth er confi rmati on Not Available [address], [address], 08/24/2024 14:12:11 08/24/1908/24/2024 HGB A1C estimated average glucose 159.9 mg/dL Not Available [address], [address], 08/24/2024 14:12:11 08/24/1908/24/2024 LIPID PANEL cholesterol 139 mg/dL <200 mg/dl Yogesh able 200-2 39 mg/dl Borde rline High >240 mg/dl High Not Available [address], [address], 08/24/2024 15:53:20 08/24/19 25 08/24/2024 LIPID PANEL triglyceride s 145 mg/dL <150 mg/dL Mary l 150-1 99 mg/dL Borde rline High 200-4 99 mg/dL High >500 mg/dL Very High Not Available [address], [address], 08/24/2024 15:53:20 08/24/19 25 08/24/2024 LIPID PANEL direct HDL 70 mg/dL <40 mg/dl - Major Risk for CHD >60 mg/dl - Negat ricardo Risk for CHD Not Available [address], [address], 08/24/2024 15:53:20 08/24/19 25 08/24/2024 LDL - CALCU LATED LDL - calculated 40 RISK CATEG ORY LDL GOAL _ CHD or CHD Risk Equiv alent s <100 mg/dl (10-y ear risk >20%) 2+ Risk Facto rs <130 mg/dl (10-y ear risk <= 20%) 0-1 Risk Facto r??? <160 mg/dl ??? Almos t all peopl e with 0-1 risk facto r have a 10 year risk <10%, thus 10 year risk asses ment in peopl e with 0-1 risk facto r is not franny lozoya. Not Available [address], [address], 08/24/2024 15:53:21 08/24/19 25 08/24/2024 COMP. METAB OLIC PANEL glucose 108 mg/dL 70-100 high Not Available [address], [address], 08/24/2024 16:01:55 08/24/19 25 08/24/2024 COMP. METAB OLIC PANEL BUN 20 mg/dL 7-18 high Not Available [address], [address], 08/24/2024 16:01:55 08/24/19 25 08/24/2024 COMP. METAB OLIC PANEL creatinine 1.5 mg/dL 0.8-1. 3 high Not Available [address], [address], 08/24/2024 16:01:55 08/24/19 25 08/24/2024 COMP. METAB OLIC PANEL B/C 13.3 ratio Not Available [address], [address], 08/24/2024 16:01:55 08/24/19 25 08/24/2024 COMP. METAB OLIC PANEL GFR 55.7 mL/mi n abnormal >=60m L/min - Mary l or midly reduc ed <60mL /min- Decre ased kidne y funct ion <15mL /min - Kidne y failu re [facility] calcu lates estim ated Glome rular Filtr ation Rate (eGFR ) using the Chron ic Kidne y Disea se Epide miolo gy Colla borat ion (CKD- EPI) Equat ion (Sarah r et. al 2020) as recom jose d by the [facility]io nal [facility] ation . eGFR is based on age, serum creat inine , and sex. CKD-E PI does not calcu late eGFR by race, does not apply to child darrius (age <18 years ), and shoul d not be used in pregn raine. Not Available [address], [address], 08/24/2024 16:01:55 08/24/19 25 08/24/2024 COMP. METAB OLIC PANEL sodium 142 mmol/ L 136-14 5 Not Available [address], [address], 08/24/2024 16:01:55 08/24/19 25 08/24/2024 COMP. METAB OLIC PANEL potassium 4.6 mmol/ L 3.5-5. 1 Not Available [address], [address], 08/24/2024 16:01:55 08/24/19 25 08/24/2024 COMP. METAB OLIC PANEL chloride 101 mmol/ L 96-107 Not Available [address], [address], 08/24/2024 16:01:55 08/24/19 25 08/24/2024 COMP. METAB OLIC PANEL anion gap 15.9 5.0-15 .0 high Not Available [address], [address], 08/24/2024 16:01:55 08/24/19 25 08/24/2024 COMP. METAB OLIC PANEL CO2 25 mmol/ L 21-32 Not Available [address], [address], 08/24/2024 16:01:55 08/24/19 25 08/24/2024 COMP. METAB OLIC PANEL calcium 10.9 mg/dL 8.5-10 .3 high ANA LILIA=V erifi ed by Shwetha cedillo Not Available [address], [address], 08/24/2024 16:01:55 08/24/19 25 08/24/2024 COMP. METAB OLIC PANEL total protein 8.8 g/dL 6.4-8. 2 high Not Available [address], [address], 08/24/2024 16:01:55 08/24/19 25 08/24/2024 COMP. METAB OLIC PANEL albumin 4.6 g/dL 3.4-5. 0 Not Available [address], [address], 08/24/2024 16:01:55 08/24/19 25 08/24/2024 COMP. METAB OLIC PANEL globulin 4.2 g/dL Not Available [address], [address], 08/24/2024 16:01:55 08/24/19 25 08/24/2024 COMP. METAB OLIC PANEL A/G 1.1 ratio 0.8-2. 0 Not Available [address], [address], 08/24/2024 16:01:55 08/24/19 25 08/24/2024 COMP. METAB OLIC PANEL total bilirubin 0.60 mg/dL 0.00-1 .00 Not Available [address], [address], 08/24/2024 16:01:55 08/24/19 25 08/24/2024 COMP. METAB OLIC PANEL AST 29 U/L 0-37 Not Available [address], [address], 08/24/2024 16:01:55 08/24/19 25 08/24/2024 COMP. METAB OLIC PANEL ALT 27 U/L 6-63 Not Available [address], [address], 08/24/2024 16:01:55 08/24/19 25 08/24/2024 COMP. METAB OLIC PANEL alk. phos. 54 U/L 50-136 Not Available [address], [address], 08/24/2024 16:01:55 08/24/19 25 08/30/2024 ALBUM IN, RANDO M URINE W/CRE ATINI NE creatinine, random urine 243 mg/dL 20-320 normal Not Available [facility] [address], [address], 08/30/2024 18:13:36 08/24/19 25 08/30/2024 ALBUM IN, RANDO M URINE W/CRE ATINI NE albumin, urine 1.8 mg/dL normal Refer ence Range Not estab lishe d Not Available [facility] [address], [address], 08/30/2024 18:13:36 08/24/19 25 08/30/2024 ALBUM IN, RANDO M URINE W/CRE ATINI NE albumin/crea tinine ratio, random urine 7 mg/g_ creat <30 normal The ADA defin es abnor malit ies in album in excre tion as follo ws: Album inuri a Categ ory Resul t (mg/g creat inine ) Mary l to Mildl y incre ased <30 Moder ately incre ased 30-29 9 Sever francesca incre ased > OR = 300 The ADA recom mends that at least two of three speci mens colle cted withi n a 3-6 month perio d be abnor mal befor e consi daniel g a patie nt to be withi n a diagn ostic categ ory. Not Available [facility] [address] Rell Hicks, Luis A, [place], [address], 08/30/2024 18:13:36 04/11/20 24 04/11/2024 US liver with elast ograp hy US LIVER WITH ELASTO GRAPHY Referr ing clinic lori's provid ed indica tion for this examin ation in Epic: Outsid e Radiol ogy Order; fatty liver TECHNI QUE: Focuse d ultras ound evalua tion of the liver with elasto graphy . Volume tric sweeps were obtain ed and review ed. COMPAR BYRON: 2020 FINDIN GS: LIVER: Diffus francesca echoge jeison liver parenc hyma is most compat ible with steato sis. No focal lesion s. ELASTO GRAPHY : 10 valid measur ements were obtain ed. Median shear wave speed is: 1.99 m/s. IQR to median ratio: 5 %. Gallbl adder: Surgic ally absent . Biliar y: No intrah epatic biliar y ductal dilata tion. The common bile duct measur es 2 mm. Right kidney measur es 11.5 cm in length , and is within normal limits . IMPRES ELLIS: Increa sed hepati c echoge nicity consis tent with hepato cellul ar diseas e. This most likely repres ents hepati c steato sis. No focal liver lesion visual ized. The IQR to median ratio is less than 15% and the measur e of liver stiffn ess is theref ore accept able. The median shear wave speed is 1.99 m/s. This is betwee n 1.7-2. 1 m/s, which is sugges tive of compen sated advanc ed chroni c liver diseas e. RECOMM ENDATI ON: Consid er furthe r testin g for confir mation of compen sated advanc ed chroni c liver diseas e. SOCIET Y OF RADIOL OGISTS IN ULTRAS OUND CONSEN JEFFREY: In the settin g of elevat ed liver functi on tests, nonfas ting, vascul ar conges tion, etc., the stage of liver fibros is may be overes timate d. In some patien ts with NAFLD, the cut-of f values for compen sated advanc ed chroni c liver diseas e may be lower. In causes other than viral hepati tis and NAFLD, the cut-of f values are not well establ ished. Electr onical ly Signed by: Lazarus mo on 024 2:12 PM Interp reted by: Lazarus Leon MD Signed by: Lazarus Leon MD 4 CC Recipi ents: Taran Sanchez MD - Fax Ander Valdez MD - Mail Final result PS : Fatty liver AO/IVC - patent Panc - could not be well visual ized due to overly ing bowel gas Liver - hypere choic, hepati c veins are patent MPV - patent , hepato petal flow GB - s/p cholec ystect kenny, fossa unrema rkable CBD - WNL RT kid - WNL, no hydro IMMANUEL R ART N IMMANUEL R ART N [facility] [address] [place] [address], [address], 04/28/2024 18:24:04 04/11/20 24 04/11/2024 US, liver No observ ation record ed. [email or web address] [address], [address], 04/28/2024 16:26:08 Result Notes None recorded. Problems Name Problem SNOMED Code Status Onset Date Resolution Date Notes Provider Name and Address Organization Details Recorded Time Pure hypergly ceridemi a 623950892 Active 2007 Not Available [facility] 4 05:31:29 Gastroes ophageal reflux disease 358159743 Active Not Available [facility] 4 05:31:29 Abdomina l pain 59140987 Completed 07/12/2013 Not Available [facility] 3 02:01:24 Right upper quadrant pain 622766279 Completed 200807/12/2013 Not Available [facility] 3 02:03:18 Pure hypercho lesterol emia 125502091 Completed 200706/02/2021 Removal Reason: really is just TG Immanuel Krishna MD [address] [place] [address], [phone] , [facility] 16:25:08 Prediabe benton 995505590 Completed 202006/02/2021 Removal Reason: transiti on to DMT2 Immanuel Krishna MD [address] [place] [address], [phone] , [facility] 16:25:20 Non-alco holic fatty liver 876109944 Active 2020 Not Available [facility] 4 05:31:29 History of pancreat itis 42720392520 107 Active 2020 Not Available [facility] 4 05:31:29 Type 2 diabetes mellitus without complica tion 811670938 Active 2022 coded 11/19/21 Virtual Visit Not Available [facility] 4 05:31:29 Uncontro lled type 2 diabetes mellitus 218428617 Active 2022 Not Available [facility] 4 05:31:29 Notes:Some problems listed i n Documents: #[id number], #[id number] could not be added to this patient's chart. Please review these documents and add these problems to the patient's chart manually as needed. Problem Notes None recorded. Procedures Surgical History Date Name Laterality Status Provider Name and Address Organization Details Recorded Time 06/10/20 23 Insulin Teaching completed Arlene Thomson RN [facility] 06/10/2023 15:23:46 02/13/20 21 cholecystectomy completed Arlene Thomson RN [facility] 06/02/2021 15:20:06 10/05/19 20 Tassoni - EGD completed Sharad Horn MD [address] [place] [address], [phone], [facility] 10/05/2019 12:39:37 Imaging Results Imaging Date Name Status LastModified by Organization Details LastModified Time 04/11/2024 US liver with elastography completed [facility] [address] [place], [address], 04/28/2024 18:24:04 04/11/2024 [email or web address] [address] [place], [address], 04/28/2024 16:26:08 Procedure Notes None recorded. Medical Equipment None Reported. Allergies Allergen ID Allergen Name Allergen Category Reaction Reaction Severity Criticality Documentation Date Start Date Code Code System Note Provider Name and Address Organization Details Recorded Time 107674 gabapenti n medicatio n headache Not available Not available 04/06/2012 49684 Rx[facility] 14:52:44 371939 Lyrica medicatio n Not available Not available Not available 04/06/2012 17969 1 RxNorm tight ness in throa t, not swell ing Zaira López MA [facility] 2 14:52:44 8288 Pepcid medicatio n rash Not available Not available 11/29/2008 40320 8 RxNorm GI upset Not Available [facility] 1 06:05:20 8289 Advil medicatio n nausea vomiting Not available Not available Not available 11/29/2008 56487 0 RxNorm Not Available [facility] 1 06:05:20 Medications Name Sig Start [...] completed Not Available Not Available Not Available [employer] Lancets 33 gauge 02/06 completed Not Available Not Available Not Available Aleve 220 mg capsule Take by oral route as needed. 02/06 completed Not Available Not Available Not Available Accu-Chek Aby Plus test strips USE TO TEST BLOOD SUGAR THREE TIMES DAILY 2024 active Not Available Not Available Not Avai lable Accu-Chek Aby Plus Meter active Not Available [...] 4.5 mg/0.5 mL subcutane ous pen injector active Not Available Not Available Not Available Vitals Date Recorded Body height Body mass index (BMI) Body weight Heart rate Systolic blood pressure Diastolic blood pressure Provider Name and Address Organization Details Last Updated DateTime 4 164.47 cm 30 kg/m2 12424.7 5 g 98 /min 118 mm[Hg] 74 mm[Hg] Naila Burch LPN [facility] 4 12:29:06 Date Recorded Body height Body mass index (BMI) Body weight Heart rate Systolic blood pressure Diastolic blood pressure Provider Name and Address Organization Details Last Updated DateTime 164.47 cm 29.4 kg/m2 20813.1 g 93 /min 120 mm[Hg] 78 mm[Hg] Alicja Urena LPN [facility] 12:21:27 Date Recorded Body height Body mass index (BMI) Body weight Provider Name and Address Organization Details Last Updated DateTime 08/03/2024 164.47 cm 27.2 kg/m2 55749.32 g Arlene Thomson RN [facility] 08/03/2024 10:22:22 Social History Question Answer Notes [...] How Many Children Do You Have? 0 Information not available 07/09/2011 Do You Use [...] Organization Details LastModified Time Mother Hyperlipidem yury chace Not available 10/2015 14:32:27 Notes:mother 73 live diabete s HTN, hypercholesterolemia, dialysis secondary-2015 father 84 live no contact, CABG x 4 in 80's 6 sisters live, healthy generally, one with asthma. MGM of [place] at age 60's 11/08- Family OK. 06/10- Sisters healthy. No kids. 06/12: family OK. Mom alive in [place] (76). 11/11: Family OK. 10/15: No changes. Medical History Condition Response Hyperlipidemia Y Immunizations Vaccine Type Date Status Note Provider Nam e and Address Organization Details Recorded Time COVID-19, mRNA, LNP-S, PF, 30 mcg/0.3 mL dose 12/25/2020 completed Not Available [facility] 4 05:31:29 COVID-19, mRNA, LNP-S, PF, 30 mcg/0.3 mL dose 07/09/2021 completed Not Available [facility] 4 05:31:29 COVID-19, mRNA, LNP-S, bivalent, PF, 30 mcg/0.3 mL dose 06/24/2022 completed Not Available [facility] 4 05:31:29 Past Encounters Encounter ID Performer Location Encounter Start Date Encounter Closed Date Diagnosis/Indication Diagnosis SNOMED-CT Code Diagnosis ICD10 Code Diagnosis Note [id number] Endocr[facility], [address] [place] [address] 08/01/2008 07:59:32 09/12/2008 02:02:29 [id number] LAB - [address] [place] [address] 08/01/2008 09:36:52 08/01/2008 09:37:01 [id number] Endocrino logy, [address] [place] [address] 09/06/2008 09:44:29 09/12/2008 02:02:29 [id number] Endocrino logy, [address] [place] [address] 11/29/2008 13:02:54 12/06/2008 10:58:31 [id number] Endocrino logy, [address] [place] [address] 01/04/2009 11:04:31 01/17/2009 10:41:04 [id number] Endocrino logy, [address] [place] [address] 04/10/2009 10:13:41 04/10/2009 11:21:46 [id number] LAB - [address] [place] [address] 04/10/2009 10:55:35 04/10/2009 10:55:41 [id number] Endocrino logy, [facility] [place] [place] [address] 07/03/2009 08:02:14 07/08/2009 09:17:02 [id number] Endocrino logy, [facility] [place] [place] [id number] 09/06/2009 10:43:36 09/06/2009 14:16:58 [id number] Endocrino logy, [facility] [place] [place] [id number] 1 11/08/2009 10:42:53 11/08/2009 12:44:26 [id number] Endocrino logy, [facility] [place] [place] Wade02[address] 1 04/23/2010 09:50:35 04/23/2010 11:10:07 [id number] Endocrino logy, [facility] [place] [place] [address] 03/05/2011 10:44:54 03/05/2011 11:57:46 [id number] Endocrino logy, [address] [place] [address] 06/04/2011 11:01:31 06/04/2011 12:36:05 [id number] Endocrino logy, [facility] [place] [place] [address] 09/30/2011 14:47:07 09/30/2011 15:24:03 [id number] Endocrino logy, [facility] [place] [place] [address] 04/06/2012 14:13:03 04/06/2012 15:50:32 [id number] Bhupendra Marroquin PA-C Endocrino logy, [address] [place] [address] 06/20/2012 10:40:38 06/20/2012 11:56:35 [id number] Simona Santoyo Endocrino logy, [facility] [place] [place] [address] 12/22/2012 08:45:34 12/22/2012 09:34:[id number] [facility] [place] [place] [address] 03/03/2013 13:15:39 03/03/2013 14:51:58 [id number] Endocrino logy, [address] [address] 06/28/2013 09:11:53 06/28/2013 09:57:10 Pure hyperglyceridemia [id number] Pt TG 800's but he admits he has not been adhereing to a diet until a few days ago when he began to be NPO due to nausea, diarrhea and discomfort . Will check amylase, lipase and lft today given hx of recurrent pancreatit is. Told pt that he has to adhere to diet and elevated TG increase his risk for pancreatit s. Cont crestor 40 mg daily and increase fihs oil to 2 tabs in am and 2 in pm of 1200mg fish oil. If TG do not lower than consider lovaza. Cont with lipids labs q 3 months. Cont f/u with Dr. Flor for duodenal changes on EGD and pancreatic mass monitoring . 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 Pt had testing Dec at [facility] as well and is to have f/u studies yearly with them. Hx- Pt on crestor because statin, tricor and lopid all have not worked for patient (see previous records). Niacin caused burning pain and flushing even with asa and being taken at night. Never tried with pectin. 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 Pt had testing Dec at [facility] as well and is to have f/u studies yearly with them. Hx- Pt on crestor because statin, tricor and lopid all have not worked for patient (see previous records). Niacin caused burning pain and flushing even with asa and being taken at night. Never tried with pectin. 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 Pt had testing Dec at [facility] as well and is to have f/u studies yearly with them. Hx- Pt on crestor because statin, tricor and lopid all have not worked for patient (see previous records). Niacin caused burning pain and flushing even with asa and being taken at night. Never tried with pectin. 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 Pt had testing Dec at [facility] as well and is to have f/u studies yearly with them. Hx- Pt on crestor because statin, tricor and lopid all have not worked for patient (see previous records). Niacin caused burning pain and flushing even with asa and being taken at night. Never tried with pectin. [id number] Evelia Darrin Endocrino logy, [address] [address] 12/11/2014 15:05:55 12/11/2014 15:46:15 Pure hyperglyceridemia [id number] cont crestor 40 mg and fenofibrat e 54 mg daily. continue with diet restrictio n and try to increase exercise as tolerated. f/u yearly with labs q 3 months. for constipati on try miralax 1 tablespoon in 8 oz of water daily and increase the number of tablespoon s until bowels moving freely and no longer nauseate. Keep f/u with Dr. Flor next month as well. 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 Pt had testing Dec at [facility] as well and is to have f/u studies yearly with them. Hx- Pt on crestor because statin, tricor and lopid all have not worked for patient (see previous records). Niacin caused burning pain and flushing even with asa and being taken at night. Never tried with pectin. Palpitations [id number] Wi ll check TSH with upcoming labs since pt not sure if has been done. I do not expect it to be abnormal given that he has no other clinical s/s of hyperthyro idism but will rule out subclinica l hyperthyro idism. Recommende d he be sure and contact PCP to schedule holter monitor appt that he had to cancel when he had the flu. Constipation [id number] se e above. [id number] Bhupendra Marroquin PA-C Endocrino logy, [address] [id number] 12/24/2015 13:38:45 12/24/2015 14:48:59 Chest pain [id number] R07.9 SOB and racing heart concerning . Pt too young to have these sx. Not acutely ill today at time of visit and not experienci ng sx at visit. BP normal and HR 88 but pt indicating difficulty carrying groceries into the house, walking into office from parking lot or walking room to room in house. Pt was to have had holter monitor with PCP. Spoke to PCP and got pt appt 12/30/15 3:20pm to be seen and will try to get him tread mill stress testing before then given hyperlipid emia, fm hx of CABG x4 in father. Pure hyperglyceridemia [id number] E78.1 Cont fenfibrate 54mg take 2 tabs daily and labs again in 3 months. TG stable and LDL stable. [id number] Bhupendra Marroquin PA-C Endocrino logy, [address] [address] 01/14/2017 14:12:47 01/14/2017 15:24:44 Pure hyperglyceridemia [id number] E78.1 Order in chart for labs and pt received call to make appt. Asked him to be sure and do this on way out in order to have updated labs. Would like him to get his labs this week. Assuming TG stable and remaining in 200's then no change to medication and have pt continue to work on diet and exercise and f/u in a year with labs every 3-6 months. If TG rise then will have him come in sooner than a year. Cont fenfibrate 54mg take 2 tabs daily. Crestor 40 mg daily. TG stable and LDL stable. [id number] Bhupendra Marroquin PA-C Endocrino logy, [address] [address] 03/01/2018 11:04:10 03/01/2018 11:51:38 Pure hyperglyceridemia [id number] E78.21 October 2017 labs to goal. Cont fenofibrat e 54 mg- 2 tabs daily and rosuvastat in 40 mg daily. Continue to work on diet and exercise and f/u in a year with labs every 3-6 months. (can be q 6 months as long as lipids stable) If TG rise then will have him come in sooner than a year. Chronic pancreatitis 235 933247 K86.1 hx of recurrent pancreatit is with recent episode October 2017. Sees GI and has f/u October Dr. Flor. Not symptomati c today. TG stable (see above) counseled him regarding ETOH, diet and lifestyle to prevent recurrent episodes. Functional disorder of intestine 84345061 K59.9 Per pt, intestinal obstructio n/dysmotil ity in October 2017. Requesting records from [place] for chart and review. Advised pt to contact PCP about referral to different surgeon if not able to get reschedule d with original surgeon since has been changed by office twice now per pt report. He indicates he will call Dr. Lyon to see how to proceed. [id number] Bhupendra Marroquin PA-C Endocrino logy, [address] [address] 09/13/2018 10:59:09 09/13/2018 11:54:10 Pure hyperglyceridemia 263017325 E78.1 Need to find records from hospitaliz ations and testing as well as get A1c result from PCP. Cont fenofibrat e 54 mg- 2 tabs daily and rosuvastat in 40 mg daily. Continue to work on diet and exercise Pt followed by GI and should continue to do so to find etiology for chronic pancreatit is. F/u up after updated labs. Chronic pancreatitis 235 941762 K86.1 hx of recurrent pancreatit is with recent episode October 2017.Now with 2 more episodes. There is no endocrine reason for pancreatit is. TG in 300's do not cause pancreatit is. Needs to be sure with GI that gallstone pancreatit is and other causes are not present. Pt needing to f/u in [place] per GI here. Pt previously saw Dr. Flor. Pt not symptomati c today Functional disorder of intestine 35157183 K59.9 Per pt, intestinal obstructio n/dysmotil ity dg in October 2017. Again no records of this have been received since diagnosis. Pt needing to have f/u with GI in [place] and needing to follow up with both PCP and GI office to see when appt from referral is scheduled. Blood gluc ose outside reference range 062280487 R73.09 reported abnormal A1c meeting criteria for diagnosis of diabetes but no access to results. If truly diabetes, then may need to lower dose of metformin given pt symptoms of dizziness and reported glucose repeatedly under 100. Also important to know diagnosis as if truly diabetic now, may consider actos in setting of elevated glucose and diabetes (low dose 15 mg) instead of metformin for benefit to both TG and glucose.If IFG then would NOT use actos. [id number] Immanuel Krishna MD Endocrino logy, [address] [address] 11/18/2018 13:48:23 11/18/2018 14:40:03 Pure hyperglyceridemia 602263561 E78.1 TG consistent ly between 250-350 on max rosuvastat in and low dose fenofibrat e. Continue current regimen. Prediabetes 580986403 R7 3.03 with FBG consistent ly under 126mg/dl but a1c of 6.5%. A1c values can be a problem in minority population s. Also would need to have 2 a1c values over 6.5% and he now has one. Fingerstic k a1c values cannot be used dx.But patient reports values over 150 in evening after dinner. It would seem like it would be worth considerin g putting him back on metformin (given a1c and report of fingerstic k BG over 200 at home). However, alternativ e would be to use pioglitazo ne given high TG and potential fatty liver (see below) Will try to get in touch with PCP [place] about this. History of pancreatitis [id number] 9107 Z87.19 Doesn't seem to be primarily related to TG since he has had bouts when TG were only in 300s. Liver func tion tests outside reference range 095624199 R94.5 ast/alt= 66/48; was 85/70 in 9.18.May be c/w fatty liver.This would another reason to consider meds to improve insulin sensitivit y.Pioglita zone at low dose might be worth considerin g- would improve TG and help fatty liver. [id number] Immanuel Krishna MD Endocrino logy, [address] [address] 05/24/2019 13:35:37 05/24/2019 15:01:28 Pure hyperglyceridemia 973615562 E78.1 Started pioglitazo ne in 11/2018. TG slightly down. Will be interested to see if less fatty liver.Sugg est liver u/s soon but he is going to [place] in 07/19/19. Had MRI done 2-3 weeks ago.Hope to see copy of report for that. TG have been between 250-350 on max rosuvastat in and low dose fenofibrat e.Down to 230 on kelvin 30 mg. Hope to see further improvemen Lopez discussed importance of exercise.A gree needs to meet with RD- can be either through PCP or can be done here. Prediabetes [id number] R7 3.03 With FBG consistent ly under 126 mg/dl but a1c of 6.5% (11/08). Now on pioglitazo ne. Note- Rx written in early 12/09 and filled then but not again till late January and then again in late 04/2019. A1c values can be a less reliable in minority population s. Also would need to have 2 a1c values over 6.5% and he now has one. Fingerstic k a1c values cannot be used for dx. Follow a1c q 6 monthsRepo rts having some concerns about values in 70s on 30 mg pill. This is unusual with pioglitazo ne. But will try 15 mg bid. History of pancreatitis [id number] 9107 Z87.19 Doesn't seem to be primarily related to TG since he has had bouts when TG were only in 300s. Non-alcoho lic fatty liver [id number] K76.0 ast= 43 (05/11; was 66); was 85 (05/10)ALT= 43 (05/11; was 48); was 70 in 05/10. Pioglitazo ne prescribed in early 12/09 but not refilled until late 02/08 and then in late 05/11. However, seems to be helping with TG and LFTs likely from fatty liver. Would like to see cc of any imaging studies. Suggest update of liver u/s but need to make sure he stays on pioglitazo ne x 3 months consistent ly [id number] Ness Yeung RN [facility], [address] [address] 10/05/2019 11:30:52 10/05/2019 13:41:26 [id number] Immanuel Krishna MD Endocrino logy, [address] [address] 02/07/2020 14:47:33 02/08/2020 07:38:24 Pure hyperglyceridemia 205375753 E78.1 Started pioglitazo ne in 11/2018. TG slightly down. Had wanted to have him get liver u/s but he was going to [place] in 07/19/19. Had MRI done 2-3 weeks ago.Hope to see copy of report for that. None received in 2019. TG have been between 250-350 on max rosuvastat in and low dose fenofibrat e.Down to 230 on kelvin 30 mg.02/09: 156/227 (was 230) /47 / Stable and not increasing Also discussed importance of exercise. Prediabetes 353308014 R7 3.03 With FBG consistent ly under 126 mg/dl but a1c of 6.5% (11/08). Now on pioglitazo ne. A1c had gone down to 6% but up slightly to 6.3 (02/09).Nee d to make sure he is not progressin g to over T2DM. A1c values can be a less reliable in minority population s. Also would need to have 2 a1c values over 6.5% and he now has one. Fingerstic k a1c values cannot be used for dx. Note- Rx written in early 12/09 and filled then but not again till late January and then again in late 04/2019. Follow a1c q 6 monthsRepo rts having some concerns about values in 70s on 30 mg pill. This is unusual with pioglitazo ne. But seems to be going better on 15 mg bid. Non-alcoho lic fatty liver 415141277 K76.0 AST= 36 (02/09): was 43 (05/11); was 66(11/08); was 70 (05/10); was 68 (11/07); ALT= 52 (02/09); was 43 (05/11); was 48 (11/08); was 85 (05/10); was 67 (11/07) Pioglitazo ne prescribed in early 12/09 but not refilled until late 02/08 and then in late 05/11. However, seems to be helping with TG and LFTs likely from fatty liver. Would like to see cc of any imaging studies. Suggest update of liver u/s but need to make sure he stays on pioglitazo ne x 3 months consistent ly History of pancreatitis [id number] 9107 Z87.19 Doesn't seem to be primarily related to TG since he has had bouts when TG were only in 300s. [id number] Immanuel Krishna MD Endocrino logy, [address] [address] 10/01/2020 13:38:02 10/01/2020 18:29:21 Pure hyperglyceridemia 829522664 E78.1 Started pioglitazo ne in 11/2018. TG slightly down. Had wanted to have him get liver u/s but he was going to [place] in 07/19/19. TG better at 153 in 10/13. was 227 (02/09); was 230 (05/11); was 314 (11/08); No recent images studies. [place] [facility] [place]atosis without focal pancreatic lesions (04/[place]). [facility]- Jailyn López. TG have been between 250-350 on max rosuvastat in and low dose fenofibrat e. Down to 230 on kelvin 30 mg. 02/09: 156/227 (was 230) /47 / 64 Stable and not increasing Also discussed importance of exercise. Prediabetes 332431398 R7 3.03 With FBG consistent ly under 126 mg/dl but a1c of 6.3 (2020) and 2019. Was 6.5% (11/08). Now on pioglitazo ne 15 bid. A1c had gone down to 6% (06/10) but then up slightly to 6.3 (02/09). Need to make sure he is not progressin g to over T2DM. A1c values can be a less reliable in minority population s. Also would need to have 2 a1c values over 6.5%. Follow a1c q 6 months Reports having some concerns about values in 70s on 30 mg pill. This is unusual with pioglitazo ne. But seems to be going better on 15 mg bid. Non-alcoho lic fatty liver K76.0 AST= 45 (10/13); was 36 (02/09): was 43 (05/11); was 66(11/08); was 70 (05/10); was 68 (11/07); ALT= 39 (10/13); was 52 (02/09); was 43 (05/11); was 48 (11/08); was 85 (05/10); was 67 (11/07) Pioglitazo ne prescribed in early 12/09 but not refilled until late 02/08 and then in late 05/11. However, seems to be helping with TG and LFTs likely from fatty liver. Given improvemen t in TG, will update liver u/s History of pancreatitis [id number] 9107 Doesn't seem to be primarily related to TG since he has had bouts when TG were only in 300s. Has ongoing intermitte nt pain. [id number] Immanuel Krishna MD Endocrino logy, [address] [address] 06/02/2021 15:07:09 06/02/2021 19:12:29 Pure hyperglyceridemia 383880775 E78.1 Started pioglitazo ne in 11/2018. TG slightly down. Had wanted to have him get liver u/s but he was going to [place] in 07/19/19. EQ=841 (06/12); was 209 (04/12); was 153 (10/13); was 227 (02/09); was 230 (05/11); was 314 (11/08);Hig hest was 1914 in 2007. Was 877 in 07/05.TG were between 250-350 on max rosuvastat in and low dose fenofibrat e. Some improvemen t on kelvin 30 mg. but mostly stable in low 200s. Stable and not increasing Had U/S in 10/13 confirming NAFLD. [place] [facility] [place]atosis without focal pancreatic lesions (04/2019).M RI might be better if want to see if any changes.GI - [facility] in [place]. Non-alcoho lic fatty liver 091569840 K76.0 AST= 59 (06/12); was 43 (04/12); was 45 (10/13); was 36 (02/09): was 43 (05/11); was 66(11/08); was 70 (05/10); was 68 (11/07); ALT= 49 (06/12); was 40 (04/12); was 39 (10/13); was 52 (02/09); was 43 (05/11); was 48 (11/08); was 85 (05/10); was 67 (11/07) AST has been higher than ALT. NAFLD usually has ALT > AST Pioglitazo ne prescribed in early 12/09 but not refilled until late 02/08 and then in late 05/11. However, seems to be helping with TG and LFTs likely from fatty liver. Liver u/s in 10/13: Fatty liverOptio ns:- start incretin which would help T2DM and NAFLD but might increase risk for pancreatit is- update u/s to see if any change there. MRI better for actually following liver status. Reached Dr. Valdez ([facility]) and discussed case.She notes that his pancreatit is was likely more biliary in etiology. Since GB out, he may well not have as high a risk as previously . In addition, she says he did not have evidence of severe chronic pancreatic damage (calcifica tions, etc.). Discussed that imaging to better stage NAFLD may be helpful in making decision. U/S with elastograp hy CBC to help with scoring severity History of pancreatitis [id number] 9107 Z87.19 Doesn't seem to be primarily related to TG since he has had bouts when TG were only in 300s.Much less pain since GB out (per pt) in 02/10.Now on Creon 06/12: Left message to discuss incretin use with [facility]* Incretin has potential rare s/e of pancreatit is but since DM and Type 2 sebas betes mellitus 43417983 E11.9 New dx in 06/12- Has transition ed (06/12) from pre-diabet es after having a1c values of 6.5 and 6.6%Has been on pioglitazo ne in part to treat pre-diabet es and to prevent transition but also to treat high TG. Would now be eligible for incretin which has been shown to benefit NAFLD. But also some correlatio n (although not great) with pancreatit is (which he has had in past). Issue is more difficult/ complex because pancreatit is can happen more with obesity so finding difference due to these meds has been unclear. Pt. reports his pancreatit is has been much better with less pain since GB out. Will try to discuss with GI ([facility] in [place]) to see what she feels his risk is for future bouts of pancreatit is. Other option would be to go with metformin for T2DM but not much benefit for NAFLD. Reached Dr. Valdez ([place] [facility]) and discussed case.She notes that his pancreatit is was likely more biliary in etiology. Since GB out, he may well not have as high a risk as previously . In addition, she says he did not have evidence of severe chronic pancreatic damage (calcifica tions, etc.). Discussed that imaging to better stage NAFLD may be helpful in making decision. [id number] Immanuel Krishna MD Endocrino logy, [address] [address] 11/19/2021 16:39:13 11/20/2021 19:18:45 Pure hyperglyceridemia 567413315 E78.1 Started pioglitazo ne in 11/2018. TG slightly down. TG= 231 (11/11); was 271 (08/12); was 223 (06/12); was 209 (04/12); was 153 (10/13); was 227 (02/09); was 230 (05/11); was 314 (11/08);Hig hest was 1914 in 2007. Was 877 in 07/05.TG were between 250-350 on max rosuvastat in and low dose fenofibrat e. Some improvemen t on kelvin 30 mg. but mostly stable in low 200s. Stable and not increasing Had U/S in 10/13 confirming NAFLD. [place] [facility] [place] [facility] without focal pancreatic lesions (04/2019).M RI might be better if want to see if any changes. 08/12: Elastograp hy: IGR to median ratio is <15% so liver stiffness is acceptable .[facility]- [facility] [place]. Type 2 sebas betes mellitus [id number] E11.9 Since 06/12 (a1c values 6.5 and 6.6%).A1c values have held at 6.6% Has been on pioglitazo ne in part to treat pre-diabet es and to prevent transition but also to treat high TG. Would now be eligible for incretin which has been shown to benefit NAFLD.This needs to be weighed against risk for pancreatit is (some debate over how much exta risk from meds compared to that from weight and DM). These factors increase complexity Pt. reports his pancreatit is has been much better with less pain since GB out.Howeve r, he is still has nausea and other GI sx which also might be worsened with GLP1-RA or even DPP4i Metformin is beneficial for T2DM but not much benefit for NAFLD. Given a1c of 6.6%, not sure metformin will add much. Non-alcoho lic fatty liver 537544900 K76.0 AST= 50 (11/11); was 39 (08/12); was 59 (06/12); was 43 (04/12); was 45 (10/13); was 36 (02/09): was 43 (05/11); was 66(11/08); was 70 (05/10); was 68 (11/07); ALT= 39 (11/11); was 42 (08/12); was 49 (06/12); was 40 (04/12); was 39 (10/13); was 52 (02/09); was 43 (05/11); was 48 (11/08); was 85 (05/10); was 67 (11/07) AST has been consistent ly higher than ALT.In NAFLD, pattern is usually that ALT > AST Pioglitazo ne prescribed in early 12/09 but not refilled until late 02/08 and then in late 05/11. However, seems to be helping with TG and LFTs likely from fatty liver. Previous conversati on with Dr. Valdez ([facility] ) in 2020.She noted that his pancreatit is was likely more biliary in etiology. Since GB out, he may well not have as high a risk as previously . In addition, she says he did not have evidence of severe chronic pancreatic damage (calcifica tions, etc.). At that time, we discussed that elastograp hy imaging to better stage NAFLD may be helpful in making decision. Elastograp hy study (08/12): Median shear wave speed = 1.46m/s with IQR to median ratio=4.47 %(m/s) IMPRESSION : compared to MRI 09/30/2013; consistent w/fatty infiltrati on of liver parenchyma . IGR to median ratio is <15% so liver stiffness is acceptable . Median shear wave speed is < 1.7m/s, in absence of known clinical sings, rules out compensate d advanced chronic liver disease. CBC to help with scoring severityNA FLD score= 1.1 (https://w roxi.[employer].co m/health/n afld-fibro sis-score) FIB4 calculatio n: 1.85 (https://w roxi.hepatit isc..[facility] /page/clin ical-calcu lators/fib -4)FIB-4 score <1.45 had a negative predictive value of 90% for advanced fibrosis (includes early bridging fibrosis to cirrhosis) .FIB-4 >3.25 has a 97% specificit y and a positive predictive value of 65% for advanced fibrosis. Appears that patient is less likely to have advanced fibrosis. History of pancreatitis [id number] 9107 Z87.19 Doesn't seem to be primarily related to TG since he has had bouts when TG were only in 300s.Much less pain since GB out (per pt) in 02/10.Now on Creoscar Valdez ([place] [facility]) reports his pancreatit is was likely more biliary in etiology. Still, have to weigh benefits of incretin (GLP1-RA) against rare risk of pancreatit is [id number] Immanuel Krishna MD Endocrino logy, [address] [address] 09/29/2022 15:13:09 10/02/2022 09:57:01 Pure hyperglyceridemia 747491052 E78.1 Has been on rosuva 40 and fenofibrat e (54x2) Started pioglitazo ne in 11/2018. TG slightly down. TG= 289 (06/13); was 231 (11/11); was 271 (08/12); was 223 (06/12); was 209 (04/12); was 153 (2/21); was 227 (02/09); was 230 (05/11); was 314 (11/08);Hig hest was 1914 in 2007. Was 877 in 07/05. - TG were between 250-350 on max rosuvastat in and low dose fenofibrat e. Some improvemen t on kelvin 30 mg. but mostly stable in low 200s. Stable and not increasing Had U/S in 10/13 confirming NAFLD. [place] [facility] without focal pancreatic lesions (04/2019).M RI might be better if want to see if any changes. 08/12: Elastograp hy: IGR to median ratio is <15% so liver stiffness is acceptable .10/15: Clinically stable. If increases further, could increase fenofibrat e or consider vascepa. GI- [facility] in [place]. Type 2 sebas betes mellitus 65201348 E11.9 Since 06/12 (a1c values 6.5 and 6.6%).A1c values have held at 6.6% Has been on pioglitazo ne in part to treat diabetes (originall y for pre-DM) but also to treat high TG. Would now be eligible for incretin which has been shown to benefit NAFLD. This needs to be weighed against risk for pancreatit is (some debate over how much exta risk from meds compared to that from weight and DM). These factors increase complexity . Pt. reports his pancreatit is has been much better with less pain since GB out.Howeve r, he is still has nausea and other GI sx which also might be worsened with GLP1-RA or even DPP4i He didn't tolerate metformin when tried in past. Metformin not much benefit for NAFLD. Non-alcoho lic fatty liver 288194461 K76.0 AST= 35 (06/13); was 50 (11/11); was 39 (08/12); was 59 (06/12); was 43 (04/12); was 45 (10/13); was 36 (02/09): was 43 (05/11); was 66(11/08); was 70 (05/10); was 68 (11/07); ALT= 39 (06/13); was 39 (11/11); was 42 (08/12); was 49 (06/12); was 40 (04/12); was 39 (10/13); was 52 (02/09); was 43 (05/11); was 48 (11/08); was 85 (05/10); was 67 (11/07) AST has been consistent ly higher than ALT.In NAFLD, pattern is usually that ALT > AST Pioglitazo ne prescribed in early 12/09 but not refilled until late 02/08 and then in late 05/11. However, seems to be helping with TG and LFTs likely from fatty liver. Previous conversati on with Dr. Valdez ([facility]) in 2020.She noted that his pancreatit is was likely more biliary in etiology. Since GB out, he may well not have as high a risk as previously . In addition, she says he did not have evidence of severe chronic pancreatic damage (calcifica tions, etc.). At that time, we discussed that elastograp hy imaging to better stage NAFLD may be helpful in making decision. Elastograp hy study (08/12): Median shear wave speed = 1.46m/s with IQR to median ratio=4.47 %(m/s)IMPR ESSION: compared to MRI 09/30/2013; consistent w/fatty infiltrati on of liver parenchyma . IGR to median ratio is <15% so liver stiffness is acceptable .Median shear wave speed is < 1.7m/s, in absence of known clinical sings, rules out compensate d advanced chronic liver disease. CBC to help with scoring severityNA FLD score= 1.1 (https://w ww.[employer].co m/health/n afld-fibro sis-score) FIB4 calculatio n: 1.85 (https://w ww.hepatit isc..edu /page/clin ical-calcu lators/fib -4)FIB-4 score <1.45 had a negative predictive value of 90% for advanced fibrosis (includes early bridging fibrosis to cirrhosis) .FIB-4 >3.25 has a 97% specificit y and a positive predictive value of 65% for advanced fibrosis. Appears that patient is less likely to have advanced fibrosis.I f a1c increases further (7.1 in 10/15); might be worth trial of low dose incretin. History of pancreatitis [id number] 9107 Z87.19 Doesn't seem to be primarily related to TG since he has had bouts when TG were only in 300s.Much less pain since GB out (per pt) in 02/10.Now on Creon [facility] ([place] [facility]) reports his pancreatit is was likely more biliary in etiology. Still, have to weigh benefits of incretin (GLP1-RA) against rare risk of pancreatit is [id number] Immanuel Krishna MD Endocrino logy, [address] [address] 09/15/2023 12:13:03 09/20/2023 07:15:34 Pure hyperglyceridemia [id number] E78.1 Uncontroll ed GI- José Miguel in [place]. Has been on rosuva 40 and fenofibrat e (54x2) Started pioglitazo ne in 11/2018. TG slightly down.09/15: 112/214/47 /229/: 118/189/52 /286/23: 147/245/46 /525/23: 146/250/45 /60 TG= 289 (06/13); was 231 (11/11); was 271 (08/12); was 223 (06/12); was 209 (04/12); was 153 (10/13); was 227 (02/09); was 230 (05/11); was 314 (11/08);*Hi ghest was 1914 in 2007. Was 877 in 07/05.* - TG have been between 250-350 on max rosuvastat in and low dose fenofibrat e. Some improvemen t on kelvin 30 mg. but mostly stable in low 200s. Had U/S in 10/13 confirming NAFLD. [place] [facility] [place] without focal pancreatic lesions (04/[place]).M RI might be better if want to see if any changes. 08/12: Elastograp hy: IGR to median ratio is <15% so liver stiffness is acceptable .10/15: Clinically stable. If increases further, could increase fenofibrat e or consider vascepa. 09/15: change fenofibrat e from 108 to 120 (single pill) Type 2 sebas betes mellitus [id number] E11.9 Uncontroll ed A1c values have increased since 06/12 (a1c values 6.5 and 6.6%). a1c= 8.1 (09/15); was 8.9 (05/15) was 8.2 (02/12); was 7.7 (01/12) was 7.1 (10/15); was 6.8 (06/13) Has been on pioglitazo ne in part to treat diabetes (originall y for pre-DM) but also to treat high TG. Incretin considered because of benefit in NAFLD.Have weighed against risk for pancreatit is (some debate over how much exta risk from meds compared to that from weight and DM). These factors increase complexity . Pt. reports his pancreatit is has been much better with less pain since GB out.Howeve r, he is still has nausea and other GI sx which also might be worsened with GLP1-RA or even DPP4i He didn't tolerate metformin when tried in past. Metformin not much benefit for NAFLD. Previous conversati on with Dr. Valdez ([facility]) in 2020.She noted that his pancreatit is was likely more biliary in etiology. Since GB out, he may well not have as high a risk as previously . In addition, she says he did not have evidence of severe chronic pancreatic damage (calcifica tions, etc.).Over all, felt that increase in risk for pancreatit is from incretin in this circumstan ce is minimal. Has done well on 0.75 trulicity. 09/15: Increase to 1.5(Pt needs BG better to get shot in low back)F/U with ENDO RN to make sure glucose values improving. Non-alcoho lic fatty liver [id number] K76.0 AST= 22 (09/15) was 35 (06/13); was 50 (11/11); was 39 (08/12); was 59 (06/12); was 43 (04/12); was 45 (10/13); was 36 (02/09): was 43 (05/11); was 66(11/08); was 70 (05/10); was 68 (11/07); ALT= 29 (09/15); was 39 (06/13); was 39 (11/11); was 42 (08/12); was 49 (06/12); was 40 (04/12); was 39 (10/13); was 52 (02/09); was 43 (05/11); was 48 (11/08); was 85 (05/10); was 67 (11/07) AST had been consistent ly higher than ALT.In NAFLD, pattern is usually that ALT > AST Pioglitazo ne prescribed in early 12/09 but not refilled until late 02/08 and then in late 05/11. However, seems to be helping with TG and LFTs likely from fatty liver. Previous conversati on with Dr. Valdez ([facility]) in 2020. reviewed again 2022.She noted that his pancreatit is was likely more biliary in etiology. Since GB out, he may well not have as high a risk as previously . In addition, she says he did not have evidence of severe chronic pancreatic damage (calcifica tions, etc.). At that time, we discussed that elastograp hy imaging to better stage NAFLD may be helpful in making decision. Elastograp hy study (08/12): Median shear wave speed = 1.46m/s with IQR to median ratio=4.47 %(m/s)IMPR ESSION: compared to MRI 09/30/2013; consistent w/fatty infiltrati on of liver parenchyma . IGR to median ratio is <15% so liver stiffness is acceptable .Median shear wave speed is < 1.7m/s, in absence of known clinical sings, rules out compensate d advanced chronic liver disease. CBC to help with scoring severityNA FLD score= 1.1 (https://w ww.omnical culator.co m/health/n afld-fibro sis-score) FIB4 calculatio n: 1.85 (https://w ww.hepatit isc..edu /page/clin ical-calcu lators/fib -4)FIB-4 score <1.45 had a negative predictive value of 90% for advanced fibrosis (includes early bridging fibrosis to cirrhosis) .FIB-4 >3.25 has a 97% specificit y and a positive predictive value of 65% for advanced fibrosis. Appears that patient is less likely to have advanced fibrosis.I f a1c increases further (7.1 in 10/15); might be worth trial of low dose incretin. History of pancreatitis [id number] 9107 Z87.19 Doesn't seem to be primarily related to TG since he has had bouts when TG were only in 300s.Much less pain since GB out (per pt) in 02/10.Now on Creoscar Valdez ([facility]) reports his pancreatit is was likely more biliary in etiology. Still, have to weigh benefits of incretin (GLP1-RA) against rare risk of pancreatit is Uncontroll ed type 2 diabetes mellitus [id number] E11.65 a1c= 8.1 (09/15); was 8.9 (05/15) was 8.7 (per pt by PCP POC); 8.2 (02/12); was 7.7 (01/12) was 7.1 (10/15); was 6.8 (06/13 and 03/13);Piog litazone only (to try and help with high TG and fatty liver Options:BREWER - increased risk for [id number] - increased risk for GUincretin - risk for pancreatit is but he hasn't had any severe bouts since GB out.He didn't tolerate metformin when tried in past. Metformin not much benefit for NAFLD. Tolerating trulicity 0.75. Try increase to 1.5. [id number] Immanuel Krishna MD Endocrino logy, [address] [address] 05/18/2023 12:46:50 05/18/2023 16:51:51 Pure hyperglyceridemia [id number] E78.1 Has been on rosuva 40 and fenofibrat e (54x2) Started pioglitazo ne in 11/2018. TG slightly down. TG= 245 (02/12); was 250 (01/12); was 289 (06/13); was 231 (11/11); was 271 (08/12); was 223 (06/12); was 209 (04/12); was 153 (10/13); was 227 (02/09); was 230 (05/11); was 314 (11/08);Hig hest was 1914 in 2007. Was 877 in 07/05. - TG have been between 250-350 on max rosuvastat in and low dose fenofibrat e. Some improvemen t on kelvin 30 mg. but mostly stable in low 200s. Stable and not increasing Had U/S in 10/13 confirming NAFLD. [place] [facility] [place]atosis without focal pancreatic lesions (04/2019).M RI might be better if want to see if any changes. 08/12: Elastograp hy: IGR to median ratio is <15% so liver stiffness is acceptable .10/15: Clinically stable. If increases further, could increase fenofibrat e or consider vascepa.: reports had MRI thru [place]. No recent bouts of pancreatit is. Previou s conversati on with Dr. Valdez ([facility]) in 2020.She noted that his pancreatit is was likely more biliary in etiology. Since GB out, he may well not have as high a risk as previously . In addition, she says he did not have evidence of severe chronic pancreatic damage (calcifica tions, etc.)GI - José Miguel in [place].: left message with GI- want to update and confirm OK to try incretin. Non-alcoho lic fatty liver [id number] K76.0 Mostly OK in 2021 and 2022. AST generally higher than ALT.In NAFLD, pattern is usually that ALT > AST Pioglitazo ne prescribed in early 12/09 but not refilled until late 02/08 and then in late 05/11. However, seems to be helping with TG and LFTs likely from fatty liver. Previous conversati on with Dr. Valdez ([facility]) in 2020.She noted that his pancreatit is was likely more biliary in etiology. Since GB out, he may well not have as high a risk as previously . In addition, she says he did not have evidence of severe chronic pancreatic damage (calcifica tions, etc.). At that time, we discussed that elastograp hy imaging to better stage NAFLD may be helpful in making decision. Elastograp hy study (08/12): Median shear wave speed = 1.46m/s with IQR to median ratio=4.47 %(m/s)IMPR ESSION: compared to MRI 09/30/2013; consistent w/fatty infiltrati on of liver parenchyma . IGR to median ratio is <15% so liver stiffness is acceptable .Median shear wave speed is < 1.7m/s, in absence of known clinical sings, rules out compensate d advanced chronic liver disease. CBC to help with scoring severityNA FLD score= 1.1 (https://w roxi.[employer].co m/health/n afld-fibro sis-score) FIB4 calculatio n: 1.85 (https://w roxi.[facility] /page/clin ical-calcu lators/fib -4)FIB-4 score <1.45 had a negative predictive value of 90% for advanced fibrosis (includes early bridging fibrosis to cirrhosis) .FIB-4 >3.25 has a 97% specificit y and a positive predictive value of 65% for advanced fibrosis. Appears that patient is less likely to have advanced fibrosis. If a1c increases further (now 8.2 in 02/12 after being 7.1 in 10/15); will confirm with José Miguel V[facility] to try low dose incretin. History of pancreatitis [id number] 9107 Z87.19 Doesn't seem to be primarily related to TG since he has had bouts when TG were only in 300s.Much less pain since GB out (per pt) in 02/10.Now on Creoscar Valdez ([facility]) reports his pancreatit is was likely more biliary in etiology. Still, have to weigh benefits of incretin (GLP1-RA) against rare risk of pancreatit is Uncontroll ed type 2 diabetes mellitus [id number] E11.65 a1c= 8.7 (per pt by PCP POC); 8.2 (02/12); was 7.7 (01/12) was 7.1 (10/15); was 6.8 (06/13 and 03/13);Piog litazone only (to try and help with high TG and fatty liver Options:BREWER - increased risk for [id number] - increased risk for GUincretin - risk for pancreatit is but he hasn't had any severe bouts since GB out.He didn't tolerate metformin when tried in past. Metformin not much benefit for NAFLD. - message to GI (José Miguel) 05/15. [id number] Arlene Thomson RN Endocrino logy, [address] [phone] 06/10/2023 10:01:00 06/10/2023 15:44:28 Pure hyperglyceridemia [id number] E78.1 Has been on rosuva 40 and fenofibrat e (54x2) Started pioglitazo ne in 11/2018. TG slightly down. TG= 245 (02/12); was 250 (01/12); was 289 (06/13); was 231 (11/11); was 271 (08/12); was 223 (06/12); was 209 (04/12); was 153 (10/13); was 227 (02/09); was 230 (05/11); was 314 (11/08);Hig hest was 1914 in 2007. Was 877 in 07/05. - TG have been between 250-350 on max rosuvastat in and low dose fenofibrat e. Some improvemen t on kelvin 30 mg. but mostly stable in low 200s. Stable and not increasing Had U/S in 10/13 confirming NAFLD. [place] [facility] [place] steatosis without focal pancreatic lesions (04/2019).M RI might be better if want to see if any changes. 08/12: Elastograp hy: IGR to median ratio is <15% so liver stiffness is acceptable .10/15: Clinically stable. If increases further, could increase fenofibrat e or consider vascepa.: reports had MRI thru [place]. No recent bouts of pancreatit is. Previou s conversati on with Dr. Valdez ([facility]) in 2020.She noted that his pancreatit is was likely more biliary in etiology. Since GB out, he may well not have as high a risk as previously . In addition, she says he did not have evidence of severe chronic pancreatic damage (calcifica tions, etc.)GI - José Miguel in [place].: left message with GI- want to update and confirm OK to try incretin. Uncontroll ed type 2 diabetes mellitus [id number] E11.65 a1c= 8.7 (per pt by PCP POC); 8.2 (02/12); was 7.7 (01/12) was 7.1 (10/15); was 6.8 (06/13 and 03/13);Piog litazone only (to try and help with high TG and fatty liver Options:BREWER - increased risk for [id number] - increased risk for GUincretin - risk for pancreatit is but he hasn't had any severe bouts since GB out.He didn't tolerate metformin when tried in past. Metformin not much benefit for NAFLD. - message to GI (José Miguel) 05/15. Non-alcoho lic fatty liver [id number] K76.0 Mostly OK in 2021 and 2022. AST generally higher than ALT.In NAFLD, pattern is usually that ALT > AST Pioglitazo ne prescribed in early 12/09 but not refilled until late 02/08 and then in late 05/11. However, seems to be helping with TG and LFTs likely from fatty liver. Previous conversati on with Dr. Valdez ([facility]) in 2020.She noted that his pancreatit is was likely more biliary in etiology. Since GB out, he may well not have as high a risk as previously . In addition, she says he did not have evidence of severe chronic pancreatic damage (calcifica tions, etc.). At that time, we discussed that elastograp hy imaging to better stage NAFLD may be helpful in making decision. Elastograp hy study (08/12): Median shear wave speed = 1.46m/s with IQR to median ratio=4.47 %(m/s)IMPR ESSION: compared to MRI 09/30/2013; consistent w/fatty infiltrati on of liver parenchyma . IGR to median ratio is <15% so liver stiffness is acceptable .Median shear wave speed is < 1.7m/s, in absence of known clinical sings, rules out compensate d advanced chronic liver disease. CBC to help with scoring severityNA FLD score= 1.1 (https://w ww.omnical culator.co m/health/n afld-fibro sis-score) FIB4 calculatio n: 1.85 (https://w roxi.hepatit isc..edu /page/clin ical-calcu lators/fib -4)FIB-4 score <1.45 had a negative predictive value of 90% for advanced fibrosis (includes early bridging fibrosis to cirrhosis) .FIB-4 >3.25 has a 97% specificit y and a positive predictive value of 65% for advanced fibrosis. Appears that patient is less likely to have advanced fibrosis. If a1c increases further (now 8.2 in 02/12 after being 7.1 in 10/15); will confirm with José Miguel [facility] to try low dose incretin. History of pancreatitis [id number] 9107 Z87.19 Doesn't seem to be primarily related to TG since he has had bouts when TG were only in 300s.Much less pain since GB out (per pt) in 02/10.Now on Creon José Miguel ([facility]) reports his pancreatit is was likely more biliary in etiology. Still, have to weigh benefits of incretin (GLP1-RA) against rare risk of pancreatit is [id number] Immanuel Krishna MD Endocrino logy, [address] [address] 06/25/2023 09:42:36 06/28/2023 07:55:00 Pure hyperglyceridemia [id number] E78.1 Has been on rosuva 40 and fenofibrat e (54x2) Started pioglitazo ne in 11/2018. TG slightly down. TG= 189 (05/15); was 245 (02/12); was 250 (01/12); was 289 (06/13); was 231 (11/11); was 271 (08/12); was 223 (06/12); was 209 (04/12); was 153 (10/13); was 227 (02/09); was 230 (05/11); was 314 (11/08);Hig hest was 1914 in 2007. Was 877 in 07/05. - TG have been between 250-350 on max rosuvastat in and low dose fenofibrat e. Some improvemen t on kelvin 30 mg. but mostly stable in low 200s. Stable and not increasing Had U/S in 10/13 confirming NAFLD. [place] [facility] [place] steatosis without focal pancreatic lesions (04/2019).M RI might be better if want to see if any changes. 08/12: Elastograp hy: IGR to median ratio is <15% so liver stiffness is acceptable .10/15: Clinically stable. If increases further, could increase fenofibrat e or consider vascepa.: reports had MRI thru [place]. No recent bouts of pancreatit is.07/15: Pt reports had CT recently. Try to get results. Previou s conversati on with Dr. Valdez ([facility]) in 2020.She noted that his pancreatit is was likely more biliary in etiology. Since GB out, he may well not have as high a risk as previously . In addition, she says he did not have evidence of severe chronic pancreatic damage (calcifica tions, etc.) 07/15: Updated conversati on with José Miguel and re-affirme d ideas noted above. Discussion provided sufficient reassuranc e to try incretin to help with BG and fatty liver. Uncontroll ed type 2 diabetes mellitus [id number] E11.65 a1c= 8.9 (05/15); was 8.2 (02/12); was 7.7 (01/12) was 7.1 (10/15); was 6.8 (06/13 and 03/13); Pioglitazo ne to try and help with high TG and fatty liverHe didn't tolerate metformin when tried in past. Metformin not much benefit for NAFLD. Trulicity started and now at 0.75.Would like to increase but want to get results of CT from [place] first. Non-alcoho lic fatty liver [id number] K76.0 Mostly OK in 2021 and 2022. ast/alt= 38/36 (02/12)AST has generally been higher than ALT. In NAFLD, pattern is usually that ALT > AST Pioglitazo ne prescribed in early 12/09 but not refilled until late 02/08 and then in late 05/11. However, seems to be helping with TG and LFTs likely from fatty liver. Previous conversati on with Dr. Valdez ([facility]) in 2020.She noted that his pancreatit is was likely more biliary in etiology. Since GB out, he may well not have as high a risk as previously . In addition, she says he did not have evidence of severe chronic pancreatic damage (calcifica tions, etc.). At that time, we discussed that elastograp hy imaging to better stage NAFLD may be helpful in making decision. Elastograp hy study (08/12): Median shear wave speed = 1.46m/s with IQR to median ratio=4.47 %(m/s)IMPR ESSION: compared to MRI 09/30/2013; consistent w/fatty infiltrati on of liver parenchyma . IGR to median ratio is <15% so liver stiffness is acceptable .Median shear wave speed is < 1.7m/s, in absence of known clinical sings, rules out compensate d advanced chronic liver disease. CBC to help with scoring severityNA FLD score= 1.1 (https://w ww.[employer] culator.co m/health/n afld-fibro sis-score) FIB4 calculatio n: 1.85 (https://w ww.[facility]edu /page/clin ical-calcu lators/fib -4)FIB-4 score <1.45 had a negative predictive value of 90% for advanced fibrosis (includes early bridging fibrosis to cirrhosis) .FIB-4 >3.25 has a 97% specificit y and a positive predictive value of 65% for advanced fibrosis. Appears that patient is less likely to have advanced fibrosis. Seems to be tolerating low dose Trulicity to start. Found out results of recent CT and hope to increase dose ( to help liver and BG) History of pancreatitis [id number] 9107 Z87.19 Doesn't seem to be primarily related to TG since he has had bouts when TG were only in 300s.Much less pain since GB out (per pt) in 02/10.Now on Stephanie Valdez ([facility]) reports his pancreatit is was likely more biliary in etiology. [id number] Immanuel Krishna MD Endocrino logy, [address] [phone] 10/28/2023 12:55:15 10/28/2023 13:41:48 Pure hyperglyceridemia [id number] E78.1 Uncontroll ed GI- José Miguel in [place]. Has been on rosuva 40 and fenofibrat e (54x2) Started pioglitazo ne in 11/2018. TG slightly down.11/13: LABS TODAY/24: 112/214/47 /229/23: 118/189/52 /286/23: 147/245/46 /525/23: 146/250/45 /60 TG= 289 (06/13); was 231 (11/11); was 271 (08/12); was 223 (06/12); was 209 (04/12); was 153 (10/13); was 227 (02/09); was 230 (05/11); was 314 (11/08);*Hi ghest was 1914 in 2007. Was 877 in 07/05.* - TG have been between 250-350 on max rosuvastat in and low dose fenofibrat e. Some improvemen t on kelvin 30 mg. but mostly stable in low 200s. Had U/S in 10/13 confirming NAFLD. [place] [facility] [place] steatosis without focal pancreatic lesions (04/2019).M RI might be better if want to see if any changes. 08/12: Elastograp hy: IGR to median ratio is <15% so liver stiffness is acceptable .10/15: Clinically stable. If increases further, could increase fenofibrat e or consider vascepa. 09/15: change fenofibrat e from 108 to 120 (single pill) Uncontroll ed type 2 diabetes mellitus [id number] E11.65 a1c= today; was 8.1 (09/15); was 8.9 (05/15) was 8.7 (per pt by PCP POC); 8.2 (02/12); was 7.7 (01/12) was 7.1 (10/15); was 6.8 (06/13 and 03/13);Piog litazone only (to try and help with high TG and fatty liver Options:BREWER - increased risk for [id number] - increased risk for GUincretin - risk for pancreatit is but he hasn't had any severe bouts since GB out.He didn't tolerate metformin when tried in past. Metformin not much benefit for NAFLD. Tolerating trulicity 0.75. Try increase to 1.5. RN VISIT 10/28/23 Recent illness: ongoing low back has been bothering himSeen by [facility] today 10/28/23 - Dr Valdez:- had ABD MRI 03/2023- Hepatic steatosis. - atrophy of pancreatic head with similar mild dilation of proximal pancreatic duct. Coarse calcificat ions also seen. likely sequela of chronic pancreatit is.- 09/2023 - had upper endoscopy and colonoscop y - all normal - polyps removed, benign.- Dr Valdez said pancreas still puts at high risk for pancreatit is - damaged from chronic pancreatit is and at risk for pancreatit is again- has small cyst on pancreas. Pt has constant nausea - takes zofran.Las t HgbA1c - a1c= 8.1 (09/15); was 8.9 (05/15) was 8.7 (per pt by PCP POC); 8.2 (02/12); was 7.7 (01/12) was 7.1 (10/15); was 6.8 (06/13 and 03/13) Diabetic medication s and current doses:1.) Pioglitzon e 30 mg once daily (used for high TG and fatty liver in addition to DM)2. ) Trulicity 0.75 mg weekly - never went up to 1.5 mg dose from 6 weeks ago - d/t to shortage and not being able to find a pharmacy that had this in stock Glucometer reveals : checks once daily at different times in the usually morning before 2 pm day. - eats meal at 2 pm only - all tests results are fasting.Da benton - 30 days 09/29/23 - 10/28/23Ave BS - 186Time in range, target range (70 -180) = 48%Very High (>250) = 14%High (181-250) = 38%Low (54-69) = 0%Very Low ( <54) = 0%Highest - 274Lowest- 123Median - 184 labs today- changes depend on results. Non-alcoho lic fatty liver [id number] K76.0 AST= 22 (09/15) was 35 (06/13); was 50 (11/11); was 39 (08/12); was 59 (06/12); was 43 (04/12); was 45 (10/13); was 36 (02/09): was 43 (05/11); was 66(11/08); was 70 (05/10); was 68 (11/07); ALT= 29 (09/15); was 39 (06/13); was 39 (11/11); was 42 (08/12); was 49 (06/12); was 40 (04/12); was 39 (10/13); was 52 (02/09); was 43 (05/11); was 48 (11/08); was 85 (05/10); was 67 (11/07) AST had been consistent ly higher than ALT.In NAFLD, pattern is usually that ALT > AST Pioglitazo ne prescribed in early 12/09 but not refilled until late 02/08 and then in late 05/11. However, seems to be helping with TG and LFTs likely from fatty liver. Previous conversati on with Dr. Valdez ([facility]) in 2020. reviewed again 2022.She noted that his pancreatit is was likely more biliary in etiology. Since GB out, he may well not have as high a risk as previously . In addition, she says he did not have evidence of severe chronic pancreatic damage (calcifica tions, etc.). At that time, we discussed that elastograp hy imaging to better stage NAFLD may be helpful in making decision. Elastograp hy study (08/12): Median shear wave speed = 1.46m/s with IQR to median ratio=4.47 %(m/s)IMPR ESSION: compared to MRI 09/30/2013; consistent w/fatty infiltrati on of liver parenchyma . IGR to median ratio is <15% so liver stiffness is acceptable .Median shear wave speed is < 1.7m/s, in absence of known clinical sings, rules out compensate d advanced chronic liver disease. CBC to help with scoring severityNA FLD score= 1.1 (https://w ww.[employer] culator.co m/health/n afld-fibro sis-score) FIB4 calculatio n: 1.85 (https://w rxoi.hepatit isc..edu /page/clin ical-calcu lators/fib -4)FIB-4 score <1.45 had a negative predictive value of 90% for advanced fibrosis (includes early bridging fibrosis to cirrhosis) .FIB-4 >3.25 has a 97% specificit y and a positive predictive value of 65% for advanced fibrosis. Appears that patient is less likely to have advanced fibrosis.I f a1c increases further (7.1 in 10/15); might be worth trial of low dose incretin. History of pancreatitis [id number] 9107 Z87.19 Doesn't seem to be primarily related to TG since he has had bouts when TG were only in 300s.Much less pain since GB out (per pt) in 02/10.Now on Stephanie Valdez ([facility]) reports his pancreatit is was likely more biliary in etiology. Still, have to weigh benefits of incretin (GLP1-RA) against rare risk of pancreatit is [id number] Immanuel Krishna MD Endocrino logy, [address] [phone] 12/07/2023 12:48:58 12/10/2023 13:40:08 Pure hyperglyceridemia [id number] E78.1 Has been on rosuva 40 and fenofibrat e (54x2) Started pioglitazo ne in 11/2018. TG slightly down.11/13: 117/177/51 /311/24: 112/214/47 /229/23: 118/189/52 /286/23: 147/245/46 /525/23: 146/250/45 /60 TG= 289 (06/13); was 231 (11/11); was 271 (08/12); was 223 (06/12); was 209 (04/12); was 153 (10/13); was 227 (02/09); was 230 (05/11); was 314 (11/08);*Hi ghest [id number] 2007. Was 877 in 07/05.* - TG have been between 250-350 on max rosuvastat in and low dose fenofibrat e. Some improvemen t on kelvin 30 mg. but mostly stable in low 200s. Had U/S in 10/13 confirming NAFLD. [place] [facility] [place]atosis without focal pancreatic lesions (04/2019).M RI might be better if want to see if any changes. 08/12: Elastograp hy: IGR to median ratio is <15% so liver stiffness is acceptable .GI- José Miguel in [place]. 10/15: Clinically stable. If increases further, could increase fenofibrat e or consider vascepa. 09/15: change fenofibrat e from 108 to 120 (single pill) Uncontroll ed type 2 diabetes mellitus [id number] E11.65 a1c= 8.3 (11/13); was 8.1 (09/15); was 8.9 (05/15) was 8.7 (per pt by PCP POC); 8.2 (02/12); was 7.7 (01/12) was 7.1 (10/15); was 6.8 (06/13 and 03/13);Piog litazone only (to try and help with high TG and fatty liver Options:BREWER - increased risk for shhnVUTY4h - increased risk for GUincretin - risk for pancreatit is but he hasn't had any severe bouts since GB out.He didn't tolerate metformin when tried in past. Metformin not much benefit for NAFLD. 10/16: Tolerating trulicity 0.75. Try increase to 1.5.12/14: ENDO RN VISIT. Tolerating Trulicity 1.5Plan :1.) - Increase Trulicity to 3 mg weekly after completing 4 week course of 1.5 mg weekly2.) -RN/MD appt after taking 3 mg x at least 4 weeks - January 2024 - when Dr Krishna is in office.3)- Lab one week prior to RN/MD appt4.)- If increased back pain and cannot wait for A1c to get to 7's ( per Ortho plan for injection of steroid) - call nursing - will do CGM trial to document blood sugars and hopefully improved so we can talk with ortho about this.Revie wed S/S hypoglycem ia - handout given, reviewed how/when to treat ? pt aware and no lows Non-alcoho lic fatty liver [id number] K76.0 AST= 22 (09/15) was 35 (06/13); was 50 (11/11); was 39 (08/12); was 59 (06/12); was 43 (04/12); was 45 (10/13); was 36 (02/09): was 43 (05/11); was 66(11/08); was 70 (05/10); was 68 (11/07); ALT= 29 (09/15); was 39 (06/13); was 39 (11/11); was 42 (08/12); was 49 (06/12); was 40 (04/12); was 39 (10/13); was 52 (02/09); was 43 (05/11); was 48 (11/08); was 85 (05/10); was 67 (11/07) AST had been consistent ly higher than ALT.In NAFLD, pattern is usually that ALT > AST Pioglitazo ne prescribed in early 12/09 but not refilled until late 02/08 and then in late 05/11. However, seems to be helping with TG and LFTs likely from fatty liver. Previous conversati on with Dr. Valdez ([facility]) in 2020. reviewed again 2022.She noted that his pancreatit is was likely more biliary in etiology. Since GB out, he may well not have as high a risk as previously . In addition, she says he did not have evidence of severe chronic pancreatic damage (calcifica tions, etc.). At that time, we discussed that elastograp hy imaging to better stage NAFLD may be helpful in making decision. Elastograp hy study (08/12): Median shear wave speed = 1.46m/s with IQR to median ratio=4.47 %(m/s)IMPR ESSION: compared to MRI 09/30/2013; consistent w/fatty infiltrati on of liver parenchyma . IGR to median ratio is <15% so liver stiffness is acceptable .Median shear wave speed is < 1.7m/s, in absence of known clinical sings, rules out compensate d advanced chronic liver disease. CBC to help with scoring severityNA FLD score= 1.1 (https://w roxi.[employer] culator.co m/health/n afld-fibro sis-score) FIB4 calculatio n: 1.85 (https://w roxi.hepatit isc..edu /page/clin ical-calcu lators/fib -4)FIB-4 score <1.45 had a negative predictive value of 90% for advanced fibrosis (includes early bridging fibrosis to cirrhosis) .FIB-4 >3.25 has a 97% specificit y and a positive predictive value of 65% for advanced fibrosis. Appears that patient is less likely to have advanced fibrosis.I f a1c increases further (7.1 in 10/15); might be worth trial of low dose incretin. History of pancreatitis [id number] 9107 Z87.19 Doesn't seem to be primarily related to TG since he has had bouts when TG were only in 300s.Much less pain since GB out (per pt) in 02/10.Now on Creon José Miguel ([facility]) reports his pancreatit is was likely more biliary in etiology. Still, have to weigh benefits of incretin (GLP1-RA) against rare risk of pancreatit is [id number] Immanuel Krishna MD Endocrino logy, [address] [phone] 04/05/2024 11:53:58 04/06/2024 08:45:17 Pure hyperglyceridemia [id number] E78.1 On rosuva 40 and fenofibrat e (54x2) Started pioglitazo ne in 11/2018. TG much better (also with a1c better).: 109/123/52 /321/24: 112/214/47 /229/23: 118/189/52 /286/23: 147/245/46 /525/23: 146/250/45 /60 TG= 289 (06/13); was 231 (11/11); was 271 (08/12); was 223 (06/12); was 209 (04/12); was 153 (10/13); was 227 (02/09); was 230 (05/11); was 314 (11/08);*Hi ghest was 1914 in 2007. Was 877 in 07/05.* - TG have been between 250-350 on max rosuvastat in and low dose fenofibrat e. Some improvemen t on kelvin 30 mg. but mostly stable in low 200s. Had U/S in 10/13 confirming MASLD. [place] [facility] [place] steatosis without focal pancreatic lesions (04/2019).M RI might be better if want to see if any changes. 08/12: Elastograp hy: IGR to median ratio is <15% so liver stiffness is acceptable .10/15: Clinically stable. If increases further, could increase fenofibrat e or consider vascepa.: change fenofibrat e from 108 to 120 (single pill)04/15: Had trouble on one pill daily. doing well on 54mg (2 tabs) daily. Uncontroll ed type 2 diabetes mellitus [id number] E11.65 a1c= 7.8 (02/13); was 8.3 (11/13) was 8.1 (09/15); was 8.9 (05/15) was 8.7 (per pt by PCP POC); 8.2 (02/12); was 7.7 (01/12) was 7.1 (10/15); was 6.8 (06/13 and 03/13);Piog litazone only (to try and help with high TG and fatty liver He didn't tolerate metformin when tried in past. Metformin not much benefit for NAFLD. Previous conversati on with Dr. Valdez ([facility]) in 2020.She noted that his pancreatit is was likely more biliary in etiology. Since GB out, he may well not have as high a risk as previously . In addition, she says he did not have evidence of severe chronic pancreatic damage (calcifica tions, etc.).Over all, felt that increase in risk for pancreatit is from incretin in this circumstan ce is minimal. Tolerating trulicity 3.0.04/15: Try increase to 4.5.Pt. reports can't get injection until a1c is under 7.5.Since last a1c wasd 02/13, he can't get another till 05/16. If pain is severe, may need to consider benefits/r isks of steroid injection vs. impact on BG.Steroid injections will likely raise BG even if a1c is under 7.5. As long as pt. monitors, can respond to higher BG post-injec tion.If very problemati c, can discuss short term tx (insulin or sulfonylur ea). Non-alcoho lic fatty liver [id number] K76.0 AST= 22 (09/15) was 35 (06/13); was 50 (11/11); was 39 (08/12); was 59 (06/12); was 43 (04/12); was 45 (10/13); was 36 (02/09): was 43 (05/11); was 66(11/08); was 70 (05/10); was 68 (11/07); ALT= 29 (09/15); was 39 (06/13); was 39 (11/11); was 42 (08/12); was 49 (06/12); was 40 (04/12); was 39 (10/13); was 52 (02/09); was 43 (05/11); was 48 (11/08); was 85 (05/10); was 67 (11/07) AST had been consistent ly higher than ALT.In NAFLD, pattern is usually that ALT > AST Pioglitazo ne prescribed in early 12/09 but not refilled until late 02/08 and then in late 05/11. However, seems to be helping with TG and LFTs likely from fatty liver. Previous conversati on with Dr. Valdez ([facility]) in 2020. reviewed again 2022.We discussed that elastograp hy imaging to better stage NAFLD may be helpful in making decision.E lastograph y study (08/12): Median shear wave speed = 1.46m/s with IQR to median ratio=4.47 %(m/s)IMPR ESSION: compared to MRI 09/30/2013; consistent w/fatty infiltrati on of liver parenchyma . IGR to median ratio is <15% so liver stiffness is acceptable .Median shear wave speed is < 1.7m/s, in absence of known clinical sings, rules out compensate d advanced chronic liver disease. CBC to help with scoring severityNA FLD score= 1.1 (https://w ww.[employer] culator.co m/health/n afld-fibro sis-score) FIB4 calculatio n: 1.85 (https://w ww.hepatit isc..edu /page/clin ical-calcu lators/fib -4)FIB-4 score <1.45 had a negative predictive value of 90% for advanced fibrosis (includes early bridging fibrosis to cirrhosis) .FIB-4 >3.25 has a 97% specificit y and a positive predictive value of 65% for advanced fibrosis. Appears that patient is less likely to have advanced fibrosis.T olerating GLP1-RA well. Increase to max dose Trulicity (04/15)Lázaro hernandez for updated elastograp hy. History of pancreatitis [id number] 9107 Z87.19 Doesn't seem to be primarily related to TG since he has had bouts when TG were only in 300s.Much less pain since GB out (per pt) in 02/10.Now on Creon Previous conversati on with Dr. Valdez ([facility]) in 2020.She noted that his pancreatit is was likely more biliary in etiology. Since GB out, he may well not have as high a risk as previously . In addition, she says he did not have evidence of severe chronic pancreatic damage (calcifica tions, etc.).Over all, felt that increase in risk for pancreatit is from incretin in this circumstan ce is minimal. On Incretin because of benefit in NAFLD.Have weighed against risk for pancreatit is (some debate over how much exta risk from meds compared to that from weight and DM). These factors increase complexity . José Miguel ([facility]) reports his pancreatit is was likely more biliary in etiology. Still, continue to monitor to assess benefits vs. risks of incretin (GLP1-RA) against rare risk of pancreatit is [id number] Immanuel Krishna MD Endocrino logy, [address] [phone] 08/03/2024 09:56:59 08/08/2024 07:28:51 Uncontrolled type 2 diabetes mellitus [id number] E11.65 Updated A1c - 7.6 % 04/2024 [...] POST MEAL IN PM ---- AND HS-------- -----12/12 --------- 85-------- -----12/11 --------- 97-------- -------PM - 122------- ------HS --- 109------- ------12/1 0--------- -109------ ----152--- ------- 148------- ------12/0 9--------- - 79-------- ---126---- -------109 ---12/8--- 10-------- --134----- ----- 151------- ------12/7 ---99----- -----127-- --------10 4--------- -----12/6- --93------ ----147--- -------162 ----12/5-- 115------- --101----- -----166-- --12/4---- --------10 4--------- 106------- ---142---- 12/3------ ------103- --------16 2--------- -116------ --------12 /2-------- ----104--- ------107- ---12/1--- ---------1 03-------- -116------ ----Bethanie Krishna to review blood sugars/ginger n.?was he ever on metformin? may opt to wait and see next a1c. Health Concerns Section Related Observation LastModified by Organization Detai ls LastModified Time None Recorded Concern Status LastModified by Organization Details LastModified Time None Recorded Advance Directives Directive None Recorded Payers Encounter Date Sequence Insurance Name Policy Number Policy Ozuna Covered Member ID Ozuna Member ID Guarantor Name 09/15/2023 1 MEDICARE B-[place]: [facility] Elvin Sutherland [id number] Elvin Sutherland 09/15/2023 2 [place] Elvin Sutherland [id number] Eb Koko 10/28/2023 1 MEDICARE B-[place]: [facility] Elvin Sutherland [id number] Elvin Sutherland 10/28/2023 2 [place] Elvin Sutherland [id number] Elvin Sutherland 12/07/2023 1 MEDICARE B-[place]: [facility] Elvin Sutherland [id number] Elvin Sutherland 12/07/2023 2 [place] Elvin Sutherland [id number] Eb Koko 04/05/2024 1 MEDICARE B-[place]: [facility] Elvin Sutherland [id number] Eb Koko 04/05/2024 2 [place] Eb Koko [id number] Elvin Sutherland 08/03/2024 1 MEDICARE B-[place]: [facility] Elvin Sutherland [id number] Eb Koko 08/03/2024 2 [place] Elvin Sutherland [id number] Elvin Sutherland Notes Date Note Type Note Provider Name and Address Organization Details Recorded Time 09/15 text/ html DiabetesReported bypatient.Labs:last Hemoglobin A1C: at goal (8.1 (09/15); was 8.9 (05/15) was 8.2 (02/12); was 7.1 (10/15); was 6.8 (06/13 and 03/13); was 6.6 (11/11 and 08/12 and 06/12); was 6.5 (04/12); was 6.3 (10/13): was 6.3 (02/09); was 6.5 (11/08) but FBG= 104. 05/11: BG= 93.8.7 (per pt by PCP POC); 8.2 (02/12); was 7.7 (01/12) was 7.1 (10/15); was 6.8 (06/13 and 03/13); was 6.6 (11/11 and 08/12 and 06/12); was 6.5 (04/12); was 6.3 (10/13): was 6.3 (02/09); was 6.5 (11/08) but FBG= 104. 05/11: BG= 93.); microalbumin/creatinine ratio: 09/15: normal; serum creatinine: (1.3 (09/15 and 02/12); was 1.4 (06/13) - stable); LDL at goal (68 (06/13); was 50.8 (11/11)52 (02/12); was 68 (06/13); was 50.8 (11/11)); Triglycerides (281 (06/13); was 231 (11/11); was 271 (08/12); was 223 (06/12); was 209 (04/12); was 153 (10/13); was 227 (02/09); was 230 (05/11); was 314 (11/08)); HDL (50 (06/13); was 41 (11/11); was 49 (06/12); was 53 (04/12); was 42 (10/13); was 47 (02/09); was 35 (; was 35 (11/08)); 09/15: No steroids. 05/15: on prednisone in 04/22 x 5 days for back inflammation. Diabetes Medications:pioglitazone (15 mg BID.(started 2018)); Tried metformin- GI s/e. Trulicity 0.75 (weekly). Some nausea and bloating. No change from before. Renal/HTN Medications:NO MEDS Lipid Medications:rosuvastatin (40); fenofibrate (54mg x2.) Other Medications:Linzess CREON (11/2020 by GI); TID Generally eats 1-2 meals/day. bloating. Associated Symptoms:no polyuria (3-4x per day. Every couple of hours.); no nocturia (1x per night.); no burning or discomfort with urination;polydypsia(four 16 oz bottles. Has dry mouth (tizanidine).);blurred vision(with reading. (Gus) - due 11/2022); no weight gain; no weight loss; WEIGHT: 175 (09/15); was 190s before; was 189 (10/15); was 195 at home (11/11); was 185 at home (stable in 06/12). Cardiac / Eye / Podiatric / Renal / Vascular Symptomsno coronary artery disease; no retinopathy; no numbness of feet; no kidney diseaseNotes: DM based on 2 values at or above 6.5% 06/12 History of chronic pancreatitis.AST= 22 (09/15) was 35 (06/13) 45 (10/13); was 36 (02/09): was 43 (05/11); was 66(11/08); was 70 (05/10); was 68 (11/07);ALT= 29 (09/15) was 39 (06/13); was 39 (10/13); was 52 (02/09); was 43 (05/11); was 48 (11/08); was 85 (05/10); was 67 (11/07) 2019- Put on Actos given pre-diabetes and high TG and fatty liver. TG and AST both improving.He was placed on metformin 750 mg but told it was OK to stop. LIPIDS:TG highest was 1900 in 2007 and 877 in 07/05.09/15: 112/214/47/: 147/245/46/52 Checking blood sugars mostly in AMB= 120-220 (09/15); Used to check two times daily..........FBS.......................... .......L............................D....... ...........BT9/26..1749/25...137............ ............................................ ........................2009/24...176....... ............................................ ...........................1919/23...162.... ............................................ ..............................1759/22...122. ............................................ ................................1139/21...24 1........................................... ...................................2399/20.. .158........................................ .....................................1519/19 ............................................ ............................................ 1399/17...195............................... ............................................ .: Likely add GLIP 2.5 bid or sglt2i. Reviewed options- talk to MICH Valdez about incretin. 06/12: Now has 2 values at or above 6.5% and therefore indicates T2DM.May be eligible for meds to help fatty liver. 2019- Put on Actos given pre-diabetes and high TG and fatty liver. TG and AST both improving.He was placed on metformin 750 mg but told it was OK to stop. PCP: Crystal: José Miguel in [facility] to [place] for GI- told pancreas was OK. Thought fatty liver was contributing. 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 SOCIAL Hx (updated):Walks for exerciseLives with girlfriend (Kaylynn)05/15: walks a little - limited by low back. 1/2 mile. 4x per week.09/15: Walks: about 2 miles at a time. FAMILY Hx (updated):Mom alive in [place] (81 in 05/15). On dialysis since 2013. T2DM.6 Sisters healthy. No kid: No changes. PANCREATITIS AND FATTY LIVER:Pancreatitis 12/08/2020- had gallbladder removed 01/2021 - [facility]. Feeling bcgzei99/21: Saw surgeon in [place] to take GB out- Surgery was 02/10.No pain since then.Elastography done 08/12: IGR to median ratio is <15% so liver stiffness is acceptable. 10/15: Still On oxy 10mg every 6 hours for pain. It helps.05/15: Oxy helps pancreatitis but now moreso for neck/back.Abdominal pain has been better after GB outOcc nausea but no vomiting. On zofran prn.No EtOH. History of chronic pancreatitis.AST=45 (04/14@#PVIX); was 38 (02/12); was 35 (06/13) 45 (10/13); was 36 (02/09): was 43 (05/11); was 66(11/08); was 70 (05/10); was 68 (11/07);ALT= 27 (04/14@PVIX) was 36 (02/12); was 39 (06/13); was 39 (10/13); was 52 (02/09); was 43 (05/11); was 48 (11/08); was 85 (05/10); was 67 (11/07).05/15: GI is José Miguel. MRI of liver 2022- still has NAFLD. told of cyst in pancreas - watching. 09/15: Bloating depends on what he eats.Nausea on/off. Zofram helps. No vomiting.No EtOH. ROS:No fevers or chills.Ongoing h/a- happens daily. Imitrex for that.Comes from neck pain (calls the migraines) mostly from jes pain.OFF emgality didn't help.aimovigNeck problems (had fusion and still has disc problems). No SOB.COVID in 04/13. Was bad. Had bronchitis. No CP or pressure.Lot of gas. Heartburn. omeprazole. MUSCLES: Low back pain. Ongoing- Neck, back and shoulders. left arm too No temperature intolerance. cold sweats.On Linzess for constipation- helps from oxy- helps. tends to have diarrhea since GB out.Occ. dizziness with standing in AM. Immanuel Krishna MD [address] [place] [address], [place], [phone] , [facility] 4 14:56:51 10/27 text/ html Previous Hx :Had previous Nurse visit 06/2023 - dietary intake done at that visitMD LV - 08/2023 :Options:BREWER- increased risk for [id number]- increased risk for GUincretin- risk for pancreatitis but he hasn't had any severe bouts since GB out.He didn't tolerate metformin when tried in past. Metformin not much benefit for NAFLD.Has done well on 0.75 trulicity.09/15: Increase to 1.5(Pt needs BG better to get shot in low back)F/U with ENDO RN to make sure glucose values improving. 10/28/23 ENDO Nurse visit :Here for glucometer download, interpretation by Dr Krishna and medication adjustment/plan. Last HgbA1c - a1c= 8.1 (09/15); was 8.9 (05/15) was 8.7 (per pt by PCP POC); 8.2 (02/12); was 7.7 (01/12) was 7.1 (10/15); was 6.8 (06/13 and 03/13) Diabetic medications and current doses:1.) Pioglitzone 30 mg once daily (used for high TG and fatty liver in addition to DM)2. ) Trulicity 0.75 mg weekly - never went up to 1.5 mg dose d/t to shortage and not being able to find pharmacy that had this in stock Barriers to taking any meds?noneCarb counting ? noPt understanding for small, med, large carb meals - dosing?n/aMeal times/ typical meal includes:none - only eats once daily around 2 pm - see's GI2PM - sand which or rice and beans water or juiceSnack: 10 pm - slice of bread and grape juiceHS : 8- 9PM Exercise routine : walks daily - 1 mile Recent illness: low back has been bothering himSeen by GI toady 10/28/23 - Dr Valdez:- had ABD MRI 03/2023- Hepatic steatosis.- atrophy of pancreatic head with similar mild dilation of proximal pancreatic duct. Coarse calcifications also seen. likely sequela of chronic pancreatitis.- had upper endoscopy and colonoscopy - all normal - polyps removed, benign.- Dr Valdez said pancreas still puts at high risk for pancreatitis - damaged from chronic pancreatitis and at risk for pancreatitis - has small cyst on pancreas. Pt has constant nausea - takes zofran. Glucometer reveals : checks once daily at different times in the usually morning before 2 pm day. - eats meal at 2 pm only - all tests results are fasting.Dates - 30 days 09/29/23 - 10/28/23Ave BS - 186Time in range, target range ( 70 -180) = 48%Very High (>250) = 14%High (181-250) = 38%Low (54-69) = 0%Very Low ( <54) = 0%Highest - 274Lowest- 123Median - 184 Plan:FBS goal - 80-1302 hr PP goal - 180 - 200 DR KRISHNA TO REVIEW BS RESULTS VIA GLUCOMETER AND DIABETES MANGEMENT Reviewed S/S hypoglycemia - handout given, reviewed how/when to treat ? pt aware and no lowsNV with MD - 04/05/24 12:20 PM [facility] [place] [place] with Nursing - 6 weeksRX's sent to pharmacy - If none - refills needed on any meds ? Accu chek test strips for 3 times dailyFenofibrate for 54 mg 2 tabs dialy - (pt cannot tolerate 120mg tab daily d/t nausea)Lab orders - In place until 08/2024DME forms completed?N/ANurse : Valerie Thomson,LAURA Krishna MD [address] [place] [address], [facility] [place], [phone] , [facility] 4 16:58:25 12/06 text/ html Previous Hx :Nurse visit 06/2023 - dieta ry intake done at that visitNurse visit 10/2023 -MD MCCOY - 08/2023 :Options:BREWER- increased risk for [id number]- increased risk for GUincretin- risk for pancreatitis but he hasn't had any severe bouts since GB out.He didn't tolerate metformin when tried in past. Metformin not much benefit for NAFLD.Has done well on 0.75 trulicity.09/15: Increase to 1.5(Pt needs BG better to get shot in low back)F/U with ENDO RN to make sure glucose values improving. 10/28/23 ENDO Nurse visit :Here for glucometer download, interpretation by Dr Krishna and medication adjustment/plan. Last HgbA1c - 10/2023 = 8.3% = 8.1 (09/15); was 8.9 (05/15) was 8.7 (per pt by PCP POC); 8.2 (02/12); was 7.7 (01/12) was 7.1 (10/15); was 6.8 (06/13 and 03/13) Diabetic medications and current doses:1.) Pioglitzone 30 mg once daily (used for high TG and fatty liver in addition to DM)2. ) Trulicity 1.5 mg dose - started 2 weeks ago Barriers to taking any meds?noneCarb counting ? noPt understanding for small, med, large carb meals - dosing?n/aMeal times/ typical meal includes:none - only eats once daily around 2 pm - see's GI2PM - sand which or rice and beans water or juiceSnack: 10 pm - slice of bread and grape juiceHS : 8- 9PM Exercise routine : walks daily - 1 mile Recent illness: low back has been bothering him Seen by GI toady 10/28/23 - Dr Valdez:- had ABD MRI 03/2023- Hepatic steatosis.- atrophy of pancreatic head with similar mild dilation of proximal pancreatic duct. Coarse calcifications also seen. likely sequela of chronic pancreatitis.- had upper endoscopy and colonoscopy - all normal - polyps removed, benign.- Dr Valdez said pancreas still puts at high risk for pancreatitis - damaged from chronic pancreatitis and at risk for pancreatitis - has small cyst on pancreas. Pt has constant nausea - takes zofran. Glucometer reveals : checks once daily at different times in the usually morning before 2 pm day. - eats meal at 2 pm only - all tests results are fasting. - Started Trulicity 1.5 mg 2 weeks ago - pt already has seen lower blood sugar Dates - 30 days 09/29/23 - 10/28/23 - checking blood sugars 2-3 times daily -( ave 2.2 daily )Ave BS - 175Time in range, target range ( 70 -180) =66%Very High (>250) = 9%High (181-250) = 25%Low (54-69) = 0%Very Low ( <54) = 0%Highest - 341Lowest- 105Median - 161 Plan:FBS goal - 80-1302 hr PP goal - 180 - 200 DR KRISHNA IN TO SEE PT AND TO REVIEW BS RESULTS VIA GLUCOMETER AND DIABETES MANGEMENT Plan :1.) - Increase Trulicity to 3 mg weekly after completing 4 week course of 1.5 mg weekly2.) -RN/MD appt after taking 3 mg x at least 4 weeks - January 2024 - when Dr Krishna is in office.3)- Lab one week prior to RN/MD appt4.)- If increased back pain and cannot wait for A1c to get to 7's ( per Ortho plan for injection of steroid) - call nursing - will do CGM trial to document blood sugars and hopefully improved so we can talk with ortho about this.Reviewed S/S hypoglycemia - handout given, reviewed how/when to treat ? pt aware and no lowsNV with MD - 04/05/24 12:20 PM [facility] [place] [place] with Nursing - 6 weeksRX's sent to pharmacy - If none - refills needed on any meds ? Trulicity 3 mg to [facility] Lab orders - In place until 08/2024DME forms completed?N/ANurse : Valerie Thomson,LAURA Krishna MD [address] [place] [address], [place], [phone] , [facility] 4 19:01:09 04/05 text/ html DiabetesReported bypatient.Labs:last Hemoglobin A1C: at goal (7.8 (02/13); was 8.3 (11/13) was 8.1 (09/15); was 8.9 (05/15) was 8.7 (per pt by PCP POC); 8.2 (02/12); was 7.7 (01/12) was 7.1 (10/15); was 6.8 (06/13 and 03/13); was 6.6 (11/11 and 08/12 and 06/12); was 6.5 (04/12); was 6.3 (10/13): was 6.3 (02/09); was 6.5 (11/08) but FBG= 104. 05/11: BG= 93.); microalbumin/creatinine ratio: 2023: normal; serum creatinine: (1.3 (02/13 and 09/15 and 02/12); was 1.4 (06/13) - stable); since 09/15: No steroids. 05/15: on prednisone in 04/22 x 5 days for back inflammation. Diabetes Medications:pioglitazone (30mg daily.( was 15 bid started 2018)); Tried metformin- GI s/e. Trulicity 3.0 (weekly). Helping. No problems with GI s/e. Renal/HTN Medications:NO MEDS Lipid Medications:fenofibrate (54mg x2.); rosuvastatin (40) Other Medications:Linzess CREON (11/2020 by GI); TID Generally eats 1-2 meals/day. bloating. Associated Symptoms:no polyuria (2-3x per day. Every couple of hours.); no nocturia (1x per night.); no burning or discomfort with urination;polydypsia(four 16 oz bottles. some thirst and somewhat intentional. Dry mouth (tizanidine).);blurred vision(with reading. (Gus) - appt in 07/16.); WEIGHT (home): 167 (04/15); was 175 (09/15); was 190s before; was 189 (10/15); was 195 at home (11/11); was 185 at home (stable in 06/12). Cardiac / Eye / Podiatric / Renal / Vascular Symptomsno coronary artery disease; no retinopathy; no numbness of feet; no kidney disease Hypoglycemia Symptomsfrequency of hypoglycemic episodesinfrequently; If don't eat all day, might be in high 90s.Notes: DM based on 2 values at or above 6.5% 06/12 History of chronic pancreatitis.AST= 27 (02/13) was 22 (09/15) was 35 (06/13) 45 (10/13); was 36 (02/09): was 43 (05/11); was 66(11/08); was 70 (05/10); was 68 (11/07);ALT= 32 (02/13); was 29 (09/15) was 39 (06/13); was 39 (10/13); was 52 (02/09); was 43 (05/11); was 48 (11/08); was 85 (05/10); was 67 (11/07) 2019- Put on Actos given pre-diabetes and high TG and fatty liver. TG and AST both improving.He was placed on metformin 750 mg but told it was OK to stop. LIPIDS:02/13: 109/123/52/32TG highest was 1900 in 2007 and 877 in 07/05.09/15: 112/214/47/226/23: 147/245/46/52 METER DOWNLOAD/REVIEWAM= 120-220 (04/15);afternoon (post-meal)= 110-220 (04/15);HS= 100-190 (04/15); 06/12: Had 2 values at or above 6.5% and therefore indicates T2DM.May be eligible for meds to help fatty liver. 2019- Put on Actos given pre-diabetes and high TG and fatty liver. TG and AST both improving.He was placed on metformin 750 mg but told it was OK to stop. PCP: Crystal: José Miguel in [facility] to [place] for GI- told pancreas was OK. Thought fatty liver was contributing. Follow-Up: non-alcoholic fatty liverFollow-Up: pure hyperglyceridemiaFollow-Up: pure hypercholesterolemiaHypertriglyceridemiaDiab etes Type IIissues; wants to schedule cortisone injection with pain management in [place] and needs to be able to tell his Aic at scheduling time . 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 (was off since 06/14)Injection for migraine q 28 days.COVID in 02/13. lasted about a week. No meds. SOCIAL Hx (updated):Walks for exerciseLives with girlfriend (Kaylynn)05/15: walks a little - limited by low back. 1/2 mile. 4x per week.09/15: Walks: about 2 miles at a time.04/15: Walking 1 mile TIS. Limited by back issues. FAMILY Hx (updated):Mom alive in [place] (81 in 05/15). On dialysis since 2013. T2DM.6 Sisters healthy.No kid: No changes.04/15: Mom doing OK (82); Dad 02/13- colon CA (age 89) PANCREATITIS AND FATTY LIVER:Pancreatitis 12/08/2020- had gallbladder removed 01/2021 - [facility]. Feeling evhmol91/21: Saw surgeon in [place] to take GB out- Surgery was 02/10.No pain since then.Elastography done 08/12 ([facility]): IGR to median ratio is <15% so liver stiffness is acceptable. 10/15: Still On oxy 10mg every 6 hours for pain. It helps.05/15: Oxy helps pancreatitis but now moreso for neck/back.Abdominal pain has been better after GB outOcc nausea but no vomiting. On zofran prn.No EtOH.04/15: Still on pain meds for back. Hope to get steroid shot soon- told needs a1c under 7.5 before shot can be administered. Discussed BG will go up no matter what.On Linzess for constipation- helps from oxy. Can have diarrhea since GB out. History of chronic pancreatitis.AST=45 (04/14@#PVIX); was 38 (02/12); was 35 (06/13) 45 (10/13); was 36 (02/09): was 43 (05/11); was 66(11/08); was 70 (05/10); was 68 (11/07);ALT= 27 (04/14@PVIX) was 36 (02/12); was 39 (06/13); was 39 (10/13); was 52 (02/09); was 43 (05/11); was 48 (11/08); was 85 (05/10); was 67 (11/07).05/15: GI is José Miguel. MRI of liver 2022- still has NAFLD. told of cyst in pancreas - watching. Occ nausea. No vomiting. Still takes Zofram prn.No EtOH. ROS:Ongoing h/a- happens daily. Imitrex for that.Comes from neck pain (calls the migraines) mostly from jes pain.Neck problems (had fusion and still has disc problems).OFF emgality didn't help.04/15: Getting Aimovig and sumitriptan. No SOB.COVID in 03/15 and 04/13. No CP or pressure.Ongoing Heartburn. omeprazole. MUSCLES: Ongoing- Neck, back and shoulders. Lately (04/15), right arm. No temperature intolerance. Ongoing- cold sweats.Occ. dizziness with standing in AM. Immanuel Krishna MD [address] [place] [address], [place], [phone] , [facility] 4 13:12:46 08/03 text/ html HX :[facility] 10/2023:Last HgbA1c - 7.6 [...] GI d/t GI upset and hx pancreatitis/fatty [id number] - sand which or rice and beans [...] has been bothering him Seen By Dr Krishna 04/05/24 HX updated :04/15: Still on pain meds for back. Hope to get steroid shot soon- told needs a1c under 7.5 before shot can be administered. Discussed BG will go up no matter what.On Linzess for constipation- helps from oxy. Can have diarrhea since GB out.04/15: Still sees José Miguel ( GI) - fatty liver - chronic pancreatitis-Schedule for updated elastography.Needs to improve BG to [...] 04/23/24 [facility] [place] - Aug 2024Updated A1c - 7.6 % [...] POST MEAL IN PM ---- AND HS 08/03 --------- 85 08/02 --------- 97 PM - 122 HS --- 109 08/01--- -------109 152 --------- 148 12/09--- ------- 79 126 ---109 12/8- ------ ---- 110 134 --- 151 12/7 99 127------ 104 -------12/6 93 --147 162 12/5 115------- 101 166------ 12/4 104 106 -142 123-- 103 162--------- 116 ----07/24 104 10 7 07/23----- -------103 116 --------[address] Krishna 10/10/24 = [facility] 3:30 PMNext Visit RN -Labs - Due for a1c this monthNurse: LAURA Arauz MD [address] [place] [address] [place], [phone] , [facility] 4 13:18:52
[2024-10-06] MEDS: 0.9 % Sodium Chloride 1,000 ML 999 ML IV ×2 (07:25→10:25)
[2024-10-06] MEDS: ondansetron HCL 4 MG/2 ML VIAL IVPUSH (07:51)
[2024-10-06] MEDS: HYDROmorphone HCl 1 MG/ML SYRINGE IVPUSH ×3 (07:53→11:25)
[2024-10-06] MEDS: iohexoL 350 MG/ML 100 ML INFUS..BTL IV (09:57)
[2024-10-06 10:09] VITALS: BP 99/54; PULSE 108; RESP 20; TEMP 36.3; O2SAT 100
[2024-10-06 10:52] VITALS: BP 114/74; PULSE 79; RESP 18; TEMP 36.8; O2SAT 97
[2024-10-06 11:30] VITALS: BP 114/74; PULSE 79; RESP 18; TEMP 36.8; O2SAT 97
== END 2024-10-06 11:30 | disposition home or self-care (01) ==
PROVIDERS: Emergency Provider Emergency Medicine; PCP Family Medicine
DX: K85.90 Acute pancreatitis without necrosis or infection, unspecified (principal); Z79.899 Other long term (current) drug therapy
CPT/HCPCS: 0241U; 36415; 74177; 80053; 82248; 83690; 85025; 99283; J1171; J2405; Q9967

== ENCOUNTER → 2024-10-06 09:05 | Outpatient (BNV) | payer MEDICARE, MEDICAID, SELFPAY | PROVIDERS: Emergency Provider Emergency Medicine; PCP Family Medicine; Visit Provider Radiology Diagnostic Radiology | DX: K86.1 Other chronic pancreatitis (principal); N20.0 Calculus of kidney | CPT/HCPCS: 74177 ==

== ENCOUNTER 2024-10-09 18:03 | Inpatient (IN) | payer MEDICARE, MEDICAID, SELFPAY ==
[2024-10-09] VITALS (7 sets, daily range): BP systolic 114–137; BP diastolic 54–88; PULSE 81–100; RESP 14–17; TEMP 36.6; O2SAT 96–100; BMI 28.7
--- NOTE | ~2024-10-09 | CT_ITS ---
CLINICAL HISTORY: worsening abominal pain, chronic pancreatitis CT abdomen and pelvis with contrast Comparison: 10/06/2024 Findings: Improving bilateral basilar atelectasis. No acute bony abnormalities. Pancreatic head calcifications consistent with chronic pancreatitis. Chronic mild pancreatic ductal dilation, unchanged. Minimal stranding adjacent to pancreatic tail. Findings are consistent with acute pancreatitis. No focal pancreatic abnormality noted. Fatty infiltration of the liver without focal abnormality. Spleen and adrenal glands unremarkable. Cholecystectomy. Nonobstructing left renal stones noted. No bilateral ureteral stone or hydronephrosis. Abdominal aorta is normal in caliber. No free fluid or adenopathy in the pelvis. No diverticulitis. Appendix not identified Impression: Acute pancreatitis involving pancreatic tail Chronic pancreatic findings also noted This document has been electronically signed by: Miky Reese MD on 10/09/2024 20:24:39
--- NOTE | ~2024-10-09 | CT_ITS ---
CLINICAL HISTORY: abd pain pancreatitis,hypotension CT abdomen and pelvis with contrast Comparison: 10/09/2024 Findings: Bilateral multifocal lower lobe atelectasis. No acute bony abnormalities. Pancreatic head calcifications again noted. Pancreatic ductal dilation is unchanged. Findings are consistent with chronic pancreatitis. No acute pancreatic abnormality identified. Liver and spleen within normal limits. Bilateral adrenal glands unremarkable. Cholecystectomy. Nonobstructing small left renal stones. No right renal or bilateral ureteral stone. No significant focal renal abnormality. Chronic bilateral perinephric stranding. Abdominal aorta is normal in caliber. No free fluid or adenopathy in the pelvis. No diverticulitis. Appendix not identified. Impression: Chronic pancreatitis findings without acute process Multifocal lung base atelectasis This document has been electronically signed by: Miky Reese MD on 10/12/2024 23:41:29
--- NOTE | ~2024-10-09 | CT_ITS ---
CLINICAL HISTORY: headaches ,numbness CT head without contrast Comparison: None Findings: No intracranial mass, midline shift, hydrocephalus, or acute hemorrhage. No acute process in sinuses or mastoids. No acute bony abnormality. Impression: No acute intracranial process This document has been electronically signed by: Miky Reese MD on 10/12/2024 23:18:22
--- NOTE | 2024-10-09 18:17 | ECG_ITS ---
Test Reason : EPIGASTRIC PAIN Blood Pressure : */* mmHG Vent. Rate : 90 BPM Atrial Rate : 90 BPM P-R Int : 158 ms QRS Dur : 106 ms QT Int : 368 ms P-R-T Axes : 34 39 7 degrees QTcB Int : 450 ms Normal sinus rhythm Possible Left atrial enlargement Borderline ECG When compared with ECG of 09-Dec-2020 01:54, No significant change was found Referred By: Bibiana Ochoa Electronically Signed By: JAYCEE PELAYO
--- NOTE | 2024-10-09 18:40 | ED_ITS ---
HPI - General Adult General Chief complaint: Abdominal Pain Stated complaint: ? sepsis per ems, abd pain,nausea, hx pancreatitis Time Seen by Provider: 10/09/24 18:05 Source: patient Mode of arrival: ambulatory Limitations: no limitations History of Present Illness ED Provider: Dr. Bibiana Ochoa HPI narrative: Patient comes to the emergency room complaining of epigastric pain. Patient states that the pain has been present for about 10 days. Patient known to have chronic pancreatitis. Patient states that patient has been diagnosed previously with gallstones, had a cholecystectomy about a year ago. Patient complaining of nausea, no vomiting or diarrhea. Patient was seen here 3 days ago, patient was sent home with pain medications, states that the oxycodone is not working. Related Data Home Medications ?Medication ?Instructions ?Recorded ?Confirmed fenofibrate 54 mg tablet 2 tab PO DAILY 12/08/20 08/31/24 fluoxetine 20 mg capsule 1 cap PO DAILY 12/08/20 08/31/24 nortriptyline 25 mg capsule 25 cap PO BEDTIME 12/08/20 08/31/24 ondansetron 4 mg disintegrating 1 tab PO Q8H PRN Nausea And 12/08/20 08/31/24 tablet Vomiting oxycodone 10 mg tablet 1 tab PO QID PRN Pain 12/08/20 08/31/24 pioglitazone 15 mg tablet 1 tab PO BID 12/08/20 08/31/24 rosuvastatin 40 mg tablet 1 tab PO DAILY 12/08/20 08/31/24 sumatriptan succinate 100 mg tablet 100 mg PO DAILY PRN Migraine 12/08/20 08/31/24 Headache tizanidine 4 mg tablet 1 tab PO TID 12/08/20 08/31/24 zolpidem 10 mg tablet 10 tab PO BEDTIME PRN Insomnia 12/08/20 08/31/24 cholecalciferol (vitamin D3) 25 25 mcg PO DAILY 11/27/21 08/31/24 mcg (1,000 unit) capsule docusate sodium 100 mg capsule 100 mg PO BID PRN Constipation 05/28/22 08/31/24 dulaglutide 3 mg/0.5 mL 4.5 mg subcut QWEEK 08/31/24 08/31/24 subcutaneous pen injector (Trulicity) Previous Rx's ?Medication ?Instructions ?Recorded omeprazole 40 mg capsule,delayed 40 mg PO BID 60 days #120 caps 06/24/23 release linaclotide 145 mcg capsule 145 mcg PO QAM #90 caps 04/25/24 (Linzess) nemfvp-[id number] 3 cap PO TID 90 days #810 caps 08/31/24 12,000-38,000-60,000 unit capsule,delayed rel (Creon) alprazolam 1 mg tablet (Xanax) 1 mg PO ONCE 1 day #1 tab 09/04/24 Allergies Allergy/AdvReac Type Severity Reaction Status Date / Time gabapentin [GABAPENTIN] Allergy Mild RASH Verified 10/09/24 18:21 famotidine [From Pepcid] Allergy Unknown RASH Verified 10/09/24 18:21 pregabalin [From LYRICA] Allergy Unknown VOMITING Verified 10/09/24 18:21 pantoprazole [From Protonix] Allergy Rash Verified 10/09/24 18:21 ibuprofen [From Advil] AdvReac Unknown STOMACH Verified 10/09/24 18:21 UPSET morphine AdvReac Headache Verified 10/09/24 18:21 Review of Systems 2 Review of Systems: Constitutional : No Weight loss, No Fever, No Chills, No Night Sweats, No Fatigue, No Malaise ENT/Mouth : No Hearing loss, No Ear Pain, No Nasal Congestion, No Sinus Pain, No Hoarseness, No sore throat, No Rhinorrhea, No Swallowing Difficulty Eyes: No Eye Pain, No Swelling, No Redness, No Foreign Body, No Discharge, No Vision Changes Cardiovascular : No Chest Pain, No SOB, No Dyspnea on Exertion, No Orthopnea, No Edema, No Palpitations Respiratory : No Cough, No Sputum, No Wheezing, No Smoke Exposure, No Dyspnea Gastrointestinal : No Nausea, No Vomiting, No Diarrhea, No Constipation, complaining of acute on chronic epigastric pain, worsening throughout the last few days Genitourinary : no irregular bleeding, No Dysuria, No Urinary Frequency, No Hematuria, No Urinary Incontinence, No Urgency, No Flank Pain, No Urinary Flow Changes, No Hesitancy Musculoskeletal : No joint pain, No Myalgias, No Joint Swelling Skin : No Skin Lesions, No rash Neuro : No Weakness, No Numbness, No Paresthesias, No Loss of Consciousness, No Dizziness, No Headache Psych : No Anxiety/Panic, No Depression, No SI/HI/AH/VH, No Social Issues, Heme/Lymph: No Bruising, No Bleeding,No Lymphadenopathy Endocrine : No Polyuria, No Polydipsia, No Temperature Intolerance [facility] Past Medical History Medical History Diabetes Kidney stone Pancreatitis Migraine HTN (hypertension) Depression Surgical History S/P laparoscopic cholecystectomy (02/12/21) History of elbow surgery Hx of endoscopy Hx of colonoscopy H/O neck surgery Social History Social History Household Members: Spouse Housing: Apartment Do you presently have visiting nurse or other home services: No Alcohol intake: never Patient Tobacco Use Status: Never used Tobacco Smoked in Last 30 Days: No Second Hand Smoke Exposure: No Use of substances other than those prescribed or required for medical reasons: No Advance Directives: Yes Advance Directives on File: Yes Advance Directives Date on File: 12/19/20 Do you have a plan to hurt others: No Plan service: No Current occupational status: disabled Physical Exam ED Vital Signs: Vital Signs - 24 hr 10/09/24 18:19 10/09/24 18:58 10/09/24 19:07 Temperature 97.9 F 97.8 F Pulse Rate 92 89 Respiratory Rate 16 14 16 Blood Pressure 137/88 125/75 Pulse Oximetry 100 96 Oxygen Delivery Method Room Air Room Air 10/09/24 20:26 Temperature Pulse Rate Respiratory Rate 15 Blood Pressure Pulse Oximetry Oxygen Delivery Method BMI result Body Mass Index 28.7 Const Other: Appearance: Alert. Oriented X3. Seems uncomfortable Eyes: Pupils equal, round and reactive to light. ENT: Pharynx normal. Neck: Normal inspection. Neck supple. No lymph nodes noted. No crepitus CVS: Normal heart rate and rhythm. Pulses normal. Normal S1 and S2 Respiratory: No respiratory distress. Breath sounds normal. No Wheezing. No rales Abdomen: Soft mild tenderness to palpation in the epigastric area, no rebound or guarding, No rigidity. No distention. Skin: Skin warm and dry. Normal skin color. Normal skin turgor. Extremities: No lower extremity edema. No Lacerations. No Rash Neuro: Oriented X 3. No motor deficit. No sensory deficit. Moving all extremities. No slurred speech. CN 2 through 12 grossly intact Psych: calm, cooperative, normal affect Course Course Course Narrative: Patient receiving IV fluids, Zofran and Dilaudid for pain. All of patient's labs and imaging pending Medications Administered Generic Name Dose Route Start Last Admin Trade Name Freq PRN Reason Stop Dose Admin Magnesium Sulfate 2 gm in 50 mls @ 25 mls/hr 10/09/24 19:50 10/09/24 19:56 Magnesium Sulfate/H2o IV 10/09/24 21:49 25 mls/hr ONCE ONE Administration Discontinued Medications Generic Name Dose Route Start Last Admin Trade Name Freq PRN Reason Stop Dose Admin Hydromorphone HCl 1 mg 10/09/24 18:42 10/09/24 18:58 Hydromorphone Hcl 1 Mg/Ml Syringe IVPUSH 10/09/24 18:43 1 mg ONCE ONE Administration Protocol Hydromorphone HCl 1 mg 10/09/24 20:21 10/09/24 20:26 Hydromorphone Hcl 1 Mg/Ml Syringe IVPUSH 10/09/24 20:22 1 mg ONCE ONE Administration Protocol Sodium Chloride 1,000 mls @ 999 mls/hr 10/09/24 18:16 10/09/24 20:00 Ns IVCONT 10/09/24 19:16 Infused .Q1H1M ONE Infusion Iohexol 100 ml 10/09/24 19:44 10/09/24 19:44 Iohexol 350 Mg/Ml 100 Ml Infus..Btl IV 10/09/24 19:45 85 ml ONCE ONE Administration Ondansetron HCl 4 mg 10/09/24 18:16 10/09/24 18:57 Ondansetron Hcl 4 Mg/2 Ml Vial IVPUSH 10/09/24 18:17 4 mg ONCE ONE Administration Medical Decision Making Medical Decision Making MDM Narrative: My interpretation of labs: No acute abnormality in patient's hematology and chemistry, except magnesium of 1.2. Patient's LFTs and lipase within normal limits. CT scan of the abdomen does not show any acute abnormalities, patient known to have chronic pancreatitis. IV magnesium was given to the patient. Also, patient received 2 doses of Dilaudid and IV fluids, Zofran, patient states that he is still in significant pain. I discussed the patient with Dr. Dozier, patient being admitted Differential Diagnosis Differential Diagnoses: The differential diagnosis associated with the presentation includes (Acute pancreatitis, acute on chronic pancreatitis, pancreatic abscess) Admission/Observation Consideration of admission/observation: Escalation of care including admission/observation considered Consult Healthcare Provider Management of the patient was discussed with: Hospitalist Lab Data MDM Lab Attestation statement: I reviewed the patient's lab results. 10/09/24 18:37 10/09/24 18:37 Labs: Lab Results 10/09/24 10/09/24 Range/Units 18:37 18:49 WBC 5.1 (4.8-10.8) X10*3/uL RBC 4.08 L (4.60-5.80) X10*6/uL Hgb 11.6 L (14.0-18.0) g/dl Hct 34.6 L (42.0-52.0) % MCV 84.8 (80.0-98.0) fL MCH 28.4 (27.0-33.0) pg MCHC 33.5 (31.0-36.0) g/dl RDW 13.8 (11.0-16.0) % Plt Count 186 (160-400) X10*3/uL MPV 12.5 H (9.4-12.4) fL Immature Gran % (Auto) 0.4 (0.0-0.4) % Neut % (Auto) 53.7 (45-73) % Lymph % (Auto) 34.2 (20-40) % [place] % (Auto) 10.7 (2-11) % Eos % (Auto) 0.6 (0-4) % Baso % (Auto) 0.4 (0-2) % Lymph # (Auto) 1.7 (1.2-4.9) X10*3/uL [place] # (Auto) 0.5 (0.1-1.2) X10*3/uL Eos # (Auto) 0.0 (0.0-0.4) X10*3/uL Baso # (Auto) 0.0 (0.0-0.2) X10*3/uL Abs Immat Gran (auto) 0.02 (0.00-0.03) X10*3/uL Absolute Neuts (auto) 2.7 (2.0-8.3) x10*3/uL Absolute Nucleated RBC 0.000 (0.0-0.012) X10*3/uL Nucleated RBC % (auto) 0.0 (0.0-0.2) /100WBC Sodium 141 (135-145) mmol/L Potassium 4.1 (3.3-5.1) mmol/L Chloride 112 H (96-108) mmol/L Carbon Dioxide 21 L (22-29) mmol/L Anion Gap 12 (12-20) BUN 15 (9-16) mg/dL Creatinine 1.27 (0.5-1.4) mg/dL Estim Creat Clear Calc 63.4 Estimated GFR 60 Random Glucose 148 H (60-115) mg/dL Calcium 10.1 (8.4-10.2) mg/dL Magnesium 1.2 L* (1.6-2.6) mg/dL Total Bilirubin 0.3 (0.0-1.0) mg/dL Direct Bilirubin 0.2 (0.0-0.5) mg/dL AST 37 (5-37) U/L ALT 21 (0-40) U/L Alkaline Phosphatase 53 (39-117) U/L Troponin I High Sens 2.8 (<3.5-35.0) ng/L Total Protein 7.6 (6.5-8.0) g/dL Albumin 4.0 (3.5-5.0) g/dL Triglycerides 237 H (<150) mg/dL Lipase 49 (8-78) U/L Urine Color Yellow Urine Appearance Clear Urine pH 6.0 (5.0-9.0) Ur Specific [place] 1.020 (1.005-1.025) Urine Protein Negative (Neg-Trace) mg/dL Urine Glucose (UA) Negative (Negative) mg/dL Urine Ketones Negative (Negative) mg/dL Urine Blood Negative (Negative) Urine Nitrite Negative (Negative) Ur Leukocyte Esterase Negative (Negative) Ethyl Alcohol < 10 mg/dL Independent Interpretation I performed an independent interpretation of an: CT Scan Radiology Impression Discussion of test interpretation with radiology: I have reviewed the radiologist's reading. Radiologist Impression: Improving bilateral basilar atelectasis. No acute bony abnormalities. Pancreatic head calcifications consistent with chronic pancreatitis. Chronic mild pancreatic ductal dilation, unchanged. Minimal stranding adjacent to pancreatic tail. Findings are consistent with acute pancreatitis. No focal pancreatic abnormality noted. Fatty infiltration of the liver without focal abnormality. Spleen and adrenal glands unremarkable. Cholecystectomy. Nonobstructing left renal stones noted. No bilateral ureteral stone or hydronephrosis. Abdominal aorta is normal in caliber. No free fluid or adenopathy in the pelvis. No diverticulitis. Appendix not identified Impression: Acute pancreatitis involving pancreatic tail Chronic pancreatic findings also noted Critical Care Time Critical Care Time Critical Care Time: Yes Total Critical Care Time: 60 Attestation: I have personally provided critical care time. Time includes review of lab data, radiology results, discussion with consultants, and monitoring for potential decompensation. Intervention performed as documented. Discharge Plan Discharge Clinical Impression: Chronic pancreatitis, Abdominal pain, Nausea Patient Disposition: Admitted As Inpatient Prescriptions: No Action Linzess 145 mcg capsule 145 mcg PO QAM Qty: 90 1RF alprazolam [Xanax] 1 mg tablet 1 mg PO ONCE 1 Days Qty: 1 0RF Rx Instructions: Take 1 hour before MRI scan pioglitazone 15 mg tablet 1 tab PO BID tizanidine 4 mg tablet 1 tab PO TID sumatriptan succinate 100 mg tablet 100 mg PO DAILY PRN (Reason: Migraine Headache) nortriptyline 25 mg capsule 25 cap PO BEDTIME zolpidem 10 mg tablet 10 tab PO BEDTIME PRN (Reason: Insomnia) fluoxetine 20 mg capsule 1 cap PO DAILY rosuvastatin 40 mg tablet 1 tab PO DAILY oxycodone 10 mg tablet 1 tab PO QID PRN (Reason: Pain) fenofibrate 54 mg tablet 2 tab PO DAILY ondansetron 4 mg tablet,disintegrating 1 tab PO Q8H PRN (Reason: Nausea And Vomiting) cholecalciferol (vitamin D3) 25 mcg (1,000 unit) capsule 25 mcg PO DAILY docusate sodium 100 mg capsule 100 mg PO BID PRN (Reason: Constipation) Creon 12,000-38,000 -60,000 unit capsule,delayed release(DR/EC) 3 cap PO TID 90 Days Qty: 810 2RF Rx Instructions: 1 capsule with the first bite and and two capsules in between meals And 1 capsule with each snack omeprazole 40 mg capsule,delayed release(DR/EC) 40 mg PO BID 60 Days Qty: 120 1RF Trulicity 3 mg/0.5 mL pen injector 4.5 mg subcut QWEEK Print Language: Upper Sorbian
--- NOTE | 2024-10-09 18:40 | MHC.EDTECH ---
EkG was taken and read by the ED provider and blood and urine completed and send to the lab. He resting quietly in his bed within the call oneal on his reach.
[2024-10-09 18:41] LABS: MANUAL DIFF FLAG NO
--- OUTSIDE RECORDS SUMMARY | 2024-10-09 18:51 | XMS_ITS | Data Portability ---
Author Organization [facility], [facility] Address [address] [place] [address] Care Team Providers Care Plastics Spreading Machine Operator Name Role Phone BHUPENDRA MARROQUIN Stamp Pad Finisher [phone] IMMANUEL KRISHNA Stamp Pad Finisher Unavailable TARAN SANCHEZ Primary Care Provider PARKER VALDEZ Electroplater Helper Assessment Encounter Date Assessment Date Assessment LastModified [...] (if OK with GI)? 05/15: Called MICH Valdez ([employer]) re: incretin. LM with service. [...] HbA1c (hemog lobin A1c), blood 2023 024 [facility], [address] [place] [address], [id number], 10/28/2023 15:50:09 microa lbumin /creat inine, ratio panel, urine 2023 024 [facility], [address] [place] [address], [id number], 10/28/2023 16:33:30 lipid panel, serum 2023 024 [facility], [address] [place] [address], [id number], 10/28/2023 16:03:20 CMP, serum or plasma 2023 024 [facility], [address] [place] [address], [id number], 11/02/2023 11:16:49 HbA1c (hemog lobin A1c), blood 2023 024 [facility], [address] [place] [address], [id number], 02/11/2024 14:19:11 lipid panel, serum 2023 024 [facility], [address] [place] [address], [id number], 02/11/2024 15:40:08 microa lbumin /creat inine, ratio panel, urine 2023 024 [facility], [address] [place] [address], [id number], 02/14/2024 10:11:33 CMP, serum or plasma 2023 024 [facility], [address] [place] [address], [id number], 02/11/2024 15:40:07 HbA1c (hemog lobin A1c), blood 2023 024 [facility], [address] [place] [address], [id number], 05/19/2024 15:46:46 CMP, serum or plasma 2023 025 [facility], [address] [place] [address], [id number], 08/24/2024 16:01:55 lipid panel, serum 2023 025 [facility], [address] [place] [address], [id number], 08/24/2024 15:53:20 microa lbumin /creat inine, ratio panel, urine 2023 [email or web address] [address] [place], [address], 09/11/2024 13:09:36 HbA1c (hemog lobin A1c), blood 2023 025 [facility], [address] [place], [address], 08/24/2024 14:12:11 Referral None record ed. 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 Please evalua te and compar e to previo us study. 2023 024 [email or web address] [facility], [address] [place], [address], 04/05/2024 13:19:02 Surgeries None record ed. Imaging None record ed. Medication Orders Trulic ity 4.5 mg/0.5 mL subcut aneous pen inject or 2023 024 [id number], [address] [place], [address], 04/05/2024 13:12:47 Trulic ity 3 mg/0.5 mL subcut aneous pen inject or 2023 024 [facility], [address] [place], [address], 08/02/2024 12:03:07 fenofi brate 54 mg tablet 2023 024 ana guaman [id number], [address] [facility] [place], [address], 10/28/2023 15:11:58 Accu-C hek Aby Plus test strips 2023 024 ana guaman [id number], [address] [place], [id number], 10/28/2023 15:11:58 fenofi brate 120 mg tablet 2023 024 [email or web address] [id number], [address] [facility] [place], [address], 10/28/2023 13:30:14 Trulic ity 1.5 mg/0.5 mL subcut aneous pen inject or 2023 024 [email or web address] [id number], [address] [facility] [place], [address], 04/05/2024 12:17:27 Patient TargetsNo targets recorded. Patient Instructions Encounter Date Encounter Id Patient Instructions Last Modified By Organization Details Last Modified Time 09/15/2023 [id number] - Stay on same medications for now. [...] 09/29/22- src Not available 04/06/2023 09:53:26 12/07/2023 [id number] 1.) - Increase Trulicity to 3 mg weekly after completing rest of your supply of 1.5 mg weekly. 2.) - Come back for nurse/doctor visit after taking 3 mg x at least 4 weeks - January 2024. 3)- Lab one week prior to RN/MD appt [email or web address] Not available 12/07/2023 19:00:24 ENDO RN visit in January 2024. [email or web address] Not available 12/07/2023 19:00:32 04/05/2024 [id number] - Stay on same medications for now. [...] furth er confi rmati on Not Available [address], [address], 08/27/2023 12:53:26 08/27/1908/27/2023 HGB A1C estimated average glucose 185.8 mg/dL Not Available [address], [address], 08/27/2023 12:53:26 08/27/1908/27/2023 COMP. METAB OLIC PANEL glucose 144 mg/dL 70-100 high Not Available [address], [address], 08/27/2023 14:13:32 08/27/19 24 08/27/2023 COMP. METAB OLIC PANEL BUN 13 mg/dL 7-18 Not Available [address], [address], 08/27/2023 14:13:32 08/27/19 24 08/27/2023 COMP. METAB OLIC PANEL creatinine 1.3 mg/dL 0.8-1. 3 Not Available [address], [address], 08/27/2023 14:13:32 08/27/19 24 08/27/2023 COMP. METAB OLIC PANEL B/C 10.0 ratio Not Available [address], [address], 08/27/2023 14:13:32 08/27/19 24 08/27/2023 COMP. METAB [...] be used in pregn raine. Not Available [address], [address], 08/27/2023 14:13:32 08/27/19 24 08/27/2023 COMP. METAB OLIC PANEL sodium 143 mmol/ L 136-14 5 Not Available [address], [address], 08/27/2023 14:13:32 08/27/19 24 08/27/2023 COMP. METAB OLIC PANEL potassium 4.0 mmol/ L 3.5-5. 1 Not Available [address], [address], 08/27/2023 14:13:32 08/27/19 24 08/27/2023 COMP. METAB OLIC PANEL chloride 104 mmol/ L 96-107 Not Available [address], [address], 08/27/2023 14:13:32 08/27/19 24 08/27/2023 COMP. METAB OLIC PANEL anion gap 10.2 5.0-15 .0 Not Available [address], [address], 08/27/2023 14:13:32 08/27/19 24 08/27/2023 COMP. METAB OLIC PANEL CO2 29 mmol/ L 21-32 Not Available [address], [address], 08/27/2023 14:13:32 08/27/19 24 08/27/2023 COMP. METAB OLIC PANEL calcium 9.8 mg/dL 8.5-10 .3 Not Available [address], [address], 08/27/2023 14:13:32 08/27/19 24 08/27/2023 COMP. METAB OLIC PANEL total protein 8.1 g/dL 6.4-8. 2 Not Available [address], [address], 08/27/2023 14:13:32 08/27/19 24 08/27/2023 COMP. METAB OLIC PANEL albumin 4.2 g/dL 3.4-5. 0 Not Available [address], [address], 08/27/2023 14:13:32 08/27/19 24 08/27/2023 COMP. METAB OLIC PANEL globulin 3.9 g/dL Not Available [address], [address], 08/27/2023 14:13:32 08/27/19 24 08/27/2023 COMP. METAB OLIC PANEL A/G 1.1 ratio 0.8-2. 0 Not Available [address], [address], 08/27/2023 14:13:32 08/27/19 24 08/27/2023 COMP. METAB OLIC PANEL total bilirubin 0.30 mg/dL 0.00-1 .00 Not Available [address], 85[address], 08/27/2023 14:13:32 08/27/19 24 08/27/2023 COMP. METAB OLIC PANEL AST 22 U/L 0-37 Not Available [address], [address], 08/27/2023 14:13:32 08/27/19 24 08/27/2023 COMP. METAB OLIC PANEL ALT 29 U/L 6-63 Not Available [address], [address], 08/27/2023 14:13:32 08/27/19 24 08/27/2023 COMP. METAB OLIC PANEL alk. phos. 67 U/L 50-136 Not Available [address], [address], 08/27/2023 14:13:32 08/27/19 24 08/27/2023 LIPID PANEL cholesterol 112 mg/dL <200 mg/dl Yogesh able 200-2 39 mg/dl Borde rline High >240 mg/dl High Not Available [address], [address], 08/27/2023 14:13:33 08/27/19 24 08/27/2023 LIPID PANEL triglyceride s 214 mg/dL <150 mg/dL Mary l 150-1 99 mg/dL Borde rline High 200-4 99 mg/dL High >500 mg/dL Very High Not Available [address], 06[address], 08/27/2023 14:13:33 08/27/19 24 08/27/2023 LIPID PANEL direct HDL 47 mg/dL <40 mg/dl - Major Risk for CHD >60 mg/dl - Negat ricardo Risk for CHD Not Available [address], [address], 08/27/2023 14:13:33 08/27/19 24 08/27/2023 LDL - CALCU LATED LDL - calculated 22.2 RISK CATEG ORY LDL GOAL _ CHD or CHD Risk Equiv alent s <100 mg/dl (10-y ear risk >20%) 2+ Risk Facto rs <130 mg/dl (10-y ear risk <= 20%) 0-1 Risk Facto r? <160 mg/dl ? Almos t all peopl e with 0-1 risk facto r have a 10 year risk <10%, thus 10 year risk asses ment in peopl e with 0-1 risk facto r is not neces devora. Not Available [address], [address], 08/27/2023 14:13:34 08/27/19 24 08/27/2023 MICRO ALBUM IN/CR EATIN INE RATIO PANEL , URINE microalbumin 8.1 mg/L 1.3-20 .0 Not Available [address], [address], 08/27/2023 14:33:16 08/27/19 24 08/27/2023 MICRO ALBUM IN/CR EATIN INE RATIO PANEL , URINE creatinine urine 169.2 mg/dL 30.0-1 25.0 high Not Available [address], 89758, 08/27/2023 14:33:16 08/27/19 24 08/27/2023 MICRO ALBUM IN/CR EATIN INE RATIO PANEL , URINE microalb/cre at ratio 4.8 mg/g_ creat 0.0-29 .0 Not Available [address], [address], 08/27/2023 14:33:16 10/28/19 24 10/28/2023 HGB A1C [...] furth er confi rmati on Not Available [address], [address], 10/28/2023 15:50:09 10/28/19 24 10/28/2023 HGB A1C estimated average glucose 191.5 mg/dL Not Available [address], [address], 10/28/2023 15:50:09 10/28/19 24 10/28/2023 LIPID PANEL cholesterol 117 mg/dL <200 mg/dl Yogesh able 200-2 39 mg/dl Borde rline High >240 mg/dl High Not Available [address], 477[address], 10/28/2023 16:03:20 10/28/19 24 10/28/2023 LIPID PANEL triglyceride s 177 mg/dL <150 mg/dL Mary l 150-1 99 mg/dL Borde rline High 200-4 99 mg/dL High >500 mg/dL Very High Not Available [address], [address], 10/28/2023 16:03:20 10/28/19 24 10/28/2023 LIPID PANEL direct HDL 51 mg/dL <40 mg/dl - Major Risk for CHD >60 mg/dl - Negat ricardo Risk for CHD Not Available [address], [address], 10/28/2023 16:03:20 03/07/20 24 10/28/2023 LDL - CALCU LATED LDL - calculated 30.6 RISK CATEG ORY LDL GOAL _ CHD or CHD Risk Equiv alent s <100 mg/dl (10-y ear risk >20%) 2+ Risk Facto rs <130 mg/dl (10-y ear risk <= 20%) 0-1 Risk Facto r? <160 mg/dl ? Almos t all peopl e with 0-1 risk facto r have a 10 year risk <10%, thus 10 year risk asses ment in peopl e with 0-1 risk facto r is not garretwes devora. Not Available [address], [address], 10/28/2023 16:03:21 10/28/19 24 10/28/2023 MICRO ALBUM IN/CR EATIN INE RATIO PANEL , URINE microalbumin 15.6 mg/L 1.3-20 .0 Not Available [address], [address], 10/28/2023 16:33:30 10/28/19 24 10/28/2023 MICRO ALBUM IN/CR EATIN INE RATIO PANEL , URINE creatinine urine 214.0 mg/dL 30.0-1 25.0 high Not Available [address], 06115, 10/28/2023 16:33:30 10/28/19 24 10/28/2023 MICRO ALBUM IN/CR EATIN INE RATIO PANEL , URINE microalb/cre at ratio 7.3 mg/g_ creat 0.0-29 .0 Not Available [address], [address], 10/28/2023 16:33:30 10/28/19 24 11/02/2023 COMP. METAB OLIC PANEL glucose 167 mg/dL 70-100 high Not Available [address], [address]81, 11/02/2023 11:16:49 10/28/19 24 11/02/2023 COMP. METAB OLIC PANEL BUN 10 mg/dL 7-18 Not Available [address], [address]73, 11/02/2023 11:16:49 10/28/19 24 11/02/2023 COMP. METAB OLIC PANEL creatinine 1.2 mg/dL 0.8-1. 3 Not Available [address], [address]72, 11/02/2023 11:16:49 10/28/19 24 11/02/2023 COMP. METAB OLIC PANEL B/C 8.3 ratio Not Available [address], 240[address], 11/02/2023 11:16:49 10/28/19 24 11/02/2023 COMP. METAB [...] be used in pregn raine. Not Available [address], [address], 11/02/2023 11:16:49 10/28/19 24 11/02/2023 COMP. METAB OLIC PANEL sodium 143 mmol/ L 136-14 5 Not Available [address], [address], 11/02/2023 11:16:49 10/28/19 24 11/02/2023 COMP. METAB OLIC PANEL potassium 4.0 mmol/ L 3.5-5. 1 Not Available [address], 7[address], 11/02/2023 11:16:49 10/28/19 24 11/02/2023 COMP. METAB OLIC PANEL chloride 103 mmol/ L 96-107 Not Available [address], [address]56, 11/02/2023 11:16:49 10/28/19 24 11/02/2023 COMP. METAB OLIC PANEL anion gap 13.5 5.0-15 .0 Not Available [address], 18858, 11/02/2023 11:16:49 10/28/19 24 11/02/2023 COMP. METAB OLIC PANEL CO2 27 mmol/ L 21-32 Not Available [address], [address]77, 11/02/2023 11:16:49 10/28/19 24 11/02/2023 COMP. METAB OLIC PANEL calcium 10.1 mg/dL 8.5-10 .3 Not Available [address], 14063, 11/02/2023 11:16:49 10/28/19 24 11/02/2023 COMP. METAB OLIC PANEL total protein 8.2 g/dL 6.4-8. 2 Not Available [address], 90267, 11/02/2023 11:16:49 10/28/19 24 11/02/2023 COMP. METAB OLIC PANEL albumin 4.4 g/dL 3.4-5. 0 Not Available [address], 26269, 11/02/2023 11:16:49 10/28/19 24 11/02/2023 COMP. METAB OLIC PANEL globulin 3.8 g/dL Not Available [address], [address]76, 11/02/2023 11:16:49 10/28/19 24 11/02/2023 COMP. METAB OLIC PANEL A/G 1.2 ratio 0.8-2. 0 Not Available [address], [address]390, 11/02/2023 11:16:49 10/28/19 24 11/02/2023 COMP. METAB OLIC PANEL total bilirubin 0.30 mg/dL 0.00-1 .00 Not Available [address], [address]27, 11/02/2023 11:16:49 10/28/19 24 11/02/2023 COMP. METAB OLIC PANEL AST 30 U/L 0-37 Not Available [address], 52865, 11/02/2023 11:16:49 10/28/19 24 11/02/2023 COMP. METAB OLIC PANEL ALT 32 U/L 6-63 Not Available [address], [address], 11/02/2023 11:16:49 10/28/19 24 11/02/2023 COMP. METAB OLIC PANEL alk. phos. 96 U/L 50-136 Not Available [address], [address]26, 11/02/2023 11:16:49 02/11/20 24 02/11/2024 HGB A1C [...] furth er confi rmati on Not Available [address], [address], 02/11/2024 14:19:10 02/11/20 24 02/11/2024 HGB A1C estimated average glucose 177.2 mg/dL Not Available [address], 60581, 02/11/2024 14:19:10 02/11/20 24 02/11/2024 COMP. METAB OLIC PANEL glucose 131 mg/dL 70-100 high Not Available [address], [address], 02/11/2024 15:40:07 02/11/20 24 02/11/2024 COMP. METAB OLIC PANEL BUN 13 mg/dL 7-18 Not Available [address], 29501, 02/11/2024 15:40:07 02/11/20 24 02/11/2024 COMP. METAB OLIC PANEL creatinine 1.3 mg/dL 0.8-1. 3 Not Available [address], 15575, 02/11/2024 15:40:07 02/11/20 24 02/11/2024 COMP. METAB OLIC PANEL B/C 10.0 ratio Not Available [address], 39385, 02/11/2024 15:40:07 02/11/20 24 02/11/2024 COMP. METAB [...] be used in pregn raine. Not Available [address], [address], 02/11/2024 15:40:07 02/11/20 24 02/11/2024 COMP. METAB OLIC PANEL sodium 143 mmol/ L 136-14 5 Not Available [address], 9[address]97, 02/11/2024 15:40:07 02/11/20 24 02/11/2024 COMP. METAB OLIC PANEL potassium 4.1 mmol/ L 3.5-5. 1 Not Available [address], [address], 02/11/2024 15:40:07 02/11/20 24 02/11/2024 COMP. METAB OLIC PANEL chloride 104 mmol/ L 96-107 Not Available [address], 17040, 02/11/2024 15:40:07 02/11/20 24 02/11/2024 COMP. METAB OLIC PANEL anion gap 10.2 5.0-15 .0 Not Available [address], 10638, 02/11/2024 15:40:07 02/11/20 24 02/11/2024 COMP. METAB OLIC PANEL CO2 29 mmol/ L 21-32 Not Available [address], 03468, 02/11/2024 15:40:07 02/11/20 24 02/11/2024 COMP. METAB OLIC PANEL calcium 10.0 mg/dL 8.5-10 .3 Not Available [address], 35353, 02/11/2024 15:40:07 02/11/20 24 02/11/2024 COMP. METAB OLIC PANEL total protein 8.3 g/dL 6.4-8. 2 high Not Available [address], 56382, 02/11/2024 15:40:07 02/11/20 24 02/11/2024 COMP. METAB OLIC PANEL albumin 4.4 g/dL 3.4-5. 0 Not Available [address], 47602, 02/11/2024 15:40:07 02/11/20 24 02/11/2024 COMP. METAB OLIC PANEL globulin 3.9 g/dL Not Available [address], 41476, 02/11/2024 15:40:07 02/11/20 24 02/11/2024 COMP. METAB OLIC PANEL A/G 1.1 ratio 0.8-2. 0 Not Available [address], 15795, 02/11/2024 15:40:07 02/11/20 24 02/11/2024 COMP. METAB OLIC PANEL total bilirubin 0.30 mg/dL 0.00-1 .00 Not Available [address], 66649, 02/11/2024 15:40:07 02/11/20 24 02/11/2024 COMP. METAB OLIC PANEL AST 27 U/L 0-37 Not Available [address], 10454, 02/11/2024 15:40:07 02/11/20 24 02/11/2024 COMP. METAB OLIC PANEL ALT 32 U/L 6-63 Not Available [address], 14936, 02/11/2024 15:40:07 02/11/20 24 02/11/2024 COMP. METAB OLIC PANEL alk. phos. 68 U/L 50-136 Not Available [address], 17317, 02/11/2024 15:40:07 02/11/20 24 02/11/2024 LIPID PANEL cholesterol 109 mg/dL <200 mg/dl Yogesh able 200-2 39 mg/dl Borde rline High >240 mg/dl High Not Available [address], 48195, 02/11/2024 15:40:08 02/11/20 24 02/11/2024 LIPID PANEL triglyceride s 123 mg/dL <150 mg/dL Mary l 150-1 99 mg/dL Borde rline High 200-4 99 mg/dL High >500 mg/dL Very High Not Available [address], [address], 02/11/2024 15:40:08 02/11/20 24 02/11/2024 LIPID PANEL direct HDL 52 mg/dL <40 mg/dl - Major Risk for CHD >60 mg/dl - Negat ricardo Risk for CHD Not Available [address], 30[address], 02/11/2024 15:40:08 02/11/20 24 02/11/2024 LDL - CALCU LATED LDL - calculated 32.4 RISK CATEG ORY LDL GOAL _ CHD or CHD Risk Equiv alent s <100 mg/dl (10-y ear risk >20%) 2+ Risk Facto rs <130 mg/dl (10-y ear risk <= 20%) 0-1 Risk Facto r? <160 mg/dl ? Almos t all peopl e with 0-1 risk facto r have a 10 year risk <10%, thus 10 year risk asses ment in peopl e with 0-1 risk facto r is not franny lozoya. Not Available [address], [address], 02/11/2024 15:40:08 02/11/20 24 02/14/2024 MICRO ALBUM IN/CR EATIN INE RATIO PANEL , URINE microalbumin 17.3 mg/L 1.3-20 .0 Not Available [address], [address]606, 02/14/2024 10:11:33 02/11/20 24 02/14/2024 MICRO ALBUM IN/CR EATIN INE RATIO PANEL , URINE creatinine urine 259.8 mg/dL 30.0-1 25.0 high Not Available [address], 04051, 02/14/2024 10:11:33 02/11/20 24 02/14/2024 MICRO ALBUM IN/CR EATIN INE RATIO PANEL , URINE microalb/cre at ratio 6.7 mg/g_ creat 0.0-29 .0 Not Available [address], 28652, 02/14/2024 10:11:33 05/19/20 24 05/19/2024 HGB A1C [...] furth er confi rmati on Not Available [address], 9[address]17, 05/19/2024 15:46:46 05/19/20 24 05/19/2024 HGB A1C estimated average glucose 171.4 mg/dL Not Available [address], 11044, 05/19/2024 15:46:46 08/24/1908/24/2024 HGB A1C hemoglobin A1C [...] furth er confi rmati on Not Available [address], [address]241, 08/24/2024 14:12:11 08/24/1908/24/2024 HGB A1C estimated average glucose 159.9 mg/dL Not Available [address], 85611, 08/24/2024 14:12:11 08/24/1908/24/2024 LIPID PANEL cholesterol 139 mg/dL <200 mg/dl Yogesh able 200-2 39 mg/dl Borde rline High >240 mg/dl High Not Available [address], 05648, 08/24/2024 15:53:20 08/24/1908/24/2024 LIPID PANEL triglyceride s 145 mg/dL <150 mg/dL Mary l 150-1 99 mg/dL Borde rline High 200-4 99 mg/dL High >500 mg/dL Very High Not Available [address], 21020, 08/24/2024 15:53:20 08/24/1908/24/2024 LIPID PANEL direct HDL 70 mg/dL <40 mg/dl - Major Risk for CHD >60 mg/dl - Negat ricardo Risk for CHD Not Available [address], 34577, 08/24/2024 15:53:20 08/24/19 25 08/24/2024 LDL - CALCU LATED LDL - calculated 40 RISK CATEG ORY LDL GOAL _ CHD or CHD Risk Equiv alent s <100 mg/dl (10-y ear risk >20%) 2+ Risk Facto rs <130 mg/dl (10-y ear risk <= 20%) 0-1 Risk Facto r? <160 mg/dl ? Almos t all peopl e with 0-1 risk facto r have a 10 year risk <10%, thus 10 year risk asses ment in peopl e with 0-1 risk facto r is not franny lozoya. Not Available [address], 13929, 08/24/2024 15:53:21 08/24/19 25 08/24/2024 COMP. METAB OLIC PANEL glucose 108 mg/dL 70-100 high Not Available [address], 52698, 08/24/2024 16:01:55 08/24/19 25 08/24/2024 COMP. METAB OLIC PANEL BUN 20 mg/dL 7-18 high Not Available [address], 80016, 08/24/2024 16:01:55 08/24/19 25 08/24/2024 COMP. METAB OLIC PANEL creatinine 1.5 mg/dL 0.8-1. 3 high Not Available [address], 88798, 08/24/2024 16:01:55 08/24/19 25 08/24/2024 COMP. METAB OLIC PANEL B/C 13.3 ratio Not Available [address], 77209, 08/24/2024 16:01:55 08/24/19 25 08/24/2024 COMP. METAB [...] be used in pregn raine. Not Available [address], [address], 08/24/2024 16:01:55 08/24/19 25 08/24/2024 COMP. METAB OLIC PANEL sodium 142 mmol/ L 136-14 5 Not Available [address], 06293, 08/24/2024 16:01:55 08/24/19 25 08/24/2024 COMP. METAB OLIC PANEL potassium 4.6 mmol/ L 3.5-5. 1 Not Available [address], 94641, 08/24/2024 16:01:55 08/24/19 25 08/24/2024 COMP. METAB OLIC PANEL chloride 101 mmol/ L 96-107 Not Available [address], 21676, 08/24/2024 16:01:55 08/24/19 25 08/24/2024 COMP. METAB OLIC PANEL anion gap 15.9 5.0-15 .0 high Not Available [address], 24224, 08/24/2024 16:01:55 08/24/19 25 08/24/2024 COMP. METAB OLIC PANEL CO2 25 mmol/ L 21-32 Not Available [address], 98595, 08/24/2024 16:01:55 08/24/19 25 08/24/2024 COMP. METAB OLIC PANEL calcium 10.9 mg/dL 8.5-10 .3 high ANA LILIA=V erifi ed by Shwetha cedillo Not Available [address], [address]60, 08/24/2024 16:01:55 08/24/19 25 08/24/2024 COMP. METAB OLIC PANEL total protein 8.8 g/dL 6.4-8. 2 high Not Available [address], 64223, 08/24/2024 16:01:55 08/24/19 25 08/24/2024 COMP. METAB OLIC PANEL albumin 4.6 g/dL 3.4-5. 0 Not Available [address], 42652, 08/24/2024 16:01:55 08/24/19 25 08/24/2024 COMP. METAB OLIC PANEL globulin 4.2 g/dL Not Available [address], 48999, 08/24/2024 16:01:55 08/24/19 25 08/24/2024 COMP. METAB OLIC PANEL A/G 1.1 ratio 0.8-2. 0 Not Available [address], 93578, 08/24/2024 16:01:55 08/24/19 25 08/24/2024 COMP. METAB OLIC PANEL total bilirubin 0.60 mg/dL 0.00-1 .00 Not Available [address], 98795, 08/24/2024 16:01:55 08/24/19 25 08/24/2024 COMP. METAB OLIC PANEL AST 29 U/L 0-37 Not Available [address], 98183, 08/24/2024 16:01:55 08/24/19 25 08/24/2024 COMP. METAB OLIC PANEL ALT 27 U/L 6-63 Not Available [address], 80215, 08/24/2024 16:01:55 08/24/19 25 08/24/2024 COMP. METAB OLIC PANEL alk. phos. 54 U/L 50-136 Not Available [address], 40064, 08/24/2024 16:01:55 08/24/19 25 08/30/2024 ALBUM IN, RANDO M URINE W/CRE ATINI NE creatinine, random urine 243 mg/dL 20-320 normal Not Available [facility] [address], [address], 08/30/2024 18:13:36 08/24/19 25 08/30/2024 ALBUM IN, RANDO M URINE W/CRE ATINI NE albumin, urine 1.8 mg/dL normal Refer ence Range Not estab lishe d Not Available [facility] [address], [address], 08/30/2024 18:13:36 08/24/19 25 08/30/2024 ALBUM IN, [...] a diagn ostic categ ory. Not Available [facility] [place] [facility] [address] [place], [place], [address], 08/30/2024 18:13:36 04/11/20 24 04/11/2024 US liver [...] RECOMM ENDATI ON: Consid er furthe r cherry g for confir mation of compen sated [...] RT kid - WNL, no hydro IMMANUEL Kb CORDOVA N IMMANUEL CORDOVA N [facility] [address] [place] [address], [id number], 04/28/2024 18:24:04 04/11/20 24 04/11/2024 US, liver No observ ation record ed. [email or web address] [address], [address], 04/28/2024 16:26:08 Result Notes None recorded. Problems Name Problem SNOMED Code Status Onset Date Resolution Date Notes Provider Name and Address Organization Details Recorded Time Pure hypergly ceridemi a 183439337 Active 2007 Not Available [facility] 4 05:31:29 Gastroes ophageal reflux disease 892978865 Active Not Available [facility] 4 05:31:29 Abdomina l pain 78743309 Completed 07/12/2013 Not Available [facility] 3 02:01:24 Right upper quadrant pain 974537730 Completed 200807/12/2013 Not Available [facility] 3 02:03:18 Pure hypercho lesterol emia 753002896 Completed 200706/02/2021 Removal Reason: really is just TG Immanuel Krishna MD [address] [place] [address], [phone] , [facility] [place] 16:25:08 Prediabe benton 250491254 Completed 202006/02/2021 Removal Reason: transiti on to DMT2 Immanuel Krishna MD [address] [place] [address], [phone] , [facility] [place] 16:25:20 Non-alco holic fatty liver 804637156 Active 2020 Not Available [facility] 4 05:31:29 History of pancreat itis 91305510959 107 Active 2020 Not Available [facility] 4 05:31:29 Type 2 diabetes mellitus without complica tion 741429678 Active 2022 coded 11/19/21 Virtual Visit Not Available [facility] 4 05:31:29 Uncontro lled type 2 diabetes mellitus 352196173 Active 2022 Not Available [facility] 4 05:31:29 Notes:Some problems listed i n Documents: #[id number], #[id number] could not be added to this patient's chart. Please review these documents and add these problems to the patient's chart manually as needed. Problem Notes None recorded. Procedures Surgical History Date Name Laterality Status Provider Name and Address Organization Details Recorded Time 06/10/20 23 Insulin Teaching completed Arlene Thomson RN [facility] 06/10/2023 15:23:46 02/13/20 21 cholecystectomy completed Arlene Thomson RN [facility] 06/02/2021 15:20:06 10/05/19 20 Tassoni - EGD completed Sharad Horn MD [address] [place] [address], [id number], [place] [facility] 10/05/2019 12:39:37 Imaging Results Imaging Date Name Status LastModified by Organization Details LastModified Time 04/11/2024 US liver with elastography completed [facility] [address] [place], [address], 04/28/2024 18:24:04 04/11/2024 [facility] [address] [place], [address], 04/28/2024 16:26:08 Procedure Notes None recorded. Medical Equipment None Reported. Allergies Allergen ID Allergen Name Allergen Category Reaction Reaction Severity Criticality Documentation Date Start Date Code Code System Note Provider Name and Address Organization Details Recorded Time 399446 gabapenti n medicatio n headache Not available Not available 04/06/2012 53936 [facility] 14:52:44 119259 Lyrica medicatio n Not available Not available Not available 04/06/2012 27325 1 RxNorm tight ness in throa t, not swell ing [facility] 14:52:44 8288 Pepcid medicatio n rash Not available Not available 11/29/2008 89173 8 RxNorm GI upset Not Available [facility] 1 06:05:20 8289 Advil medicatio n nausea vomiting Not available Not available Not available 11/29/2008 23226 0 RxNorm Not Available [facility] 1 06:05:20 Medications Name Sig Start Date [...] completed Not Available Not Available Not Available [place] Lancets 33 gauge 02/06 completed Not Available [...] Updated DateTime 4 164.47 cm 30 kg/m2 48311.7 5 g 98 /min 118 mm[Hg] 74 mm[Hg] Naila Burch LPN [facility] 4 12:29:06 Date Recorded Body height Body mass index (BMI) Body weight Heart rate Systolic blood pressure Diastolic blood pressure Provider Name and Address Organization Details Last Updated DateTime 164.47 cm 29.4 kg/m2 95275.1 g 93 /min 120 mm[Hg] 78 mm[Hg] Alicja Urena LPN [facility] 12:21:27 Date Recorded Body height Body mass index (BMI) Body weight Provider Name and Address Organization Details Last Updated DateTime 08/03/2024 164.47 cm 27.2 kg/m2 19035.[address] [facility] 08/03/2024 10:22:22 Social History Question Answer Notes LastModified by Organizat ion Details LastModified Time Tobacco Smoking Status Never Smoker denies Not Available [facility] 01/15/2011 02:08:11 What Is Your Level Of [...] healthy generally, one with asthma. MGM of [place] at age 60's 11/08- Family OK. 06/10- Sisters healthy. No kids. 06/12: family OK. Mom alive in [place] (76). 11/11: Family OK. 10/15: No changes. Medical History Condition Response Hyperlipidemia Y Immunizations Vaccine Type Date Status Note Provider Nam e and Address Organization Details Recorded Time COVID-19, mRNA, LNP-S, PF, 30 mcg/0.3 mL dose 12/25/2020 completed Not Available [facility] 4 05:31:29 COVID-19, mRNA, LNP-S, PF, 30 mcg/0.3 mL dose 07/09/2021 completed Not Available [facility] 4 05:31:29 COVID-19, mRNA, LNP-S, bivalent, PF, 30 mcg/0.3 mL dose 06/24/2022 completed Not Available [facility] 4 05:31:29 Past Encounters Encounter ID Performer Location Encounter Start Date Encounter Closed Date Diagnosis/Indication Diagnosis SNOMED-CT Code Diagnosis ICD10 Code Diagnosis Note [id number] [facility], [address] [place] [address] 08/01/2008 07:59:32 09/12/2008 02:02:29 [id number] LAB - [address] [place] [address] 08/01/2008 09:36:52 08/01/2008 09:37:01 [id number] [facility], [address] [place] [address] 09/06/2008 09:44:29 09/12/2008 02:02:29 [id number] [facility], [address] [place] [address] 11/29/2008 13:02:54 12/06/2008 10:58:31 [id number] [facility], [address] [place] [address] 01/04/2009 11:04:31 01/17/2009 10:41:04 [id number] [facility]ocr[facility] logy, [address] [place] [address] 04/10/2009 10:13:41 04/10/2009 11:21:46 [id number] LAB - [facility] [place] [address] 04/10/2009 10:55:35 04/10/2009 10:55:41 [id number] Endocrino logy, [facility] VIVIANA Montalvo02[address] 1 07/03/2009 08:02:14 07/08/2009 09:17:02 [id number] Endocrino logy, [facility] [place] [address] 09/06/2009 10:43:36 09/06/2009 14:16:58 [id number] Endocrino logy, [facility] [place] [address] 11/08/2009 10:42:53 11/08/2009 12:44:26 [id number] Endocrino logy, [facility] Ruba Yates VIVIANA [id number] 1 04/23/2010 09:50:35 04/23/2010 11:10:07 [id number] Endocrino logy, [facility] [place] [address] 03/05/2011 10:44:54 03/05/2011 11:57:46 [id number] Endocrino logy, [facility] [place] [address] 06/04/2011 11:01:31 06/04/2011 12:36:05 [id number] Endocrino logy, [facility] [place] [address] 09/30/2011 14:47:07 09/30/2011 15:24:03 [id number] Endocrino logy, [facility] [place] [address] 04/06/2012 14:13:03 04/06/2012 15:50:32 [id number] Bhupendra Marroquin PA-C [facility]ocr[facility], [facility] [place] [address] 06/20/2012 10:40:38 06/20/2012 11:56:35 [id number] Simona Santoyo Endocrino logy, [facility] [place] [address] 12/22/2012 08:45:34 12/22/2012 09:34:51 [id number] [facility] [place] [address] 03/03/2013 13:15:39 03/03/2013 14:51:58 [id number] Endocrino logy, [address] [address] 06/28/2013 09:11:53 06/28/2013 09:57:10 Pure hyperglyceridemia [id number] Pt TG 800's but he admits he [...] Aug 2011. Pt had testing Dec at [facility] as well and is to have f/u studies yearly with them. Hx- Pt on crestor because statin, tricor and lopid all have not worked for patient (see previous records). Niacin caused burning pain and flushing even with asa and being taken at night. Never tried with pectin. [id number] Bhupendra Marroquin PA-C [facility], [address] [address] 09/28/2013 10:14:45 09/28/2013 11:21:39 Pure hyperglyceridemia [id number] hx==Pancre atic mass stable on MRI of Aug 2011. Pt had testing Dec at [facility] as well and is to have f/u studies yearly with them. Hx- Pt on crestor because statin, tricor and lopid all have not worked for patient (see previous records). Niacin caused burning pain and flushing even with asa and being taken at night. Never tried with pectin. [id number] Lety Alcala [facility], [address] [address] 01/04/2014 10:24:55 01/04/2014 11:09:12 Pure hyperglyceridemia 561503584 hx==Pancre atic mass stable on MRI of Aug 2011. Pt had testing Dec at [facility] as well and is to have f/u studies yearly with them. Hx- Pt on crestor because statin, tricor and lopid all have not worked for patient (see previous records). Niacin caused burning pain and flushing even with asa and being taken at night. Never tried with pectin. [id number] Endocrino logy, [address] [address] 04/09/2014 09:59:26 04/09/2014 10:37:00 Pure hyperglyceridemia 013383080 hx==Pancre atic mass stable on MRI of Aug 2011. Pt had testing Dec at [facility] as well and is to have f/u studies yearly with them. Hx- Pt on crestor because statin, tricor and lopid all have not worked for patient (see previous records). Niacin caused burning pain and flushing even with asa and being taken at night. Never tried with pectin. [id number] Evelia Clifford [facility], [address] [address] 12/11/2014 15:05:55 12/11/2014 15:46:15 Pure hyperglyceridemia 009684533 cont crestor 40 mg and fenofibrat e [...] Aug 2011. Pt had testing Dec at [facility] as well and is to have f/u studies yearly with them. Hx- Pt on crestor because statin, tricor and lopid all have not worked for patient (see previous records). Niacin caused burning pain and flushing even with asa and being taken at night. Never tried with pectin. Palpitations [id number] Wi ll check TSH with upcoming labs [...] cancel when he had the flu. Constipation [id number] se e above. [id number] Bhupendra Marroquin PA-C [facility], [address] [address] 12/24/2015 13:38:45 12/24/2015 14:48:59 Chest pain 92418769 R07.9 SOB and racing heart concerning . [...] of CABG x4 in father. Pure hyperglyceridemia 986634299 E78.1 Cont fenfibrate 54mg take 2 tabs daily and labs again in 3 months. TG stable and LDL stable. [id number] Bhupendra Marroquin PA-C [facility], [address] [address] 01/14/2017 14:12:47 01/14/2017 15:24:44 Pure hyperglyceridemia 175005333 E78.1 Order in chart for labs and [...] mg daily. TG stable and LDL stable. [id number] Bhupendra Marroquin PA-C [facility], [address] [address] 03/01/2018 11:04:10 03/01/2018 11:51:38 Pure hyperglyceridemia 052318525 E78.21 October 2017 labs to goal. Cont fenofibrat e 54 mg- 2 tabs daily and rosuvastat in 40 mg daily. Continue to work on diet and exercise and f/u in a year with labs every 3-6 months. (can be q 6 months as long as lipids stable) If TG rise then will have him come in sooner than a year. Chronic pancreatitis 235 306823 K86.1 hx of recurrent pancreatit is with recent episode October 2017. Sees GI and has f/u May Dr. Flor. Not symptomati c today. TG stable (see above) counseled him regarding ETOH, diet and lifestyle to prevent recurrent episodes. Functional disorder of intestine 39908822 K59.9 Per pt, intestinal obstructio n/dysmotil ity in October 2017. Requesting records from [place] for chart and review. Advised pt to contact PCP about referral to different surgeon if not able to get reschedule d with original surgeon since has been changed by office twice now per pt report. He indicates he will call Dr. Lyon to see how to proceed. [id number] Bhupendra Marroquin PA-C [facility], [address] [address] 09/13/2018 10:59:09 09/13/2018 11:54:10 Pure hyperglyceridemia 399210288 E78.1 Need to find records from hospitaliz [...] up after updated labs. Chronic pancreatitis 235 955510 K86.1 hx of recurrent pancreatit is with recent episode October 2017.Now with 2 more episodes. There is no endocrine reason for pancreatit is. TG in 300's do not cause pancreatit is. Needs to be sure with GI that gallstone pancreatit is and other causes are not present. Pt needing to f/u in [place] per GI here. Pt previously saw Dr. Flor. Pt not symptomati c today Functional disorder of intestine 76537956 K59.9 Per pt, intestinal obstructio n/dysmotil ity dg in October 2017. Again no records of this have been received since diagnosis. Pt needing to have f/u with GI in [place] and needing to follow up with both PCP and GI office to see when appt from referral is scheduled. Blood gluc ose outside reference range 632518058 R73.09 reported abnormal A1c meeting criteria for [...] glucose.If IFG then would NOT use actos. [id number] Immanuel Krishna MD [facility], [address] [address] 11/18/2018 13:48:23 11/18/2018 14:40:03 Pure hyperglyceridemia 490909103 E78.1 TG consistent ly between 250-350 on max rosuvastat in and low dose fenofibrat e. Continue current regimen. Prediabetes 942787042 R7 3.03 with FBG consistent ly under [...] PCP [place] about this. History of pancreatitis 1202650142 9107 Z87.19 Doesn't seem to be primarily related to TG since he has had bouts when TG were only in 300s. Liver func tion tests outside reference range 155453885 R94.5 ast/alt= 66/48; was 85/70 in 9.18.May be c/w fatty liver.This would another reason to consider meds to improve insulin sensitivit y.Pioglita zone at low dose might be worth considerin g- would improve TG and help fatty liver. [id number] Immanuel Krishna MD [facility], [address] [address] 05/24/2019 13:35:37 05/24/2019 15:01:28 Pure hyperglyceridemia 936167126 E78.1 Started pioglitazo ne in 11/2018. TG slightly down. Will be interested to see if less fatty liver.Sugg est liver u/s soon but he is going to [place] in 07/19/19. Had MRI done 2-3 weeks ago.Hope to see copy of report for that. TG have been between 250-350 on max rosuvastat in and low dose fenofibrat e.Down to 230 on kelvin 30 mg. Hope to see further improvemen Lopez discussed importance of exercise.A gree needs to meet with RD- can be either through PCP or can be done here. Prediabetes 722842618 R7 3.03 With FBG consistent ly under [...] try 15 mg bid. History of pancreatitis 4917116917 9107 Z87.19 Doesn't seem to be primarily related to TG since he has had bouts when TG were only in 300s. Non-alcoho lic fatty liver 094076772 K76.0 ast= 43 (05/11; was 66); was [...] pioglitazo ne x 3 months consistent ly [id number] Ness Yeung RN [facility], [address] [address] 10/05/2019 11:30:52 10/05/2019 13:41:26 [id number] Immanuel Krishna MD [facility], [address] [address] 02/07/2020 14:47:33 02/08/2020 07:38:24 Pure hyperglyceridemia 207504431 E78.1 Started pioglitazo ne in 11/2018. TG slightly down. Had wanted to have him get liver u/s but he was going to [place] in 07/19/19. Had MRI done 2-3 weeks ago.Hope to see copy of report for that. None received in 2019. TG have been between 250-350 on max rosuvastat in and low dose fenofibrat e.Down to 230 on kelvin 30 mg.02/09: 156/227 (was 230) / Stable and not increasing Also discussed importance of exercise. Prediabetes 922535326 R7 3.03 With FBG consistent ly under 126 mg/dl but a1c of 6.5% (11/08). Now on pioglitazo ne. A1c had gone down to 6% but up slightly to 6.3 (02/09).Shreyas d to make sure he is not [...] 15 mg bid. Non-alcoho lic fatty liver 913101923 K76.0 AST= 36 (02/09): was 43 (05/11); [...] 3 months consistent ly History of pancreatitis 0108620944 9107 Z87.19 Doesn't seem to be primarily related to TG since he has had bouts when TG were only in 300s. [id number] Immanuel Krishna MD [facility], [address] [address] 10/01/2020 13:38:02 10/01/2020 18:29:21 Pure hyperglyceridemia 771215393 E78.1 Started pioglitazo ne in 11/2018. TG slightly down. Had wanted to have him get liver u/s but he was going to [place] in 07/19/19. TG better at 153 in 10/13. was 227 (02/09); was 230 (05/11); was 314 (11/08); No recent images studies. MRI at [facility] showed hepatic steatosis without focal pancreatic lesions (04/2019). JR López. TG have been between 250-350 on max rosuvastat in and low dose fenofibrat e. Down to 230 on kelvin 30 mg. 02/09: 156/227 (was 230) /47 / 64 Stable and not increasing Also discussed importance of exercise. Prediabetes 265698467 R7 3.03 With FBG consistent ly under [...] will update liver u/s History of pancreatitis 0447190995 9107 Z87. Doesn't seem to be primarily related to TG since he has had bouts when TG were only in 300s. Has ongoing intermitte nt pain. [id number] Immanuel Krishna MD [facility], [address] [address] 06/02/2021 15:07:09 06/02/2021 19:12:29 Pure hyperglyceridemia 770275255 E78.1 Started pioglitazo ne in 11/2018. TG slightly down. Had wanted to have him get liver u/s but he was going to [place] in 07/19/19. IV=377 (06/12); was 209 (04/12); was 153 (10/13); was 227 (02/09); was 230 (05/11); was 314 (11/08);Hig hest was 1914 in 2007. Was 877 in 07/05.TG were between 250-350 on max rosuvastat in and low dose fenofibrat e. Some improvemen t on kelvin 30 mg. but mostly stable in low 200s. Stable and not increasing Had U/S in 10/13 confirming NAFLD. MRI at [facility] showed hepatic steatosis without focal pancreatic lesions (04/2019).M RI might be better if want to see if any changes.M[facility] - [facility] Miguel in [place]. Non-alcoho lic fatty liver 864024596 K76.0 AST= 59 (06/12); was 43 (04/12); [...] help with scoring severity History of pancreatitis 9214834742 9107 Z87.19 Doesn't seem to be primarily related to TG since he has had bouts when TG were only in 300s.Much less pain since GB out (per pt) in 02/10.Now on Creon 06/12: Left message to discuss incretin use with José Miguel EPPS* Incretin has potential rare s/e of pancreatit is but since DM and Type 2 sebas betes mellitus 88333342 E11.9 New dx in 06/12- Has transition [...] to discuss with GI (José Miguel in [place]) to see what she feels his risk is for future bouts of pancreatit is. Other option would be to go with metformin for T2DM but not much benefit for NAFLD. Reached Dr. Valdez ([facility]) and discussed case.She notes that his pancreatit is was likely more biliary in etiology. Since GB out, he may well not have as high a risk as previously . In addition, she says he did not have evidence of severe chronic pancreatic damage (calcifica tions, etc.). Discussed that imaging to better stage NAFLD may be helpful in making decision. [id number] Immanuel Krishna MD [facility], [address] [address] 11/19/2021 16:39:13 11/20/2021 19:18:45 Pure hyperglyceridemia 053714637 E78.1 Started pioglitazo ne in 11/2018. TG [...] U/S in 10/13 confirming NAFLD. MRI at [facility] showed hepatic steatosis without focal pancreatic lesions (04/2019).M RI might be better if want to see if any changes. 08/12: Elastograp hy: IGR to median ratio is <15% so liver stiffness is acceptable .GI- José Miguel in [place]. Type 2 sebas betes mellitus 51451416 E11.9 Since 06/12 (a1c values 6.5 and [...] will add much. Non-alcoho lic fatty liver 824799609 K76.0 AST= 50 (11/11); was 39 (08/12); [...] liver. Previous conversati on with Dr. Valdez ([facility]) in 2020.She noted that his pancreatit [...] with scoring severityNA FLD score= 1.1 (https://w roxi.ideacts innovations.co m/health/n afld-fibro sis-score) FIB4 calculatio n: 1.85 (https://w roxi.hepatit isc..edu /page/clin ical-calcu lators/fib -4)FIB-4 score <1.45 had a negative predictive value of 90% for advanced fibrosis (includes early bridging fibrosis to cirrhosis) .FIB-4 >3.25 has a 97% specificit y and a positive predictive value of 65% for advanced fibrosis. Appears that patient is less likely to have advanced fibrosis. History of pancreatitis 6495465516 9107 Z87.19 Doesn't seem to be primarily related to TG since he has had bouts when TG were only in 300s.Much less pain since GB out (per pt) in 02/10.Now on Stephanie Valdez ([facility]) reports his pancreatit is was likely more biliary in etiology. Still, have to weigh benefits of incretin (GLP1-RA) against rare risk of pancreatit is [id number] Immanuel Krishna MD Endocr[facility], [address] [address] 09/29/2022 15:13:09 10/02/2022 09:57:01 Pure hyperglyceridemia 806923000 E78.1 Has been on rosuva 40 and [...] U/S in 10/13 confirming NAFLD. MRI at [facility] showed hepatic steatosis without focal pancreatic lesions (04/2019).M RI might be better if want to see if any changes. 08/12: Elastograp hy: IGR to median ratio is <15% so liver stiffness is acceptable .10/15: Clinically stable. If increases further, could increase fenofibrat e or consider vascepa. GI- José Miguel in [place]. Type 2 sebas betes mellitus 19110672 E11.9 Since 06/12 (a1c values 6.5 and [...] much better with less pain since GB out.Iqraeve r, he is still has nausea and other GI sx which also might be worsened with GLP1-RA or even DPP4i He didn't tolerate metformin when tried in past. Metformin not much benefit for NAFLD. Non-alcoho lic fatty liver 772934707 K76.0 AST= 35 (06/13); was 50 (11/11); [...] liver. Previous conversati on with Dr. Valdez ([facility]) in 2020.She noted that his pancreatit [...] of low dose incretin. History of pancreatitis 3066326117 9107 Z87.19 Doesn't seem to be primarily related to TG since he has had bouts when TG were only in 300s.Much less pain since GB out (per pt) in 02/10.Now on Creon José Miguel ([facility]) reports his pancreatit is was likely more biliary in etiology. Still, have to weigh benefits of incretin (GLP1-RA) against rare risk of pancreatit is [id number] Immanuel Krishna MD Endocrino [facility], [address] [address] 09/15/2023 12:13:03 09/20/2023 07:15:34 Pure hyperglyceridemia 757986258 E78.1 Uncontroll ed GI- José Miguel in [place]. Has been on rosuva 40 and fenofibrat e (54x2) Started pioglitazo ne in 11/2018. TG slightly down.09/15: 112/214/47 /229/23: 118/189/52 /286/23: 147/245/46 /525/23: 146/250/45 [...] U/S in 10/13 confirming NAFLD. MRI at [facility] showed hepatic steatosis without focal pancreatic lesions (04/2019).M RI might be better if want to see if any changes. 08/12: Elastograp hy: IGR to median ratio is <15% so liver stiffness is acceptable .10/15: Clinically stable. If increases further, could increase fenofibrat e or consider vascepa. 09/15: change fenofibrat e from 108 to 120 (single pill) Type 2 sebas betes mellitus 27159189 E11.9 Uncontroll ed A1c values have increased [...] NAFLD. Previous conversati on with Dr. Valdez ([facility]) in 2020.She noted that his pancreatit [...] glucose values improving. Non-alcoho lic fatty liver 451193781 K76.0 AST= 22 (09/15) was 35 (06/13); [...] liver. Previous conversati on with Dr. Valdez ([facility]) in 2020. reviewed again 2022.She noted [...] with scoring severityNA FLD score= 1.1 (https://w roxi.omnical culator.co m/health/n afld-fibro sis-score) FIB4 calculatio n: [...] of low dose incretin. History of pancreatitis 1175697063 9107 Z87.19 Doesn't seem to be primarily related to TG since he has had bouts when TG were only in 300s.Much less pain since GB out (per pt) in 02/10.Now on Creoscar Valdez ([facility]) reports his pancreatit is was likely more biliary in etiology. Still, have to weigh benefits of incretin (GLP1-RA) against rare risk of pancreatit is Uncontroll ed type 2 diabetes mellitus 601726503 E11.65 a1c= 8.1 (09/15); was 8.9 (05/15) was 8.7 (per pt by PCP POC); 8.2 (02/12); was 7.7 (01/12) was 7.1 (10/15); was 6.8 (06/13 and 03/13);Piog litazone only (to try and help with high TG and fatty liver Options:BREWER - increased risk for eewbUFQS2t - increased risk for GUincretin - risk for pancreatit is but he hasn't had any severe bouts since GB out.He didn't tolerate metformin when tried in past. Metformin not much benefit for NAFLD. Tolerating trulicity 0.75. Try increase to 1.5. [id number] Immanuel Krishna MD [facility], [address] [address] 05/18/2023 12:46:50 05/18/2023 16:51:51 Pure hyperglyceridemia 980032395 E78.1 Has been on rosuva 40 and [...] U/S in 10/13 confirming NAFLD. MRI at [facility] showed hepatic steatosis without focal pancreatic lesions (04/2019).M RI might be better if want to see if any changes. 08/12: Elastograp hy: IGR to median ratio is <15% so liver stiffness is acceptable .10/15: Clinically stable. If increases further, could increase fenofibrat e or consider vascepa.: reports had MRI thru [facility]. No recent bouts of pancreatit is. Previou s conversati on with Dr. Valdez ([facility]) in 2020.She noted that his pancreatit is was likely more biliary in etiology. Since GB out, he may well not have as high a risk as previously . In addition, she says he did not have evidence of severe chronic pancreatic damage (calcifica tions, etc.)GI - José Miguel in [place].: left message with GI- want to update and confirm OK to try incretin. Non-alcoho lic fatty liver 499773737 K76.0 Mostly OK in 2021 and 2022. AST generally higher than ALT.In NAFLD, pattern is usually that ALT > AST Pioglitazo ne prescribed in early 12/09 but not refilled until late 02/08 and then in late 05/11. However, seems to be helping with TG and LFTs likely from fatty liver. Previous conversati on with Dr. Valdez ([facility]) in 2020.She noted that his pancreatit [...] with scoring severityNA FLD score= 1.1 (https://w roxi.[employer].co m/health/n afld-fibro sis-score) FIB4 calculatio n: 1.85 (https://w roxi.hepatit [facility] /page/clin ical-calcu lators/fib -4)FIB-4 score <1.45 had [...] try low dose incretin. History of pancreatitis [id number] 9107 Z87.19 Doesn't seem to be primarily related to TG since he has had bouts when TG were only in 300s.Much less pain since GB out (per pt) in 02/10.Now on Stephanie Valdez ([facility] ) reports his pancreatit is was likely more biliary in etiology. Still, have to weigh benefits of incretin (GLP1-RA) against rare risk of pancreatit is Uncontroll ed type 2 diabetes mellitus [id number] E11.65 a1c= 8.7 (per pt by PCP POC); 8.2 (02/12); was 7.7 (01/12) was 7.1 (10/15); was 6.8 (06/13 and 03/13);Piog litazone only (to try and help with high TG and fatty liver Options:BREWER - increased risk for qyoiNTNS4p - increased risk for GUincretin - risk for pancreatit is but he hasn't had any severe bouts since GB out.He didn't tolerate metformin when tried in past. Metformin not much benefit for NAFLD. - message to GI (José Miguel) 05/15. [id number] Arlene Thomson, LAURA Endocrino logy, [address] [address] 06/10/2023 10:01:00 06/10/2023 15:44:28 Pure hyperglyceridemia [id number] E78.1 Has been on rosuva 40 and [...] U/S in 10/13 confirming NAFLD. MRI at [facility] [place] showed hepatic steatosis without focal pancreatic lesions (04/2019).M RI might be better if want to see if any changes. 08/12: Elastograp hy: IGR to median ratio is <15% so liver stiffness is acceptable .10/15: Clinically stable. If increases further, could increase fenofibrat e or consider vascepa.: reports had MRI thru [facility]. No recent bouts of pancreatit is. Previou s conversati on with Dr. Valdez ([facility]) in 2020.She noted that his pancreatit is was likely more biliary in etiology. Since GB out, he may well not have as high a risk as previously . In addition, she says he did not have evidence of severe chronic pancreatic damage (calcifica tions, etc.)GI - José Miguel in [place].: left message with GI- want to update and confirm OK to try incretin. Uncontroll ed type 2 diabetes mellitus [id number] E11.65 a1c= 8.7 (per pt by PCP POC); 8.2 (02/12); was 7.7 (01/12) was 7.1 (10/15); was 6.8 (06/13 and 03/13);Piog litazone only (to try and help with high TG and fatty liver Options:BREWER - increased risk for qirsERRE2c - increased risk for GUincretin - risk for pancreatit is but he hasn't had any severe bouts since GB out.He didn't tolerate metformin when tried in past. Metformin not much benefit for NAFLD. - message to GI (José Miguel) 05/15. Non-alcoho lic fatty liver [id number] K76.0 Mostly OK in 2021 and 2022. AST generally higher than ALT.In NAFLD, pattern is usually that ALT > AST Pioglitazo ne prescribed in early 12/09 but not refilled until late 02/08 and then in late 05/11. However, seems to be helping with TG and LFTs likely from fatty liver. Previous conversati on with Dr. Valdez ([facility]) in 2020.She noted that his pancreatit [...] with scoring severityNA FLD score= 1.1 (https://w roxi.omnical culator.co m/health/n afld-fibro sis-score) FIB4 calculatio n: [...] try low dose incretin. History of pancreatitis [id number] 9107 Z87.19 Doesn't seem to be primarily related to TG since he has had bouts when TG were only in 300s.Much less pain since GB out (per pt) in 02/10.Now on Creon José Miguel ([facility]) reports his pancreatit is was likely more biliary in etiology. Still, have to weigh benefits of incretin (GLP1-RA) against rare risk of pancreatit is [id number] Immanuel Krishna MD Endocrino logy, [address] [phone] 06/25/2023 09:42:36 06/28/2023 07:55:00 Pure hyperglyceridemia [id number] E78.1 Has been on rosuva 40 and [...] U/S in 10/13 confirming NAFLD. MRI at [facility] showed hepatic steatosis without focal pancreatic lesions (04/2019).M RI might be better if want to see if any changes. 08/12: Elastograp hy: IGR to median ratio is <15% so liver stiffness is acceptable .10/15: Clinically stable. If increases further, could increase fenofibrat e or consider vascepa.: reports had MRI thru [facility]. No recent bouts of pancreatit is.07/15: Pt reports had CT recently. Try to get results. Previou s conversati on with Dr. Valdez ([facility]) in 2020.She noted that his pancreatit [...] liver. Uncontroll ed type 2 diabetes mellitus [id number] E11.65 a1c= 8.9 (05/15); was 8.2 (02/12); was 7.7 (01/12) was 7.1 (10/15); was 6.8 (06/13 and 03/13); Pioglitazo ne to try and help with high TG and fatty liverHe didn't tolerate metformin when tried in past. Metformin not much benefit for NAFLD. Trulicity started and now at 0.75.Would like to increase but want to get results of CT from [facility] first. Non-alcoho lic fatty liver [id number] K76.0 Mostly OK in 2021 and 2022. ast/alt= 38/36 (02/12)AST has generally been higher than ALT. In NAFLD, pattern is usually that ALT > AST Pioglitazo ne prescribed in early 12/09 but not refilled until late 02/08 and then in late 05/11. However, seems to be helping with TG and LFTs likely from fatty liver. Previous conversati on with Dr. Valdez ([facility]) in 2020.She noted that his pancreatit [...] with scoring severityNA FLD score= 1.1 (https://w roxi.TraceLinkator.co m/health/n afld-fibro sis-score) FIB4 calculatio n: 1.85 (https://w roxi.hepatit isc..[facility] /page/clin ical-calcu lators/fib -4)FIB-4 score <1.45 had [...] help liver and BG) History of pancreatitis [id number] 9107 Z87.19 Doesn't seem to be primarily related to TG since he has had bouts when TG were only in 300s.Much less pain since GB out (per pt) in 02/10.Now on Creon José Miguel ([facility]) reports his pancreatit is was likely more biliary in etiology. [id number] Immanuel Krishna MD Endocrino logy, [address] [phone] 10/28/2023 12:55:15 10/28/2023 13:41:48 Pure hyperglyceridemia [id number] E78.1 Uncontroll ed GI- José Miguel in [place]. Has been on rosuva 40 and fenofibrat e (54x2) Started pioglitazo ne in 11/2018. TG slightly down.11/13: LABS TODAY09/15: 112/214/47 /229/23: 118/189/52 /286/23: 147/245/46 /525/23: 146/250/45 [...] U/S in 10/13 confirming NAFLD. MRI at [facility] [place] showed hepatic steatosis without focal pancreatic lesions (04/2019).M RI might be better if want to see if any changes. 08/12: Elastograp hy: IGR to median ratio is <15% so liver stiffness is acceptable .10/15: Clinically stable. If increases further, could increase fenofibrat e or consider vascepa. 09/15: change fenofibrat e from 108 to 120 (single pill) Uncontroll ed type 2 diabetes mellitus [id number] E11.65 a1c= today; was 8.1 (09/15); was 8.9 (05/15) was 8.7 (per pt by PCP POC); 8.2 (02/12); was 7.7 (01/12) was 7.1 (10/15); was 6.8 (06/13 and 03/13);Piog litazone only (to try and help with high TG and fatty liver Options:BREWER - increased risk for [id number] - increased risk for GUincretin - risk for pancreatit is but he hasn't had any severe bouts since GB out.He didn't tolerate metformin when tried in past. Metformin not much benefit for NAFLD. Tolerating trulicity 0.75. Try increase to 1.5. RN VISIT 10/28/23 Recent illness: ongoing low back has been bothering himSeen by GI today 10/28/23 - Dr Valdez:- had ABD [...] depend on results. Non-alcoho lic fatty liver [id number] K76.0 AST= 22 (09/15) was 35 (06/13); [...] liver. Previous conversati on with Dr. Valdez ([facility]) in 2020. reviewed again 2022.She noted [...] with scoring severityNA FLD score= 1.1 (https://w roxi.omnical culator.co m/health/n afld-fibro sis-score) FIB4 calculatio n: [...] of low dose incretin. History of pancreatitis [id number] 9107 Z87.19 Doesn't seem to be primarily related to TG since he has had bouts when TG were only in 300s.Much less pain since GB out (per pt) in 02/10.Now on Stephanie Valdez ([facility]) reports his pancreatit is was likely more biliary in etiology. Still, have to weigh benefits of incretin (GLP1-RA) against rare risk of pancreatit is [id number] Immanuel Krishna MD Endocrino logy, [address] [phone] 12/07/2023 12:48:58 12/10/2023 13:40:08 Pure hyperglyceridemia [id number] E78.1 Has been on rosuva 40 and fenofibrat e (54x2) Started pioglitazo ne in 11/2018. TG slightly down.11/13: 117/177/51 /311/24: 112/214/47 /229/23: 118/189/52 /286/23: 147/245/46 /525/23: 146/250/45 /60 TG= 289 (06/13); was 231 (11/11); was 271 (08/12); was 223 (06/12); was 209 (04/12); was 153 (10/13); was 227 (02/09); was 230 (05/11); was 314 (11/08);*Hi ghest [id number] 2007. Was 877 in 07/05.* - TG have been between 250-350 on max rosuvastat in and low dose fenofibrat e. Some improvemen t on kelvin 30 mg. but mostly stable in low 200s. Had U/S in 10/13 confirming NAFLD. MRI at [facility] [facility] showed hepatic steatosis without focal pancreatic lesions (04/2019).M RI might be better if want to see if any changes. 08/12: Elastograp hy: IGR to median ratio is <15% so liver stiffness is acceptable .GI- José Miguel in [place]. 10/15: Clinically stable. If increases further, could increase fenofibrat e or consider vascepa. 09/15: change fenofibrat e from 108 to 120 (single pill) Uncontroll ed type 2 diabetes mellitus [id number] E11.65 a1c= 8.3 (11/13); was 8.1 (09/15); was 8.9 (05/15) was 8.7 (per pt by PCP POC); 8.2 (02/12); was 7.7 (01/12) was 7.1 (10/15); was 6.8 (06/13 and 03/13);Piog litazone only (to try and help with high TG and fatty liver Options:BREWER - increased risk for [id number] - increased risk for GUincretin - risk [...] and no lows Non-alcoho lic fatty liver 072732105 K76.0 AST= 22 (09/15) was 35 (06/13); [...] liver. Previous conversati on with Dr. Valdez ([facility]) in 2020. reviewed again 2022.She noted [...] with scoring severityNA FLD score= 1.1 (https://w roxi.omnical culator.co m/health/n afld-fibro sis-score) FIB4 calculatio n: [...] of low dose incretin. History of pancreatitis [id number] 9107 Z87.19 Doesn't seem to be primarily related to TG since he has had bouts when TG were only in 300s.Much less pain since GB out (per pt) in 02/10.Now on Stephanie Valdez ([facility]) reports his pancreatit is was likely more biliary in etiology. Still, have to weigh benefits of incretin (GLP1-RA) against rare risk of pancreatit is [id number] Immanuel Krishna MD Endocrino logy, [address] [phone] 04/05/2024 11:53:58 04/06/2024 08:45:17 Pure hyperglyceridemia [id number] E78.1 On rosuva 40 and fenofibrat e [...] U/S in 10/13 confirming MASLD. MRI at [facility] [facility] showed hepatic steatosis without focal pancreatic lesions [...] daily. Uncontroll ed type 2 diabetes mellitus [id number] E11.65 a1c= 7.8 (02/13); was 8.3 (11/13) [...] NAFLD. Previous conversati on with Dr. Valdez ([facility]) in 2020.She noted that his pancreatit [...] or sulfonylur ea). Non-alcoho lic fatty liver 186906101 K76.0 AST= 22 (09/15) was 35 (06/13); [...] liver. Previous conversati on with Dr. Valdez ([facility]) in 2020. reviewed again 2022.We discussed [...] with scoring severityNA FLD score= 1.1 (https://w roxi.Mingleplay culator.co m/health/n afld-fibro sis-score) FIB4 calculatio n: [...] well. Increase to max dose Trulicity (04/15)Lázaro christinee for updated elastograp hy. History of pancreatitis [id number] 9107 Z87.19 Doesn't seem to be primarily related to TG since he has had bouts when TG were only in 300s.Much less pain since GB out (per pt) in 02/10.Now on Creon Previous conversati on with Dr. Valdez ([facility]) in 2020.She noted that his pancreatit [...] These factors increase complexity . José Miguel ([facility]) reports his pancreatit is was likely more biliary in etiology. Still, continue to monitor to assess benefits vs. risks of incretin (GLP1-RA) against rare risk of pancreatit is [id number] Immanuel Krishna MD Endocrino logy, [address] [phone] 08/03/2024 09:56:59 08/08/2024 07:28:51 Uncontrolled type 2 diabetes mellitus [id number] E11.65 Updated A1c - 7.6 % 04/2024 [...] POST MEAL IN PM ---- AND HS-------- -----08/03 --------- 85-------- -----08/02 --------- 97-------- -------PM - 122------- ------HS --- 109------- ------12/1 0--------- -109------ ----152--- ------- 148------- ------12/0 9--------- - 79-------- ---126---- -------109 ---8--- 10-------- --134----- ----- 151------- ------12/7 ---99----- -----127-- --------10 4--------- -----12/6- --93------ ----147--- -------162 ----12/5-- 115------- --101----- -----166-- --12/4---- --------10 4--------- 106------- ---142---- 12/3------ ------103- --------16 2--------- -116------ --------12 /2-------- ----104--- ------107- ---12/1--- ---------1 03-------- -116------ ----116Dr Brian to review [...] ID Guarantor Name 09/15/2023 1 MEDICARE B-[place]: [facility] Elvin Sutherland [id number] Elvin Sutherland 09/15/2023 2 [place] [facility] Elvin Sutherland [id number] Elvin Sutherland 10/28/2023 1 MEDICARE B-[place]: [facility] Elvin Sutherland [id number] Elvin Sutherland 10/28/2023 2 [place] [facility] Elvin Sutherland [id number] Elvin Sutherland 12/07/2023 1 MEDICARE B-[place]: [facility] Elvin Sutherland [id number] Elvin Sutherland 12/07/2023 2 [place] Elvin Sutherland [id number] Elvin Sutherland 04/05/2024 1 MEDICARE B-[place]: [facility] Elvin Sutherland [id number] Elvin Sutherland 04/05/2024 2 [place] Elvin Sutherland [id number] Elvin Sutherland 08/03/2024 1 MEDICARE B-[place]: [facility] Elvin Sutherland [id number] Elvin Sutherland 08/03/2024 2 [place] Elvin Sutherland [id number] Elvin Sutherland Notes Date Note Type Note [...] 42 (10/13); was 47 (02/09); was 35 (2018); was 35 (11/08)); 09/15: No steroids. 05/15: [...] 1900 in 2007 and 877 in 07/05.09/15: 112/214/47//: 147/245/46/52 Checking blood sugars mostly in AMB= 120-220 (09/15); Used to check two times daily..........FBS.......................... .......L............................D....... ...........BT9/26..1749/25...137............ ............................................ ........................2009/24...176....... ............................................ ...........................1919/23...162.... ............................................ ..............................1759/22...122. ............................................ ................................1139/21...24 1........................................... ...................................2399/20.. .158........................................ .....................................151/19 ............................................ ............................................ 139/17...195............................... ............................................ .: Likely add GLIP 2.5 bid [...] to stop. PCP: Crystal: José Miguel in [facility] to [facility] for GI- told pancreas was OK. Thought [...] a time. FAMILY Hx (updated):Mom alive in [place] (81 in 05/15). On dialysis since 2013. T2DM.6 Sisters healthy. No kid: No changes. PANCREATITIS AND FATTY LIVER:Pancreatitis 12/08/2020- had gallbladder removed 01/2021 - [facility]. Feeling wmytbk76/21: Saw surgeon in [place] to take GB out- Surgery was 02/10.No [...] with standing in AM. Immanuel Krishna MD [address] [place] [address], [facility] [place], [phone] , [facility] [place] 4 14:56:51 10/27 text/ html Previous Hx :Had previous Nurse visit 06/2023 - dietary intake done at that visitMD LV - 08/2023 :Options:BREWER- increased risk for vpliLXRF6v- increased risk for GUincretin- risk for pancreatitis [...] lowsNV with MD - 04/05/24 12:20 PM [facility] [place] with Nursing - 6 weeksRX's sent to pharmacy - If none - refills needed on any meds ? Accu chek test strips for 3 times dailyFenofibrate for 54 mg 2 tabs dialy - (pt cannot tolerate 120mg tab daily d/t nausea)Lab orders - In place until 08/2024DME forms completed?N/ANurse : Valerie Thomson,LAURA Krishna MD [address] [place] [address], [facility] [place], [phone] [place] [address] 4 16:58:25 12/06 text/ html Previous Hx :Nurse visit 06/2023 - dieta ry intake done at that visitNurse visit 10/2023 -MD MCCOY - 08/2023 :Options:BREWER- increased risk for [id number]- increased risk for GUincretin- risk for pancreatitis [...] lowsNV with MD - 04/05/24 12:20 PM [facility] with Nursing - 6 weeksRX's sent to pharmacy - If none - refills needed on any meds ? Trulicity 3 mg to [facility] Lab orders - In place until 08/2024DME forms completed?N/ANurse : LAURA Arauz MD [address] [place] [address], [facility] [place], [phone] , [facility] [place] 4 19:01:09 04/05 text/ html DiabetesReported bypatient.Labs:last [...] to stop. PCP: Crystal: José Miguel in [facility] to [facility] for GI- told pancreas was OK. Thought fatty liver was contributing. Follow-Up: non-alcoholic fatty liverFollow-Up: pure hyperglyceridemiaFollow-Up: pure hypercholesterolemiaHypertriglyceridemiaDiab etes Type IIissues; wants to schedule cortisone injection with pain management in [place] and needs to be able to tell his Aic at scheduling time . I will [id number] order for lab today LV on 09/15las nurse visit on 12/14LAst labs on 02/13 A1C- 7.8Lab orders in place until 09/16Checking blood sugars 3 times fasting AM , [facility] dinner, [facility] [...] back issues. FAMILY Hx (updated):Mom alive in [place] (81 in 05/15). On dialysis since 2013. T2DM.6 Sisters healthy.No kid: No changes.04/15: Mom doing OK (82); Dad 02/13- colon CA (age 89) PANCREATITIS AND FATTY LIVER:Pancreatitis 12/08/2020- had gallbladder removed 01/2021 - [facility]. Feeling zeqdad79/21: Saw surgeon in [place] to take GB out- Surgery was 02/10.No pain since then.Elastography done 08/12 ([facility]): IGR to median ratio is <15% so [...] with standing in AM. Immanuel Krishna MD [address] [place] [address], [facility] [place], [phone], [facility] 4 13:12:46 08/03 text/ html [...] GI d/t GI upset and hx pancreatitis/fatty [id number] - sand which or rice and beans [...] 134 --- 151 12/7 99 127------ 104 -------6 93 --147 162 12/5 115------- 101 166------ 12/4 104 106 -142 123-- 103 162--------- 116 ----07/24 104 10 7 07/23----- -------103 116 --------[address] Krishna 10/10/24 = [facility] 3:30 PMNext Visit LAURA -Kranthi - Due for a1c this monthNurse: LAURA Arauz MD [address] [place], [place] [address], [phone] , [facility] [place] 4 13:18:52
[2024-10-09 18:52] LABS: Basophils Percent Auto 0.4 % (0-2); Eosinophils Percent Auto 0.6 % (0-4); Hematocrit 34.6 % (42.0-52.0); Hemoglobin 11.6 g/dl (14.0-18.0); Imm Gran Abs Auto 0.02 X10*3/uL (0.00-0.03); Imm Gran Pct Auto 0.4 % (0.0-0.4); Lymphocytes Absolute Auto 1.7 X10*3/uL (1.2-4.9); Lymphocytes Percent Auto 34.2 % (20-40); Mean Corpuscular HGB Conc 33.5 g/dl (31.0-36.0); Mean Corpuscular Hemoglobin 28.4 pg (27.0-33.0); Mean Corpuscular Volume 84.8 fL (80.0-98.0); Mean Platelet Volume 12.5 fL (9.4-12.4); Monocytes Absolute Auto 0.5 X10*3/uL (0.1-1.2); Monocytes Percent Auto 10.7 % (2-11); Neutrophils Absolute Auto 2.7 x10*3/uL (2.0-8.3); Neutrophils Percent Auto 53.7 % (45-73); Platelet Count 186 X10*3/uL (160-400); Red Blood Count 4.08 X10*6/uL (4.60-5.80); Red Cell Distribution Width 13.8 % (11.0-16.0); White Blood Count 5.1 X10*3/uL (4.8-10.8)
[2024-10-09] MEDS: ondansetron HCL 4 MG/2 ML VIAL IVPUSH (18:57)
[2024-10-09] MEDS: HYDROmorphone HCl 1 MG/ML SYRINGE IVPUSH ×3 (18:58→23:02)
[2024-10-09] MEDS: 0.9 % Sodium Chloride 1,000 ML 999 ML IVCONT (18:59)
[2024-10-09 19:26] LABS: Appearance Urine Clear; Color Urine Yellow; Glucose Urine UA Negative (Negative); Leukocyte Esterase Urine Negative (Negative); Nitrite Urine Negative (Negative); Urine Blood Negative (Negative); Urine Ketones Negative (Negative); Urine Protein Negative (Neg-Trace)
[2024-10-09 19:28] LABS: Troponin-I High Sensitivity 2.8 ng/L (<3.5-35.0)
[2024-10-09 19:31] LABS: Ethanol < 10 mg/dL
[2024-10-09 19:33] LABS: Alanine Aminotransferase 21 U/L (0-40); Alkaline Phosphatase 53 U/L (39-117); Anion Gap 12 (12-20); Aspartate Amino Transferase 37 U/L (5-37); Bilirubin Direct 0.2 mg/dL (0.0-0.5); Bilirubin Total 0.3 mg/dL (0.0-1.0); Blood Urea Nitrogen 15 mg/dL (9-16); Calcium 10.1 mg/dL (8.4-10.2); Carbon Dioxide 21 mmol/L (22-29); Chloride 112 mmol/L (96-108); Creatinine Clr Calc Pharmacy 63.4; Estimated Glomerular Filt Rate 60; Glucose Random 148 mg/dL (60-115); Magnesium 1.2 mg/dL (1.6-2.6); Potassium 4.1 mmol/L (3.3-5.1); Sodium 141 mmol/L (135-145); Total Protein 7.6 g/dL (6.5-8.0); Triglycerides 237 mg/dL (<150)
[2024-10-09] MEDS: iohexoL 350 MG/ML 100 ML INFUS..BTL IV (19:44)
[2024-10-09] MEDS: Magnesium Sulfate/H2O 2 GM/50 ML PIGGYBACK IV (19:56)
[2024-10-09 20:08] LABS: Lipase 49 U/L (8-78)
--- NOTE | 2024-10-09 20:49 | PC.NURSE ---
Patient is alert and oriented x4, VSS. Patient medicated with Dilaudid 1 mg IV x2 with minimal relief in pain. Dr. Ochoa is aware. Patient is currently resting in a stretcher bed, watching TV, call oneal in patient's reach.
--- NOTE | 2024-10-09 22:19 | P.HPHOSP_ITS ---
History of Present Illness Date of Service: 10/09/24 Attending physician on admission: Amisha Dozier Chief Complaint: abd pain, nausea Patient is a 54-year-old male with a past medical history significant for chronic pancreatitis, type 2 diabetes, chronic constipation, and migraines who presented to the ED due to worsening upper abdominal pain times 10 days. He was seen in the ED 3 days ago and sent home with p.o. pain medication for an episode of acute pancreatitis. He reports that the pain has been worsening and he has severe nausea but no vomiting. He has not been able to tolerate much by mouth. He also complains of a mild headache. He denies any runny nose, congestion, cough, lower extremity edema or urinary symptoms including frequency urgency or hematuria. Review of Systems 2 Constitutional: Constitutional: Denies chills, Denies fatigue, Denies fever(s) and Reports headache(s) Eyes: Eyes: Denies change in vision and Denies photophobia ENT: Reports headache(s), Denies nasal congestion, Denies nasal discharge and Denies sore throat Cardiovascular: Cardiovascular: Denies chest pain, Denies rapid heart rate, Denies leg edema, Denies lightheadedness and Denies dyspnea Respiratory: Respiratory: Denies chest congestion, Denies cough, Denies dyspnea and Denies wheezing Gastrointestinal: Gastrointestinal: Denies melena, Denies hematochezia, Reports constipation, Denies diarrhea, Reports nausea and Denies vomiting Genitourinary: Genitourinary: Denies difficulty urinating, Denies dysuria and Denies urinary frequency Musculoskeletal: Musculoskeletal: Denies back pain Integumentary/Breasts: Skin/Breast: Denies rash Neurologic: Denies confusion and Reports headache(s) Psychiatric: Psychiatric: Denies confusion Endocrine: Endocrine: Denies fatigue Hematologic/Lymphatic: Hematologic/Lymphatic: Denies easy bleeding and Denies easy bruising Allergic/Immunologic: Allergic/Immunologic: Denies wheezing [facility] Medical History Diabetes Kidney stone Pancreatitis Migraine HTN (hypertension) Depression Functional capacity: independent ambulation Surgical History S/P laparoscopic cholecystectomy (02/12/21) History of elbow surgery Hx of endoscopy Hx of colonoscopy H/O neck surgery Social History Household Members: Spouse Housing: Apartment Do you presently have visiting nurse or other home services: No Alcohol intake: never Patient Tobacco Use Status: Never used Tobacco Smoked in Last 30 Days: No Second Hand Smoke Exposure: No Use of substances other than those prescribed or required for medical reasons: No Advance Directives: Yes Advance Directives on File: Yes Advance Directives Date on File: 12/19/20 Do you have a plan to hurt others: No Plan service: No Current occupational status: disabled Narrative: No smoking, alcohol or drug use Meds Allergies Allergy/AdvReac Type Severity Reaction Status Date / Time gabapentin [GABAPENTIN] Allergy Mild RASH Verified 10/09/24 18:21 famotidine [From Pepcid] Allergy Unknown RASH Verified 10/09/24 18:21 pregabalin [From LYRICA] Allergy Unknown VOMITING Verified 10/09/24 18:21 pantoprazole [From Protonix] Allergy Rash Verified 10/09/24 18:21 ibuprofen [From Advil] AdvReac Unknown STOMACH Verified 10/09/24 18:21 UPSET morphine AdvReac Headache Verified 10/09/24 18:21 Active Medications: Current Medications Acetaminophen (Acetaminophen 325 Mg Tablet) 650 mg PO Q6H PRN PRN Reason: Pain, Mild 1-3,fever,headache Calcium Carbonate (Calcium Carbonate 750 Mg Tab.Chew) 750 mg PO Q4H PRN PRN Reason: Heartburn Dextrose (Dextrose 50 % 25 Gm/50 Ml Syringe) 25 gm IVPUSH Q15M PRN; Protocol PRN Reason: per Hypoglycemia Standing Ord. Enoxaparin Sodium (Enoxaparin Sodium 40 Mg/0.4 Ml Syringe) 40 mg SUBCUT Q24H MACKENZIE Glucose (Glucose Gel 15 Gm Gel..Gram.) 15 gm PO Q15M PRN; Protocol PRN Reason: per Hypoglycemia Standing Ord. Hydromorphone HCl (Hydromorphone Hcl 1 Mg/Ml Syringe) 1 mg IVPUSH Q4H PRN; Protocol PRN Reason: Pain, Severe (Pain Scale 7-10) Lactated Ringer's (Lr) 1,000 mls @ 100 mls/hr IVCONT .Q10H MACK[place]ZIE Stop: 10/10/24 07:59 Insulin Human Lispro (Insulin Lispro 100 Unit/Ml 3 Ml Vial) 0 unit SUBCUT Q6H [facility]; Protocol Magnesium Hydroxide (Milk Of Magnesia 30 Ml Oral.Susp) 30 ml PO DAILY PRN PRN Reason: Constipation Melatonin (Melatonin 3 Mg Tablet) 6 mg PO BEDTIME PRN PRN Reason: Insomnia Ondansetron HCl (Ondansetron Hcl 4 Mg/2 Ml Vial) 4 mg IVPUSH Q8H PRN PRN Reason: Nausea and Vomiting Sodium Chloride (0.9 % Sodium Chloride Flush 3 Ml Syringe) 3 ml IVFLUSH QSHIFT [facility] Home Medications ?Medication ?Instructions ?Recorded ?Confirmed ?Last Taken ?Type fenofibrate 54 mg tablet 2 tab PO DAILY 12/08/20 08/31/24 Unknown History fluoxetine 20 mg capsule 1 cap PO DAILY 12/08/20 08/31/24 Unknown History nortriptyline 25 mg capsule 25 cap PO BEDTIME 12/08/20 08/31/24 Unknown History ondansetron 4 mg disintegrating 1 tab PO Q8H PRN Nausea And 12/08/20 08/31/24 Unknown History tablet Vomiting oxycodone 10 mg tablet 1 tab PO QID PRN Pain 12/08/20 08/31/24 Unknown History pioglitazone 15 mg tablet 1 tab PO BID 12/08/20 08/31/24 Unknown History rosuvastatin 40 mg tablet 1 tab PO DAILY 12/08/20 08/31/24 Unknown History sumatriptan succinate 100 mg tablet 100 mg PO DAILY PRN Migraine 12/08/20 08/31/24 Unknown History Headache tizanidine 4 mg tablet 1 tab PO TID 12/08/20 08/31/24 Unknown History zolpidem 10 mg tablet 10 tab PO BEDTIME PRN Insomnia 12/08/20 08/31/24 Unknown History cholecalciferol (vitamin D3) 25 25 mcg PO DAILY 11/27/21 08/31/24 Unknown History mcg (1,000 unit) capsule docusate sodium 100 mg capsule 100 mg PO BID PRN Constipation 05/28/22 08/31/24 Unknown History dulaglutide 3 mg/0.5 mL 4.5 mg subcut QWEEK 08/31/24 08/31/24 Unknown History subcutaneous pen injector (Trulicity) Physical Exam 2 Vital Signs and Narrative: Vital Signs: Last Vital Signs Temp 97.8 F 10/09/24 19:07 Pulse 89 10/09/24 19:07 Resp 15 10/09/24 20:26 BP 125/75 10/09/24 19:07 Pulse Ox 96 10/09/24 19:07 O2 Del Method Room Air 10/09/24 19:07 BMI result Body Mass Index 28.7 General: AOx3, no acute distress Resp: CTA bilaterally CVS: S1, S2, RRR GI: +BS, tender epigastric region, no distention Skin: Warm, dry Neuro: Cranial nerves II-XII grossly intact bilaterally. Motor grossly intact bilaterally Extremities: No LE edema Psych: Appropriate affect Const: General: No confusion Orientation/consciousness: No confusion Eyes: Direct Ophthalmoscopy: No photophobia Neuro: General: No confusion Results Labs 10/09/24 18:37 10/09/24 18:37 Labs: Laboratory Results - last 24 hr 10/09/24 10/09/24 18:37 18:49 MCV 84.8 MCH 28.4 MCHC 33.5 RDW 13.8 Plt Count 186 MPV 12.5 H Immature Gran % (Auto) 0.4 Neut % (Auto) 53.7 Lymph % (Auto) 34.2 [place] % (Auto) 10.7 Eos % (Auto) 0.6 Baso % (Auto) 0.4 Lymph # (Auto) 1.7 [place] # (Auto) 0.5 Eos # (Auto) 0.0 Baso # (Auto) 0.0 Abs Immat Gran (auto) 0.02 Absolute Neuts (auto) 2.7 Absolute Nucleated RBC 0.000 Nucleated RBC % (auto) 0.0 Anion Gap 12 Estim Creat Clear Calc 63.4 Estimated GFR 60 Random Glucose 148 H Calcium 10.1 Magnesium 1.2 L* Total Bilirubin 0.3 Direct Bilirubin 0.2 AST 37 ALT 21 Alkaline Phosphatase 53 Total Protein 7.6 Albumin 4.0 Triglycerides 237 H Lipase 49 Urine Color Yellow Urine Appearance Clear Urine pH 6.0 Ur Specific [place] 1.020 Urine Protein Negative Urine Glucose (UA) Negative Urine Ketones Negative Urine Blood Negative Urine Nitrite Negative Ur Leukocyte Esterase Negative Ethyl Alcohol < 10 Assessment and Plan (1) Acute on chronic pancreatitis: Status: Acute Plan Patient is a 54-year-old male with a past medical history significant for chronic pancreatitis, type 2 diabetes, chronic constipation, and migraines who presented to the ED due to worsening upper abdominal pain times 10 days. acute on chronic pancreatitis - WBC normal, vitals stable, no sepsis - A/P with acute on chronic pancreatitis - triglycerides mildly elevated - lipase 49 - NPO - IVF: LR 100ml/hr x1L - stop trulicity - monitor CBC and BMP T2DM - stop trulicity as above - sliding scale insulin chronic constipation - continue home meds when appropriate Full code VTE prophylaxis: Lovenox Patient with acute on chronic pancreatitis requiring admission for at least 2 midnights stay IV pain management, fluids and monitoring. Quality Stroke Does the patient have a stroke diagnosis?: No VTE Prior VTE?: No VTE Risk Level:: Medical - moderate - high VTE Device Contraindication: Treatment Not Indicated VTE Drug Contraindication: N/A - Med Ordered
--- NOTE | 2024-10-09 22:54 | PHA.MEDREC ---
Addendum entered by Yayo Lee RP 10/10/24 06:51: Reviewed by [facility] Original Note: Pharmacy Consult ? Medication Reconciliation Pharmacy has completed the medication reconciliation. Spoke with patient to confirm medications. 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 He is currently using ketoconazole and clobetasol. He is not currently using betamethasone (for scalp). His Aimovig is every month on the , last taken on 09/11 and due 10/12. His oxycodone is scheduled q6h. His Trulicity is on Fridays, he had it last Wednesday. He is not taking fluoxetine currently. He takes 2 caps of creon with meals and 1 cap with snacks. Patient reports he took morning meds today.
[2024-10-09 23:01] LABS: Glucose, Whole Blood 103 mg/dL (60-115)
[2024-10-09] MEDS: Enoxaparin Sodium 40 MG/0.4 ML SYRINGE SUBCUT (23:02)
[2024-10-09] MEDS: Lactated Ringers 1,000 ML 100 ML IVCONT (23:03)
[2024-10-10] VITALS (7 sets, daily range): BP systolic 104–137; BP diastolic 59–74; PULSE 84–99; RESP 16–20; TEMP 36–37.2; O2SAT 93–98; BMI 28.7
[2024-10-10] MEDS: ondansetron HCL 4 MG/2 ML VIAL IVPUSH ×2 (01:18→10:21)
--- NOTE | 2024-10-10 01:18 | PC.NURSE ---
Patient c/o nausea, medicated with PRN Zofran 4 mg IV push.
[2024-10-10] MEDS: HYDROmorphone HCl 1 MG/ML SYRINGE IVPUSH ×7 (03:23→23:30)
[2024-10-10 03:29] LABS: Glucose, Whole Blood 91 mg/dL (60-115)
[2024-10-10] MEDS: HYDROmorphone HCl 2 MG/ML VIAL 1.5 MG IVPUSH (05:28)
[2024-10-10 06:15] LABS: MANUAL DIFF FLAG NO
[2024-10-10 06:23] LABS: Basophils Percent Auto 0.5 % (0-2); Eosinophils Percent Auto 0.7 % (0-4); Hematocrit 33.2 % (42.0-52.0); Hemoglobin 11.1 g/dl (14.0-18.0); Imm Gran Abs Auto 0.02 X10*3/uL (0.00-0.03); Imm Gran Pct Auto 0.5 % (0.0-0.4); Lymphocytes Absolute Auto 1.9 X10*3/uL (1.2-4.9); Lymphocytes Percent Auto 45.9 % (20-40); Mean Corpuscular HGB Conc 33.4 g/dl (31.0-36.0); Mean Corpuscular Volume 83.6 fL (80.0-98.0); Mean Platelet Volume 12.4 fL (9.4-12.4); Monocytes Absolute Auto 0.4 X10*3/uL (0.1-1.2); Neutrophils Absolute Auto 1.8 x10*3/uL (2.0-8.3); Neutrophils Percent Auto 42.4 % (45-73); Platelet Count 186 X10*3/uL (160-400); Red Blood Count 3.97 X10*6/uL (4.60-5.80); Red Cell Distribution Width 13.9 % (11.0-16.0); White Blood Count 4.1 X10*3/uL (4.8-10.8)
[2024-10-10 06:43] LABS: Anion Gap 12 (12-20); Blood Urea Nitrogen 15 mg/dL (9-16); Calcium 9.3 mg/dL (8.4-10.2); Carbon Dioxide 20 mmol/L (22-29); Chloride 112 mmol/L (96-108); Creatinine Clr Calc Pharmacy 73.8; Estimated Glomerular Filt Rate > 60; Glucose Random 102 mg/dL (60-115); Potassium 3.1 mmol/L (3.3-5.1); Sodium 141 mmol/L (135-145)
[2024-10-10 07:39] LABS: Glucose, Whole Blood 91 mg/dL (60-115)
[2024-10-10] MEDS: Pantoprazole Sodium 40 MG/10 ML VIAL IVPUSH ×2 (08:44→17:24)
[2024-10-10] MEDS: Docusate Sodium 100 MG CAPSULE PO (08:58)
[2024-10-10] MEDS: Multivitamin TABLET 1 TAB PO (08:58)
[2024-10-10] MEDS: Cholecalciferol (Vitamin D3) 25 MCG TABLET PO (08:58)
[2024-10-10 10:19] LABS: Glucose, Whole Blood 91 mg/dL (60-115)
[2024-10-10] MEDS: SUMAtriptan succinate 100 MG TABLET PO (10:28)
[2024-10-10] MEDS: Potassium Chloride/H20 10 MEQ/100 ML PIGGYBACK 100 MEQ IV ×4 (10:28→18:16)
--- NOTE | 2024-10-10 10:53 | P.CNGI_ITS ---
History of Present Illness Data of Consult Service Date: 10/10/24 Primary Care Provider: Alfa Saeed MD HPI Reason for consult: pancreatitis 54-year-old male with a past medical of chronic pancreatitis, type 2 diabetes, chronic constipation, and migraines who I am seeing for assessment for acute on chronic pancreatitis. He had severe epigastric burning pain going into the back for 10 d which was similar to prev attacks of acute pancreatitis. He has had attacks going on for maybe 15 years with index attacks thought to have been due to hypertriglyceridemia >1000 but now this is not an issue. He also had cholecystectomy to see if helped but not really. 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 he does admit to nausea but no vomiting, no recent alcohol or drugs. He denies any runny nose, congestion, cough, lower extremity edema or urinary symptoms including frequency urgency or hematuria. He sees Dr Valdez and has been referred to [facility] for further assessment He has had EUS in the past as well. Ct imaging this admission with acute on chronic pancreatitis. dense calcifications in head and dilated PD noted. Review of Systems 2 Review of Systems: Constitutional : No Weight loss, No Fever, No Chills ENT/Mouth : No sore throat, No Rhinorrhea Eyes: No Swelling, No Redness Cardiovascular : No Chest Pain, No SOB, No Edema Respiratory : No Cough, No Sputum, No Wheezing Gastrointestinal : see HPI Genitourinary : NO Dysuria, No Urinary Frequency, No Hematuria, No Urgency Musculoskeletal : nor joint pain, No Myalgias, No Joint Swelling Skin : No Skin Lesions, No rash Neuro : No Weakness, No Numbness, No Dizziness, No Headache Psych : No Anxiety/Panic, No Depression Heme/Lymph: No Bruising, No Lymphadenopathy Endocrine : No Polyuria, No Polydipsia All other systems reviewed and are negative. [facility] Past Medical History Medical History Diabetes Kidney stone Pancreatitis Migraine HTN (hypertension) Depression Surgical History Surgical History S/P laparoscopic cholecystectomy (02/12/21) History of elbow surgery Hx of endoscopy Hx of colonoscopy H/O neck surgery Social History Social History Household Members: Significant Other Housing: Apartment Do you presently have visiting nurse or other home services: No Alcohol intake: never Patient Tobacco Use Status: Never used Tobacco Second Hand Smoke Exposure: No Advance Directives Date on File: 12/19/20 service: No Current occupational status: disabled Meds Allergies Allergy/AdvReac Type Severity Reaction Status Date / Time gabapentin [GABAPENTIN] Allergy Mild RASH Verified 10/09/24 18:21 famotidine [From Pepcid] Allergy Unknown RASH Verified 10/09/24 18:21 pregabalin [From LYRICA] Allergy Unknown VOMITING Verified 10/09/24 18:21 pantoprazole [From Protonix] Allergy Rash Verified 10/09/24 18:21 ibuprofen [From Advil] AdvReac Unknown STOMACH Verified 10/09/24 18:21 UPSET morphine AdvReac Headache Verified 10/09/24 18:21 Active Medications: Current Medications Acetaminophen (Acetaminophen 325 Mg Tablet) 650 mg PO Q6H PRN PRN Reason: Pain, Mild 1-3,fever,headache Lipase/Protease/Amylase (Lipase/Prot/Amylase 12/38/60k Capsule.) 1 cap PO DAILY PRN PRN Reason: with snacks Lipase/Protease/Amylase (Lipase/Prot/Amylase 12/38/60k Capsule.) 2 cap PO TIDWM [facility] Last Admin: 10/10/24 08:54 Dose: Not Given Betamethasone Dipropion Augmented (Betamethasone Dip Aug 0.05% Cr 15 Gm Tube) 1 appl TOPICAL BID PRN PRN Reason: CTCL flares Calcium Carbonate (Calcium Carbonate 750 Mg Tab.Chew) 750 mg PO Q4H PRN PRN Reason: Heartburn Clotrimazole (Clotrimazole 1 % Cream 15 Gm Tube) 1 appl TOPICAL BID PRN PRN Reason: CTCL flares Dextrose (Dextrose 50 % 25 Gm/50 Ml Syringe) 25 gm IVPUSH Q15M PRN; Protocol PRN Reason: per Hypoglycemia Standing Ord. Docusate Sodium (Docusate Sodium 100 Mg Capsule) 100 mg PO DAILY [facility] Last Admin: 10/10/24 08:58 Dose: 100 mg Enoxaparin Sodium (Enoxaparin Sodium 40 Mg/0.4 Ml Syringe) 40 mg SUBCUT Q24H [facility] Last Admin: 10/09/24 23:02 Dose: 40 mg Glucose (Glucose Gel 15 Gm Gel..Gram.) 15 gm PO Q15M PRN; Protocol PRN Reason: per Hypoglycemia Standing Ord. Hydromorphone HCl (Hydromorphone Hcl 1 Mg/Ml Syringe) 1 mg IVPUSH Q3H PRN; Protocol PRN Reason: Pain, Severe (Pain Scale 7-10) Potassium Chloride (Potassium Chloride/H20) 10 meq in 100 mls @ 100 mls/hr IV Q1H [facility] Stop: 10/10/24 12:14 Last Admin: 10/10/24 10:28 Dose: 100 mls/hr Lactated Ringer's (Lr) 1,000 mls @ 100 mls/hr IVCONT .Q10H [facility] Insulin Human Lispro (Insulin Lispro 100 Unit/Ml 3 Ml Vial) 0 unit SUBCUT Q6H [facility]; Protocol Last Admin: 10/10/24 10:16 Dose: Not Given Magnesium Hydroxide (Milk Of Magnesia 30 Ml Oral.Susp) 30 ml PO DAILY PRN PRN Reason: Constipation Melatonin (Melatonin 3 Mg Tablet) 6 mg PO BEDTIME PRN PRN Reason: Insomnia Multivitamins/Vitamin C (Multivitamin Tablet) 1 tab PO DAILY [facility] Last Admin: 10/10/24 08:58 Dose: 1 tab Non-Formulary Medication (Dulaglutide [Trulicity]) 4.5 mg SUBCUT FR [facility] Non-Formulary Medication (Erenumab-Aooe [Aimovig Autoinjector]) 140 mg SUBCUT Q28D [facility] Non-Formulary Medication (Linaclotide [Linzess]) 145 mcg PO DAILY [facility] Nortriptyline HCl (Nortriptyline Hcl 25 Mg Capsule) 75 mg PO BEDTIME [facility] Ondansetron HCl (Ondansetron Hcl 4 Mg/2 Ml Vial) 4 mg IVPUSH Q8H PRN PRN Reason: Nausea and Vomiting Last Admin: 10/10/24 10:21 Dose: 4 mg Pantoprazole Sodium (Pantoprazole Sodium 40 Mg/10 Ml Vial) 40 mg IVPUSH BID@0630,1630 [facility] Last Admin: 10/10/24 08:44 Dose: 40 mg Sodium Chloride (0.9 % Sodium Chloride Flush 3 Ml Syringe) 3 ml IVFLUSH QSHIFT [facility] Last Admin: 10/10/24 07:13 Dose: Not Given Sumatriptan Succinate (Sumatriptan Succinate 100 Mg Tablet) 100 mg PO DAILY PRN PRN Reason: Migraine Headache Last Admin: 10/10/24 10:28 Dose: 100 mg Sumatriptan Succinate (Sumatriptan Succinate 100 Mg Tablet) 100 mg PO DAILY PRN PRN Reason: Migraine Headache Tizanidine HCl (Tizanidine Hcl 4 Mg Tablet) 4 mg PO Q8H PRN PRN Reason: muscle spasms Triamcinolone Acetonide (Triamcinolone Acet 0.1 % Cream 15 Gm Tube) 1 appl TOPICAL BID PRN PRN Reason: CTCL flares on scalp Vitamin D (Cholecalciferol (Vitamin D3) 25 Mcg Tablet) 25 mcg PO DAILY MACKENZIE Last Admin: 10/10/24 08:58 Dose: 25 mcg Zolpidem Tartrate (Zolpidem Tartrate 5 Mg Tablet) 10 mg PO BEDTIME [facility] Home Medications ?Medication ?Instructions ?Recorded ?Confirmed ?Last Taken ?Type fenofibrate 54 mg tablet 2 tab PO DAILY 12/08/20 10/09/24 Unknown History nortriptyline 25 mg capsule 75 mg PO BEDTIME 12/08/20 10/10/24 Unknown History ondansetron 4 mg disintegrating 1 tab PO Q8H PRN Nausea And 12/08/20 10/09/24 Unknown History tablet Vomiting oxycodone 10 mg tablet 1 tab PO Q6H Pain 12/08/20 10/09/24 Unknown History rosuvastatin 40 mg tablet 1 tab PO DAILY 12/08/20 10/09/24 Unknown History sumatriptan succinate 100 mg tablet 100 mg PO DAILY PRN Migraine 12/08/20 10/09/24 Unknown History Headache tizanidine 4 mg tablet 1 tab PO Q8H PRN muscle spasms 12/08/20 10/09/24 Unknown History zolpidem 10 mg tablet 10 mg PO BEDTIME Insomnia 12/08/20 10/09/24 Unknown History cholecalciferol (vitamin D3) 25 25 mcg PO DAILY 11/27/21 10/09/24 Unknown History mcg (1,000 unit) capsule docusate sodium 100 mg capsule 100 mg PO DAILY Constipation 05/28/22 10/09/24 Unknown History betamethasone valerate 0.1 % lotion 1 appl topical BID PRN CTCL flares 10/09/24 10/09/24 Unknown History on scalp clobetasol 0.05 % topical cream 1 appl topical BID PRN CTCL flares 10/09/24 10/09/24 Unknown History dulaglutide 4.5 mg/0.5 mL 4.5 mg subcut FR 10/09/24 10/09/24 10/06/24 History subcutaneous pen injector (Trulicity) erenumab-aooe 140 mg/mL 140 mg subcut QMONTH 10/09/24 10/09/24 09/11/24 History subcutaneous auto-injector (Aimovig Autoinjector) ketoconazole 2 % topical cream 1 appl topical BID PRN CTCL flares 10/09/24 10/09/24 Unknown History nhztpt-edpmcmaa-idunntq 1 cap PO DAILY PRN with snacks 10/09/24 10/09/24 Unknown History 12,000-38,000-60,000 unit capsule,delayed rel (Creon) epxbee-ejbaedem-oxdmoqe 2 cap PO TIDWM 10/09/24 10/09/24 Unknown History 12,000-38,000-60,000 unit capsule,delayed rel (Creon) omeprazole 40 mg capsule,delayed 1 cap PO DAILY@0630 10/09/24 10/10/24 Unknown History release pioglitazone 30 mg tablet 30 mg PO DAILY 10/09/24 10/09/24 Unknown History vitamin B complex 1 tab PO DAILY 10/09/24 10/09/24 Unknown History Physical Exam 2 Vital Signs: Vital Signs: Last Vital Signs Temp 98.4 F 10/10/24 07:16 Pulse 84 10/10/24 07:16 Resp 16 10/10/24 07:16 BP 109/64 10/10/24 07:16 Pulse Ox 93 10/10/24 07:16 O2 Del Method Room Air 10/10/24 07:16 BMI result Body Mass Index 28.7 EXAM: GENERAL: The patient is well developed and nontoxic. VITAL SIGNS:see workflow HEENT: Nonicteric sclerae, PERRLA, EOMI. Oropharynx clear. Moist mucous membranes. Conjunctivae appear well perfused. No thyroid mass. CHEST: Chest wall is nontender. HEART: Regular rate and rhythm without murmurs. LUNGS: Clear to auscultation bilaterally. ABDOMEN: Soft, positive bowel sounds, tender epigastrium, no organomegaly.no flank tenderness SKIN: No rash, no excessive bruising, petechiae, or purpura. NEUROLOGIC: Cranial nerves II-XII intact without motor/sensory deficit. Psych: normal affect Results Labs 10/10/24 05:37 10/10/24 05:37 Labs: Short CBC 10/09/24 10/10/24 Range/Units 18:37 05:37 WBC 5.1 4.1 L (4.8-10.8) X10*3/uL Hgb 11.6 L 11.1 L (14.0-18.0) g/dl Hct 34.6 L 33.2 L (42.0-52.0) % Plt Count 186 186 (160-400) X10*3/uL BMP 10/09/24 10/10/24 18:37 05:37 Sodium 141 141 Potassium 4.1 3.1 L D Chloride 112 H 112 H Carbon Dioxide 21 L 20 L BUN 15 15 Creatinine 1.27 1.09 Calcium 10.1 9.3 D Liver Function 10/09/24 Range/Units 18:37 Total Bilirubin 0.3 (0.0-1.0) mg/dL Direct Bilirubin 0.2 (0.0-0.5) mg/dL AST 37 (5-37) U/L ALT 21 (0-40) U/L Alkaline Phosphatase 53 (39-117) U/L Albumin 4.0 (3.5-5.0) g/dL Urine 10/09/24 Range/Units 18:49 Urine Color Yellow Urine Appearance Clear Urine pH 6.0 (5.0-9.0) Ur Specific [place] 1.020 (1.005-1.025) Urine Protein Negative (Neg-Trace) mg/dL Urine Glucose (UA) Negative (Negative) mg/dL Imaging CT scan - abdomen: Attestation: I personally reviewed and interpreted this imaging study as follows: (dense calcifications in panb head with dilated pd) Assessment and Plan (1) Acute on chronic pancreatitis: Status: Acute Plan 1/ Suspect he has aciute on chronic pancreatic disease possibly from PD stones. he has an apptm coming up at [facility] to discuss further mx. he would prob benefit from Yessica procedure. Alternative would be ERCP with lithotripsy using spyglass and stent placement but this would require several seasons PLAN: 1/ For acute panc, cont with LR, and allow diet as tolerated 2/ analgesia 3/ trial of trental 400 mg TID 4/ low fat diet 5/ genetic testing to r/o other cause 6/ can see for f/u after he sees [facility] Procedures Date of Service Date of Service: 10/10/24
[2024-10-10] MEDS: Lactated Ringers 1,000 ML 100 ML IVCONT ×2 (11:10→20:32)
[2024-10-10 11:20] LABS: Alanine Aminotransferase 17 U/L (0-40); Albumin Level 3.8 g/dL (3.5-5.0); Alkaline Phosphatase 46 U/L (39-117); Aspartate Amino Transferase 34 U/L (5-37); Bilirubin Direct 0.2 mg/dL (0.0-0.5); Bilirubin Total 0.4 mg/dL (0.0-1.0); Magnesium 1.5 mg/dL (1.6-2.6); Total Protein 7.2 g/dL (6.5-8.0)
[2024-10-10 11:50] LABS: Estimated Average Glucose 143 mg/dL; Hemoglobin A1C 181.5413 umol/L; Hemoglobin A1c % 6.6 % (<6.0)
--- NOTE | 2024-10-10 12:03 | MHC.CM.PN ---
PT LIVES WITH GF IS INDEPEDENT HAS OWN [facility] HOME DC PLAN HOME NO SERVIES
[2024-10-10] MEDS: Pentoxifylline ER 400 MG TABLET.ER PO ×2 (14:16→21:59)
[2024-10-10] MEDS: Acetaminophen 325 MG TABLET 650 MG PO (15:12)
--- NOTE | 2024-10-10 15:34 | P.PNIM_ITS ---
Subjective Subjective Date of Service: 10/10/24 Interval History: Possible acute pancreatitis Review of Systems Patient says abdominal pain seems similar, somewhat nauseated, no vomiting today. Physical Exam 2 Vital Signs: Vital Signs: Last Vital Signs Temp 98.4 F 10/10/24 07:16 Pulse 84 10/10/24 07:16 Resp 16 10/10/24 07:16 BP 109/64 10/10/24 07:16 Pulse Ox 93 10/10/24 07:16 O2 Del Method Room Air 10/10/24 07:16 BMI result Body Mass Index 28.7 Appearance: Alert.? Oriented X3.? cvs: rrr, [id number]. res: clear to auscultation ,no rhonchii or wheezing abd: no rebound or guarding ,epigastric discomfort, bs present. ext pulses present , no cyanosis . neuro: axo3 , nonfocal. Objective Data Active Medications Acetaminophen (Acetaminophen 325 Mg Tablet) 650 mg PO Q6H PRN PRN Reason: Pain, Mild 1-3,fever,headache Last Admin: 10/10/24 15:12 Dose: 650 mg Documented By: DANIEL Lipase/Protease/Amylase (Lipase/Prot/Amylase 12/38/60k Capsule.) 1 cap PO DAILY PRN PRN Reason: with snacks Lipase/Protease/Amylase (Lipase/Prot/Amylase 12/38/60k Capsule.) 2 cap PO TIDWM ON LICENSE OF [facility] Last Admin: 10/10/24 12:40 Dose: Not Given Documented By: SACHIN Non-Admin Reason: NPO Betamethasone Dipropion Augmented (Betamethasone Dip Aug 0.05% Cr 15 Gm Tube) 1 appl TOPICAL BID PRN PRN Reason: CTCL flares Calcium Carbonate (Calcium Carbonate 750 Mg Tab.Chew) 750 mg PO Q4H PRN PRN Reason: Heartburn Clotrimazole (Clotrimazole 1 % Cream 15 Gm Tube) 1 appl TOPICAL BID PRN PRN Reason: CTCL flares Dextrose (Dextrose 50 % 25 Gm/50 Ml Syringe) 25 gm IVPUSH Q15M PRN; Protocol PRN Reason: per Hypoglycemia Standing Ord. Docusate Sodium (Docusate Sodium 100 Mg Capsule) 100 mg PO DAILY ON LICENSE OF [facility] Last Admin: 10/10/24 08:58 Dose: 100 mg Documented By: SACHIN Enoxaparin Sodium (Enoxaparin Sodium 40 Mg/0.4 Ml Syringe) 40 mg SUBCUT Q24H ON LICENSE OF [facility] Last Admin: 10/09/24 23:02 Dose: 40 mg Documented By: FAIZAN Glucose (Glucose Gel 15 Gm Gel..Gram.) 15 gm PO Q15M PRN; Protocol PRN Reason: per Hypoglycemia Standing Ord. Hydromorphone HCl (Hydromorphone Hcl 1 Mg/Ml Syringe) 1 mg IVPUSH Q3H PRN; Protocol PRN Reason: Pain, Severe (Pain Scale 7-10) Last Admin: 10/10/24 14:17 Dose: 1 mg Documented By: SHANAE Lactated Ringer's (Lr) 1,000 mls @ 100 mls/hr IVCONT .Q10H ON LICENSE OF [facility] Last Admin: 10/10/24 11:10 Dose: 100 mls/hr Documented By: SACHIN Insulin Human Lispro (Insulin Lispro 100 Unit/Ml 3 Ml Vial) 0 unit SUBCUT Q6H [facility]; Protocol Last Admin: 10/10/24 10:16 Dose: Not Given Documented By: SACHIN Non-Admin Reason: NPO Magnesium Hydroxide (Milk Of Magnesia 30 Ml Oral.Susp) 30 ml PO DAILY PRN PRN Reason: Constipation Melatonin (Melatonin 3 Mg Tablet) 6 mg PO BEDTIME PRN PRN Reason: Insomnia Multivitamins/Vitamin C (Multivitamin Tablet) 1 tab PO DAILY ON LICENSE OF [facility] Last Admin: 10/10/24 08:58 Dose: 1 tab Documented By: SACHIN Non-Formulary Medication (Dulaglutide [Trulicity]) 4.5 mg SUBCUT FR [facility] Non-Formulary Medication (Erenumab-Aooe [Aimovig Autoinjector]) 140 mg SUBCUT Q28D ON LICENSE OF [facility] Non-Formulary Medication (Linaclotide [Linzess]) 145 mcg PO DAILY [facility] Nortriptyline HCl (Nortriptyline Hcl 25 Mg Capsule) 75 mg PO BEDTIME [facility] Ondansetron HCl (Ondansetron Hcl 4 Mg/2 Ml Vial) 4 mg IVPUSH Q8H PRN PRN Reason: Nausea and Vomiting Last Admin: 10/10/24 10:21 Dose: 4 mg Documented By: SACHIN Pantoprazole Sodium (Pantoprazole Sodium 40 Mg/10 Ml Vial) 40 mg IVPUSH BID@0630,1630 ON LICENSE OF [facility] Last Admin: 10/10/24 08:44 Dose: 40 mg Documented By: SACHIN Pentoxifylline (Pentoxifylline Er 400 Mg Tablet.Er) 400 mg PO BID ON LICENSE OF [facility] Last Admin: 10/10/24 14:16 Dose: 400 mg Documented By: SHANAE Sodium Chloride (0.9 % Sodium Chloride Flush 3 Ml Syringe) 3 ml IVFLUSH QSHIFT ON LICENSE OF [facility] Last Admin: 10/10/24 07:13 Dose: Not Given Documented By: SACHIN Non-Admin Reason: IV Running Sumatriptan Succinate (Sumatriptan Succinate 100 Mg Tablet) 100 mg PO DAILY PRN PRN Reason: Migraine Headache Last Admin: 10/10/24 10:28 Dose: 100 mg Documented By: SACHIN Sumatriptan Succinate (Sumatriptan Succinate 100 Mg Tablet) 100 mg PO DAILY PRN PRN Reason: Migraine Headache Tizanidine HCl (Tizanidine Hcl 4 Mg Tablet) 4 mg PO Q8H PRN PRN Reason: muscle spasms Triamcinolone Acetonide (Triamcinolone Acet 0.1 % Cream 15 Gm Tube) 1 appl TOPICAL BID PRN PRN Reason: CTCL flares on scalp Vitamin D (Cholecalciferol (Vitamin D3) 25 Mcg Tablet) 25 mcg PO DAILY ON LICENSE OF [facility] Last Admin: 10/10/24 08:58 Dose: 25 mcg Documented By: SACHIN Zolpidem Tartrate (Zolpidem Tartrate 5 Mg Tablet) 10 mg PO BEDTIME ON LICENSE OF [facility] Labs 10/10/24 05:37 10/10/24 05:37 Labs: Laboratory Results - last 24 hr 10/09/24 10/09/24 10/09/24 18:37 18:49 22:57 MCV 84.8 MCH 28.4 MCHC 33.5 RDW 13.8 Plt Count 186 MPV 12.5 H Immature Gran % (Auto) 0.4 Neut % (Auto) 53.7 Lymph % (Auto) 34.2 Dixon % (Auto) 10.7 Eos % (Auto) 0.6 Baso % (Auto) 0.4 Lymph # (Auto) 1.7 Dixon # (Auto) 0.5 Eos # (Auto) 0.0 Baso # (Auto) 0.0 Abs Immat Gran (auto) 0.02 Absolute Neuts (auto) 2.7 Absolute Nucleated RBC 0.000 Nucleated RBC % (auto) 0.0 Anion Gap 12 Estim Creat Clear Calc 63.4 Estimated GFR 60 POC Glucose 103 Random Glucose 148 H Estimat Average Glucose Hemoglobin A1c % Calcium 10.1 Magnesium 1.2 L* Total Bilirubin 0.3 Direct Bilirubin 0.2 AST 37 ALT 21 Alkaline Phosphatase 53 Total Protein 7.6 Albumin 4.0 Triglycerides 237 H Lipase 49 Urine Color Yellow Urine Appearance Clear Urine pH 6.0 Ur Specific [place] 1.020 Urine Protein Negative Urine Glucose (UA) Negative Urine Ketones Negative Urine Blood Negative Urine Nitrite Negative Ur Leukocyte Esterase Negative Ethyl Alcohol < 10 10/10/24 10/10/24 10/10/24 03:25 05:37 07:21 MCV 83.6 MCH 28.0 MCHC 33.4 RDW 13.9 Plt Count 186 MPV 12.4 Immature Gran % (Auto) 0.5 H Neut % (Auto) 42.4 L Lymph % (Auto) 45.9 H Dixon % (Auto) 10.0 Eos % (Auto) 0.7 Baso % (Auto) 0.5 Lymph # (Auto) 1.9 Dixon # (Auto) 0.4 Eos # (Auto) 0.0 Baso # (Auto) 0.0 Abs Immat Gran (auto) 0.02 Absolute Neuts (auto) 1.8 L Absolute Nucleated RBC 0.000 Nucleated RBC % (auto) 0.0 Anion Gap 12 Estim Creat Clear Calc 73.8 Estimated GFR > 60 POC Glucose 91 91 Random Glucose 102 Estimat Average Glucose 143 Hemoglobin A1c % 6.6 H Calcium 9.3 D Magnesium 1.5 L Total Bilirubin 0.4 Direct Bilirubin 0.2 AST 34 ALT 17 Alkaline Phosphatase 46 Total Protein 7.2 Albumin 3.8 Triglycerides Lipase Urine Color Urine Appearance Urine pH Ur Specific [place] Urine Protein Urine Glucose (UA) Urine Ketones Urine Blood Urine Nitrite Ur Leukocyte Esterase Ethyl Alcohol 10/10/24 10:15 MCV MCH MCHC RDW Plt Count MPV Immature Gran % (Auto) Neut % (Auto) Lymph % (Auto) Dixon % (Auto) Eos % (Auto) Baso % (Auto) Lymph # (Auto) Dixon # (Auto) Eos # (Auto) Baso # (Auto) Abs Immat Gran (auto) Absolute Neuts (auto) Absolute Nucleated RBC Nucleated RBC % (auto) Anion Gap Estim Creat Clear Calc Estimated GFR POC Glucose 91 Random Glucose Estimat Average Glucose Hemoglobin A1c % Calcium Magnesium Total Bilirubin Direct Bilirubin AST ALT Alkaline Phosphatase Total Protein Albumin Triglycerides Lipase Urine Color Urine Appearance Urine pH Ur Specific [place] Urine Protein Urine Glucose (UA) Urine Ketones Urine Blood Urine Nitrite Ur Leukocyte Esterase Ethyl Alcohol Assessment and Plan (1) Acute on chronic pancreatitis: Status: Acute (2) Nausea: Status: Acute Assessment and Plan: 54-year-old male with a past medical history significant for chronic pancreatitis, type 2 diabetes, chronic constipation, and migraines who presented to the ED due to worsening upper abdominal pain times 10 days. acute on chronic pancreatitis WBC normal, vitals stable, no sepsis ct abd: with acute on chronic pancreatitis triglycerides mildly elevated,lipase 49 abd pain similar plan: NPO, IVF,hold trulicity - monitor CBC and BMP Gi eval acute hypokalemia and hypomagnesemia : iv replacements added. T2DM hba1c is 6.6 - stop trulicity as above - sliding scale insulin chronic constipation- continue home meds when appropriate Full code VTE prophylaxis: Lovenox Patient with acute on chronic pancreatitis requiring admission- IV pain management, fluids and replace electrolytes aggressive and moniter reanl function/electrolytes. Quality Stroke Does the patient have a stroke diagnosis?: No VTE Prior VTE?: No VTE Risk Level:: Medical - moderate - high VTE Device Contraindication: Treatment Not Indicated VTE Drug Contraindication: N/A - Med Ordered
[2024-10-10] MEDS: Magnesium Sulfate/D5W 1 GM/100 ML PIGGYBACK IV (16:19)
[2024-10-10 16:43] LABS: Glucose, Whole Blood 75 mg/dL (60-115)
[2024-10-10] MEDS: Lipase/Prot/Amylase 12/38/60K CAPSULE.DR 2 CAP PO (18:15)
[2024-10-10 20:37] LABS: Glucose, Whole Blood 90 mg/dL (60-115)
[2024-10-10] MEDS: Nortriptyline HCl 25 MG CAPSULE 75 MG PO (21:59)
[2024-10-10] MEDS: Zolpidem Tartrate 5 MG TABLET 10 MG PO (21:59)
[2024-10-10] MEDS: Enoxaparin Sodium 40 MG/0.4 ML SYRINGE SUBCUT (22:01)
[2024-10-11] MEDS: Melatonin 3 MG TABLET 6 MG PO (02:11)
[2024-10-11 02:32] VITALS: RESP 16
[2024-10-11] MEDS: HYDROmorphone HCl 1 MG/ML SYRINGE IVPUSH ×7 (02:32→21:53)
[2024-10-11] MEDS: Pantoprazole Sodium 40 MG/10 ML VIAL IVPUSH ×2 (05:40→17:02)
[2024-10-11 05:41] VITALS: RESP 17
[2024-10-11] MEDS: Lactated Ringers 1,000 ML 100 ML IVCONT ×2 (05:41→17:02)
[2024-10-11 07:40] VITALS: BP 120/67; PULSE 87; RESP 16; TEMP 36.3; O2SAT 96
[2024-10-11 07:54] LABS: Glucose, Whole Blood 94 mg/dL (60-115)
[2024-10-11] MEDS: Docusate Sodium 100 MG CAPSULE PO (08:57)
[2024-10-11] MEDS: Multivitamin TABLET 1 TAB PO (08:57)
[2024-10-11] MEDS: Lipase/Prot/Amylase 12/38/60K CAPSULE.DR 2 CAP PO ×3 (08:57→17:03)
[2024-10-11] MEDS: Pentoxifylline ER 400 MG TABLET.ER PO ×2 (08:57→22:00)
[2024-10-11] MEDS: Cholecalciferol (Vitamin D3) 25 MCG TABLET PO (08:57)
[2024-10-11] MEDS: 0.9 % Sodium Chloride Flush 3 ML SYRINGE IVFLUSH (08:59)
[2024-10-11] MEDS: ondansetron HCL 4 MG/2 ML VIAL IVPUSH ×2 (09:05→21:56)
[2024-10-11] MEDS: SUMAtriptan succinate 100 MG TABLET PO (11:28)
[2024-10-11 11:46] LABS: Glucose, Whole Blood 120 mg/dL (60-115)
[2024-10-11] MEDS: TiZANidine HCL 4 MG TABLET PO (11:51)
--- NOTE | 2024-10-11 15:15 | HO.PM.IMPN ---
Subjective Subjective Date of Service: 10/11/24 Interval History: acute pancreatitis Review of Systems abd pain somewhat similar no nausea says abd pain even with clear liquids Physical Exam Vital Signs: Vital Signs: Last Vital Signs Temp 97.3 F 10/11/24 07:40 Pulse 87 10/11/24 07:40 Resp 16 10/11/24 07:40 BP 120/67 10/11/24 07:40 Pulse Ox 96 10/11/24 07:40 O2 Del Method Room Air 10/11/24 07:40 BMI result Body Mass Index 28.7 Appearance: Alert.? Oriented X3.? cvs: rrr, [id number]. res: clear to auscultation ,no rhonchii or wheezing abd: no rebound or guarding ,epigastric discomfort, bs present. ext pulses present , no cyanosis . neuro: axo3 , nonfocal. Objective Data Active Medications Acetaminophen (Acetaminophen 325 Mg Tablet) 975 mg PO Q6H PRN PRN Reason: Pain, Mild 1-3,fever,headache Lipase/Protease/Amylase (Lipase/Prot/Amylase 12/38/60k Capsule.) 1 cap PO DAILY PRN PRN Reason: with snacks Lipase/Protease/Amylase (Lipase/Prot/Amylase 12/38/60k Capsule.) 2 cap PO TIDWM [facility] Last Admin: 10/11/24 11:53 Dose: 2 cap Documented By: JOSE MIGUEL Betamethasone Dipropion Augmented (Betamethasone Dip Aug 0.05% Cr 15 Gm Tube) 1 appl TOPICAL BID PRN PRN Reason: CTCL flares Calcium Carbonate (Calcium Carbonate 750 Mg Tab.Chew) 750 mg PO Q4H PRN PRN Reason: Heartburn Clotrimazole (Clotrimazole 1 % Cream 15 Gm Tube) 1 appl TOPICAL BID PRN PRN Reason: CTCL flares Dextrose (Dextrose 50 % 25 Gm/50 Ml Syringe) 25 gm IVPUSH Q15M PRN; Protocol PRN Reason: per Hypoglycemia Standing Ord. Docusate Sodium (Docusate Sodium 100 Mg Capsule) 100 mg PO DAILY [facility] Last Admin: 10/11/24 08:57 Dose: 100 mg Documented By: JOSE MIGUEL Enoxaparin Sodium (Enoxaparin Sodium 40 Mg/0.4 Ml Syringe) 40 mg SUBCUT Q24H [facility] Last Admin: 10/10/24 22:01 Dose: 40 mg Documented By: STEPHANIE Glucose (Glucose Gel 15 Gm Gel..Gram.) 15 gm PO Q15M PRN; Protocol PRN Reason: per Hypoglycemia Standing Ord. Hydromorphone HCl (Hydromorphone Hcl 1 Mg/Ml Syringe) 1 mg IVPUSH Q3H PRN; Protocol PRN Reason: Pain, Severe (Pain Scale 7-10) Last Admin: 10/11/24 15:12 Dose: 1 mg Documented By: JOSE MIGUEL Lactated Ringer's (Lr) 1,000 mls @ 100 mls/hr IVCONT .Q10H [facility] Last Admin: 10/11/24 05:41 Dose: 100 mls/hr Documented By: STEPHANIE Insulin Human Lispro (Insulin Lispro 100 Unit/Ml 3 Ml Vial) 0 unit SUBCUT QIDACHS [facility]; Protocol Last Admin: 10/11/24 11:49 Dose: Not Given Documented By: JOSE MIGUEL Non-Admin Reason: No Insulin Coverage Lidocaine (Lidocaine 4 % Patch Adh..Patch) 1 patch TRANSDERMA DAILY [facility]; Protocol Last Admin: 10/11/24 08:59 Dose: Not Given Documented By: JOSE MIGUEL Non-Admin Reason: Patient Refused Magnesium Hydroxide (Milk Of Magnesia 30 Ml Oral.Susp) 30 ml PO DAILY PRN PRN Reason: Constipation Melatonin (Melatonin 3 Mg Tablet) 6 mg PO BEDTIME PRN PRN Reason: Insomnia Last Admin: 10/11/24 02:11 Dose: 6 mg Documented By: STEPHANIE Multivitamins/Vitamin C (Multivitamin Tablet) 1 tab PO DAILY [facility] Last Admin: 10/11/24 08:57 Dose: 1 tab Documented By: JOSE MIGUEL Non-Formulary Medication (Erenumab-Aooe [Aimovig Autoinjector]) 140 mg SUBCUT Q28D [facility] Non-Formulary Medication (Linaclotide [Linzess]) 145 mcg PO DAILY [facility] Nortriptyline HCl (Nortriptyline Hcl 25 Mg Capsule) 75 mg PO BEDTIME [facility] Last Admin: 10/10/24 21:59 Dose: 75 mg Documented By: STEPHANIE Ondansetron HCl (Ondansetron Hcl 4 Mg/2 Ml Vial) 4 mg IVPUSH Q8H PRN PRN Reason: Nausea and Vomiting Last Admin: 10/11/24 09:05 Dose: 4 mg Documented By: JOSE MIGUEL Pantoprazole Sodium (Pantoprazole Sodium 40 Mg/10 Ml Vial) 40 mg IVPUSH BID@0630,1630 [facility] Last Admin: 10/11/24 05:40 Dose: 40 mg Documented By: STEPHANIE Pentoxifylline (Pentoxifylline Er 400 Mg Tablet.Er) 400 mg PO BID [facility] Last Admin: 10/11/24 08:57 Dose: 400 mg Documented By: JOSE MIGUEL Sodium Chloride (0.9 % Sodium Chloride Flush 3 Ml Syringe) 3 ml IVFLUSH QSHIFT [facility] Last Admin: 10/11/24 08:59 Dose: 3 ml Documented By: JOSE MIGUEL Sumatriptan Succinate (Sumatriptan Succinate 100 Mg Tablet) 100 mg PO DAILY PRN PRN Reason: Migraine Headache Last Admin: 10/11/24 11:28 Dose: 100 mg Documented By: JOSE MIGUEL Sumatriptan Succinate (Sumatriptan Succinate 100 Mg Tablet) 100 mg PO DAILY PRN PRN Reason: Migraine Headache Tizanidine HCl (Tizanidine Hcl 4 Mg Tablet) 4 mg PO Q8H PRN PRN Reason: muscle spasms Last Admin: 10/11/24 11:51 Dose: 4 mg Documented By: JOSE MIGUEL Triamcinolone Acetonide (Triamcinolone Acet 0.1 % Cream 15 Gm Tube) 1 appl TOPICAL BID PRN PRN Reason: CTCL flares on scalp Vitamin D (Cholecalciferol (Vitamin D3) 25 Mcg Tablet) 25 mcg PO DAILY [facility] Last Admin: 10/11/24 08:57 Dose: 25 mcg Documented By: JOSE MIGUEL Zolpidem Tartrate (Zolpidem Tartrate 5 Mg Tablet) 10 mg PO BEDTIME [facility] Last Admin: 10/10/24 21:59 Dose: 10 mg Documented By: STEPHANIE Labs 10/10/24 05:37 10/10/24 05:37 Labs: Laboratory Results - last 24 hr 10/10/24 10/10/24 10/11/24 16:08 20:32 07:43 POC Glucose 75 90 94 10/11/24 11:17 POC Glucose 120 H Assessment and Plan (1) Acute on chronic pancreatitis: Status: Acute Assessment and Plan: 54-year-old male with a past medical history significant for chronic pancreatitis, type 2 diabetes, chronic constipation, and migraines who presented to the ED due to worsening upper abdominal pain times 10 days. acute on chronic pancreatitis WBC normal, vitals stable, no sepsis ct abd: with acute on chronic pancreatitis triglycerides mildly elevated,lipase 49 abd pain similar plan: NPO, IVF,hold trulicity - monitor CBC and BMP Gi eval acute hypokalemia and hypomagnesemia : iv replacements given will check mag/potassium levels. T2DM hba1c is 6.6 - stop trulicity as above - sliding scale insulin chronic constipation- continue home meds when appropriate Full code VTE prophylaxis: Lovenox Patient with acute on chronic pancreatitis requiring admission- IV pain management, fluids and replace electrolytes aggressive and moniter reanl function/electrolytes. Quality Stroke Does the patient have a stroke diagnosis?: No VTE Prior VTE?: No VTE Risk Level:: Medical - moderate - high VTE Device Contraindication: Treatment Not Indicated VTE Drug Contraindication: N/A - Med Ordered
[2024-10-11 15:26] VITALS: BP 96/56; PULSE 69; RESP 17; TEMP 36.3; O2SAT 92
--- NOTE | 2024-10-11 15:34 | P.PNGI_ITS ---
Subjective Subjective Date of Service: 10/11/24 Interval History: still same abdominal pain, food hurts, liquids ok mild nausea no fever no evidence of SIRS or shock Critical Care Time (minutes): 0 Physical Exam 2 Vital Signs: Vital Signs: Last Vital Signs Temp 97.3 F 10/11/24 15:26 Pulse 69 10/11/24 15:26 Resp 17 10/11/24 15:26 BP 96/56 L 10/11/24 15:26 Pulse Ox 92 10/11/24 15:26 O2 Del Method Room Air 10/11/24 15:26 BMI result Body Mass Index 28.7 EXAM: GENERAL: The patient is well developed and nontoxic. VITAL SIGNS:see workflow HEENT: Nonicteric sclerae, PERRLA, EOMI. Oropharynx clear. Moist mucous membranes. Conjunctivae appear well perfused. No thyroid mass. CHEST: Chest wall is nontender. HEART: Regular rate and rhythm without murmurs. LUNGS: Clear to auscultation bilaterally. ABDOMEN: Soft, positive bowel sounds, tender epigastrium, no organomegaly.no flank tenderness SKIN: No rash, no excessive bruising, petechiae, or purpura. NEUROLOGIC: Cranial nerves II-XII intact without motor/sensory deficit. Psych: normal affect Objective Data Labs 10/10/24 05:37 10/10/24 05:37 Labs: Laboratory Results - last 24 hr 10/10/24 10/10/24 10/11/24 16:08 20:32 07:43 POC Glucose 75 90 94 10/11/24 11:17 POC Glucose 120 H Procedures Date of Service Date of Service: 10/11/24 Progress Note: A&P Assessment and plan (1) Acute on chronic pancreatitis: Status: Acute Plan 1/ Acute on chronic pancreatitis, suspected due to PD stones and debris PLAN: 1/ cont with trental 2/ cont with LR 3/ advance diet as tolerated, low fat 4/ o/p f/u to discuss ERCP and stent with lithotripsy vs Yessica procedure as most debris is in pancreas head Time Spent With Patient Time: Total time managing care of this patient today ____ minutes. Quality Stroke Does the patient have a stroke diagnosis?: No VTE Prior VTE?: No VTE Risk Level:: Medical - moderate - high VTE Device Contraindication: Treatment Not Indicated VTE Drug Contraindication: N/A - Med Ordered
[2024-10-11 16:13] LABS: Glucose, Whole Blood 117 mg/dL (60-115)
[2024-10-11 16:30] LABS: Magnesium 1.5 mg/dL (1.6-2.6); Potassium 3.7 mmol/L (3.3-5.1)
--- NOTE | 2024-10-11 19:29 | PC.NURSE ---
Patient A&Ox4, on RA sats above 92%, lungs clear, patient able to ambulate independently. C/o 10/10 pain to abdomen requesting dilaudid aprox every 3hrs with good effect. Patient requested zofran for nausea once this shift with good effect. POC below 150 no need for insulin coverage. Continuos IVF - LR at 100, patient on clear liquid diet tolerating good. No skin problem noted. Patient requested to take a shower and was able to do so with set up only.
[2024-10-11 20:36] LABS: Glucose, Whole Blood 102 mg/dL (60-115)
[2024-10-11 21:52] VITALS: BP 112/67; PULSE 80; RESP 16; O2SAT 97
[2024-10-11] MEDS: Enoxaparin Sodium 40 MG/0.4 ML SYRINGE SUBCUT (21:58)
[2024-10-11] MEDS: Nortriptyline HCl 25 MG CAPSULE 75 MG PO (22:00)
[2024-10-11] MEDS: Zolpidem Tartrate 5 MG TABLET 10 MG PO (22:00)
[2024-10-11 23:35] VITALS: BP 101/57; PULSE 83; RESP 18; TEMP 36.9; O2SAT 93
[2024-10-12] MEDS: HYDROmorphone HCl 1 MG/ML SYRINGE IVPUSH ×4 (02:21→13:16)
[2024-10-12] MEDS: Lactated Ringers 1,000 ML 100 ML IVCONT (02:21)
[2024-10-12] MEDS: Pantoprazole Sodium 40 MG/10 ML VIAL IVPUSH ×2 (06:08→16:41)
[2024-10-12 07:43] VITALS: BP 116/67; PULSE 99; RESP 14; TEMP 36.4; O2SAT 96
[2024-10-12 07:51] LABS: Glucose, Whole Blood 88 mg/dL (60-115)
[2024-10-12] MEDS: Lipase/Prot/Amylase 12/38/60K CAPSULE.DR 2 CAP PO ×2 (09:34→18:08)
[2024-10-12] MEDS: Multivitamin TABLET 1 TAB PO (09:34)
[2024-10-12] MEDS: Cholecalciferol (Vitamin D3) 25 MCG TABLET PO (09:34)
[2024-10-12] MEDS: Docusate Sodium 100 MG CAPSULE PO (09:34)
[2024-10-12] MEDS: Pentoxifylline ER 400 MG TABLET.ER PO ×2 (09:34→20:26)
[2024-10-12] MEDS: TiZANidine HCL 4 MG TABLET PO (09:44)
[2024-10-12] MEDS: SUMAtriptan succinate 100 MG TABLET PO (09:44)
[2024-10-12 11:22] LABS: Glucose, Whole Blood 134 mg/dL (60-115)
--- NOTE | 2024-10-12 12:51 | HO.PM.IMPN ---
Subjective Subjective Date of Service: 10/12/24 Interval History: acute pancreatitis Review of Systems abd pain seems similar no nausea Physical Exam Vital Signs: Vital Signs: Last Vital Signs Temp 97.6 F 10/12/24 07:43 Pulse 99 10/12/24 07:43 Resp 14 10/12/24 07:43 BP 116/67 10/12/24 07:43 Pulse Ox 96 10/12/24 07:43 O2 Del Method Room Air 10/12/24 07:43 BMI result Body Mass Index 28.7 Appearance: Alert.? Oriented X3.? cvs: rrr, [id number]. res: clear to auscultation ,no rhonchii or wheezing abd: no rebound or guarding ,epigastric discomfort, bs present. ext pulses present , no cyanosis . neuro: axo3 , nonfocal. Objective Data Active Medications Acetaminophen (Acetaminophen 325 Mg Tablet) 975 mg PO Q6H PRN PRN Reason: Pain, Mild 1-3,fever,headache Lipase/Protease/Amylase (Lipase/Prot/Amylase 12/38/60k Capsule.) 2 cap PO TIDWM [facility] Last Admin: 10/12/24 09:34 Dose: 2 cap Documented By: SACHIN Betamethasone Dipropion Augmented (Betamethasone Dip Aug 0.05% Cr 15 Gm Tube) 1 appl TOPICAL BID PRN PRN Reason: CTCL flares Calcium Carbonate (Calcium Carbonate 750 Mg Tab.Chew) 750 mg PO Q4H PRN PRN Reason: Heartburn Capsaicin (Capsaicin 0.025% Cream 60 Gm Tube) 1 appl TOPICAL QID PRN; Protocol PRN Reason: Pain, Mild (Pain Scale 1-3) Clotrimazole (Clotrimazole 1 % Cream 15 Gm Tube) 1 appl TOPICAL BID PRN PRN Reason: CTCL flares Dextrose (Dextrose 50 % 25 Gm/50 Ml Syringe) 25 gm IVPUSH Q15M PRN; Protocol PRN Reason: per Hypoglycemia Standing Ord. Docusate Sodium (Docusate Sodium 100 Mg Capsule) 100 mg PO DAILY [facility] Last Admin: 10/12/24 09:34 Dose: 100 mg Documented By: SACHIN Enoxaparin Sodium (Enoxaparin Sodium 40 Mg/0.4 Ml Syringe) 40 mg SUBCUT Q24H [facility] Last Admin: 10/11/24 21:58 Dose: 40 mg Documented By: ORA Gabapentin (Gabapentin 100 Mg Capsule) 100 mg PO TID [facility] Glucose (Glucose Gel 15 Gm Gel..Gram.) 15 gm PO Q15M PRN; Protocol PRN Reason: per Hypoglycemia Standing Ord. Hydromorphone HCl (Hydromorphone Hcl 1 Mg/Ml Syringe) 1 mg IVPUSH Q3H PRN; Protocol PRN Reason: Pain, Severe (Pain Scale 7-10) Last Admin: 10/12/24 09:34 Dose: 1 mg Documented By: SACHIN Insulin Human Lispro (Insulin Lispro 100 Unit/Ml 3 Ml Vial) 0 unit SUBCUT QIDACHS [facility]; Protocol Last Admin: 10/12/24 11:25 Dose: Not Given Documented By: SACHIN Non-Admin Reason: No Insulin Coverage Lidocaine (Lidocaine 4 % Patch Adh..Patch) 1 patch TRANSDERMA DAILY [facility]; Protocol Last Admin: 10/12/24 09:35 Dose: Not Given Documented By: SACHIN Non-Admin Reason: Patient Refused Magnesium Hydroxide (Milk Of Magnesia 30 Ml Oral.Susp) 30 ml PO DAILY PRN PRN Reason: Constipation Melatonin (Melatonin 3 Mg Tablet) 6 mg PO BEDTIME PRN PRN Reason: Insomnia Last Admin: 10/11/24 02:11 Dose: 6 mg Documented By: STEPHANIE Multivitamins/Vitamin C (Multivitamin Tablet) 1 tab PO DAILY [facility] Last Admin: 10/12/24 09:34 Dose: 1 tab Documented By: SACHIN Non-Formulary Medication (Erenumab-Aooe [Aimovig Autoinjector]) 140 mg SUBCUT Q28D [facility] Non-Formulary Medication (Linaclotide [Linzess]) 145 mcg PO DAILY [facility] Nortriptyline HCl (Nortriptyline Hcl 25 Mg Capsule) 75 mg PO BEDTIME [facility] Last Admin: 10/11/24 22:00 Dose: 75 mg Documented By: ORA Ondansetron HCl (Ondansetron Hcl 4 Mg/2 Ml Vial) 4 mg IVPUSH Q8H PRN PRN Reason: Nausea and Vomiting Last Admin: 10/11/24 21:56 Dose: 4 mg Documented By: ORA Pantoprazole Sodium (Pantoprazole Sodium 40 Mg/10 Ml Vial) 40 mg IVPUSH BID@0630,1630 [facility] Last Admin: 10/12/24 06:08 Dose: 40 mg Documented By: ORA Pentoxifylline (Pentoxifylline Er 400 Mg Tablet.Er) 400 mg PO BID [facility] Last Admin: 10/12/24 09:34 Dose: 400 mg Documented By: SACHIN Sodium Chloride (0.9 % Sodium Chloride Flush 3 Ml Syringe) 3 ml IVFLUSH QSHIFT [facility] Last Admin: 10/12/24 08:02 Dose: Not Given Documented By: SACHIN Non-Admin Reason: IV Running Sumatriptan Succinate (Sumatriptan Succinate 100 Mg Tablet) 100 mg PO DAILY PRN PRN Reason: Migraine Headache Last Admin: 10/12/24 09:44 Dose: 100 mg Documented By: SACHIN Sumatriptan Succinate (Sumatriptan Succinate 100 Mg Tablet) 100 mg PO DAILY PRN PRN Reason: Migraine Headache Tizanidine HCl (Tizanidine Hcl 4 Mg Tablet) 4 mg PO Q8H PRN PRN Reason: muscle spasms Last Admin: 10/12/24 09:44 Dose: 4 mg Documented By: SACHIN Triamcinolone Acetonide (Triamcinolone Acet 0.1 % Cream 15 Gm Tube) 1 appl TOPICAL BID PRN PRN Reason: CTCL flares on scalp Vitamin D (Cholecalciferol (Vitamin D3) 25 Mcg Tablet) 25 mcg PO DAILY [facility] Last Admin: 10/12/24 09:34 Dose: 25 mcg Documented By: SACHIN Zolpidem Tartrate (Zolpidem Tartrate 5 Mg Tablet) 10 mg PO BEDTIME [facility] Last Admin: 10/11/24 22:00 Dose: 10 mg Documented By: ORA Labs 10/10/24 05:37 10/11/24 15:52 Labs: Laboratory Results - last 24 hr 10/11/24 10/11/24 10/11/24 15:52 15:53 20:26 POC Glucose 117 H 102 Magnesium 1.5 L 10/12/24 10/12/24 07:46 11:19 POC Glucose 88 134 H Magnesium Assessment and Plan (1) Acute on chronic pancreatitis: Status: Acute Assessment and Plan: 54-year-old male with a past medical history significant for chronic pancreatitis, type 2 diabetes, chronic constipation, and migraines who presented to the ED due to worsening upper abdominal pain times 10 days. acute on chronic pancreatitis WBC normal, vitals stable, no sepsis ct abd: with acute on chronic pancreatitis triglycerides mildly elevated,lipase 49 abd pain similar plan: Gi eval noted -clear liquid trial,pain meds ,pnetoxyphylin and added kreon acute hypokalemia and hypomagnesemia : hypokalemia improved,added iv/po magnesium. T2DM hba1c is 6.6 - stop trulicity as above - sliding scale insulin chronic constipation- continue home meds when appropriate Full code VTE prophylaxis: Lovenox Patient with acute on chronic pancreatitis requiring admission- IV pain management, fluids and replace electrolytes aggressive and moniter reanl function/electrolytes. Quality Stroke Does the patient have a stroke diagnosis?: No VTE Prior VTE?: No VTE Risk Level:: Medical - moderate - high VTE Device Contraindication: Treatment Not Indicated VTE Drug Contraindication: N/A - Med Ordered
[2024-10-12] MEDS: Magnesium Sulfate/H2O 2 GM/50 ML PIGGYBACK IV (13:16)
[2024-10-12 15:39] VITALS: BP 83/53; PULSE 73; RESP 14; TEMP 36.7; O2SAT 91
[2024-10-12 16:21] LABS: Glucose, Whole Blood 176 mg/dL (60-115)
[2024-10-12] MEDS: 0.9 % Sodium Chloride 1,000 ML 999 ML IVCONT ×2 (16:25→17:35)
[2024-10-12] MEDS: Albumin Human 25 % 50 ML 100 ML IV ×4 (16:25→18:27)
[2024-10-12] MEDS: Insulin Lispro 100 UNIT/ML 3 ML VIAL SUBCUT (16:39)
[2024-10-12 17:35] LABS: Hemoglobin 9.5 g/dl (14.0-18.0); Mean Corpuscular HGB Conc 33.9 g/dl (31.0-36.0); Mean Corpuscular Hemoglobin 28.6 pg (27.0-33.0); Mean Corpuscular Volume 84.3 fL (80.0-98.0); Mean Platelet Volume 12.7 fL (9.4-12.4); Platelet Count 135 X10*3/uL (160-400); Red Blood Count 3.32 X10*6/uL (4.60-5.80); White Blood Count 3.1 X10*3/uL (4.8-10.8)
--- NOTE | 2024-10-12 17:39 | P.PNGI_ITS ---
Subjective Subjective Date of Service: 10/12/24 Interval History: still has abdominal pain trying to eat but has diarrhea, onlyon low dose creon no rectal bleeding, melena no vomiting appetite fair Critical Care Time (minutes): 0 Physical Exam 2 Vital Signs: Vital Signs: Last Vital Signs Temp 98.0 F 10/12/24 15:39 Pulse 73 10/12/24 15:39 Resp 14 10/12/24 15:39 BP 83/53 L 10/12/24 15:39 Pulse Ox 91 L 10/12/24 15:39 O2 Del Method Room Air 10/12/24 15:39 BMI result Body Mass Index 28.7 EXAM: GENERAL: The patient is well developed and nontoxic. VITAL SIGNS:see workflow HEENT: Nonicteric sclerae, PERRLA, EOMI. Oropharynx clear. Moist mucous membranes. Conjunctivae appear well perfused. No thyroid mass. CHEST: Chest wall is nontender. HEART: Regular rate and rhythm without murmurs. LUNGS: Clear to auscultation bilaterally. ABDOMEN: Soft, positive bowel sounds, tender epigastrium, no organomegaly.no flank tenderness SKIN: No rash, no excessive bruising, petechiae, or purpura. NEUROLOGIC: Cranial nerves II-XII intact without motor/sensory deficit. Psych: normal affect Objective Data Labs 10/10/24 05:37 10/11/24 15:52 Labs: Laboratory Results - last 24 hr 10/11/24 10/12/24 10/12/24 20:26 07:46 11:19 POC Glucose 102 88 134 H 10/12/24 16:15 POC Glucose 176 H Procedures Date of Service Date of Service: 10/12/24 Progress Note: A&P Assessment and plan (1) Acute on chronic pancreatitis: Status: Acute Plan 1/ increase creon dose with meals 2/ cont with fluids and pain meds, trental 3/ repeat imaging if ongoing pain 4/ cont ppi as well Time Spent With Patient Time: Total time managing care of this patient today ____ minutes. Quality Stroke Does the patient have a stroke diagnosis?: No VTE Prior VTE?: No VTE Risk Level:: Medical - moderate - high VTE Device Contraindication: Treatment Not Indicated VTE Drug Contraindication: N/A - Med Ordered
[2024-10-12 17:40] VITALS: BP 98/55; PULSE 77; RESP 16; TEMP 36.9; O2SAT 96
[2024-10-12 17:42] LABS: Anion Gap 10 (12-20); Blood Urea Nitrogen 7 mg/dL (9-16); Calcium 8.6 mg/dL (8.4-10.2); Carbon Dioxide 22 mmol/L (22-29); Chloride 114 mmol/L (96-108); Creatinine Clr Calc Pharmacy 84.7; Estimated Glomerular Filt Rate > 60; Glucose Random 119 mg/dL (60-115); Magnesium 1.8 mg/dL (1.6-2.6); Potassium 4.1 mmol/L (3.3-5.1); Sodium 142 mmol/L (135-145)
--- NOTE | 2024-10-12 17:42 | PC.NURSE ---
Patient was found to be hypotensive. MD notified and came to bedside and assessed patient. 2000ml bolus was ordered and albumin 100ml x4, as well as tele monitoring, and transfer to tele unit. Pt was transfered to unit at 17:35.
[2024-10-12] MEDS: Magnesium Oxide 400 MG TABLET PO (18:08)
[2024-10-12] MEDS: Acetaminophen 325 MG TABLET 975 MG PO (19:25)
[2024-10-12] MEDS: 0.9 % Sodium Chloride 1,000 ML 125 ML IVCONT (19:27)
--- NOTE | 2024-10-12 19:34 | PC.NURSE ---
pt came up to floor at 1735. upon assessment, pt is axox4 on RA, able to make needs known. BP is improving as 98/55. pt receiving 3rd bag of IV albumin and 2nd bag of IV NS bolus. MEdications given per oct. at 1845 pt c/o headache and some numbness around his head. MD notified and Md came to see pt. ordered Ct of head, IV fluid at 125ml/hr, tylenol 975mg given per oct for 10/10 migraine headache. pt is ok to take it at the moment. Aimovig injection pending per pharmacy. trport given to incoming RN and will cont to monitor pt ass MD verbalized to check BP every 2 hours for tonight. pt is aware of the plan and agreeable to the plan at this time.
[2024-10-12 19:53] VITALS: BP 106/57; PULSE 80; RESP 18; TEMP 207.9; TEMP 97.7; O2SAT 93
[2024-10-12 20:07] LABS: Glucose, Whole Blood 103 mg/dL (60-115)
[2024-10-12] MEDS: Nortriptyline HCl 25 MG CAPSULE 75 MG PO (20:26)
[2024-10-12] MEDS: 0.9 % Sodium Chloride Flush 3 ML SYRINGE IVFLUSH (20:27)
[2024-10-12] MEDS: ondansetron HCL 4 MG/2 ML VIAL IVPUSH (20:34)
[2024-10-12] MEDS: ERENUMAB AOOE 140 MG/ML SUBCUT (21:03)
[2024-10-12] MEDS: AUTO INJECTOR SUBCUT (21:03)
[2024-10-12] MEDS: iohexoL 350 MG/ML 100 ML INFUS..BTL 85 ML IV (22:38)
[2024-10-12] MEDS: Zolpidem Tartrate 5 MG TABLET 10 MG PO (22:51)
[2024-10-12 23:28] VITALS: BP 115/59; PULSE 70; RESP 18; TEMP 36.2; O2SAT 98
[2024-10-13] VITALS (8 sets, daily range): BP systolic 94–135; BP diastolic 56–94; PULSE 71–99; RESP 12–20; TEMP 36.3–37.1; O2SAT 94–96
[2024-10-13] MEDS: 0.9 % Sodium Chloride 1,000 ML 125 ML IVCONT ×3 (03:58→17:56)
[2024-10-13] MEDS: Pantoprazole Sodium 40 MG/10 ML VIAL IVPUSH (05:33)
[2024-10-13] MEDS: ondansetron HCL 4 MG/2 ML VIAL IVPUSH ×2 (05:37→20:18)
[2024-10-13 07:30] LABS: Glucose, Whole Blood 97 mg/dL (60-115)
[2024-10-13 07:40] LABS: Anion Gap 10 (12-20); Blood Urea Nitrogen 6 mg/dL (9-16); Calcium 9.3 mg/dL (8.4-10.2); Carbon Dioxide 22 mmol/L (22-29); Chloride 115 mmol/L (96-108); Creatinine Clr Calc Pharmacy 91.4; Estimated Glomerular Filt Rate > 60; Glucose Random 97 mg/dL (60-115); Magnesium 1.6 mg/dL (1.6-2.6); Potassium 3.3 mmol/L (3.3-5.1); Sodium 144 mmol/L (135-145)
[2024-10-13] MEDS: Acetaminophen 325 MG TABLET 975 MG PO ×2 (07:46→16:10)
[2024-10-13] MEDS: Magnesium Oxide 400 MG TABLET PO ×2 (07:46→16:10)
[2024-10-13] MEDS: TiZANidine HCL 4 MG TABLET PO (07:46)
[2024-10-13] MEDS: Cholecalciferol (Vitamin D3) 25 MCG TABLET PO (07:46)
[2024-10-13] MEDS: Pentoxifylline ER 400 MG TABLET.ER PO ×2 (07:46→20:18)
[2024-10-13] MEDS: Lidocaine 4 % Patch ADH..PATCH 1 PATCH TRANSDERMA (07:46)
[2024-10-13] MEDS: Multivitamin TABLET 1 TAB PO (07:46)
[2024-10-13] MEDS: Lipase/Prot/Amylase 12/38/60K CAPSULE.DR 2 CAP PO ×3 (07:46→16:10)
[2024-10-13] MEDS: 0.9 % Sodium Chloride Flush 3 ML SYRINGE IVFLUSH ×2 (07:47→16:15)
--- NOTE | 2024-10-13 09:01 | HO.PM.IMPN ---
Subjective Subjective Date of Service: 10/13/24 Interval History: abd pain/pancreatitis Review of Systems abd pain seems somewhat improivng trail of full liquids Physical Exam Vital Signs: Vital Signs: Last Vital Signs Temp 98.3 F 10/13/24 08:00 Pulse 78 10/13/24 08:00 Resp 20 10/13/24 08:00 BP 123/66 10/13/24 08:00 Pulse Ox 95 10/13/24 08:00 O2 Del Method Room Air 10/13/24 08:00 BMI result Body Mass Index 28.7 Appearance: Alert.? Oriented X3.? cvs: rrr, [id number]. res: clear to auscultation ,no rhonchii or wheezing abd: no rebound or guarding ,epigastric discomfort, bs present. ext pulses present , no cyanosis . neuro: axo3 , nonfocal. Objective Data Active Medications Acetaminophen (Acetaminophen 325 Mg Tablet) 975 mg PO Q6H PRN PRN Reason: Pain, Mild 1-3,fever,headache Last Admin: 10/13/24 07:46 Dose: 975 mg Documented By: ENOCH Lipase/Protease/Amylase (Lipase/Prot/Amylase 12/38/60k Capsule.Dr) 2 cap PO TIDWM [facility] Last Admin: 10/13/24 07:46 Dose: 2 cap Documented By: ENOCH Betamethasone Dipropion Augmented (Betamethasone Dip Aug 0.05% Cr 15 Gm Tube) 1 appl TOPICAL BID PRN PRN Reason: CTCL flares Calcium Carbonate (Calcium Carbonate 750 Mg Tab.Chew) 750 mg PO Q4H PRN PRN Reason: Heartburn Capsaicin (Capsaicin 0.025% Cream 60 Gm Tube) 1 appl TOPICAL QID PRN; Protocol PRN Reason: Pain, Mild (Pain Scale 1-3) Clotrimazole (Clotrimazole 1 % Cream 15 Gm Tube) 1 appl TOPICAL BID PRN PRN Reason: CTCL flares Dextrose (Dextrose 50 % 25 Gm/50 Ml Syringe) 25 gm IVPUSH Q15M PRN; Protocol PRN Reason: per Hypoglycemia Standing Ord. Docusate Sodium (Docusate Sodium 100 Mg Capsule) 100 mg PO DAILY [facility] Last Admin: 10/13/24 08:04 Dose: Not Given Documented By: ENOCH Non-Admin Reason: diarrhea Glucose (Glucose Gel 15 Gm Gel..Gram.) 15 gm PO Q15M PRN; Protocol PRN Reason: per Hypoglycemia Standing Ord. Sodium Chloride (Ns) 1,000 mls @ 125 mls/hr IVCONT .Q8H [facility] Last Admin: 10/13/24 03:58 Dose: 125 mls/hr Documented By: RAFAEL Insulin Human Lispro (Insulin Lispro 100 Unit/Ml 3 Ml Vial) 0 unit SUBCUT QIDACHS [facility]; Protocol Last Admin: 10/13/24 07:34 Dose: Not Given Documented By: ENOCH Non-Admin Reason: No Insulin Coverage Lidocaine (Lidocaine 4 % Patch Adh..Patch) 1 patch TRANSDERMA DAILY [facility]; Protocol Last Admin: 10/13/24 07:46 Dose: 1 patch Documented By: ENOCH Magnesium Hydroxide (Milk Of Magnesia 30 Ml Oral.Susp) 30 ml PO DAILY PRN PRN Reason: Constipation Magnesium Oxide (Magnesium Oxide 400 Mg Tablet) 400 mg PO BIDPC [facility] Last Admin: 10/13/24 07:46 Dose: 400 mg Documented By: ENOCH Melatonin (Melatonin 3 Mg Tablet) 6 mg PO BEDTIME PRN PRN Reason: Insomnia Last Admin: 10/11/24 02:11 Dose: 6 mg Documented By: STEPHANIE Multivitamins/Vitamin C (Multivitamin Tablet) 1 tab PO DAILY [facility] Last Admin: 10/13/24 07:46 Dose: 1 tab Documented By: ENOCH Pt Own (Erenumab- Aooe [Aimovig Autoinjector] 140 Mg /Ml Auto-Injector) 140 mg SUBCUT Q28D [facility] Last Admin: 10/12/24 21:03 Dose: 140 mg Documented By: RAFAEL Non-Formulary Medication (Linaclotide [Linzess]) 145 mcg PO DAILY [facility] Nortriptyline HCl (Nortriptyline Hcl 25 Mg Capsule) 75 mg PO BEDTIME [facility] Last Admin: 10/12/24 20:26 Dose: 75 mg Documented By: RAFAEL Ondansetron HCl (Ondansetron Hcl 4 Mg/2 Ml Vial) 4 mg IVPUSH Q8H PRN PRN Reason: Nausea and Vomiting Last Admin: 10/13/24 05:37 Dose: 4 mg Documented By: RAFAEL Pentoxifylline (Pentoxifylline Er 400 Mg Tablet.Er) 400 mg PO BID [facility] Last Admin: 10/13/24 07:46 Dose: 400 mg Documented By: ENOCH Promethazine HCl (Promethazine Hcl 25 Mg Tablet) 25 mg PO Q4H PRN PRN Reason: Nausea and Vomiting Sodium Chloride (0.9 % Sodium Chloride Flush 3 Ml Syringe) 3 ml IVFLUSH QSHIFT [facility] Last Admin: 10/13/24 07:47 Dose: 3 ml Documented By: ENOCH Sumatriptan Succinate (Sumatriptan Succinate 100 Mg Tablet) 100 mg PO DAILY PRN PRN Reason: Migraine Headache Last Admin: 10/12/24 09:44 Dose: 100 mg Documented By: SACHIN Sumatriptan Succinate (Sumatriptan Succinate 100 Mg Tablet) 100 mg PO DAILY PRN PRN Reason: Migraine Headache Tizanidine HCl (Tizanidine Hcl 4 Mg Tablet) 4 mg PO Q8H PRN PRN Reason: muscle spasms Last Admin: 10/13/24 07:46 Dose: 4 mg Documented By: ENOCH Triamcinolone Acetonide (Triamcinolone Acet 0.1 % Cream 15 Gm Tube) 1 appl TOPICAL BID PRN PRN Reason: CTCL flares on scalp Vitamin D (Cholecalciferol (Vitamin D3) 25 Mcg Tablet) 25 mcg PO DAILY [facility] Last Admin: 10/13/24 07:46 Dose: 25 mcg Documented By: ENOCH Zolpidem Tartrate (Zolpidem Tartrate 5 Mg Tablet) 10 mg PO BEDTIME [facility] Last Admin: 10/12/24 22:51 Dose: 10 mg Documented By: RAFAEL Labs 10/13/24 08:58 10/13/24 06:57 Labs: Laboratory Results - last 24 hr 10/12/24 10/12/24 10/12/24 11:19 16:15 17:22 MCV 84.3 MCH 28.6 MCHC 33.9 RDW 14.0 Plt Count 135 L D MPV 12.7 H Absolute Nucleated RBC 0.000 Nucleated RBC % (auto) 0.0 Hold Purple Top Anion Gap 10 L Estim Creat Clear Calc 84.7 Estimated GFR > 60 POC Glucose 134 H 176 H Random Glucose 119 H Calcium 8.6 D Magnesium 1.8 10/12/24 10/13/24 10/13/24 19:59 06:57 07:24 MCV MCH MCHC RDW Plt Count MPV Absolute Nucleated RBC Nucleated RBC % (auto) Hold Purple Top SEE NOTE Anion Gap 10 L Estim Creat Clear Calc 91.4 Estimated GFR > 60 POC Glucose 103 97 Random Glucose 97 Calcium 9.3 D Magnesium 1.6 Assessment and Plan (1) Acute on chronic pancreatitis: Status: Acute Assessment and Plan: 54-year-old male with a past medical history significant for chronic pancreatitis, type 2 diabetes, chronic constipation, and migraines who presented to the ED due to worsening upper abdominal pain times 10 days. acute on chronic pancreatitis WBC normal, vitals stable, no sepsis ct abd: with acute on chronic pancreatitis triglycerides mildly elevated,lipase [address] abd reviewed by gi-? inflamtion of duodenum plan: Gi eval noted -trial of full liquid diet and pain meds ,pnetoxyphylin and kreon,ppi acute hypokalemia and hypomagnesemia : hypokalemia improved with iv/po magnesium. T2DM hba1c is 6.6 - stop trulicity as above - sliding scale insulin chronic constipation- continue home meds when appropriate Full code VTE prophylaxis: Lovenox Patient with acute on chronic pancreatitis requiring admission- IV pain management, fluids and replace electrolytes aggressive and moniter reanl function/electrolytes. Quality Stroke Does the patient have a stroke diagnosis?: No VTE Prior VTE?: No VTE Risk Level:: Medical - moderate - high VTE Device Contraindication: Treatment Not Indicated VTE Drug Contraindication: N/A - Med Ordered
[2024-10-13 09:07] LABS: Hematocrit 29.1 % (42.0-52.0); Hemoglobin 9.8 g/dl (14.0-18.0)
[2024-10-13 09:13] LABS: Platelet Count 150 X10*3/uL (160-400)
[2024-10-13] MEDS: HYDROmorphone HCl 2 MG TABLET 1 MG PO ×3 (10:38→20:18)
[2024-10-13 11:32] LABS: Glucose, Whole Blood 131 mg/dL (60-115)
[2024-10-13] MEDS: Omeprazole 20 MG CAPSULE.DR PO (16:10)
[2024-10-13] MEDS: Sucralfate 1 GM TABLET PO ×2 (16:10→20:18)
[2024-10-13 16:15] LABS: Glucose, Whole Blood 102 mg/dL (60-115)
--- NOTE | 2024-10-13 16:18 | MHC.CM.PN ---
PT W/ACUTE ON CHRONIC PANCREATITIS, DIET ADVANCED TO FULL LIQUIDS, ANTIC PT WILL DC HOME NO SERVICES ONCE TOLERATING REGULAR DIET, CM WILL CONT TO FOLLOW DC NEEDS.
[2024-10-13] MEDS: Nortriptyline HCl 25 MG CAPSULE 75 MG PO (20:18)
[2024-10-13 21:29] LABS: Glucose, Whole Blood 176 mg/dL (60-115)
--- NOTE | 2024-10-13 22:03 | P.PNGI_ITS ---
Subjective Subjective Date of Service: 10/13/24 Interval History: still has abdominal pain bt looks more relaxed CT repest stable no nasuea or vomiting, no melena Critical Care Time (minutes): 0 Physical Exam 2 Vital Signs: Vital Signs: Last Vital Signs Temp 98.5 F 10/13/24 20:00 Pulse 84 10/13/24 20:00 Resp 17 10/13/24 20:00 BP 104/61 10/13/24 20:17 Pulse Ox 95 10/13/24 20:00 O2 Del Method Room Air 10/13/24 20:00 O2 Flow Rate 2 10/13/24 19:55 BMI result Body Mass Index 28.7 EXAM: GENERAL: The patient is well developed and nontoxic. VITAL SIGNS:see workflow HEENT: Nonicteric sclerae, PERRLA, EOMI. Oropharynx clear. Moist mucous membranes. Conjunctivae appear well perfused. No thyroid mass. CHEST: Chest wall is nontender. HEART: Regular rate and rhythm without murmurs. LUNGS: Clear to auscultation bilaterally. ABDOMEN: Soft, positive bowel sounds, tender epigastrium, no organomegaly.no flank tenderness SKIN: No rash, no excessive bruising, petechiae, or purpura. NEUROLOGIC: Cranial nerves II-XII intact without motor/sensory deficit. Psych: normal affect Objective Data Labs 10/13/24 08:58 10/13/24 06:57 Labs: Laboratory Results - last 24 hr 10/13/24 10/13/24 10/13/24 06:57 07:24 08:58 Hgb 9.8 L Hct 29.1 L Plt Count 150 L Hold Purple Top SEE NOTE Sodium 144 Potassium 3.3 Chloride 115 H Carbon Dioxide 22 Anion Gap 10 L BUN 6 L Creatinine 0.88 Estim Creat Clear Calc 91.4 Estimated GFR > 60 POC Glucose 97 Random Glucose 97 Calcium 9.3 D Magnesium 1.6 10/13/24 10/13/24 10/13/24 11:27 16:11 21:25 Hgb Hct Plt Count Hold Purple Top Sodium Potassium Chloride Carbon Dioxide Anion Gap BUN Creatinine Estim Creat Clear Calc Estimated GFR POC Glucose 131 H 102 176 H Random Glucose Calcium Magnesium Imaging CT scan - abdomen: Attestation: I personally reviewed and interpreted this imaging study as follows: (chronic panc, calcifications with gastric and duodenal thickening noted, keesha nephric stranding) Procedures Date of Service Date of Service: 10/13/24 Progress Note: A&P Assessment and plan (1) Acute on chronic pancreatitis: Status: Acute Plan 1/ advance diet 2/ add carafate and high dose Ppi 3/anemia, stable --no overt bleeding, prob anemia of chrnic dz--if any evidence of gib then endoscopy, also check b12, folate and iron Time Spent With Patient Time: Total time managing care of this patient today ____ minutes. Quality Stroke Does the patient have a stroke diagnosis?: No VTE Prior VTE?: No VTE Risk Level:: Medical - moderate - high VTE Device Contraindication: Treatment Not Indicated VTE Drug Contraindication: N/A - Med Ordered
[2024-10-13] MEDS: Insulin Lispro 100 UNIT/ML 3 ML VIAL SUBCUT (22:38)
[2024-10-14] VITALS: BP 124/77; PULSE 74; RESP 17; TEMP 36.2; O2SAT 95
[2024-10-14 01:39] VITALS: BP 100/57; PULSE 82; RESP 17; O2SAT 92
[2024-10-14] MEDS: 0.9 % Sodium Chloride 1,000 ML 125 ML IVCONT (01:39)
[2024-10-14 04:00] VITALS: BP 113/72; PULSE 72; RESP 18; TEMP 36.9; O2SAT 94
[2024-10-14] MEDS: HYDROmorphone HCl 2 MG TABLET 1 MG PO ×2 (05:01→11:28)
[2024-10-14] MEDS: Omeprazole 20 MG CAPSULE.DR PO (05:02)
[2024-10-14] MEDS: Acetaminophen 325 MG TABLET 975 MG PO ×2 (05:02→11:28)
[2024-10-14 07:28] VITALS: BP 114/68; PULSE 74; RESP 16; TEMP 37.2; O2SAT 93
[2024-10-14 07:32] LABS: Glucose, Whole Blood 95 mg/dL (60-115)
[2024-10-14] MEDS: Sucralfate 1 GM TABLET PO ×2 (08:27→11:28)
[2024-10-14] MEDS: Pentoxifylline ER 400 MG TABLET.ER PO (08:27)
[2024-10-14] MEDS: Lipase/Prot/Amylase 12/38/60K CAPSULE.DR 2 CAP PO ×2 (08:27→11:29)
[2024-10-14] MEDS: Cholecalciferol (Vitamin D3) 25 MCG TABLET PO (08:27)
[2024-10-14] MEDS: TiZANidine HCL 4 MG TABLET PO (08:28)
[2024-10-14] MEDS: Multivitamin TABLET 1 TAB PO (08:28)
[2024-10-14] MEDS: 0.9 % Sodium Chloride Flush 3 ML SYRINGE IVFLUSH (08:28)
[2024-10-14] MEDS: Magnesium Oxide 400 MG TABLET PO (08:28)
[2024-10-14 11:08] VITALS: BP 104/63; PULSE 82; RESP 16; TEMP 36.4; O2SAT 97
[2024-10-14 11:18] LABS: Glucose, Whole Blood 185 mg/dL (60-115)
[2024-10-14] MEDS: Insulin Lispro 100 UNIT/ML 3 ML VIAL SUBCUT (11:32)
--- NOTE | 2024-10-14 12:09 | PM.DS ---
DS: Providers Provider Date of Service: 10/14/24 Date of admission: 10/09/24 21:46 Date of discharge: 10/14/24 Primary care physician: Alfa Saeed MD Consults: 10/10/24 10:27 Consult to Gastroenterology Routine Consulting Provider: [facility] Reason for consultation: ABD PAIN Has provider been notified: No Attending physician on discharge: Mayte Cedeno Discharging clinician: Mayte Cedeno DS: Diagnosis Discharge Diagnosis (1) Acute on chronic pancreatitis: Status: Acute DS: Summary Hospital Course Hospital Course: HPI:54-year-old male with a past medical history significant for chronic pancreatitis, type 2 diabetes, chronic constipation, and migraines who presented to the ED due to worsening upper abdominal pain times 10 days. He was seen in the ED 3 days ago and sent home with p.o. pain medication for an episode of acute pancreatitis. He reports that the pain has been worsening and he has severe nausea but no vomiting. He has not been able to tolerate much by mouth. He also complains of a mild headache. He denies any runny nose, congestion, cough, lower extremity edema or urinary symptoms including frequency urgency or hematuria. Hospital course: 54-year-old male with a past medical history significant for chronic pancreatitis, type 2 diabetes, chronic constipation, and migraines who presented to the ED due to worsening upper abdominal pain admitted for acute on ch pancreatitis : started on bowel rest , iv hydration,pain meds and ct abd -likely acute on ch component of pancreatitis : patient seems to be improved with above supportive care ,also seen by Gi recomended :o/p f/u to discuss ERCP and stent with lithotripsy vs Yessica procedure as most debris is in pancreas head. anemia normocyctic : h/h stable aound 9.8/29.1. patient denies any melena or galo bleeding . Gi recomended outpatient workup, follow up with Gi outpatient. in addition continue omeprazole and carafate. follow up cbc outpatient and GI outpatient. plan: moniter cbc . continue ppi/added carafate. further management outpatient with GI (ch. pancreatitis and anemia). Above management discussed with the patient in detail length he understand and in agreement with the above plan, time spent 40 minutes and 50% time spent on counseling. Time Attestation Total time managing care of this patient today: 40 mintues. Discharge Coordination Time (in mins): 40min Quality: Safe Use of Opioids Does Pt have an Active Cancer Diagnosis on the Problem List?: No Quality: Stroke Does the patient have a stroke diagnosis?: No Physical Exam Vital Signs: Vital Signs: Last Vital Signs Temp 97.6 F 10/14/24 11:08 Pulse 82 10/14/24 11:08 Resp 16 10/14/24 11:08 BP 104/63 10/14/24 11:08 Pulse Ox 97 10/14/24 11:08 O2 Del Method Room Air 10/14/24 11:08 O2 Flow Rate 2 10/13/24 19:55 BMI result Body Mass Index 28.7 Appearance: Alert.? Oriented X3.? cvs: rrr, [id number]. res: clear to auscultation ,no rhonchii or wheezing abd: no rebound or guarding ,nt , bs present. ext pulses present , no cyanosis . neuro: axo3 , nonfocal. DS: Data Data Completed and Pending Labs on day of discharge: Laboratory Results - last 24 hr 10/13/24 10/13/24 10/14/24 16:11 21: 07:27 POC Glucose 102 176 H 95 10/14/24 11:12 POC Glucose 185 H Additional Comments Additional comments: ct abd: Impression: Chronic pancreatitis findings without acute process Multifocal lung base atelectasis Discharge Plan Discharge Anticipated Discharge Date/Time: 10/14/24 11:58 Patient Disposition: Home, Self-Care Discharge Diagnosis: acute on chronic pancreatitis Referrals: Alfa Saeed MD [Primary Care Provider] - 1 Week Discharge Medications: New sucralfate 1 gram Tablet 1 g PO QIDACHS Qty: 240 0RF Continued Linzess 145 mcg capsule 145 mcg PO QAM Qty: 90 1RF tizanidine 4 mg tablet 1 tab PO Q8H PRN (Reason: muscle spasms) sumatriptan succinate 100 mg tablet 100 mg PO DAILY PRN (Reason: Migraine Headache) nortriptyline 25 mg capsule 75 mg PO BEDTIME zolpidem 10 mg tablet 10 mg PO BEDTIME rosuvastatin 40 mg tablet 1 tab PO DAILY oxycodone 10 mg tablet 1 tab PO Q6H fenofibrate 54 mg tablet 2 tab PO DAILY ondansetron 4 mg tablet,disintegrating 1 tab PO Q8H PRN (Reason: Nausea And Vomiting) clobetasol 0.05 % cream 1 appl topical BID PRN (Reason: CTCL flares) betamethasone valerate 0.1 % lotion 1 appl topical BID PRN (Reason: CTCL flares on scalp) vitamin B complex Tablet 1 tab PO DAILY pioglitazone 30 mg tablet 30 mg PO DAILY ketoconazole 2 % cream 1 appl topical BID PRN (Reason: CTCL flares) Creon 12,000-38,000 -60,000 unit capsule,delayed release(DR/EC) 1 cap PO DAILY PRN (Reason: with snacks) Aimovig Autoinjector 140 mg/mL auto-injector 140 mg subcut QMONTH Patient Comments: Injects on the of every month Trulicity 4.5 mg/0.5 mL pen injector 4.5 mg subcut FR omeprazole 40 mg capsule,delayed release(DR/EC) 1 cap PO DAILY@0630 Creon 12,000-38,000 -60,000 unit capsule,delayed release(DR/EC) 2 cap PO TIDWM Rx Instructions: 1 capsule with the first bite and and two capsules in between meals And 1 capsule with each snack cholecalciferol (vitamin D3) 25 mcg (1,000 unit) capsule 25 mcg PO DAILY docusate sodium 100 mg capsule 100 mg PO DAILY Discharge Orders: Discharge Order (Routine); Ordered 10/14/24 Ordered By: Mayte Cedeno Diet: Advance to usual diet Activity on Discharge: As tolerated Stand Alone Forms: Patient Portal Discharge page Print Language: Bulgarian Other Ambulatory Orders: Complete Blood Count no Diff (Routine) Timeframe: 1 Week Facility: [facility] - Location: Laboratory Ordered By: Mayte Cedeno Care Plan Goals: 54-year-old male with a past medical history significant for chronic pancreatitis, type 2 diabetes, chronic constipation, and migraines who presented to the ED due to worsening upper abdominal pain admitted for acute on ch pancreatitis : started on bowel rest , iv hydration,pain meds and ct abd -likely acute on ch component of pancreatitis : patient seems to be improved with above supportive care ,also seen by Gi recomended :o/p f/u to discuss ERCP and stent with lithotripsy vs Yessica procedure as most debris is in pancreas head. anemia normocyctic : h/h stable aound 9.8/29.1. patient denies any melena or galo bleeding . Gi recomended outpatient workup, follow up with Gi outpatient. in addition continue omeprazole and carafate. follow up cbc outpatient and GI outpatient. Health Concerns: as above. Plan of Treatment: follow up with Gi. Assessment: as above.
--- NOTE | 2024-10-14 12:16 | MHC.CM.PN ---
Patient has been medically cleared for dc to home today, self care. CM addressed IMM with Patient and provided him with the original and a copy was placed on the chart.
== END 2024-10-14 13:00 | disposition home or self-care (01) | DRG 440 ==
LOC: HO.ED 20:46 → HO.EDOVER 21:53 → HO.S3 10-10 02:11 → HO.IMC 10-12 16:44
PROVIDERS: Admitting Provider Student in an Organized Health Care Education/Training Program; Emergency Provider Emergency Medicine; PCP Family Medicine; Visit Provider Internal Medicine
DX: K85.90 Acute pancreatitis without necrosis or infection, unspecified (principal); K86.1 Other chronic pancreatitis; K59.09 Other constipation; D63.8 Anemia in other chronic diseases classified elsewhere; E87.6 Hypokalemia; E83.42 Hypomagnesemia; E11.9 Type 2 diabetes mellitus without complications; Z79.85 Long-term (current) use of injectable non-insulin antidiabetic drugs; Z79.899 Other long term (current) drug therapy
CPT/HCPCS: 0241U; 36415; 70450; 74177; 80048; 80053; 80076; 80307; 81003; 82248; 82947; 83036; 83690; 83735; 84132; 84478; 84484; 85014; 85018; 85025; 85027; 85049; 93005; 99283; 99285; J1171; J1650; J2405; J2470; J3475; J3480; J7120; P9047; Q9967

== ENCOUNTER → 2024-10-09 18:16 | Outpatient (BNV) | payer MEDICARE, MEDICAID, SELFPAY | PROVIDERS: Emergency Provider Emergency Medicine; PCP Family Medicine; Visit Provider Radiology Diagnostic Radiology | DX: K86.1 Other chronic pancreatitis (principal) | CPT/HCPCS: 74177 ==

== ENCOUNTER → 2024-10-09 18:17 | Outpatient (BNV) | payer MEDICARE, MEDICAID, SELFPAY | PROVIDERS: Admitting Provider Student in an Organized Health Care Education/Training Program; Emergency Provider Emergency Medicine; PCP Family Medicine; Visit Provider Internal Medicine | DX: R10.13 Epigastric pain (principal) | CPT/HCPCS: 93010 ==

== ENCOUNTER 2024-10-09 21:46 | Outpatient (BNV) | payer MEDICARE, MEDICAID, SELFPAY | END 2024-10-12 22:38 | PROVIDERS: Admitting Provider Student in an Organized Health Care Education/Training Program; Emergency Provider Emergency Medicine; PCP Family Medicine; Visit Provider Radiology Diagnostic Radiology | DX: R51.9 Headache, unspecified (principal); K86.1 Other chronic pancreatitis; J98.11 Atelectasis | CPT/HCPCS: 70450; 74177 ==

== ENCOUNTER → 2024-10-09 21:46 | Outpatient (BNV) | payer MEDICARE, MEDICAID, SELFPAY | PROVIDERS: Admitting Provider Student in an Organized Health Care Education/Training Program; Emergency Provider Emergency Medicine; PCP Family Medicine; Visit Provider Physician Assistant | DX: K86.1 Other chronic pancreatitis (principal); K85.90 Acute pancreatitis without necrosis or infection, unspecified | CPT/HCPCS: 99223; 99231; 99232; 99239 ==

== ENCOUNTER → 2024-10-09 21:46 | Outpatient (BNV) | payer MEDICARE, MEDICAID, SELFPAY | PROVIDERS: Admitting Provider Student in an Organized Health Care Education/Training Program; Emergency Provider Emergency Medicine; PCP Family Medicine; Visit Provider Internal Medicine Gastroenterology | DX: K85.90 Acute pancreatitis without necrosis or infection, unspecified (principal); K86.1 Other chronic pancreatitis | CPT/HCPCS: 99223; 99232 ==

== ENCOUNTER 2024-10-20 10:23 | Outpatient (REF) | payer MEDICARE, MEDICAID, SELFPAY ==
--- OUTSIDE RECORDS SUMMARY | 2024-10-20 11:43 | XMS_ITS | Data Portability ---
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, [address] [place] [address], [id number], 10/28/2023 15:50:09 microa lbumin /creat inine, ratio panel, urine [address] [facility], [address] [place] [address], [id number], 10/28/2023 16:33:30 lipid panel, serum [address] [facility], [address] [place] [address], [id number], 10/28/2023 16:03:20 CMP, serum or plasma [address] [facility], [address] [place] [address], [id number], 11/02/2023 11:16:49 HbA1c (hemog lobin A1c), blood [address] [facility], [address] [place] [address], [address], 02/11/2024 14:19:11 lipid panel, serum [address] [facility], [address] [place] [address], [address], 02/11/2024 15:40:08 microa lbumin /creat inine, ratio panel, urine [address] [facility], [address] [place] [address], [address], 02/14/2024 10:11:33 CMP, serum or plasma [address] [facility], [address] [place] [address], [address], 02/11/2024 15:40:07 HbA1c (hemog lobin A1c), blood [address] [facility], [address] [place] [address], [id number], 05/19/2024 15:46:46 CMP, serum or plasma [address] [facility], [address] [place] [address], [address], 08/24/2024 16:01:55 lipid panel, serum [address] [facility], [address] [place] [address], 164[address], 08/24/2024 15:53:20 microa lbumin /creat inine, ratio panel, urine [facility]23 [email or web address] [address] [place], [address], 09/11/2024 13:09:36 HbA1c (hemog lobin A1c), blood [address] [facility], [address] [place], [address], 08/24/2024 14:12:11 Referral None record ed. 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 Please evalua te and compar e to previo us study. 2023 024 [email or web address] [facility], [address] [place], [address], 04/05/2024 13:19:02 Surgeries None record ed. Imaging None record ed. Medication Orders Trulic ity 4.5 mg/0.5 mL subcut aneous pen inject or 2023 024 [facility], [address] [place], [address], 04/05/2024 13:12:47 Trulic ity 3 mg/0.5 mL subcut aneous pen inject or [address] [facility], [address] [place], [address], 08/02/2024 12:03:07 fenofi brate 54 mg tablet 2023 024 ana guaman [facility][id number], [address] [facility] [place], [address], 10/28/2023 15:11:58 Accu-C hek Aby Plus test strips [address] [id number], [address] [place], [id number], 10/28/2023 15:11:58 fenofi brate 120 mg tablet 2023 024 [email or web address] [id number], [address] [facility] [place], [address], 10/28/2023 13:30:14 Trulic ity 1.5 mg/0.5 mL subcut aneous pen inject or 2023 024 [email or web address] [id number], [address] [facility] [place], [address], 04/05/2024 12:17:27 Patient TargetsNo targets recorded. Patient Instructions Encounter Date Encounter Id Patient Instructions Last Modified By Organization Details Last Modified Time 09/15/2023 [id number] - Stay on same medications for now. [...] 09/29/22- src Not available 04/06/2023 09:53:26 12/07/2023 [id number] 1.) - Increase Trulicity to 3 mg weekly after completing rest of your supply of 1.5 mg weekly. 2.) - Come back for nurse/doctor visit after taking 3 mg x at least 4 weeks - January 2024. 3)- Lab one week prior to RN/MD appt [email or web address] Not available 12/07/2023 19:00:24 ENDO RN visit in January 2024. [email or web address] Not available 12/07/2023 19:00:32 04/05/2024 [id number] - Stay on same medications for now. [...] furth er confi rmati on Not Available [address], [address], 08/27/2023 12:53:26 08/27/1908/27/2023 HGB A1C estimated average glucose 185.8 mg/dL Not Available [address], [address], 08/27/2023 12:53:26 08/27/1908/27/2023 COMP. METAB OLIC PANEL glucose 144 mg/dL 70-100 high Not Available [address], [address], 08/27/2023 14:13:32 08/27/19 24 08/27/2023 COMP. METAB OLIC PANEL BUN 13 mg/dL 7-18 Not Available [address], [address], 08/27/2023 14:13:32 08/27/19 24 08/27/2023 COMP. METAB OLIC PANEL creatinine 1.3 mg/dL 0.8-1. 3 Not Available [address], [address], 08/27/2023 14:13:32 08/27/19 24 08/27/2023 COMP. METAB OLIC PANEL B/C 10.0 ratio Not Available [address], [address], 08/27/2023 14:13:32 08/27/19 24 08/27/2023 COMP. METAB [...] be used in pregn raine. Not Available [address], [address], 08/27/2023 14:13:32 08/27/19 24 08/27/2023 COMP. METAB OLIC PANEL sodium 143 mmol/ L 136-14 5 Not Available [address], [address], 08/27/2023 14:13:32 08/27/19 24 08/27/2023 COMP. METAB OLIC PANEL potassium 4.0 mmol/ L 3.5-5. 1 Not Available [address], [address], 08/27/2023 14:13:32 08/27/19 24 08/27/2023 COMP. METAB OLIC PANEL chloride 104 mmol/ L 96-107 Not Available [address], [address], 08/27/2023 14:13:32 08/27/19 24 08/27/2023 COMP. METAB OLIC PANEL anion gap 10.2 5.0-15 .0 Not Available [address], [address], 08/27/2023 14:13:32 08/27/19 24 08/27/2023 COMP. METAB OLIC PANEL CO2 29 mmol/ L 21-32 Not Available [address], [address], 08/27/2023 14:13:32 08/27/19 24 08/27/2023 COMP. METAB OLIC PANEL calcium 9.8 mg/dL 8.5-10 .3 Not Available [address], [address], 08/27/2023 14:13:32 08/27/19 24 08/27/2023 COMP. METAB OLIC PANEL total protein 8.1 g/dL 6.4-8. 2 Not Available [address], [address], 08/27/2023 14:13:32 08/27/19 24 08/27/2023 COMP. METAB OLIC PANEL albumin 4.2 g/dL 3.4-5. 0 Not Available [address], [address], 08/27/2023 14:13:32 08/27/19 24 08/27/2023 COMP. METAB OLIC PANEL globulin 3.9 g/dL Not Available [address], [address], 08/27/2023 14:13:32 08/27/19 24 08/27/2023 COMP. METAB OLIC PANEL A/G 1.1 ratio 0.8-2. 0 Not Available [address], [address], 08/27/2023 14:13:32 08/27/19 24 08/27/2023 COMP. METAB OLIC PANEL total bilirubin 0.30 mg/dL 0.00-1 .00 Not Available [address], [address], 08/27/2023 14:13:32 08/27/19 24 08/27/2023 COMP. METAB OLIC PANEL AST 22 U/L 0-37 Not Available [address], [address], 08/27/2023 14:13:32 08/27/19 24 08/27/2023 COMP. METAB OLIC PANEL ALT 29 U/L 6-63 Not Available [address], [address], 08/27/2023 14:13:32 08/27/19 24 08/27/2023 COMP. METAB OLIC PANEL alk. phos. 67 U/L 50-136 Not Available [address], [address], 08/27/2023 14:13:32 08/27/19 24 08/27/2023 LIPID PANEL cholesterol 112 mg/dL <200 mg/dl Yogesh able 200-2 39 mg/dl Borde rline High >240 mg/dl High Not Available [address], [address], 08/27/2023 14:13:33 08/27/19 24 08/27/2023 LIPID PANEL triglyceride s 214 mg/dL <150 mg/dL Mary l 150-1 99 mg/dL Borde rline High 200-4 99 mg/dL High >500 mg/dL Very High Not Available [address], [address], 08/27/2023 14:13:33 08/27/19 24 08/27/2023 LIPID PANEL direct HDL 47 mg/dL <40 mg/dl - Major Risk for CHD >60 mg/dl - Negat ricardo Risk for CHD Not Available [address], [address], 08/27/2023 14:13:33 08/27/19 24 08/27/2023 LDL - [...] r is not franny devora. Not Available [address], [address], 08/27/2023 14:13:34 08/27/19 24 08/27/2023 MICRO ALBUM IN/CR EATIN INE RATIO PANEL , URINE microalbumin 8.1 mg/L 1.3-20 .0 Not Available [address], [address], 08/27/2023 14:33:16 08/27/19 24 08/27/2023 MICRO ALBUM IN/CR EATIN INE RATIO PANEL , URINE creatinine urine 169.2 mg/dL 30.0-1 25.0 high Not Available [address], [address], 08/27/2023 14:33:16 08/27/19 24 08/27/2023 MICRO ALBUM IN/CR EATIN INE RATIO PANEL , URINE microalb/cre at ratio 4.8 mg/g_ creat 0.0-29 .0 Not Available [address], [address], 08/27/2023 14:33:16 10/28/19 24 10/28/2023 HGB A1C [...] furth er confi rmati on Not Available [address], [address], 10/28/2023 15:50:09 10/28/19 24 10/28/2023 HGB A1C estimated average glucose 191.5 mg/dL Not Available [address], [address], 10/28/2023 15:50:09 10/28/19 24 10/28/2023 LIPID PANEL cholesterol 117 mg/dL <200 mg/dl Yogesh able 200-2 39 mg/dl Borde rline High >240 mg/dl High Not Available [address], [address], 10/28/2023 16:03:20 10/28/19 24 10/28/2023 LIPID PANEL triglyceride s 177 mg/dL <150 mg/dL Mary l 150-1 99 mg/dL Borde rline High 200-4 99 mg/dL High >500 mg/dL Very High Not Available [address], [address], 10/28/2023 16:03:20 10/28/19 24 10/28/2023 LIPID PANEL direct HDL 51 mg/dL <40 mg/dl - Major Risk for CHD >60 mg/dl - Negat ricardo Risk for CHD Not Available [address], [address], 10/28/2023 16:03:20 10/28/19 24 10/28/2023 LDL - [...] r is not franny lozoya. Not Available [address], [address], 10/28/2023 16:03:21 10/28/19 24 10/28/2023 MICRO ALBUM IN/CR EATIN INE RATIO PANEL , URINE microalbumin 15.6 mg/L 1.3-20 .0 Not Available [address], [address], 10/28/2023 16:33:30 10/28/19 24 10/28/2023 MICRO ALBUM IN/CR EATIN INE RATIO PANEL , URINE creatinine urine 214.0 mg/dL 30.0-1 25.0 high Not Available [address], [address], 10/28/2023 16:33:30 10/28/19 24 10/28/2023 MICRO ALBUM IN/CR EATIN INE RATIO PANEL , URINE microalb/cre at ratio 7.3 mg/g_ creat 0.0-29 .0 Not Available [address], [address], 10/28/2023 16:33:30 10/28/19 24 11/02/2023 COMP. METAB OLIC PANEL glucose 167 mg/dL 70-100 high Not Available [address], [address], 11/02/2023 11:16:49 10/28/19 24 11/02/2023 COMP. METAB OLIC PANEL BUN 10 mg/dL 7-18 Not Available [address], [address], 11/02/2023 11:16:49 10/28/19 24 11/02/2023 COMP. METAB OLIC PANEL creatinine 1.2 mg/dL 0.8-1. 3 Not Available [address], [address], 11/02/2023 11:16:49 10/28/19 24 11/02/2023 COMP. METAB OLIC PANEL B/C 8.3 ratio Not Available [address], [address], 11/02/2023 11:16:49 10/28/19 24 11/02/2023 COMP. METAB [...] be used in pregn raine. Not Available [address], [address], 11/02/2023 11:16:49 10/28/19 24 11/02/2023 COMP. METAB OLIC PANEL sodium 143 mmol/ L 136-14 5 Not Available [address], [address], 11/02/2023 11:16:49 10/28/19 24 11/02/2023 COMP. METAB OLIC PANEL potassium 4.0 mmol/ L 3.5-5. 1 Not Available [address], [address], 11/02/2023 11:16:49 10/28/19 24 11/02/2023 COMP. METAB OLIC PANEL chloride 103 mmol/ L 96-107 Not Available [address], [address], 11/02/2023 11:16:49 10/28/19 24 11/02/2023 COMP. METAB OLIC PANEL anion gap 13.5 5.0-15 .0 Not Available [address], [address], 11/02/2023 11:16:49 10/28/19 24 11/02/2023 COMP. METAB OLIC PANEL CO2 27 mmol/ L 21-32 Not Available [address], [address], 11/02/2023 11:16:49 10/28/19 24 11/02/2023 COMP. METAB OLIC PANEL calcium 10.1 mg/dL 8.5-10 .3 Not Available [address], [address], 11/02/2023 11:16:49 10/28/19 24 11/02/2023 COMP. METAB OLIC PANEL total protein 8.2 g/dL 6.4-8. 2 Not Available [address], [address], 11/02/2023 11:16:49 10/28/19 24 11/02/2023 COMP. METAB OLIC PANEL albumin 4.4 g/dL 3.4-5. 0 Not Available [address], [address], 11/02/2023 11:16:49 10/28/19 24 11/02/2023 COMP. METAB OLIC PANEL globulin 3.8 g/dL Not Available [address], [address]791, 11/02/2023 11:16:49 10/28/19 24 11/02/2023 COMP. METAB OLIC PANEL A/G 1.2 ratio 0.8-2. 0 Not Available [address], [address]957, 11/02/2023 11:16:49 10/28/19 24 11/02/2023 COMP. METAB OLIC PANEL total bilirubin 0.30 mg/dL 0.00-1 .00 Not Available [address], [address]751, 11/02/2023 11:16:49 10/28/19 24 11/02/2023 COMP. METAB OLIC PANEL AST 30 U/L 0-37 Not Available [address], [address], 11/02/2023 11:16:49 10/28/19 24 11/02/2023 COMP. METAB OLIC PANEL ALT 32 U/L 6-63 Not Available [address], 47[address], 11/02/2023 11:16:49 10/28/19 24 11/02/2023 COMP. METAB OLIC PANEL alk. phos. 96 U/L 50-136 Not Available [address], [address], 11/02/2023 11:16:49 02/11/20 24 02/11/2024 HGB A1C [...] furth er confi rmati on Not Available [address], [address], 02/11/2024 14:19:10 02/11/20 24 02/11/2024 HGB A1C estimated average glucose 177.2 mg/dL Not Available [address], [address], 02/11/2024 14:19:10 02/11/20 24 02/11/2024 COMP. METAB OLIC PANEL glucose 131 mg/dL 70-100 high Not Available [address], [address], 02/11/2024 15:40:07 02/11/20 24 02/11/2024 COMP. METAB OLIC PANEL BUN 13 mg/dL 7-18 Not Available [address], [address], 02/11/2024 15:40:07 02/11/20 24 02/11/2024 COMP. METAB OLIC PANEL creatinine 1.3 mg/dL 0.8-1. 3 Not Available [address], [address], 02/11/2024 15:40:07 02/11/20 24 02/11/2024 COMP. METAB OLIC PANEL B/C 10.0 ratio Not Available [address], [address], 02/11/2024 15:40:07 02/11/20 24 02/11/2024 COMP. METAB [...] be used in pregn raine. Not Available [address], [address], 02/11/2024 15:40:07 02/11/20 24 02/11/2024 COMP. METAB OLIC PANEL sodium 143 mmol/ L 136-14 5 Not Available [address], [address], 02/11/2024 15:40:07 02/11/20 24 02/11/2024 COMP. METAB OLIC PANEL potassium 4.1 mmol/ L 3.5-5. 1 Not Available [address], [address], 02/11/2024 15:40:07 02/11/20 24 02/11/2024 COMP. METAB OLIC PANEL chloride 104 mmol/ L 96-107 Not Available [address], [address], 02/11/2024 15:40:07 02/11/20 24 02/11/2024 COMP. METAB OLIC PANEL anion gap 10.2 5.0-15 .0 Not Available [address], 8[address], 02/11/2024 15:40:07 02/11/20 24 02/11/2024 COMP. METAB OLIC PANEL CO2 29 mmol/ L 21-32 Not Available [address], [address], 02/11/2024 15:40:07 02/11/20 24 02/11/2024 COMP. METAB OLIC PANEL calcium 10.0 mg/dL 8.5-10 .3 Not Available [address], [address], 02/11/2024 15:40:07 02/11/20 24 02/11/2024 COMP. METAB OLIC PANEL total protein 8.3 g/dL 6.4-8. 2 high Not Available [address], [address], 02/11/2024 15:40:07 02/11/20 24 02/11/2024 COMP. METAB OLIC PANEL albumin 4.4 g/dL 3.4-5. 0 Not Available [address], [address], 02/11/2024 15:40:07 02/11/20 24 02/11/2024 COMP. METAB OLIC PANEL globulin 3.9 g/dL Not Available [address], [address], 02/11/2024 15:40:07 02/11/20 24 02/11/2024 COMP. METAB OLIC PANEL A/G 1.1 ratio 0.8-2. 0 Not Available [address], [address], 02/11/2024 15:40:07 02/11/20 24 02/11/2024 COMP. METAB OLIC PANEL total bilirubin 0.30 mg/dL 0.00-1 .00 Not Available [address], [address], 02/11/2024 15:40:07 02/11/20 24 02/11/2024 COMP. METAB OLIC PANEL AST 27 U/L 0-37 Not Available [address], [address], 02/11/2024 15:40:07 02/11/20 24 02/11/2024 COMP. METAB OLIC PANEL ALT 32 U/L 6-63 Not Available [address], [address]227, 02/11/2024 15:40:07 02/11/20 24 02/11/2024 COMP. METAB OLIC PANEL alk. phos. 68 U/L 50-136 Not Available [address], [address], 02/11/2024 15:40:07 02/11/20 24 02/11/2024 LIPID PANEL cholesterol 109 mg/dL <200 mg/dl Yogesh able 200-2 39 mg/dl Borde rline High >240 mg/dl High Not Available [address], [address]99[address], 02/11/2024 15:40:08 02/11/20 24 02/11/2024 LIPID PANEL triglyceride s 123 mg/dL <150 mg/dL Mary l 150-1 99 mg/dL Borde rline High 200-4 99 mg/dL High >500 mg/dL Very High Not Available [address], [address], 02/11/2024 15:40:08 02/11/20 24 02/11/2024 LIPID PANEL direct HDL 52 mg/dL <40 mg/dl - Major Risk for CHD >60 mg/dl - Negat ricardo Risk for CHD Not Available [address], 8[address], 02/11/2024 15:40:08 02/11/20 24 02/11/2024 LDL - [...] r is not neces devora. Not Available [address], [address], 02/11/2024 15:40:08 02/11/20 24 02/14/2024 MICRO ALBUM IN/CR EATIN INE RATIO PANEL , URINE microalbumin 17.3 mg/L 1.3-20 .0 Not Available [address], [address], 02/14/2024 10:11:33 02/11/20 24 02/14/2024 MICRO ALBUM IN/CR EATIN INE RATIO PANEL , URINE creatinine urine 259.8 mg/dL 30.0-1 25.0 high Not Available [address], [address], 02/14/2024 10:11:33 02/11/20 24 02/14/2024 MICRO ALBUM IN/CR EATIN INE RATIO PANEL , URINE microalb/cre at ratio 6.7 mg/g_ creat 0.0-29 .0 Not Available [address], [address], 02/14/2024 10:11:33 05/19/20 24 05/19/2024 HGB A1C [...] furth er confi rmati on Not Available [address], [address], 05/19/2024 15:46:46 05/19/20 24 05/19/2024 HGB A1C estimated average glucose 171.4 mg/dL Not Available [address], [address], 05/19/2024 15:46:46 08/24/1908/24/2024 HGB A1C hemoglobin A1C [...] furth er confi rmati on Not Available [address], [address], 08/24/2024 14:12:11 08/24/1908/24/2024 HGB A1C estimated average glucose 159.9 mg/dL Not Available [address], [address]59, 08/24/2024 14:12:11 08/24/1908/24/2024 LIPID PANEL cholesterol 139 mg/dL <200 mg/dl Yogesh able 200-2 39 mg/dl Borde rline High >240 mg/dl High Not Available [address], [address], 08/24/2024 15:53:20 08/24/19 25 08/24/2024 LIPID PANEL triglyceride s 145 mg/dL <150 mg/dL Mary l 150-1 99 mg/dL Borde rline High 200-4 99 mg/dL High >500 mg/dL Very High Not Available [address], [address]74, 08/24/2024 15:53:20 08/24/19 25 08/24/2024 LIPID PANEL direct HDL 70 mg/dL <40 mg/dl - Major Risk for CHD >60 mg/dl - Negat ricardo Risk for CHD Not Available [address], [address], 08/24/2024 15:53:20 08/24/19 25 08/24/2024 LDL - [...] r is not franny lozoya. Not Available [address], [address], 08/24/2024 15:53:21 08/24/19 25 08/24/2024 COMP. METAB OLIC PANEL glucose 108 mg/dL 70-100 high Not Available [address], [address]11[address], 08/24/2024 16:01:55 08/24/19 25 08/24/2024 COMP. METAB OLIC PANEL BUN 20 mg/dL 7-18 high Not Available [address], [address], 08/24/2024 16:01:55 08/24/19 25 08/24/2024 COMP. METAB OLIC PANEL creatinine 1.5 mg/dL 0.8-1. 3 high Not Available [address], [address]50[address], 08/24/2024 16:01:55 08/24/19 25 08/24/2024 COMP. METAB OLIC PANEL B/C 13.3 ratio Not Available [address], [address], 08/24/2024 16:01:55 08/24/19 25 08/24/2024 COMP. METAB [...] be used in pregn raine. Not Available [address], [address], 08/24/2024 16:01:55 08/24/19 25 08/24/2024 COMP. METAB OLIC PANEL sodium 142 mmol/ L 136-14 5 Not Available [address], [address], 08/24/2024 16:01:55 08/24/19 25 08/24/2024 COMP. METAB OLIC PANEL potassium 4.6 mmol/ L 3.5-5. 1 Not Available [address], [address]5965, 08/24/2024 16:01:55 08/24/19 25 08/24/2024 COMP. METAB OLIC PANEL chloride 101 mmol/ L 96-107 Not Available [address], 255[address], 08/24/2024 16:01:55 08/24/19 25 08/24/2024 COMP. METAB OLIC PANEL anion gap 15.9 5.0-15 .0 high Not Available [address], [address]361, 08/24/2024 16:01:55 08/24/19 25 08/24/2024 COMP. METAB OLIC PANEL CO2 25 mmol/ L 21-32 Not Available [address], 8[address], 08/24/2024 16:01:55 08/24/19 25 08/24/2024 COMP. METAB OLIC PANEL calcium 10.9 mg/dL 8.5-10 .3 high ANA LILIA=V erifi ed by Shwetha cedillo Not Available [address], [address], 08/24/2024 16:01:55 08/24/19 25 08/24/2024 COMP. METAB OLIC PANEL total protein 8.8 g/dL 6.4-8. 2 high Not Available [address], 6[address], 08/24/2024 16:01:55 08/24/19 25 08/24/2024 COMP. METAB OLIC PANEL albumin 4.6 g/dL 3.4-5. 0 Not Available [address], [address]356, 08/24/2024 16:01:55 08/24/19 25 08/24/2024 COMP. METAB OLIC PANEL globulin 4.2 g/dL Not Available [address], [address]13, 08/24/2024 16:01:55 08/24/19 25 08/24/2024 COMP. METAB OLIC PANEL A/G 1.1 ratio 0.8-2. 0 Not Available [address], [address], 08/24/2024 16:01:55 08/24/19 25 08/24/2024 COMP. METAB OLIC PANEL total bilirubin 0.60 mg/dL 0.00-1 .00 Not Available [address], [address]65, 08/24/2024 16:01:55 08/24/19 25 08/24/2024 COMP. METAB OLIC PANEL AST 29 U/L 0-37 Not Available [address], [address], 08/24/2024 16:01:55 08/24/19 25 08/24/2024 COMP. METAB OLIC PANEL ALT 27 U/L 6-63 Not Available [address], [address]773, 08/24/2024 16:01:55 08/24/19 25 08/24/2024 COMP. METAB OLIC PANEL alk. phos. 54 U/L 50-136 Not Available [address], [address], 08/24/2024 16:01:55 08/24/19 25 08/30/2024 ALBUM IN, RANDO M URINE W/CRE ATINI NE creatinine, random urine 243 mg/dL 20-320 normal Not Available [facility] [address], [address], 08/30/2024 18:13:36 08/24/19 25 08/30/2024 ALBUM IN, RANDO M URINE W/CRE ATINI NE albumin, urine 1.8 mg/dL normal Refer ence Range Not estab lishe d Not Available [facility] [address], [address], 08/30/2024 18:13:36 08/24/19 25 08/30/2024 ALBUM IN, [...] a diagn ostic categ ory. Not Available [facility] [address] Rell Hicks, Luis A, [place], [address], 08/30/2024 18:13:36 04/11/20 24 04/11/2024 US liver [...] R ART N IMMANUEL R ART N [facility] [address] [place] [address], [address], 04/28/2024 18:24:04 04/11/20 24 04/11/2024 US, liver No observ ation record ed. [email or web address] [address], [address], 04/28/2024 16:26:08 Result Notes None recorded. Problems Name Problem SNOMED Code Status Onset Date Resolution Date Notes Provider Name and Address Organization Details Recorded Time Pure hypergly ceridemi a 474094448 Active 2007 Not Available [facility] 4 05:31:29 Gastroes ophageal reflux disease 180209986 Active Not Available [facility] 4 05:31:29 Abdomina l pain 63712621 Completed 07/12/2013 Not Available [facility] 3 02:01:24 Right upper quadrant pain 787507338 Completed 200807/12/2013 Not Available [facility] 3 02:03:18 Pure hypercho lesterol emia 416556624 Completed 200706/02/2021 Removal Reason: really is just TG Immanuel Krishna MD [address] [place] [address], [phone] [facility] 16:25:08 Prediabe benton [id number] Completed 202006/02/2021 Removal Reason: transiti on to DMT2 Immanuel Krishna MD [address] [place] [address], [phone] , [facility] 16:25:20 Non-alco holic fatty liver 097524006 Active 2020 Not Available [facility] 4 05:31:29 History of pancreat itis 00978200726 107 Active 2020 Not Available [facility] 4 05:31:29 Type 2 diabetes mellitus without complica tion 091163123 Active 2022 coded 11/19/21 Virtual Visit Not Available [facility] 4 05:31:29 Uncontro lled type 2 diabetes mellitus 957358824 Active 2022 Not Available [facility] 4 05:31:29 Notes:Some problems listed i n Documents: #[id number], #[id number] could not be added to this patient's chart. Please review these documents and add these problems to the patient's chart manually as needed. Problem Notes None recorded. Procedures Surgical History Date Name Laterality Status Provider Name and Address Organization Details Recorded Time 06/10/20 23 Insulin Teaching completed Arlene Thomson RN [facility] 06/10/2023 15:23:46 02/13/20 21 cholecystectomy completed Arlene Thomson RN [facility] 06/02/2021 15:20:06 10/05/19 20 Tassoni - EGD completed Sharad Horn MD [address] [place] [address], [phone] 10/05/2019 12:39:37 Imaging Results Imaging Date Name Status LastModified by Organization Details LastModified Time 04/11/2024 US liver with elastography completed [facility] [address] [place], [address], 04/28/2024 18:24:04 04/11/2024 [email or web address] [address] [place], [address], 04/28/2024 16:26:08 Procedure Notes None recorded. Medical Equipment None Reported. Allergies Allergen ID Allergen Name Allergen Category Reaction Reaction Severity Criticality Documentation Date Start Date Code Code System Note Provider Name and Address Organization Details Recorded Time 432168 gabapenti n medicatio n headache Not available Not available 04/06/2012 01147 [facility] 14:52:44 358201 Lyrica medicatio n Not available Not available Not available 04/06/2012 65531 1 RxNorm tight ness in throa t, not swell ing Zaira López MA [facility] 2 14:52:44 8288 Pepcid medicatio n rash Not available Not available 11/29/2008 84256 8 RxNorm GI upset Not Available [facility] 1 06:05:20 8289 Advil medicatio n nausea vomiting Not available Not available Not available 11/29/2008 [id number] RxNorm Not Available [facility] 1 06:05:20 Medications Name Sig Start [...] completed Not Available Not Available Not Available sildenafi l 50 mg tablet TAKE 1 TABLET BY MOUTH ONCE DAILY NEEDED active Not Available Not Available No t Available azithromy opal 250 mg tablet TAKE 2 TABLETS BY MOUTH TODAY, THEN TAKE 1 TABLET DAILY FOR 4 DAYS 09/29 completed Not Available Not Available Not Available alprazola m 1 mg tablet TAKE 1 TABLET BY MOUTH 1 HOUR BEFORE MRI SCAN active Not Available Not Available No t Available tizanidin e 4 mg tablet TAKE [...] Available prednison e 20 mg tablet TAKE 2 TABLETS BY MOUTH EVERY DAY FOR 5 DAYS active Not Available Not Available No t Available clobetaso l 0.05 % topical cream APPLY TWICE DAILY TO CTCL RASH UP TO 2 WEEKS/MO NTH NEEDED. active Not Available Not Available No t Available Accu-Chek Softclix Lancets USE TO TEST [...] mg tablet TAKE 1 TABLET BY MOUTH UP TO ONCE A DAY AT BEDTIME NEEDED FOR SLEEP. active Not Available Not Available No t Available pioglitaz one 30 mg tablet TAKE 1 TABLET BY MOUTH EVERY DAY 2024 active Not Available Not Available Not Avai lable Naprosyn 500 mg tablet active Take 1:00 tab. b.i.d. prn Not Available Not Available Not Available ketoconaz ole 2 % topical cream APPLY THIN LAYER TO RASH ON CHEST TWICE A DAY UNTIL CLEAR AND NEEDED FOR FLARES. active Not Available Not Available No t Available betametha sone dipropion ate 0.05 % [...] Not Available Not Available No t Available Prilosec OTC 20 mg tablet,de layed release [...] 1 TABLET BY MOUTH EVERY 6 HOURS active Not Available Not Available No t Available fenofibra te 54 mg tablet TAKE 2 TABLETS BY MOUTH EVERY DAY active Not Available Not Available No t Available Tussin 100 mg/5 mL oral liquid TAKE 10ML BY MOUTH EVERY 4 HOURS NEEDED FOR COUGH 09/29 completed Not Available Not Available Not Available Creon 12,000-38 ,000-60,0 00 unit capsule,d elayed release PLEASE SEE ATTACHED FOR DETAILED DIRECTIO NS [...] t Available Vitals Date Recorded Body height Body mass index (BMI) Body weight Heart rate Systolic blood pressure Diastolic blood pressure Provider Name and Address Organization Details Last Updated DateTime 01/24/202 4 164.47 cm 30 kg/m2 39832.7 5 g 98 /min 118 mm[Hg] 74 mm[Hg] Naila Burch, [facility] 4 12:29:06 Date Recorded Body height Body mass index (BMI) Body weight Heart rate Systolic blood pressure Diastolic blood pressure Provider Name and Address Organization Details Last Updated DateTime 164.47 cm 29.4 kg/m2 05612.1 g 93 /min 120 mm[Hg] 78 mm[Hg] Alicja Urena [facility] 12:21:27 Date Recorded Body height Body mass index (BMI) Body weight Provider Name and Address Organization Details Last Updated DateTime 08/03/2024 164.47 cm 27.2 kg/m2 18599.32 g Arlene Thomson RN [facility] 08/03/2024 10:22:22 Social History Question Answer Notes LastModified by Organizat ion Details LastModified Time Tobacco Smoking Status Never Smoker denies Not Available [facility] 01/15/2011 02:08:11 What Is Your Level Of [...] by Organization Details LastModified Time Mother Hyperlipidem ia chace Not available 10/2015 14:32:27 Notes:mother 73 live diabete s HTN, hypercholesterolemia, dialysis secondary-2015 father 84 live no contact, CABG x 4 in 80's 6 sisters live, healthy generally, one with asthma. MGM of [place] at age 60's 11/08- Family OK. 06/10- Sisters healthy. No kids. 06/12: family OK. Mom alive in [place] (76). 11/11: Family OK. 10/15: No changes. Medical History Condition Response Hyperlipidemia Y Immunizations Vaccine Type Date Status Note Provider Nam e and Address Organization Details Recorded Time COVID-19, mRNA, LNP-S, PF, 30 mcg/0.3 mL dose 12/25/2020 completed Not Available [facility] 4 05:31:29 COVID-19, mRNA, LNP-S, PF, 30 mcg/0.3 mL dose 07/09/2021 completed Not Available [facility] 4 05:31:29 COVID-19, mRNA, LNP-S, bivalent, PF, 30 mcg/0.3 mL dose 06/24/2022 completed Not Available [facility] 4 05:31:29 Past Encounters Encounter ID Performer Location Encounter Start Date Encounter Closed Date Diagnosis/Indication Diagnosis SNOMED-CT Code Diagnosis ICD10 Code Diagnosis Note [id number] Endocrino logy, [address] [address] 08/01/2008 07:59:32 09/12/2008 02:02:29 [id number] LAB - [address] [address] 08/01/2008 09:36:52 08/01/2008 09:37:01 [id number] Endocrino logy, [address] [address] 09/06/2008 09:44:29 09/12/2008 02:02:29 [id number] Endocrino logy, [address] [address] 11/29/2008 13:02:54 12/06/2008 10:58:31 [id number] Endocrino logy, [address] [address] 01/04/2009 11:04:31 01/17/2009 10:41:04 [id number] Endocrino logy, [facility] [place] [address] 04/10/2009 10:13:41 04/10/2009 11:21:46 [id number] LAB - [facility] [place] [address] 1 04/10/2009 10:55:35 04/10/2009 10:55:41 [id number] Endocrino logy, [facility] [place] [address] 1 07/03/2009 08:02:14 07/08/2009 09:17:02 [id number] Endocrino logy, [facility] [place] [address] 1 09/06/2009 10:43:36 09/06/2009 14:16:58 [id number] Endocrino logy, [facility] [place] [address] 1 11/08/2009 10:42:53 11/08/2009 12:44:26 [id number] Endocrino logy, [facility] [place] [address] 1 04/23/2010 09:50:35 04/23/2010 11:10:07 [id number] Endocrino logy, [facility] [place] [address] 03/05/2011 10:44:54 03/05/2011 11:57:46 [id number] Endocrino logy, [facility] [place] [address] 1 06/04/2011 11:01:31 06/04/2011 12:36:05 [id number] Endocrino logy, [facility] [place] [address] 09/30/2011 14:47:07 09/30/2011 15:24:03 [id number] Endocrino logy, [facility] [place] [address] 04/06/2012 14:13:03 04/06/2012 15:50:32 [id number] Bhupendra Marroquin PA-C Endocrino logy, [facility] [address] 06/20/2012 10:40:38 06/20/2012 11:56:35 [id number] Simona Santoyo Endocrino logy, [facility] [place] [address] 12/22/2012 08:45:34 12/22/2012 09:34:51 [id number] Nutrition -[address] [address] 03/03/2013 13:15:39 03/03/2013 14:51:58 [id number] Endocrino logy, [address] [address] 06/28/2013 09:11:53 06/28/2013 09:57:10 Pure hyperglyceridemia 124275088 Pt TG 800's but he admits he [...] Aug 2011. Pt had testing Dec at [facility] as well and is to have f/u studies yearly with them. Hx- Pt on crestor because statin, tricor and lopid all have not worked for patient (see previous records). Niacin caused burning pain and flushing even with asa and being taken at night. Never tried with pectin. [id number] Bhupenrda Marroquin PA-C [facility], [address] [address] 09/28/2013 10:14:45 09/28/2013 11:21:39 Pure hyperglyceridemia 487774058 hx==Pancre atic mass stable on MRI of Aug 2011. Pt had testing Dec at [facility] as well and is to have f/u studies yearly with them. Hx- Pt on crestor because statin, tricor and lopid all have not worked for patient (see previous records). Niacin caused burning pain and flushing even with asa and being taken at night. Never tried with pectin. [id number] Lety Alcala Endocrino logy, [address] [address] 01/04/2014 10:24:55 01/04/2014 11:09:12 Pure hyperglyceridemia [id number] hx==Pancre atic mass stable on MRI of Aug 2011. Pt had testing Dec at [facility] as well and is to have f/u studies yearly with them. Hx- Pt on crestor because statin, tricor and lopid all have not worked for patient (see previous records). Niacin caused burning pain and flushing even with asa and being taken at night. Never tried with pectin. [id number] Endocrino logy, [address] [address] 04/09/2014 09:59:26 04/09/2014 10:37:00 Pure hyperglyceridemia 157270259 hx==Pancre atic mass stable on MRI of Aug 2011. Pt had testing Dec at [facility] as well and is to have f/u studies yearly with them. Hx- Pt on crestor because statin, tricor and lopid all have not worked for patient (see previous records). Niacin caused burning pain and flushing even with asa and being taken at night. Never tried with pectin. [id number] Evelia Darrin Endocrino logy, [address] [address] 12/11/2014 15:05:55 12/11/2014 15:46:15 Pure hyperglyceridemia 720520221 cont crestor 40 mg and fenofibrat e [...] Aug 2011. Pt had testing Dec at [facility] as well and is to have f/u studies yearly with them. Hx- Pt on crestor because statin, tricor and lopid all have not worked for patient (see previous records). Niacin caused burning pain and flushing even with asa and being taken at night. Never tried with pectin. Palpitations 17401490 Wi ll check TSH with upcoming labs [...] cancel when he had the flu. Constipation 08376651 se e above. [id number] Bhupendra Marroquin PA-C [facility]ocr[facility], [address] [address] 12/24/2015 13:38:45 12/24/2015 14:48:59 Chest pain 02520781 R07.9 SOB and racing heart concerning . [...] of CABG x4 in father. Pure hyperglyceridemia 228989035 E78.1 Cont fenfibrate 54mg take 2 tabs daily and labs again in 3 months. TG stable and LDL stable. [id number] Bhupendra Marroquin PA-C [facility], [address] [address] 01/14/2017 14:12:47 01/14/2017 15:24:44 Pure hyperglyceridemia 270072674 E78.1 Order in chart for labs and [...] mg daily. TG stable and LDL stable. [id number] Bhupendra Marroquin PA-C [facility], [address] [address] 03/01/2018 11:04:10 03/01/2018 11:51:38 Pure hyperglyceridemia 283765540 E78.21 October 2017 labs to goal. Cont fenofibrat e 54 mg- 2 tabs daily and rosuvastat in 40 mg daily. Continue to work on diet and exercise and f/u in a year with labs every 3-6 months. (can be q 6 months as long as lipids stable) If TG rise then will have him come in sooner than a year. Chronic pancreatitis 235 731345 K86.1 hx of recurrent pancreatit is with recent episode October 2017. Sees GI and has f/u May Dr. Flor. Not symptomati c today. TG stable (see above) counseled him regarding ETOH, diet and lifestyle to prevent recurrent episodes. Functional disorder of intestine 80184014 K59.9 Per pt, intestinal obstructio n/dysmotil ity in October 2017. Requesting records from [place] for chart and review. Advised pt to contact PCP about referral to different surgeon if not able to get reschedule d with original surgeon since has been changed by office twice now per pt report. He indicates he will call Dr. Lyon to see how to proceed. [id number] Bhupendra Marroquin PA-C Endocr[facility], [address] [address] 09/13/2018 10:59:09 09/13/2018 11:54:10 Pure hyperglyceridemia 787080312 E78.1 Need to find records from hospitaliz [...] up after updated labs. Chronic pancreatitis 235 421104 K86.1 hx of recurrent pancreatit is with recent episode October 2017.Now with 2 more episodes. There is no endocrine reason for pancreatit is. TG in 300's do not cause pancreatit is. Needs to be sure with GI that gallstone pancreatit is and other causes are not present. Pt needing to f/u in [place] per GI here. Pt previously saw Dr. Flor. Pt not symptomati c today Functional disorder of intestine 62074609 K59.9 Per pt, intestinal obstructio n/dysmotil ity dg in October 2017. Again no records of this have been received since diagnosis. Pt needing to have f/u with GI in [place] and needing to follow up with both PCP and GI office to see when appt from referral is scheduled. Blood gluc ose outside reference range 583785717 R73.09 reported abnormal A1c meeting criteria for [...] glucose.If IFG then would NOT use actos. [id number] Immanuel Krishna MD [facility], [address] [address] 11/18/2018 13:48:23 11/18/2018 14:40:03 Pure hyperglyceridemia 548265828 E78.1 TG consistent ly between 250-350 on max rosuvastat in and low dose fenofibrat e. Continue current regimen. Prediabetes 057997498 R7 3.03 with FBG consistent ly under [...] PCP [place] about this. History of pancreatitis 8025122089 9107 Z87.19 Doesn't seem to be primarily related to TG since he has had bouts when TG were only in 300s. Liver func tion tests outside reference range 770651787 R94.5 ast/alt= 66/48; was 85/70 in 05.10.May be c/w fatty liver.This would another reason to consider meds to improve insulin sensitivit y.Pioglita zone at low dose might be worth considerin g- would improve TG and help fatty liver. [id number] Immanuel Krishna MD [facility], [address] [address] 05/24/2019 13:35:37 05/24/2019 15:01:28 Pure hyperglyceridemia 215869619 E78.1 Started pioglitazo ne in 11/2018. TG slightly down. Will be interested to see if less fatty liver.Sugg est liver u/s soon but he is going to [place] in 07/19/19. Had MRI done 2-3 weeks ago.Hope to see copy of report for that. TG have been between 250-350 on max rosuvastat in and low dose fenofibrat e.Down to 230 on kelvin 30 mg. Hope to see further improvemen Lopez discussed importance of exercise.A gree needs to meet with RD- can be either through PCP or can be done here. Prediabetes 323685930 R7 3.03 With FBG consistent ly under [...] try 15 mg bid. History of pancreatitis 1422142529 9107 Z. Doesn't seem to be primarily related to TG since he has had bouts when TG were only in 300s. Non-alcoho lic fatty liver 725613518 K76.0 ast= 43 (05/11; was 66); was [...] pioglitazo ne x 3 months consistent ly [id number] Ness Yeung RN [facility], [address] [address] 10/05/2019 11:30:52 10/05/2019 13:41:26 [id number] Immanuel Krishna MD [facility], [address] [address] 02/07/2020 14:47:33 02/08/2020 07:38:24 Pure hyperglyceridemia 568536683 E78.1 Started pioglitazo ne in 11/2018. TG slightly down. Had wanted to have him get liver u/s but he was going to [place] in 07/19/19. Had MRI done 2-3 weeks ago.Hope to see copy of report for that. None received in 2019. TG have been between 250-350 on max rosuvastat in and low dose fenofibrat e.Down to 230 on kelvin 30 mg.02/09: 156/227 (was 230) / Stable and not increasing Also discussed importance of exercise. Prediabetes 212154303 R7 3.03 With FBG consistent ly under [...] 15 mg bid. Non-alcoho lic fatty liver 489378467 K76.0 AST= 36 (02/09): was 43 (05/11); [...] 3 months consistent ly History of pancreatitis 2597288539 9107 Z87. Doesn't seem to be primarily related to TG since he has had bouts when TG were only in 300s. [id number] Immanuel Krishna MD Endocr[facility], [address] [address] 10/01/2020 13:38:02 10/01/2020 18:29:21 Pure hyperglyceridemia 532485403 E78.1 Started pioglitazo ne in 11/2018. TG slightly down. Had wanted to have him get liver u/s but he was going to [place] in 07/19/19. TG better at 153 in 10/13. was 227 (02/09); was 230 (05/11); was 314 (11/08); No recent images studies. MRI at [facility] showed hepatic steatosis without focal pancreatic lesions (04/2019). JR López. TG have been between 250-350 on max rosuvastat in and low dose fenofibrat e. Down to 230 on kelvin 30 mg. 02/09: 156/227 (was 230) /47 / 64 Stable and not increasing Also discussed importance of exercise. Prediabetes 088122907 R7 3.03 With FBG consistent ly under [...] 15 mg bid. Non-alcoho lic fatty liver 736537646 K76.0 AST= 45 (10/13); was 36 (02/09): [...] will update liver u/s History of pancreatitis 6903657005 9107 Z87. Doesn't seem to be primarily related to TG since he has had bouts when TG were only in 300s. Has ongoing intermitte nt pain. [id number] Immanuel Krishna MD Endocrino logy, [address] [address] 06/02/2021 15:07:09 06/02/2021 19:12:29 Pure hyperglyceridemia 585488635 E78.1 Started pioglitazo ne in 11/2018. TG slightly down. Had wanted to have him get liver u/s but he was going to [place] in 07/19/19. VE=589 (06/12); was 209 (04/12); was 153 (10/13); was 227 (02/09); was 230 (05/11); was 314 (11/08);Hig hest was 1914 in 2007. Was 877 in 07/05.TG were between 250-350 on max rosuvastat in and low dose fenofibrat e. Some improvemen t on kelvin 30 mg. but mostly stable in low 200s. Stable and not increasing Had U/S in 10/13 confirming NAFLD. MRI at [facility] showed hepatic steatosis without focal pancreatic lesions (04/2019).M RI might be better if want to see if any changes.GI - [facility] in [place]. Non-alcoho lic fatty liver 488293847 K76.0 AST= 59 (06/12); was 43 (04/12); [...] actually following liver status. Reached Dr. Valdez ([facility]) and discussed case.She notes that his [...] help with scoring severity History of pancreatitis 3402849099 9107 Z87.19 Doesn't seem to be primarily related to TG since he has had bouts when TG were only in 300s.Much less pain since GB out (per pt) in 02/10.Now on Creon 06/12: Left message to discuss incretin use with José Miguel *[facility]* Incretin has potential rare s/e of pancreatit is but since DM and Type 2 sebas betes mellitus 29338448 E11.9 New dx in 06/12- Has transition [...] to discuss with GI ([facility] in [place]) to see what she feels his risk is for future bouts of pancreatit is. Other option would be to go with metformin for T2DM but not much benefit for NAFLD. Reached Dr. Valdez ([facility]) and discussed case.She notes that his pancreatit is was likely more biliary in etiology. Since GB out, he may well not have as high a risk as previously . In addition, she says he did not have evidence of severe chronic pancreatic damage (calcifica tions, etc.). Discussed that imaging to better stage NAFLD may be helpful in making decision. [id number] Immanuel Krishna MD Endocrino logy, [address] [address] 11/19/2021 16:39:13 11/20/2021 19:18:45 Pure hyperglyceridemia 088585110 E78.1 Started pioglitazo ne in 11/2018. TG [...] U/S in 10/13 confirming NAFLD. MRI at [facility] showed hepatic steatosis without focal pancreatic lesions (04/2019).M [place] might be better if want to see if any changes. 08/12: Elastograp hy: IGR to median ratio is <15% so liver stiffness is acceptable .[facility]- [facility] in [place]. Type 2 sebas betes mellitus 06137067 E11.9 Since 06/12 (a1c values 6.5 and [...] will add much. Non-alcoho lic fatty liver 787301827 K76.0 AST= 50 (11/11); was 39 (08/12); [...] liver. Previous conversati on with Dr. Valdez ([facility]) in 2020.She noted that his pancreatit [...] with scoring severityNA FLD score= 1.1 (https://w roxi.ACE culator.co m/health/n afld-fibro sis-score) FIB4 calculatio n: 1.85 (https://w roxi.[facility]edu /page/clin ical-calcu lators/fib -4)FIB-4 score <1.45 had a negative predictive value of 90% for advanced fibrosis (includes early bridging fibrosis to cirrhosis) .FIB-4 >3.25 has a 97% specificit y and a positive predictive value of 65% for advanced fibrosis. Appears that patient is less likely to have advanced fibrosis. History of pancreatitis 4255009860 9107 Z87.19 Doesn't seem to be primarily related to TG since he has had bouts when TG were only in 300s.Much less pain since GB out (per pt) in 02/10.Now on Creon José Miguel ([facility]) reports his pancreatit is was likely more biliary in etiology. Still, have to weigh benefits of incretin (GLP1-RA) against rare risk of pancreatit is [id number] Immanuel Krishna MD Endocrino logy, [address] [address] 09/29/2022 15:13:09 10/02/2022 09:57:01 Pure hyperglyceridemia 845024822 E78.1 Has been on rosuva 40 and [...] U/S in 10/13 confirming NAFLD. MRI at [facility] showed hepatic steatosis without focal pancreatic lesions (04/2019).M RI might be better if want to see if any changes. 08/12: Elastograp hy: IGR to median ratio is <15% so liver stiffness is acceptable .10/15: Clinically stable. If increases further, could increase fenofibrat e or consider vascepa. GI- [facility] in [place]. Type 2 sebas betes mellitus 46795999 E11.9 Since 06/12 (a1c values 6.5 and [...] benefit for NAFLD. Non-alcoho lic fatty liver 369534520 K76.0 AST= 35 (06/13); was 50 (11/11); [...] liver. Previous conversati on with Dr. Valdez ([facility]) in 2020.She noted that his pancreatit [...] of low dose incretin. History of pancreatitis 3709102555 9107 Z87.19 Doesn't seem to be primarily related to TG since he has had bouts when TG were only in 300s.Much less pain since GB out (per pt) in 02/10.Now on Creon José Miguel ([facility]) reports his pancreatit is was likely more biliary in etiology. Still, have to weigh benefits of incretin (GLP1-RA) against rare risk of pancreatit is [id number] Immanuel Krishna MD Endocrino logy, [address] [address] 09/15/2023 12:13:03 09/20/2023 07:15:34 Pure hyperglyceridemia 210897814 E78.1 Uncontroll ed GI- [facility] in [place]. Has been on rosuva 40 and fenofibrat [...] U/S in 10/13 confirming NAFLD. MRI at [facility] showed hepatic steatosis without focal pancreatic lesions (04/2019).M RI might be better if want to see if any changes. 08/12: Elastograp hy: IGR to median ratio is <15% so liver stiffness is acceptable .10/15: Clinically stable. If increases further, could increase fenofibrat e or consider vascepa. 09/15: change fenofibrat e from 108 to 120 (single pill) Type 2 sebas betes mellitus 47190671 E11.9 Uncontroll ed A1c values have increased [...] NAFLD. Previous conversati on with Dr. Valdez ([facility]) in 2020.She noted that his pancreatit [...] glucose values improving. Non-alcoho lic fatty liver 621246656 K76.0 AST= 22 (09/15) was 35 (06/13); [...] liver. Previous conversati on with Dr. Valdez ([facility]) in 2020. reviewed again 2022.She noted [...] of low dose incretin. History of pancreatitis 7222369986 9107 Z87.19 Doesn't seem to be primarily related to TG since he has had bouts when TG were only in 300s.Much less pain since GB out (per pt) in 02/10.Now on Stephanie Valdez ([facility]) reports his pancreatit is was likely more biliary in etiology. Still, have to weigh benefits of incretin (GLP1-RA) against rare risk of pancreatit is Uncontroll ed type 2 diabetes mellitus 121913459 E11.65 a1c= 8.1 (09/15); was 8.9 (05/15) was 8.7 (per pt by PCP POC); 8.2 (02/12); was 7.7 (01/12) was 7.1 (10/15); was 6.8 (06/13 and 03/13);Piog litazone only (to try and help with high TG and fatty liver Options:BREWER - increased risk for extuPIKU5v - increased risk for GUincretin - risk for pancreatit is but he hasn't had any severe bouts since GB out.He didn't tolerate metformin when tried in past. Metformin not much benefit for NAFLD. Tolerating trulicity 0.75. Try increase to 1.5. [id number] Immanuel Krishna MD Endocr[facility], [address] [address] 05/18/2023 12:46:50 05/18/2023 16:51:51 Pure hyperglyceridemia 563453457 E78.1 Has been on rosuva 40 and [...] U/S in 10/13 confirming NAFLD. MRI at [facility] showed hepatic steatosis without focal pancreatic lesions (04/2019).M RI might be better if want to see if any changes. 08/12: Elastograp hy: IGR to median ratio is <15% so liver stiffness is acceptable .10/15: Clinically stable. If increases further, could increase fenofibrat e or consider vascepa.: reports had MRI thru [place]. No recent bouts of pancreatit is. Previou s conversati on with Dr. Valdez ([facility]) in 2020.She noted that his pancreatit is was likely more biliary in etiology. Since GB out, he may well not have as high a risk as previously . In addition, she says he did not have evidence of severe chronic pancreatic damage (calcifica tions, etc.)[facility] - [facility] in [place].: left message with GI- want to update and confirm OK to try incretin. Non-alcoho lic fatty liver 210664291 K76.0 Mostly OK in 2021 and 2022. AST generally higher than ALT.In NAFLD, pattern is usually that ALT > AST Pioglitazo ne prescribed in early 12/09 but not refilled until late 02/08 and then in late 05/11. However, seems to be helping with TG and LFTs likely from fatty liver. Previous conversati on with Dr. Valdez ([facility]) in 2020.She noted that his pancreatit [...] with scoring severityNA FLD score= 1.1 (https://w roxi.[facility].co m/health/n afld-fibro sis-score) FIB4 calculatio n: 1.85 (https://gwyn diane.hepatit is[facility]..edu /page/clin ical-calcu lators/fib -4)FIB-4 score <1.45 [...] try low dose incretin. History of pancreatitis [id number] 9107 Z87.19 Doesn't seem to be primarily related to TG since he has had bouts when TG were only in 300s.Much less pain since GB out (per pt) in 02/10.Now on Creoscar Valdez ([facility]) reports his pancreatit is was likely more biliary in etiology. Still, have to weigh benefits of incretin (GLP1-RA) against rare risk of pancreatit is Uncontroll ed type 2 diabetes mellitus [id number] E11.65 a1c= 8.7 (per pt by PCP POC); 8.2 (02/12); was 7.7 (01/12) was 7.1 (10/15); was 6.8 (06/13 and 03/13);Piog litazone only (to try and help with high TG and fatty liver Options:BREWER - increased risk for [id number] - increased risk for GUincretin - risk for pancreatit is but he hasn't had any severe bouts since GB out.He didn't tolerate metformin when tried in past. Metformin not much benefit for NAFLD. - message to GI (José Miguel) 05/15. [id number] Arlene Thomson, RN Endocrino logy, [address] [phone] 06/10/2023 10:01:00 06/10/2023 15:44:28 Pure hyperglyceridemia [id number] E78.1 Has been on rosuva 40 and [...] U/S in 10/13 confirming NAFLD. [place] [facility] [place] hepatic steatosis without focal pancreatic lesions (04/2019).M RI might be better if want to see if any changes. 08/12: Elastograp hy: IGR to median ratio is <15% so liver stiffness is acceptable .10/15: Clinically stable. If increases further, could increase fenofibrat e or consider vascepa.: reports had MRI thru [facility]. No recent bouts of pancreatit is. Previou s conversati on with Dr. Valdez ([facility]) in 2020.She noted that his pancreatit is was likely more biliary in etiology. Since GB out, he may well not have as high a risk as previously . In addition, she says he did not have evidence of severe chronic pancreatic damage (calcifica tions, etc.)GI - José Miguel in [place].: left message with GI- want to update and confirm OK to try incretin. Uncontroll ed type 2 diabetes mellitus [id number] E11.65 a1c= 8.7 (per pt by PCP POC); 8.2 (02/12); was 7.7 (01/12) was 7.1 (10/15); was 6.8 (06/13 and 03/13);Piog litazone only (to try and help with high TG and fatty liver Options:BREWER - increased risk for [id number] - increased risk for GUincretin - risk for pancreatit is but he hasn't had any severe bouts since GB out.He didn't tolerate metformin when tried in past. Metformin not much benefit for NAFLD. - message to GI (José Miguel) 05/15. Non-alcoho lic fatty liver [id number] K76.0 Mostly OK in 2021 and 2022. AST generally higher than ALT.In NAFLD, pattern is usually that ALT > AST Pioglitazo ne prescribed in early 12/09 but not refilled until late 02/08 and then in late 05/11. However, seems to be helping with TG and LFTs likely from fatty liver. Previous conversati on with Dr. Valdez ([facility]) in 2020.She noted that his pancreatit [...] with scoring severityNA FLD score= 1.1 (https://w ww.[facility] culator.co m/health/n afld-fibro sis-score) FIB4 calculatio n: 1.85 (https://w roxi.[facility]..edu /page/clin ical-calcu latdominick/fib -4)FIB-4 score <1.45 had a negative predictive [...] try low dose incretin. History of pancreatitis [id number] 9107 Z87.19 Doesn't seem to be primarily related to TG since he has had bouts when TG were only in 300s.Much less pain since GB out (per pt) in 02/10.Now on Stephanie Valdez ([facility]) reports his pancreatit is was likely more biliary in etiology. Still, have to weigh benefits of incretin (GLP1-RA) against rare risk of pancreatit is [id number] Immanuel Krishna MD Endocrino logy, [address] [address] 06/25/2023 09:42:36 06/28/2023 07:55:00 Pure hyperglyceridemia [id number] E78.1 Has been on rosuva 40 and [...] U/S in 10/13 confirming NAFLD. MRI at [facility] showed hepatic steatosis without focal pancreatic lesions (04/2019).M RI might be better if want to see if any changes. 08/12: Elastograp hy: IGR to median ratio is <15% so liver stiffness is acceptable .10/15: Clinically stable. If increases further, could increase fenofibrat e or consider vascepa.: reports had MRI thru [facility]. No recent bouts of pancreatit is.07/15: Pt reports had CT recently. Try to get results. Previou s conversati on with Dr. Valdez ([facility]) in 2020.She noted that his pancreatit [...] liver. Uncontroll ed type 2 diabetes mellitus [id number] E11.65 a1c= 8.9 (05/15); was 8.2 (02/12); was 7.7 (01/12) was 7.1 (10/15); was 6.8 (06/13 and 03/13); Pioglitazo ne to try and help with high TG and fatty liverHe didn't tolerate metformin when tried in past. Metformin not much benefit for NAFLD. Trulicity started and now at 0.75.Would like to increase but want to get results of CT from [place] [facility] first. Non-alcoho lic fatty liver [id number] K76.0 Mostly OK in 2021 and 2022. ast/alt= 38/36 (02/12)AST has generally been higher than ALT. In NAFLD, pattern is usually that ALT > AST Pioglitazo ne prescribed in early 12/09 but not refilled until late 02/08 and then in late 05/11. However, seems to be helping with TG and LFTs likely from fatty liver. Previous conversati on with Dr. Valdez ([facility]) in 2020.She noted that his pancreatit [...] with scoring severityNA FLD score= 1.1 (https://w roxi.[facility].co m/health/n afld-fibro sis-score) FIB4 calculatio n: 1.85 (https://w roxi.[facility]it [facility] /page/clin ical-calcu lators/fib -4)FIB-4 score <1.45 had [...] help liver and BG) History of pancreatitis [id number] 9107 Z87.19 Doesn't seem to be primarily related to TG since he has had bouts when TG were only in 300s.Much less pain since GB out (per pt) in 02/10.Now on Creon José Miguel ([facility]) reports his pancreatit is was likely more biliary in etiology. [id number] Immanuel Krishna MD Endocrino logy, [address] [phone] 10/28/2023 12:55:15 10/28/2023 13:41:48 Pure hyperglyceridemia [id number] E78.1 Uncontroll ed GI- José Miguel in [place]. Has been on rosuva 40 and fenofibrat [...] U/S in 10/13 confirming NAFLD. MRI at [facility] showed hepatic steatosis without focal pancreatic lesions (04/2019).M RI might be better if want to see if any changes. 08/12: Elastograp hy: IGR to median ratio is <15% so liver stiffness is acceptable .10/15: Clinically stable. If increases further, could increase fenofibrat e or consider vascepa. 09/15: change fenofibrat e from 108 to 120 (single pill) Uncontroll ed type 2 diabetes mellitus [id number] E11.65 a1c= today; was 8.1 (09/15); was 8.9 (05/15) was 8.7 (per pt by PCP POC); 8.2 (02/12); was 7.7 (01/12) was 7.1 (10/15); was 6.8 (06/13 and 03/13);Piog litazone only (to try and help with high TG and fatty liver Options:BREWER - increased risk for [id number] - increased risk for GUincretin - risk [...] depend on results. Non-alcoho lic fatty liver [id number] K76.0 AST= 22 (09/15) was 35 (06/13); [...] liver. Previous conversati on with Dr. Valdez ([facility]) in 2020. reviewed again 2022.She noted [...] with scoring severityNA FLD score= 1.1 (https://w ww.ACE culator.co m/health/n afld-fibro sis-score) FIB4 calculatio n: [...] of low dose incretin. History of pancreatitis [id number] 9107 Z87.19 Doesn't seem to be primarily related to TG since he has had bouts when TG were only in 300s.Much less pain since GB out (per pt) in 02/10.Now on Stephanie Valdez ([facility]) reports his pancreatit is was likely more biliary in etiology. Still, have to weigh benefits of incretin (GLP1-RA) against rare risk of pancreatit is [id number] Immanuel Krishna MD Endocrino logy, [address] [phone] 12/07/2023 12:48:58 12/10/2023 13:40:08 Pure hyperglyceridemia 042865495 E78.1 Has been on rosuva 40 and fenofibrat e (54x2) Started pioglitazo ne in 11/2018. TG slightly down.11/13: 117/177/51 /311/24: 112/214/47 /229/23: 118/189/52 /286/23: 147/245/46 /525/23: 146/250/45 /60 TG= 289 (06/13); was 231 (11/11); was 271 (08/12); was 223 (06/12); was 209 (04/12); was 153 (10/13); was 227 (02/09); was 230 (05/11); was 314 (11/08);*Hi ghest [id number] 2007. Was 877 in 07/05.* - TG have been between 250-350 on max rosuvastat in and low dose fenofibrat e. Some improvemen t on kelvin 30 mg. but mostly stable in low 200s. Had U/S in 10/13 confirming NAFLD. MRI at [facility] showed hepatic steatosis without focal pancreatic lesions (04/2019).M RI might be better if want to see if any changes. 08/12: Elastograp hy: IGR to median ratio is <15% so liver stiffness is acceptable .GI- José Miguel in [place]. 10/15: Clinically stable. If increases further, could increase fenofibrat e or consider vascepa. 09/15: change fenofibrat e from 108 to 120 (single pill) Uncontroll ed type 2 diabetes mellitus [id number] E11.65 a1c= 8.3 (11/13); was 8.1 (09/15); was 8.9 (05/15) was 8.7 (per pt by PCP POC); 8.2 (02/12); was 7.7 (01/12) was 7.1 (10/15); was 6.8 (06/13 and 03/13);Piog litazone only (to try and help with high TG and fatty liver Options:BREWER - increased risk for [id number] - increased risk for GUincretin - risk [...] and no lows Non-alcoho lic fatty liver [id number] K76.0 AST= 22 (09/15) was 35 (10/22); was 50 (11/11); was 39 (08/12); was [...] liver. Previous conversati on with Dr. Valdez ([facility]) in 2020. reviewed again 2022.She noted [...] with scoring severityNA FLD score= 1.1 (https://w ww.ACE culator.co m/health/n afld-fibro sis-score) FIB4 calculatio n: [...] of low dose incretin. History of pancreatitis [id number] 9107 Z87.19 Doesn't seem to be primarily related to TG since he has had bouts when TG were only in 300s.Much less pain since GB out (per pt) in 02/10.Now on Stephanie Valdez ([facility]) reports his pancreatit is was likely more biliary in etiology. Still, have to weigh benefits of incretin (GLP1-RA) against rare risk of pancreatit is [id number] Immanuel Krishna MD Endocrino logy, [address] [address] 04/05/2024 11:53:58 04/06/2024 08:45:17 Pure hyperglyceridemia [id number] E78.1 On rosuva 40 and fenofibrat e (54x2) Started pioglitazo ne in 11/2018. TG much better (also with a1c better).: 109/123/52 /321/: 112/214/47 /229/: 118/189/52 /286/23: 147/245/46 /525/23: 146/250/45 [...] U/S in 10/13 confirming MASLD. MRI at [facility] showed hepatic steatosis without focal pancreatic lesions [...] daily. Uncontroll ed type 2 diabetes mellitus [id number] E11.65 a1c= 7.8 (02/13); was 8.3 (11/13) [...] NAFLD. Previous conversati on with Dr. Valdez ([facility]) in 2020.She noted that his pancreatit [...] or sulfonylur ea). Non-alcoho lic fatty liver [id number] K76.0 AST= 22 (09/15) was 35 (06/13); [...] liver. Previous conversati on with Dr. Valdez ([facility]) in 2020. reviewed again 2022.We discussed [...] with scoring severityNA FLD score= 1.1 (https://w roxi.[facility].co m/health/n afld-fibro sis-score) FIB4 calculatio n: 1.85 (https://w roxi.[facility]edu /page/clin ical-calcu lators/fib -4)FIB-4 score <1.45 had a negative predictive value of 90% for advanced fibrosis (includes early bridging fibrosis to cirrhosis) .FIB-4 >3.25 has a 97% specificit y and a positive predictive value of 65% for advanced fibrosis. Appears that patient is less likely to have advanced fibrosis.T olerating GLP1-RA well. Increase to max dose Trjoann (04/15)Lázaro christinee for updated elastograp hy. History of pancreatitis [id number] 9107 Z87.19 Doesn't seem to be primarily related to TG since he has had bouts when TG were only in 300s.Much less pain since GB out (per pt) in 02/10.Now on Creon Previous conversati on with Dr. Valdez ([facility]) in 2020.She noted that his pancreatit [...] These factors increase complexity . José Miguel ([place] [facility] ) reports his pancreatit is was likely more biliary in etiology. Still, continue to monitor to assess benefits vs. risks of incretin (GLP1-RA) against rare risk of pancreatit is [id number] Immanuel Krishna MD Endocrino logy, [address] [phone] 08/03/2024 09:56:59 08/08/2024 07:28:51 Uncontrolled type 2 diabetes mellitus [id number] E11.65 Updated A1c - 7.6 % 04/2024 [...] 97-------- -------PM - 122------- ------HS --- 109------- ------07/23 0--------- -109------ ----152--- ------- 148------- ------/0 9--------- - 79-------- ---126---- -------109 ---8--- 10-------- --134----- ----- 151------- ------7 ---99----- -----127-- --------10 4--------- -----12/6- --93------ ----147--- -------162 ----12/5-- 115------- --101----- -----166-- --12/4---- --------10 4--------- 106------- ---142---- 12/3------ ------103- --------16 2--------- -116------ --------12 /2-------- ----104--- ------107- ---07/23--- ---------1 -------- -116------ ----116Dr [place] to review blood sugars/ginger n.?was he ever [...] ID Guarantor Name 09/15/2023 1 MEDICARE B-[place]: [facility] Elvin Sutherland [id number] Elvin Sutherland 09/15/2023 2 [place] [facility] Elvin Sutherland [id number] Elvin Sutherland 10/28/2023 1 MEDICARE B-[place]: [facility] Evlin Sutherland [id number] Elvin Sutherland 10/28/2023 2 [place] Elvin Sutherland [id number] Elvin Sutherland 12/07/2023 1 MEDICARE B-[place]: [facility] Elvin Sutherland [id number] Elvin Sutherland 12/07/2023 2 [place] Elvin Sutherland [id number] Elvin Sutherland 04/05/2024 1 MEDICARE B-[place]: [facility] Elvin Sutherland [id number] Elvin Sutherland 04/05/2024 2 [place] Elvin Sutherland [id number] Elvin Sutherland 08/03/2024 1 MEDICARE B-[place]: [facility] Elvin Sutherland [id number] Elvin Sutherland 08/03/2024 2 [place] Elvin Sutherland [id number] Elvin Sutherland Notes Date Note Type Note [...] bottles. Has dry mouth (tizanidine).);blurred vision(with reading. (ArmedZillatz) - due 11/2022); no weight gain; no [...] 1900 in 2007 and 877 in 07/05.09/15: 112/214/47//23: 147/245/46/52 Checking blood sugars mostly in AMB= 120-220 (09/15); Used to check two times daily..........FBS.......................... .......L............................D....... ...........BT9/26..1749/25...137............ ............................................ ........................2009/24...176....... ............................................ ...........................1919/23...162.... ............................................ ..............................1759/22...122. ............................................ ................................1139/21...24 1........................................... ...................................2399/20.. .158........................................ .....................................1519/19 ............................................ ............................................ 139/17...195............................... ............................................ .: Likely add [...] to stop. PCP: Crystal: José Miguel in [facility] [place] for GI- told pancreas was OK. Thought [...] a time. FAMILY Hx (updated):Mom alive in [place] (81 in 05/15). On dialysis since 2013. T2DM.6 Sisters healthy. No kid: No changes. PANCREATITIS AND FATTY LIVER:Pancreatitis 12/08/2020- had gallbladder removed 01/2021 - [facility]. Feeling mvivau11/21: Saw surgeon in [place] to take GB out- Surgery was 02/10.No [...] with standing in AM. Immanuel Krishna MD [address] [place] [address], [facility] [place], [phone], [facility] 4 14:56:51 10/27 text/ html Previous Hx :Had previous Nurse visit 06/2023 - dietary intake done at that visitMD LV - 08/2023 :Options:BREWER- increased risk for [id number]- increased risk for GUincretin- risk for pancreatitis [...] lowsNV with MD - 04/05/24 12:20 PM [facility] [place] with Nursing - 6 weeksRX's sent to pharmacy - If none - refills needed on any meds ? Accu chek test strips for 3 times dailyFenofibrate for 54 mg 2 tabs dialy - (pt cannot tolerate 120mg tab daily d/t nausea)Lab orders - In place until 08/2024DME forms completed?N/ANurse : Valerie Thomson,LAURA Krishna MD [address] [place] [address], [place], [phone], [facility] 4 16:58:25 12/06 text/ html Previous Hx :Nurse visit 06/2023 - dieta ry intake done at that visitNurse visit 10/2023 -MD MCCOY - 08/2023 :Options:BREWER- increased risk for nulnNAXN1s- increased risk for GUincretin- risk for pancreatitis [...] any meds ? Trulicity 3 mg to [facility] Lab orders - In place until 08/2024DME forms completed?N/ANurse : LAURA Arauz MD [address] [place] [address], [place], [phone] , [facility] 4 19:01:09 04/05 text/ html DiabetesReported bypatient.Labs:last [...] somewhat intentional. Dry mouth (tizanidine).);blurred vision(with reading. (Shatz) - appt in 07/16.); WEIGHT (home): 167 [...] 2007 and 877 in 07/05.09/15: 112/214/47//: 147/245/46/52 METER DOWNLOAD/REVIEWAM= 120-220 (04/15);afternoon (post-meal)= 110-220 [...] to stop. PCP: Crystal: José Miguel in [facility] for GI- told pancreas was OK. Thought fatty liver was contributing. Follow-Up: non-alcoholic fatty liverFollow-Up: pure hyperglyceridemiaFollow-Up: pure hypercholesterolemiaHypertriglyceridemiaDiab etes Type IIissues; [place] to [place] cort[place] and needs to be able to tell his Aic at scheduling time . I will [id number] order for lab today LV on 09/15las nurse visit on 12/14LAst labs on 02/13 A1C- 7.8Lab orders in place until 09/16Checking blood sugars 3 times fasting AM , before dinner, At [facility] uses meter and will add to chart [...] back issues. FAMILY Hx (updated):Mom alive in [place] (81 in 05/15). On dialysis since 2013. T2DM.6 Sisters healthy.No kid: No changes.04/15: Mom doing OK (82); Dad 02/13- colon CA (age 89) PANCREATITIS AND FATTY LIVER:Pancreatitis 12/08/2020- had gallbladder removed 01/2021 - [facility]. Feeling fysutn51/21: Saw surgeon in [place] to take GB out- Surgery was 02/10.No [...] with standing in AM. Immanuel Krishna MD [address] [place] [address], [facility] [place], [phone], [facility] 4 13:12:46 08/03 text/ html HX : Nursing 10/2023:Last HgbA1c - 7.6 (05/16) was [...] GI d/t GI upset and hx pancreatitis/fatty [id number] - sand which or rice and beans [...] on [facility] Valdez - - Aug 2024Updated A1c - 7.6 [...] 97 PM - 122 HS --- 109 12/10--- -------109 152 --------- 148 12/09--- ------- 79 126 ---109 12/8- ------ ---- 110 134 --- 151 127 99 127------ 104 -------12/6 93 --147 162 12/5 115------- 101 166------ 12/4 104 106 -142 12/3-- 103 162--------- 116 ----12 104 10 7 121----- -------103 116 --------[address] Krishna 10/10/24 = [facility] 3:30 PMNext Visit RN -Labs - Due for a1c this monthNurse: Valerie Thomson,LAURA Krishna MD [address] [place] [address], [place], [phone] , [facility] 4 13:18:52
[2024-10-20 13:50] LABS: Hematocrit 38.6 % (42.0-52.0); Hemoglobin 12.5 g/dl (14.0-18.0); Mean Corpuscular HGB Conc 32.4 g/dl (31.0-36.0); Mean Corpuscular Volume 86.4 fL (80.0-98.0); Mean Platelet Volume 13.1 fL (9.4-12.4); Platelet Count 215 X10*3/uL (160-400); Red Blood Count 4.47 X10*6/uL (4.60-5.80); Red Cell Distribution Width 14.9 % (11.0-16.0); White Blood Count 4.5 X10*3/uL (4.8-10.8)
== END 2024-10-20 10:24 | disposition home or self-care (01) ==
LOC: HO.HMGCLDS 10:23
PROVIDERS: PCP Family Medicine; Visit Provider Internal Medicine
DX: D64.9 Anemia, unspecified (principal)
CPT/HCPCS: 36415; 85027

== ENCOUNTER → 2024-10-25 13:09 | Outpatient (BNVA) | payer MEDICARE, MEDICAID, SELFPAY | PROVIDERS: PCP Family Medicine; Visit Provider Internal Medicine Gastroenterology | DX: Z13.79 Encounter for other screening for genetic and chromosomal anomalies (principal) | CPT/HCPCS: 99211 ==

== ENCOUNTER 2025-01-08 11:00 | Outpatient (AMB) | payer MEDICARE, MEDICAID, SELFPAY ==
--- NOTE | 2025-01-08 11:17 | MHC.OFFVIS ---
Vital Signs 01/08/25 11:22 Height 5 ft 4 in Weight 154 lb 5.177 oz BMI 26.5 BP 110/73 Blood Pressure Location Lt brachial Position Sitting Pulse 89 Intake Visit Reasons: elevated liver *genetic test results* Intake Note: Elvin espinal in the office as a results to his EUS. CC: HE states that he is feeling okay - he gets some pains in the epigastric region depending on what he eats. States he gets diarrhea and sometimes constipation. Registered Pharmacist Required: No Allergies gabapentin [GABAPENTIN] Allergy (Mild, Verified 01/08/25 11:23) RASH famotidine [From Pepcid] Allergy (Unknown, Verified 01/08/25 11:23) RASH pregabalin [From LYRICA] Allergy (Unknown, Verified 01/08/25 11:23) VOMITING pantoprazole [From Protonix] Allergy (Verified 01/08/25 11:23) Rash ibuprofen [From Advil] Adverse Reaction (Unknown, Verified 01/08/25 11:23) STOMACH UPSET morphine Adverse Reaction (Verified 01/08/25 11:23) Headache HPI HPI elevated liver *genetic test results*: Details: 54-year-old male with a past medical of chronic pancreatitis, type 2 diabetes, chronic constipation, and migraines who I am seeing for f/u for chronic pancreatitis. RECAP: He had severe epigastric burning pain going into the back for 10 d which was similar to prev attacks of acute pancreatitis. He has had attacks going on for maybe 15 years with index attacks thought to have been due to hypertriglyceridemia >1000 but now this is not an issue. He also had cholecystectomy to see if helped but not really. 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 he does admit to nausea but no vomiting, no recent alcohol or drugs. He denies any runny nose, congestion, cough, lower extremity edema or urinary symptoms including frequency urgency or hematuria. He sees Dr Valdez and [facility] He has had EUS in the past as well. Ct imaging: acute on chronic pancreatitis. dense calcifications in head and dilated PD noted. INTERIM: He went to [facility] he had EUS which confirmed chronic pancreatitis, and soem gastritis noted he went back on creon he still has issues with pain and nausea when he eats pain can be 7-8/10 at times EXAM: GENERAL: The patient is well developed and nontoxic. VITAL SIGNS:see workflow HEENT: Nonicteric sclerae, PERRLA, EOMI. Oropharynx clear. Moist mucous membranes. Conjunctivae appear well perfused. No thyroid mass. CHEST: Chest wall is nontender. HEART: Regular rate and rhythm without murmurs. LUNGS: Clear to auscultation bilaterally. ABDOMEN: Soft, positive bowel sounds, nontender, no organomegaly.no flank tenderness SKIN: No rash, no excessive bruising, petechiae, or purpura. NEUROLOGIC: Cranial nerves II-XII intact without motor/sensory deficit. Psych: normal affect A/P: 1/ Chronic panc with ongoing abdominal pain, had EUS which confirmed pancreatitis with dense calcifications, which was known from prior imaging, I still think surgical option is better for him than repeated eRCP PLAN: /1 - refer [facility] [place] [facility] opinion, cont with creon for the meantime, low fat diet PFSH Medical History Chronic pancreatitis Diabetes Kidney stone Pancreatitis Migraine HTN (hypertension) Depression Surgical History S/P laparoscopic cholecystectomy (02/12/21) History of elbow surgery Hx of endoscopy Hx of colonoscopy H/O neck surgery Social History Household Members: Significant Other Housing: Apartment Do you presently have visiting nurse or other home services: No Alcohol intake: never Patient Tobacco Use Status: Never used Tobacco Second Hand Smoke Exposure: No Advance Directives Date on File: 12/19/20 service: No Current occupational status: disabled Physical Exam Vital Signs: Last Vital Signs Pulse 89 01/08/25 11:22 BP 110/73 01/08/25 11:22 BMI result Body Mass Index 26.5 Assessment & Plan Assessment & Plan (1) Chronic calcific pancreatitis: Code(s): K86.1 - Other chronic pancreatitis Category: Medical Plan: as above Coding Level of Care Code Est Pt Level 3 (61614) Diagnoses Chronic calcific pancreatitis K86.1
[2025-01-08 11:22] VITALS: BP 110/73; PULSE 89; BMI 26.5
--- OUTSIDE RECORDS SUMMARY | 2025-01-08 11:46 | XMS_ITS | Data Portability ---
Author Organization [facility], [facility] Address [address] [place] [address] Care Team Providers Care Senior Mechanical Estimator Name Role Phone IMMANUEL KRISHNA Commercial Announcer Unavailable TARAN SANCHEZ Primary Care Provider PARKER VALDEZ Gravure Printing Machinist Assessment Encounter Date Assessment Date Assessment LastModified by Organization Details LastModified Time 10/28/2023 10/28/2023 T2DM: since 2020 (a1c x [...] but not advanced). 05/15: followed by GI Radha) f/u 6 months. 09/15: TG stable in [...] at goal. Tolerating well. Increase to 4.5. [email or web address] Not available 04/05/2024 13:09:31 11/15/2024 11/15/2024 T2DM: since 2020 (a1c x 2 over 6.5%) after having had pre-diabetes- was on pioglitazone since 11/2018 for high TG and fatty liver. 09/15: On kelvin and trulicity 0.75. tolerating incretin. increase 04/15: Doing well on trulicity 3.0 with MET and KELVIN 11/14: A1c in low 7s on max trulicity and KELVIN. Have discussed risks of pancreatitis with incretin. HYPERTRIGLYCERID EMIA: Values on rosuvastatin with fenofibrate [...] incretin (if OK with GI)? 05/15: Called GI José Miguel ([place]) re: incretin. LM with service. 09/15: Lipids stable with TG in lows 200s. 04/15: TG stable. 11/14: Labs OK on rosuva/fenofibra te 108 and KELVIN NAFLD on u/s in 10/13. Had abnormal LFTs in past - c/w fatty liver. Better in 2019 (and fall 2018) 11/11: Elastography ([facility]) done- IGR to median ratio is <15% so liver stiffness is acceptable. FIB-4 score is 1.85 (intermediate; not normal but not advanced). 05/15: followed by GI (José Miguel) 04/15: Still sees José Miguel 11/14: stable. HYPERCALCEMIA: Enhanced Provider time spent performing enhanced activities which may include, but are not limited to: reviewing tests, obtaining and/or reviewing patient history; ordering medications, test or procedures; EMR documentation; communication with patient, family, caregiver(s), VNA; pre-visit prep time communication with specialists, ER staff. Time spent: 43 (minutes) 11/14 f/u 6 months. 09/15: TG stable in 200s. a1c 8.1 (09/15); was 8.9 (05/15) - Increase trulicity to 1.5 Needs to improve BG to get shot for low back Elvin Mejia MD 04/15: A1c better but not at goal. Tolerating well. Increase to 4.5. 11/14: a1c better with trulicity (max) and KELVIN. Lipids OK. Issues are hx of pancreatitis but felt not to be d/t meds. Seeing surgeon in [place] for options. sylvia Not available 11/19/2024 13:50:03 Plan of Treatment Reminders Order Date Submit Date Provider Last Modified By Organization Details Last Modified Time Details Appointments [facility] violet 2024 01:00P M [facility] Endocrinolog y Nurse Not available Not available Not available Foll ow , 20 2024 03:10P M Immanuel Krishna MD Not available Not available Not available Lab иван hdz, seru m 2024 025 [facility], [address] [place] [address], [id number], 12/28/2024 10:23:41 PTH (par athy roid horm one) , inta ct, seru m or plas ma 2024 025 [facility], [address] [place] [address], [id number], 12/28/2024 14:01:53 baldev min D, 25-h ydro xy, sacha l, seru m 2024 025 [facility], [address] [place] [address], [id number], 12/29/2024 17:09:35 HbA1 c (hem oglo bin A1c) , bloo d 2024 025 [facility], [address] [place] [address], [id number], 12/28/2024 12:24:07 CMP, seru m or plas ma 2024 025 [facility], [address] [place] [address], [id number], 12/29/2024 11:08:03 micr oalb umin /cre atin ine, rati o trish hassanin e 2024 025 [facility], [address] [place] [address], [id number], 12/29/2024 09:56:25 jamee hdz, seru m 2024 025 [facility], [address] [place] [address], [id number], 12/29/2024 11:08:05 HbA1 c (hem oglo bin A1c) , bloo d 2024 025 [facility], [address] [place] [address], [address], 12/28/2024 12:24:07 CMPcassidy or jarod pham 2024 025 [facility], [address] [place] [address], [address], 12/29/2024 11:08:03 lipi cassidy wells 2024 025 [facility], [address] [place] [address], [address], 12/29/2024 11:08:05 Referral None ange rded . Procedures live r elas togr aphy , [facility] anic ally guzman rachel amador r wave (PRO C) - Hx of MASL D on GLP1 -RA. Plea se eval uate and comp are to prev ious stud y. 2023 024 [email or web address] [facility], [address] [place], [address], 04/05/2024 13:19:02 Surgeries None ange rded . Imaging None ange rded . Medication Orders Trul icit y 4.5 mg/0 .5 mL subc utan eous pen inje ctor 2023 024 DENTON [facility] [address] [place], [address], 04/05/2024 13:12:47 Trul icit y 3 mg/0 .5 mL subc utan eous pen inje ctor 2023 024 ivett [facility] [address] [place], [address], 08/02/2024 12:03:07 feno fibr ate 54 mg tabl et 2023 024 sstuartchipk in [id number], [address] [facility] [place], [address], 10/28/2023 15:11:58 Accu -Delores k Alvaro a Plus test stri ps 2023 024 sstuartchipk in [id number], [address], [place]IV[place] Reed, [id number], 10/28/2023 15:11:58 Patient TargetsNo targets recorded. Patient Instructions Encounter Date Encounter Id Patient Instructions Last Modified By Organization Details Last Modified Time 12/07/2023 [id number] 1.) - Increase Trulicity to 3 mg weekly after completing rest of your supply of 1.5 mg weekly. 2.) - Come back for nurse/doctor visit after taking 3 mg x at least 4 weeks - January 2024. 3)- Lab one week prior to RN/MD appt [email or web address] Not available 12/07/2023 19:00:24 ENDO RN visit in January 2024. [email or web address] Not available 12/07/2023 19:00:32 04/05/2024 [id number] - Stay on same medications for now. [...] discussed- 09/29/22- src Not available 04/03/2024 10:36:36 11/15/2024 [id number] - Stay on same medications for now. - Stay on Trulicity to 4.5 mg weekly. Side effects [...] on rosuvastatin and fenofibrate [email or web address] Not available 11/15/2024 15:58:17 6+ months/ 40 minutes (in person) CCM discussed- 09/29/22- src Not available 11/14/2024 14:10:42 Reason for Referral None Reported. Results Created Date Observation Date Name Description Value Unit Range Abnormal Flag Note LastModifiedBy Organization Detail LastModifiedTime 10/28/19 24 10/28/2023 HGB A1C hemoglobin A1C [...] furth er confi rmati on Not Available [address], [address], 10/28/2023 15:50:09 10/28/19 24 10/28/2023 HGB A1C estimated average glucose 191.5 mg/dL Not Available [address], [address], 10/28/2023 15:50:09 10/28/19 24 10/28/2023 LIPID PANEL cholesterol 117 mg/dL <200 mg/dl Yogesh able 200-2 39 mg/dl Borde rline High >240 mg/dl High Not Available [address], [address], 10/28/2023 16:03:20 10/28/19 24 10/28/2023 LIPID PANEL triglyceride s 177 mg/dL <150 mg/dL Mary l 150-1 99 mg/dL Borde rline High 200-4 99 mg/dL High >500 mg/dL Very High Not Available [address], [address], 10/28/2023 16:03:20 03/07/20 24 10/28/2023 LIPID PANEL direct HDL 51 mg/dL <40 mg/dl - Major Risk for CHD >60 mg/dl - Negat ricardo Risk for CHD Not Available [address], [address], 10/28/2023 16:03:20 10/28/19 24 10/28/2023 LDL - [...] r is not neces devora. Not Available [address], [address], 10/28/2023 16:03:21 10/28/19 24 10/28/2023 MICRO ALBUM IN/CR EATIN INE RATIO PANEL , URINE microalbumin 15.6 mg/L 1.3-20 .0 Not Available [address], [address], 10/28/2023 16:33:30 10/28/19 24 10/28/2023 MICRO ALBUM IN/CR EATIN INE RATIO PANEL , URINE creatinine urine 214.0 mg/dL 30.0-1 25.0 high Not Available [address], [address], 10/28/2023 16:33:30 10/28/19 24 10/28/2023 MICRO ALBUM IN/CR EATIN INE RATIO PANEL , URINE microalb/cre at ratio 7.3 mg/g_ creat 0.0-29 .0 Not Available [address], [address], 10/28/2023 16:33:30 10/28/19 24 11/02/2023 COMP. METAB OLIC PANEL glucose 167 mg/dL 70-100 high Not Available [address], [address], 11/02/2023 11:16:49 10/28/19 24 11/02/2023 COMP. METAB OLIC PANEL BUN 10 mg/dL 7-18 Not Available [address], [address], 11/02/2023 11:16:49 10/28/19 24 11/02/2023 COMP. METAB OLIC PANEL creatinine 1.2 mg/dL 0.8-1. 3 Not Available [address], [address], 11/02/2023 11:16:49 10/28/19 24 11/02/2023 COMP. METAB OLIC PANEL B/C 8.3 ratio Not Available [address], [address], 11/02/2023 11:16:49 10/28/19 24 11/02/2023 COMP. METAB [...] be used in pregn raine. Not Available [address], [address], 11/02/2023 11:16:49 10/28/19 24 11/02/2023 COMP. METAB OLIC PANEL sodium 143 mmol/ L 136-14 5 Not Available [address], [address], 11/02/2023 11:16:49 10/28/19 24 11/02/2023 COMP. METAB OLIC PANEL potassium 4.0 mmol/ L 3.5-5. 1 Not Available [address], [address], 11/02/2023 11:16:49 10/28/19 24 11/02/2023 COMP. METAB OLIC PANEL chloride 103 mmol/ L 96-107 Not Available [address], [address], 11/02/2023 11:16:49 10/28/19 24 11/02/2023 COMP. METAB OLIC PANEL anion gap 13.5 5.0-15 .0 Not Available [address], [address], 11/02/2023 11:16:49 10/28/19 24 11/02/2023 COMP. METAB OLIC PANEL CO2 27 mmol/ L 21-32 Not Available [address], [address], 11/02/2023 11:16:49 10/28/19 24 11/02/2023 COMP. METAB OLIC PANEL calcium 10.1 mg/dL 8.5-10 .3 Not Available [address], [address], 11/02/2023 11:16:49 10/28/19 24 11/02/2023 COMP. METAB OLIC PANEL total protein 8.2 g/dL 6.4-8. 2 Not Available [address], [address], 11/02/2023 11:16:49 10/28/19 24 11/02/2023 COMP. METAB OLIC PANEL albumin 4.4 g/dL 3.4-5. 0 Not Available [address], [address], 11/02/2023 11:16:49 10/28/19 24 11/02/2023 COMP. METAB OLIC PANEL globulin 3.8 g/dL Not Available [address], [address], 11/02/2023 11:16:49 10/28/19 24 11/02/2023 COMP. METAB OLIC PANEL A/G 1.2 ratio 0.8-2. 0 Not Available [address], [address], 11/02/2023 11:16:49 10/28/19 24 11/02/2023 COMP. METAB OLIC PANEL total bilirubin 0.30 mg/dL 0.00-1 .00 Not Available [address], [address], 11/02/2023 11:16:49 10/28/19 24 11/02/2023 COMP. METAB OLIC PANEL AST 30 U/L 0-37 Not Available [address], [address], 11/02/2023 11:16:49 10/28/19 24 11/02/2023 COMP. METAB OLIC PANEL ALT 32 U/L 6-63 Not Available [address], [address], 11/02/2023 11:16:49 10/28/19 24 11/02/2023 COMP. METAB OLIC PANEL alk. phos. 96 U/L 50-136 Not Available [address], [address], 11/02/2023 11:16:49 02/11/20 24 02/11/2024 HGB A1C [...] furth er confi rmati on Not Available [address], [address], 02/11/2024 14:19:10 02/11/20 24 02/11/2024 HGB A1C estimated average glucose 177.2 mg/dL Not Available [address], [address], 02/11/2024 14:19:10 02/11/20 24 02/11/2024 COMP. METAB OLIC PANEL glucose 131 mg/dL 70-100 high Not Available [address], [address], 02/11/2024 15:40:07 02/11/20 24 02/11/2024 COMP. METAB OLIC PANEL BUN 13 mg/dL 7-18 Not Available [address], [address], 02/11/2024 15:40:07 02/11/20 24 02/11/2024 COMP. METAB OLIC PANEL creatinine 1.3 mg/dL 0.8-1. 3 Not Available [address], [address], 02/11/2024 15:40:07 02/11/20 24 02/11/2024 COMP. METAB OLIC PANEL B/C 10.0 ratio Not Available [address], [address], 02/11/2024 15:40:07 02/11/20 24 02/11/2024 COMP. METAB [...] be used in pregn raine. Not Available [address], [address], 02/11/2024 15:40:07 02/11/20 24 02/11/2024 COMP. METAB OLIC PANEL sodium 143 mmol/ L 136-14 5 Not Available [address], [address], 02/11/2024 15:40:07 02/11/20 24 02/11/2024 COMP. METAB OLIC PANEL potassium 4.1 mmol/ L 3.5-5. 1 Not Available [address], [address], 02/11/2024 15:40:07 02/11/20 24 02/11/2024 COMP. METAB OLIC PANEL chloride 104 mmol/ L 96-107 Not Available [address], [address], 02/11/2024 15:40:07 02/11/20 24 02/11/2024 COMP. METAB OLIC PANEL anion gap 10.2 5.0-15 .0 Not Available [address], [address], 02/11/2024 15:40:07 02/11/20 24 02/11/2024 COMP. METAB OLIC PANEL CO2 29 mmol/ L 21-32 Not Available [address], [address], 02/11/2024 15:40:07 02/11/20 24 02/11/2024 COMP. METAB OLIC PANEL calcium 10.0 mg/dL 8.5-10 .3 Not Available [address], [address], 02/11/2024 15:40:07 02/11/20 24 02/11/2024 COMP. METAB OLIC PANEL total protein 8.3 g/dL 6.4-8. 2 high Not Available [address], [address], 02/11/2024 15:40:07 02/11/20 24 02/11/2024 COMP. METAB OLIC PANEL albumin 4.4 g/dL 3.4-5. 0 Not Available [address], [address], 02/11/2024 15:40:07 02/11/20 24 02/11/2024 COMP. METAB OLIC PANEL globulin 3.9 g/dL Not Available [address], [address], 02/11/2024 15:40:07 02/11/20 24 02/11/2024 COMP. METAB OLIC PANEL A/G 1.1 ratio 0.8-2. 0 Not Available [address], [address], 02/11/2024 15:40:07 02/11/20 24 02/11/2024 COMP. METAB OLIC PANEL total bilirubin 0.30 mg/dL 0.00-1 .00 Not Available [address], [address], 02/11/2024 15:40:07 02/11/20 24 02/11/2024 COMP. METAB OLIC PANEL AST 27 U/L 0-37 Not Available [address], [address], 02/11/2024 15:40:07 02/11/20 24 02/11/2024 COMP. METAB OLIC PANEL ALT 32 U/L 6-63 Not Available [address], [address], 02/11/2024 15:40:07 02/11/20 24 02/11/2024 COMP. METAB OLIC PANEL alk. phos. 68 U/L 50-136 Not Available [address], [address], 02/11/2024 15:40:07 02/11/20 24 02/11/2024 LIPID PANEL cholesterol 109 mg/dL <200 mg/dl Yogesh able 200-2 39 mg/dl Borde rline High >240 mg/dl High Not Available [address], [address], 02/11/2024 15:40:08 02/11/20 24 02/11/2024 LIPID PANEL triglyceride s 123 mg/dL <150 mg/dL Mary l 150-1 99 mg/dL Borde rline High 200-4 99 mg/dL High >500 mg/dL Very High Not Available [address], [address], 02/11/2024 15:40:08 02/11/20 24 02/11/2024 LIPID PANEL direct HDL 52 mg/dL <40 mg/dl - Major Risk for CHD >60 mg/dl - Negat ricardo Risk for CHD Not Available [address], [address], 02/11/2024 15:40:08 02/11/20 24 02/11/2024 LDL - [...] r is not franny lozoya. Not Available [address], [address], 02/11/2024 15:40:08 02/11/20 24 02/14/2024 MICRO ALBUM IN/CR EATIN INE RATIO PANEL , URINE microalbumin 17.3 mg/L 1.3-20 .0 Not Available [address], [address], 02/14/2024 10:11:33 02/11/20 24 02/14/2024 MICRO ALBUM IN/CR EATIN INE RATIO PANEL , URINE creatinine urine 259.8 mg/dL 30.0-1 25.0 high Not Available [address], [address], 02/14/2024 10:11:33 02/11/20 24 02/14/2024 MICRO ALBUM IN/CR EATIN INE RATIO PANEL , URINE microalb/cre at ratio 6.7 mg/g_ creat 0.0-29 .0 Not Available [address], [address], 02/14/2024 10:11:33 05/19/20 24 05/19/2024 HGB A1C [...] furth er confi rmati on Not Available [address], [address], 05/19/2024 15:46:46 05/19/20 24 05/19/2024 HGB A1C estimated average glucose 171.4 mg/dL Not Available [address], [address], 05/19/2024 15:46:46 08/24/19 25 08/24/2024 HGB A1C hemoglobin A1C 7.2 % 4.8-6. [...] furth er confi rmati on Not Available [address], [address], 08/24/2024 14:12:11 08/24/1908/24/2024 HGB A1C estimated average glucose 159.9 mg/dL Not Available [address], [address], 08/24/2024 14:12:11 08/24/1908/24/2024 LIPID PANEL cholesterol 139 mg/dL <200 mg/dl Yogesh able 200-2 39 mg/dl Borde rline High >240 mg/dl High Not Available [address], [address], 08/24/2024 15:53:20 08/24/1908/24/2024 LIPID PANEL triglyceride s 145 mg/dL <150 mg/dL Mary l 150-1 99 mg/dL Borde rline High 200-4 99 mg/dL High >500 mg/dL Very High Not Available [address], [address], 08/24/2024 15:53:20 08/24/19 25 08/24/2024 LIPID PANEL direct HDL 70 mg/dL <40 mg/dl - Major Risk for CHD >60 mg/dl - Negat ricardo Risk for CHD Not Available [address], [address], 08/24/2024 15:53:20 08/24/19 25 08/24/2024 LDL - [...] r is not franny lozoya. Not Available [address], [address], 08/24/2024 15:53:21 08/24/19 25 08/24/2024 COMP. METAB OLIC PANEL glucose 108 mg/dL 70-100 high Not Available [address], [address], 08/24/2024 16:01:55 08/24/19 25 08/24/2024 COMP. METAB OLIC PANEL BUN 20 mg/dL 7-18 high Not Available [address], [address], 08/24/2024 16:01:55 08/24/19 25 08/24/2024 COMP. METAB OLIC PANEL creatinine 1.5 mg/dL 0.8-1. 3 high Not Available [address], [address], 08/24/2024 16:01:55 08/24/19 25 08/24/2024 COMP. METAB OLIC PANEL B/C 13.3 ratio Not Available [address], [address], 08/24/2024 16:01:55 08/24/19 25 08/24/2024 COMP. METAB [...] be used in pregn raine. Not Available [address], [address], 08/24/2024 16:01:55 08/24/19 25 08/24/2024 COMP. METAB OLIC PANEL sodium 142 mmol/ L 136-14 5 Not Available [address], [address], 08/24/2024 16:01:55 08/24/19 25 08/24/2024 COMP. METAB OLIC PANEL potassium 4.6 mmol/ L 3.5-5. 1 Not Available [address], [address], 08/24/2024 16:01:55 08/24/19 25 08/24/2024 COMP. METAB OLIC PANEL chloride 101 mmol/ L 96-107 Not Available [address], [address], 08/24/2024 16:01:55 08/24/19 25 08/24/2024 COMP. METAB OLIC PANEL anion gap 15.9 5.0-15 .0 high Not Available [address], [address], 08/24/2024 16:01:55 08/24/19 25 08/24/2024 COMP. METAB OLIC PANEL CO2 25 mmol/ L 21-32 Not Available [address], [address], 08/24/2024 16:01:55 08/24/19 25 08/24/2024 COMP. METAB OLIC PANEL calcium 10.9 mg/dL 8.5-10 .3 high ANA LILIA=V erifi ed by Shwetha cedillo Not Available [address], [address], 08/24/2024 16:01:55 08/24/19 25 08/24/2024 COMP. METAB OLIC PANEL total protein 8.8 g/dL 6.4-8. 2 high Not Available [address], [address], 08/24/2024 16:01:55 08/24/19 25 08/24/2024 COMP. METAB OLIC PANEL albumin 4.6 g/dL 3.4-5. 0 Not Available [address], [address], 08/24/2024 16:01:55 08/24/19 25 08/24/2024 COMP. METAB OLIC PANEL globulin 4.2 g/dL Not Available [address], [address], 08/24/2024 16:01:55 08/24/19 25 08/24/2024 COMP. METAB OLIC PANEL A/G 1.1 ratio 0.8-2. 0 Not Available [address], [address], 08/24/2024 16:01:55 08/24/19 25 08/24/2024 COMP. METAB OLIC PANEL total bilirubin 0.60 mg/dL 0.00-1 .00 Not Available [address], [address], 08/24/2024 16:01:55 08/24/19 25 08/24/2024 COMP. METAB OLIC PANEL AST 29 U/L 0-37 Not Available [address], [address], 08/24/2024 16:01:55 08/24/19 25 08/24/2024 COMP. METAB OLIC PANEL ALT 27 U/L 6-63 Not Available [address], [address], 08/24/2024 16:01:55 08/24/19 25 08/24/2024 COMP. METAB OLIC PANEL alk. phos. 54 U/L 50-136 Not Available [address], [address], 08/24/2024 16:01:55 08/24/19 25 08/30/2024 ALBUM IN, RANDO M URINE W/CRE ATINI NE creatinine, random urine 243 mg/dL 20-320 normal Not Available [facility] [address], [address], 08/30/2024 18:13:36 08/24/19 25 08/30/2024 ALBUM IN, RANDO M URINE W/CRE ATINI NE albumin, urine 1.8 mg/dL normal Refer ence Range Not estab lishe d Not Available [facility] [address], [address], 08/30/2024 18:13:36 08/24/19 25 08/30/2024 ALBUM IN, [...] a diagn ostic categ ory. Not Available [facility] [place] [facility] [address], [place], [address], 08/30/2024 18:13:36 04/11/20 24 04/11/2024 US liver [...] no hydro IMMANUEL R ART N IMMANUEL Kb CORDOVA N [facility] [address] [place] [address], [address], 04/28/2024 18:24:04 04/11/20 24 04/11/2024 US, liver No observ ation record ed. [email or web address] [address], [address], 04/28/2024 16:26:08 Result Notes None recorded. Problems Name Problem SNOMED Code Status Onset Date Resolution Date Notes Provider Name and Address Organization Details Recorded Time Pure hypergly ceridemi a 774421440 Active 2007 Not Available [facility] 4 05:31:29 Gastroes ophageal reflux disease 276960469 Active Not Available [facility] 4 05:31:29 Abdomina l pain 92604788 Completed 07/12/2013 Not Available [facility] 3 02:01:24 Right upper quadrant pain 793131030 Completed 200807/12/2013 Not Available [facility] 3 02:03:18 Pure hypercho lesterol emia 627979058 Completed 200706/02/2021 Removal Reason: really is just TG Immanuel Krishna MD [address] [place] [address], [phone] , [facility] 16:25:08 Prediabe benton 266977240 Completed 202006/02/2021 Removal Reason: transiti on to DMT2 Immanuel Krishna MD [address] [place] [address], [phone] , [facility] 16:25:20 Non-alco holic fatty liver 012203491 Active 2020 Not Available [facility] 4 05:31:29 History of pancreat itis 61502119546 107 Active 2020 Not Available [facility] 4 05:31:29 Type 2 diabetes mellitus without complica tion 612851391 Active 2022 coded 11/19/21 Virtual Visit Not Available [facility] 4 05:31:29 Uncontro lled type 2 diabetes mellitus 448850614 Active 2022 Not Available [facility] 4 05:31:29 Notes:Some problems listed i n Documents: #[id number], #[id number], #[id number] could not be added to this patient's chart. Please review these documents and add these problems to the patient's chart manually as needed. Problem Notes None recorded. Procedures Surgical History Date Name Laterality Status Provider Name and Address Organization Details Recorded Time 06/10/20 23 Insulin Teaching completed Arlene Thomson RN [facility] 06/10/2023 15:23:46 02/13/20 21 cholecystectomy completed Arlene Thomson RN [facility] 06/02/2021 15:20:06 10/05/19 20 Tassoni - EGD completed Sharad Horn MD [address] [place] [address], [phone], [place] [facility] 10/05/2019 12:39:37 Imaging Results Imaging Date Name Status LastModified by Organization Details LastModified Time 04/11/2024 US liver with elastography completed [facility] [address] [place] [address], [address], 04/28/2024 18:24:04 04/11/2024 US, liver completed [email or web address], [address], 04/28/2024 16:26:08 Procedure Notes None recorded. Medical Equipment None Reported. Allergies Allergen ID Allergen Name Allergen Category Reaction Reaction Severity Criticality Documentation Date Start Date Code Code System Note Provider Name and Address Organization Details Recorded Time 812854 gabapenti n medicatio n headache Not available Not available 04/06/2012 12505 RxNorm Zaira López MA [facility] 2 14:52:44 796054 Lyrica medicatio n Not available Not available Not available 04/06/2012 68454 1 RxNorm tight ness in throa t, not swell ing Zaira López MA [facility] 2 14:52:44 860043 morphine medicatio n Not available Not available Not available 11/15/2024 7052 RxNorm heada delores Naila Burch LPN [facility] 5 15:03:09 8288 Pepcid medicatio n rash Not available Not available 11/29/2008 25162 8 RxNorm GI upset Not Available [facility] 1 06:05:20 8289 Advil medicatio n nausea vomiting Not available Not available Not available 11/29/2008 73924 0 RxNorm Not Available [facility] 1 06:05:20 Medications Name Sig Start [...] BY MOUTH 1 HOUR BEFORE MRI SCAN 11/15 completed Not Available Not Available Not Available [...] needed Not Available Not Available Not Available sucralfat e 1 gram tablet TAKE 1 TABLET BY MOUTH 4 TIMES A DAY BEFORE MEALS AND BEDTIME active Not Available Not Available No t Available prednison e 20 mg tablet TAKE 2 TABLETS BY MOUTH EVERY DAY FOR 5 DAYS 11/15 completed Not Available Not Available Not Available clobetaso l 0.05 % topical cream [...] mg capsule TAKE 3 CAPSULES BY MOUTH EVERY DAY AT BEDTIME active Not Available Not Available [...] TAKE 1 TABLET BY MOUTH EVERY DAY 01/24 /2024 completed not taking 05/18/23 Not Available Not [...] Available vitamin B complex tablet TAKE 1 TABLET BY MOUTH EVERY DAY active Not Available Not Available No t Available morphine ER 15 mg tablet,ex tended release 10/01 completed Not Available Not Available Not Available zolpidem 10 mg tablet TAKE 1 TABLET BY MOUTH EVERY DAY AT BEDTIME NEEDED FOR SLEEP active Not Available Not Available No t Available pioglitaz one 30 mg tablet TAKE 1 TABLET BY MOUTH EVERY DAY active taking twice daily Not Available Not Available Not Available Naprosyn 500 mg tablet active Take [...] ondansetr on 4 mg disintegr ating tablet DISSOLVE 1 TABLET IN MOUTH EVERY 8 HOURS NEEDED FOR NAUSEA [...] capsule TAKE 1 CAPSULE BY MOUTH DAILY. 11/15 completed Not Available Not Available Not Available oxycodone 5 mg tablet TAKE 1 [...] DAY (START WITH ONCE A DAY) active unsure Not Available Not Available No t Available [...] Details Last Updated DateTime 4 164.47 cm 29.4 kg/m2 89007.1 g 93 /min 120 mm[Hg] 78 mm[Hg] Alicja Urena LPN [facility] 4 12:21:27 Date Recorded Body height Body mass index (BMI) Body weight Provider Name and Address Organization Details Last Updated DateTime 08/03/2024 164.47 cm 27.2 kg/m2 99448.32 g Arlene Thomson RN [facility] 08/03/2024 10:22:22 Date Recorded Body height Body mass index (BMI) Body weight Heart rate Systolic blood pressure Diastolic blood pressure Provider Name and Address Organization Details Last Updated DateTime 5 164.47 cm 26.3 kg/m2 89342 g 91 /min 111 mm[Hg] 75 mm[Hg] 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 Denies Denies Information not available 12/11/2014 Education 12 Stopped 2-3 Months Before Graduation Information not available 04/10/2009 CCM Consent Discussion 09/29/2022 [email or web address] Information not available 09/29/2022 Marital Status Single Girlfirend Kaylynn mas Information not available 04/10/2009 What Was The Date Of Your Most Recent Tobacco Screening? 11/18/2018 [email or web address] Information not available 03/15/2019 How Many Children Do You Have? 0 [email or web address] Information not available 07/09/2011 Sex: Male Functional Status Question Answer Note LastModified by Organizat ion Details LastModified Time Do you use any illicit or recreational drugs? No Information not available 11/19/2021 Do you or have you ever used any other forms of tobacco or nicotine? No Information not available 11/19/2021 What is your level of alcohol consumption? 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 Family History Relationship Description Onset Age of this Age Resolved Age Notes LastModified by Organization Details LastModified Time Mother Hyperlipidem yury mas Not available 10/2015 14:32:27 Notes:mother 73 live diabete s HTN, hypercholesterolemia, dialysis secondary-2014 father 84 live no contact, CABG x 4 in 80's 6 sisters live, healthy generally, one with asthma. MGM of [place] at age 60's 11/08- Family OK. 06/10- Sisters healthy. No kids. 06/12: family OK. Mom alive in [place] (76). 11/11: Family OK. 10/15: No changes. Medical History Condition Response Hyperlipidemia Y Immunizations Vaccine Type Date Status Note Provider Nam e and Address Organization Details Recorded Time COVID-19, mRNA, LNP-S, PF, 30 mcg/0.3 mL dose 12/25/2020 completed Not Available [facility] 4 05:31:29 COVID-19, mRNA, LNP-S, PF, 30 mcg/0.3 mL dose 07/09/2021 completed Not Available [facility] 4 05:31:29 COVID-19, mRNA, LNP-S, bivalent, PF, 30 mcg/0.3 mL dose 06/24/2022 completed Not Available [facility] 05:31:29 Past Encounters Encounter ID Performer Location Encounter Start Date Encounter Closed Date Diagnosis/Indication Diagnosis SNOMED-CT Code Diagnosis ICD10 Code Diagnosis Note [id number] Krystal Marroquin PA-C [facility], [address] [place] [address] 08/01/2008 07:59:32 09/12/2008 02:02:29 [id number] [facility] - [address] [place] [address] 08/01/2008 09:36:52 08/01/2008 09:37:01 [id number] Krystal Marroquin PA-C [facility], [address] [place] [address] 09/06/2008 09:44:29 09/12/2008 02:02:29 [id number] Immanuel Krishna MD [facility], [address] [place] [address] 11/29/2008 13:02:54 12/06/2008 10:58:31 [id number] Krystal Marroquin PA-C [facility], [address] [place] [address] 01/04/2009 11:04:31 01/17/2009 10:41:04 [id number] Krystal Marroquin PA-C [facility], [address] [place] [address] 04/10/2009 10:13:41 04/10/2009 11:21:46 [id number] [facility] - [address] [place] [address] 04/10/2009 10:55:35 04/10/2009 10:55:41 [id number] Krystal Marroquin PA-C [facility], [address] [place] [address] 07/03/2009 08:02:14 07/08/2009 09:17:02 [id number] Krystal Marroquin PA-C [facility], [address] [place] [address] 09/06/2009 10:43:36 09/06/2009 14:16:58 [id number] Krystal Marroquin PA-C [facility], [address] [place] [address] 11/08/2009 10:42:53 11/08/2009 12:44:26 [id number] Krystal Marroquin PA-C [facility], [address] [place] [address] 04/23/2010 09:50:35 04/23/2010 11:10:07 [id number] Krystal Marroquin PA-C [facility], [address] [place] [address] 03/05/2011 10:44:54 03/05/2011 11:57:46 [id number] Krystal Marroquin PA-C [facility], [address] [place] [address] 06/04/2011 11:01:31 06/04/2011 12:36:05 [id number] Krystal Marroquin PA-C [facility], [address] [place] [address] 09/30/2011 14:47:07 09/30/2011 15:24:03 [id number] Krystal Marroquin PA-C [facility], [address] [place] [address] 04/06/2012 14:13:03 04/06/2012 15:50:32 [id number] Immanuel Krishna MD [facility], [address] [address] 06/20/2012 10:40:38 06/20/2012 11:56:35 [id number] Immanuel Krishna MD [facility], [address] [address] 12/22/2012 08:45:34 12/22/2012 09:34:51 [id number] Edwige Morgan, RDN, LDN, [facility] -[address] [place] [address] 03/03/2013 13:15:39 03/03/2013 14:51:58 [id number] Krystal Marroquin PA-C [facility], [address] [place] [address] 06/28/2013 09:11:53 06/28/2013 09:57:10 Pure hyperglyceridemia [id number] Pt TG 800's but he admits he [...] Aug 2011. Pt had testing Dec at [facility] as well and is to have f/u studies yearly with them. Hx- Pt on crestor because statin, tricor and lopid all have not worked for patient (see previous records). Niacin caused burning pain and flushing even with asa and being taken at night. Never tried with pectin. [id number] Immanuel Krishna MD [facility], [address] [address] 09/28/2013 10:14:45 09/28/2013 11:21:39 Pure hyperglyceridemia [id number] hx==Pancre atic mass stable on MRI of Aug 2011. Pt had testing Dec at [facility] as well and is to have f/u studies yearly with them. Hx- Pt on crestor because statin, tricor and lopid all have not worked for patient (see previous records). Niacin caused burning pain and flushing even with asa and being taken at night. Never tried with pectin. [id number] Immanuel Kirshna MD [facility], [address] [address] 01/04/2014 10:24:55 01/04/2014 11:09:12 Pure hyperglyceridemia [id number] hx==Pancre atic mass stable on MRI of Aug 2011. Pt had testing Dec at [facility] as well and is to have f/u studies yearly with them. Hx- Pt on crestor because statin, tricor and lopid all have not worked for patient (see previous records). Niacin caused burning pain and flushing even with asa and being taken at night. Never tried with pectin. [id number] Immanuel Krishna MD [facility], [address] [address] 04/09/2014 09:59:26 04/09/2014 10:37:00 Pure hyperglyceridemia [id number] hx==Pancre atic mass stable on MRI of Aug 2011. Pt had testing Dec at [facility] as well and is to have f/u studies yearly with them. Hx- Pt on crestor because statin, tricor and lopid all have not worked for patient (see previous records). Niacin caused burning pain and flushing even with asa and being taken at night. Never tried with pectin. [id number] Krystal Marroquin PA-C [facility], [address] [address] 12/11/2014 15:05:55 12/11/2014 15:46:15 Pure hyperglyceridemia 744969753 cont crestor 40 mg and fenofibrat e [...] Aug 2011. Pt had testing Dec at [facility] as well and is to have f/u studies yearly with them. Hx- Pt on crestor because statin, tricor and lopid all have not worked for patient (see previous records). Niacin caused burning pain and flushing even with asa and being taken at night. Never tried with pectin. Palpitations [id number] Wi ll check TSH with upcoming labs [...] cancel when he had the flu. Constipation [id number] se e above. [id number] Immanuel Krishna MD [facility], [address] [address] 12/24/2015 13:38:45 12/24/2015 14:48:59 Chest pain 89595977 R07.9 SOB and racing heart concerning . [...] of CABG x4 in father. Pure hyperglyceridemia 304261115 E78.1 Cont fenfibrate 54mg take 2 tabs daily and labs again in 3 months. TG stable and LDL stable. [id number] Immanuel Krishna MD [facility], [address] [address] 01/14/2017 14:12:47 01/14/2017 15:24:44 Pure hyperglyceridemia 556984272 E78.1 Order in chart for labs and [...] mg daily. TG stable and LDL stable. [id number] Immanuel Krishna MD [facility], [address] [address] 03/01/2018 11:04:10 03/01/2018 11:51:38 Pure hyperglyceridemia 091637927 E78.21 October 2017 labs to goal. Cont fenofibrat e 54 mg- 2 tabs daily and rosuvastat in 40 mg daily. Continue to work on diet and exercise and f/u in a year with labs every 3-6 months. (can be q 6 months as long as lipids stable) If TG rise then will have him come in sooner than a year. Chronic pancreatitis 235 334738 K86.1 hx of recurrent pancreatit is with recent episode October 2017. Sees GI and has f/u October Dr. Flor. Not symptomati c today. TG stable (see above) counseled him regarding ETOH, diet and lifestyle to prevent recurrent episodes. Functional disorder of intestine 03571202 K59.9 Per pt, intestinal obstructio n/dysmotil ity in October 2017. Requesting records from [place] for chart and review. Advised pt to contact PCP about referral to different surgeon if not able to get reschedule d with original surgeon since has been changed by office twice now per pt report. He indicates he will call Dr. Lyon to see how to proceed. [id number] Krystal Marroquin PA-C [facility], [address] [address] 09/13/2018 10:59:09 09/13/2018 11:54:10 Pure hyperglyceridemia 811438210 E78.1 Need to find records from hospitaliz [...] up after updated labs. Chronic pancreatitis 235 556388 K86.1 hx of recurrent pancreatit is with recent episode October 2017.Now with 2 more episodes. There is no endocrine reason for pancreatit is. TG in 300's do not cause pancreatit is. Needs to be sure with GI that gallstone pancreatit is and other causes are not present. Pt needing to f/u in [place] per GI here. Pt previously saw Dr. Flor. Pt not symptomati c today Functional disorder of intestine 45792499 K59.9 Per pt, intestinal obstructio n/dysmotil ity dg in October 2017. Again no records of this have been received since diagnosis. Pt needing to have f/u with GI in [place] and needing to follow up with both PCP and GI office to see when appt from referral is scheduled. Blood gluc ose outside reference range 105742918 R73.09 reported abnormal A1c meeting criteria for [...] glucose.If IFG then would NOT use actos. [id number] Immanuel Krishna MD [facility], [address] [address] 11/18/2018 13:48:23 11/18/2018 14:40:03 Pure hyperglyceridemia 060419700 E78.1 TG consistent ly between 250-350 on max rosuvastat in and low dose fenofibrat e. Continue current regimen. Prediabetes 943335117 R7 3.03 with FBG consistent ly under [...] PCP [place] about this. History of pancreatitis 9143803244 9107 Z87.19 Doesn't seem to be primarily related to TG since he has had bouts when TG were only in 300s. Liver func tion tests outside reference range 935166396 R94.5 ast/alt= 66/48; was 85/70 in 9.18.May be c/w fatty liver.This would another reason to consider meds to improve insulin sensitivit y.Pioglita zone at low dose might be worth considerin g- would improve TG and help fatty liver. [id number] Immanuel Krishna MD [facility], [address] [address] 05/24/2019 13:35:37 05/24/2019 15:01:28 Pure hyperglyceridemia 268450888 E78.1 Started pioglitazo ne in 11/2018. TG slightly down. Will be interested to see if less fatty liver.Lisandro est liver u/s soon but he is going to [place] in 07/19/19. Had MRI done 2-3 weeks ago.Hope to see copy of report for that. TG have been between 250-350 on max rosuvastat in and low dose fenofibrat e.Down to 230 on kelvin 30 mg. Hope to see further improvemen Lopez discussed importance of exercise.A gree needs to meet with RD- can be either through PCP or can be done here. Prediabetes 335426290 R7 3.03 With FBG consistent ly under [...] try 15 mg bid. History of pancreatitis [id number] 9107 Z87. Doesn't seem to be primarily related to TG since he has had bouts when TG were only in 300s. Non-alcoho lic fatty liver 642812850 K76.0 ast= 43 (05/11; was 66); was [...] pioglitazo ne x 3 months consistent ly [id number] Sharad Horn MD [facility], [facility] [address] [place] [address] 10/05/2019 11:30:52 10/05/2019 13:41:26 [id number] Immanuel Krishna MD [facility], [facility] [address] [place] [address] 02/07/2020 14:47:33 02/08/2020 07:38:24 Pure hyperglyceridemia 465213858 E78.1 Started pioglitazo ne in 11/2018. TG slightly down. Had wanted to have him get liver u/s but he was going to [place] in 07/19/19. Had MRI done 2-3 weeks ago.Hope to see copy of report for that. None received in 2019. TG have been between 250-350 on max rosuvastat in and low dose fenofibrat e.Down to 230 on kelvin 30 mg.02/09: 156/227 (was 230) / Stable and not increasing Also discussed importance of exercise. Prediabetes 611148938 R7 3.03 With FBG consistent ly under [...] 15 mg bid. Non-alcoho lic fatty liver 031503951 K76.0 AST= 36 (02/09): was 43 (05/11); [...] 3 months consistent ly History of pancreatitis 5810427243 9107 Z87.19 Doesn't seem to be primarily related to TG since he has had bouts when TG were only in 300s. [id number] Immanuel Krishna MD [facility], [address] [address] 10/01/2020 13:38:02 10/01/2020 18:29:21 Pure hyperglyceridemia 719698492 E78.1 Started pioglitazo ne in 11/2018. TG slightly down. Had wanted to have him get liver u/s but he was going to [place] in 07/19/19. TG better at 153 in 10/13. was 227 (02/09); was 230 (05/11); was 314 (11/08); No recent images studies. MRI at [facility] showed hepatic steatosis without focal pancreatic lesions (04/2019). JR López. TG have been between 250-350 on max rosuvastat in and low dose fenofibrat e. Down to 230 on kelvin 30 mg. 02/09: 156/227 (was 230) /47 / 64 Stable and not increasing Also discussed importance of exercise. Prediabetes 135150394 R7 3.03 With FBG consistent ly under [...] 15 mg bid. Non-alcoho lic fatty liver 124441777 K76.0 AST= 45 (10/13); was 36 (02/09): [...] will update liver u/s History of pancreatitis 8799363515 9107 Z. Doesn't seem to be primarily related to TG since he has had bouts when TG were only in 300s. Has ongoing intermitte nt pain. [id number] Immanuel Krishna MD [facility], [address] [address] 06/02/2021 15:07:09 06/02/2021 19:12:29 Pure hyperglyceridemia 504275536 E78.1 Started pioglitazo ne in 11/2018. TG slightly down. Had wanted to have him get liver u/s but he was going to [place] in 07/19/19. IS=130 (06/12); was 209 (04/12); was 153 (10/13); was 227 (02/09); was 230 (05/11); was 314 (11/08);Hig hest was 1914 in 2007. Was 877 in 07/05.TG were between 250-350 on max rosuvastat in and low dose fenofibrat e. Some improvemen t on kelvin 30 mg. but mostly stable in low 200s. Stable and not increasing Had U/S in 10/13 confirming NAFLD. MRI at [facility] showed hepatic steatosis without focal pancreatic lesions (04/2019).M RI might be better if want to see if any changes.GI - [facility] in [place]. Non-alcoho lic fatty liver 964138155 K76.0 AST= 59 (06/12); was 43 (04/12); [...] help with scoring severity History of pancreatitis 8633326543 9107 Z87.19 Doesn't seem to be primarily related to TG since he has had bouts when TG were only in 300s.Much less pain since GB out (per pt) in 02/10.Now on Creon 06/12: Left message to discuss incretin use with [facility] EPPS* Incretin has potential rare s/e of pancreatit is but since DM and Type 2 sebas betes mellitus 27726757 E11.9 New dx in 06/12- Has transition [...] to discuss with GI ([facility] Miguel in [place]) to see what she feels his risk is for future bouts of pancreatit is. Other option would be to go with metformin for T2DM but not much benefit for NAFLD. Reached Dr. Valdez ([facility] [facility]) and discussed case.She notes that his pancreatit is was likely more biliary in etiology. Since GB out, he may well not have as high a risk as previously . In addition, she says he did not have evidence of severe chronic pancreatic damage (calcifica tions, etc.). Discussed that imaging to better stage NAFLD may be helpful in making decision. [id number] Immanuel Krishna MD [facility], [address] [address] 11/19/2021 16:39:13 11/20/2021 19:18:45 Pure hyperglyceridemia 026928625 E78.1 Started pioglitazo ne in 11/2018. TG [...] U/S in 10/13 confirming NAFLD. MRI at [facility] showed hepatic steatosis without focal pancreatic lesions (04/2019).M RI might be better if want to see if any changes. 08/12: Elastograp hy: IGR to median ratio is <15% so liver stiffness is acceptable .MICH- [facility] in [place]. Type 2 sebas betes mellitus 26798004 E11.9 Since 06/12 (a1c values 6.5 and [...] will add much. Non-alcoho lic fatty liver 888660169 K76.0 AST= 50 (11/11); was 39 (08/12); [...] liver. Previous conversati on with Dr. Valdez ([facility]) in 2020.She noted that his pancreatit [...] with scoring severityNA FLD score= 1.1 (https://w roxi.FamilyID culator.co m/health/n afld-fibro sis-score) FIB4 calculatio n: 1.85 (https://w roxi.[facility]edu /page/clin ical-calcu lators/fib -4)FIB-4 score <1.45 had a negative predictive value of 90% for advanced fibrosis (includes early bridging fibrosis to cirrhosis) .FIB-4 >3.25 has a 97% specificit y and a positive predictive value of 65% for advanced fibrosis. Appears that patient is less likely to have advanced fibrosis. History of pancreatitis 9265054751 9107 Z87.19 Doesn't seem to be primarily related to TG since he has had bouts when TG were only in 300s.Much less pain since GB out (per pt) in 02/10.Now on Stephanie Valdez ([facility]) reports his pancreatit is was likely more biliary in etiology. Still, have to weigh benefits of incretin (GLP1-RA) against rare risk of pancreatit is [id number] Immanuel Krishna MD [facility], [address] [address] 09/29/2022 15:13:09 10/02/2022 09:57:01 Pure hyperglyceridemia 675958285 E78.1 Has been on rosuva 40 and [...] U/S in 10/13 confirming NAFLD. MRI at [facility] showed hepatic steatosis without focal pancreatic lesions (04/2019).M RI might be better if want to see if any changes. 08/12: Elastograp hy: IGR to median ratio is <15% so liver stiffness is acceptable .10/15: Clinically stable. If increases further, could increase fenofibrat e or consider vascepa. MICH- [facility] in [place]. Type 2 sebas betes mellitus 57981674 E11.9 Since 06/12 (a1c values 6.5 and [...] benefit for NAFLD. Non-alcoho lic fatty liver 656110856 K76.0 AST= 35 (06/13); was 50 (11/11); [...] liver. Previous conversati on with Dr. Valdez ([facility]) in 2020.She noted that his pancreatit [...] with scoring severityNA FLD score= 1.1 (https://w roxi.FamilyID culator.co m/health/n afld-fibro sis-score) FIB4 calculatio n: 1.85 (https://w roxi.[facility]edu /page/clin ical-calcu lators/fib -4)FIB-4 score <1.45 had [...] of low dose incretin. History of pancreatitis 6992023411 9107 Z87.19 Doesn't seem to be primarily related to TG since he has had bouts when TG were only in 300s.Much less pain since GB out (per pt) in 02/10.Now on Stephanie Valdez ([facility]) reports his pancreatit is was likely more biliary in etiology. Still, have to weigh benefits of incretin (GLP1-RA) against rare risk of pancreatit is [id number] Immanuel Krishna MD [facility], [address] [address] 09/15/2023 12:13:03 09/20/2023 07:15:34 Pure hyperglyceridemia 936196966 E78.1 Uncontroll ed GI- [facility] in [place]. Has been on rosuva 40 and fenofibrat [...] U/S in 10/13 confirming NAFLD. MRI at [facility] showed hepatic steatosis without focal pancreatic lesions (04/2019).M RI might be better if want to see if any changes. 08/12: Elastograp hy: IGR to median ratio is <15% so liver stiffness is acceptable .10/15: Clinically stable. If increases further, could increase fenofibrat e or consider vascepa. 09/15: change fenofibrat e from 108 to 120 (single pill) Type 2 sebas betes mellitus 82606003 E11.9 Uncontroll ed A1c values have increased [...] NAFLD. Previous conversati on with Dr. Valdez ([facility]) in 2020.She noted that his pancreatit [...] glucose values improving. Non-alcoho lic fatty liver 840638849 K76.0 AST= 22 (09/15) was 35 (06/13); [...] liver. Previous conversati on with Dr. Valdez ([facility]) in 2020. reviewed again 2022.She noted [...] sis-score) FIB4 calculatio n: 1.85 (https://w roxi.[facility]it [facility]edu /page/clin ical-calcu lators/fib -4)FIB-4 score <1.45 had [...] of low dose incretin. History of pancreatitis 2405629268 9107 Z87.19 Doesn't seem to be primarily related to TG since he has had bouts when TG were only in 300s.Much less pain since GB out (per pt) in 02/10.Now on Stephanie Valdez ([facility]) reports his pancreatit is was likely more biliary in etiology. Still, have to weigh benefits of incretin (GLP1-RA) against rare risk of pancreatit is Uncontroll ed type 2 diabetes mellitus 595171811 E11.65 a1c= 8.1 (09/15); was 8.9 (05/15) was 8.7 (per pt by PCP POC); 8.2 (02/12); was 7.7 (01/12) was 7.1 (10/15); was 6.8 (06/13 and 03/13);Piog litazone only (to try and help with high TG and fatty liver Options:BREWER - increased risk for [id number] - increased risk for GUincretin - risk for pancreatit is but he hasn't had any severe bouts since GB out.He didn't tolerate metformin when tried in past. Metformin not much benefit for NAFLD. Tolerating trulicity 0.75. Try increase to 1.5. [id number] Immanuel Krishna MD [facility], [address] [address] 05/18/2023 12:46:50 05/18/2023 16:51:51 Pure hyperglyceridemia 846467632 E78.1 Has been on rosuva 40 and [...] U/S in 10/13 confirming NAFLD. MRI at [facility] showed hepatic steatosis without focal pancreatic lesions (04/2019).M RI might be better if want to see if any changes. 08/12: Elastograp hy: IGR to median ratio is <15% so liver stiffness is acceptable .10/15: Clinically stable. If increases further, could increase fenofibrat e or consider vascepa.: reports had MRI thru [place]. No recent bouts of pancreatit is. Previou s conversati on with Dr. Valdez ([facility]) in 2020.She noted that his pancreatit is was likely more biliary in etiology. Since GB out, he may well not have as high a risk as previously . In addition, she says he did not have evidence of severe chronic pancreatic damage (calcifica tions, etc.)GI - [facility] Miguel in [place].: left message with GI- want to update and confirm OK to try incretin. Non-alcoho lic fatty liver 221964048 K76.0 Mostly OK in 2021 and 2022. AST generally higher than ALT.In NAFLD, pattern is usually that ALT > AST Pioglitazo ne prescribed in early 12/09 but not refilled until late 02/08 and then in late 05/11. However, seems to be helping with TG and LFTs likely from fatty liver. Previous conversati on with Dr. Valdez ([facility]) in 2020.She noted that his pancreatit [...] with scoring severityNA FLD score= 1.1 (https://w roxi.[employer].co m/health/n afld-fibro sis-score) FIB4 calculatio n: 1.85 (https://gwyn diane.hepatit isc..[facility] /page/clin ical-calcu lators/fib -4)FIB-4 score <1.45 had [...] try low dose incretin. History of pancreatitis [id number] 9107 Z87.19 Doesn't seem to be primarily [...] is Uncontroll ed type 2 diabetes mellitus [id number] E11.65 a1c= 8.7 (per pt by PCP POC); 8.2 (02/12); was 7.7 (01/12) was 7.1 (10/15); was 6.8 (06/13 and 03/13);Piog litazone only (to try and help with high TG and fatty liver Options:BREWER - increased risk for [id number] - increased risk for GUincretin - risk for pancreatit is but he hasn't had any severe bouts since GB out.He didn't tolerate metformin when tried in past. Metformin not much benefit for NAFLD. - message to GI (José Miguel) 05/15. [id number] Immanuel Krishna MD Endocrino logy, [address] [address] 06/10/2023 10:01:00 06/10/2023 15:44:28 Pure hyperglyceridemia [id number] E78.1 Has been on rosuva 40 and [...] U/S in 10/13 confirming NAFLD. MRI at [facility] showed hepatic steatosis without focal pancreatic lesions (04/2019).M RI might be better if want to see if any changes. 08/12: Elastograp hy: IGR to median ratio is <15% so liver stiffness is acceptable .10/15: Clinically stable. If increases further, could increase fenofibrat e or consider vascepa.: reports had MRI thru [place]. No recent bouts of pancreatit is. Previou s conversati on with Dr. Valdez ([facility]) in 2020.She noted that his pancreatit is was likely more biliary in etiology. Since GB out, he may well not have as high a risk as previously . In addition, she says he did not have evidence of severe chronic pancreatic damage (calcifica tions, etc.)GI - José Miguel in [place].: left message with GI- want to update and confirm OK to try incretin. Uncontroll ed type 2 diabetes mellitus [id number] E11.65 a1c= 8.7 (per pt by PCP POC); 8.2 (02/12); was 7.7 (01/12) was 7.1 (10/15); was 6.8 (06/13 and 03/13);Piog litazone only (to try and help with high TG and fatty liver Options:BREWER - increased risk for zgnaECYN5r - increased risk for GUincretin - risk for pancreatit is but he hasn't had any severe bouts since GB out.He didn't tolerate metformin when tried in past. Metformin not much benefit for NAFLD. - message to GI (José Miguel) 05/15. Non-alcoho lic fatty liver [id number] K76.0 Mostly OK in 2021 and 2022. AST generally higher than ALT.In NAFLD, pattern is usually that ALT > AST Pioglitazo ne prescribed in early 12/09 but not refilled until late 02/08 and then in late 05/11. However, seems to be helping with TG and LFTs likely from fatty liver. Previous conversati on with Dr. Valdez ([facility]) in 2020.She noted that his pancreatit [...] with scoring severityNA FLD score= 1.1 (https://w roxi.Room 8 Studioical culator.co m/health/n afld-fibro sis-score) FIB4 calculatio n: [...] try low dose incretin. History of pancreatitis [id number] 9107 Z87.19 Doesn't seem to be primarily related to TG since he has had bouts when TG were only in 300s.Much less pain since GB out (per pt) in 02/10.Now on Stephanie Valdez ([facility]) reports his pancreatit is was likely more biliary in etiology. Still, have to weigh benefits of incretin (GLP1-RA) against rare risk of pancreatit is [id number] Immanuel Krishna MD Endocrino logy, [address] [address] 06/25/2023 09:42:36 06/28/2023 07:55:00 Pure hyperglyceridemia [id number] E78.1 Has been on rosuva 40 and [...] U/S in 10/13 confirming NAFLD. MRI at [facility] showed hepatic steatosis without focal pancreatic lesions (04/2019).M RI might be better if want to see if any changes. 08/12: Elastograp hy: IGR to median ratio is <15% so liver stiffness is acceptable .10/15: Clinically stable. If increases further, could increase fenofibrat e or consider vascepa.: reports had MRI thru [place]. No recent bouts of pancreatit is.07/15: Pt reports had CT recently. Try to get results. Previou s conversati on with Dr. Valdez ([facility]) in 2020.She noted that his pancreatit [...] liver. Uncontroll ed type 2 diabetes mellitus [id number] E11.65 a1c= 8.9 (05/15); was 8.2 (02/12); was 7.7 (01/12) was 7.1 (10/15); was 6.8 (06/13 and 03/13); Pioglitazo ne to try and help with high TG and fatty liverHe didn't tolerate metformin when tried in past. Metformin not much benefit for NAFLD. Trulicity started and now at 0.75.Would like to increase but want to get results of CT from [place] first. Non-alcoho lic fatty liver [id number] K76.0 Mostly OK in 2021 and 2022. ast/alt= 38/36 (02/12)AST has generally been higher than ALT. In NAFLD, pattern is usually that ALT > AST Pioglitazo ne prescribed in early 12/09 but not refilled until late 02/08 and then in late 05/11. However, seems to be helping with TG and LFTs likely from fatty liver. Previous conversati on with Dr. Valdez ([facility]) in 2020.She noted that his pancreatit [...] help liver and BG) History of pancreatitis [id number] 9107 Z87.19 Doesn't seem to be primarily related to TG since he has had bouts when TG were only in 300s.Much less pain since GB out (per pt) in 02/10.Now on Creon José Miguel ([facility]) reports his pancreatit is was likely more biliary in etiology. [id number] Immanuel Krishna MD Endocrino logy, [address] [address] 10/28/2023 12:55:15 10/28/2023 13:41:48 Pure hyperglyceridemia [id number] E78.1 Uncontroll ed GI- José Miguel in [place]. Has been on rosuva 40 and fenofibrat [...] U/S in 10/13 confirming NAFLD. MRI at [facility] showed hepatic steatosis without focal pancreatic lesions (04/2019).M RI might be better if want to see if any changes. 08/12: Elastograp hy: IGR to median ratio is <15% so liver stiffness is acceptable .10/15: Clinically stable. If increases further, could increase fenofibrat e or consider vascepa. 09/15: change fenofibrat e from 108 to 120 (single pill) Uncontroll ed type 2 diabetes mellitus [id number] E11.65 a1c= today; was 8.1 (09/15); was 8.9 (05/15) was 8.7 (per pt by PCP POC); 8.2 (02/12); was 7.7 (01/12) was 7.1 (10/15); was 6.8 (06/13 and 03/13);Piog litazone only (to try and help with high TG and fatty liver Options:BREWER - increased risk for bkyhEOEB7c - increased risk for GUincretin - risk [...] depend on results. Non-alcoho lic fatty liver 070245926 K76.0 AST= 22 (09/15) was 35 (06/13); [...] liver. Previous conversati on with Dr. Valdez ([facility]) in 2020. reviewed again 2022.She noted [...] of low dose incretin. History of pancreatitis [id number] 9107 Z87.19 Doesn't seem to be primarily related to TG since he has had bouts when TG were only in 300s.Much less pain since GB out (per pt) in 02/10.Now on Creon José Miguel ([facility]) reports his pancreatit is was likely more biliary in etiology. Still, have to weigh benefits of incretin (GLP1-RA) against rare risk of pancreatit is [id number] Immanuel Krishna MD Endocrino logy, [address] [address] 12/07/2023 12:48:58 12/10/2023 13:40:08 Pure hyperglyceridemia 587575036 E78.1 Has been on rosuva 40 and fenofibrat e (54x2) Started pioglitazo ne in 11/2018. TG slightly down.11/13: 117/177/51 /311/24: 112/214/47 /229/23: 118/189/52 /286/23: 147/245/46 /525/23: 146/250/45 /60 TG= 289 (06/13); was 231 (11/11); was 271 (08/12); was 223 (06/12); was 209 (04/12); was 153 (10/13); was 227 (02/09); was 230 (05/11); was 314 (11/08);*Hi ghest [id number] 2007. Was 877 in 07/05.* - TG have been between 250-350 on max rosuvastat in and low dose fenofibrat e. Some improvemen t on kelvin 30 mg. but mostly stable in low 200s. Had U/S in 10/13 confirming NAFLD. MRI at [facility] showed hepatic steatosis without focal pancreatic lesions (04/2019).M RI might be better if want to see if any changes. 08/12: Elastograp hy: IGR to median ratio is <15% so liver stiffness is acceptable .GI- José Miguel in [place]. 10/15: Clinically stable. If increases further, could increase fenofibrat e or consider vascepa. 09/15: change fenofibrat e from 108 to 120 (single pill) Uncontroll ed type 2 diabetes mellitus [id number] E11.65 a1c= 8.3 (11/13); was 8.1 (09/15); was 8.9 (05/15) was 8.7 (per pt by PCP POC); 8.2 (02/12); was 7.7 (01/12) was 7.1 (10/15); was 6.8 (06/13 and 03/13);Piog litazone only (to try and help with high TG and fatty liver Options:BREWER - increased risk for buvcJDHM5o - increased risk for GUincretin - risk [...] so we can talk with ortho about this.Revmason oewn S/S hypoglycem ia - handout given, reviewed how/when to treat ? pt aware and no lows Non-alcoho lic fatty liver 256112140 K76.0 AST= 22 (09/15) was 35 (06/13); [...] liver. Previous conversati on with Dr. Valdez ([facility]) in 2020. reviewed again 2022.She noted [...] with scoring severityNA FLD score= 1.1 (https://w ww.Room 8 Studioical culator.co m/health/n afld-fibro sis-score) FIB4 calculatio n: [...] of low dose incretin. History of pancreatitis [id number] 9107 Z87.19 Doesn't seem to be primarily related to TG since he has had bouts when TG were only in 300s.Much less pain since GB out (per pt) in 02/10.Now on Creon José Miguel ([facility]) reports his pancreatit is was likely more biliary in etiology. Still, have to weigh benefits of incretin (GLP1-RA) against rare risk of pancreatit is [id number] Immanuel Krishna MD Endocrino logy, [address] [address] 04/05/2024 11:53:58 04/06/2024 08:45:17 Pure hyperglyceridemia 183138097 E78.1 On rosuva 40 and fenofibrat e [...] U/S in 10/13 confirming MASLD. MRI at [facility] showed hepatic steatosis without focal pancreatic lesions [...] daily. Uncontroll ed type 2 diabetes mellitus [id number] E11.65 a1c= 7.8 (02/13); was 8.3 (11/13) [...] NAFLD. Previous conversati on with Dr. Valdez ([facility]) in 2020.She noted that his pancreatit [...] or sulfonylur ea). Non-alcoho lic fatty liver 005617642 K76.0 AST= 22 (09/15) was 35 (06/13); [...] liver. Previous conversati on with Dr. Valdez ([facility]) in 2020. reviewed again 2022.We discussed [...] olerating GLP1-RA well. Increase to max dose Cornelio (04/15)Sche dule for updated elastograp hy. History of pancreatitis [id number] 9107 Z87.19 Doesn't seem to be primarily related to TG since he has had bouts when TG were only in 300s.Much less pain since GB out (per pt) in 02/10.Now on Creon Previous conversati on with Dr. Valdez ([facility]) in 2020.She noted that his pancreatit [...] These factors increase complexity . José Miguel ([facility]) reports his pancreatit is was likely more biliary in etiology. Still, continue to monitor to assess benefits vs. risks of incretin (GLP1-RA) against rare risk of pancreatit is [id number] Immanuel Krishna MD Endocrino logy, [address] [address] 08/03/2024 09:56:59 08/08/2024 07:28:51 Uncontrolled type 2 diabetes mellitus 755543934 E11.65 Updated A1c - 7.6 % 04/2024 [...] PM ---- AND HS-------- -----08/03 --------- 85-------- -----12/11 --------- 97-------- -------PM - [...] opt to wait and see next a1c. [id number] Immanuel Krishna MD Endocrino logy, [facility] [address] [place] [address] 11/15/2024 14:55:41 11/20/2024 07:25:24 Uncontrolled type 2 diabetes mellitus [id number] E11.65 GOALS:- Maxmize control of diabetes- Minimize risks for complicati ons of diabetes (Renal/Eye /Nerve)- Minimize risk for hypoglycem iA- Minimize risk for CVD (blood pressure and lipids) a1c= 7.2 (09/16) was 7.6 (05/16) was 7.8 (02/13); was 8.3 (11/13) was 8.1 (09/15); was 8.9 (05/15) was 8.7 (per pt by PCP POC); 8.2 (02/12); was 7.7 (01/12) was 7.1 (10/15); was 6.8 (06/13 and 03/13);Piog litazone only (to try and help with high TG and fatty liver. He didn't tolerate metformin when tried in past. Metformin not much benefit for NAFLD. Previous conversati on with Dr. Valdez ([facility]) in 2020.She noted that his pancreatit [...] discuss short term tx (insulin or sulfonylur ea).11/14: a1c closer to goal. Max trulicity and KELVIN good combinatio n. Pure hyperglyceridemia [id number] E78.1 On rosuva 40 and fenofibrat e (54x2) Started pioglitazo ne in 11/2018. TG much better (also with a1c better).: 139/145/70 /406/24: 109/123/52 /321/24: 112/214/47 /229/23: 118/189/52 /286/23: 147/245/46 [...] U/S in 10/13 confirming MASLD. MRI at [facility] showed hepatic steatosis without focal pancreatic lesions [...] daily. doing well on 54mg (2 tabs) daily.11/14 : rosuva and fenofibrat e (54x2) and KELVIN. Non-alcoho lic fatty liver [id number] K76.0 LFTs OK AST= 22 (09/15) was 35 (06/13); was [...] liver. Previous conversati on with Dr. Valdez ([facility]) in 2020. reviewed again 2022.We discussed [...] (includes early bridging fibrosis to cirrhosis) .FIB-4 score >3.25 has a 97% specificit y and a positive predictive value of 65% for advanced fibrosis. Appears that patient is less likely to have advanced fibrosis.T olerating GLP1-RA well. Increased to max dose Trulicity (04/15)Elas tography: compensate d advanced chronic liver disease (04/15) History of pancreatitis [id number] 9107 Z87.19 Doesn't seem to be primarily related to TG since he has had bouts when TG were only in 300s.Much less pain since GB out (per pt) in 02/10.Now on Creon Previous conversati on with Dr. Valdez ([facility]) in 2020.She noted that his pancreatit [...] These factors increase complexity . José Miguel ([facility]) reports his pancreatit is was likely more biliary in etiology. Still, continue to monitor to assess benefits vs. risks of incretin (GLP1-RA) against rare risk of pancreatit is Hypercalcemia 36321925 E 83.52 NEW PROBLEM (11/14)- not controlled Ca= 10.9 (09/16) was 10.0 (02/13) creat= 1.5 (09/16) was 1.3 (02/13)Had borderline values in past.Might be due to slight increase in creatinine but he has had values of 1.5 in past. Update labs and check PTH and Vit D. Health Concerns Section Related Observation LastModified by Organization Detai ls LastModified Time None Recorded Concern Status LastModified by Organization Details LastModified Time None Recorded Advance Directives Directive None Recorded Payers Encounter Date Sequence Insurance Name Policy Number Policy Ozuna Covered Member ID Ozuna Member ID Guarantor Name 10/28/2023 1 [place] [employer] Elvin Sutherland [id number] Elvin Sutherland 10/28/2023 2 [place] [facility] Elvin Sutherland [id number] Elvin Sutherland 12/07/2023 1 [place] [employer] Elvin Sutherland [id number] Elvin Hung Koko 12/07/2023 2 [place] [facility] Elvin Hung Koko [id number] Elvin Hung Koko 04/05/2024 1 MEDICARE B-[place]: [facility] Elvin Hung Koko [id number] Elvin Hung Koko 04/05/2024 2 [place] [facility] Elvin Hung Koko [id number] Elvin Hung Koko 08/03/2024 1 [place] [facility] Elvin Hung Koko [id number] [id number] Elvin Hung Koko 08/03/2024 2 [place] [facility] Elvin Hung Koko [id number] Elvin Hung Koko 11/15/2024 1 MEDICARE B-[place]: [facility] Elvin Hung Koko [id number] Elvin Hung Koko 11/15/2024 2 [place] [facility] Elvin Hung Koko [id number] Eb Koko Notes Date Note Type Note Provider Name and Address Organization Details Recorded Time 10/27 text/ html Previous Hx :Had previous Nurse visit 06/2023 - dietary intake done at that visitMD LV - 08/2023 :Options:BREWER- increased risk for zpnwCYCX2i- increased risk for GUincretin- risk for pancreatitis [...] place until 08/2024DME forms completed?N/ANurse : Valerie Thomson,RN Immanuel Krishna MD [address] [facility], [place], [phone] [place] [address] 16:58:25 12/06 text/ html Previous Hx :Nurse visit 06/2023 - dieta ry intake done at that visitNurse visit 10/2023 -MD MCCOY - 08/2023 :Options:BREWER- increased risk for nwulPPEC7e- increased risk for GUincretin- risk for pancreatitis [...] has been bothering him Seen by GI toludmila 10/28/23 - Dr Valdez:- had ABD MRI [...] lowsNV with MD - 04/05/24 12:20 PM [facility] with Nursing - 6 weeksRX's sent to pharmacy - If none - refills needed on any meds ? Trulicity 3 mg to [facility] Lab orders - In place until 08/2024DME forms completed?N/ANurse : LAURA Arauz MD [address] [place] [address], [place], [phone], [facility] 4 19:01:09 04/05 text/ html DiabetesReported bypatient.Labs:last [...] to stop. PCP: Crystal: José Miguel in [facility] to [place] for GI- told pancreas was OK. Thought fatty liver was contributing. Follow-Up: non-alcoholic fatty liverFollow-Up: pure hyperglyceridemiaFollow-Up: pure hypercholesterolemiaHypertriglyceridemiaDiab etes Type IIissues; wants to schedule cortisone injection with pain management in [place] and needs to be able to tell his Aic at scheduling time . I will [id number] order for lab today LV on 09/15las nurse visit on 12/14LAst labs on 02/13 A1C- 7.8Lab orders in place until 09/16Checking blood sugars 3 times fasting AM , before dinner, At [facility] uses meter and will add to chart [...] back issues. FAMILY Hx (updated):Mom alive in [place] (81 in 05/15). On dialysis since 2013. T2DM.6 Sisters healthy.No kid: No changes.04/15: Mom doing OK (82); Dad 02/13- colon CA (age 89) PANCREATITIS AND FATTY LIVER:Pancreatitis 12/08/2020- had gallbladder removed 01/2021 - [facility]. Feeling dmfivu87/21: Saw surgeon in [place] to take GB out- Surgery was 02/10.No [...] with standing in AM. Immanuel Krishna MD [address] [place] [address], [place], [phone] , [facility] 4 13:12:46 12/12 /2024 text/ html HX :[facility] Nursing 10/2023:Last HgbA1c [...] GI d/t GI upset and hx pancreatitis/fatty [id number] - sand which or rice and beans [...] [facility] Valdez - GI - Aug 2024Updated A1c - 7.6 % [...] 104 106 -142 12/3-- 103 162--------- 116 ----12/2 104 10 7 12/1----- -------103 116 --------[address] Krishna 10/10/24 = [facility] 3:30 PMNext Visit RN -Labs - Due for a1c this monthNurse: LAURA Arauz MD [address] [place], [place] [address], [phone] [place] [address] 13:18:52 11/15 text/ html DiabetesReported bypatient.Labs:last Hemoglobin A1C: at goal (7.2 (09/16) was 7.6 (05/16) was 7.8 (02/13); was 8.3 (11/13) was 8.1 (09/15); was 8.9 (05/15) was 8.7 (per pt by PCP POC); 8.2 (02/12); was 7.7 (01/12) was 7.1 (10/15); was 6.8 (06/13 and 03/13); was 6.6 (11/11 and 08/12 and 06/12); was 6.5 (04/12); was 6.3 (10/13): was 6.3 (02/09); was 6.5 (11/08) but FBG= 104. 05/11: BG= 93.); microalbumin/creatinine ratio: 2024; normal; serum creatinine: (creat= 1.5 (09/16) was 1.3 (02/13)); Was on PO steroids (PCP vane) in 10/17 for neck inflammation. Off now. sugars up- drinks water to try and bring down. 05/15: on prednisone in 04/22 x 5 days for back inflammation. Diabetes Medications:GLP1-RA: Dulaglutide (Trulicity); Long-acting insulins: (30mg daily.( was 15 bid started 2018)); Other: Pioglitazone (Actos); Tried metformin- GI s/e. Trulicity 3.0 (weekly). Helping. No problems with GI s/e. Has had pancreatitis but felt to be from other reasons (see previous discussion with MICH Valdez) Renal/Hypertension (HTN) MedsNO MEDS Lipid Medications:Statins: Rosuvastatin; Fibrates: Fenofibrate (54 mg x2 daily) Other Medications:Linzess CREON (11/2020 by GI); TID Generally eats 1-2 meals/day. bloating. Associated Symptoms:no polyuria (2-3x per day.); no nocturia (1x per night.); no burning or discomfort with urination; no polydypsia (usually can drinki four 16 oz bottles. Dry mouth (tizanidine).);blurred vision(with reading. (Gus)- appt in 07/16. new glasses.); WEIGHT (home): 152 (11/14); was 167 (04/15); was 175 (09/15); was 190s [...] above 6.5% 06/12 History of chronic pancreatitis.AST= 29 (09/16); was 27 (02/13) was 22 (09/15) was 45 (04/14@#PVIX); was 38 (02/12); was 35 (06/13) 45 (10/13); was 36 (02/09): was 43 (05/11); was 66(11/08); was 70 (05/10); was 68 (11/07); ALT= 27 (09/16); was 32 (02/13); was 29 (09/15) was 27 (04/14@PVIX) was 36 (02/12); was 39 (06/13); was 39 (10/13); was 52 (02/09); was 43 (05/11); was 48 (11/08); was 85 (05/10); was 67 (11/07) 2018- Put on Actos given pre-diabetes and high TG and fatty liver. TG and AST both improving.He was placed on metformin 750 mg but told it was OK to stop. 05/15: GI is José Miguel. MRI of liver 2022- still has NAFLD. told of cyst in pancreas - watching. LIPIDS:rosuva and fenofibrate09/16: 139/145/70/406: 109/123/52/32TG highest was 1900 in 2007 and 877 in 07/05.09/15: 112/214/47//: 147/245/46/52 METER DOWNLOAD/REVIEWAM= 90-160* (11/14); was 120-220 (04/15);*highs in AM when has juice/milk in evening* afternoon (post-meal)= 110-220 (04/15); 5PM values (eats at 2-3PM)= 100-200 (11/14; higher values are post-meal).HS= 100-220 (11/14); was 100-190 (04/15); 06/12: Had 2 values at or above 6.5% and therefore indicates T2DM.May be eligible for meds to help fatty liver. 2019- Put on Actos given pre-diabetes and high TG and fatty liver. TG and AST both improving.He was placed on metformin 750 mg but told it was OK to stop. PCP: Aretha: José Miguel in [facility] to [place] for GI- told pancreas was OK. Thought fatty liver was contributing. Follow-Up: non-alcoholic fatty liverFollow-Up: pure hyperglyceridemiaFollow-Up: pure hypercholesterolemiaHypertriglyceridemiaDiab etes Type IILV on 04/15last nurse visit on 08/15LAst labs on 09/16 A1C- 7.2 down from last oneLabs cuedGirlfriend in visit todayChecking blood sugars 3 times fasting AM , before dinner, At [facility] uses meter will write done informationPT was in the hospital at [facility] in Oct 09 to for a pancreatic attack -has chronicPT is seeing a GI doctor [facility] [place] 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 (was off since 06/14)Injection for migraine q 28 days.COVID in 02/13. lasted about a week. No meds.11/14: admitted [place] 10/17- pancreatitis. José Miguel referred pt. to [facility]. Referred to [facility]. Told normally straight tube in pancreas is crooked. He wants to do ERCP (01/14); SOCIAL Hx (updated):Walks for exerciseLives with girlfriend (Kaylynn)05/15: walks a little - limited by low back. 1/2 mile. 4x per week.09/15: Walks: about 2 miles at a time.04/15: Walking 1 mile TIS. Limited by back issues.11/14: Walks as in past. FAMILY Hx (updated):Mom alive in [place] (81 in 05/15). On dialysis since 2013. T2DM.6 Sisters healthy.No kids04/15: Mom doing OK (82); Dad 02/13- colon CA (age 89)11/14: Mom 04/15 (CVA). Sisters [place] PANCREATITIS AND FATTY LIVER:Pancreatitis 12/08/2020- had gallbladder removed 01/2021 - [facility]. Feeling /21: Saw surgeon in [place] to take GB out- Surgery was 02/10.No [...] from oxy. Can have diarrhea since GB out.11/14: admitted [place] 10/17- pancreatitis. José Miguel referred pt. to [facility]. Referred to [facility]. Told normally straight tube in pancreas is crooked. He wants to do ERCP (01/14); History of chronic pancreatitis.LFTs (see below) Has nausea- uses zofran prn.No EtOH. HYPERCALCEMIACa= 10.5 (11/14 [facility]); was 10.9 (09/16) was 10.0 (02/13) was 10.1 (11/13); was 9.8 (09/15)Hx of kidney stones.Hx of stomach acid.No clear bone pain- sometimes in joints.D= 35 (11/14 [facility]);- check PTH ROS:Ongoing h/a- happens daily. Imitrex for that.Comes from neck pain (calls the migraines) mostly from neck pain.Neck problems (had fusion and still has disc problems).OFF emgality didn't help.04/15: Getting Aimovig and sumitriptan.11/14: no changes. No SOB.COVID in 03/15 and 04/13. No CP or pressure.Ongoing Heartburn. omeprazole. MUSCLES: Ongoing- Neck, back and shoulders. Lately (04/15), right arm. No temperature intolerance. Ongoing- cold sweats. Occ. dizziness- lying/sitting/standing. can be pale when happens Immanuel Krishna MD [address] [place] [address], [place], [address] , [facility] 5 13:53:52
--- OUTSIDE RECORDS SUMMARY | 2025-01-08 11:46 | XMS_ITS | Encounter Summary ---
Author Organization [facility] Address [address] [place] [address] Care Team Providers Care Band Bias Machine Operator Name Role Phone Tyrell Perry Primary Care Provider [phone] Encounter Details Date Type Department Care Team (Late st Contact Info) Description 12/04/2024 myChart Message [facility] [address] [place] [address] [employer] Central Office Installer: Rachael Avitia, RN [place] Social History Tobacco Use Types Packs/Day Years Used Date Smoking Tobacco: Never Assessed Sex and Gender Information Value Date Recorded Sex Assigned at Male 09/18/2024 4:11 PM EST Legal Sex Male 5:34 AM EDT Gender Identity Male 09/18/2024 4:11 PM EST Sexual Orientation Choose not to disclose 2024 1:34 PM EDT documented as of this encounter Plan of Treatment Upcoming Encounters Date Type Department Care Team (Latest Contact Info) Description 03/21/2025 11:00 AM EDT Pre-Admission Testing [facility] [address] [facility] [address] [place] [address] 04/04/2025 11:55 AM EDT Hospital Encounter [facility] Operating Room [address] [place] [address] J Luis Dalton MD [address] [place] [address] 04/04/2025 11:55 AM EDT - 04/04/2025 12:50 PM EDT Surgery [facility] Operating Room [address] [place], [place] [id number] J Luis Dalton MD [address], [place] [id number] ENDOSCOPIC RETROGRADE CHOLANGIOPANCREATOG BERNICE, DIAGNOSTIC WITH POSSIBLE BRUSHING OR WASHING AND POSSIBLE MODERATE SEDATION [10299 (CPT??)] Scheduled Procedures Name Priority Associated Diagnoses Date/Ti me ENDOSCOPIC RETROGRADE CHOLANGIOPANCREATOGRAPHY, DIAGNOSTIC WITH POSSIBLE BRUSHING OR WASHING AND POSSIBLE MODERATE SEDATION Hx of pancreatitis 04/04/2025 11:55 AM EDT documented as of this encounter Visit Diagnoses Not on filedocumented in this encounter Care Teams Band Bias Machine Operator Relationship Specialty Start Date End Date Tyrell Perry [address] [place] [address] PCP - General 03/11/17 documented as of this encounter
--- OUTSIDE RECORDS SUMMARY | 2025-01-08 11:46 | XMS_ITS | Encounter Summary ---
Author Organization [facility] Address [address] [place] [address] Care Team Providers Care Riveting Machine Operator Tape Control Name Role Phone Tyrell Perry Primary Care Provider [phone] Reason for Visit * Auth/Cert (Routine) Specialty Diagnoses / Procedures Referred By Magdy stearns Referred To Contact Diagnoses Hx of pancreatitis Common bile duct dilation [K83.8] Procedures [place] EDG US EXAM SURGICAL ALTER STOM DUODENUM/JEJUNUM UPPER ENDOSCOPY WITH ENDOSCOPIC ULTRASOUND WITH POSSIBLE MODERATE SEDATION Referral ID Status Reason Start Date Expiration Date Visits Re quested Visits Authorized [id number] [phone] Encounter Details Date Type Department Care Team (Late st Contact Info) Description 01/04/2025 12:30 PM EDT - 01/04/2025 1:20 PM EDT Surgery [facility] Endoscopy [address] [place] [address] J Luis Dalton MD [address] [place] [address] UPPER ENDOSCOPY WITH ENDOSCOPIC ULTRASOUND WITH POSSIBLE MODERATE SEDATION [26359 (CPT??)] Social History Tobacco Use Types Packs/Day Years Used Date Smoking Tobacco: Never Smokeless Tobacco: Never Alcohol Use Standard Drinks/Week Comments Not Currently 0 (1 standard drink = 0.6 oz pur e alcohol) Sex and Gender Information Value Date Recorded Sex Assigned at Male 09/18/2024 4:11 PM EST Legal Sex Male 5:34 AM EDT Gender Identity Male 09/18/2024 4:11 PM EST Sexual Orientation Choose not to disclose 2024 1:34 PM EDT documented as of this encounter Last Filed Vital Signs Vital Sign Reading Time Taken Comments Blood Pressure 102/48 01/04/2025 1:19 PM EDT Pulse 82 01/04/2025 1:19 PM EDT Temperature 36.1 ??C (97 ??F) 01/04/2025 1:19 PM EDT Respiratory Rate 15 01/04/2025 1:19 PM EDT Oxygen Saturation 98% 01/04/2025 1:19 PM EDT Inhaled Oxygen Concentration - - Weight 71.7 kg (158 lb) 01/04/2025 11:23 AM EDT Height 162.6 cm (5' 4 ) 01/04/2025 11:23 AM EDT Body Mass Index 27.12 01/04/2025 11:23 AM EDT documented in this encounter Discharge Instructions * Discharge Instructions* Radha Caldwell RN - 01/04/2025 1:41 PM EDT Post procedure discharge instructions given to Pt. documented in this encounter Medications at Time of Discharge Aimovig Autoinjector 140 mg/mL auto-injector Inject 140 mg under the skin every 30 days. bisacodyL (Laxative, bisacodyl,) 5 mg EC tablet Take 5 mg by mouth daily as needed for constipation. citalopram (CeleXA) 20 mg tablet Take 20 mg by mouth daily. fenofibrate (LOFIBRA) 54 mg tablet Take 54 mg by mouth once a day. FLUoxetine (PROzac) 20 mg capsule SMARTSI Capsule(s) By Mouth Daily 03/30/2024 Linzess 145 mcg capsule SMARTSI Capsule(s) By Mouth Every Morning 10/31/2024 nortriptyline (PAMELOR) 25 mg capsule SMARTSI Capsule(s) By Mouth Every Night omeprazole (PriLOSEC) 40 mg capsule SMARTSI Capsule(s) By Mouth Daily ondansetron (ZOFRAN ODT) 4 mg disintegrating tablet SMARTSI Tablet(s) By Mouth Every 8 Hours PRN oxyCODONE IR (ROXICODONE) 10 mg tablet Take 10 mg by mouth every 6 hours as needed. pancrelipase, qdovvp-fjxihrkt-tliy ase, (Creon) 12,000-38,000 -60,000 unit capsule Take 1 capsule by mouth 3 times a day with meals. pioglitazone (ACTOS) 30 mg tablet SMARTSI Tablet(s) By Mouth Daily rosuvastatin (CRESTOR) 40 mg tablet Take 40 mg by mouth daily. SUMAtriptan (IMITREX) 100 mg tablet Take 50 mg by mouth once as needed. tiZANidine (ZANAFLEX) 4 mg tablet 4 mg every 6 hours as needed for muscle spasms. Trulicity 4.5 mg/0.5 mL injection dose SMARTSI.5 Milligram(s) SUB-Q Once a Week 10/10/2024 vitamin B complex capsule Take 1 capsule by mouth once a day. vitamin D3 25 mcg (1,000 unit) capsule Take 1 capsule by mouth once a day. zolpidem (AMBIEN) 10 mg tablet SMARTSI Tablet(s) By Mouth Every Night PRN documented as of this encounter H&P Notes * J Luis Dalton MD - 01/04/2025 12:42 PM EDT H&P Update: I have reviewed the history and physical and performed a pertinent physical examination on Elvin Hung Koko. No changes have occurred. Elvin Sutherland : 1970 CSN: [id number] Source Note - Preethi Rock NP - 12/21/2024 6:35 AM EDT PREOPERATIVE HISTORY AND PHYSICAL Pre-Surgical Telephone History Physical exam to be done day of surgery (please see completed physical exam at the bottom of this note) Procedure Summary Procedure Summary Date: 01/04/25 Room / Location: [facility] [place] [facility] End[facility] Anesthesia Start: Anesthesia Stop: Procedure: UPPER ENDOSCOPY WITH ENDOSCOPIC ULTRASOUND WITH POSSIBLE MODERATE SEDATION Diagnosis: Hx of pancreatitis (Common bile duct dilation [K83.8]) Surgeons: J Luis Dalton MD Responsible Provider: Anesthesia Type: Not recorded ASA Status: Not recorded Laterality: na Anesthesia Type from Case: Monitor Anesthesia Care The patient was identified using 2 identifiers (name and ). Chief Complaint: I am having an endoscopy HISTORY OF PRESENT ILLNESS: Elvin Sutherland is a 54 y.o. male with a past medical history including ADRIANNA, depression, anxiety, chronic pancreatitis ( last hospitalized in September), t cell lymphoma,and DM. At this time, other than the above, there are no other complaints or concerns. PAST MEDICAL HISTORY: Past Medical History: Diagnosis Date Anxiety Depression GERD (gastroesophageal reflux disease) Headache Hyperlipidemia Kidney stone Lymphoma (HCC) T Cell lymphoma Pancreatitis (HCC) chronic pancreatitis Sleep apnea Type 2 diabetes mellitus (HCC) PAST SURGICAL HISTORY: Past Surgical History: Procedure Laterality Date CERVICAL SPINE SURGERY fusion CHOLECYSTECTOMY 2020 COLONOSCOPY ELBOW SURGERY Bilateral UPPER GI ENDOSCOPY MEDICATIONS: Current Medications as of 12/21/2024 Aimovig Autoinjector 140 mg/mL auto-injector Inject 140 mg under the skin every 30 days. bisacodyL (Laxative, bisacodyl,) 5 mg EC tablet Take 5 mg by mouth daily as needed for constipation. citalopram (CeleXA) 20 mg tablet Take 20 mg by mouth daily. fenofibrate (LOFIBRA) 54 mg tablet Take 54 mg by mouth once a day. FLUoxetine (PROzac) 20 mg capsule SMARTSI Capsule(s) By Mouth Daily Linzess 145 mcg capsule SMARTSI Capsule(s) By Mouth Every Morning nortriptyline (PAMELOR) 25 mg capsule SMARTSI Capsule(s) By Mouth Every Night omeprazole (PriLOSEC) 40 mg capsule SMARTSI Capsule(s) By Mouth Daily ondansetron (ZOFRAN ODT) 4 mg disintegrating tablet SMARTSI Tablet(s) By Mouth Every 8 Hours PRN oxyCODONE IR (ROXICODONE) 10 mg tablet Take 10 mg by mouth every 6 hours as needed. pancrelipase, symmyh-gtxcvykb-vyyucpa, (Creon) 12,000-38,000 -60,000 unit capsule Take 1 capsule bymouth 3 times a day with meals. pioglitazone (ACTOS) 30 mg tablet SMARTSI Tablet(s) By Mouth Daily rosuvastatin (CRESTOR) 40 mg tablet Take 40 mg by mouth daily. SUMAtriptan (IMITREX) 100 mg tablet Take 50 mg by mouth once as needed. tiZANidine (ZANAFLEX) 4 mg tablet 4 mg every 6 hours as needed for muscle spasms. Trulicity 4.5 mg/0.5 mL injection dose SMARTSI.5 Milligram(s) SUB-Q Once a Week vitamin B complex capsule Take 1 capsule by mouth once a day. vitamin D3 25 mcg (1,000 unit) capsule Take 1 capsule by mouth once a day. zolpidem (AMBIEN) 10 mg tablet SMARTSI Tablet(s) By Mouth Every Night PRN ALLERGIES: Allergies Allergen Reactions Famotidine Unknown Famotidine-Ca Carb-Mag Hydrox Gastritis Gabapentin Nausea Ibuprofen Rash Morphine Rash morphine Pregabalin Unknown SOCIAL HISTORY: Social History Tobacco Use Smoking status: Never Smokeless tobacco: Never Substance Use Topics Alcohol use: Not Currently FAMILY HISTORY: Family History Problem Relation Age of Onset Stroke Mother Diabetes Mother Cancer Father REVIEW OF SYSTEMS: Constitutional ROS: negative - fever, fatigue Neurological ROS: negative for - headaches, numbness/tingling, dizziness, weakness Ophthalmic ROS: negative for - blurry vision, decreased vision, glaucoma ENT ROS: negative for - nasal congestion, sore throat, visual changes or vocal changes Respiratory ROS: negative for - cough, orthopnea, shortness of breath, or wheezing Cardiovascular ROS: negative for - chest pain, irregular. heartbeat, murmur, palpitations, pacemaker, defibrillator. Occasional leg edema Gastrointestinal ROS: negative for - vomiting, heartburn. Postive for abdominal pain, nausea and diarrhea. Genito-Urinary ROS: negative for - dysuria, hematuria, incontinence Dermatological ROS: negative for rash, wound Musculoskeletal ROS: negative for - joint pain, joint swelling Hematological and Lymphatic ROS: negative for - bleeding problems, bruising VITALS: to be done AM of procedure PHYSICAL EXAM: to be done AM of procedure LAB: Pertinent lab results include No results found for: COVID19 Lab Results Component Value Date WBC 6.9 11/07/2024 HGB 13.7 11/07/2024 HCT 42.0 11/07/2024 MCV 86.1 11/07/2024 PLT 192 11/07/2024 Lab Results Component Value Date GLUCOSE 113 (H) 11/07/2024 CALCIUM 10.5 11/07/2024 NA 141 11/07/2024 K 3.8 11/07/2024 CO2 21 (L) 11/07/2024 CL 105 11/07/2024 BUN 14 11/07/2024 CREATININE 1.40 (H) 11/07/2024 No results found for: HGBA1C No components found for: LFT No results found for: TSH Lab Results Component Value Date INR 1.1 11/07/2024 IMAGING /OTHER STUDIES: Pertinent results include: Cardiac Imaging 10/09/24 ECG NSR Possible left atrial enlargement Borderline ECG When compared to ECG from 12/10/23 no significant change Confirmed EKG Recent EKGs No resulted procedures found. TTE Prior Echo Procedures No resulted procedures found. NM Stress Test Recent Stress Echocardiogram No resulted procedures found. Cardiac Catheterization Recent Cardiac Cath No resulted procedures found. Other Imaging 10/06/24 CT Abdomen Findings consistent with chronic pancreatitis as described. No CT evidence of acute pancreatitis. Left nephrolithiasis without evidence of ureteral obstruction. 04/11/24 US Abdomen Impression Increased hepatic echogenicity consistent with hepatocellular disease. This most likely represents hepatic steatosis. No focal liver lesion visualized. The IQR to median ratio is less than 15% and the measure of liver stiffness is therefore acceptable. The median shear wave speed is 1.99 m/s. This is between 1.7-2.1 m/s, which is suggestive of compensated advanced chronic liver disease. CONSULTS: Pertinent consults include: Cardiology Pulmonology ANESTHESIA CONSIDERATIONS - Personal problem with anesthesia: No - Family history of anesthesia problems: No - Dental: No problems - Hardware/implants: cervical spine hardware - Activity: patient able to climb a flight of stairs without stopping to catch their breath or having chest pain - STOPBANG: ADRIANNA without CPAP - Blood Products: patient has no druze or cultural beliefs that would prevent blood/blood product transfusion VISIT DIAGNOSIS: No diagnosis found. PSE ORDERS: No orders of the defined types were placed in this encounter. Assessment/Plan: 54 y.o. male who was interviewed via telephone today prior to Procedure(s): UPPER ENDOSCOPY WITH ENDOSCOPIC ULTRASOUND WITH POSSIBLE MODERATE SEDATION on 01/04/2025. 1. Elvin Sutherland was phone screened for the above procedure. This form serves as the history portion of the patient's H&P. The patient will be evaluated by anesthesia and their surgeon on theday of surgery. Vital signs will be obtained in the SACU on the day of surgery. A physical exam will be obtained on the day of surgery by a pre-testing RIBBON CLEANER/PA or the surgeon/designee. The physical exam portion of the H&P will be documented as an addendum to this note, or less commonly as a separate brief progress note. 2. Pre-Op Labs - up to date 3. EKG -up to date 4. DOS Labs- N/A 5. Anticoagulation/Aspirin Plan: na 6. Cardiac: Pharmaceutical Sales: no history of cardiac problems Last visit: N/A Outstanding Cardiac Issues: None 7. Pulmonary: Tafe Teacher: no history of pulmonary problems Last visit: N/A Outstanding Pulmonary Issues: None 8. Pending Items: Preethi Rock NP Pre-Surgical Evaluation Department of Anesthesiology [facility] ----- documented in this encounter Procedure Notes * J Luis Dalton MD - 01/04/2025 12:47 PM EDTAssociated Order(s): ENDOSCOPIC ULTRASOUND [facility] Gastroenterology Patient Name: Elvin Sutherland Procedure Date: 01/04/2025 12:47 PM Date of : 1970 Admit Type: Outpatient Age: 54 Room: [place] [id number] Gender: Male Note Status: Finalized Attending MD: J Luis Dalton , Procedure: Upper EUS Indications: Suspected chronic pancreatitis Comorbidities Providers: J Luis Dalton Referring MD: Requesting Provider: Medicines: Monitored Anesthesia Care Complications: No immediate complications. Estimated Blood Loss: Estimated blood loss: none. Procedure: After obtaining informed consent, the endoscope was passed under direct vision. Throughout the procedure, the patient's blood pressure, pulse, and oxygen saturations were monitored continuously. The Endosonoscope was introduced through the mouth, and advanced to the second part of duodenum. The Endoscope was introduced through the mouth, and advanced to the second part of duodenum. The upper EUS was accomplished without difficulty. The patient tolerated the procedure well. Findings: ENDOSCOPIC FINDING: : The Z-line was regular and was found 40 cm from the incisors. Mild inflammation characterized by congestion (edema) was found in the gastric antrum. Multiple localized 5 mm erosions with stigmata of recent bleeding were found in the gastric fundus. This was biopsied with a cold forceps for histology. The duodenal bulb, first portion of the duodenum and second portion of the duodenum were normal. ENDOSONOGRAPHIC FINDING: : Many hyperechoic foci measuring up to three mm in diameter suggestive of stones were found in the pancreatic head. Pancreatic parenchymal abnormalities were noted in the pancreatic head. These consisted of hyperechoic foci. Visualized portions of the left lobe of the liver, spleen, left adrenal gland and biliary tree were normal on ultrasound examination. Impression: - Z-line regular, 40 cm from the incisors. - Normal stomach. - Normal duodenal bulb, first portion of the duodenum and second portion of the duodenum. - Findings suggestive of pancreatic stones were identified in the pancreatic head. - Pancreatic parenchymal abnormalities consisting of hyperechoic foci were noted in the pancreatic head. - No specimens collected. Recommendation: - Discharge patient to home. - Resume previous diet. - Patient has a contact number available for emergencies. The signs and symptoms of potential delayed complications were discussed with the patient. Return to normal activities tomorrow. Written discharge instructions were provided to the patient. - Resume previous diet. - ERCP in next few months. J Luis Dalton, 01/04/2025 1:32:36 PM This report has been signed electronically. Number of Addenda: 0 Note Initiated On: 01/04/2025 12:47 PM documented in this encounter Plan of Treatment Upcoming Encounters Date Type Department Care Team (Latest Contact Info) Description 03/21/2025 11:00 AM EDT Pre-Admission Testing [facility] [address] [place] [address] [address] [place] [address] 04/04/2025 11:55 AM EDT Hospital Encounter [facility] Operating Room [address] [place] [address] J Luis Dalton MD [address] [place] [id number] 04/04/2025 11:55 AM EDT - 04/04/2025 12:50 PM EDT Surgery [facility] Operating Room [address] [place] [address] J Luis Dalton MD [address] [place] [id number] ENDOSCOPIC RETROGRADE CHOLANGIOPANCREATOG BERNICE, DIAGNOSTIC WITH POSSIBLE BRUSHING OR WASHING AND POSSIBLE MODERATE SEDATION [98977 (CPT??)] Scheduled Procedures Name Priority Associated Diagnoses Date/Ti tx ENDOSCOPIC RETROGRADE CHOLANGIOPANCREATOGRAPHY, DIAGNOSTIC WITH POSSIBLE BRUSHING OR WASHING AND POSSIBLE MODERATE SEDATION Hx of pancreatitis 04/04/2025 11:55 AM EDT documented as of this encounter Procedures * Due to [facility] law, this organization might not be sharing negative HIV tests. Procedure Name Priority Date/Time Associated Diagnosis Comments TISSUE EXAM Routine 01/04/2025 1:01 PM EDT Hx of pancreatitis [place] EDG US EXAM SURGICAL ALTER STOM DUODENUM/JEJUNUM 01/04/2025 12:53 PM EDT Hx of pancreatitis POCT GLUCOSE Routine 01/04/2025 11:09 AM EDT ENDOSCOPIC ULTRASOUND 01/04/2025 documented in this encounter Results * Due to [place] [employer] law, this organization might not be sharing negative HIV tests. * Tissue Exam (01/04/2025 1:01 PM EDT) Final Diagnosis Specimen #1 - Stomach (Antrum), Biopsy: - Partially denuded gastric antral mucosa with minimal chronic inflammation. Specimen #2 - Stomach (Fundus), Biopsy: - Gastric oxyntic mucosa with focal erosion, otherwise unremarkable. [facility] MANUAL 01/05/2025 12:41 PM EDT [facility] at 1241 EDT Clinical History Pre-op diagnosis: Common bile duct dilation [K83.8] [facility] MANUAL 01/05/2025 12:41 PM EDT [facility] Gross Description 1. Stomach, Antrum Received in formalin labeled with the patient's name, date of , MRN, and gastric antrum biopsy are 4 pink-white irregular soft tissue fragments measuring, 0.8 x 0.6 x 0.1 cm in aggregate. The tissue is filtered and submitted in toto in cassette 1A. 2. Stomach, Fundus Received in formalin labeled with the patient's name, date of , MRN, and gastric fundus biopsy are 4 pink-glez irregular soft tissue fragments measuring, 0.8 x 0.6 x 0.1 cm. The tissue is filtered and submitted in toto in cassette 2A. [facility] MANUAL 01/05/2025 12:41 PM EDT [facility] Gross Description User Grossing complete by Cristy Nur on 01/04/2025 4:33 PM [facility] MANUAL 01/05/2025 12:41 PM EDT [facility] Embedded Images [facility] MANUAL 01/05/2025 12:41 PM EDT [facility] Resulting Agency Case was signed out at [facility] CLIA [id number] [facility] MANUAL 01/05/2025 12:41 PM EDT [facility] Report Header Surgical Pathology Report ? Case: [id number] ? Authorizing Provider: ??J Luis Dalton MD ?Collected: ? 01/04/2025 1301 ? Ordering Location: ? [facility] ? Received: ?01/04/2025 1611 ? [place] ? Endoscopy ? Pathologist: ? Compa Mabry MD ? Specimens: ?? 1) - Stomach, Antrum, gastric antrum biopsy ? 2) - Stomach, Fundus, gastric fundus biopsy ? 01/05/2025 12:41 PM EDT [facility] Tissue Gastric fundus structure / Unknown 01/04/2025 1:01 PM EDT 01/04/2025 4:11 PM EDT Comment:Pre-op diagnosis: Common bile duct dilation [K83.8] Tissue specimen (specimen) Gastric fundus structure / Unknown 01/04/2025 1:01 PM EDT 01/04/2025 4:11 PM EDT Comment:Pre-op diagnosis: Common bile duct dilation [K83.8] J Luis Dalton MD LAB PATHOLOGY/CYTOLOGY ORDERABL ES Final Result [facility] [address] [place] [address], [facility] [address] [place] [address], * POCT Glucose, interfaced (01/04/2025 11:09 AM EDT) Glucose, POCT 94 70 - 99 mg/dL 01/04/2025 11:10 AM EDT [facility] Comment: The school business manager has not determined the efficacy of this test in Critically ill patients. ??[facility] defines Critically ill patients for the purpose of blood glucose monitoring (BGM) by glucometer, as patients meeting one or more of the following criteria: Hypotension- non-ICU patients (systolic blood pressure Less than 90 mmHg) due to shock Hypotension -ICU patients ??(Mean Arterial Pressure (MAP) <60 mmHg or systolic blood pressure < 90 mmHg due to shock Patients receiving Vasopressors (phenylephrine, vasopressin or norepinephrine) Anasarca In all locations, BGM test results should not be relied upon in the above situations, unless these results confirmed with lab-based glucose values. Blood 01/04/2025 11:0 9 AM EDT 01/04/2025 11:10 AM EDT us J Luis Dalton MD LAB POCT ORDERABLES - DEVICE Fi nal Result [facility] [address] [place] [address], [place] * ENDOSCOPIC ULTRASOUND (01/04/2025) Narrative Procedure Note J Luis Dalton MD - 01/04/2025 12:47 PM EDT [facility] Gastroenterology Patient Name: Elvin Sutherland Procedure Date: 01/04/2025 12:47 PM Date of : 1970 Admit Type: Outpatient Age: 54 Room: [place] [id number] Gender: Male Note Status: Finalized Attending MD: J Luis Dalton , Procedure: Upper EUS Indications: Suspected chronic pancreatitis Comorbidities Providers: J Luis Dalton Referring MD: Requesting Provider: Medicines: Monitored Anesthesia Care Complications: No immediate complications. Estimated Blood Loss: Estimated blood loss: none. Procedure: After obtaining informed consent, the endoscope was passed under direct vision. Throughout theprocedure, the patient's blood pressure, pulse, and oxygen saturations were monitored continuously. The Endosonoscope was introduced through the mouth, and advanced to the second part of duodenum. TheEndoscope was introduced through the mouth, and advanced tothe second part of duodenum. The upper EUS was accomplished without difficulty. The patienttolerated the procedure well. Findings: ENDOSCOPIC FINDING: : The Z-line was regular and was found 40 cm from the incisors. Mild inflammation characterized by congestion (edema) was found inthe gastric antrum. Multiple localized 5 mm erosions with stigmata of recent bleedingwere found in the gastric fundus. This was biopsied with a cold forcepsfor histology. The duodenal bulb, first portion of the duodenum and second portionof the duodenum were normal. ENDOSONOGRAPHIC FINDING: : Many hyperechoic foci measuring up to three mm in diameter suggestiveof stones were found in the pancreatic head. Pancreatic parenchymal abnormalities were noted in the pancreatichead. These consisted of hyperechoic foci. Visualized portions of the left lobe of the liver, spleen, leftadrenal gland and biliary tree were normal on ultrasound examination. Impression: - Z-line regular, 40 cm from the incisors. - Normal stomach. - Normal duodenal bulb, first portion of theduodenum and second portion of the duodenum. - Findings suggestive of pancreatic stones were identified in the pancreatic head. - Pancreatic parenchymal abnormalities consistingof hyperechoic foci were noted in the pancreatichead. - No specimens collected. Recommendation: - Discharge patient to home. - Resume previous diet. - Patient has a contact number available for emergencies. The signs and symptoms of potential delayed complications were discussed with thepatient. Return to normal activities tomorrow. Written discharge instructions were provided to thepatient. - Resume previous diet. - ERCP in next few months. J Luis Dalton, 01/04/2025 1:32:36 PM This report has been signed electronically. Number of Addenda: 0 Note Initiated On: 01/04/2025 12:47 PM J Luis Dalton MD PROVATION PROCEDURES Final Resu lt documented in this encounter Visit Diagnoses Diagnosis Hx of pancreatitis Hx of pancreatitis Hx of pancreatitis documented in this encounter Administered Medications Inactive Administered Medications - up to 3 most recent administrations Medication Order MAR Action Action Date Dose Rate Site sodium chloride 0.9% flush 3-10 mL 3-10 mL, intravenous, PRN Flush, line care, Flush peripheral line with a minimum of 3 mL, before and after use or every 12 hours., Starting on Rufina 01/04/25 at 1055, Until Rufina 01/04/25 at 1647, Preprocedure (GI) sodium chloride 0.9% flush 3-10 mL 3-10 mL, intravenous, PRN Flush, line care, Flush peripheral line with a minimum of 3 mL, before and after use or every 12 hours., Starting on Rufina 01/04/25 at 1055, Until Rufina 01/04/25 at 1647, Preprocedure (GI) Given 01/04/2025 11:16 AM EDT 10 mL documented in this encounter Active and Recently Administered Medications Times are shown in EDT. PRN Medication Order 01/02/2025 01/03/2025 01/04/2025 sodium chloride 0.9% flush 3-10 mL 3-10 mL, intravenous, PRN Flush, line care, Flush peripheral line with a minimum of 3 mL, before and after use or every 12 hours., Starting on Rufina 01/04/25 at 1055, Until Rufina 01/04/25 at 1647, Preprocedure (GI) sodium chloride 0.9% flush 3-10 mL 3-10 mL, intravenous, PRN Flush, line care, Flush peripheral line with a minimum of 3 mL, before and after use or every 12 hours., Starting on Rufina 01/04/25 at 1055, Until Rufina 01/04/25 at 1647, Preprocedure (GI) 1116 (Given - Provid er: Karena Wong RN) documented in this encounter Care Teams Riveting Machine Operator Tape Control Relationship Specialty Start Date End Date [facility]rell Perry [facility] [place] [address] PCP - General 03/11/17 documented as of this encounter
--- OUTSIDE RECORDS SUMMARY | 2025-01-08 11:46 | XMS_ITS | Encounter Summary ---
Author Organization [facility] Address [address] [place] [address] Care Team Providers Care E Business Manager Name Role Phone Tyrell Perry Primary Care Provider [phone] Reason for Visit * Auth/Cert (Routine) Specialty Diagnoses / Procedures Referred By Magdy stearns Referred To Contact Diagnoses Hx of pancreatitis Common bile duct dilation [K83.8] Procedures [place] EDG US EXAM SURGICAL ALTER STOM DUODENUM/JEJUNUM UPPER ENDOSCOPY WITH ENDOSCOPIC ULTRASOUND WITH POSSIBLE MODERATE SEDATION Referral ID Status Reason Start Date Expiration Date Visits Re quested Visits Authorized [id number] 99 99 Encounter Details Date Type Department Care Team (Latest Contact Info) Description 01/04/2025 10:47 AM EDT - 01/04/2025 2:32 PM EDT Hospital Encounter [facility] Endoscopy [address], [place] [id number] J Luis Dalton MD [address], [place] [id number] Hx of pancreatitis Discharge Disposition: Home or Self Care () Social History Tobacco Use Types Packs/Day Years [...] Sign Reading Time Taken Comments Blood Pressure 101/85 01/04/2025 1:49 PM EDT Pulse 81 01/04/2025 1:49 PM EDT Temperature 36.1 ??C (97 ??F) 01/04/2025 1:19 PM EDT Respiratory Rate 14 01/04/2025 1:49 PM EDT Oxygen Saturation 100% 01/04/2025 1:49 PM EDT Inhaled Oxygen Concentration - - [...] mouth every 6 hours as needed. pancrelipase, silmgt-gzcsysvg-jpay ase, (Creon) 12,000-38,000 -60,000 unit capsule Take [...] have occurred. Elvin Sutherland : 1970 CSN: [id number] Source Note - Preethi Rock NP - 12/21/2024 6:35 AM EDT PREOPERATIVE HISTORY AND PHYSICAL Pre-Surgical Telephone History Physical exam to be done day of surgery (please see completed physical exam at the bottom of this note) Procedure Summary Procedure Summary Date: 01/04/25 Room / Location: [facility] GI [place] V Endo Anesthesia Start: Anesthesia Stop: Procedure: UPPER [...] mouth every 6 hours as needed. pancrelipase, aktfib-znroxgtl-hgnpqji, (Creon) 12,000-38,000 -60,000 unit capsule Take 1 [...] CPAP - Blood Products: patient has no presybeterian or cultural beliefs that would prevent blood/blood product transfusion VISIT DIAGNOSIS: No diagnosis found. PSE ORDERS: No orders of the defined types were placed in this encounter. Assessment/Plan: 54 y.o. male who was interviewed via telephone today prior to Procedure(s): UPPER ENDOSCOPY WITH ENDOSCOPIC ULTRASOUND WITH POSSIBLE MODERATE SEDATION on 01/04/2025. 1Bill Sutherland was phone screened for the above procedure. This form serves as the history portion of the patient's H&P. The patient will be evaluated by anesthesia and their surgeon on theday of surgery. Vital signs will be obtained in the SACU on the day of surgery. A physical exam will be obtained on the day of surgery by a pre-testing ONLINE PROGRAM COORDINATOR/PA or the surgeon/designee. The physical exam portion of the H&P will be documented as an addendum to this note, or less commonly as a separate brief progress note. 2. Pre-Op Labs - up to date 3. EKG -up to date 4. DOS Labs- N/A 5. Anticoagulation/Aspirin Plan: na 6. 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 Pending Items: Preethi Rock NP Pre-Surgical Evaluation Department of Anesthesiology [facility] ----- documented in this encounter Procedure Notes * J Luis Dalton MD - 01/04/2025 12:47 PM EDTAssociated Order(s): ENDOSCOPIC ULTRASOUND [facility] Gastroenterology Patient Name: Elvin Sutherland Procedure Date: 01/04/2025 12:47 PM Date of : 1970 Admit Type: Outpatient Age: 54 Room: [place] [address] Gender: Male Note Status: Finalized Attending MD: [...] Description 03/21/2025 11:00 AM EDT Pre-Admission Testing [facility] [address] [place] [address] [address] [place] [address] 04/04/2025 11:55 AM EDT Hospital Encounter [facility] Operating Room [address] [place] [address] J Luis Dalton MD [address] [place] [address] 04/04/2025 11:55 AM EDT - 04/04/2025 12:50 PM EDT Surgery [facility] Operating Room [address] [place] [address] J Luis Dalton MD [address] [place] [address] ENDOSCOPIC RETROGRADE CHOLANGIOPANCREATOG BERNICE, DIAGNOSTIC WITH POSSIBLE BRUSHING OR WASHING AND POSSIBLE MODERATE SEDATION [00589 (CPT??)] Scheduled Procedures Name Priority Associated Diagnoses Date/Ti me ENDOSCOPIC RETROGRADE CHOLANGIOPANCREATOGRAPHY, DIAGNOSTIC WITH POSSIBLE BRUSHING OR WASHING AND POSSIBLE MODERATE SEDATION Hx of pancreatitis 04/04/2025 11:55 AM EDT documented as of this encounter Procedures * Due to [facility] law, this organization might not be sharing negative HIV tests. Procedure Name Priority Date/Time Associated Diagnosis Comments TISSUE EXAM Routine 01/04/2025 1:01 PM EDT Hx of pancreatitis [place] EDG US EXAM SURGICAL ALTER STOM DUODENUM/JEJUNUM 01/04/2025 12:53 PM EDT Hx of pancreatitis POCT GLUCOSE Routine 01/04/2025 11:09 AM EDT ENDOSCOPIC ULTRASOUND 01/04/2025 documented in this encounter Results * Due to [place] law, this organization might not be sharing negative HIV tests. * Tissue Exam (01/04/2025 1:01 PM EDT) Final Diagnosis Specimen #1 - Stomach (Antrum), Biopsy: - Partially denuded gastric antral mucosa with minimal chronic inflammation. Specimen #2 - Stomach (Fundus), Biopsy: - Gastric oxyntic mucosa with focal erosion, otherwise unremarkable. [facility] MANUAL 01/05/2025 12:41 PM EDT [facility] ANATOMIC PATHOLOGY LABORATORY at 1241 EDT Clinical History Pre-op diagnosis: Common bile duct dilation [K83.8] ASS MANUAL 01/05/2025 12:41 PM EDT [facility] ANATOMIC PATHOLOGY LABORATORY Gross Description 1. [...] and submitted in toto in cassette 2A. [facility] MANUAL 01/05/2025 12:41 PM EDT [facility] ANATOMIC PATHOLOGY LABORATORY Gross Description User Grossing complete by Cristy Nur on 01/04/2025 4:33 PM [facility] MANUAL 01/05/2025 12:41 PM EDT [facility] ANATOMIC PATHOLOGY LABORATORY Embedded Images [facility] MANUAL 01/05/2025 12:41 PM EDT [facility] Doctor Evidence THREE ANATOMIC PATHOLOGY LABORATORY Resulting Agency Case was signed out at [facility] CLIA [id number] [facility] MANUAL 01/05/2025 12:41 PM EDT [facility] Doctor Evidence [facility] ANATOMIC PATHOLOGY LABORATORY Report Header Surgical Pathology Report ? Case: [id number] ? Authorizing Provider: ??J Luis Dalton MD ?Collected: ? 01/04/2025 1301 ? Ordering Location: ? [facility] ? Received: ?01/04/2025 1611 ? [facility] ? Endoscopy ? Pathologist: ? Compa Mabry MD ? Specimens: ?? 1) - Stomach, Antrum, gastric antrum biopsy ? 2) - Stomach, Fundus, gastric fundus biopsy ? 01/05/2025 12:41 PM EDT [facility] ANATOMIC PATHOLOGY LABORATORY Tissue Gastric fundus structure / Unknown 01/04/2025 1:01 PM EDT 01/04/2025 4:11 PM EDT Comment:Pre-op diagnosis: Common bile duct dilation [K83.8] Tissue specimen (specimen) Gastric fundus structure / Unknown 01/04/2025 1:01 PM EDT 01/04/2025 4:11 PM EDT Comment:Pre-op diagnosis: Common bile duct dilation [K83.8] J Luis Dalton MD LAB PATHOLOGY/CYTOLOGY ORDERABL ES Final Result [facility] ANATOMIC PATHOLOGY LABORATORY [address] [place] [address], [facility] ANATOMIC PATHOLOGY LABORATORY [address] [place] [address], * POCT Glucose, interfaced (01/04/2025 11:09 AM EDT) Glucose, POCT 94 70 - 99 mg/dL 01/04/2025 11:10 AM EDT [facility], POC Comment: The anatomy and physiology instructor has not determined the efficacy of this test in Critically ill patients. ??[facility] defines Critically ill patients for the purpose [...] POCT ORDERABLES - DEVICE Fi nal Result [facility], POC [address] [place] [address], [place] * ENDOSCOPIC ULTRASOUND (01/04/2025) Narrative Procedure Note J Luis Dalton MD - 01/04/2025 12:[address] [facility] Gastroenterology Patient Name: Elvin Sutherland Procedure Date: 01/04/2025 12:47 PM Date of : 1970 Admit Type: Outpatient Age: 54 Room: [place] [address] Gender: Male Note Status: Finalized Attending MD: J Luis Dalton , Procedure: Upper EUS Indications: Suspected chronic pancreatitis Comorbidities Providers: J Luis Lopez MD: Requesting Provider: Medicines: Monitored Anesthesia Care [...] Diagnosis Hx of pancreatitis Hx of pancreatitis documented [...] RN) documented in this encounter Care Teams E Business Manager Relationship Specialty Start Date End Date [facility] [place] [address] PCP - General 03/11/17 documented as of this encounter
--- OUTSIDE RECORDS SUMMARY | 2025-01-08 11:46 | XMS_ITS | Encounter Summary ---
Author Organization [facility] Address [address] [place] [address] Care Team Providers Care Milling Machine Operator Name Role Phone Tyrell Perry Primary Care Provider [phone] Reason for Visit * Auth/Cert (Routine) Specialty Diagnoses / Procedures Referred By Magdy stearns Referred To Contact Diagnoses Hx of pancreatitis Common bile duct dilation [K83.8] Procedures [place] EDG US EXAM SURGICAL ALTER STOM DUODENUM/JEJUNUM UPPER ENDOSCOPY WITH ENDOSCOPIC ULTRASOUND WITH POSSIBLE MODERATE SEDATION Referral ID Status Reason Start Date Expiration Date Visits Re quested Visits Authorized [id number] 99 99 Encounter Details Date Type Department Care Team (Late st Contact Info) Description 01/04/2025 12:53 PM EDT Anesthesia Event [facility] Endoscopy [address] [place] [address] Nena Wu MD [address] [place] [id number] Duc Benavidez MD [address] [place] [id number] Anesthesia Record Procedure Summary Procedure Name Responsible Anesthesiologist Anesthesia Start Time Anesthesia Stop Time UPPER ENDOSCOPY WITH ENDOSCOPIC ULTRASOUND WITH POSSIBLE MODERATE SEDATION Nena Wu MD 01/04/25 1253 01/04/25 1318 Events Date Time Event Comment 01/04/2025 1127 1253 An Start 1253 An Start Data 1253 In Room 1259 Proc Start 1259 An Induction The patient was reevaluated immediately before induction of anesthesia. 1300 Anesthesia Ready 1313 Proc Fin 1314 Out of Room 1314 an stop data 1318 Handoff to RN I completed my handoff to the receiving nurse during which we: 1. Identified the patient 2. Identified the responsible provider 3. Reviewed the pertinent medical history 4. Discussed the surgical course 5. Reviewed intra-op anesthesia management and issues during anesthesia 6. Set expectations for post-procedure period 7. Allowed opportunity for questions and acknowledgement of understanding. 1318 An Stop Meds Name Total fentaNYL (SUBLIMAZE) injection 100 mcg propofol (DIPRIVAN) 20ML vial 600 mg lidocaine PF (XYLOCAINE) injection 1% (1 0 mg/mL) 50 mg sodium chloride 0.9% (NS) infusion 0 mL * Agents Name ETO2 (%) Actual Inspired FiO2 (O2%) Set FiO2 (O2%) O2 Flow (L/min) * Blood No blood administrations on file. Lines, Drains, and Airways Type Details Placement Removal Peripheral IV Placement Date: 12/21 01/14; Placement Time: 1115; Catheter Size: 22 G; Orientation: Right, Posterior; Location: Hand; Site Prep: Alcohol, Chlorhexidine; Local Anes: None; Inserted by: Prisca SANCHEZ; Insertion Attempts: 1; Patient Tolerance: Tolerated well; Removal Date: 01/04/25; Removal Time: 1357 01/04/25 1115 by Karena Wong RN 01/04/25 1357 by Radha Caldwell RN documented in this encounter Social History Tobacco Use Types Packs/Day Years [...] Sign Reading Time Taken Comments Blood Pressure 114/70 01/04/2025 1:11 PM EDT Pulse 77 01/04/2025 1:14 PM EDT Temperature - - Respiratory Rate 18 01/04/2025 1:15 PM EDT Oxygen Saturation 97% 01/04/2025 1:15 PM EDT Inhaled Oxygen Concentration - - Weight - - Height - - Body Mass Index - - documented in this encounter OR Notes * Anesthesia Preprocedure Evaluation - Nena Wu MD - 12/21/2024 7:22 AM EDT Images from the original note were not included. Anesthesia Pre-procedure Evaluation Patient: Elvin Sutherland : 1970 Date of Procedure: 01/04/2025 Preoperative Diagnosis: Pre-op Diagnosis * Hx of pancreatitis [Z87.19] UPPER ENDOSCOPY WITH ENDOSCOPIC ULTRASOUND WITH POSSIBLE MODERATE SEDATION: 21937 (CPT??) Surgeon(s): J Luis Dalton MD Past Medical / Past Surgical: Past Medical History: Diagnosis Date Anxiety Depression GERD (gastroesophageal reflux disease) Headache Hyperlipidemia Kidney stone Lymphoma (HCC) T Cell lymphoma Pancreatitis (HCC) chronic pancreatitis Sleep apnea Type 2 diabetes mellitus (HCC) Past Surgical History: Procedure Laterality Date CERVICAL SPINE SURGERY fusion CHOLECYSTECTOMY 2020 COLONOSCOPY ELBOW SURGERY Bilateral UPPER GI ENDOSCOPY Social / Family Histories: Vaping Questions Responses Vaping Use Never User Social History Tobacco Use Smoking status: Never Smokeless tobacco: Never Substance Use Topics Alcohol use: Not Currently Social History Substance and Sexual Activity Drug Use Not Currently Family History Problem Relation Age of Onset Stroke Mother Diabetes Mother Cancer Father Prior to Admission medications Medication Sig Start Date End Date Taking? Authorizing Provider Aimovig Autoinjector 140 mg/mL auto-injector Inject 140 mg under the skin every 30 days. Yes Unknown Provider, bisacodyL (Laxative, bisacodyl,) 5 mg EC tablet Take 5 mg by mouth daily as needed for constipation. Yes Unknown Provider, citalopram (CeleXA) 20 mg tablet Take 20 mg by mouth daily. Yes Unknown Provider, fenofibrate (LOFIBRA) 54 mg tablet Take 54 mg by mouth once a day. Yes Unknown Provider, FLUoxetine (PROzac) 20 mg capsule SMARTSI Capsule(s) By Mouth Daily 03/30/24 Yes Unknown Provider, Linzess 145 mcg capsule SMARTSI Capsule(s) By Mouth Every Morning 10/31/24 Yes Unknown Provider, nortriptyline (PAMELOR) 25 mg capsule SMARTSI Capsule(s) By Mouth Every Night Yes Unknown Provider, omeprazole (PriLOSEC) 40 mg capsule SMARTSI Capsule(s) By Mouth Daily Yes Unknown Provider, ondansetron (ZOFRAN ODT) 4 mg disintegrating tablet SMARTSI Tablet(s) By Mouth Every 8 Hours PRNYes Unknown Provider, oxyCODONE IR (ROXICODONE) 10 mg tablet Take 10 mg by mouth every 6 hours as needed. Yes Unknown Provider, pancrelipase, unypke-qaoalslq-swcihcz, (Creon) 12,000-38,000 -60,000 unit capsule Take 1 capsule bymouth 3 times a day with meals. Yes Unknown Provider, pioglitazone (ACTOS) 30 mg tablet SMARTSI Tablet(s) By Mouth Daily Yes Unknown Provider, rosuvastatin (CRESTOR) 40 mg tablet Take 40 mg by mouth daily. Yes Unknown Provider, sildenafiL (VIAGRA) 50 mg tablet SMARTSI Tablet(s) By Mouth Daily PRN 08/17/24 12/21/24 Unknown Provider, SUMAtriptan (IMITREX) 100 mg tablet Take 50 mg by mouth once as needed. Yes Unknown Provider, tiZANidine (ZANAFLEX) 4 mg tablet 4 mg every 6 hours as needed for muscle spasms. Yes Unknown Provider, Trulicity 4.5 mg/0.5 mL injection dose SMARTSI.5 Milligram(s) SUB-Q Once a Week 10/10/24 Yes Unknown Provider, vitamin B complex capsule Take 1 capsule by mouth once a day. Yes Unknown Provider, vitamin D3 25 mcg (1,000 unit) capsule Take 1 capsule by mouth once a day. Yes Unknown Provider, zolpidem (AMBIEN) 10 mg tablet SMARTSI Tablet(s) By Mouth Every Night PRN Yes Unknown Provider, Allergies: Famotidine, Famotidine-ca carb-mag hydrox, Gabapentin, Ibuprofen, Morphine, and Pregabalin Vitals / Weight: There were no vitals taken for this visit. Recent Labs: Latest Ref Rng & Units 11/07/2024 5:21 PM CBC WBC 3.8 - 10.8 10*3/uL 6.9 Hgb 13.2 - 17.1 g/dL 13.7 Hct 38.5 - 50.0 % 42.0 MCV 80.0 - 100.0 fL 86.1 Plts 140 - 400 10*3/uL 192 Latest Ref Rng & Units 11/07/2024 5:21 PM Basic Metabolic Panel Sodium 135 - 145 mmol/L 141 Potassium 3.5 - 5.3 mmol/L 3.8 Chloride 98 - 107 mmol/L 105 Carbon Dioxide 22 - 32 mmol/L 21 Glucose 65 - 99 mg/dL 113 Creatinine 0.60 - 1.30 mg/dL 1.40 Calcium 8.6 - 10.5 mg/dL 10.5 EGFR >=60 mL/min/1.73m2 60 Recent EKG: Patient's Hospital Problems: There is no problem list on file for this patient. Anesthesia Evaluation Patient summary reviewed and nursing notes reviewed. Anesthesia History: No history of anesthetic complications no previous history of anesthetic complications Pulmonary (+) not an ex-cigarette smoker (-) sleep apnea, smoker Cardiovascular - negative ROS Exercise tolerance: good ROS comment: ECG 09/2024 from [facility]-requested Neuro/Psych (+) migraine psychiatric history, depression, anxiety Comments: S/p cervical spine fusion GI/Hepatic/Renal (+) GERD well controlled, chronic renal disease, kidney stones, pancreatic disease, chronic pancreatitis, bile duct disease, biliary stricture / dilation Comments: Cr=1.4 Endo/Other (+) diabetes mellitus type 2, , cancer Comments: t cell lymphoma Infectious Disease History of Present Illness: PSE chart rev 12/21/24 54 y.o. male with a past medical history including ADRIANNA, depression, anxiety, chronic pancreatitis (last hospitalized in September), t cell lymphoma, and DM. At this time, other than the above, there are no other complaints or concerns. Physical Exam Airway Mallampati: II TM distance: >3 FB Neck ROM: limited Mouth Opening: good Cardiovascular Rhythm: regular Dental - normal exam Pulmonary Breath sounds clear to auscultation Abdominal Anesthesia Plan ASA 3 Anesthesia Type: MAC NPO status verified Use of blood products discussed with patient who consented to blood products. Pre-Anesthesia Review by Attending Anesthesiologist: Nena Wu MD Date: 01/04/2025 Time: 8:35 AM I have interviewed and examined the patient and conducted a pre-anesthesia evaluation that includedreview of the complete medical history, notation of a relevant patient problem list and review of all pertinent preoperative studies, laboratory testing and specialty consultations. An assessment of anesthetic risk including ASA classification and an anesthetic plan have been documented. Original Author: Maria C Crump MD documented in this encounter Plan of Treatment Upcoming Encounters Date Type Department Care Team (Latest Contact Info) Description 03/21/2025 11:00 AM EDT Pre-Admission Testing [facility] [address] [place] [address] [address] [place] [address] 04/04/2025 11:55 AM EDT Hospital Encounter [facility] Operating Room [address] [place] [address] J Luis Dalton MD [address] [place] [address] 04/04/2025 11:55 AM EDT - 04/04/2025 12:50 PM EDT Surgery [facility] Operating Room [address] [place] [address] J Luis Dalton MD [address] [place] [address] ENDOSCOPIC RETROGRADE CHOLANGIOPANCREATOG BERNICE, DIAGNOSTIC WITH POSSIBLE BRUSHING OR WASHING AND POSSIBLE MODERATE SEDATION [11050 (CPT??)] Scheduled Procedures Name Priority Associated Diagnoses Date/Ti mi ENDOSCOPIC RETROGRADE CHOLANGIOPANCREATOGRAPHY, DIAGNOSTIC WITH POSSIBLE BRUSHING OR WASHING AND POSSIBLE MODERATE SEDATION Hx of pancreatitis 04/04/2025 11:55 AM EDT documented as of this encounter Visit Diagnoses Not on filedocumented in this encounter Administered Medications Inactive Administered Medications - up to 3 most recent administrations Medication Order MAR Action Action Date Dose Rate Site fentaNYL (PF) injection epidural, As needed, Starting on Rufina 01/04/25 at 1259, Until Rufina 01/04/25 at 1318, Anesthesia Intra-op Given 01/04/2025 1:04 PM EDT 50 mcg Given 01/04/2025 12:59 PM EDT 50 mcg lidocaine PF (XYLOCAINE) 1% (10 mg/mL) injection infiltration, As needed, Starting on Rufina 01/04/25 at 1256, Until Rufina 01/04/25 at 1318, Anesthesia Intra-op Given 01/04/2025 12:56 PM EDT 50 mg propofoL (DIPRIVAN) injection intravenous, As needed, Starting on Rufina 01/04/25 at 1259, Until Rufina 01/04/25 at 1318, Anesthesia Intra-op Given 01/04/2025 1:10 PM EDT 200 mg Given 01/04/2025 1:06 PM EDT 200 mg Given 01/04/2025 12:59 PM EDT 200 mg sodium chloride 0.9% (NS) premix infusion intravenous, Continuous PRN, Starting on Rufina 01/04/25 at 1253, Until Rufina 01/04/25 at 1318, Anesthesia Intra-op New Bag/Syringe 01/04/2025 12:53 PM EDT documented in this encounter Care Teams Milling Machine Operator Relationship Specialty Start Date End Date Tyrell [facility] [place] [address] PCP - General 03/11/17 documented as of this encounter
--- OUTSIDE RECORDS SUMMARY | 2025-01-08 11:47 | XMS_ITS | Clinical Summary ---
Author Organization [facility] Address [address] [place] [address] Care Team Providers Care Lens Edger Name Role Phone Tyrell Perry Primary Care Provider [phone] Allergies Active Allergy Reactions Criticality Noted Date Comments Famotidine Unknown 01/15/2015 Famotidine-Ca Carb-Mag Hydrox Gastritis 2020 Gabapentin Nausea 03/22/2019 Ibuprofen Rash 03/22/2019 Morphine Rash 12/21/2024 morphine Pregabalin Unknown 03/22/2019 Medications zolpidem (AMBIEN) 10 mg tablet SMARTSI Tablet(s) By Mouth Every Night PRN Active rosuvastatin (CRESTOR) 40 mg tablet Take 40 mg by mouth daily. Active pioglitazone (ACTOS) 30 mg tablet SMARTSI Tablet(s) By Mouth Daily Active ondansetron (ZOFRAN ODT) 4 mg disintegrating tablet SMARTSI Tablet(s) By Mouth Every 8 Hours PRN Active omeprazole (PriLOSEC) 40 mg capsule SMARTSI Capsule(s) By Mouth Daily Active nortriptyline (PAMELOR) 25 mg capsule SMARTSI Capsule(s) By Mouth Every Night Active Linzess 145 mcg capsule SMARTSI Capsule(s) By Mouth Every Morning 11/01/19 25 Active FLUoxetine (PROzac) 20 mg capsule SMARTSI Capsule(s) By Mouth Daily 03/30/20 24 Active Trulicity 4.5 mg/0.5 mL injection dose SMARTSI. 5 Milligram(s ) SUB-Q Once a Week 10/10/19 25 Active citalopram (CeleXA) 20 mg tablet Take 20 mg by mouth daily. Active tiZANidine (ZANAFLEX) 4 mg tablet 4 mg every 6 hours as needed for muscle spasms. Active bisacodyL (Laxative, bisacodyl,) 5 mg EC tablet Take 5 mg by mouth daily as needed for constipatio n. Active vitamin B complex capsule Take 1 capsule by mouth once a day. Active vitamin D3 25 mcg (1,000 unit) capsule Take 1 capsule by mouth once a day. Active Aimovig Autoinjector 140 mg/mL auto-injector Inject 140 mg under the skin every 30 days. Active fenofibrate (LOFIBRA) 54 mg tablet Take 54 mg by mouth once a day. Active pancrelipase, wlphlg-tguyedco-rq ylase, (Creon) 12,000-38,000 -60,000 unit capsule Take 1 capsule by mouth 3 times a day with meals. Active oxyCODONE IR (ROXICODONE) 10 mg tablet Take 10 mg by mouth every 6 hours as needed. Active SUMAtriptan (IMITREX) 100 mg tablet Take 50 mg by mouth once as needed. Active sildenafiL (VIAGRA) 50 mg tablet SMARTSI Tablet(s) By Mouth Daily PRN 08/17/20 24 025 Discontinued Encounters Date Type Department Care Team Description 01/04/2025 12:53 PM EDT Anesthesia Event [facility] Endoscopy [address] [place] [address] Nena Wu MD Vandoros, Jason D., MD 01/04/2025 12:30 PM EDT - 01/04/2025 1:20 PM EDT Surgery [facility] Endoscopy [address] [place] [address] J Luis Dalton MD UPPER ENDOSCOPY WITH ENDOSCOPIC ULTRASOUND WITH POSSIBLE MODERATE SEDATION [25164 (CPT??)] 01/04/2025 10:47 AM EDT - 01/04/2025 2:32 PM EDT Hospital Encounter [facility] Endoscopy [address] [place] [address] J Luis Dalton MD Hx of pancreatitis Discharge Disposition: Home or Self Care () 12/21/2024 7:00 AM EDT Pre-Admission Testing [facility] [address] [facility] [address] [place] [address] Preethi Rock NP 12/08/2024 Prep for Case [facility] [address] [place] [phone] Gem Carver: J Luis Goff MD 12/04/2024 myChart Message [facility] [address] [place] [phone] Gem Carver: Rachael Avitia, LAURA Creon 11/22/2024 Telephone [facility] [address] [place] [phone] Gem Carver: J Luis Goff MD 11/21/2024 Documentation [facility] [address] [place] [phone] Gem Carver: J Luis Goff MD 11/18/2024 Prep for Case [facility] [address] [place] [phone] Gem Carver: J Luis Goff MD 11/08/2024 myChart Message Intial Department [address] [place] [phone] Mychart, Generic Provider Questionnaire Submission 11/07/2024 3:00 PM EDT Office Visit [facility] [address] [place] [phone] Gem Carver: J Luis Goff MD Hx of pancreatitis (Primary Dx); Hypertriglyceridemi a; Diarrhea due to malabsorption from Last 3 Months Family History Medical History Relation Name Comments Cancer Father Diabetes Mother Stroke Mother Relation Name Status Comments Father Mother Social History Tobacco Use Types Packs/Day Years Used Date Smoking Tobacco: Never Smokeless Tobacco: Never Tobacco Cessation:Counseling Given: Not Answered Alcohol Use Standard Drinks/Week Comments Not Currently 0 (1 standard drink = 0.6 oz pur e alcohol) Sex and Gender Information Value Date Recorded Sex Assigned at Male 09/18/2024 4:11 PM EST Legal Sex Male 5:34 AM EDT Gender Identity Male 09/18/2024 4:11 PM EST Sexual Orientation Choose not to disclose 2024 1:34 PM EDT Last Filed Vital Signs Vital Sign Reading [...] Mass Index 27.12 01/04/2025 11:23 AM EDT Plan of Treatment Upcoming Encounters Date Type Department Care Team (Latest Contact Info) Description 03/21/2025 11:00 AM EDT Pre-Admission Testing [facility] [address] [place] [address] [address] [place] [address] 04/04/2025 11:55 AM EDT Hospital Encounter [facility] Operating Room [address] [place] [address] J Luis Dalton MD [address] [place] [phone] 04/04/2025 11:55 AM EDT - 04/04/2025 12:50 PM EDT Surgery [facility] Operating Room [address] [place] [address] J Luis Dalton MD [address] [place] [address] ENDOSCOPIC RETROGRADE CHOLANGIOPANCREATOG BERNICE, DIAGNOSTIC WITH POSSIBLE BRUSHING OR WASHING AND POSSIBLE MODERATE SEDATION [16643 (CPT??)] Scheduled Procedures Name Priority Associated Diagnoses Date/Ti me ENDOSCOPIC RETROGRADE CHOLANGIOPANCREATOGRAPHY, DIAGNOSTIC WITH POSSIBLE BRUSHING OR WASHING AND POSSIBLE MODERATE SEDATION Hx of pancreatitis 04/04/2025 11:55 AM EDT Health Maintenance Due Date Last Done Comments Cologuard 1970 Colon Cancer Screening 1970 Colonoscopy 1972 FOBT / Fit Test 1970 HIV Screening 1970 Hepatitis C Screening 1970 Sigmoidoscopy 1970 Medicare AWV 02/24/1973 Hepatitis B Vaccines (1 of 3 - 19+ 3-dose series) 02/24/1991 Alcohol/Substance Use Screening 08/23/2024 Depression Screening and Follow-Up 08/23/2024 Social Drivers of Health Corrina ual Screening 08/23/2024 DTaP,Tdap,and Td Vaccines (2 - Td or Tdap) 05/09/2034 05/09/2024, 04/22/2023 RSV Vaccine (60+ years old a nd patients) (1 - 1-dose 75+ series) 02/24/2047 Zoster Vaccines Completed 03/17/2023, 01/08/2023 Pneumococcal Vaccine: 50+ Years Completed , 05/23/2020 COVID-19 Vaccine Completed 05/09/2024, 05/2023, 06/24/2022, Additional history exists Influenza Vaccine Completed 05/09/2024, , 06/01/2023, Additional history exists Goals Goal Patient Goal Type Associated Problems Recent Progress Patient-Stated? Author Autogenera luis a Goal Care Plan Autogenerated Problem No Elena Shepard Procedures * Due to [place] state law, this organization might not be sharing negative HIV tests. Procedure Name Priority Date/Time Associated Diagnosis Comments TISSUE EXAM Routine 01/04/2025 1:01 PM EDT Hx of pancreatitis GA EDG US EXAM SURGICAL ALTER STOM DUODENUM/JEJUNUM 01/04/2025 12:53 PM EDT Hx of pancreatitis POCT GLUCOSE Routine 01/04/2025 11:09 AM EDT ENDOSCOPIC ULTRASOUND 01/04/2025 PANCREATIC ELASTASE, STOOL Routine 11/14/2024 2:31 PM EDT Diarrhea due to malabsorption CBC Routine 11/07/2024 5:21 PM EDT Hx of pancreatitis PROTIME-INR Routine 11/07/2024 5:21 PM EDT Hx of pancreatitis IGG 1, 2, 3, AND 4 Routine 11/07/2024 5: 21 PM EDT Hx of pancreatitis LIPID PANEL W/REFLEX TO DIRECT LDL Routine 11/07/2024 5:21 PM EDT Hx of pancreatitis Hypertriglyceridemia BASIC METABOLIC PANEL Routine 11/07/2024 5:21 PM EDT Hx of pancreatitis HEPATIC FUNCTION PANEL Routine 11/07/2024 5:21 PM EDT Hx of pancreatitis VITAMIN A (RETINOL) Routine 11/07/2024 5 :21 PM EDT Hx of pancreatitis VITAMIN E (TOCOPHEROL) Routine 11/07/2024 5:21 PM EDT Hx of pancreatitis VITAMIN D, 25-HYDROXY, TOTAL, IMMUNOASSAY Routine 11/07/2024 5:21 PM EDT Hx of pancreatitis Diarrhea due to malabsorption VITAMIN K Routine 11/07/2024 5:21 PM EDT Hx of pancreatitis AMB EXTERNAL CT HEAD, OUTSIDE RESULT 10/12/[address] ABDOMEN, OUTSIDE RESULT 10/12/2024 from Last 3 Months Results * Due to [place] state law, this organization might not be sharing negative HIV tests. * Tissue Exam (01/04/2025 1:01 PM EDT) Final Diagnosis Specimen #1 - Stomach (Antrum), Biopsy: - Partially denuded gastric antral mucosa with minimal chronic inflammation. Specimen #2 - Stomach (Fundus), Biopsy: - Gastric oxyntic mucosa with focal erosion, otherwise unremarkable. [facility] MANUAL 01/05/2025 12:[address] [facility] ANATOMIC PATHOLOGY LABORAT[facility] at 1241 EDT Clinical History Pre-op diagnosis: Common bile duct dilation [K83.8] [facility] MANUAL 01/05/2025 12:41 PM EDT [facility] ANATOMIC PATHOLOGY LABORATORY Gross Description [...] and submitted in toto in cassette 2A. [facility] MANUAL 01/05/2025 12:41 PM EDT [facility] PATHOLOG[facility] Gross Description User Grossing complete by Cristy Nur on 01/04/2025 4:33 PM [facility] MANUAL 01/05/2025 12:41 PM EDT [facility] ANATOMIC PATHOLOGY LABORATORY Embedded Images [facility] 01/05/2025 12:[address] [facility] AN[facility] LAB[facility] Resulting Agency Case was signed out at [facility] CLIA [id number] [facility] MANUAL 01/05/2025 12:[address] [facility] AN[facility]OM[facility]OLOG[facility] LAB[facility] Report Header Surgical Pathology Report ? Case: [id number] ? Authorizing Provider: ??J Luis Dalton MD ?Collected: ? 01/04/2025 1301 ? Ordering Location: ? [facility] ? Received: ?01/04/2025 1611 ? [facility] ? Endoscopy ? Pathologist: ? Nayana Saritha Mabry MD ? Specimens: ?? 1) - Stomach, Antrum, gastric antrum biopsy ? 2) - Stomach, Fundus, gastric fundus biopsy ? 01/05/2025 12:41 PM EDT [facility] Tissue Gastric fundus structure / Unknown 01/04/2025 1:01 PM EDT 01/04/2025 4:11 PM EDT Comment:Pre-op diagnosis: Common bile duct dilation [K83.8] Tissue specimen (specimen) Gastric fundus structure / Unknown 01/04/2025 1:01 PM EDT 01/04/2025 4:11 PM EDT Comment:Pre-op diagnosis: Common bile duct dilation [K83.8] us J Luis Dalton MD LAB PATHOLOGY/CYTOLOGY ORDERABL ES Final Result Performing Organization Address [facility] Co de Phone Number [employer] [facility] ANATOMIC PATHOLOGY LABORATORY [address] [place] [address], [facility] ANATOMIC PATHOLOGY LABORATORY [address] [place] [address], [place] * POCT Glucose, interfaced (01/04/2025 11:09 AM EDT) [facility] Signature Glucose, POCT 94 70 - 99 mg/dL 01/04/2025 11:10 AM EDT [facility], [facility] Comment: The movement assembly final inspector has not determined the efficacy of this test in Critically ill patients. ?? defines Critically ill patients for the purpose [...] POCT ORDERABLES - DEVICE Fi nal Result Performing Organization Address [facility]/ZIP Co de Phone Number [facility] [address] [place] [address], [place] * ENDOSCOPIC ULTRASOUND (01/04/2025) Narrative Procedure Note J Luis Dalton MD - 01/04/2025 12:47 PM EDT [facility] Gastroenterology Patient Name: Elvin Sutherland Procedure Date: 01/04/2025 12:47 PM Date of : 1970 Admit Type: Outpatient Age: 54 Room: [place] [address] Gender: Male Note Status: Finalized Attending MD: [...] 0 Note Initiated On: 01/04/2025 12:47 PM us J Luis Dalton MD PROVATION PROCEDURES Final Resu lt * (ABNORMAL) Pancreatic Elastase, Stool (11/14/2024 2:31 PM EDT) Pancreatic Elastase-1 12(L) >200 mcg/g 11/20/2024 3:20 PM EDT [facility] Comment: E-1 mcg/g feces ?Interpretation ? <100 ?Severe exocrine pancreatic ? insufficiency ?? 100-200 ? Mild to moderate exocrine ? pancreatic insufficiency ? >200 ?Normal Stool Rectal route / Unknown Non-Blood Collection / Unknown 11/14/2024 2:31 PM EDT 11/14/2024 3:11 PM EDT Narrative LELE TOMPKINS - 11/20/2024 3:20 PM EDT [facility] Received Date:[id number] J Luis Dalton MD LAB BODY FLUIDS AND STOOLS MEAGAN HERNANDEZ Final Result LELE TOMPKINS [address] [facility] 3rd Floor, [place] [address], [place] [phone] [employer] [address], [place] [phone] * (ABNORMAL) Lipid Panel w/Reflex to Direct LDL (11/07/2024 5:21 PM EDT) Cholesterol 119 <=199 mg/dL 11/07/2024 6:22 PM EDT [facility] CL[facility] PATHOLOGY LAB[facility]AT[facility] Triglycerides 117 <=149 mg/dL 11/07/2024 6:22 PM EDT [facility] Cholesterol, HDL 60(H) 40 - 59 mg/dL 11/07/2024 6:22 PM EDT [facility] Cholesterol, Non-HDL 59 mg/dL 11/07/2024 6:22 PM EDT [facility] LDL Cholesterol 36 <100 mg/dL 11/07/2024 6:22 PM EDT [facility] VLDL 23.4 mg/dL 11/07/2024 6:22 PM EDT [facility] Cholesterol/HDL Ratio 2.0 <5.0 11/07/2024 6:22 PM EDT [facility] Blood Structure of peripheral vein / Unknown Venipuncture / Unknown 11/07/2024 5:21 PM EDT 11/07/2024 5:49 PM EDT Narrative [facility] - 11/07/2024 6:22 PM EDT Adult Treatment Panel III Guidelines of NCEP 2001 ? Category: ? Total Cholesterol (mg/dL) ?Desirable ?<200 ?Borderline High ? 200-239 ?High ?>=240 ? Category: ? LDL Cholesterol (mg/dL) ?Optimal ?<100 ?Near Optimal/Above Optimal ?100-129 ?Borderline High ? 130-159 ?High ?160-189 ?Very High ? >=190 ? Category: ? HDL Cholesterol (mg/dL) ?Low ?<40 ?High ?>=60 NCEP's Expert Panel on Blood Cholesterol in Children and Adolescents ? Category: ? Total Cholesterol (mg/dL) ?Desirable ?<170 ?Borderline High ? 170-199 ?High ?>=200 ? Category: ? LDL Cholesterol (mg/dL) ?Desirable ?<110 ?Borderline High ? 110-129 ?High ?>=130 us J Luis Dalton MD LAB BLOOD ORDERABLES Final Resu lt [facility] LAB[facility] [address] [place] [address], * Vitamin A (11/07/2024 5:21 PM EDT) Vitamin A (Retinol) 82 38 - 98 mcg/dL 11/09/2024 1:40 PM EDT LELE LOVINGDeena (PEREZ) Comment: Vitamin supplementation within 24 hours prior to blood draw may affect the accuracy of the results. This test was developed and its analytical performance characteristics have been determined by [facility] [place], [place]. It has not been cleared or approved by the U.S. Food and Drug Administration. This assay has been validated pursuant to the CLIA regulations and is used for clinical purposes. Blood Structure of peripheral vein / Unknown Venipuncture / Unknown 11/07/2024 5:21 PM EDT 11/07/2024 5:45 PM EDT Z[facility] LELE HOGUE (PEREZ) - 11/09/2024 1:40 PM EDT [facility] Received Date:[id number] J Luis Dalton MD LAB BLOOD ORDERABLES Final Resu lt Performing Organization Address [facility] de Phone Number LELE HOGUE [employer]) [address] [place] [address], [place] * (ABNORMAL) Vitamin K (11/07/2024 5:21 PM EDT) [facility] Vitamin K 102(L) 130 - 1500 pg/mL 11/11/2024 6:35 PM EDT LELE VERGARATRINADeena (PEREZ) Comment: This test was developed and its analytical performance characteristics have been determined by [facility] [place], [place]. It has not been cleared or approved by the U.S. Food and Drug Administration. This assay has been validated pursuant to the CLIA regulations and is used for clinical purposes. Blood Structure of peripheral vein / Unknown Venipuncture / Unknown 11/07/2024 5:21 PM EDT 11/07/2024 5:46 PM EDT Zuly LELE HOGUE (PEREZ) - 11/11/2024 6:35 PM EDT [facility] Received Date:[id number] J Luis Dalton MD LAB BLOOD ORDERABLES Final Resu lt LELE HOGUE (CHRIS) [address] [place] [address], [place] * IgG 1, 2, 3, and 4 (11/07/2024 5:21 PM EDT) Immunoglobulin G Subclass 1 617 382 - 929 mg/dL 11/08/2024 1:15 PM EDT [facility] Immunoglobulin G Subclass 2 518 241 - 700 mg/dL 11/08/2024 1:15 PM EDT [facility] Immunoglobulin G Subclass 3 39 22 - 178 mg/dL 11/08/2024 1:15 PM EDT [facility] Immunoglobulin G Subclass 4 72.7 4 - 86 mg/dL 11/08/2024 1:15 PM EDT [employer] [facility] Immunoglobulin G, Serum 1265 600 - 1640 mg/dL 11/08/2024 1:15 PM EDT [facility] Blood Structure of peripheral vein / Unknown Venipuncture / Unknown 11/07/2024 5:21 PM EDT 11/07/2024 5:49 PM EDT Narrative [facility] - 11/08/2024 1:15 PM EDT [facility] Received Date: J Luis Dalton MD LAB BLOOD ORDERABLES Final Resu lt [facility] [address] [facility] 3rd Floor, [place] [address], [employer] [facility] [address] [facility] 3rd Floor, [place] [address], * Vitamin D, 25-Hydroxy, Total, Immunoassay (11/07/2024 5:21 PM EDT) Calcidiol+ercalc idiol 35 30 - 100 ng/mL 11/07/2024 10:39 PM EDT [facility] Comment: Vitamin D Status ? 25-OH Vitamin D: Deficiency: ?<20 ng/mL Insufficiency: ? 20 - 29 ng/mL Optimal: ? > or = 30 ng/mL For 25-OH Vitamin D testing on patients on D2-supplementation and patients for whom quantitation of D2 and D3 fractions is required, the QuestAssureD(TM) 25-OH VIT D, (D2,D3), LC/MS/MS is recommended: order code 47911 (patients >2yrs). See Note 1 Note 1 For additional information, please refer to http://education.Ohmx/faq/QTW402 (This link is being provided for informational/ educational purposes only.) Blood Structure of peripheral vein / Unknown Venipuncture / Unknown 11/07/2024 5:21 PM EDT 11/07/2024 5:49 PM EDT [facility] 11/07/2024 10:39 PM EDT [facility] Received Date: J Luis Dalton MD LAB BLOOD ORDERABLES Final Resu lt [facility] [address] [facility] [address]rd Floor, [place] [address], [place] [phone] [employer] [facility] [address] [facility] 3rd Floor, [place] [address], [place] [phone] * Protime-INR (11/07/2024 5:21 PM EDT) PT 11.6 9.6 - 12.4 Seconds 11/07/2024 6:11 PM EDT [facility] PATH[facility] LAB[facility] INR 1.1 0.9 - 1.1 11/07/2024 6:11 PM EDT [facility] Comment:The optimal therapeu tic INR range for patients treated with Vitamin K antagonists (VKAS, e.g., Warfarin) is 2.0 to 3.5. Discuss the desired range with your doctor/care team. Blood Structure of peripheral vein / Unknown Venipuncture / Unknown 11/07/2024 5:21 PM EDT 11/07/2024 5:49 PM EDT us J Luis Dalton MD LAB BLOOD ORDERABLES Final Resu lt [facility] CL[facility]ICAL PATHOLOGY LABORATORY [address] [place] [address], [place] * CBC (11/07/2024 5:21 PM EDT) WBC 6.9 3.8 - 10.8 10*3/uL 11/07/2024 6:01 PM EDT [facility] PATH[facility] LAB[facility] RBC 4.88 4.20 - 5.80 10*6/uL 11/07/2024 6:01 PM EDT [facility] Hemoglobin 13.7 13.2 - 17.1 g/dL 11/07/2024 6:01 PM EDT [facility] LAB[facility] Hematocrit 42.0 38.5 - 50.0 % 11/07/2024 6:01 PM EDT [employer] [employer] CLINICAL PATHOLOGY LABORATORY MCV 86.1 80.0 - 100.0 fL 11/07/2024 6:01 PM EDT [facility] [employer] CLINICAL PATHOLOGY LABORATORY MCH 28.1 27.0 - 33.0 pg 11/07/2024 6:01 PM EDT [facility] [employer] CLINICAL PATHOLOGY LABORATORY MCHC 32.6 32.0 - 36.0 g/dL 11/07/2024 6:01 PM EDT [facility] PATHOLOG[facility] LAB[facility] RDW 13.5 11.0 - 15.0 % 11/07/2024 6:01 PM EDT [facility] PATH[facility] LAB[facility] Platelets 192 140 - 400 10*3/uL 11/07/2024 6:01 PM EDT [facility] PATHOLOG[facility] LAB[facility]AT[facility] MPV 11/07/2024 6:01 PM EDT [facility] LAB[facility] Comment:Test not performed. Blood Structure of peripheral vein / Unknown Venipuncture / Unknown 11/07/2024 5:21 PM EDT 11/07/2024 5:49 PM EDT J Luis Dalotn MD LAB BLOOD ORDERABLES Final Resu lt [email or web address] LAB[facility] [address] [place] [address], [place] * Vitamin E (Tocopherol) (11/07/2024 5:21 PM EDT) Vitamin E, Alpha Tocopherol 7.2 5.7 - 19.9 mg/L 11/09/2024 1:41 PM EDT LELE HOGUE (CHRIS) Comment: Levels of alpha-tocopherol <5 mg/L are consistent with Vitamin E deficiency in adults. Vitamin E, Beta Gamma Tocopherol <1.0 <=4.3 NA 11/09/2024 1:41 PM EDT LELE ZEPEDA) Comment: Vitamin supplementation within 24 hours prior to blood draw may affect the accuracy of the results. This test was developed and its analytical performance characteristics have been determined by [facility] [place], [place]. It has not been cleared or approved by the U.S. Food and Drug Administration. This assay has been validated pursuant to the CLIA regulations and is used for clinical purposes. Blood Structure of peripheral vein / Unknown Venipuncture / Unknown 11/07/2024 5:21 PM EDT 11/07/2024 5:45 PM EDT Narrative LELE ZEPEDA) - 11/09/2024 1:41 PM EDT [facility] Received Date:[id number] J Luis Dalton MD LAB BLOOD ORDERABLES Final Resu lt LELE ZEPEDA) [address] [place], [place] , [place] * (ABNORMAL) Hepatic function panel (11/07/2024 5:21 PM EDT) Total Protein 8.8(H) 6.0 - 8.0 g/dL 11/07/2024 6:22 PM EDT [facility] CL[facility] PATHOLOG[facility] LABORAT[facility] Albumin 5.0 3.5 - 5.2 g/dL 11/07/2024 6:22 PM EDT [facility] CLINICAL PATHOLOGY LABORATORY Globulin, Total 3.8 2.1 - 4.2 g/dL 11/07/2024 6:22 PM EDT [facility]Me[facility] Personally CLINICAL PATHOLOGY LABORATORY Bilirubin, Total 0.5 0.2 - 1.2 mg/dL 11/07/2024 6:22 PM EDT [employer] Personally CLINICAL PATHOLOGY LABORATORY Bilirubin, Direct 0.2 <=0.4 mg/dL 11/07/2024 6:22 PM EDT [facility] Personally CLINICAL PATHOLOGY LABORATORY Alkaline Phosphatase 59 35 - 129 U/L 11/07/2024 6:22 PM EDT [facility]ITAL[facility]MeSELECT [facility] Personally CLINICAL PATHOLOGY LABORATORY AST 36 10 - 40 U/L 11/07/2024 6:22 PM EDT [employer] [facility] Personally CLINICAL PATHOLOGY LABORATORY ALT 21 10 - 40 U/L 11/07/2024 6:22 PM EDT [employer] [facility] CLINICAL PATHOLOGY LABORATORY Bilirubin, Indirect 0.30 <=0.70 mg/dL 11/07/2024 6:22 PM EDT [employer] [facility] CLINICAL PATHOLOGY LABORATORY A/G Ratio 1.3(L) 1.5 - 3.0 11/07/2024 6:22 PM EDT [employer] [facility] CLINICAL PATHOLOGY LABORATORY Blood Structure of peripheral vein / Unknown Venipuncture / Unknown 11/07/2024 5:21 PM EDT 11/07/2024 5:49 PM EDT us J Luis Dalton MD LAB BLOOD ORDERABLES Final Resu lt [facility] Personally CLINICAL PATHOLOGY LABORATORY [address] [place] [address], * (ABNORMAL) Basic metabolic panel (11/07/2024 5:21 PM EDT) NA 141 135 - 145 mmol/L 11/07/2024 6:22 PM EDT [facility] CL[facility] PATH[facility] LAB[facility] K 3.8 3.5 - 5.3 mmol/L 11/07/2024 6:22 PM EDT [facility] PATH[facility] LAB[facility] Cl 105 98 - 107 mmol/L 11/07/2024 6:22 PM EDT [facility] CO2 21(L) 22 - 32 mmol/L 11/07/2024 6:22 PM EDT [facility] PATHOLOG[facility] LAB[facility] BUN 14 7 - 23 mg/dL 11/07/2024 6:22 PM EDT [facility] PATH[facility] LAB[facility] Creatinine 1.40(H) 0.60 - 1.30 mg/dL 11/07/2024 6:22 PM EDT [employer] [facility] CL[facility]ICAL PATHOLOG[facility] LABORATORY Glucose 113(H) 65 - 99 mg/dL 11/07/2024 6:22 PM EDT [employer] [facility] Calcium 10.5 8.6 - 10.5 mg/dL 11/07/2024 6:22 PM EDT [employer] [facility] Anion Gap 15 5 - 15 11/07/2024 6:22 PM EDT [employer] [facility] LAB[facility] eGFR 60 >=60 mL/min/1 .73m2 11/07/2024 6:22 PM EDT [employer] [facility] PATH[facility] LAB[facility]AT[facility] Comment:The estimated glomer ular filtration rate (eGFR) is calculated using a new formula developed by the NKF-ASN task force to eliminate race-based correction factors. The new formula uses serum/plasma creatinine, age, and gender to determine eGFR. A value below 60mls/min might indicate kidney disease and will be flagged. For additional information, see Resendez et al, Am J Kidney Dis. 2021;79(2):268- 288, A Unifying Approach for GFR estimation: Recommendations of the NKF-ASN Task Force on Reassessing the Inclusion of Race in Diagnosing Kidney Disease . Blood Structure of peripheral vein / Unknown Venipuncture / Unknown 11/07/2024 5:21 PM EDT 11/07/2024 5:49 PM EDT us J Luis Dalton MD LAB BLOOD ORDERABLES Final Resu lt [facility] LAB[facility] [address] [place] [address], [place] * CT Head, Outside Result (10/12/2024) Anatomical Region Laterality Modality Other 10/12/2024 us Onbase Scan Liss[facility] AMB EXTERNAL RESULT PROCEDURE S Final Result * CT Abdomen, Outside Result (10/12/2024) Anatomical Region Laterality Modality Other 10/12/2024 us Onbase Scan Liss[facility] AMB EXTERNAL RESULT PROCEDURE S Final Result from Last 3 Months Additional Health Concerns Active Problems Noted Date Diagnosed Date Autogenerated Problem 01/05/2025 Insurance MEDICARE [facility] Care Teams Lens Edger Relationship Specialty Start Date End Date Tyrell Perry [address] [place] [address] PCP - General 03/11/17
--- OUTSIDE RECORDS SUMMARY | 2025-01-08 11:47 | XMS_ITS | Referral Summary ---
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 Name Role Phone Tyrell Perry Primary Care Provider [phone] Encounters Date Type Department Care Team Description 01/04/2025 12:30 PM EDT - 01/04/2025 1:20 PM EDT Surgery [facility] Endoscopy [address] [place] [address] J Luis Dalton MD UPPER ENDOSCOPY WITH ENDOSCOPIC ULTRASOUND WITH POSSIBLE MODERATE SEDATION [83159 (CPT??)] 01/04/2025 12:53 PM EDT Anesthesia Event [facility] Endoscopy [address] [place] [address] Nena Wu MD Vandoros, Jason D., MD 01/04/2025 10:47 AM EDT - 01/04/2025 2:32 PM EDT Hospital Encounter [facility] Endoscopy [address] [place] [address] J Luis Dalton MD Hx of pancreatitis Discharge Disposition: Home or Self Care () 12/21/2024 7:00 AM EDT Pre-Admission Testing [facility] Pre Surgical Center [address] [facility] 3rd [place] [address] Preethi Rock NP 12/08/2024 Prep for Case [facility] Gastroenterology Clinic [address] [place] [address] Spot Facer: J Luis Goff MD 12/04/2024 myChart Message [facility] Gastroenterology Clinic [address] [place] [address] Spot Facer: Rachael Avitia, LAURA Brown 11/22/2024 Telephone [facility] Gastroenterology Clinic [address] [place] [address] Spot Facer: J Luis Goff MD 11/21/2024 Documentation [facility] Gastroenterology Clinic [address] [place] [address] Spot Facer: J Luis Goff MD 11/18/2024 Prep for Case [facility] Gastroenterology Clinic [address] [place] [address] Spot Facer: J Luis Goff MD 11/08/2024 [employer] Message Intial Department [address] [place] [address] Mychart, Generic Provider Questionnaire Submission 11/07/2024 3:00 PM EDT Office Visit [facility] Gastroenterology Clinic [address] [place] [phone] Spot Facer: J Luis Goff MD Hx of pancreatitis (Primary Dx); Hypertriglyceridemi a; Diarrhea due to malabsorption from Last 3 Months Allergies Active Allergy Reactions Criticality Noted Date [...] by mouth once a day. Active pancrelipase, mnczbg-wkbrgado-cl ylase, (Creon) 12,000-38,000 -60,000 unit capsule Take [...] Mouth Daily PRN 08/17/20 24 025 Discontinued Social History Tobacco Use Types Packs/Day Years [...] Description 03/21/2025 11:00 AM EDT Pre-Admission Testing [facility] Surgical Center [address] [place] [address] 04/04/2025 11:55 AM EDT Hospital Encounter [facility] Operating Room [address] [place] [address] J Luis Dalton MD [address] [place] [address] 04/04/2025 11:55 AM EDT - 04/04/2025 12:50 PM EDT Surgery [facility] Operating Room [address] [place] [address] J Luis Dalton MD [address] [place] [address] ENDOSCOPIC RETROGRADE CHOLANGIOPANCREATOG BERNICE, DIAGNOSTIC WITH POSSIBLE BRUSHING OR WASHING AND POSSIBLE MODERATE SEDATION [30864 (CPT??)] Scheduled Procedures Name Priority Associated Diagnoses Date/Ti wy ENDOSCOPIC RETROGRADE CHOLANGIOPANCREATOGRAPHY, DIAGNOSTIC WITH POSSIBLE BRUSHING OR WASHING AND POSSIBLE MODERATE SEDATION Hx of pancreatitis 04/04/2025 11:55 AM EDT Goals Goal Patient Goal Type Associated Problems Recent Progress Patient-Stated? Author Autogenera luis a Goal Care Plan Autogenerated Problem No Elena Shepard Procedures * Due to [place] state law, this organization might not be sharing negative HIV tests. Procedure Name Priority Date/Time Associated Diagnosis Comments TISSUE EXAM Routine 01/04/2025 1:01 PM EDT Hx of pancreatitis OK EDG US EXAM SURGICAL ALTER STOM DUODENUM/JEJUNUM [...] Last 3 Months Results * Due to [place] state law, this organization might not be sharing negative HIV tests. * Tissue Exam (01/04/2025 1:01 PM EDT) Final Diagnosis Specimen #1 - Stomach (Antrum), Biopsy: - Partially denuded gastric antral mucosa with minimal chronic inflammation. Specimen #2 - Stomach (Fundus), Biopsy: - Gastric oxyntic mucosa with focal erosion, otherwise unremarkable. [facility] MANUAL 01/05/2025 12:41 PM EDT [facility] ANATOMIC PATHOLOGY LABORATORY at 1241 EDT Clinical History Pre-op diagnosis: Common bile duct dilation [K83.8] [facility] MANUAL 01/05/2025 12:41 PM EDT [facility] ANATOMIC PATHOLOGY LABORATORY Gross Description 1. [...] and submitted in toto in cassette 2A. [facility] MANUAL 01/05/2025 12:41 PM EDT [facility] ANATOMIC PATHOLOGY LABORATORY Gross Description User Grossing complete by Cristy Nur on 01/04/2025 4:33 PM [facility] MANUAL 01/05/2025 12:41 PM EDT [facility] ANATOMIC PATHOLOGY LABORATORY Embedded Images [facility] MAN[facility] 01/05/2025 12:[address] [facility] ANATOMIC PATHOLOGY LABORATORY Resulting Agency Case was signed out at [facility] CLIA [id number] [facility] MANUAL 01/05/2025 12:[address] [facility] ANATOMIC PATHOLOGY LABORATORY Report Header Surgical Pathology Report ? Case: [id number] ? Authorizing Provider: ??J Luis Dalton MD ?Collected: ? 01/04/2025 1301 ? Ordering Location: ? [facility] ? Received: ?01/04/2025 1611 ? [facility] ? Endoscopy ? Pathologist: ? Compa Mabry MD ? Specimens: ?? 1) - Stomach, Antrum, gastric antrum biopsy ? 2) - Stomach, Fundus, gastric fundus biopsy ? 01/05/2025 12:41 PM EDT [facility] ANATOMIC PATHOLOGY LABORATORY Tissue Gastric fundus structure / Unknown 01/04/2025 1:01 PM EDT 01/04/2025 4:11 PM EDT Comment:Pre-op diagnosis: Common bile duct dilation [K83.8] Tissue specimen (specimen) Gastric fundus structure / Unknown 01/04/2025 1:01 PM EDT 01/04/2025 4:11 PM EDT Comment:Pre-op diagnosis: Common bile duct dilation [K83.8] J Luis Dalton MD LAB PATHOLOGY/CYTOLOGY ORDERABL ES Final Result [facility] ANATOMIC PATHOLOGY LABORATORY [address] [place] [address] ANATOMIC PATHOLOGY LABORATORY [address] [place] [address], * POCT Glucose, interfaced (01/04/2025 11:09 AM EDT) Glucose, POCT 94 70 - 99 mg/dL 01/04/2025 11:10 AM EDT [facility], POC Comment: The barrel raiser helper has not determined the efficacy of this test in Critically ill patients. ??[facility] defines Critically ill patients for the [...] POCT ORDERABLES - DEVICE Fi nal Result [facility] POC [address] [place] [address], [place] * ENDOSCOPIC ULTRASOUND (01/04/2025) Narrative Procedure Note J Luis Dalton MD - 01/04/2025 12:47 PM EDT [facility] Gastro[facility]ology Patient Name: Elvin Ross Koko Procedure Date: 01/04/2025 12:47 PM Date of : 1970 Admit Type: Outpatient Age: 54 Room: [place] [address] Gender: Male Note Status: Finalized Attending MD: [...] Pancreatic Elastase, Stool (11/14/2024 2:31 PM EDT) Pathologist [facility] Pancreatic Elastase-1 12(L) >200 mcg/g 11/20/2024 3:20 PM EDT [facility] Comment: E-1 mcg/g feces ?Interpretation ? <100 ?Severe exocrine pancreatic ? insufficiency ?? 100-200 ? Mild to moderate exocrine ? pancreatic insufficiency ? >200 ?Normal Stool Rectal route / Unknown Non-Blood Collection / Unknown 11/14/2024 2:31 PM EDT 11/14/2024 3:11 PM EDT Narrative [facility] [place] - 11/20/2024 3:20 PM EDT [facility] Received Date:[id number] J Luis Dalton MD LAB BODY FLUIDS AND STOOLS MEAGAN HERNANDEZ Final Result LELE TOMPKINS [address] [facility] [address] Floor, [place] [address], [place] [phone] [facility] [address] [place] [address], [place] [phone] * (ABNORMAL) Lipid Panel w/Reflex to Direct LDL (11/07/2024 5:21 PM EDT) Pathologist [facility] Cholesterol 119 <=199 mg/dL 11/07/2024 6:22 PM EDT [facility] CL[facility] PATHOLOGY LABORAT[facility] Triglycerides 117 <=149 mg/dL 11/07/2024 6:22 PM EDT [facility] LAB[facility] Cholesterol, HDL 60(H) 40 - 59 mg/dL 11/07/2024 6:22 PM EDT [facility] Cholesterol, Non-HDL 59 mg/dL 11/07/2024 6:22 PM EDT [facility] LDL Cholesterol 36 <100 mg/dL 11/07/2024 6:22 PM EDT [facility] VLDL 23.4 mg/dL 11/07/2024 6:22 PM EDT [facility] Cholesterol/HDL Ratio 2.0 <5.0 11/07/2024 6:22 PM EDT [facility] PATH[facility] LAB[facility] Blood Structure of peripheral vein / Unknown Venipuncture / Unknown 11/07/2024 5:21 PM EDT 11/07/2024 5:49 PM EDT Narrative [facility] CLIN[facility] PATHOLOG[facility] LABORAT[facility] - 11/07/2024 6:22 PM [...] ?<110 ?Borderline High ? 110-129 ?High ?>=130 J Luis Dalton MD LAB BLOOD ORDERABLES Final Resu lt Performing Organization Address [facility] [facility] de Phone Number [employer] CLINICAL PATHOLOGY LABORATORY [address] [place] [address], * Vitamin A (11/07/2024 5:21 PM EDT) Pathologist [facility] Vitamin A (Retinol) 82 38 - 98 mcg/dL 11/09/2024 1:40 PM EDT LELE ZEPEDA) Comment: Vitamin supplementation within 24 hours prior to blood draw may affect the accuracy of the results. This test was developed and its analytical performance characteristics have been determined by [employer] [place], [place]. It has not been cleared or approved by the U.S. Food and Drug Administration. This assay has been validated pursuant to the CLIA regulations and is used for clinical purposes. Blood Structure of peripheral vein / Unknown Venipuncture / Unknown 11/07/2024 5:21 PM EDT 11/07/2024 5:45 PM EDT Narrative LELE ZEPEDA) - 11/09/2024 1:40 PM EDT [facility] Received Date:[id number] J Luis Dalton MD LAB BLOOD ORDERABLES Final Resu lt Performing Organization Address [facility] [facility] de Phone Number LELE ZEPEDA) [address] [place], [place] , [place] * (ABNORMAL) Vitamin K (11/07/2024 5:21 PM EDT) Pathologist [facility] Vitamin K 102(L) 130 - 1500 pg/mL 11/11/2024 6:35 PM EDT LELE ZEPEDA) Comment: This test was developed and its analytical performance characteristics have been determined by [employer] [place], [place]. It has not been cleared or approved by the U.S. Food and Drug Administration. This assay has been validated pursuant to the CLIA regulations and is used for clinical purposes. Blood Structure of peripheral vein / Unknown Venipuncture / Unknown 11/07/2024 5:21 PM EDT 11/07/2024 5:46 PM EDT Narrative LELE ZEPEDA) - 11/11/2024 6:35 PM EDT [facility] Received Date:[id number] us J Luis Dalton MD LAB BLOOD ORDERABLES Final Resu lt LELE ZEPEDA) [address] [place], [place] , [place] * IgG 1, 2, 3, and 4 (11/07/2024 5:21 PM EDT) Pathologist [facility] Immunoglobulin G Subclass 1 617 382 - 929 mg/dL 11/08/2024 1:15 PM EDT [facility] Immunoglobulin G Subclass 2 518 241 - 700 mg/dL 11/08/2024 1:15 PM EDT [facility] Immunoglobulin G Subclass 3 39 22 - 178 mg/dL 11/08/2024 1:15 PM EDT [facility] Immunoglobulin G Subclass 4 72.7 4 - 86 mg/dL 11/08/2024 1:15 PM EDT [facility] Immunoglobulin G, Serum 1265 600 - 1640 mg/dL 11/08/2024 1:15 PM EDT [facility] Blood Structure of peripheral vein / Unknown Venipuncture / Unknown 11/07/2024 5:21 PM EDT 11/07/2024 5:49 PM EDT Narrative LELE TOMPKINS - 11/08/2024 1:15 PM EDT [facility] Received Date:[id number] us J Luis Dalton MD LAB BLOOD ORDERABLES Final Resu lt Performing Organization Address City[facility]/ZIP Co de Phone Number LELE TOMPKINS [address], [place] [address], [facility] [address], [place] [address], * Vitamin D, 25-Hydroxy, Total, Immunoassay (11/07/2024 5:21 PM EDT) Calcidiol+ercalc idiol 35 30 - 100 ng/mL 11/07/2024 10:39 PM EDT [employer] [facility] Comment: Vitamin D Status ? 25-OH Vitamin D: Deficiency: ?<20 ng/mL Insufficiency: ? 20 - 29 ng/mL Optimal: ? > or = 30 ng/mL For 25-OH Vitamin D testing on patients on D2-supplementation and patients for whom quantitation of D2 and D3 fractions is required, the QuestAssureD(TM) 25-OH VIT D, (D2,D3), LC/MS/MS is recommended: order code [id number] (patients >2yrs). See Note 1 Note 1 For additional information, please refer to http://education.[employer]/faq/RBY597 (This link is being provided for informational/ educational purposes only.) Blood Structure of peripheral vein / Unknown Venipuncture / Unknown 11/07/2024 5:21 PM EDT 11/07/2024 5:49 PM EDT Narrative LELE TOMPKINS - 11/07/2024 10:39 PM EDT [facility] Received Date:[id number] J Luis Dalton MD LAB BLOOD ORDERABLES Final Resu lt [facility] TOMPKINS [address] [facility] [address], [place] [address], [facility] [address], [place] [address], * Protime-INR (11/07/2024 5:21 PM EDT) PT 11.6 9.6 - 12.4 Seconds 11/07/2024 6:11 PM EDT [facility] [facility] INR 1.1 0.9 - 1.1 11/07/2024 6:11 PM EDT [facility] [employer] CL[facility] PATHOLOG[facility] LABORATORY Comment:The optimal therapeu tic INR range for patients treated with Vitamin K antagonists (VKAS, e.g., Warfarin) is 2.0 to 3.5. Discuss the desired range with your doctor/care team. Blood Structure of peripheral vein / Unknown Venipuncture / Unknown 11/07/2024 5:21 PM EDT 11/07/2024 5:49 PM EDT us J Luis Dalton MD LAB BLOOD ORDERABLES Final Resu lt [facility] [place] [employer] CLINICAL PATHOLOGY LABORATORY [address] [place] [address], [place] * CBC (11/07/2024 5:21 PM EDT) WBC 6.9 3.8 - 10.8 10*3/uL 11/07/2024 6:01 PM EDT [facility] CLINICAL PATHOLOGY LABORATORY RBC 4.88 4.20 - 5.80 10*6/uL 11/07/2024 6:01 PM EDT [facility] CL[facility]ICAL PATHOLOGY LABORATORY Hemoglobin 13.7 13.2 - 17.1 g/dL 11/07/2024 6:01 PM EDT [facility] CLINICAL PATHOLOGY LABORATORY Hematocrit 42.0 38.5 - 50.0 % 11/07/2024 6:01 PM EDT [facility] [employer] CL[facility]ICAL PATHOLOG[facility] LABORATORY MCV 86.1 80.0 - 100.0 fL 11/07/2024 6:01 PM EDT [facility] MCH 28.1 27.0 - 33.0 pg 11/07/2024 6:01 PM EDT [facility] CLINICAL PATHOLOGY LABORATORY MCHC 32.6 32.0 - 36.0 g/dL 11/07/2024 6:01 PM EDT [facility] CLINICAL PATHOLOGY LABORATORY RDW 13.5 11.0 - 15.0 % 11/07/2024 6:01 PM EDT [facility] CLINICAL PATHOLOGY LABORATORY Platelets 192 140 - 400 10*3/uL 11/07/2024 6:01 PM EDT [facility] CLINICAL PATHOLOGY LABORATORY MPV 11/07/2024 6:01 PM EDT [facility] CLINICAL PATHOLOGY LABORATORY Comment:Test not performed. Blood Structure of peripheral vein / Unknown Venipuncture / Unknown 11/07/2024 5:21 PM EDT 11/07/2024 5:49 PM EDT us J Luis Dalton MD LAB BLOOD ORDERABLES Final Resu lt [facility] CLINICAL PATHOLOGY LABORATORY [address] [place] [address], * Vitamin E (Tocopherol) (11/07/2024 5:21 PM EDT) Vitamin E, Alpha Tocopherol 7.2 5.7 - 19.9 mg/L 11/09/2024 1:41 PM EDT LELE ZEPEDA) Comment: Levels of alpha-tocopherol <5 mg/L are consistent with Vitamin E deficiency in adults. Vitamin E, Beta Gamma Tocopherol <1.0 <=4.3 NA 11/09/2024 1:41 PM EDT LELE ZEPEDA) Comment: Vitamin supplementation within 24 hours prior to blood draw may affect the accuracy of the results. This test was developed and its analytical performance characteristics have been determined by [employer] [place], [place]. It has not been cleared or approved by the U.S. Food and Drug Administration. This assay has been validated pursuant to the CLIA regulations and is used for clinical purposes. Blood Structure of peripheral vein / Unknown Venipuncture / Unknown 11/07/2024 5:21 PM EDT 11/07/2024 5:45 PM EDT Narrative LELE ZEPEDA) - 11/09/2024 1:41 PM EDT [facility] Received Date:[id number] us J Luis Dalton MD LAB BLOOD ORDERABLES Final Resu lt LELE ZEPEDA) [address] [place], [place] , [place] * (ABNORMAL) Hepatic function panel (11/07/2024 5:21 PM EDT) Total Protein 8.8(H) 6.0 - 8.0 g/dL 11/07/2024 6:22 PM EDT [facility] LAB[facility] Albumin 5.0 3.5 - 5.2 g/dL 11/07/2024 6:22 PM EDT [facility] LAB[facility] Globulin, Total 3.8 2.1 - 4.2 g/dL 11/07/2024 6:22 PM EDT [facility] Bilirubin, Total 0.5 0.2 - 1.2 mg/dL 11/07/2024 6:22 PM EDT [facility] Bilirubin, Direct 0.2 <=0.4 mg/dL 11/07/2024 6:22 PM EDT [facility] Alkaline Phosphatase 59 35 - 129 U/L 11/07/2024 6:22 PM EDT [facility] AST 36 10 - 40 U/L 11/07/2024 6:22 PM EDT [facility] ALT 21 10 - 40 U/L 11/07/2024 6:22 PM EDT [facility] Bilirubin, Indirect 0.30 <=0.70 mg/dL 11/07/2024 6:22 PM EDT [facility] A/G Ratio 1.3(L) 1.5 - 3.0 11/07/2024 6:22 PM EDT [facility] Blood Structure of peripheral vein / Unknown Venipuncture / Unknown 11/07/2024 5:21 PM EDT 11/07/2024 5:49 PM EDT us J Luis Dalton MD LAB BLOOD ORDERABLES Final Resu lt [employer] CLINICAL PATHOLOGY LABORATORY [address] [place] [address], * (ABNORMAL) Basic metabolic panel (11/07/2024 5:21 PM EDT) NA 141 135 - 145 mmol/L 11/07/2024 6:22 PM EDT [facility] K 3.8 3.5 - 5.3 mmol/L 11/07/2024 6:22 PM EDT [facility] Cl 105 98 - 107 mmol/L 11/07/2024 6:22 PM EDT [facility] CO2 21(L) 22 - 32 mmol/L 11/07/2024 6:22 PM EDT [facility] BUN 14 7 - 23 mg/dL 11/07/2024 6:22 PM EDT [facility] Creatinine 1.40(H) 0.60 - 1.30 mg/dL 11/07/2024 6:22 PM EDT [facility] Glucose 113(H) 65 - 99 mg/dL 11/07/2024 6:22 PM EDT [facility] Calcium 10.5 8.6 - 10.5 mg/dL 11/07/2024 6:22 PM EDT [facility] Anion Gap 15 5 - 15 11/07/2024 6:22 PM EDT [facility] eGFR 60 >=60 mL/min/1 .73m2 11/07/2024 6:22 PM EDT [facility] [employer] CLINICAL PATHOLOGY LABORATORY Comment:The estimated glomer ular [...] MD LAB BLOOD ORDERABLES Final Resu lt 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
--- OUTSIDE RECORDS SUMMARY | 2025-01-08 11:47 | XMS_ITS | Encounter Summary ---
Author Organization [facility] Address [address] [place] [address] Care Team Providers Care Ranch Hand Supervisor Name Role Phone Tyrell Perry Primary Care Provider [phone] Encounter Details Date Type Department Care Team (Late st Contact Info) Description 11/08/2024 [employer] Message Intial Department [address] [place] [address] Mychart, Generic Provider [address] [place], [place] [id number] Questionnaire Submission Social History Tobacco Use Types Packs/Day Years [...] Description 03/21/2025 11:00 AM EDT Pre-Admission Testing [facility] Pre Surgical Center [address] [facility] [address] [place] [address] 04/04/2025 11:55 AM EDT Hospital Encounter [facility] Operating Room [address] [place] [address] J Luis Dalton MD [address] [place] [address] 04/04/2025 11:55 AM EDT - 04/04/2025 12:50 PM EDT Surgery [facility] Operating Room [address] [place], [place] [id number] J Luis Dalton MD [address] [place], [place] [address] ENDOSCOPIC RETROGRADE CHOLANGIOPANCREATOG BERNICE, DIAGNOSTIC WITH POSSIBLE BRUSHING OR WASHING AND POSSIBLE MODERATE SEDATION [21270 (CPT??)] Scheduled Procedures Name Priority Associated Diagnoses Date/Ti me ENDOSCOPIC RETROGRADE CHOLANGIOPANCREATOGRAPHY, DIAGNOSTIC WITH POSSIBLE BRUSHING OR WASHING AND POSSIBLE MODERATE SEDATION Hx of pancreatitis 04/04/2025 11:55 AM EDT documented as of this encounter Visit Diagnoses Not on filedocumented in this encounter Care Teams Ranch Hand Supervisor Relationship Specialty Start Date End Date yTrell Perry [address] [place] [address] PCP - General 03/11/17 documented as of this encounter
--- NOTE | 2025-01-08 13:03 | MHC.OFFVIS ---
Vital Signs 01/08/25 11:22 Height 5 ft 4 in Weight 154 lb 5.177 oz BMI 26.5 BP 110/73 Blood Pressure Location Lt brachial Position Sitting Pulse 89 Intake Visit Reasons: elevated liver *genetic test results* Allergies gabapentin [GABAPENTIN] Allergy (Mild, Verified 01/08/25 11:23) RASH famotidine [From Pepcid] Allergy (Unknown, Verified 01/08/25 11:23) RASH pregabalin [From LYRICA] Allergy (Unknown, Verified 01/08/25 11:23) VOMITING pantoprazole [From Protonix] Allergy (Verified 01/08/25 11:23) Rash ibuprofen [From Advil] Adverse Reaction (Unknown, Verified 01/08/25 11:23) STOMACH UPSET morphine Adverse Reaction (Verified 01/08/25 11:23) Headache PFSH Medical History Chronic pancreatitis Diabetes Kidney stone Pancreatitis Migraine HTN (hypertension) Depression Surgical History S/P laparoscopic cholecystectomy (02/12/21) History of elbow surgery Hx of endoscopy Hx of colonoscopy H/O neck surgery Social History Household Members: Significant Other Housing: Apartment Do you presently have visiting nurse or other home services: No Alcohol intake: never Patient Tobacco Use Status: Never used Tobacco Second Hand Smoke Exposure: No Advance Directives Date on File: 12/19/20 service: No Current occupational status: disabled Physical Exam Vital Signs: Last Vital Signs Pulse 89 01/08/25 11:22 BP 110/73 01/08/25 11:22 BMI result Body Mass Index 26.5 Assessment & Plan Assessment & Plan (1) Chronic calcific pancreatitis: Code(s): K86.1 - Other chronic pancreatitis Category: Medical Coding Diagnoses Chronic calcific pancreatitis K86.1
== END 2025-01-08 12:04 | disposition home or self-care (01) ==
LOC: HO.HGI 11:00
PROVIDERS: PCP Family Medicine; Visit Provider Internal Medicine Gastroenterology
DX: K86.1 Other chronic pancreatitis (principal)
CPT/HCPCS: 99213

== ENCOUNTER → 2025-01-08 11:00 | Outpatient (BNVA) | payer MEDICARE, MEDICAID, SELFPAY | PROVIDERS: PCP Family Medicine; Visit Provider Internal Medicine Gastroenterology | DX: K86.1 Other chronic pancreatitis (principal) | CPT/HCPCS: 99212 ==

== ENCOUNTER 2025-05-21 09:09 | Outpatient (AMB) | payer MEDICARE, MEDICAID, SELFPAY ==
--- OUTSIDE RECORDS SUMMARY | 2025-05-11 06:28 | XMS_ITS | Encounter Summary ---
Author Organization [facility] Address [address] [facility] [address] [place] [id number] Phone Care Team Providers Care Beater Operator Name Role Phone Tyrell Perry MD Primary Care Provider + [phone] Reason for Visit * Auth/Cert (Routine) Specialty Diagnoses / Procedures Referred By Contac t Referred To Contact Diagnoses Chronic pancreatitis, unspecified pancreatitis type Chronic pancreatitis, unspecified pancreatitis type [K86.1] Procedures [place] ANAST PANCREAS-JEJUNUM/SIDE-SIDE PUESTOW PROCEDURE Referral ID Status Reason Start Date Expiration Date Visits Re quested Visits Authorized [id number] 1 1 Encounter Details Date Type Department Care Team (Latest Contact Info) Description 05/11/2025 6:28 AM EDT - 05/18/2025 4:20 PM EDT Hospital Encounter [address] [phone] Blair Finnegan MD [address] [phone] [email or web address] Discharge Disposition: Home or Self Care Social History Tobacco Use Types Packs/Day Years Used Date Smoking Tobacco: Never Smokeless Tobacco: Never Alcohol Use Standard Drinks/Week Comments Never 0 (1 standard drink = 0.6 oz pur e alcohol) Education Answer Date Recorded Are you interested in more education? Not on frandy e 12/18/2022 Are you concerned about learning? Not on file 12/18/2022 No 12/18/2022 No 12/18/2022 Food Answer Date Recorded Within the past 6 months we worried whether our food would run out before we got money to buy more. Never True 05/12/2025 Within the past 6 months the food we bought just didn't last and we didn't have enough money to get more. Never True Residential Stability Answer Date Recor ded What is your housing situation today? I have mary godoy 05/12/2025 How many times have you move d in the past 12 months? Zero (I did not move) 05/12/2025 Paying for Meds Answer Date Recorded Do you have trouble paying for medicines? No 05/12/2025 Paying Utility Bills Answer Date Record ed Do you have trouble paying your heating or elect ricity bill? No 05/12/2025 Transportation Answer Date Recorded Has the lack of transportati on kept you from medical appointments or from getting medications? No 05/12/2025 Digital Access Answer Date Recorded No 05/12/2025 Yes 05/12/2025 Do you have reliable internet access at home? Ye s 05/12/2025 Do you have a device (e.g., phone, tablet, computer) with a working camera? Yes 05/12/2025 Intimate Partner Violence Answer Date R ecorded Are you denied basic needs s uch as food, clothing, or medical care? No 05/11/2025 In the past 12 months have y ou been in a relationship with a person who hurts, threatens, or tries to control you? No 05/11/2025 Are you denied basic needs s uch as food, clothing, or medical care? No 05/11/2025 In the past 12 months have y ou been in a relationship with a person who hurts, threatens, or tries to control you? No 05/11/2025 Sex and Gender Information Value Date Recorded Sex Assigned at Male 05/13/2025 5:08 PM EDT Legal Sex Male 9:33 PM EDT Gender Identity Male 05/13/2025 5:08 PM EDT Sexual Orientation Straight 05/13/2025 5: 08 PM EDT documented as of this encounter Last Filed Vital Signs Vital Sign Reading Time Taken Comments Blood Pressure 116/73 05/18/2025 10:38 AM EDT Pulse 96 05/18/2025 10:38 AM EDT Temperature 36.1 C (97 F) 05/18/2025 10:38 AM EDT Respiratory Rate 18 05/18/2025 10:38 AM EDT Oxygen Saturation 99% 05/18/2025 10:38 AM EDT Inhaled Oxygen Concentration 2% 05/13/2025 2 :34 PM EDT Weight 71.4 kg (157 lb 8 oz) 05/13/2025 5:06 AM EDT Height 162.6 cm (5' 4 ) 05/11/2025 7:18 AM EDT Body Mass Index 27.03 05/11/2025 7:18 AM EDT documented in this encounter Functional Status * Calculated C-SSRS Risk Score (Lifetime/Recent) Answer Date of Assessment Author No Risk Indicated 05/12/2025 5:00 AM EDT Aby Tian RN * [place] Suicide Severity Rating Scale (Screener/Recent Self-Report) Question Answer Date of Assessment Author 1. Wish to be (Past 1 Month) No 05/12/2025 5:00 AM EDT Aby Tian RN 2. Non-Specific Active Suici duncan Thoughts (Past 1 Month) No 05/12/2025 5:00 AM EDT Aby Tian RN 6. Suicidal Behavior (Lifetime) No 5:00 AM EDT Aby Tian RN documented as of this encounter Discharge Summaries * Marilee Quevedo, HARRIS - 05/18/2025 3:35 PM EDT Images from the original note were not included. Physician Discharge Summary Admit date: 05/11/2025 Discharge date: 05/18/2025 Patient Information Elvin Sutherland, 55 y.o. male ( = 1970) Home [address]: [address] [place] [id number] Home Phone: There is no home phone number on file. Preferred Language: Djiboutian Written Language: Djiboutian Needs Farm Machinery Set Up Mechanic: No Type of Advance Care Directive(s): Health Care Proxy Does patient have a Health Care Proxy form completed?: HCP is available to place in chart Health Care Agents There are no Health Care Agents on file. Code Status at Discharge: Full Code Expected Discharge Disposition: Home or Self Care Patient/Family/Caregiver discharge preference/goals : Home Patient/Family/Caregiver participated and agreed with DC plan: Yes Discharge address same as facesheet: Yes Historical information Reason for Admission: Chronic pancreatitis, unspecified pancreatitis type [K86.1] Principal Problem: Pancreatitis without necrosis or infection Resolved Problems: * No resolved hospital problems. * Principal diagnosis at discharge: Pancreatitis without necrosis or infection Surgical (OR) Procedures: Surgeries this admission Past Procedures (05/11/2025 to Today) Date Procedure/Visit Type Providers 05/11/2025 PUESTOW PROCEDURE Blair Finnegan Staff: Joselyn Self MD, PhD - ResidentNaIon lynn MD, MSc - Anesthesia AttendingCRNAAnesthesia FellowKely Serrano MD - Anesthesia ResidentBlair Finnegan MD - Primary Procedures this admission None Non (OR) Procedures: Items for Post-Hospitalization Follow-Up: Surgical pathology pending at discharge Blood glucose levels were predominantly normal to slightly elevated post operatively. Patient was instructed to wait to resume Pioglitazone once po intake had increased and blood glucose was consistently > 160. He was instructed to hold Trulicity until follow up with Dr Finnegan to encourage adequate oral intake. Pending Results None Hospital Course Elvin Sutherland is a 55 year old gentleman with PMHx of history of diabetes, Hypertriglyceridemia, with recurrent acute pancreatitis leading to chronic pancreatitis with PD obstruction by a stone andmedically refractory pain. He presents today for planned [place]ow procedure. Elvin Sutherland was [facility] on 05/11/2025 and taken to the OR for a lateral pancreaticojejunostomy (Puestow procedure), direct surgical removal of pancreatic duct stones, pancreatoscopy, and lithotripsy of pancreatic duct stones. Intraoperative findings were notable for atrophied pancreatic gland. Palpable duct. Duct opened with cautery, with efflux of clear fluid. Exploration of distal duct with spyglass scope demonstrated a single large pancreatic duct stone which was disrupted with lithotripsy. Estimated blood loss was 50 ml. Please see separately dictated operative note by Blair Finnegan MD for details of this procedure. Postoperatively, patient was extubated and transferred to the PACU, where he remained afebrile and hemodynamically stable. He was transferred to the floor when a bed became available in stable condition with a Rogeroi-Vernon (SUKHDEEP) drain in place. . Initial postoperative pain was managed with IV Tylenol and a Dilaudid/Bupivacaine epidural. This was transitioned to oral analgesia as his diet was advanced with assistance of the Acute Pain service given history of home oxycodone use. At discharge, patient was taking Oxycodone 10-15 mg every 3- 6 hours with Tizanidine 2 mg tid prn. Taper instructions were provided to patient and home prescriber, Dr Alfa Russell was notified of post op pain management plan. The patient was allowed sips of clear liquids on POD#1 and full liquids on POD#2. His diet was advanced slowly, until he was tolerating a soft solid diet on POD#6. SUKHDEEP Amylase was checked and found roro low (14). Drain was removed on POD#3. Blood glucose levels were predominantly normal to slightly elevated post operatively. Patient was instructed to wait to resume Pioglitazone once po intake had increased and blood glucose was consistently > 160. He was instructed to hold Trulicity until follow up with Dr Finnegan to encourage adequate oral intake. By the day of discharge on POD#7 , Mr. Sutherland was ambulating independently, voiding good amounts of urine, and tolerating a soft solid diet with no complaints of nausea/vomiting. PO intake of soft foods was limited, however patient was able to drink multiple Ensure supplements daily. His abdomen was soft and nondistended, with only appropriate incisional tenderness. His surgical wound was clean and dry, with steri-strips intact, and no signs of infection noted. His pain was well controlled on oral pain medication, and he expressed his readiness to be discharged home. Full discharge instructions appended below. Quality Clinical Documentation: Quality Clinical Documentation: Hypomagnesemia (Present on Admission) . Monitoring . Magnesium of 1.2 on 05/12/2025 Anemia due to acute blood loss. Monitoring Medications Allergies: Advil [ibuprofen], Gabapentin, Lyrica [pregabalin], Pepcid [famotidine], and Morphine Prior to Admission Medications Prescriptions AIMOVIG AUTOINJECTOR 140 mg/mL subcutaneous injection Sig: INJECT 1ML DOSE UNDER SKIN ONCE EVERY 28 DAYS SUMAtriptan (IMITREX) 100 MG tablet Sig: Take 100 mg by mouth once as needed for migraine. Not to exceed 200 mg/day TRULICITY 4.5 mg/0.5 mL subcutaneous injection Sig: INJECT ONE DOSE SUBCUTANEOUSLY ONCE A WEEK citalopram (CELEXA) 20 MG tablet Sig: Take 20 mg by mouth daily. Patient not taking: Reported on 05/11/2025 fenofibrate (LOFIBRA) 54 MG tablet Sig: Take 54 mg by mouth 2 (two) times a day. nortriptyline (PAMELOR) 25 MG capsule Sig: Take 75 mg by mouth nightly at bedtime. omeprazole (PRILOSEC) 40 MG capsule Sig: Take 40 mg by mouth daily. ondansetron (ZOFRAN-ODT) 4 MG disintegrating tablet Sig: Take 4 mg by mouth every 8 (eight) hours as needed for nausea. oxyCODONE HCl 10 mg Tab Sig: Take 5 mg by mouth every 6 (six) hours as needed. pancrelipase, cxoalt-fwbanoys-tdxkrfq, (CREON) 36,000-114,000- 180,[address] capsule Sig: Take 2 capsules (72,000 units of lipase total) by mouth 3 (three) times a day with meals. Take1 with snacks pioglitazone (ACTOS) 30 MG tablet Sig: Take 30 mg by mouth daily. Patient not taking: Reported on 05/11/2025 rosuvastatin (CRESTOR) 40 MG tablet Sig: Take 40 mg by mouth daily. tiZANidine (ZANAFLEX) 2 MG tablet Sig: Take 4 mg by mouth 3 (three) times a day. zolpidem (AMBIEN) 10 mg tablet Sig: Take 10 mg by mouth nightly at bedtime as needed for sleep. Facility-Administered Medications: None Medication List PAUSE taking these medications Instructions pioglitazone 30 MG tablet Wait to take this until: May 25, 2025 Resume when your blood glus Commonly known as: ACTOS Take 30 mg by mouth daily. Trulicity 4.5 mg/0.5 mL subcutaneous injection Wait to take this until your doctor or other care provider tells you to start again. Discuss with Dr Finnegan at your follow up if it is ok ava resume (it will depend on your food intake) Generic drug: dulaglutide INJECT ONE DOSE SUBCUTANEOUSLY ONCE A WEEK zolpidem 10 mg tablet Wait to take this until: May 24, 2025 Commonly known as: AMBIEN Take 10 mg by mouth nightly at bedtime as needed for sleep. TAKE these medications Instructions acetaminophen 500 MG tablet Commonly known as: TYLENOL Last time this was given: May 15, 2025 11:08 AM Take 2 tablets (1,000 mg total) by mouth every 8 (eight) hours. - Take every 8 hours for 4 days, then take up to 3 times a day as needed for pain. Aimovig Autoinjector 140 mg/mL subcutaneous injection Generic drug: erenumab-aooe INJECT 1ML DOSE UNDER SKIN ONCE EVERY 28 DAYS docusate sodium 100 MG capsule Commonly known as: COLACE Last time this was given: May 18, 2025 8:29 AM Take 1 capsule (100 mg total) by mouth 2 (two) times a day as needed for mild constipation. Use this medication to prevent constipation while taking pain medication. This medication is available overthe counter. fenofibrate 54 MG tablet Commonly known as: LOFIBRA Take 54 mg by mouth 2 (two) times a day. melatonin 5 mg Tab Last time this was given: May 17, 2025 8:02 PM Take 1 tablet (5 mg total) by mouth nightly at bedtime as needed (insomnia). nortriptyline 25 MG capsule Commonly known as: PAMELOR Last time this was given: May 17, 2025 7:44 PM Take 75 mg by mouth nightly at bedtime. omeprazole 40 MG capsule Commonly known as: PriLOSEC Last time this was given: May 18, 2025 8:27 AM Take 40 mg by mouth daily. ondansetron 4 MG disintegrating tablet Commonly known as: ZOFRAN-ODT Last time this was given: May 15, 2025 9:49 PM Take 4 mg by mouth every 8 (eight) hours as needed for nausea. oxyCODONE HCl 10 mg Tab Last time this was given: May 18, 2025 2:57 PM Partial fill ok. Take 1.5 tabs q 3 hrs prn x 1 day, then 1.5 tabs q 4 hrs prn x 2 days, then 1 tab q 4 hrs prn x 2 days then resume home rx/schedule. What changed: how much to take how to take this when to take this reasons to take this additional instructions Doctor's comments: Partial fill ok. This is for post operative pain. pancrelipase (qunhpm-chqziviu-nymsfnu) 36,000-114,000- 180,[address] capsule Commonly known as: CREON Last time this was given: Ask your nurse or doctor Take 2 capsules (72,000 units of lipase total) by mouth 3 (three) times a day with meals. Take 1 with snacks Doctor's comments: This patient's preferred language is Monegasque. If available, please offer prescription labels in Monegasque. polyethylene glycol 17 gram packet Commonly known as: MIRALAX Last time this was given: May 18, 2025 8:29 AM Take 17 g by mouth daily. Take daily while on increased dose of pain medication. rosuvastatin 40 MG tablet Commonly known as: CRESTOR Last time this was given: May 18, 2025 8:29 AM Take 40 mg by mouth daily. simethicone 80 mg chewable tablet Commonly known as: MYLICON Take 1 tablet (80 mg total) by mouth every 6 (six) hours as needed (gas pains). SUMAtriptan 100 MG tablet Commonly known as: IMITREX Take 100 mg by mouth once as needed for migraine. Not to exceed 200 mg/day tiZANidine 2 MG tablet Commonly known as: ZANAFLEX Last time this was given: May 17, 2025 10:03 AM Take 4 mg by mouth 3 (three) times a day. ASK your doctor about these medications Instructions citalopram 20 MG tablet Commonly known as: CeleXA Take 20 mg by mouth daily. Where to Get Your Medications These medications were sent to [facility]/pharmacy #[id number] - [place] - [address] [facility] [place] [address] Hours: 24-hours oxyCODONE HCl 10 mg Tab You can get these medications from any pharmacy You don't need a prescription for these medications docusate sodium 100 MG capsule melatonin 5 mg Tab polyethylene glycol 17 gram packet simethicone 80 mg chewable tablet Information about where to get these medications is not yet available Ask your nurse or doctor about these medications acetaminophen 500 MG tablet Hospital Care Team Service: Surgery Inpatient Attending: Blair Finnegan MD Attending phys phone: Discharge Unit: [facility] Primary Care Physician: Tyrell Perry MD [phone] Transitional Plan Scheduled appointments: Scheduled Appointments (maximum listed = 10) Provider Department Dept Phone Center Visit Type 06/18/2025 11:15 AM (Arrive by 11:00 AM) Blair Finnegan MD [facility] General & Gastrointestinal Surgery [phone] [facility] Main Post Op Visit 10/31/2025 10:00 AM Sandip Callejas PA-C [facility] [phone] [facility] Main Follow Up Signed Discharge Orders (From admission, onward) Ordered 05/18/251512 Lifting: No more than 5 lbs Comments: to prevent incisional hernia Question: Lifting Answer: No more than 5 lbs 05/18/251512 Bathing: Shower Comments: You may shower, just pat your incision dry. If it is draining clear fluid, you can cover it with a dry dressing. Avoid baths and swimming for several weeks to prevent infection Question: Bathing Answer: Shower 05/18/251512 No Driving: No driving while taking narcotics Question: No Driving Answer: No driving while taking narcotics 05/18/251512 Other, please specify Comments: - Due to the location of your surgery, do NOT use suppositories or enemas for constipation, and do not take any medication by rectum. - Do not be alarmed if you notice some blood in your first few bowel movements. 05/18/251512 No dressing needed Comments: Leave the Steri-strips on your incision-if they have not fallen off in 10-14 days you mayremove them yourself 05/18/251512 For immediate questions regarding your hospitalization, your medications, and any pending test results please contact your doctor in the hospital: Blair Finnegan MD at . Comments: For immediate questions regarding your hospitalization, your medications, and any pendingtest results please contact your doctor in the hospital: Blair Finnegan MD at [phone]. 05/18/251512 Discharge diet Comments: - You should eat a diet of soft textured foods. This includes things like yogurt and milkshakes as well as soft, mushy foods like scrambled eggs, mashed potatoes, rice, white flakey fish and well cooked pasta. Avoid carbonated beverages, all green leafy vegetables and red meats. After a week on this diet, you can begin to resume a regular diet. If you experience increased nausea or bloating, restrict yourself to a liquid diet until these symptoms resolve. - Be sure to drink plenty of liquids (at least 40-48 ounces per day); Gatorade, Smart Water, or other sports drinks are good options. You will know you are drinking adequate amounts of fluid if your urine is light yellow in color. If your urine becomes darker, or brighter, yellow, this indicates that you should increase the amount of fluid you are drinking. - Drink 1 ensure plus 2-3 times daily until you are eating more solid food. Question: Diet type Answer: Other Discharge instructions and important events and results GENERAL INSTRUCTIONS: - Attend all recommended follow up appointments. - Do not participate in strenous physical activity such as heavy lifting (nothing heavier than 10lbs) or sports until you have seen your surgeon for a follow-up appointment. You are, however, encouraged to walk. - It is normal to feel tired after surgery, but it is very important to walk as many times a day asyou are capable. Try not to be in bed unless you are settling down for sleep; rest upright in a chair or on the couch to encourage deep breathing the rest of the time when you are not up and about. - It is fine to climb stairs as often as your feel capable. - Do not drive until you are no longer taking any prescription pain medication, feeling well and alert, and are able to wear a seatbelt and turn to look over both shoulders without discomfort. MEDICATIONS - Resume your pre-hospital medications EXCEPT: Do not resume Trulicity. This medication sows the emptying of your stomach and we want your appetite to improve. Discuss restarting this with Dr Finnegan at your follow up appointment. Do not resume Pioglitazone until you are eating more and your blood glucose is > 160 on a consistent basis. Do not take Ambien while taking more than your usual home dose of Oxycodone. - You should follow-up with your primary care physician regarding new prescriptions and refills. NEW MEDICATION - You were given Melatonin 5 mg for sleep while you were here. You can continue to take this medication at home if you like. It is available over the counter. Pain Medication: OXYCODONE WEAN GUIDELINES: -Take 1.5 (one and a half) tablets of Oxycodone 10 mg tab every 3 hours as needed x 1 day, - then take 1.5 tablets every 4 hours as needed for 2 days - then take 1 tablet every 4 hours as needed for 2 days - then resume home schedule of 1 tablet every 6 hours as needed You have 28 tablets from your home supply of Oxycodone 10 that you did not use while in the hospital and should now use as part of your post operative pain med taper. We are providing you with a prescription of 16 tablets of Oxycodone 10 to fulfill your pain medication taper. When you have finishedyour taper, resume your home medication supply. We have contacted your pain medication provider with our taper plan and prescription information. - Over the next week please wean down the amount of pain medication you are taking, with the goal of using only Tylenol (maximum 3000 mg per day). - To minimize the use of narcotic pain mediation, take Tylenol on a scheduled basis for 4-5 days (1000mg every 8 hours). As your pain decreases, you should stop taking narcotic pain medication and use Tylenol as needed. - In order to avoid constipation, be sure to take your home stool softener Colace and Miralax, if needed, if you are taking pain medication. If you feel you are experiencing ongoing constipation, youmay take a Dulcolax suppository, or you may use Metamucil or a laxative such as Senna tablets. DIET - You should eat a diet of soft textured foods. This includes things like yogurt and milkshakes as well as soft, mushy foods like scrambled eggs, mashed potatoes, rice, white flakey fish and well cooked pasta. Avoid carbonated beverages, all green leafy vegetables and red meats. After a week on this diet, you can begin to resume a regular diet. If you experience increased nausea or bloating, restrict yourself to a liquid diet until these symptoms resolve. - Be sure to drink plenty of liquids (at least 40-48 ounces per day); Gatorade, Smart Water, or other sports drinks are good options. You will know you are drinking adequate amounts of fluid if your urine is light yellow in color. If your urine becomes darker yellow, this indicates that you should increase the amount of fluid you are drinking. OTHER - Do not be alarmed if you notice some blood in your first few bowel movements. - If you have judith, these will be removed at your follow up visit. - Leave the Steri-strips on your incision-if they have not fallen off in 10-14 days you may remove them yourself - If you are having frequent, loose stools (>5-6 daily), and have not already been started on Metamucil before leaviing the hospital, start taking 1 dose of Metamucil daily. If symptoms do not improve or only moderately improve, increase Metamucil to 2 doses daily. If symptoms continue, call Dr Ortiz's office for further guidance. - It is ok to shower with your usual soap. Let the water run over your incision and pat dry. No tubs or swimming for 3 weeks. Exam Temperature: 36.1 ??C (97 ??F) (05/18/25 1038) Heart Rate: 96 (05/18/25 1038) BP: 116/73 (05/18/25 1038) Respiratory Rate: 18 (05/18/25 1038) SpO2: 99 % (05/18/25 1038) O2 Device: None (Room air) (05/18/25 1038) O2 Flow Rate (L/min): 2 FiO2 (%): (!) 2 % (05/13/25 1434) Weight: 71.4 kg (157 lb 8 oz) (05/13/25 0506) Height: 162.6 cm (5' 4 ) (05/11/25 0718) BMI (Calculated): 25.73 (05/11/25 0718) Discharge Exam Significant Discharge Exam Findings: See hospital course Disability Identity and Disability Accommodations Comments Disability Identity No Data/Results Results are shown for the following tests if performed (CBC, Chem 7, Mg, Coag). If the patient did not have any of these tests, no results will be shown here. Lab Results Component Value Date/Time WBC 5.16 05/17/2025 0510 RBC 3.85 (L) 05/17/2025 0510 HGB 10.8 (L) 05/17/2025 0510 HCT 32.6 (L) 05/17/2025 0510 MCH 28.1 05/17/2025 0510 MCV 84.7 05/17/2025 0510 PLT 224 05/17/2025 0510 RDW 13.3 05/17/2025 0510 Lab Results Component Value Date/Time NA 142 05/17/2025 0510 K 3.4 05/17/2025 0510 CL 106 05/17/2025 0510 CO2 24 05/17/2025 0510 BUN 8 05/17/2025 0510 CRE 0.80 05/17/2025 0510 CA 9.2 05/17/2025 0510 GLU 110 05/17/2025 0510 GLUPOC 208 (H) 05/18/2025 1040 Lab Results Component Value Date/Time MG 1.7 05/17/2025 0510 Cosigned by Blair Finnegan MD at 05/18/2025 3:37 PM EDT Associated attestation - Blair Finnegan MD - 05/18/2025 3:37 PM EDT Attending Attestation/Addendum I saw and examined the patient and agree with the assessment and plan as described above. Blair Finnegan MD #[id number] documented in this encounter Discharge Instructions * Discharge Instructions* Marilee Quevedo CNP - 05/14/2025 12:59 PM EDT GENERAL INSTRUCTIONS: - Attend all recommended follow up appointments. - Do not participate in strenous physical activity such as heavy lifting (nothing heavier than 10lbs) or sports until you have seen your surgeon for a follow-up appointment. You are, however, encouraged to walk. - It is normal to feel tired after surgery, but it is very important to walk as many times a day asyou are capable. Try not to be in bed unless you are settling down for sleep; rest upright in a chair or on the couch to encourage deep breathing the rest of the time when you are not up and about. - It is fine to climb stairs as often as your feel capable. - Do not drive until you are no longer taking any prescription pain medication, feeling well and alert, and are able to wear a seatbelt and turn to look over both shoulders without discomfort. MEDICATIONS - Resume your pre-hospital medications EXCEPT: Do not resume Trulicity. This medication sows the emptying of your stomach and we want your appetite to improve. Discuss restarting this with Dr Finnegan at your follow up appointment. Do not resume Pioglitazone until you are eating more and your blood glucose is > 160 on a consistent basis. Do not take Ambien while taking more than your usual home dose of Oxycodone. - You should follow-up with your primary care physician regarding new prescriptions and refills. NEW MEDICATION - You were given Melatonin 5 mg for sleep while you were here. You can continue to take this medication at home if you like. It is available over the counter. Pain Medication: OXYCODONE WEAN GUIDELINES: -Take 1.5 (one and a half) tablets of Oxycodone 10 mg tab every 3 hours as needed x 1 day, - then take 1.5 tablets every 4 hours as needed for 2 days - then take 1 tablet every 4 hours as needed for 2 days - then resume home schedule of 1 tablet every 6 hours as needed You have 28 tablets from your home supply of Oxycodone 10 that you did not use while in the hospital and should now use as part of your post operative pain med taper. We are providing you with a prescription of 16 tablets of Oxycodone 10 to fulfill your pain medication taper. When you have finishedyour taper, resume your home medication supply. We have contacted your pain medication provider with our taper plan and prescription information. - Over the next week please wean down the amount of pain medication you are taking, with the goal of using only Tylenol (maximum 3000 mg per day). - To minimize the use of narcotic pain mediation, take Tylenol on a scheduled basis for 4-5 days (1000mg every 8 hours). As your pain decreases, you should stop taking narcotic pain medication and use Tylenol as needed. - In order to avoid constipation, be sure to take your home stool softener Colace and Miralax, if needed, if you are taking pain medication. If you feel you are experiencing ongoing constipation, youmay take a Dulcolax suppository, or you may use Metamucil or a laxative such as Senna tablets. DIET - You should eat a diet of soft textured foods. This includes things like yogurt and milkshakes as well as soft, mushy foods like scrambled eggs, mashed potatoes, rice, white flakey fish and well cooked pasta. Avoid carbonated beverages, all green leafy vegetables and red meats. After a week on this diet, you can begin to resume a regular diet. If you experience increased nausea or bloating, restrict yourself to a liquid diet until these symptoms resolve. - Be sure to drink plenty of liquids (at least 40-48 ounces per day); Gatorade, Smart Water, or other sports drinks are good options. You will know you are drinking adequate amounts of fluid if your urine is light yellow in color. If your urine becomes darker yellow, this indicates that you should increase the amount of fluid you are drinking. OTHER - Do not be alarmed if you notice some blood in your first few bowel movements. - If you have judith, these will be removed at your follow up visit. - Leave the Steri-strips on your incision-if they have not fallen off in 10-14 days you may remove them yourself - If you are having frequent, loose stools (>5-6 daily), and have not already been started on Metamucil before leaviing the hospital, start taking 1 dose of Metamucil daily. If symptoms do not improve or only moderately improve, increase Metamucil to 2 doses daily. If symptoms continue, call Dr Ortiz's office for further guidance. - It is ok to shower with your usual soap. Let the water run over your incision and pat dry. No tubs or swimming for 3 weeks. * Provider Post Hospital Follow Ups* Marilee Quevedo CNP - 05/14/2025 1:04 PM EDT Surgical pathology pending at discharge Blood glucose levels were predominantly normal to slightly elevated post operatively. Patient was instructed to wait to resume Pioglitazone once po intake had increased and blood glucose was consistently > 160. He was instructed to hold Trulicity until follow up with Dr Finnegan to encourage adequate oral intake. documented in this encounter Medications at Time of Discharge acetaminophen (TYLENOL) 500 MG tablet Take 2 tablets (1,000 mg total) by mouth every 8 (eight) hours. - Take every 8 hours for 4 days, then take up to 3 times a day as needed for pain. 5 AIMOVIG AUTOINJECTOR 140 mg/mL subcutaneous injection INJECT 1ML DOSE UNDER SKIN ONCE EVERY 28 DAYS citalopram (CELEXA) 20 MG tablet Take 20 mg by mouth daily. docusate sodium (COLACE) 100 MG capsule Take 1 capsule (100 mg total) by mouth 2 (two) times a day as needed for mild constipation. Use this medication to prevent constipation while taking pain medication. This medication is available over the counter. 5 fenofibrate (LOFIBRA) 54 MG tablet Take 54 mg by mouth 2 (two) times a day. melatonin 5 mg Tab Take 1 tablet (5 mg total) by mouth nightly at bedtime as needed (insomnia). 5 nortriptyline (PAMELOR) 25 MG capsule Take 75 mg by mouth nightly at bedtime. omeprazole (PRILOSEC) 40 MG capsule Take 40 mg by mouth daily. ondansetron (ZOFRAN-ODT) 4 MG disintegrating tablet Take 4 mg by mouth every 8 (eight) hours as needed for nausea. oxyCODONE 10 mg Tab Partial fill ok. Take 1.5 tabs q 3 hrs prn x 1 day, then 1.5 tabs q 4 hrs prn x 2 days, then 1 tab q 4 hrs prn x 2 days then resume home rx/schedule. 16 tablet 5 pancrelipase, sypyra-xwtihgdy-zhl lasvicki, (CREON) 36,000-114,000- 180,[address] capsule Take 2 capsules (72,000 units of lipase total) by mouth 3 (three) times a day with meals. Take 1 with snacks 240 capsule 5 5 pioglitazone (ACTOS) 30 MG tablet Take 30 mg by mouth daily. polyethylene glycol (MIRALAX) 17 gram packet Take 17 g by mouth daily. Take daily while on increased dose of pain medication. 5 rosuvastatin (CRESTOR) 40 MG tablet Take 40 mg by mouth daily. simethicone (MYLICON) 80 mg chewable tablet Take 1 tablet (80 mg total) by mouth every 6 (six) hours as needed (gas pains). 5 SUMAtriptan (IMITREX) 100 MG tablet Take 100 mg by mouth once as needed for migraine. Not to exceed 200 mg/day tiZANidine (ZANAFLEX) 2 MG tablet Take 4 mg by mouth 3 (three) times a day. TRULICITY 4.5 mg/0.5 mL subcutaneous injection INJECT ONE DOSE SUBCUTANEOUSLY ONCE A WEEK zolpidem (AMBIEN) 10 mg tablet Take 10 mg by mouth nightly at bedtime as needed for sleep. documented as of this encounter Progress Notes Only the most recent of 25 notes is shown. * Tariq Smith, LAURA - 05/18/2025 3:03 PM EDT Nursing Note 55M with recurrent acute pancreatitis leading to chronic pancreatitis with PD obstruction by a stone and medically refractory pain s/p Puestow procedure (05/11/25, [place]) Hx of chronic pain (neck and back) with opioid use, DM2, hypertriglycerides. Neuro: AxOx3. CAM negative. Pleasant and cooperative with care. ID: Afebrile. WBCs 5.16 (3.90). Pain: 8-10/10 pain to abdomen. PO 15mg Oxycodone available q 3hr given with good effect. Heating pad to abd with good effect. Refusing PO Tylenol d/t GI upset. Pt has history of opioid use at home d/t chronic pain, APS following. CV/Resp: Bps 100s-120s/60s-70s. HR 70s-80s. LS clear bilaterally, diminished in the bases. O2 > 95% on RA. GI/: PSS- tolerating well. Denies N&V or fullness, reports some bloating. FS ACHS. Voiding adequate amts CYU Ind in BR. Abd slightly distended, soft. +BS, +flatus this shift. No Bm this shift, 2 BMs yesterday. Skin: MLI TOBACCO SWEEPER with steri strips. SUKHDEEP d/rachel, site to [facility] D&I. Mobility: OOB independent, gait slow steady. Ambulating halls frequently on days. Plan: d/c home with no services documented in this encounter H&P Notes * Joselyn Self MD, PhD - 05/11/2025 12:04 PM EDT H&P reviewed. The patient was examined and there are no changes to the H&P. We will proceed with a Puestow procedure today. The patient is in agreement. Joselyn Self MD, PhD General Surgery Resident, PGY5 [facility] [id number] Source Note - Blair Finnegan MD - 04/26/2025 8:00 AM EDT Elvin Sutherland is a 55 y.o. male seen for an evaluation of recurrent acute pancreatitis. HPI: He has a history of diabetes, Hypertriglyceridemia, pancreatitis and chronic back pain. Per Dr. Ding's note on 03/20/2025, his initial episode of pancreatitis was about 10 years. Trigycerides were elevated to 800s. He has been hospitalized ~1 time per year with acute pancreatitis. During each episode they report that his triglycerides have been ~800-1000. He does not know what his lipase level has been. He does not recall being treated with an insulin drip or admitted to the ICU.In between episodes his triglycerides are ~200-300. He had an IgG4 - 55.6 and has no cholelithiasis. He noted a discrete worsening of his abdominal pain frequency and severity in early 2024 and in September presented to a local ED where imaging showed new pancreatic duct lithiasis and PD dilation. Falguni has almost immediate abdomina pain after he eats and has lost over 30lbs, mostly over the course of 2024. Prior to this year he describes mild self-limited epigastric pain 2-3x/week. He had a newdiagnosis of diabetes in December. He underwent an EUS on 01/04/2025 showing pancreatic stones in the pancreatic head. Pancreatic parenchymal abnormalities consisting of hyperechoic foci were also noted in the pancreatic head. He presents for a consultation. PMH and Meds are listed below. PSHx: Laparoscopic cholecystectomy Fam Hx: No pancreatitis Soc: On disability. Lives with his girlfriend Kaylynn of over 30 years. 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 Abdomen soft, NT/ND Mild epigastric pressure with palpation. Relevant Imaging and labs: 01/04/2025 EUS - Z-line regular, 40 cm from the incisors. - Normal stomach. - Normal duodenal bulb, first portion of the duodenum and second portion of the duodenum. - Findings suggestive of pancreatic stones were identified in the pancreatic head. - Pancreatic parenchymal abnormalities consisting of hyperechoic foci were noted in the pancreatic head. - No specimens collected. A+P: Elvin Sutherland is a 55 y.o. male with recurrent acute pancreatitis leading to chronic pancreatitis with PD obstruction by a stone and medically refractory pain. We discussed the interventional options including endoscopic and surgical intervention. In line with the findings of the ESCAPE trial I recommended surgery as likely to result in better and more durable pain control with fewer interventions than endosopy. We did discuss that given he did have regular symptoms prior to the development of stones and PD obstruction, that surgery would not likely render him symptom-free, but that it offered the best chance of improving his quality of life. He would like to pursue surgery - Puestow procedure with PD lithiotripsy - and this is what was recommended by both his gastroenterologists. We will update imaging with a pre-op MRCP, and get routine pre-op labs and EKG today. He will need to hold his pre-op Trulicity dose. Other medication instructions per his pre-anesthesia phone call. Will schedule at his convenience. Consent signed today. Blair Finnegan MD #[id number] I personally spent a total of 60 minutes on care for this patient on the date of the encounter. This includes dfmx-bo-srys time during the visit as well as non [id number]-yn-[id number] time spent on chart review, documentation, and care coordination. PMHx: Pancreatitis Back pain DM Hypertriglyceridemia Current Outpatient Medications Ordered in Epic Medication Sig citalopram (CELEXA) 20 MG tablet Take 20 mg by mouth daily. fenofibrate (LOFIBRA) 54 MG tablet Take 54 mg by mouth 2 (two) times a day. naproxen sodium (ALEVE) 220 MG tablet Take 220 mg by mouth every 12 (twelve) hours as needed for pain (specific location in comments). nortriptyline (PAMELOR) 25 MG capsule Take 75 mg by mouth nightly at bedtime. omeprazole (PRILOSEC) 40 MG capsule Take 40 mg by mouth daily. ondansetron (ZOFRAN-ODT) 4 MG disintegrating tablet Take 4 mg by mouth every 8 (eight) hours as needed for nausea. oxyCODONE HCl 10 mg Tab Take 5 mg by mouth every 6 (six) hours as needed. pancrelipase, bkxdki-xlxztmkg-vdoakiy, (CREON) 36,000-114,000- 180,[address] capsule Take 2 capsules (72,000 units of lipase total) by mouth 3 (three) times a day with meals. Take 1 with snacks pioglitazone (ACTOS) 30 MG tablet Take 30 mg by mouth daily. rosuvastatin (CRESTOR) 40 MG tablet Take 40 mg by mouth daily. SUMAtriptan (IMITREX) 100 MG tablet Take 100 mg by mouth once as needed for migraine. Not to [id number] mg/day tiZANidine (ZANAFLEX) 2 MG tablet Take 4 mg by mouth 3 (three) times a day. zolpidem (AMBIEN) 10 mg tablet Take 10 mg by mouth nightly at bedtime as needed for sleep. documented in this encounter Procedure Notes Only the most recent of 2 notes is shown. * Joselyn Self MD, PhD - 05/11/2025 5:09 PM EDT Brief Op Note Patient Name: Elvin Sutherland Date of Surgery: 05/11/2025 Pre-Op Diagnosis Codes: * Chronic pancreatitis, unspecified pancreatitis type [K86.1] Post-Op Diagnosis Codes: * Chronic pancreatitis, unspecified pancreatitis type [K86.1] Procedure(s): PUESTOW PROCEDURE Surgeons and Role: * Blair Finnegan MD - Primary Resident: Joselyn Self MD, PhD Food Dehydrator Operator: Ion Vines MD, MSc Ophthalmic Surgical Assistant: Kely Serrano MD Anesthesia Type: General Procedure Findings: atrophied pancreatic gland. Palpable duct. Duct opened with cautery, with efflux of clear fluid. Exploration of distal duct with spyglass scope. Single large pancreatic duct stoneidentified and disrupted with lithotripsy. Stone remnants flushed from duct. Duct clear to the ampulla. Creation of ydmh-ti-pkdr anastomosis between pancreatic duct and retro-colic ramone limb of jejunum. Side to side stapled small bowel anastomosis. Sukhdeep drain placed near pancreatico-jejunostomy. Estimated Blood Loss: 50 mL Specimens: ID Type Source Tests Collected by Time 1 : Pancreatic Stones Stone Pancreas TISSUE EXAM Blair Finnegan MD 05/11/2025 1438 Drains: Closed/Suction Drain Bulb 15 Fr. RLQ (Active) Is there concern for infection at the time of the procedure?: No Plan N - tylenol ATC; epidural in place -- HOLD home tizanidine, nortyriptyline CV - HOLD home statin, fenofibrate P - no issues GI - sips of clears; LR @ 75 cc/hr -- HOLD home creon until taking PO - corbett in place while epidural in place H - sqh ppx POD1 ID - no postop abx E - SSI SUKHDEEP to self suction [ ] postop check 9:15 pm Joselyn Self MD, PhD General Surgery Resident, PGY5 [facility] [id number] documented in this encounter Nursing Notes Only the most recent of 3 notes is shown. * Zahra Leiva RN - 05/17/2025 5:00 PM EDT Nursing Progress Note 55M with recurrent acute pancreatitis leading to chronic pancreatitis with PD obstruction by a stone and medically refractory pain s/p Puestow procedure (05/11/25, [place]) Hx of chronic pain (neck and back) with opioid use, DM2, hypertriglycerides. Neuro: AxOx3. CAM negative. Pleasant and cooperative with care. Pt voicing frustrations with inadequate pain control this shift- emotional support provided. ID: Afebrile. WBCs 5.16 (3.90). Pain: 8-10/10 pain to abdomen. PO 15mg Oxycodone available q 3hr given x3 with good effect. PRN tizanidine given with some effect. Heating pad to abd with good effect. Refusing PO Tylenol d/t GI upset. Pt has history of opioid use at home d/t chronic pain, APS following. CV/Resp: Bps 90s-130s/60s-70s. HR 60-90s. LS clear bilaterally, diminished in the bases. O2 > 93% on RA. GI/: PSS- some food intake, some liquids. Encouraged to increase, but poor appetite. Denies N&V or fullness, reports some bloating. FS ACHS. Voiding adequate amts CYU Ind in BR. Abd slightly distended, soft. +BS, +flatus this shift. +2 large BM. Fleet enema ordered, partial dose given pt unable to tolerate full dose. Cont bowel reg as ordered. Skin: MLI TOBACCO SWEEPER with steri strips. Old SUKHDEEP drain site to RUQ D&I. Mobility: OOB independent, gait slow steady. Ambulating halls frequently on days. Plan: Encourage PO intake. Pain management, advance diet as able. Encourage OOB as tolerated. documented in this encounter OR Notes * Post-op/Post Procedure Note - Deneen Martinez MD - 05/11/2025 9:15 PM EDT Images from the original note were not included. Post-Operative Check 05/11/2025 9:15PM Procedure: Puestow Procedure Findings: Atrophied pancreatic gland. Palpable duct. Duct opened with cautery, with efflux of clearfluid. Exploration of distal duct with spyglass scope. Single large pancreatic duct stone identified and disrupted with lithotripsy. Stone remnants flushed from duct. Duct clear to the ampulla. Creation of zuuv-ql-fgib anastomosis between pancreatic duct and retro-colic ramone limb of jejunum. Side to side stapled small bowel anastomosis. Sukhdeep drain placed near pancreatico-jejunostomy. Subjective: Patient seen and examined and feeling well. He reports moderate to severe incisional tenderness but otherwise recovering appropriately.?? Reports no chest pain, shortness of breath, nausea, or vomiting. Physical Exam: Vitals: 36.1 ??C (97 ??F) HR 83 BP 128/71 RR 18 SpO2 95 % 6 FiO2 68 kg (150 lb) General: Laying in bed uncomfortably. Neuro: Alert and interactive. Cardiovascular: Regular rate and rhythm. Pulmonary: Good respiratory effort. No increased WOB. Respirations symmetrical and unlabored. Abdomen: Soft, non-distended, without guarding or rigidity. Moderate to severe tenderness to palpation around incisions. SUKHDEEP drain with serosanguineous fluid. : Corbett in place draining clear yellow urine. Wound: Dressing clean, dry and intact. Extremities: Warm and well perfused. SCDs in place. Assessment/Plan: 55M with recurrent acute pancreatitis leading to chronic pancreatitis with PD obstruction by a stone and medically refractory pain s/p Puestow procedure (05/11, [place]) Patient is recovering appropriately post-op. Will continue to monitor currently for pain management. Have been in contact with APS to assist with pain given this patient's history of chronic opioid use for his chronic pain. At home he takes 10 mg of oxycodone every 6 hours. Plan N - tylenol ATC; epidural in place -- HOLD home tizanidine, nortyriptyline CV - HOLD home statin, fenofibrate P - no issues GI - sips of clears; LR @ 75 cc/hr -- HOLD home creon until taking PO - corbett in place while epidural in place H - sqh ppx POD1 ID - no postop abx E - SSI SUKHDEEP to self suction Deneen Martinez MD PGY-1 Department of Urology [email or web address] documented in this encounter Miscellaneous Notes * Hospital Course - GeeMarilee butterfield, HARRIS - 05/11/2025 11:19 AM EDT Elvin Sutherland is a 55 year old gentleman with PMHx of history of diabetes, Hypertriglyceridemia, with recurrent acute pancreatitis leading to chronic pancreatitis with PD obstruction by a stone andmedically refractory pain. He presents today for planned Peustow procedure. Elvin Sutherland was [facility] to the [facility] on 05/11/2025 and taken to the OR for a lateral pancreaticojejunostomy (Puestow procedure), direct surgical removal of pancreatic duct stones, pancreatoscopy, and lithotripsy of pancreatic duct stones. Intraoperative findings were notable for atrophied pancreatic gland. Palpable duct. Duct opened with cautery, with efflux of clear fluid. Exploration of distal duct with spyglass scope demonstrated a single large pancreatic duct stone which was disrupted with lithotripsy. Estimated blood loss was 50 ml. Please see separately dictated operative note by Blair Finnegan MD for details of this procedure. Postoperatively, patient was extubated and transferred to the PACU, where he remained afebrile and hemodynamically stable. He was transferred to the floor when a bed became available in stable condition with a Rogerio-Vernon (SUKHDEEP) drain in place. . Initial postoperative pain was managed with IV Tylenol and a Dilaudid/Bupivacaine epidural. This was transitioned to oral analgesia as his diet was advanced with assistance of the Acute Pain service given history of home oxycodone use. At discharge, patient was taking Oxycodone 10-15 mg every 3- 6 hours with Tizanidine 2 mg tid prn. Taper instructions were provided to patient and home prescriber, Dr Alfa Russell was notified of post op pain management plan. The patient was allowed sips of clear liquids on POD#1 and full liquids on POD#2. His diet was advanced slowly, until he was tolerating a soft solid diet on POD#6. SUKHDEEP Amylase was checked and found roro low (14). Drain was removed on POD#3. Blood glucose levels were predominantly normal to slightly elevated post operatively. Patient was instructed to wait to resume Pioglitazone once po intake had increased and blood glucose was consistently > 160. He was instructed to hold Trulicity until follow up with Dr Finnegan to encourage adequate oral intake. By the day of discharge on POD#7 , Mr. Sutherland was ambulating independently, voiding good amounts of urine, and tolerating a soft solid diet with no complaints of nausea/vomiting. PO intake of soft foods was limited, however patient was able to drink multiple Ensure supplements daily. His abdomen was soft and nondistended, with only appropriate incisional tenderness. His surgical wound was clean and dry, with steri-strips intact, and no signs of infection noted. His pain was well controlled on oral pain medication, and he expressed his readiness to be discharged home. Full discharge instructions appended below. Quality Clinical Documentation:{The following information has been identified from automated chart review of the hospitalization. Please remove anything that is incorrect. (these instructions will automatically disappear when the note is signed.):[id number]} Quality Clinical Documentation: Hypomagnesemia (Present on Admission) . Monitoring . Magnesium of 1.2 on 05/12/2025 Anemia due to acute blood loss. Monitoring documented in this encounter Plan of Treatment Upcoming Encounters Date Type Department Care Team (Late st Contact Info) Description 06/18/2025 11:15 AM EDT Office Visit [facility] General & Gastrointestinal Surgery [address], [address], [address] [place] [address] Blair Finnegan MD [address] [place] [phone] [email or web address] 10/31/2025 10:00 AM EDT Office Visit [facility] [address] [place] [address], 5[address] [place] [address] Sandip Callejas PA-C [address] [place] [address] [address] [place] [address] [email or web address] [email or web address] Results Name Type Priority Associated Diagnoses Date /Time Anatomic Pathology Pathology and Cytology Routine 05/11/2025 2:38 PM EDT Scheduled Orders Name Type Priority Associated Diagnoses Order Schedule Anatomic Pathology Pathology and Cytology Routine Once for 1 Occurrences starting 05/14/2025 until 05/14/2025 documented as of this encounter Procedures Procedure Name Priority Date/Time Associated Diagnosis Comments POCT GLUCOSE Routine 05/18/2025 10:40 AM EDT POCT GLUCOSE Routine 05/18/2025 7:45 AM EDT POCT GLUCOSE Routine 05/17/2025 9:03 PM EDT POCT GLUCOSE Routine 05/17/2025 5:19 PM EDT POCT GLUCOSE Routine 05/17/2025 1:02 PM EDT POCT GLUCOSE Routine 05/17/2025 9:08 AM EDT POCT GLUCOSE Routine 05/17/2025 8:14 AM EDT LAB ADD ON Routine 05/17/2025 7:29 AM EDT CBC Routine 05/17/2025 5:10 AM EDT PHOSPHORUS Routine 05/17/2025 5:10 AM EDT MAGNESIUM Routine 05/17/2025 5:10 AM EDT LIPASE Routine 05/17/2025 5:10 AM EDT BASIC METABOLIC PANEL Routine 05/17/2025 5:10 AM EDT POCT GLUCOSE Routine 05/16/2025 9:04 PM EDT POCT GLUCOSE Routine 05/16/2025 5:29 PM EDT POCT GLUCOSE Routine 05/16/2025 11:41 AM EDT CBC Routine 05/16/2025 3:15 AM EDT PHOSPHORUS Routine 05/16/2025 3:15 AM EDT MAGNESIUM Routine 05/16/2025 3:15 AM EDT BASIC METABOLIC PANEL Routine 05/16/2025 3:15 AM EDT POCT GLUCOSE Routine 05/15/2025 9:00 PM EDT POCT GLUCOSE Routine 05/15/2025 5:22 PM EDT POCT GLUCOSE Routine 05/15/2025 11:41 AM EDT POCT GLUCOSE Routine 05/15/2025 11:07 AM EDT POCT GLUCOSE Routine 05/15/2025 7:50 AM EDT CBC Routine 05/15/2025 2:10 AM EDT PHOSPHORUS Routine 05/15/2025 2:10 AM EDT MAGNESIUM Routine 05/15/2025 2:10 AM EDT BASIC METABOLIC PANEL Routine 05/15/2025 2:10 AM EDT POCT GLUCOSE Routine 05/14/2025 9:44 PM EDT POCT GLUCOSE Routine 05/14/2025 4:48 PM EDT POCT GLUCOSE Routine 05/14/2025 12:20 PM EDT CHEMISTRY COMMENT Routine 05/14/2025 10:55 AM EDT AMYLASE (FLUID--NOT CSF) Routine 05/14/2025 10:55 AM EDT POCT GLUCOSE Routine 05/14/2025 5:16 AM EDT CBC Routine 05/14/2025 3:16 AM EDT PHOSPHORUS Routine 05/14/2025 3:16 AM EDT MAGNESIUM Routine 05/14/2025 3:16 AM EDT BASIC METABOLIC PANEL Routine 05/14/2025 3:16 AM EDT POCT GLUCOSE Routine 05/14/2025 12:56 AM EDT POCT GLUCOSE Routine 05/13/2025 9:17 PM EDT POCT GLUCOSE Routine 05/13/2025 6:31 PM EDT POCT GLUCOSE Routine 05/13/2025 5:59 PM EDT POCT GLUCOSE Routine 05/13/2025 11:57 AM EDT POCT GLUCOSE Routine 05/13/2025 8:06 AM EDT POCT GLUCOSE Routine 05/13/2025 6:18 AM EDT CBC Routine 05/13/2025 5:29 AM EDT PHOSPHORUS Routine 05/13/2025 5:29 AM EDT MAGNESIUM Routine 05/13/2025 5:29 AM EDT BASIC METABOLIC PANEL Routine 05/13/2025 5:29 AM EDT POCT GLUCOSE Routine 05/12/2025 11:38 PM EDT POCT GLUCOSE Routine 05/12/2025 8:54 PM EDT POCT GLUCOSE Routine 05/12/2025 6:49 PM EDT POCT GLUCOSE Routine 05/12/2025 6:17 PM EDT POCT GLUCOSE Routine 05/12/2025 11:45 AM EDT VANCOMYCIN RESISTANT ENTEROCOCCI (VRE) RECTAL SCREEN Routine 05/12/2025 6:01 AM EDT MRSA NASAL SCREEN Routine 05/12/2025 5:5 8 AM EDT POCT GLUCOSE Routine 05/12/2025 5:40 AM EDT CBC Routine 05/12/2025 3:47 AM EDT PHOSPHORUS Routine 05/12/2025 3:47 AM EDT MAGNESIUM Routine 05/12/2025 3:47 AM EDT BASIC METABOLIC PANEL Routine 05/12/2025 3:47 AM EDT POCT GLUCOSE Routine 05/12/2025 12:20 AM EDT POCT GLUCOSE Routine 05/11/2025 5:09 PM EDT URINALYSIS W/REFLEX URINE CULTURE Routine 05/11/2025 1:29 PM EDT AZ ANAST PANCREAS-JEJUNUM/S ZAHRA-SIDE 05/11/2025 12:52 PM EDT Chronic pancreatitis, unspecified pancreatitis type Special Needs Spyglass lithotripsy POCT GLUCOSE Routine 05/11/2025 12:45 PM EDT ABO AND RH STAT 05/11/2025 12:39 PM EDT TYPE AND SCREEN (ABO,RH,ANTIBODY SCREEN) STAT 05/11/2025 12:39 PM EDT POCT GLUCOSE Routine 05/11/2025 7:28 AM EDT documented in this encounter Results * (ABNORMAL) POCT Glucose (05/18/2025 10:40 AM EDT) [facility] Signature Glucose, POCT 208(H) 70 - 110 mg/dL [facility] 05/18/2025 10:4 0 AM EDT 05/18/2025 10:52 AM EDT us Blair Finnegan MD POINT OF CARE TEST ORDERABL ES Final Result Performing Organization Address City/[facility]/ZIP Co de Phone Number [address] [address] * POCT Glucose (05/18/2025 7:45 AM EDT) Glucose, POCT 107 70 - 110 mg/dL [facility] 05/18/2025 7:45 AM EDT 05/18/2025 7:47 AM EDT us Blair Finnegan MD POINT OF CARE TEST ORDERABL ES Final Result Performing Organization Address [facility]/ZIP Co de Phone Number [address] [address] * (ABNORMAL) POCT Glucose (05/17/2025 9:03 PM EDT) Glucose, POCT 150(H) 70 - 110 mg/dL [facility] 05/17/2025 9:03 PM EDT 05/17/2025 9:05 PM EDT us Blair Finnegan MD POINT OF CARE TEST ORDERABL ES Final Result Performing Organization Address City/[facility]/ZIP Co de Phone Number [address] [address] * (ABNORMAL) POCT Glucose (05/17/2025 5:19 PM EDT) Glucose, POCT 147(H) 70 - 110 mg/dL [facility] 05/17/2025 5:19 PM EDT 05/17/2025 5:21 PM EDT us Blair Finnegan MD POINT OF CARE TEST ORDERABL ES Final Result [address] [address] * (ABNORMAL) POCT Glucose (05/17/2025 1:02 PM EDT) Glucose, POCT 166(H) 70 - 110 mg/dL [facility] 05/17/2025 1:02 PM EDT 05/17/2025 1:07 PM EDT us Blair Finnegan MD POINT OF CARE TEST ORDERABL ES Final Result [address] [address] * (ABNORMAL) POCT Glucose (05/17/2025 9:08 AM EDT) Glucose, POCT 112(H) 70 - 110 mg/dL [facility] 05/17/2025 9:08 AM EDT 05/17/2025 9:14 AM EDT us Blair Fninegan MD POINT OF CARE TEST ORDERABL ES Final Result [address] [address] * (ABNORMAL) POCT Glucose (05/17/2025 8:14 AM EDT) Glucose, POCT 159(H) 70 - 110 mg/dL [facility] 05/17/2025 8:14 AM EDT 05/17/2025 8:21 AM EDT us Blair Finnegan MD POINT OF CARE TEST ORDERABL ES Final Result Performing Organization Address City/[facility]/ZIP Co de Phone Number [address] [address] * Lab Add On: lipase (05/17/2025 7:29 AM EDT) TEST REQUESTED LIPASE [facility] Comments (Chemistry) ADD ON COMPLETE. [facility] 05/17/2025 7:29 AM EDT 05/17/2025 8:50 AM EDT us Marilee Hartleydeniz Quevedo CNP LAB BLOOD ORDERABLES Fin al Result Performing Organization Address City/[facility] Co de Phone Number [address] [address] * (ABNORMAL) Lipase (05/17/2025 5:10 AM EDT) LIPASE 9(L) 13 - 60 U/L [facility] 05/17/2025 5:10 AM EDT 05/17/2025 5:25 AM EDT us Joselyn Self MD, PhD LAB BLOOD ORDERABLES F inal Result Performing Organization Address [facility] Co de Phone Number [address] [address] * (ABNORMAL) CBC (05/17/2025 5:10 AM EDT) WBC 5.16 4.00 - 11.00 K/uL [facility] RBC 3.85(L) 4.50 - 5.90 M/uL [facility] HGB 10.8(L) 13.5 - 17.5 g/dL [facility] HCT 32.6(L) 41.0 - 53.0 % [facility] PLT 224 150 - 450 K/uL [facility] MCV 84.7 80.0 - 100.0 fL [facility] MCH 28.1 27.0 - 31.0 pg [facility] MCHC 33.1 32.0 - 36.0 g/dL [facility] RDW 13.3 11.5 - 14.5 % [facility] MPV 11.8 8.4 - 12.0 fL [facility] NRBC 0.00 0.00 /100 WBCs [facility] ABSOLUTE NRBC 0.00 0.00 K/uL [facility] Blood 05/17/2025 5:10 AM EDT 05/17/2025 5:26 AM EDT us Blair Finnegan MD LAB BLOOD ORDERABLES Final Result Performing Organization Address City/[facility] Co de Phone Number [address] [address] * Phosphorus (05/17/2025 5:10 AM EDT) PHOSPHORUS 2.6 2.6 - 4.5 mg/dL [facility] Blood 05/17/2025 5:10 AM EDT 05/17/2025 5:25 AM EDT Blair Finnegan MD LAB BLOOD ORDERABLES Final Result Performing Organization Address [facility] Co de Phone Number [address] [address] * Magnesium (05/17/2025 5:10 AM EDT) MAGNESIUM 1.7 1.7 - 2.4 mg/dL [facility] Blood 05/17/2025 5:10 AM EDT 05/17/2025 5:25 AM EDT us Blair Finnegan MD LAB BLOOD ORDERABLES Final Result Performing Organization Address [facility] Co de Phone Number [address] [address] * Basic metabolic panel (05/17/2025 5:10 AM EDT) SODIUM 142 135 - 145 mmol/L [facility] POTASSIUM 3.4 3.4 - 5.0 mmol/L [facility] CHLORIDE 106 98 - 108 mmol/L [facility] CO2 24 23 - 32 mmol/L [facility] BUN 8 8 - 25 mg/dL [facility] CREATININE 0.80 0.60 - 1.30 mg/dL [facility] GLUCOSE 110 70 - 110 mg/dL [facility] CALCIUM 9.2 8.5 - 10.5 mg/dL [facility] EGFR 106 >59 mL/min/1.7 3m2 [facility] Comment:Estimated glomerular filtration rate calculated using the CKD-EPI refit equation. ANION GAP 12 3 - 17 mmol/L [facility] Blood 05/17/2025 5:10 AM EDT 05/17/2025 5:25 AM EDT us Blair Finnegan MD LAB BLOOD ORDERABLES Final Result [address] [address] * (ABNORMAL) POCT Glucose (05/16/2025 9:04 PM EDT) Glucose, POCT 176(H) 70 - 110 mg/dL [facility] 05/16/2025 9:04 PM EDT 05/16/2025 9:06 PM EDT us Blair Finnegan MD POINT OF CARE TEST ORDERABL ES Final Result Performing Organization Address [facility] Co de Phone Number [address] [address] * (ABNORMAL) POCT Glucose (05/16/2025 5:29 PM EDT) Glucose, POCT 135(H) 70 - 110 mg/dL [facility] 05/16/2025 5:29 PM EDT 05/16/2025 5:35 PM EDT us Blair Finnegan MD POINT OF CARE TEST ORDERABL ES Final Result Performing Organization Address [facility] Co de Phone Number [address] [address] * (ABNORMAL) POCT Glucose (05/16/2025 11:41 AM EDT) Glucose, POCT 156(H) 70 - 110 mg/dL [facility] 05/16/2025 11:4 1 AM EDT 05/16/2025 11:47 AM EDT us Blair Finnegan MD POINT OF CARE TEST ORDERABL ES Final Result Performing Organization Address [facility] Co de Phone Number [address] [address] * (ABNORMAL) CBC (05/16/2025 3:15 AM EDT) WBC 3.90(L) 4.00 - 11.00 K/uL [facility] RBC 3.85(L) 4.50 - 5.90 M/uL [facility] HGB 11.2(L) 13.5 - 17.5 g/dL [facility] HCT 33.2(L) 41.0 - 53.0 % [facility] PLT 197 150 - 450 K/uL [facility] MCV 86.2 80.0 - 100.0 fL [facility] MCH 29.1 27.0 - 31.0 pg [facility] MCHC 33.7 32.0 - 36.0 g/dL [facility] RDW 13.1 11.5 - 14.5 % [facility] MPV 12.3(H) 8.4 - 12.0 fL [facility] NRBC 0.00 0.00 /100 WBCs [facility] ABSOLUTE NRBC 0.00 0.00 K/uL [facility] Blood 05/16/2025 3:15 AM EDT 05/16/2025 3:50 AM EDT us Blair Finnegan MD LAB BLOOD ORDERABLES Final Result [address] [address] * (ABNORMAL) Phosphorus (05/16/2025 3:15 AM EDT) PHOSPHORUS 2.2(L) 2.6 - 4.5 mg/dL [facility] Blood 05/16/2025 3:15 AM EDT 05/16/2025 3:50 AM EDT us Blair Finnegan MD LAB BLOOD ORDERABLES Final Result [address] [address] * Magnesium (05/16/2025 3:15 AM EDT) MAGNESIUM 1.7 1.7 - 2.4 mg/dL [facility] Blood 05/16/2025 3:15 AM EDT 05/16/2025 3:50 AM EDT us Blair Finnegan MD LAB BLOOD ORDERABLES Final Result [address] [address] * (ABNORMAL) Basic metabolic panel (05/16/2025 3:15 AM EDT) SODIUM 138 135 - 145 mmol/L [facility] POTASSIUM 4.0 3.4 - 5.0 mmol/L [facility] CHLORIDE 104 98 - 108 mmol/L [facility] CO2 21(L) 23 - 32 mmol/L [facility] BUN 6(L) 8 - 25 mg/dL [facility] CREATININE 0.82 0.60 - 1.30 mg/dL [facility] GLUCOSE 90 70 - 110 mg/dL [facility] CALCIUM 9.4 8.5 - 10.5 mg/dL [facility] EGFR 105 >59 mL/min/1.7 3m2 [facility] Comment:Estimated glomerular filtration rate calculated using the CKD-EPI refit equation. ANION GAP 13 3 - 17 mmol/L [facility] Blood 05/16/2025 3:15 AM EDT 05/16/2025 3:50 AM EDT us Blair Finnegan MD LAB BLOOD ORDERABLES Final Result Performing Organization Address [facility]/ZIP Co de Phone Number [address] [address] * POCT Glucose (05/15/2025 9:00 PM EDT) Glucose, POCT 93 70 - 110 mg/dL [facility] 05/15/2025 9:00 PM EDT 05/15/2025 9:02 PM EDT us Blair Finnegan MD POINT OF CARE TEST ORDERABL ES Final Result Performing Organization Address [facility]/ZIP Co de Phone Number [address] [address] * POCT Glucose (05/15/2025 5:22 PM EDT) Glucose, POCT 88 70 - 110 mg/dL [facility] 05/15/2025 5:22 PM EDT 05/15/2025 5:23 PM EDT us Blair Finnegan MD POINT OF CARE TEST ORDERABL ES Final Result [address] [address] * (ABNORMAL) POCT Glucose (05/15/2025 11:41 AM EDT) Glucose, POCT 132(H) 70 - 110 mg/dL [facility] 05/15/2025 11:4 1 AM EDT 05/15/2025 11:43 AM EDT us Blair Finnegan MD POINT OF CARE TEST ORDERABL ES Final Result Performing Organization Address [facility]/ZIP Co de Phone Number [address] [address] * (ABNORMAL) POCT Glucose (05/15/2025 11:07 AM EDT) Glucose, POCT 121(H) 70 - 110 mg/dL [facility] 05/15/2025 11:0 7 AM EDT 05/15/2025 11:13 AM EDT us Blair Finnegan MD POINT OF CARE TEST ORDERABL ES Final Result Performing Organization Address City/[facility]/ZIP Co de Phone Number [address] [address] * POCT Glucose (05/15/2025 7:50 AM EDT) Glucose, POCT 81 70 - 110 mg/dL [facility] 05/15/2025 7:50 AM EDT 05/15/2025 7:55 AM EDT us Blair Finnegan MD POINT OF CARE TEST ORDERABL ES Final Result Performing Organization Address City/[facility]/ZIP Co de Phone Number [address] [address] * (ABNORMAL) CBC (05/15/2025 2:10 AM EDT) WBC 4.82 4.00 - 11.00 K/uL [facility] RBC 3.56(L) 4.50 - 5.90 M/uL [facility] HGB 10.2(L) 13.5 - 17.5 g/dL [facility] HCT 31.0(L) 41.0 - 53.0 % [facility] PLT 166 150 - 450 K/uL [facility] MCV 87.1 80.0 - 100.0 fL [facility] MCH 28.7 27.0 - 31.0 pg [facility] MCHC 32.9 32.0 - 36.0 g/dL [facility] RDW 12.8 11.5 - 14.5 % [facility] MPV 13.0(H) 8.4 - 12.0 fL [facility] NRBC 0.00 0.00 /100 WBCs [facility] ABSOLUTE NRBC 0.00 0.00 K/uL [facility] Blood 05/15/2025 2:10 AM EDT 05/15/2025 2:14 AM EDT us Blair Finnegan MD LAB BLOOD ORDERABLES Final Result [address] [address] * (ABNORMAL) Phosphorus (05/15/2025 2:10 AM EDT) PHOSPHORUS 1.8(L) 2.6 - 4.5 mg/dL [facility] Blood 05/15/2025 2:10 AM EDT 05/15/2025 2:14 AM EDT us Blair Finnegan MD LAB BLOOD ORDERABLES Final Result [address] [address] * (ABNORMAL) Magnesium (05/15/2025 2:10 AM EDT) MAGNESIUM 1.6(L) 1.7 - 2.4 mg/dL [facility] Blood 05/15/2025 2:10 AM EDT 05/15/2025 2:14 AM EDT us Blair Finnegan MD LAB BLOOD ORDERABLES Final Result [address] [address] * (ABNORMAL) Basic metabolic panel (05/15/2025 2:10 AM EDT) SODIUM 135 135 - 145 mmol/L [facility] POTASSIUM 3.3(L) 3.4 - 5.0 mmol/L [facility] CHLORIDE 100 98 - 108 mmol/L [facility] CO2 23 23 - 32 mmol/L [facility] BUN 6(L) 8 - 25 mg/dL [facility] CREATININE 0.76 0.60 - 1.30 mg/dL [facility] GLUCOSE 113(H) 70 - 110 mg/dL [facility] CALCIUM 8.5 8.5 - 10.5 mg/dL [facility] EGFR 107 >59 mL/min/1. 73m2 [facility] Comment:Estimated glomerular filtration rate calculated using the CKD-EPI refit equation. ANION GAP 12 3 - 17 mmol/L [facility] Blood 05/15/2025 2:10 AM EDT 05/15/2025 2:14 AM EDT us Blair Finnegan MD LAB BLOOD ORDERABLES Final Result Performing Organization Address City/[facility]/ZIP Co de Phone Number [address] [address] * POCT Glucose (05/14/2025 9:44 PM EDT) Glucose, POCT 93 70 - 110 mg/dL [facility] 05/14/2025 9:44 PM EDT 05/14/2025 9:46 PM EDT us Blair Finnegan MD POINT OF CARE TEST ORDERABL ES Final Result [address] [address] * POCT Glucose (05/14/2025 4:48 PM EDT) Glucose, POCT 93 70 - 110 mg/dL [facility] 05/14/2025 4:48 PM EDT 05/14/2025 4:50 PM EDT us Blair Finnegan MD POINT OF CARE TEST ORDERABL ES Final Result Performing Organization Address [facility]/ZIP Co de Phone Number [address] [address] * POCT Glucose (05/14/2025 12:20 PM EDT) Glucose, POCT 89 70 - 110 mg/dL [facility] 05/14/2025 12:2 0 PM EDT 05/14/2025 12:23 PM EDT Blair Finnegan MD POINT OF CARE TEST ORDERABL ES Final Result Performing Organization Address [facility] Co de Phone Number [address] [address] * Chemistry Comment (05/14/2025 10:55 AM EDT) Comments (Chemistry) ROGERIO VERNON DRAIN [facility] 05/14/2025 10:5 5 AM EDT 05/14/2025 11:30 AM EDT Marilee Quevedo [employer] LAB BLOOD ORDERABLES Fin al Result Performing Organization Address [facility]/ZIP Co de Phone Number [address] [address] * Amylase (fluid--not CSF) Other fluid (specify below) (05/14/2025 10:55 AM EDT) FLUID AMYLASE 14 U/L [facility] Other (Other fluid (specify below)) 05/14/2025 10:55 AM EDT 05/14/2025 11:30 AM EDT us Marilee Quevedo [employer] BODY FLUIDS AND STOOLS O RDERABLES Final Result Performing Organization Address City/[facility]/ZIP Co de Phone Number [address] [address] * POCT Glucose (05/14/2025 5:16 AM EDT) Glucose, POCT 91 70 - 110 mg/dL [facility] 05/14/2025 5:16 AM EDT 05/14/2025 5:21 AM EDT us Blair Finnegan MD POINT OF CARE TEST ORDERABL ES Final Result Performing Organization Address [facility] Co de Phone Number [address] [address] * (ABNORMAL) CBC (05/14/2025 3:16 AM EDT) WBC 4.96 4.00 - 11.00 K/uL [facility] RBC 3.61(L) 4.50 - 5.90 M/uL [facility] HGB 10.4(L) 13.5 - 17.5 g/dL [facility] HCT 31.4(L) 41.0 - 53.0 % [facility] PLT 125(L) 150 - 450 K/uL [facility] MCV 87.0 80.0 - 100.0 fL [facility] MCH 28.8 27.0 - 31.0 pg [facility] MCHC 33.1 32.0 - 36.0 g/dL [facility] RDW 13.1 11.5 - 14.5 % [facility] MPV 13.0(H) 8.4 - 12.0 fL [facility] NRBC 0.00 0.00 /100 WBCs [facility] ABSOLUTE NRBC 0.00 0.00 K/uL [facility] Blood 05/14/2025 3:16 AM EDT 05/14/2025 3:35 AM EDT us Blair Finnegan MD LAB BLOOD ORDERABLES Final Result Performing Organization Address City/[facility]/ZIP Co de Phone Number [address] [address] * (ABNORMAL) Phosphorus (05/14/2025 3:16 AM EDT) PHOSPHORUS 1.4(L) 2.6 - 4.5 mg/dL [facility] Blood 05/14/2025 3:16 AM EDT 05/14/2025 3:34 AM EDT Blair Finnegan MD LAB BLOOD ORDERABLES Final Result Performing Organization Address [facility] Co de Phone Number [address] [address] * (ABNORMAL) Magnesium (05/14/2025 3:16 AM EDT) MAGNESIUM 1.4(L) 1.7 - 2.4 mg/dL [facility] Blood 05/14/2025 3:16 AM EDT 05/14/2025 3:34 AM EDT Blair Finnegan MD LAB BLOOD ORDERABLES Final Result Performing Organization Address [facility] de Phone Number [address] [address] * (ABNORMAL) Basic metabolic panel (05/14/2025 3:16 AM EDT) SODIUM 138 135 - 145 mmol/L [facility] POTASSIUM 3.9 3.4 - 5.0 mmol/L [facility] CHLORIDE 100 98 - 108 mmol/L [facility] CO2 27 23 - 32 mmol/L [facility] BUN 6(L) 8 - 25 mg/dL [facility] CREATININE 0.76 0.60 - 1.30 mg/dL [facility] GLUCOSE 99 70 - 110 mg/dL [facility] CALCIUM 9.0 8.5 - 10.5 mg/dL [facility] EGFR 107 >59 mL/min/1.7 3m2 [facility] Comment:Estimated glomerular filtration rate calculated using the CKD-EPI refit equation. ANION GAP 11 3 - 17 mmol/L [facility] Blood 05/14/2025 3:16 AM EDT 05/14/2025 3:34 AM EDT us Blair Finnegan MD LAB BLOOD ORDERABLES Final Result [address] [address] * POCT Glucose (05/14/2025 12:56 AM EDT) Glucose, POCT 85 70 - 110 mg/dL [facility] 05/14/2025 12:5 6 AM EDT 05/14/2025 1:06 AM EDT us Blair Finnegan MD POINT OF CARE TEST ORDERABL ES Final Result Performing Organization Address City/[facility]/ZIP Co de Phone Number [address] [address] * POCT Glucose (05/13/2025 9:17 PM EDT) Glucose, POCT 94 70 - 110 mg/dL [facility] 05/13/2025 9:17 PM EDT 05/13/2025 9:41 PM EDT us Blair Finnegan MD POINT OF CARE TEST ORDERABL ES Final Result Performing Organization Address [facility] Co de Phone Number [address] [address] * POCT Glucose (05/13/2025 6:31 PM EDT) Glucose, POCT 83 70 - 110 mg/dL [facility] 05/13/2025 6:31 PM EDT 05/13/2025 6:36 PM EDT us Blair Finnegan MD POINT OF CARE TEST ORDERABL ES Final Result Performing Organization Address City/[facility]/ZIP Co de Phone Number [address] [address] * POCT Glucose (05/13/2025 5:59 PM EDT) Glucose, POCT 85 70 - 110 mg/dL [facility] 05/13/2025 5:59 PM EDT 05/13/2025 6:04 PM EDT us Blair Finnegan MD POINT OF CARE TEST ORDERABL ES Final Result [address] [address] * POCT Glucose (05/13/2025 11:57 AM EDT) Glucose, POCT 103 70 - 110 mg/dL [facility] 05/13/2025 11:5 7 AM EDT 05/13/2025 12:02 PM EDT us Blair Finnegan MD POINT OF CARE TEST ORDERABL ES Final Result Performing Organization Address [facility]/ZIP Co de Phone Number [address] [address] * POCT Glucose (05/13/2025 8:06 AM EDT) Glucose, POCT 92 70 - 110 mg/dL [facility] 05/13/2025 8:06 AM EDT 05/13/2025 8:09 AM EDT us Blair Finnegan MD POINT OF CARE TEST ORDERABL ES Final Result Performing Organization Address [facility] Co de Phone Number [address] [address] * (ABNORMAL) POCT Glucose (05/13/2025 6:18 AM EDT) Glucose, POCT 111(H) 70 - 110 mg/dL [facility] 05/13/2025 6:18 AM EDT 05/13/2025 6:21 AM EDT us Blair Finnegan MD POINT OF CARE TEST ORDERABL ES Final Result Performing Organization Address [facility]/ZIP Co de Phone Number [address] [address] * (ABNORMAL) CBC (05/13/2025 5:29 AM EDT) WBC 7.49 4.00 - 11.00 K/uL [facility] RBC 3.87(L) 4.50 - 5.90 M/uL [facility] HGB 11.0(L) 13.5 - 17.5 g/dL [facility] HCT 34.1(L) 41.0 - 53.0 % [facility] PLT 123(L) 150 - 450 K/uL [facility] MCV 88.1 80.0 - 100.0 fL [facility] MCH 28.4 27.0 - 31.0 pg [facility] MCHC 32.3 32.0 - 36.0 g/dL [facility] RDW 13.3 11.5 - 14.5 % [facility] MPV 14.6(H) 8.4 - 12.0 fL [facility] NRBC 0.00 0.00 /100 WBCs [facility] ABSOLUTE NRBC 0.00 0.00 K/uL [facility] Blood 05/13/2025 5:29 AM EDT 05/13/2025 6:49 AM EDT us Blair Finnegan MD LAB BLOOD ORDERABLES Final Result [address] [address] * (ABNORMAL) Phosphorus (05/13/2025 5:29 AM EDT) PHOSPHORUS 1.2(L) 2.6 - 4.5 mg/dL [facility] Blood 05/13/2025 5:29 AM EDT 05/13/2025 6:49 AM EDT us Blair Finnegan MD LAB BLOOD ORDERABLES Final Result [address] [address] * (ABNORMAL) Magnesium (05/13/2025 5:29 AM EDT) MAGNESIUM 1.6(L) 1.7 - 2.4 mg/dL [facility] Blood 05/13/2025 5:29 AM EDT 05/13/2025 6:49 AM EDT us Blair Finnegan MD LAB BLOOD ORDERABLES Final Result [address] [address] * (ABNORMAL) Basic metabolic panel (05/13/2025 5:29 AM EDT) SODIUM 133(L) 135 - 145 mmol/L [facility] POTASSIUM 3.6 3.4 - 5.0 mmol/L [facility] CHLORIDE 99 98 - 108 mmol/L [facility] CO2 21(L) 23 - 32 mmol/L [facility] BUN 9 8 - 25 mg/dL [facility] CREATININE 0.90 0.60 - 1.30 mg/dL [facility] GLUCOSE 84 70 - 110 mg/dL [facility] CALCIUM 9.1 8.5 - 10.5 mg/dL [facility] EGFR 102 >59 mL/min/1. 73m2 [facility] Comment:Estimated glomerular filtration rate calculated using the CKD-EPI refit equation. ANION GAP 13 3 - 17 mmol/L [facility] Blood 05/13/2025 5:29 AM EDT 05/13/2025 6:49 AM EDT us Blair Finnegan MD LAB BLOOD ORDERABLES Final Result Performing Organization Address City/[facility]/ZIP Co de Phone Number [address] [address] * (ABNORMAL) POCT Glucose (05/12/2025 11:38 PM EDT) Glucose, POCT 121(H) 70 - 110 mg/dL [facility] 05/12/2025 11:3 8 PM EDT 05/12/2025 11:43 PM EDT us Blair Finnegan MD POINT OF CARE TEST ORDERABL ES Final Result [address] [address] * POCT Glucose (05/12/2025 8:54 PM EDT) Glucose, POCT 77 70 - 110 mg/dL [facility] 05/12/2025 8:54 PM EDT 05/12/2025 8:57 PM EDT us Blair Finnegan MD POINT OF CARE TEST ORDERABL ES Final Result Performing Organization Address City/[facility] Co de Phone Number [address] [address] * POCT Glucose (05/12/2025 6:49 PM EDT) Glucose, POCT 84 70 - 110 mg/dL [facility] 05/12/2025 6:49 PM EDT 05/12/2025 6:54 PM EDT us Blair Finnegan MD POINT OF CARE TEST ORDERABL ES Final Result Performing Organization Address [facility] Co de Phone Number [address] [address] * POCT Glucose (05/12/2025 6:17 PM EDT) Glucose, POCT 76 70 - 110 mg/dL [facility] 05/12/2025 6:17 PM EDT 05/12/2025 6:23 PM EDT us Blair Finnegan MD POINT OF CARE TEST ORDERABL ES Final Result Performing Organization Address City/[facility] Co de Phone Number [address] [address] * POCT Glucose (05/12/2025 11:45 AM EDT) Glucose, POCT 102 70 - 110 mg/dL [facility] 05/12/2025 11:4 5 AM EDT 05/12/2025 11:50 AM EDT us Blair Finnegan MD POINT OF CARE TEST ORDERABL ES Final Result Performing Organization Address City/[facility] Co de Phone Number [address] [address] * Vancomycin Resistant Enterococci (VRE), Rectal Screen (05/12/2025 6:01 AM EDT) Special Requests No Special Requests 05/12/2025 5:58 AM EDT [facility] VRE Rectal Culture NEGATIVE FOR VRE 05/13/2025 8:01 AM EDT [facility] Other (Rectal) 05/12/2025 6: 01 AM EDT 05/12/2025 8:40 AM EDT us Blair Finnegan MD MICROBIOLOGY - GENERAL ORDE RABMOISES Final Result Performing Organization Address City/[facility]/ZIP Co de Phone Number [address] [address] * MRSA Nasal Screen (05/12/2025 5:58 AM EDT) Special Requests No Special Requests 05/12/2025 5:58 AM EDT [facility] MRSA Nasal Culture NEGATIVE FOR MRSA 05/13/2025 8:40 AM EDT [facility] Other (Nasal) 05/12/2025 5:5 8 AM EDT 05/12/2025 8:40 AM EDT us Blair Finnegan MD MICROBIOLOGY - GENERAL MEAGAN HERNANDEZ Final Result Performing Organization Address City/[facility]/ZIP Co de Phone Number [address] [address] * POCT Glucose (05/12/2025 5:40 AM EDT) Glucose, POCT 77 70 - 110 mg/dL [facility] 05/12/2025 5:40 AM EDT 05/12/2025 5:41 AM EDT us Blair Finnegan MD POINT OF CARE TEST ORDERABL ES Final Result Performing Organization Address City/[facility]/ZIP Co de Phone Number [address] [address] * (ABNORMAL) CBC (05/12/2025 3:47 AM EDT) WBC 9.42 4.00 - 11.00 K/uL [facility] RBC 4.22(L) 4.50 - 5.90 M/uL [facility] HGB 12.2(L) 13.5 - 17.5 g/dL [facility] HCT 36.9(L) 41.0 - 53.0 % [facility] PLT 141(L) 150 - 450 K/uL [facility] MCV 87.4 80.0 - 100.0 fL [facility] MCH 28.9 27.0 - 31.0 pg [facility] MCHC 33.1 32.0 - 36.0 g/dL [facility] RDW 13.1 11.5 - 14.5 % [facility] MPV 14.0(H) 8.4 - 12.0 fL [facility] NRBC 0.00 0.00 /100 WBCs [facility] ABSOLUTE NRBC 0.00 0.00 K/uL [facility] Blood 05/12/2025 3:47 AM EDT 05/12/2025 3:57 AM EDT us Blair Finnegan MD LAB BLOOD ORDERABLES Final Result Performing Organization Address City/[facility] Co de Phone Number [address] [phone] * Phosphorus (05/12/2025 3:47 AM EDT) PHOSPHORUS 2.8 2.6 - 4.5 mg/dL [facility] Blood 05/12/2025 3:47 AM EDT 05/12/2025 3:57 AM EDT us Blair Finnegan MD LAB BLOOD ORDERABLES Final Result [address] [address] * (ABNORMAL) Magnesium (05/12/2025 3:47 AM EDT) MAGNESIUM 1.2(L) 1.7 - 2.4 mg/dL [facility] Blood 05/12/2025 3:47 AM EDT 05/12/2025 3:57 AM EDT us Blair Finnegan MD LAB BLOOD ORDERABLES Final Result [address] [address] * Basic metabolic panel (05/12/2025 3:47 AM EDT) SODIUM 142 135 - 145 mmol/L [facility] POTASSIUM 3.7 3.4 - 5.0 mmol/L [facility] CHLORIDE 105 98 - 108 mmol/L [facility] CO2 23 23 - 32 mmol/L [facility] BUN 10 8 - 25 mg/dL [facility] CREATININE 1.21 0.60 - 1.30 mg/dL [facility] GLUCOSE 88 70 - 110 mg/dL [facility] CALCIUM 9.0 8.5 - 10.5 mg/dL [facility] EGFR 72 >59 mL/min/1.7 3m2 [facility] Comment:Estimated glomerular filtration rate calculated using the CKD-EPI refit equation. ANION GAP 14 3 - 17 mmol/L [facility] Blood 05/12/2025 3:47 AM EDT 05/12/2025 3:57 AM EDT us Blair Finnegan MD LAB BLOOD ORDERABLES Final Result Performing Organization Address [facility] Co de Phone Number [address] [address] * POCT Glucose (05/12/2025 12:20 AM EDT) Glucose, POCT 84 70 - 110 mg/dL [facility] 05/12/2025 12:2 0 AM EDT 05/12/2025 5:37 AM EDT us Blair Finnegan MD POINT OF CARE TEST ORDERABL ES Final Result Performing Organization Address City/[facility] Co de Phone Number [address] [address] * (ABNORMAL) POCT Glucose (05/11/2025 5:09 PM EDT) Glucose, POCT 123(H) 70 - 110 mg/dL [facility] 05/11/2025 5:09 PM EDT 05/11/2025 5:37 PM EDT Blair Finnegan MD POINT OF CARE TEST ORDERABL ES Final Result Performing Organization Address [facility] Co de Phone Number [address] [address] * Urinalysis w/reflex Urine Culture (05/11/2025 1:29 PM EDT) COLOR Yellow Yellow [facility] CLARITY Clear Clear [facility] GLUCOSE Negative Negative [facility] BILI Negative Negative [facility] KETONES Negative Negative [facility] SPECIFIC GRAVITY 1.010 1.001 - 1.035 [facility] BLOOD Negative Negative [facility] PH 8.0 5.0 - 9.0 [facility] Protein-UA Negative Negative [facility] UROBILINOGEN Negative Negative [facility] NITRITE Negative Negative [facility] Leukocyte esterase, ur Negative Negative [facility] Urine (Urine) 05/11/2025 1:2 9 PM EDT 05/11/2025 2:04 PM EDT Blair Finnegan MD URINE ORDERABLES Final Resu lt Performing Organization Address [facility] Co de Phone Number [address] [address] * POCT Glucose (05/11/2025 12:45 PM EDT) Glucose, POCT 93 70 - 110 mg/dL [facility] 05/11/2025 12:4 5 PM EDT 05/11/2025 12:47 PM EDT Blair Finnegan MD POINT OF CARE TEST ORDERABL ES Final Result Performing Organization Address City/[facility] Co de Phone Number [address] [address] * ABO and Rh (05/11/2025 12:39 PM EDT) Expiration Date of Sample 05/14/2025 11:59 PM [facility] ABO O 05/11/2025 2:25 PM EDT [facility] Rh Positive 05/11/2025 2:25 PM EDT [facility] Resulting Agency [facility] 05/11/2025 12:3 9 PM EDT 05/11/2025 1:24 PM EDT Blood Bank BLOOD BANK TEST ORDERABLES Final Result [address] [address] * Type and Screen (ABO,Rh,Antibody Screen) (05/11/2025 12:39 PM EDT) Expiration Date of Sample 05/14/2025 11:59 PM [facility] ABO O 05/11/2025 2:25 PM EDT [facility] Rh Positive 05/11/2025 2:25 PM EDT [facility] Resulting Agency [facility] Antibody Screen Negative 05/11/2025 2:40 PM EDT [facility] Blood 05/11/2025 12:3 9 PM EDT 05/11/2025 1:24 PM EDT us Blair Finnegan MD BLOOD BANK TEST ORDERABLES Final Result [address] [address] * POCT Glucose (05/11/2025 7:28 AM EDT) Glucose, POCT 104 70 - 110 mg/dL [facility] 05/11/2025 7:28 AM EDT 05/11/2025 7:29 AM EDT us Blair Finnegan MD POINT OF CARE TEST ORDERABL ES Final Result [address] [address] documented in this encounter Visit Diagnoses Diagnosis Pancreatitis without necrosis or infection- Primary documented in this encounter Admitting Diagnoses Diagnosis Pancreatitis without necrosis or infection documented in this encounter Administered Medications Inactive Administered Medications - up to 3 most recent administrations Medication Order MAR Action Action Date Dose Rate Site acetaminophen (OFIRMEV) injection 1,000 mg 1,000 mg, Intravenous, Administer over 15 Minutes, at 400 mL/hr, Every 6 hours, First dose on Wed05/11/25 at 1815, For 4 doses, Do NOT Refrigerate, Please confirm all criteria for IV acetaminophen use are met. What is the indication for using IV APAP? Pain (only permitted if unable to take enteral) New Bag 05/11/2025 11:15 PM EDT 1,000 mg 400 mL/hr New Bag 05/11/2025 5:35 PM EDT 1,000 mg 400 mL/hr acetaminophen (OFIRMEV) injection 1,000 mg 1,000 mg, Intravenous, Administer over 15 Minutes, at 400 mL/hr, Once, On Wed05/12/25 at 0500, For 1 dose, Do NOT Refrigerate, Please confirm all criteria for IV acetaminophen use are met. What is the indication for using IV APAP? Pain (only permitted if unable to take enteral) New Bag 05/12/2025 9:37 AM EDT 1,000 mg 400 mL/ hr acetaminophen (TYLENOL) tablet 650 mg 650 mg, Oral, Every 6 hours, First dose (after last modification) on Wed05/15/25 at 1200 Given 05/15/2025 11:08 AM EDT 650 mg acetaminophen (TYLENOL) tablet 975 mg 975 mg, Oral, Every 6 hours, First dose on Wed05/12/25 at 1815 Given 05/15/2025 1:40 AM EDT 650 mg Given 05/14/2025 5:58 PM EDT 975 mg Given 05/14/2025 11:59 AM EDT 975 mg bisacodyl (DULCOLAX) suppository 10 mg 10 mg, Rectal, Daily, First dose on 05/14/25 at 0900 Given 05/15/2025 2:30 PM EDT 10 mg docusate sodium (COLACE) capsule 100 mg 100 mg, Oral, 2 times daily, First dose on Rufina 05/17/25 at 1130 Given 05/18/2025 8:29 AM EDT 100 mg Given 05/17/2025 8:02 PM EDT 100 mg Given 05/17/2025 10:50 AM EDT 100 mg heparin 5,000 unit/mL injection 5,000 Units 5,000 Units, Subcutaneous, Every 8 hours, First dose on 05/12/25 at 0900 Given 05/18/2025 8:31 AM EDT 5,000 Units Ri ght Arm Given 05/17/2025 11:19 PM EDT 5,000 Units Right Arm Given 05/17/2025 4:47 PM EDT 5,000 Units L eft Arm HYDROmorphone (PF) (DILAUDID) 20 mcg/mL BUPivacaine (PF) 1 mg/mL (0.1%) in PFNS (100 mL) PCEA (Premix CMPD) Epidural, Continuous, Starting on 05/12/25 at 1100, Epidural for PCEA? Yes, Continuous Rate: 8 mL/hr, PCEA patient bolus dose: 2 mL, Lockout Interval: 20 min, One hour dose limit: [calculation = continuous rate + 3x demand dose]: 14 mL New Bag 05/15/2025 1:40 AM EDT 20 mL/hr 20 mL/hr Rate/Dose Verify 05/14/2025 8:00 PM EDT 20 mL/hr 20 mL/h r New Bag 05/14/2025 5:58 PM EDT 8 mL/hr 8 mL/hr HYDROmorphone (PF) (DILAUDID) injection syringe 0.2-0.5 mg 0.2-0.5 mg, Intravenous, Every 5 min PRN, severe pain or 7-10 (on a general 0-10 scale), 2nd line opioid analgesia, Starting on Wed05/11/25 at 1714, For 10 doses, Recovery Room (only), Up to a max total dose of 2 mg. Patient may opt to receive a pain med that is ordered for a lower level of pain Given 05/11/2025 7:36 PM EDT 0.25 mg Given 05/11/2025 7:00 PM EDT 0.25 mg Given 05/11/2025 5:17 PM EDT 0.5 mg HYDROmorphone (PF) 10 mcg/mL BUPivacaine 1 mg/mL (0.1%) in PFNS (100 mL) PCEA (Premix CMPD) Epidural, Continuous, Starting on Wed05/11/25 at 1800, Recovery & Post-op, Epidural for PCEA? Yes, Continuous Rate: 5 mL/hr, PCEA patient bolus dose: 2 mL, Lockout Interval: 20 min, One hour dose limit: [calculation = continuous rate + 3x demand dose]: 11 mL Rate/Dose Verify 05/11/2025 5:55 PM EDT Rate/Dose Verify 05/11/2025 5:29 PM EDT 5 mL/hr 5 mL/hr HYDROmorphone (PF) 10 mcg/mL BUPivacaine 1 mg/mL (0.1%) in PFNS (100 mL) PCEA (Premix CMPD) Epidural, Continuous, Starting on Wed05/11/25 at 1945, Recovery & Post-op, Epidural for PCEA? Yes, Continuous Rate: 6 mL/hr, PCEA patient bolus dose: 2 mL, Lockout Interval: 20 min, One hour dose limit: [calculation = continuous rate + 3x demand dose]: 12 mL New Bag 05/11/2025 7:03 PM EDT HYDROmorphone (PF) 10 mcg/mL BUPivacaine 1 mg/mL (0.1%) in PFNS (100 mL) PCEA (Premix CMPD) Epidural, Continuous, Starting on Wed05/11/25 at 2230, Recovery & Post-op, Epidural for PCEA? Yes, Continuous Rate: 8 mL/hr, PCEA patient bolus dose: 2 mL, Lockout Interval: 20 min, One hour dose limit: [calculation = continuous rate + 3x demand dose]: 14 mL Rate/Dose Verify 05/12/2025 8:33 AM EDT New Bag 05/12/2025 6:46 AM EDT 8 mL/hr 8 mL/hr Rate/Dose Verify 05/12/2025 6:42 AM EDT 8 mL/hr 8 mL/hr insulin lispro (ADMELOG, HumaLOG) subcutaneous injection 0-6 Units 0-6 Units, Subcutaneous, 3 times daily with meals, First dose (after last modification) on Wed05/14/25 at 1700, CORRECTIONAL INSULIN: Give even if patient is NPO/not receiving nutrition. Low dose Blood glucose (mg/dL): Insulin dose Glucose 70-150: 0 unit. Glucose 151-200: 1 unit. Glucose 201-250: 2 units. Glucose 251-300: 3 units. Glucose 301-350: 4 units. Glucose 351-400: 5 units. Glucose >400: 6 units and call RC. For blood glucose < 70 mg/dL call RC AND if patient: 1. Able to take PO, give 15 g of carbohydrate (4 oz fruit juice, regular soda, 8 oz of skim milk, or 3 to 4 glucose tablets) 2. Unable to take PO and PIV PRESENT, administer D50W per prn medication order OR 3. Unable to take PO and NO PIV, call RC/[facility] to obtain order for glucagon Check blood glucose in 15 minutes and repeat if < 80 mg/dL and call RC, Insulin type: Correctional insulin Given 05/18/2025 11:24 AM EDT 2 Units Left Arm Given 05/17/2025 1:18 PM EDT 1 Units Le ft Arm Given 05/16/2025 12:57 PM EDT 1 Units L eft Arm ketorolac (TORADOL) injection 15 mg 15 mg, Intravenous, Once, On Wed05/16/25 at 0815, For 1 dose Given 05/16/2025 9:07 AM EDT 15 mg lactated Ringers infusion 75 mL/hr, Intravenous, Continuous, Starting on Wed05/11/25 at 1815, For 24 hours New Bag 05/12/2025 5:34 PM EDT 75 mL/hr 75 mL/hr New Bag 05/12/2025 6:43 AM EDT 75 mL/hr 75 mL/hr New Bag 05/11/2025 5:35 PM EDT 75 mL/hr 75 mL/hr lactated Ringers infusion 75 mL/hr, Intravenous, Continuous, Starting on Wed05/12/25 at 1815, For 24 hours New Bag 05/13/2025 8:09 AM EDT 75 mL/hr 75 mL/hr New Bag 05/12/2025 5:35 PM EDT 75 mL/hr 75 mL/hr lactated ringers IV Bolus 500 mL 500 mL, Intravenous, Administer over 1 Hours, Once, On Wed05/16/25 at 1545, For 1 dose New 05/16/2025 2:59 PM EDT 500 mL 500 mL/hr lidocaine 4 % 1 patch 1 patch, Transdermal, Administer over 12 Hours, Every 24 hours, First dose on Wed05/14/25 at 1145, Apply to neck and lower back as needed Do not place external heat sources such as heating pads over patches. Patch Applied 05/15/2025 11:04 AM EDT 1 patch Abdomen Patch Applied 05/14/2025 11:59 AM EDT 1 patch Back magnesium sulfate 2 gram/50 mL (4%) in Sterile Water IVPB premix 2 g 2 g, Intravenous, at 100 mL/hr, Once, On Wed05/12/25 at 0900, For 1 dose New 05/12/2025 8:29 AM EDT 2 g 100 mL/hr magnesium sulfate 2 gram/50 mL (4%) in Sterile Water IVPB premix 2 g 2 g, Intravenous, at 100 mL/hr, Every 2 hours scheduled, First dose on Wed05/14/25 at 1000, For 2 doses New 05/14/2025 10:45 AM EDT 2 g 1 00 mL/hr New Bag 05/14/2025 8:52 AM EDT 2 g 100 mL/hr magnesium sulfate 2 gram/50 mL (4%) in Sterile Water IVPB premix 2 g 2 g, Intravenous, at 100 mL/hr, Every 2 hours scheduled, First dose (after last reorder) on Wed05/15/25 at 0815, For 2 doses New 05/15/2025 10:00 AM EDT 2 g 100 mL/hr New 05/15/2025 7:53 AM EDT 2 g 100 mL/hr magnesium sulfate 2 gram/50 mL (4%) in Sterile Water IVPB premix 2 g 2 g, Intravenous, at 100 mL/hr, Once, On Wed05/16/25 at 0815, For 1 dose New 05/16/2025 9:05 AM EDT 2 g 100 mL/hr melatonin tablet 1 mg 1 mg, Oral, Once, On Wed05/15/25 at 2345, For 1 dose Given 05/15/2025 10:55 PM EDT 1 mg melatonin tablet 2 mg 2 mg, Oral, Once, On Wed05/16/25 at 2230, For 1 dose Given 05/16/2025 9:51 PM EDT 2 mg melatonin tablet 5 mg 5 mg, Oral, Once, On Wed05/17/25 at 2045, For 1 dose Given 05/17/2025 8:02 PM EDT 5 mg monobasic and dibasic sodium phosphates (FLEET ENEMA) 19-7 gram/118 mL 1 enema 1 enema, Rectal, Once, On Rufina 05/17/25 at 1130, For 1 dose, Each 133 mL enema bottle delivers 118 mL and contains 4.4 g sodium. Given 05/17/2025 10:50 AM EDT 1 enema naloxone (NARCAN) injection dilution syringe 0.04-0.08 mg 0.04-0.08 mg, Intravenous, As needed, respiratory depression, Starting on 05/12/25 at 1007, For 5 doses, Titrate to RR greater than 10 and/or O2 Sat greater than 90. See institutional policy. Call ordering service and responding clinician. Mix 0.4 mg (1 mL) of naloxone into 9 mL of NS for a final concentration 0.04 mg/mL. nortriptyline (PAMELOR) capsule 75 mg 75 mg, Oral, Nightly, First dose on Wed05/11/25 at 2100 Given 05/17/2025 7:44 PM EDT 75 mg Given 05/16/2025 8:10 PM EDT 75 mg Given 05/15/2025 7:58 PM EDT 75 mg omeprazole (PriLOSEC) capsule 40 mg 40 mg, Oral, Daily before breakfast, First dose on 05/15/25 at 1145, Capsule may be opened and contents added to 1 tablespoon of applesauce (use immediately after adding to applesauce); mixture should not be chewed or warmed. Do NOT crush or chew. Given 05/18/2025 8:27 AM EDT 40 mg Given 05/17/2025 7:32 AM EDT 40 mg Given 05/16/2025 9:05 AM EDT 40 mg ondansetron (PF) (ZOFRAN) injection 4 mg 4 mg, Intravenous, Every 4 hours PRN, nausea, vomiting, Starting on Wed05/11/25 at 1725, For 3 days, If unable to tolerate PO. Given 05/12/2025 9:32 PM EDT 4 mg ondansetron (PF) (ZOFRAN) injection 4 mg 4 mg, Intravenous, Every 4 hours PRN, nausea, vomiting, Starting on Mon 22/25 at 0745, If unable to tolerate PO. ondansetron (ZOFRAN-ODT) disintegrating tablet 4 mg 4 mg, Oral, Every 6 hours PRN, nausea, vomiting, Starting on Wed05/14/25 at 0745 Given 05/15/2025 9:49 PM EDT 4 mg Given 05/14/2025 8:12 AM EDT 4 mg oxyCODONE tablet 10 mg 10 mg, Oral, Every 3 hours PRN, moderate pain or 4-6 (on a general 0-10 scale), Starting on Wed05/15/25 at 1049 Given 05/16/2025 11:26 AM EDT 5 mg Given 05/16/2025 11:22 AM EDT 5 mg Given 05/16/2025 3:28 AM EDT 10 mg oxyCODONE tablet 10-15 mg 10-15 mg, Oral, Every 4 hours PRN, moderate pain or 4-6 (on a general 0-10 scale), Starting on Wed05/16/25 at 1147 Given 05/17/2025 9:20 AM EDT 15 mg Given 05/17/2025 5:17 AM EDT 15 mg Given 05/17/2025 12:21 AM EDT 15 mg oxyCODONE tablet 10-15 mg 10-15 mg, Oral, Every 3 hours PRN, moderate pain or 4-6 (on a general 0-10 scale), Starting on Wed05/17/25 at 1200 Given 05/18/2025 2:57 PM EDT 15 mg Given 05/18/2025 11:25 AM EDT 15 mg Given 05/18/2025 8:26 AM EDT 15 mg oxyCODONE tablet 5 mg 5 mg, Oral, Once, On Wed05/16/25 at 1245, For 1 dose Given 05/16/2025 11:55 AM EDT 5 mg oxyCODONE tablet 5-10 mg 5-10 mg, Oral, Every 4 hours PRN, moderate pain or 4-6 (on a general 0-10 scale), Starting on Wed05/15/25 at 0721 Given 05/15/2025 8:08 AM EDT 10 mg pancrelipase (fynjhe-vjpwmocd-ycpnmpy) (CREON) 24,000-76,000 -120,[address] capsule 72,000 units of lipase 72,000 units of lipase, Oral, 3 times daily with meals, First dose on Wed05/11/25 at 1815 Given 05/18/2025 8:28 AM EDT 72,000 units of lipase Given 05/17/2025 4:47 PM EDT 72,000 units of lipase Given 05/17/2025 1:18 PM EDT 72,000 units of lipase pantoprazole (PROTONIX) injection 40 mg 40 mg, Intravenous, Daily, First dose on Wed05/11/25 at 1815, Reconstitute 40mg vial with 10 mL of Sodium Chloride 0.9% to a concentration of 4 mg/mL. Administer over 2-4 minutes. Flush Line prior to and after administration with NS 0.9%. Given 05/15/2025 7:53 AM EDT 40 mg Given 05/14/2025 8:13 AM EDT 40 mg Given 05/13/2025 8:06 AM EDT 40 mg polyethylene glycol packet 17 g, Oral, Daily, First dose on Wed05/15/25 at 0800, Dissolve and stir one packet of powder (17 g) in 4-8 oz of water or juice. Hold if >2 BM/day Given 05/18/2025 8:29 AM EDT 17 g Given 05/17/2025 7:32 AM EDT 17 g Given 05/16/2025 9:04 AM EDT 17 g potassium chloride in water (KCL) 10 mEq/100 mL IVPB premix 10 mEq, Intravenous, at 100 mL/hr, Every 1 hour, First dose on Wed05/12/25 at 0900, For 3 doses New Bag 05/12/2025 12:05 PM EDT 10 mEq 1 00 mL/hr New Bag 05/12/2025 11:06 AM EDT 10 mEq 100 mL/hr New Bag 05/12/2025 9:26 AM EDT 10 mEq 100 mL/hr potassium chloride SA (KLOR-CON M20) ER tablet 40 mEq 40 mEq, Oral, Once, On Wed05/15/25 at 0815, For 1 dose, Swallow tablets whole, do not crush or chew. Capsules may be opened and contents sprinkled on a spoonful of applesauce or pudding and should be swallowed immediately without chewing. Microencapsulated tablets may be dissolved in 6 ounces of water, stir and administer immediately. Given 05/15/2025 7:53 AM EDT 40 mEq potassium phosphate 30 mmol in sodium chloride 0.9% 500 mL IVPB 30 mmol, Intravenous, Administer over 6 Hours, at 83.3 mL/hr, Once, On Wed05/15/25 at 0815, For 1 dose, Potassium Phosphate 15 mmol contains 22 mEq of K+ New 05/15/2025 10:42 AM EDT 30 mmol 83.3 mL/hr potassium phosphate 30 mmol in sodium chloride 0.9% 500 mL IVPB 30 mmol, Intravenous, Administer over 6 Hours, at 83.3 mL/hr, Once, On Wed05/17/25 at 0830, For 1 dose, Potassium Phosphate 15 mmol contains 22 mEq of K+ 05/17/2025 9:07 AM EDT 30 mmol 83.3 mL/hr rosuvastatin (CRESTOR) tablet 40 mg 40 mg, Oral, Daily, First dose on Wed05/12/25 at 0900 Given 05/18/2025 8:29 AM EDT 40 mg Given 05/17/2025 7:32 AM EDT 40 mg Given 05/16/2025 9:05 AM EDT 40 mg simethicone (MYLICON) chewable tablet 80 mg 80 mg, Oral, Every 6 hours PRN, gas, Starting on Wed05/17/25 at 0744, Chewable sodium phosphate 30 mmol in sodium chloride 0.9% 250 mL IVPB 30 mmol, Intravenous, Administer over 6 Hours, at 41.7 mL/hr, Once, On Wed05/14/25 at 0900, For 1 dose 05/14/2025 11:59 AM EDT 30 mmol 41.7 mL/hr sodium phosphate 30 mmol in sodium chloride 0.9% 250 mL IVPB 30 mmol, Intravenous, Administer over 6 Hours, at 41.7 mL/hr, Once, On Wed05/16/25 at 0815, For 1 dose 05/16/2025 10:27 AM EDT 30 mmol 41.7 mL/hr tiZANidine (ZANAFLEX) tablet 2 mg 2 mg, Oral, Every 8 hours PRN, spasm, Starting on Wed05/17/25 at 0848 Given 05/17/2025 10:03 AM EDT 2 mg tiZANidine (ZANAFLEX) tablet 4 mg 4 mg, Oral, Every 8 hours PRN, spasm, Starting on Wed05/16/25 at 0730 Given 05/16/2025 1:00 PM EDT 4 mg documented in this encounter Active and Recently Administered Medications Times are shown in EDT. Scheduled Medication Order 05/16/2025 05/17/2025 05/18/2025 acetaminophen (TYLENOL) tablet 650 mg 650 mg, Oral, Every 6 hours, First dose (after last modification) on Wed05/15/25 at 1200 0503 (Not Given - Provider: Destiny Patterson RN - Reason: Patient/family refused)1131 (Not Given - Provider: Zahra Leiva RN - Reason: Patient/family refused)1719 (Not Given - Provider: Zahra Leiva RN - Reason: Patient/family refused)2310 (Not Given - Provider: Eliza King RN - Reason: Patient/family refused) 0514 (Not Given - Provider: Eliza King RN - Reason: Patient/family refused)1102 (Not Given - Provider: Zahra Leiva RN - Reason: Patient/family refused)1707 (Not Given - Provider: Zahra Leiva RN - Reason: Patient/family refused)2315 (Not Given - Provider: Eliza King RN - Reason: Patient/family refused) 0500 (Not Given - Provider: Eliza King RN - Reason: Patient/family refused)1128 (Not Given - Provider: Tariq Smith RN - Reason: Patient/family refused) bisacodyl (DULCOLAX) suppository 10 mg 10 mg, Rectal, Daily, First dose on Wed05/14/25 at 0900 0908 (Not Given - Provider: Zahra Leiva RN - Reason: Patient/family refused) 1039 (Not Given - Provider: Zahra Leiva RN - Reason: Order parameters not met - Comment: will plan for fleet enema)1101 (Canceled Entry - Provider: Zahra Leiva RN) 0952 (Not Given - Provider: Tariq Smith RN - Reason: Patient/family refused) docusate sodium (COLACE) capsule 100 mg 100 mg, Oral, 2 times daily, First dose on Rufina 05/17/25 at 1130 1050 (Given - Provider: Zahra Leiva, LAURA)2001 (Given - Provider: Eliza King, LAURA) 0829 (Given - Provider: Tariq Smith, LAURA) heparin 5,000 unit/mL injection 5,000 Units 5,000 Units, Subcutaneous, Every 8 hours, First dose on 05/12/25 at 0900 0000 (Automatically Held - Provider: Marilee Quevedo CNP)0554 (Unheld by provider - Provider: Joselyn Self MD, PhD)0906 (Given - Provider: Zahra Leiva RN)1545 (Given - Provider: Zahra Leiva RN)2335 (Given - Provider: Eliza King RN) 0732 (Given - Provider: Zahra Leiva RN)1647 (Given - Provider: Zahra Leiva RN)2319 (Given - Provider: Eliza King RN) 0831 (Given - Provider: Tariq Smith RN)1518 (Not Given - Provider: Mirela Rai RN - Reason: Contraindicated - Comment: d/cing) insulin lispro (ADMELOG, HumaLOG) subcutaneous injection 0-6 Units 0-6 Units, Subcutaneous, 3 times daily with meals, First dose (after last modification) on 05/14/25 at 1700, CORRECTIONAL INSULIN: Give even if patient is NPO/not receiving nutrition. Low dose Blood glucose (mg/dL): Insulin dose Glucose 70-150: 0 unit. Glucose 151-200: 1 unit. Glucose 201-250: 2 units. Glucose 251-300: 3 units. Glucose 301-350: 4 units. Glucose 351-400: 5 units. Glucose >400: 6 units and call RC. For blood glucose < 70 mg/dL call RC AND if patient: 1. Able to take PO, give 15 g of carbohydrate (4 oz fruit juice, regular soda, 8 oz of skim milk, or 3 to 4 glucose tablets) 2. Unable to take PO and PIV PRESENT, administer D50W per prn medication order OR 3. Unable to take PO and NO PIV, call RC/AGER TENDER to obtain order for glucagon Check blood glucose in 15 minutes and repeat if < 80 mg/dL and call RC, Insulin type: Correctional insulin 0907 (Not Given - Provider: Zahra Leiva RN - Reason: Order parameters not met)1257 (Given - Provider: Zahra Leiva RN - Comment: [phone] (Not Given - Provider: Zahra Leiva RN - Reason: Order parameters not met) 0912 (Not Given - Provider: Zahra Leiva RN - Reason: Order parameters not met)1318 (Given - Provider: Zahra Leiva RN - Comment: [phone] (Not Given - Provider: Zahra Leiva RN - Reason: Order parameters not met) 0802 (Not Given - Provider: Tariq Smith RN - Comment: [id number] (Given - Provider: Tariq Smith RN) ketorolac (TORADOL) injection 15 mg (COMPLETED) 15 mg, Intravenous, Once, On Wed05/16/25 at 0815, For 1 dose 0907 (Given - Provider: Zahra Leiva RN) lactated ringers IV Bolus 500 mL (COMPLETED) 500 mL, Intravenous, Administer over 1 Hours, Once, On Wed05/16/25 at 1545, For 1 dose 1459 (New Bag - Provider: Zahra Leiva RN) lidocaine 4 % 1 patch 1 patch, Transdermal, Administer over 12 Hours, Every 24 hours, First dose on Wed05/14/25 at 1145, Apply to neck and lower back as needed Do not place external heat sources such as heating pads over patches. 1153 (Not Given - Provider: Zahra Leiva RN - Reason: Patient/family refused) 1102 (Not Given - Provider: Zahra Leiva RN - Reason: Patient/family refused) 1115 (Not Given - Provider: Tariq Smith RN - Reason: Patient/family refused) magnesium sulfate 2 gram/50 mL (4%) in Sterile Water IVPB premix 2 g (COMPLETED) 2 g, Intravenous, at 100 mL/hr, Once, On Wed05/16/25 at 0815, For 1 dose 09 (New Bag - Provider: Zahra Leiva RN) melatonin tablet 2 mg (COMPLETED) 2 mg, Oral, Once, On Wed05/16/25 at 2230, For 1 dose 2150 (Given - Provider: Eliza King RN) melatonin tablet 5 mg (COMPLETED) 5 mg, Oral, Once, On Wed05/17/25 at 2045, For 1 dose 2001 (Given - Provider: Eliza King RN) monobasic and dibasic sodium phosphates (FLEET ENEMA) 19-7 gram/118 mL 1 enema (COMPLETED) 1 enema, Rectal, Once, On Wed05/17/25 at 1130, For 1 dose, Each 133 mL enema bottle delivers 118 mL and contains 4.4 g sodium. 1050 (Given - Provider: Zahra Leiva RN - Comment: did not tolerate full dose) nortriptyline (PAMELOR) capsule 75 mg 75 mg, Oral, Nightly, First dose on Wed05/11/25 at 2100 2009 (Given - Provider: Eliza King RN) 1944 (Given - Provider: Eliza King RN) omeprazole (PriLOSEC) capsule 40 mg 40 mg, Oral, Daily before breakfast, First dose on Wed05/15/25 at 1145, Capsule may be opened and contents added to 1 tablespoon of applesauce (use immediately after adding to applesauce); mixture should not be chewed or warmed. Do NOT crush or chew. 0905 (Given - Provider: Zahra Leiva RN) 0732 (Given - Provider: Zahra Leiva RN) 0827 (Given - Provider: Tariq Smith RN) oxyCODONE tablet 5 mg (COMPLETED) 5 mg, Oral, Once, On Wed05/16/25 at 1245, For 1 dose 1155 (Given - Provider: Zahra Leiva, LAURA) pancrelipase (xxjalx-ddzdglsc-pzukm se) (CREON) 24,000-76,000 -120,[address] capsule 72,000 units of lipase 72,000 units of lipase, Oral, 3 times daily with meals, First dose on Wed05/11/25 at 1815 0905 (Given - Provider: Zahra Leiva RN)1257 (Given - Provider: Zahra Leiva RN)1731 (Given - Provider: Zahra Leiva RN) 0732 (Given - Provider: Zahra Leiva RN)1318 (Given - Provider: Zahra Leiva RN)1647 (Given - Provider: Zahra Leiva RN) 0828 (Given - Provider: Tariq Smith RN)1215 (Not Given - Provider: Tariq Smith RN - Reason: Other - Comment: two left over from breakfast, will take w lunch) polyethylene glycol packet 17 g, Oral, Daily, First dose on Wed05/15/25 at 0800, Dissolve and stir one packet of powder (17 g) in 4-8 oz of water or juice. Hold if >2 BM/day 0904 (Given - Provider: Zahra Leiva RN) 0732 (Given - Provider: Zahra Leiva RN) 0829 (Given - Provider: Tariq Smith RN) potassium phosphate 30 mmol in sodium chloride 0.9% 500 mL IVPB (COMPLETED) 30 mmol, Intravenous, Administer over 6 Hours, at 83.3 mL/hr, Once, On Rufina 05/17/25 at 0830, For 1 dose, Potassium Phosphate 15 mmol contains 22 mEq of K+ 0907 (New Bag - Provider: Zahra Leiva RN) rosuvastatin (CRESTOR) tablet 40 mg 40 mg, Oral, Daily, First dose on Wed05/12/25 at 0900 0905 (Given - Provider: Zahra Leiva RN) 0732 (Given - Provider: Zahra Leiva RN) 0829 (Given - Provider: Tariq Smith RN) sodium phosphate 30 mmol in sodium chloride 0.9% 250 mL IVPB (COMPLETED) 30 mmol, Intravenous, Administer over 6 Hours, at 41.7 mL/hr, Once, On Wed05/16/25 at 0815, For 1 dose 1027 (New Bag - Provider: Susan Abreu RN) PRN Medication Order 05/16/2025 05/17/2025 05/18/2025 naloxone (NARCAN) injection dilution syringe 0.04-0.08 mg 0.04-0.08 mg, Intravenous, As needed, respiratory depression, Starting on 05/12/25 at 1007, For 5 doses, Titrate to RR greater than 10 and/or O2 Sat greater than 90. See institutional policy. Call ordering service and responding clinician. Mix 0.4 mg (1 mL) of naloxone into 9 mL of NS for a final concentration 0.04 mg/mL. ondansetron (PF) (ZOFRAN) injection 4 mg(Linked Group 1) 4 mg, Intravenous, Every 4 hours PRN, nausea, vomiting, Starting on Wed05/14/25 at 0745, If unable to tolerate PO. ondansetron (ZOFRAN-ODT) disintegrating tablet 4 mg(Linked Group 1) 4 mg, Oral, Every 6 hours PRN, nausea, vomiting, Starting on Wed05/14/25 at 0745 oxyCODONE tablet 10 mg (CANCELED) 10 mg, Oral, Every 3 hours PRN, moderate pain or 4-6 (on a general 0-10 scale), Starting on Wed05/15/25 at 1049 0328 (Given - Provider: Destiny Patterson RN)1122 (Given - Provider: Zahra Leiva RN)1126 (Given - Provider: Zahra Leiva RN) oxyCODONE tablet 10-15 mg (CANCELED) 10-15 mg, Oral, Every 4 hours PRN, moderate pain or 4-6 (on a general 0-10 scale), Starting on Wed05/16/25 at 1147 1553 (Given - Provider: Zahra Leiva, LAURA)2009 (Given - Provider: Eliza King, LAURA) 0021 (Given - Provider: Eliza King RN)0517 (Given - Provider: Eliza King RN)0920 (Given - Provider: Zahra Leiva RN) oxyCODONE tablet 10-15 mg 10-15 mg, Oral, Every 3 hours PRN, moderate pain or 4-6 (on a general 0-10 scale), Starting on Wed05/17/25 at 1200 1259 (Given - Provider: Zahra Leiva RN)1606 (Given - Provider: Zahra Leiva RN)1944 (Given - Provider: Eliza King, LAURA)2318 (Given - Provider: Eliza King RN) 0826 (Given - Provider: Tariq Smith, LAURA)1125 (Given - Provider: Tariq Smith, RN)1457 (Given - Provider: Tariq Smith RN) simethicone (MYLICON) chewable tablet 80 mg 80 mg, Oral, Every 6 hours PRN, gas, Starting on Wed05/17/25 at 0744, Chewable tiZANidine (ZANAFLEX) tablet 2 mg 2 mg, Oral, Every 8 hours PRN, spasm, Starting on Wed05/17/25 at 0848 1003 (Given - Provider: Zahra Leiva RN) tiZANidine (ZANAFLEX) tablet 4 mg (CANCELED) 4 mg, Oral, Every 8 hours PRN, spasm, Starting on Wed05/16/25 at 0730 1300 (Given - Provider: Zahra Leiva RN) Linked Groups Order Group 1: ondansetron (ZOFRAN-ODT) disintegrating tablet 4 mgJump to med 4 mg, Oral, Every 6 hours PRN, nausea, vomiting, Starting on Wed05/14/25 at 0745 Or ondansetron (PF) (ZOFRAN) injection 4 mgJump to med 4 mg, Intravenous, Every 4 hours PRN, nausea, vomiting, Starting on Wed05/14/25 at 0745, If unable to tolerate PO. 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 It is not the complete legal health record.[facility]
--- NOTE | 2025-05-21 09:09 | MHC.OFFVIS ---
Intake Visit Reasons: f/u Intake Note: Elvin had his surgery at [facility] and was instructed to see Duffy after! Allergies gabapentin (GABAPENTIN) Allergy (Mild, Verified 05/21/25 09:10) RASH famotidine (From Pepcid) Allergy (Unknown, Verified 05/21/25 09:10) RASH pregabalin (From LYRICA) Allergy (Unknown, Verified 05/21/25 09:10) VOMITING pantoprazole (From Protonix) Allergy (Verified 05/21/25 09:10) Rash ibuprofen (From Advil) Adverse Reaction (Unknown, Verified 05/21/25 09:10) STOMACH UPSET morphine Adverse Reaction (Verified 05/21/25 09:10) Headache HPI HPI f/u: Details: 55-year-old male with a past medical of chronic pancreatitis, type 2 diabetes, chronic constipation, and migraines who I am calling for f/u for chronic pancreatitis. RECAP: He had severe epigastric burning pain going into the back for 10 d which was similar to prev attacks of acute pancreatitis. He has had attacks going on for maybe 15 years with index attacks thought to have been due to hypertriglyceridemia >1000 but now this is not an issue. He also had cholecystectomy to see if helped but not really. 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 he does admit to nausea but no vomiting, no recent alcohol or drugs. He denies any runny nose, congestion, cough, lower extremity edema or urinary symptoms including frequency urgency or hematuria. He sees Dr Valdez and has been referred to [facility] for further assessment He has had EUS in the past as well. Ct imaging: acute on chronic pancreatitis. dense calcifications in head and dilated PD noted. He had [place] procedure 05/17 INTERIM: He was d/c'ed recently appetite is poor, but taking small portions he is on ensure right now he is passing stool and gas he is taking lianclotide and ducosate still taking omeprazole advised to open capsule creon if needed EXAM: GENERAL: The patient is well developed and nontoxic, looks relaxed A/P: 1/ Chronic panc s/p [place] PLAN: / - recovering, cont wih ensure, and PPI, creon, avoid greasy and high fat foods PFSH Medical History Chronic pancreatitis Diabetes Kidney stone Pancreatitis Migraine HTN (hypertension) Depression Surgical History S/P laparoscopic cholecystectomy (02/12/21) History of elbow surgery Hx of endoscopy Hx of colonoscopy H/O neck surgery Social History Household Members: Significant Other Housing: Apartment Do you presently have visiting nurse or other home services: No Alcohol intake: never Patient Tobacco Use Status: Never used Tobacco Second Hand Smoke Exposure: No Advance Directives Date on File: 12/19/20 service: No Current occupational status: disabled Telehealth Telehealth Telehealth Platform: veriCAR Location of provider rendering services: practice address Location of patient: address on file Patient Identification confirmed using: Name, : Yes Telehealth method: video Patient verbally consented to treatment: Yes Patient verbally consented to billing insurance company: Yes Patient informed of any privacy concerns related to visit: Yes Minutes spent on Phone/Video with Pt.: 12 Assessment & Plan Assessment & Plan (1) Chronic calcific pancreatitis: Code(s): K86.1 - Other chronic pancreatitis Category: Medical Plan: as above Medications: New food supplemt, lactose-reduced (Ensure oral liquid) 1 ea PO DAILY 120 ea 0RF Coding Level of Care Code Tele Est Pt Level 3 (64735) Diagnoses Chronic calcific pancreatitis K86.1
--- OUTSIDE RECORDS SUMMARY | 2025-05-21 09:48 | XMS_ITS | Clinical Summary ---
Author Organization [facility] Address [address] [facility] [address] [place] [address] Phone Care Team Providers Care Data Center Architect Name Role Phone Tyrell Perry MD Primary Care Provider + [phone] Allergies Active Allergy Reactions Criticality Noted Date Comments Ibuprofen Rash,Pain Medium 03/22/2019 Gabapentin 03/22/2019 Pregabalin 03/22/2019 Morphine Headaches,Other (See Comments),Rash Low 12/21/2024 morphine Famotidine 03/22/2019 Medications rosuvastatin (CRESTOR) 40 MG tablet Take 40 mg by mouth daily. Active zolpidem (AMBIEN) 10 mg tablet Take 10 mg by mouth nightly at bedtime as needed for sleep. Active omeprazole (PRILOSEC) 40 MG capsule Take 40 mg by mouth daily. Active citalopram (CELEXA) 20 MG tablet Take 20 mg by mouth daily. Active SUMAtriptan (IMITREX) 100 MG tablet Take 100 mg by mouth once as needed for migraine. Not to exceed 200 mg/day Active tiZANidine (ZANAFLEX) 2 MG tablet Take 4 mg by mouth 3 (three) times a day. Active pioglitazone (ACTOS) 30 MG tablet Take 30 mg by mouth daily. Active nortriptyline (PAMELOR) 25 MG capsule Take 75 mg by mouth nightly at bedtime. Active fenofibrate (LOFIBRA) 54 MG tablet Take 54 mg by mouth 2 (two) times a day. Active ondansetron (ZOFRAN-ODT) 4 MG disintegrating tablet Take 4 mg by mouth every 8 (eight) hours as needed for nausea. Active pancrelipase, lipase-protease- amylase, (CREON) 36,000-114,000- 180,[address] capsule Take 2 capsules (72,000 units of lipase total) by mouth 3 (three) times a day with meals. Take 1 with snacks 240 capsule 5 Active TRULICITY 4.5 mg/0.5 mL subcutaneous injection INJECT ONE DOSE SUBCUTANEOUSLY ONCE A WEEK Active AIMOVIG AUTOINJECTOR 140 mg/mL subcutaneous injection INJECT 1ML DOSE UNDER SKIN ONCE EVERY 28 DAYS Active acetaminophen (TYLENOL) 500 MG tablet Take 2 tablets (1,000 mg total) by mouth every 8 (eight) hours. - Take every 8 hours for 4 days, then take up to 3 times a day as needed for pain. Active polyethylene glycol (MIRALAX) 17 gram packet Take 17 g by mouth daily. Take daily while on increased dose of pain medication. Active simethicone (MYLICON) 80 mg chewable tablet Take 1 tablet (80 mg total) by mouth every 6 (six) hours as needed (gas pains). Active oxyCODONE 10 mg Tab Partial fill ok. Take 1.5 tabs q 3 hrs prn x 1 day, then 1.5 tabs q 4 hrs prn x 2 days, then 1 tab q 4 hrs prn x 2 days then resume home rx/schedule. 16 tablet Active docusate sodium (COLACE) 100 MG capsule Take 1 capsule (100 mg total) by mouth 2 (two) times a day as needed for mild constipation. Use this medication to prevent constipation while taking pain medication. This medication is available over the counter. Active melatonin 5 mg Tab Take 1 tablet (5 mg total) by mouth nightly at bedtime as needed (insomnia). Active oxyCODONE HCl 10 mg Tab Take 5 mg by mouth every 6 (six) hours as needed. 2024 Discontinued(S top Taking at Discharge) naproxen sodium (ALEVE) 220 MG tablet Take 220 mg by mouth every 12 (twelve) hours as needed for pain (specific location in comments). 2024 Discontinued melatonin 5 mg Tab Take 1 tablet (5 mg total) by mouth nightly at bedtime. 5 Discontinued Active Problems Problem Noted Date Diagnosed Date Pancreatitis without necrosis or infection 05/11 Encounters Date Type Department Care Team Description 05/11/2025 11:48 AM EDT Anesthesia Event [facility] [address] [place] [phone] Ion Vines MD, MSc Tresa Alexis RN 05/11/2025 9:44 AM EDT - 05/11/2025 2:49 PM EDT Surgery [facility] [address] [place] [phone] Nicole Finnegan MD [place] PROCEDURE 05/11/2025 6:28 AM EDT - 05/18/2025 4:20 PM EDT Hospital Encounter [facility] [address] [place] [phone] Nicole Finnegan MD Discharge Disposition: Home or Self Care 05/11/2025 Procedure Pass [facility] [address] [place] [phone] 05/04/2025 4:45 PM EDT Pre-Admission Testing [facility] Pre-Procedure Evaluation Department Please See [place] [phone] Unknown, Arabella, 04/30/2025 10:51 AM EDT - 04/30/2025 11:59 PM EDT Hospital Encounter [address] [address] Nicole Finnegan MD Discharge Disposition: Home or Self Care 04/26/2025 9:14 AM EDT - 04/26/2025 11:59 PM EDT Hospital Encounter [facility] [address] [place] [address] [place] [address] Jailyn Kwon MD Discharge Disposition: Home or Self Care 04/26/2025 8:00 AM EDT Office Visit [facility] [address] [place] [address] 5th [place] [address] Nicole Finnegan MD Cyst of pancreas (Primary Dx); Other chronic pancreatitis 04/26/2025 8:00 AM EDT Office Visit [facility] [address] [facility], 5th [place] [address] Jailyn Kwon MD Chronic calcific pancreatitis (Primary Dx) 04/26/2025 Procedure Pass [facility] [address] [place] [address] 04/26/2025 Orders Only [facility] [address] [place] [address] Mercy Marte Other chronic pancreatitis 04/06/2025 Ancillary Orders [facility] [address] [place] [phone] Unknown, Arabella, 03/20/2025 9:15 AM EDT Telemedicine - audio only [facility] [address] [place] [address], [address] [place] [address] Jailyn Kwon MD Chronic calcific pancreatitis (Primary Dx) from Last 3 Months Immunizations Immunization Administration Dates Next Due COVID-19 (Pre-06/14) Pfizer Vaccine, mRNA, PF ,12/01/2020 Social History Tobacco Use Types Packs/Day Years [...] your housing situation today? I have mary sing 05/12/2025 How many times have you move [...] Orientation Straight 05/13/2025 5: 08 PM EDT Last Filed Vital Signs Vital [...] Mass Index 27.03 05/11/2025 7:18 AM EDT Plan of Treatment Upcoming Encounters Date Type Department Care Team (Late st Contact Info) Description 06/18/2025 11:15 AM EDT Office Visit [facility] [address] [facility], 4th Floor, [address] [place] [address] Nicole Finnegan MD [address] [facility] [address] [place] [phone] [email or web address] 10/31/2025 10:00 AM EDT Office Visit [facility] [address] [facility], 5th [place] [address] Sandip Callejas PA-C [address] [facility] 5 [place] [address] [email or web address] Maintenance Due Date Last Done Comments DEPRESSION SCREENING 1984 HEPATITIS C SCREENING 02/24/1990 HIV ONE-TIME SCREENING (18-65 YEARS) 02/24/1990 COLOGUARD 02/24/2017 COLONOSCOPY 02/24/2017 COLORECTAL CANCER SCREENING 02/24/2017 FIT TEST 02/24/2017 FOBT 02/24/2017 SIGMOIDOSCOPY 02/24/2017 VIRTUAL COLONOSCOPY 02/24/2017 SCREENING FOR DIABETES 05/18/2028 05/18/2025 LIPID PANEL 11/07/2029 11/07/2024, 10/21, 08/31/2019, Additional history exists Adult Td,Tdap Booster 05/09/2034 05/09/2024, 023 ZOSTER VACCINES Completed 03/17/2023, 01/08/2023 PNEUMOCOCCAL VACCINES (50+ years) Completed 07/27/2023, 05/23/2020 COVID-19 VACCINE Completed 05/09/2024, 05/2023, 06/24/2022, Additional history exists INFLUENZA VACCINE Completed 04/24/2025, , 06/01/2023, Additional history exists SMOKING STATUS SCREENING (Once After 26 Yrs) Completed 05/04/2025 HEPATITIS A VACCINES Aged Out No long er eligible based on patient's age to complete this topic HIB VACCINES Aged Out No longer eligi ble based on patient's age to complete this topic MENINGOCOCCAL VACCINES (ACWY) Aged Out No longer eligible based on patient's age to complete this topic MENINGOCOCCAL VACCINES (B) Aged Out N o longer eligible based on patient's age to complete this topic Medical Devices Not on file Procedures Procedure Name Priority Date/Time Associated Diagnosis [...] ADD ON Routine 05/17/2025 7:29 AM EDT LIPASE Routine 05/17/2025 5:10 AM EDT CBC Routine 05/17/2025 5:10 AM EDT PHOSPHORUS Routine 05/17/2025 5:10 AM EDT MAGNESIUM Routine 05/17/2025 5:10 AM EDT BASIC METABOLIC [...] 10:55 AM EDT AMYLASE (FLUID--NOT CSF) Routine 025 10:55 AM EDT POCT GLUCOSE Routine 05/14/2025 [...] AM EDT MRSA NASAL SCREEN Routine 05/12/2025 5:58 AM EDT POCT GLUCOSE Routine 05/12/2025 5:40 AM EDT CBC Routine 05/12/2025 3:47 AM EDT PHOSPHORUS Routine 05/12/2025 3:47 AM EDT MAGNESIUM Routine 05/12/2025 3:47 AM EDT BASIC METABOLIC PANEL Routine 05/12/2025 3:47 AM EDT POCT GLUCOSE Routine 05/12/2025 12:20 AM EDT POCT GLUCOSE Routine 05/11/2025 5:09 PM EDT URINALYSIS W/REFLEX URINE CULTURE Routine 05/11/2025 1:29 PM EDT AIRWAY PLACEMENT Routine 05/11/2025 1:05 PM EDT UT ANAST PANCREAS-JEJUNUM/SIDE-SIDE 05/11/2025 12:52 PM EDT Chronic pancreatitis, unspecified pancreatitis type Special Needs Spyglass lithotripsy POCT GLUCOSE Routine 05/11/2025 12:45 PM EDT ABO AND RH STAT 05/11/2025 12:39 PM EDT TYPE AND SCREEN (ABO,RH,ANTIBODY SCREEN) STAT 05/11/2025 12:39 PM EDT ANES EPIDURAL LDA Routine 05/11/2025 12:20 PM EDT UT INJ INFUS CERV THORAC W/CATH 00095 WITHOUT IMG PERF Routine 05/11/2025 12:20 PM EDT POCT GLUCOSE Routine 05/11/2025 7:28 AM EDT MRI CHOLANGIOPANCREATOGRAPHY (MRCP) WITH AND WITHOUT CONTRAST Routine 04/30/2025 12:24 PM EDT Cyst of pancreas ECG 12-LEAD Routine 04/26/2025 9:29 AM EDT Other chronic pancreatitis CBC Routine 04/26/2025 9:21 AM EDT Other chronic pancreatitis PT-INR Routine 04/26/2025 9:21 AM EDT Other chronic pancreatitis COMPREHENSIVE METABOLIC PANEL Routine 04/26/2025 9:21 AM EDT Other chronic pancreatitis PHOSPHATIDYLETHANOL Routine 04/26/2025 9:21 AM EDT Other chronic pancreatitis LIPID PANEL Routine 08/31/2019 2:16 PM EST Acute pancreatitis, unspecified complication status, unspecified pancreatitis type Chronic pancreatitis, unspecified pancreatitis type Nausea from Last 3 Months or Most Recently Relevant to Health Maintenance Results * (ABNORMAL) POCT Glucose (05/18/2025 10:40 AM EDT) Only the most recent of36 resultswithin the time period is included. Glucose, POCT 208(H) 70 - 110 mg/dL [facility] 05/18/2025 10:4 0 AM EDT 05/18/2025 10:52 AM EDT us Nicole Finnegan MD POINT OF CARE TEST ORDERABL ES Final Result Performing Organization Address City/[facility]/ZIP Co de Phone Number [address] [phone] * Lab Add On: lipase (05/17/2025 7:29 AM EDT) TEST REQUESTED LIPASE [facility] Comments (Chemistry) ADD ON COMPLETE. [facility] 05/17/2025 7:29 AM EDT 05/17/2025 8:50 AM EDT us Marilee Quevedo CNP LAB BLOOD ORDERABLES Fin al Result Performing Organization Address [facility] Co de Phone Number [address] [phone] * (ABNORMAL) CBC (05/17/2025 5:10 AM EDT) Only the most recent of7 resultswithin the time period is included. WBC 5.16 4.00 - 11.00 K/uL [facility] RBC 3.85(L) 4.50 - 5.90 M/uL [facility] HGB 10.8(L) 13.5 - 17.5 g/dL [facility] HCT 32.6(L) 41.0 - 53.0 % [facility] PLT 224 150 - 450 K/uL [facility] MCV 84.7 80.0 - 100.0 fL [facility] MCH 28.1 27.0 - 31.0 pg [facility] MCHC 33.1 32.0 - 36.0 g/dL [facility] RDW 13.3 11.5 - 14.5 % [facility] MPV 11.8 8.4 - 12.0 fL [facility] NRBC 0.00 0.00 /100 WBCs [facility] ABSOLUTE NRBC 0.00 0.00 K/uL [facility] Blood 05/17/2025 5:10 AM EDT 05/17/2025 5:26 AM EDT us Nicole Finnegan MD LAB BLOOD ORDERABLES Final Result Performing Organization Address City/[facility]/ZIP Co de Phone Number [address] [phone] * Phosphorus (05/17/2025 5:10 AM EDT) Only the most recent of6 resultswithin the time period is included. PHOSPHORUS 2.6 2.6 - 4.5 mg/dL [facility] Blood 05/17/2025 5:10 AM EDT 05/17/2025 5:25 AM EDT us Nicole Finnegan MD LAB BLOOD ORDERABLES Final Result Performing Organization Address City/[facility] Co de Phone Number [address] [phone] * Magnesium (05/17/2025 5:10 AM EDT) Only the most recent of6 resultswithin the time period is included. MAGNESIUM 1.7 1.7 - 2.4 mg/dL [facility] Blood 05/17/2025 5:10 AM EDT 05/17/2025 5:25 AM EDT us Nicole Finnegan MD LAB BLOOD ORDERABLES Final Result Performing Organization Address [facility] Co de Phone Number [address] [address] * (ABNORMAL) Lipase (05/17/2025 5:10 AM EDT) LIPASE 9(L) 13 - 60 U/L [facility] 05/17/2025 5:10 AM EDT 05/17/2025 5:25 AM EDT us Joselyn Self MD, PhD LAB BLOOD ORDERABLES F inal Result Performing Organization Address [facility] Co de Phone Number [address] [phone] * Basic metabolic panel (05/17/2025 5:10 AM EDT) Only the most recent of6 resultswithin the time period is included. SODIUM 142 135 - 145 mmol/L [facility] POTASSIUM 3.4 3.4 - 5.0 mmol/L [facility] CHLORIDE 106 98 - 108 mmol/L [facility] CO2 24 23 - 32 mmol/L [facility] BUN 8 8 - 25 mg/dL [facility] CREATININE 0.80 0.60 - 1.30 mg/dL [facility] GLUCOSE 110 70 - 110 mg/dL [facility] CALCIUM 9.2 8.5 - 10.5 mg/dL [facility] EGFR 106 >59 mL/min/1.7 3m2 [facility] Comment:Estimated glomerular filtration rate calculated using the CKD-EPI refit equation. ANION GAP 12 3 - 17 mmol/L [facility] Blood 05/17/2025 5:10 AM EDT 05/17/2025 5:25 AM EDT us Nicole Finnegan MD LAB BLOOD ORDERABLES Final Result Performing Organization Address [facility] Co de Phone Number [address] [phone] * Chemistry Comment (05/14/2025 10:55 AM EDT) [facility] ([facility]istry) [facility] 05/14/2025 10:5 5 AM EDT 05/14/2025 11:30 AM EDT us Marilee Quevedo CNP LAB BLOOD ORDERABLES Fin al Result Performing Organization Address [facility] Co de Phone Number [address] [phone] * Amylase (fluid--not CSF) Other fluid (specify below) (05/14/2025 10:55 AM EDT) FLUID AMYLASE 14 U/L [facility] Other (Other fluid (specify below)) 05/14/2025 10:55 AM EDT 05/14/2025 11:30 AM EDT us Marilee Quevedo TANK WELDER BODY FLUIDS AND STOOLS O RDERABLES Final Result Performing Organization Address [facility] Co de Phone Number [address] [phone] * Vancomycin Resistant Enterococci (VRE), Rectal Screen (05/12/2025 6:01 AM EDT) Special Requests No Special Requests 05/12/2025 5:58 AM EDT [facility] VRE Rectal Culture NEGATIVE FOR VRE 05/13/2025 8:01 AM EDT [facility] Other (Rectal) 05/12/2025 6: 01 AM EDT 05/12/2025 8:40 AM EDT us Nicole Finnegan MD MICROBIOLOGY - GENERAL ORDAriel HERNANDEZ Final Result Performing Organization Address City/[facility]/ZIP Co de Phone Number [address] [phone] * MRSA Nasal Screen (05/12/2025 5:58 AM EDT) Special Requests No Special Requests 05/12/2025 5:58 AM EDT [facility] MRSA Nasal Culture NEGATIVE FOR MRSA 05/13/2025 8:40 AM EDT [facility] Other (Nasal) 05/12/2025 5:5 8 AM EDT 05/12/2025 8:40 AM EDT us Nicole Finnegan MD MICROBIOLOGY - GENERAL MEAGAN HERNANDEZ Final Result [address] [address] * Urinalysis w/reflex Urine Culture (05/11/2025 1:29 PM EDT) COLOR Yellow Yellow [facility] CLARITY Clear Clear [facility] GLUCOSE Negative Negative [facility] BILI Negative Negative [facility] KETONES Negative Negative [facility] SPECIFIC GRAVITY 1.010 1.001 - 1.035 [facility] BLOOD Negative Negative [facility] PH 8.0 5.0 - 9.0 [facility] Protein-UA Negative Negative [facility] UROBILINOGEN Negative Negative [facility] Negative Negative [facility] Leukocyte esterase, ur Negative Negative [facility] Urine (Urine) 05/11/2025 1:2 9 PM EDT 05/11/2025 2:04 PM EDT Nicole Finnegan MD URINE ORDERABLES Final Resu lt [address] [address] * ANES ETT DOUBLE LUMEN - AIRWAY LDA (05/11/2025 1:05 PM EDT) Narrative Kely Serrano MD - 05/11/2025 1:05 PM EDT Kely Serrano MD 05/11/2025 1:42 PM Airway Placement Procedure Note: Patient was not difficult to intubate. Procedure performed by: anesthesiologist and fellow/resident/FORDER OPERATOR Anesthesiologist: Ion Vines MD, MSc Fellow/Resident/FORDER OPERATOR: Kely Serrano MD Airway procedure initiated at:05/11/2025 1:05 PM and ended at. Personal Protective Equipment: Mask: surgical mask Gloves: gloves Mask Ventilation: Quality: easy Airway Placement: Technique: direct laryngoscopy Details: Blade type: Mac Blade size: 3 Direct view: grade 1 Number of attempts: 1 ETT type: cuffed ETT size: 7.0 ETT depth at teeth: 21 Tube position confirmed by: EtCO2 Bite Block: soft Outcomes: Evidence of dental injury? no Complications observed? no Ion Vines MD, MSc [facility] Fi nal Result * ABO and Rh (05/11/2025 12:39 PM EDT) Expiration Date of Sample 05/14/2025 11:59 PM [facility] ABO O 05/11/2025 2:25 PM EDT [facility] Rh Positive 05/11/2025 2:25 PM EDT [facility] Resulting Agency [facility] 05/11/2025 12:3 9 PM EDT 05/11/2025 1:24 PM EDT Blood Bank BLOOD BANK TEST ORDERABLES Final Result [address] [address] * Type and Screen (ABO,Rh,Antibody Screen) (05/11/2025 12:39 PM EDT) Expiration Date of Sample 05/14/2025 11:59 PM [facility] ABO O 05/11/2025 2:25 PM EDT [facility] Rh Positive 05/11/2025 2:25 PM EDT [facility] Resulting Agency [facility] Antibody Screen Negative 05/11/2025 2:40 PM EDT [facility] Blood 05/11/2025 12:3 9 PM EDT 05/11/2025 1:24 PM EDT us Nicole Finnegan MD BLOOD BANK TEST ORDERABLES Final Result [facility] [address] [place] [address] * [place] INJ INFUS CERV THORAC W/CATH 00950 WITHOUT IMG PERF, ANES EPIDURAL LDA (05/11/2025 12:20 PM EDT) Narrative Kely Serrano MD - 05/11/2025 12:20 PM EDT Kely Serrano MD 05/11/2025 4:06 PM Epidural Catheter Placement Procedure Note: Start time: 05/11/2025 12:20 PM Reason for block: epidural performed exclusively for post-op analgesia Performed by: anesthesiologist and fellow/resident/FORDER OPERATOR Anesthesiologist: Ion Vines MD, MSc Fellow/Resident/FORDER OPERATOR: Kely Serrano MD [place] Protocol performed: consent obtained, patient identified with 2 identifiers, correct procedure verified, correct site and laterality confirmed, verified equipment, coagulation status reviewed and implant history reviewed. Procedure details: Patient position: sitting Approach: midline Location: thoracic (1-12) Block type: continuous catheter Level: T7-8 Needle and Epidural Catheter: Needle type: Tuohy Needle gauge: 17 G Number of attempts: 1 Loss of resistance depth: 6.5 WILLI Technique: WILLI saline Needle length: standard Catheter at skin depth: 12.5 Test dose: lidocaine 2% with epinephrine Test dose reaction: negative Outcomes: CSF was not aspirated. Blood was not aspirated Complications? no us Ion Vines MD, MSc [facility] Ed ited Result - Final * MRI CHOLANGIOPANCREATOGRAPHY (MRCP) WITH AND WITHOUT CONTRAST (04/30/2025 12:24 PM EDT) Anatomical Region Laterality Modality Pancreas, Biliary Magnetic Reson ance 05/01/2025 1:27 PM EDT Impressions 05/01/2025 1:37 PM EDT 1. There is dilatation of the pancreas duct, with irregularity of the duct, likely to represent stigmata of chronic pancreatitis. There are additional small cystic lesions identified within the head and uncinate process, possibly representing intraductal papillary mucinous neoplasms versus dilated side branches. Consider 12 month follow-up. 2. Cholecystectomy. 3. Renal cortical cysts. Narrative 05/01/2025 1:37 PM EDT MRI CHOLANGIOPANCREATOGRAPHY (MRCP) WITH AND WITHOUT CONTRAST Referring clinician's provided indication for this examination in Epic: * Pancreatic cyst/pseudocyst TECHNIQUE: Multiplanar MR imaging of the abdomen was performed using T1, T2, fat saturated, and diffusion weighted techniques. 2D and 3D MRCP sequences were performed. Dynamic multiphase imaging was also performed after administration of an intravenous gadolinium contrast agent. COMPARISON: CT abdomen/pelvis dated 2024. Ultrasound liver dated April 11, 2024. Ultrasound liver dated August 19, 2021. MRI/MRCP dated April 23, 2019. FINDINGS: Devices/Tubes/Lines: None. Lower thorax: The heart size is normal without pericardial effusion. No esophageal or paraspinal abnormality. The lung bases are clear. Liver: Slightly undulating surface contour to the liver. No masses. No loss of signal is identified on opposed phase images. No intrahepatic biliary ductal dilatation. Biliary: Surgically absent gallbladder. No extrahepatic biliary ductal dilatation. Spleen: No splenomegaly or focal splenic lesions. Pancreas: The pancreas demonstrates classic ductal morphology. There is dilatation of the pancreas duct measuring up to 8 mm. The duct appears somewhat irregular. There are few dilated side branches identified, particularly within the tail measuring up to 3 mm (image 21, series 4). There are additional small cysts identified within the head and uncinate process which may represent stigmata of chronic pancreatitis, or small intraductal papillary mucinous neoplasm's. One measures 3 mm within the uncinate process (image 30, series 4). No abnormal restricted diffusion are present. No solid pancreas masses. No peripancreatic inflammatory changes. Adrenal Glands: No nodules or thickening. Kidneys/Ureters: No hydronephrosis, masses or perinephric collections. There are a few subcentimeter renal cysts. No ureteral dilation or focal lesion. Bowel: No mechanical bowel obstruction is present. No acute gastric or small bowel abnormality. Unremarkable appearance of the colon. No wall thickening, focal lesions or acute inflammation. The terminal ileum is normal. The appendix is nonvisualized. Peritoneum/Retroperitoneum: No masses, pneumoperitoneum, or fluid. Lymph Nodes: No lymphadenopathy. Vessels: No abdominal aortic aneurysm. Bones/Soft Tissues: No abdominal wall hernia. No masses or collections. Minor degenerative changes, no suspicious lesions. Spinal curvature convexity to the left. Procedure Note Nine, Christian Medley MD - 05/01/2025 MRI CHOLANGIOPANCREATOGRAPHY (MRCP) WITH AND WITHOUT CONTRAST Referring clinician's provided indication for this examination in Epic: *Pancreatic cyst/pseudocyst TECHNIQUE: Multiplanar MR imaging of the abdomen was performed using T1,T2, fat saturated, and diffusion weighted techniques. 2D and 3D MRCPsequences were performed. Dynamic multiphase imaging was also performedafter administration of an intravenous gadolinium contrast agent. COMPARISON: CT abdomen/pelvis dated 2024. Ultrasound liver datedAugust 2023. Ultrasound liver dated August 19, 2021. MRI/MRCP datedSept2018. FINDINGS: Devices/Tubes/Lines: None. Lower thorax: The heart size is normal without pericardial effusion. Noesophageal or paraspinal abnormality. The lung bases are clear. Liver: Slightly undulating surface contour to the liver. No masses. Noloss of signal is identified on opposed phase images. No intrahepaticbiliary ductal dilatation. Biliary: Surgically absent gallbladder. No extrahepatic biliary ductaldilatation. Spleen: No splenomegaly or focal splenic lesions. Pancreas: The pancreas demonstrates classic ductal morphology. There isdilatation of the pancreas duct measuring up to 8 mm. The duct appearssomewhat irregular. There are few dilated side branches identified,particularly within the tail measuring up to 3 mm (image 21, series 4).There are additional small cysts identified within the head and uncinateprocess which may represent stigmata of chronic pancreatitis, or smallintraductal papillary mucinous neoplasm's. One measures 3 mm within theuncinate process (image 30, series 4). No abnormal restricted diffusionare present. No solid pancreas masses. No peripancreatic inflammatorychanges. Adrenal Glands: No nodules or thickening. Kidneys/Ureters: No hydronephrosis, masses or perinephric collections.There are a few subcentimeter renal cysts. No ureteral dilation or focallesion. Bowel: No mechanical bowel obstruction is present. No acute gastric orsmall bowel abnormality. Unremarkable appearance of the colon. No wallthickening, focal lesions or acute inflammation. The terminal ileum isnormal. The appendix is nonvisualized. Peritoneum/Retroperitoneum: No masses, pneumoperitoneum, or fluid. Lymph Nodes: No lymphadenopathy. Vessels: No abdominal aortic aneurysm. Bones/Soft Tissues: No abdominal wall hernia. No masses or collections.Minor degenerative changes, no suspicious lesions. Spinal curvatureconvexity to the left. IMPRESSION: 1. There is dilatation of the pancreas duct, with irregularity of theduct, likely to represent stigmata of chronic pancreatitis. There areadditional small cystic lesions identified within the head and uncinateprocess, possibly representing intraductal papillary mucinous neoplasmsversus dilated side branches. Consider 12 month follow-up. 2. Cholecystectomy. 3. Renal cortical cysts. us Nicole Finnegan MD IMG MR ABDOMEN Final Resul t * ECG 12-LEAD (04/26/2025 9:29 AM EDT) Systolic Blood Pressure [facility] Diastolic Blood Pressure [facility] Ventricular Rate EKG/MIN 84 BPM [facility] Atrial Rate 84 BPM [facility] UT Interval 172 ms [facility] QRS Duration 110 ms [facility] QT Interval 376 ms [facility] QTC Interval 444 ms [facility] P [place] 41 degrees [facility] R Wave [place] 47 degrees [facility] T Wave [place] 13 degrees [facility] 04/26/2025 9:29 AM EDT 04/27/2025 12:36 PM EDT Narrative [facility] - 04/27/2025 12:36 PM EDT LOC: [facility] 5 - GEN SURG DX: PRE-OP REF: DR. NICOLE HAM SINUS RHYTHM INTRAVENTRICULAR CONDUCTION DEFECT NONSPECIFIC ST SEGMENT AND T WAVE ABNORMALITIES NO PREVIOUS ECGS AVAILABLE SUGGEST CLINICAL CORRELATION Electronically Signed in [employer] system. Confirmed by Lili PRAKASH, RBill ([id number]) on 04/27/2025 12:36:11 PM us Nicole Finnegan MD ECG ORDERABLES Final Resul t [facility] * Phosphatidylethanol (04/26/2025 9:21 AM EDT) PEth 16:0/18:1 (POPEth) by LC-MS/MS <10 Cutoff: 10 ng/mL [facility] Comment: (NOTE) Phosphatidylethanol (PEth) homologues result interpretation PEth 16:0/18:1 (POPEth) Less than 10 ng/mL: Not detected 10 - 19 ng/mL: Abstinence or light alcohol consumption (<2 drinks per day for several days a week) 20 - 200 ng/mL: Moderate alcohol consumption (up to 4 drinks per day for several days a week) Greater than 200 ng/mL: Heavy alcohol consumption or chronic alcohol use (at least 4 drinks per day several days a week) (Reference: Alex Richards and Toro Mccloud 2018 J. Forensic Sci) PEth 16:0/18:2 (PLPEth) by LC-MS/MS <10 Cutoff: 10 ng/mL [facility] Comment: (NOTE) PEth 16:0/18:2 (PLPEth) Reference ranges are not well established PEth Interpretation Negative. [facility] Comment: (NOTE) ADDITIONAL INFORMATION This report is intended for use in clinical monitoring and management of patients. It is not intended for use in employment-related testing. This test was developed and its performance characteristics determined by [facility] in a manner consistent with CLIA requirements. This test has not been cleared or approved by the U.S. Food and Drug Administration. 04/26/2025 9:21 AM EDT 04/26/2025 10:37 AM EDT us Nicole Finnegan MD LAB BLOOD ORDERABLES Final Result [facility] [address] [place] [address] * (ABNORMAL) Comprehensive metabolic panel (04/26/2025 9:21 AM EDT) SODIUM 138 135 - 145 mmol/L [facility] POTASSIUM 3.8 3.4 - 5.0 mmol/L [facility] CHLORIDE 98 98 - 108 mmol/L [facility] CO2 27 23 - 32 mmol/L [facility] BUN 12 8 - 25 mg/dL [facility] CREATININE 1.42(H) 0.60 - 1.30 mg/dL [facility] GLUCOSE 99 70 - 110 mg/dL [facility] ALBUMIN 5.0 3.3 - 5.0 g/dL [facility] TOTAL PROTEIN 8.0 6.0 - 8.3 g/dL [facility] CALCIUM 10.8(H) 8.5 - 10.5 mg/dL [facility] ALKALINE PHOSPHATASE 50 45 - 115 U/L [facility] TOTAL BILIRUBIN 0.4 0.0 - 1.0 mg/dL [facility] AST 26 10 - 40 U/L [facility] ALT 14 10 - 55 U/L [facility] GLOBULIN 3.0 1.9 - 4.1 g/dL [facility] EGFR 59(L) >59 mL/min/1. 73m2 [facility] Comment:Estimated glomerular filtration rate calculated using the CKD-EPI refit equation. ANION GAP 13 3 - 17 mmol/L [facility] 04/26/2025 9:21 AM EDT 04/26/2025 10:35 AM EDT Nicole Finnegan MD LAB BLOOD ORDERABLES Final Result [facility] [address] [place] [address] * PT-INR (04/26/2025 9:21 AM EDT) PT 11.2 10.0 - 13.0 sec [facility] INR 1.0 0.9 - 1.1 [facility] 04/26/2025 9:21 AM EDT 04/26/2025 10:18 AM EDT us Nicole Finnegan MD LAB BLOOD ORDERABLES Final Result Performing Organization Address City/[facility]/ZIP Co de Phone Number [facility] [address] [place] [address] * (ABNORMAL) Lipid panel (08/31/2019 2:16 PM EST) HDL 51 mg/dL [facility] Comment: Interpretation <40 mg/dL: Low HDL cholesterol (major risk factor for CHD) Greater than or equal to 60 mg/dL: High HDL cholesterol ( negative risk factor for CHD) HDL - cholesterol is affected by a number of factors, e.g. smoking, excerise, hormones, sex and age. CHOLESTEROL 153 0 - 240 mg/dL [facility] TRIGLYCERIDES 191(H) 30 - 160 mg/dL [facility] LDL 64 50 - 129 mg/dL [facility] Comment: LDL levels in terms of risk for coronary heart disease: <100 mg/dL: Optimal 100-129 mg/dL: Near or above optimal 130-159 mg/dL: Borderline high 160-189 mg/dL: High >190 mg/dL: Very High CARDIAC RISK RATIO 3.0(L) 3.4 - 5.0 C [facility] Blood 08/31/2019 2:16 PM EST 08/31/2019 2:22 PM EST us Sharad Horn MD LAB BLOOD ORDERABLES Final R esult Performing Organization Address City/[facility]/ZIP Co de Phone Number [facility] [address] [place] [address] from Last 3 Months or Most Recently Relevant to Health Maintenance Insurance MEDICARE PART [place] & [place] & B [facility] Advance Directives For more information, please contact: [phone] (9AM - 5PM [facility], Wednesday-Wednesday) * Full Code (Latest Code Status on File) Date Activated Date Inactivated Comments 05/14/2025 4:21 PM Question Answer Comments Code Status Confirmed With: Patient Code Status Communicated To: Inpatient Attending Care Teams Data Center Architect Relationship Specialty Start Date End Date Tyrell Perry MD [address] [place] [id number] [email or web address] PCP - General Family Medicine 03/15/19 Additional Source Comments The information contained in this document represents components of the legal health record. It is not the complete legal health record.[facility]
--- OUTSIDE RECORDS SUMMARY | 2025-05-21 09:48 | XMS_ITS | Encounter Summary ---
Author Organization [facility] Address [address] [place] [address] Phone Care Team Providers Care Windshield Technician Name Role Phone Tyrell Perry MD Primary Care Provider + [phone] Encounter Details Date Type Department Care Team (Latest Contact Info) Description 06/03/2021 Transcribe Orders Virtual Department [address] [place] [address] Immanuel Torres MD [address] [place] [address] [email or web address] Fatty (change of) liver, not elsewhere classified (Primary Dx); Non-alcoholic fatty liver disease Social History Tobacco Use Types Packs/Day Years [...] Description 06/18/2025 11:15 AM EDT Office Visit [facility] General & Gastrointestinal Surgery [address] 4[address], [address] [place] [address] Blair Finnegan MD [address] [place] [id number] [email or web address] 10/31/2025 10:00 AM EDT Office Visit [facility] [address]th [place] [address] Sandip Callejas PA-C [address] [place] [id number] [email or web address] documented as of this encounter Results * US LIVER WITH ELASTOGRAPHY (08/19/2021 9:32 AM EST) Anatomical Region Laterality Modality Abdomen Ultrasound 08/19/2021 2:53 PM EST Impressions 08/19/2021 2:57 PM EST Sonographic findings compatible with fatty infiltration of the liver parenchyma. The IQR to median ratio is less than 15% and the measure of liver stiffness is therefore acceptable. The median shear wave speed is 1.46 m/s. This is less than 1.7 m/s, which in the absence of other known clinical signs, rules out compensated advanced chronic liver disease. RECOMMENDATION: If there are known clinical signs of compensated advanced chronic liver disease, further testing for confirmation could be considered. [employer] IN [facility]TR[employer] CONSENSUS: In the setting of elevated liver function tests, nonfasting, vascular congestion, etc., the stage of liver fibrosis may be overestimated. In some patients with NAFLD, the cut-off values for compensated advanced chronic liver disease may be lower. In causes other than viral hepatitis and NAFLD, the cut-off values are not well established. Narrative 08/19/2021 2:57 PM EST TECHNIQUE: Focused ultrasound evaluation of the liver. Volumetric sweeps were obtained and reviewed. Comparison: Abdomen MRI on September 30, 2013. FINDINGS: LIVER: Diffusely echogenic liver parenchyma is compatible with steatosis. No focal lesions. Main portal vein is patent. ELASTOGRAPHY: Liver stiffness measurements were obtained in the right hepatic lobe on a OpenStudy ultrasound machine. 2D shear wave elastography technique was utilized following SRU guidelines. 10 valid measurements were obtained. Median shear wave speed is: 1.46 m/s. IQR to median ratio: 4.47% (m/s). BILIARY: Gallbladder: Status post cholecystectomy Common bile duct measures 0.4 cm. Others: No right hydronephrosis. Upper aorta and IVC appear unremarkable. Procedure Note Marcie Salinas MD - 08/19/2021 TECHNIQUE: Focused ultrasound evaluation of the liver. Volumetric sweeps wereobtained and reviewed. Comparison: Abdomen MRI on September 30, 2013. FINDINGS: LIVER: Diffusely echogenic liver parenchyma is compatible with steatosis.No focal lesions. Main portal vein is patent. ELASTOGRAPHY: Liver stiffness measurements were obtained in the righthepatic lobe on a OpenStudy ultrasound machine. 2D shear wave elastographytechnique was utilized following SRU guidelines. 10 valid measurements were obtained. Median shear wave speed is: 1.46m/s. IQR to median ratio: 4.47% (m/s). BILIARY: Gallbladder: Status post cholecystectomy Common bile duct measures 0.4 cm. Others: No right hydronephrosis. Upper aorta and IVC appearunremarkable. IMPRESSION: Sonographic findings compatible with fatty infiltration of the liverparenchyma. The IQR to median ratio is less than 15% and the measure of liverstiffness is therefore acceptable. The median shear wave speed is 1.46 m/s. This is less than 1.7 m/s, whichin the absence of other known clinical signs, rules out compensatedadvanced chronic liver disease. RECOMMENDATION: If there are known clinical signs of compensated advanced chronic liverdisease, further testing for confirmation could be considered. SOCIETY OF RADIOLOGISTS IN ULTRASOUND CONSENSUS: In the setting of elevated liver function tests, nonfasting, vascularcongestion, etc., the stage of liver fibrosis may be overestimated. Insome patients with NAFLD, the cut-off values for compensated advancedchronic liver disease may be lower. In causes other than viral hepatitisand NAFLD, the cut-off values are not well established. us Immanuel Torres MD [facility] US ABDOMEN Final Result documented in this encounter Visit Diagnoses Diagnosis Fatty (change of) liver, not elsewhere classified- Primary Non-alcoholic fatty liver disease Fatty (change of) liver, not elsewhere classified Non-alcoholic fatty liver disease documented in this encounter Care Teams Windshield Technician Relationship Specialty Start Date End Date Tyrell Perry MD [place] [address] [email or web address] PCP - General Family Medicine 03/15/19 documented as of this encounter Additional Source Comments The information contained in this document represents components of the legal health record. It is not the complete legal health record.[facility]
--- OUTSIDE RECORDS SUMMARY | 2025-05-21 09:48 | XMS_ITS | Clinical Summary ---
Author Organization [facility] Address [address] [place] [address] Care Team Providers Care Social Media Content Manager Name Role Phone Tyrell Perry Primary Care Provider [phone] Allergies Active Allergy Reactions Criticality Noted Date [...] capsule SMARTSI Capsule(s) By Mouth Every Morning 5 Active FLUoxetine (PROzac) 20 mg capsule SMARTSI Capsule(s) By Mouth Daily 4 Active Trulicity 4.5 mg/0.5 mL injection dose SMARTSI.5 Milligram(s) SUB-Q Once a Week 5 Active citalopram (CeleXA) 20 mg tablet Take 20 mg by mouth daily. Active tiZANidine (ZANAFLEX) 4 mg tablet 4 mg every 6 hours as needed for muscle spasms. Active bisacodyL (Laxative, bisacodyl,) 5 mg EC tablet Take 5 mg by mouth daily as needed for constipation . Active vitamin B complex capsule Take 1 capsule by mouth once a day. Active vitamin D3 25 mcg (1,000 unit) capsule Take 1 capsule by mouth once a day. Active Aimovig Autoinjector 140 mg/mL auto-injector Inject 140 mg under the skin every 30 days. Active fenofibrate (LOFIBRA) 54 mg tablet Take 54 mg by mouth once a day. Active pancrelipase, zactvr-hvbxfdum-sip lase, (Creon) 12,000-38,000 -60,000 unit capsule Take 1 capsule by mouth 3 times a day with meals. Active oxyCODONE IR (ROXICODONE) 10 mg tablet Take 10 mg by mouth every 6 hours as needed. Active SUMAtriptan (IMITREX) 100 mg tablet Take 50 mg by mouth once as needed. Active Encounters Date Type Department Care Team Description 03/21/2025 11:59 PM EDT Anesthesia Event [facility] Operating Room [address] [place] [address] [facility] C Crump [facility] from Last 3 Months Family History Medical [...] 81 01/04/2025 1:49 PM EDT Temperature 36.1 C (97 F) 01/04/2025 1:19 PM EDT Respiratory Rate 14 01/04/2025 1:49 PM EDT Oxygen Saturation 100% 01/04/2025 1:49 PM EDT Inhaled Oxygen Concentration - - Weight 71.7 kg (158 lb) 01/04/2025 11:23 AM EDT Height 162.6 cm (5' 4 ) 01/04/2025 11:23 AM EDT Body Mass Index 27.12 01/04/2025 11:23 AM EDT Plan of Treatment Health Maintenance Due Date Last Done Comments Cologuard 1972 Colon Cancer Screening 1972 Colonoscopy 1972 FOBT / Fit Test 1972 HIV Screening 1972 Hepatitis C Screening 1972 Sigmoidoscopy 1972 Medicare AWV 02/24/1973 Hepatitis B Vaccines (1 of 3 - 19+ 3-dose series) 02/24/1991 Alcohol/Substance Use Screening 08/23/2024 Depression Screening and Follow-Up 08/23/2024 Social Drivers of Health Corrina ual Screening 08/23/2024 Influenza Vaccine (#1) 2025 , 06/01/2023, 06/01/2023, Additional history exists Diabetes Screening 01/05/2028 01/04/2025, 0 11/07/2024, 06/07/2012 DTaP,Tdap,and Td Vaccines (2 - Td or Tdap) 05/09/2034 05/09/2024, 04/22/2023 RSV Vaccine (60+ years old a nd patients) (1 - 1-dose 75+ series) 02/24/2047 Zoster Vaccines Completed 03/17/2023, 01/08/2023 Pneumococcal Vaccine: 50+ Years Completed , 05/23/2020 COVID-19 Vaccine Completed 05/09/2024, 05/2023, 06/24/2022, Additional history exists Procedures * Due to [place] state law, this organization might not be sharing negative HIV tests. Procedure Name Priority Date/Time Associated Diagnosis Comments POCT GLUCOSE Routine 01/04/2025 11:09 AM EDT from Last 3 Months or Most Recently Relevant to Health Maintenance Results * Due to [place] state law, this organization might not be sharing negative HIV tests. * POCT Glucose, interfaced (01/04/2025 11:09 AM EDT) [facility] Signature Glucose, POCT 94 70 - 99 mg/dL 01/04/2025 11:10 AM EDT [facility] Comment: The rubber goods tester water has not determined the efficacy of this test in Critically ill patients. [facility] defines Critically ill patients for the purpose of blood glucose monitoring (BGM) by glucometer, as patients meeting one or more of the following criteria: Hypotension- non-ICU patients (systolic blood pressure Less than 90 mmHg) due to shock Hypotension -ICU patients (Mean Arterial Pressure (MAP) <60 mmHg or systolic [...] POCT ORDERABLES - DEVICE Fi nal Result [facility] [address] [place] [address], from Last 3 Months or Most Recently Relevant to Health Maintenance Insurance [place] Care Teams Social Media Content Manager Relationship Specialty Start Date End Date Tyrell Perry [facility] [place] [address] PCP - General 03/11/17
--- OUTSIDE RECORDS SUMMARY | 2025-05-21 09:48 | XMS_ITS | Encounter Summary ---
Author Organization [facility] Address [address] [address] Phone Care Team Providers Care Driver Utility Worker Name Role Phone Tyrell Perry MD Primary Care Provider + [phone] Encounter Details Date Type Department Care Team (Latest Contact Info) Description 04/05/2024 Transcribe Orders Virtual Department 30 [place] [address] Immanuel Torres MD 31 [place] [address] Fatty (change of) liver, not elsewhere classified (Primary Dx) Social History Tobacco Use Types Packs/Day Years Used Date Smoking Tobacco: Never Smokeless Tobacco: Never Alcohol Use Standard Drinks/Week Comments Never 0 (1 standard drink = 0.6 oz pur e alcohol) Education Answer Date Recorded Are you interested in more education? Not on frandy e 12/18/2022 Are you concerned about learning? Not on file 12/18/2022 No 12/18/2022 No 12/18/2022 Digital Access Answer Date Recorded No 01/16/2023 No 01/16/2023 Reliable internet access at home? Not on file 01/16/2023 Device with a working camera? Not on file Sex and Gender Information Value Date Recorded Sex Assigned at Male 05/13/2025 5:08 PM EDT Legal Sex Male 9:33 PM EDT Gender Identity Male 05/13/2025 5:08 PM EDT Sexual Orientation Straight 05/13/2025 5: 08 PM EDT documented as of this encounter Plan of Treatment Upcoming Encounters Date Type Department Care Team (Late st Contact Info) Description 06/18/2025 11:15 AM EDT Office [place] [facility] [place] 55 [facility], 4th Floor, [address] [place] [address] Blair Finnegan MD 15 [facility] 460 [place] [address] [email or web address] 10/31/2025 10:00 AM EDT Office Visit [facility] [address] [facility], 5th [place] [address] Sandip Callejas PA-C 55 [facility] 5 [place] [address] [email or web address] documented as of this encounter Results * US LIVER WITH ELASTOGRAPHY (04/11/2024 11:40 AM EDT) Anatomical Region Laterality Modality Abdomen Ultrasound 04/11/2024 2:02 PM EDT Impressions 04/11/2024 2:12 PM EDT Increased hepatic echogenicity consistent with hepatocellular disease. This most likely represents hepatic steatosis. No focal liver lesion visualized. The IQR to median ratio is less than 15% and the measure of liver stiffness is therefore acceptable. The median shear wave speed is 1.99 m/s. This is between 1.7-2.1 m/s, which is suggestive of compensated advanced chronic liver disease. RECOMMENDATION: Consider further testing for confirmation of compensated advanced chronic liver disease. [employer]Y OF RADIOLOGISTS IN ULTRASOUND CONSENSUS: In the setting of elevated liver function tests, nonfasting, vascular congestion, etc., the stage of liver fibrosis may be overestimated. In some patients with NAFLD, the cut-off values for compensated advanced chronic liver disease may be lower. In causes other than viral hepatitis and NAFLD, the cut-off values are not well established. Narrative 04/11/2024 2:12 PM EDT US LIVER WITH ELASTOGRAPHY Referring clinician's provided indication for this examination in [facility]: Outside Radiology Order; fatty liver TECHNIQUE: Focused ultrasound evaluation of the liver with elastography. Volumetric sweeps were obtained and reviewed. COMPARISON: 08/11/2021 FINDINGS: LIVER: Diffusely echogenic liver parenchyma is most compatible with steatosis. No focal lesions. ELASTOGRAPHY: 10 valid measurements were obtained. Median shear wave speed is: 1.99 m/s. IQR to median ratio: 5 %. Gallbladder: Surgically absent. Biliary: No intrahepatic biliary ductal dilatation. The common bile duct measures 2 mm. Right kidney measures 11.5 cm in length, and is within normal limits. Procedure Note Bret Flores MD - 04/11/2024 US LIVER WITH ELASTOGRAPHY Referring clinician's provided indication for this examination in [facility]:Outside Radiology Order; fatty liver TECHNIQUE: Focused ultrasound evaluation of the liver with elastography. Volumetricsweeps were obtained and reviewed. COMPARISON: 08/11/2021 FINDINGS: LIVER: Diffusely echogenic liver parenchyma is most compatible withsteatosis. No focal lesions. ELASTOGRAPHY: 10 valid measurements were obtained. Median shear wavespeed is: 1.99 m/s. IQR to median ratio: 5 %. Gallbladder: Surgically absent. Biliary: No intrahepatic biliary ductal dilatation. The common bile duct measures 2 mm. Right kidney measures 11.5 cm in length, and is within normal limits. IMPRESSION: Increased hepatic echogenicity consistent with hepatocellular disease.This most likely represents hepatic steatosis. No focal liver lesionvisualized. The IQR to median ratio is less than 15% and the measure of liverstiffness is therefore acceptable. The median shear wave speed is 1.99 m/s. This is between 1.7-2.1 m/s,which is suggestive of compensated advanced chronic liver disease. RECOMMENDATION: Consider further testing for confirmation of compensated advanced chronicliver disease. SOCIETY OF RADIOLOGISTS IN ULTRASOUND CONSENSUS: In the setting of elevated liver function tests, nonfasting, vascularcongestion, etc., the stage of liver fibrosis may be overestimated. Insome patients with NAFLD, the cut-off values for compensated advancedchronic liver disease may be lower. In causes other than viral hepatitisand NAFLD, the cut-off values are not well established. us Immanuel Torres MD IMG US ABDOMEN Final Result documented in this encounter Visit Diagnoses Diagnosis Fatty (change of) liver, not elsewhere classified- Primary Fatty (change of) liver, not elsewhere classified documented in this encounter Care Teams Driver Utility Worker Relationship Specialty Start Date End Date [facility] [place] [facility] [place] [id number] [email or web address] PCP - General Family Medicine 03/15/19 documented as of this encounter Additional Source Comments The information contained in this document represents components of the legal health record. It is not the complete legal health record.[facility]
--- OUTSIDE RECORDS SUMMARY | 2025-05-21 09:48 | XMS_ITS | Encounter Summary ---
Author Organization [facility] Address [address] [place] [address] Phone Care Team Providers Care Denture Laboratory Technician Name Role Phone Tyrell [place] MD Primary Care Provider + [phone] Tyrell Perry MD Primary Care Provider + [phone] Reason for Referral * Consultation (Within 1 month) - Closed Specialty Diagnoses / Procedures Referred By Contac t Referred To Contact Gastroenterology Diagnoses Acute pancreatitis without infection or necrosis, unspecified pancreatitis type Hypertriglyceridemia Tyrell [place] MD Phone: tel: fax: mailto:[email or web address] Jailyn Ding MD Phone: tel: fax: mailto:[email or web address] Referral ID Status Reason Start Date Expiration Date Visits Re quested Visits Authorized [id number] Closed 03/02/2019 03/01/2020 1 1 Encounter Details Date Type Department Care Team (Latest Contact Info) Description 03/02/2019 Transcribe Orders [facility] 55 [facility], 5th [place] [address] Tyrell [place] MD [address] [place] [address] [email or web address] Acute pancreatitis without infection or necrosis, unspecified pancreatitis type (Primary Dx); Hypertriglyceridemi a Social History Tobacco Use Types Packs/Day Years [...] Description 06/18/2025 11:15 AM EDT Office Visit [facility] General & Gastrointestinal Surgery 55 [facility], 4th Floor, [address] [place] [address] Blair Finnegan MD 15 [facility] 460 [place] [phone] [email or web address] 10/31/2025 10:00 AM EDT Office Visit [facility] 55 [facility], 5th [place] [address] Sandip Callejas PA-C 55 [facility] 5 [place] [address] [email or web address] Scheduled Referrals Name Type Priority Associated Diagnoses Order Schedule Ambulatory referral to [facility] Gastroenterology (Consult Requests Only) Outpatient Referral Routine Acute pancreatitis without infection or necrosis, unspecified pancreatitis type Hypertriglyceridemi a Ordered: 03/02/2019 documented as of this encounter Visit Diagnoses Diagnosis Acute pancreatitis without infection or necrosis, unspecified pancreatitis type- Primary Hypertriglyceridemia Pure hyperglyceridemia documented in this encounter Care Teams Denture Laboratory Technician Relationship Specialty Start Date End Date Tyrell [place] MD [address] [place] [address] [email or web address] PCP - General Family Medicine 06/20/18 03/14/19 Tyrell [place] MD [address] [place] [address] [email or web address] PCP - General Family Medicine 03/15/19 documented as of this encounter Additional Source Comments The information contained in this document represents components of the legal health record. It is not the complete legal health record.[facility]
--- OUTSIDE RECORDS SUMMARY | 2025-05-21 09:48 | XMS_ITS | Encounter Summary ---
Author Organization [facility] Address 399 [facility] [address] [place] [address] Phone Care Team Providers Care Mannequin Wig Maker Name Role Phone Tyrell [place] MD Primary Care Provider + [phone] Tyrell [place] MD Primary Care Provider + [phone] Encounter Details Date Type Department Care Team (Latest Contact Info) Description 06/20/2018 Transcribe Orders [facility] [address] [address] Rangel Harris MD [address] [place] [email or web address] Bloating (Primary Dx) Social History Tobacco Use Types [...] Description 06/18/2025 11:15 AM EDT Office Visit [facility] [place] & [facility] 55 [facility], 4th Floor, [address] [place] [address] Blair Finnegan MD 15 [facility] 460 [place] [phone] [email or web address] 10/31/2025 10:00 AM EDT Office Visit [facility] 55 [facility], 5th [place] [address] Sandip Callejas PA-C [address] [address] [email or web address] documented as of this encounter Results * IgG subclasses (06/20/2018 9:53 AM EDT) IGG 1 555 341 - 894 mg/dL [facility] OF LAB MED AND PAT+ IGG 2 469 171 - 632 mg/dl [facility] MED AND PAT+ IGG 3 44.0 18.4 - 106.0 mg/dl [facility] LAB MED AND PAT+ IGG 4 55.6 2.4 - 121.0 mg/dl [facility] OF LAB MED AND PAT+ TOTAL IGG 1,310 767 - 1,590 mg/dl [facility] OF LAB MED AND PAT+ Blood 06/20/2018 9:53 AM EDT 06/20/2018 9:56 AM EDT us Rangel Harris MD LAB BLOOD ORDERABLES Final Re sult [facility] D[facility] OF LAB MED AND PAT+ [address] [place] [address] * (ABNORMAL) Lipid panel (06/20/2018 9:53 AM EDT) HDL 34 mg/dL [facility] Comment: Interpretation: Risk Level Males Decreased >45 mg/dL Average 40-45 mg/dL Increased <40 mg/dL CHOLESTEROL 112 0 - 240 mg/dL [facility] TRIGLYCERIDES 324(H) 30 - 160 mg/dL [facility] LDL 13(L) 50 - 129 mg/dL [facility] Comment: LDL levels in terms of risk for coronary heart disease: <100 mg/dL: Optimal 100-129 mg/dL: Near or above optimal 130-159 mg/dL: Borderline high 160-189 mg/dL: High >190 mg/dL: Very High CARDIAC RISK RATIO 3.3(L) 3.4 - 5.0 [facility] Blood 06/20/2018 9:53 AM EDT 06/20/2018 9:56 AM EDT us Rangel Harris MD LAB BLOOD ORDERABLES Final Re sult [facility] 30 [place] [address] documented in this encounter Visit Diagnoses Diagnosis Bloating- Primary Flatulence, eructation, and gas pain documented in this encounter Care Teams Mannequin Wig Maker Relationship Specialty Start Date End Date Tyrell [place] MD [address] [place] [address] PCP - General Family Medicine 06/20/18 03/14/19 Tyrell [place] MD [address] [place] [address] PCP - General Family Medicine 03/15/19 documented as of this encounter Additional Source Comments The information contained in this document represents components of the legal health record. It is not the complete legal health record.[facility]
--- OUTSIDE RECORDS SUMMARY | 2025-05-21 09:49 | XMS_ITS | Encounter Summary ---
Author Organization [facility] Address [address] [address] Phone Care Team Providers Care Pot Fluxer Name Role Phone Tyrell [place] MD Primary Care Provider + [phone] Encounter Details Date Type Department Care Team (Late st Contact Info) Description 04/26/2025 Procedure Pass [facility], [address] [address] Social History Tobacco Use Types Packs/Day Years [...] Sign Reading Time Taken Comments Blood Pressure - - Pulse - - Temperature - - Respiratory Rate - - Oxygen Saturation - - Inhaled Oxygen Concentration - - Weight 68 kg (150 lb) 04/26/2025 2:05 PM EDT Height 162.6 cm (5' 4 ) 04/26/2025 2:05 PM EDT Body Mass Index 25.75 04/26/2025 2:05 PM EDT documented in this encounter Plan of Treatment Upcoming Encounters Date Type Department Care Team (Late st Contact Info) Description 06/18/2025 11:15 AM EDT Office [place] [facility] [place] [facility] [address] [facility], 4th Floor, [address] [place] [address] Blair Finnegan MD 15 [facility] 460 [place] [phone] [email or web address] 10/31/2025 10:00 AM EDT Office [place] [facility] 55 [facility], 5th [place] [address] Sandip Callejsa PA-C 55 [facility] 5 [place] [address] [email or web address] documented as of this encounter Visit Diagnoses Not on filedocumented in this encounter Care Teams Pot Fluxer Relationship Specialty Start Date End Date Tyrell [place] MD [address] [place] [address] [email or web address] PCP - General Family Medicine 03/15/19 documented as of this encounter Additional Source Comments The information contained in this document represents components of the legal health record. It is not the complete legal health record.[facility]
--- OUTSIDE RECORDS SUMMARY | 2025-05-21 09:49 | XMS_ITS | Encounter Summary ---
Author Organization [facility] Address 399 [facility] [address] [place] [address] Phone Care Team Providers Care Bread Pan Greaser Name Role Phone Tyrell [place] MD Primary Care Provider + [phone] Encounter Details Date Type Department Care Team (Latest Contact Info) Description 08/31/2019 Transcribe Orders [facility] 10 [facility] 2nd [place] [address] Sharad Horn MD 10 [facility] 2 [place] [address] [email or web address] Acute pancreatitis, unspecified complication status, unspecified pancreatitis type (Primary Dx); Chronic pancreatitis, unspecified pancreatitis type; Nausea Social History Tobacco Use Types Packs/Day Years [...] Description 06/18/2025 11:15 AM EDT Office [place] [facility] [place] [address] [place] [address], 4[address] Floor, [address] [place] [address] Blair Finnegan MD 15 [facility] 460 [place] [address] [email or web address] 10/31/2025 10:00 AM EDT Office [place] [facility] [address] [place] [address], 5th [place] [address] Sandip Callejas PA-C [address] [place] [address] [email or web address] Pending Results Name Type Priority Associated Diagnoses Date /Time Miscellaneous lab test Lab Routine Acute pancreatitis, unspecified complication status, unspecified pancreatitis type Chronic pancreatitis, unspecified pancreatitis type Nausea 08/31/2019 2:16 PM EST documented as of this encounter Results * (ABNORMAL) Lipid panel (08/31/2019 2:16 PM EST) HDL 51 mg/dL [facility] Comment: Interpretation <40 mg/dL: Low HDL cholesterol (major risk factor for CHD) Greater than or equal to 60 mg/dL: High HDL cholesterol ( negative risk factor for CHD) HDL - cholesterol is affected by a number of factors, e.g. smoking, excerise, hormones, sex and age. CHOLESTEROL 153 0 - 240 mg/dL [facility] TRIGLYCERIDES 191(H) 30 - 160 mg/dL [facility] LDL 64 50 - 129 mg/dL [facility] Comment: LDL levels in terms of risk for coronary heart disease: <100 mg/dL: Optimal 100-129 mg/dL: Near or above optimal 130-159 mg/dL: Borderline high 160-189 mg/dL: High >190 mg/dL: Very High CARDIAC RISK RATIO 3.0(L) 3.4 - 5.0 [facility] Blood 08/31/2019 2:16 PM EST 08/31/2019 2:22 PM EST us Sharad Horn MD LAB BLOOD ORDERABLES Final R esult [facility] [address] [place] [address] * Lipase (08/31/2019 2:16 PM EST) LIPASE 33 16 - 63 U/L [facility] Blood 08/31/2019 2:16 PM EST 08/31/2019 2:22 PM EST us Sharad Horn MD LAB BLOOD ORDERABLES Final R esult Performing Organization Address City/State/[facility] Co de Phone Number [address] [address] * (ABNORMAL) Comprehensive metabolic panel (08/31/2019 2:16 PM EST) SODIUM 143 133 - 146 mmol/L [facility] POTASSIUM 3.9 3.3 - 5.1 mmol/L [facility] CHLORIDE 102 96 - 108 mmol/L [facility] CO2 22 21 - 35 mmol/L [facility] BUN 12 6 - 19 mg/dL [facility] CREATININE 1.20 0.5 - 1.5 mg/dL [facility] GLUCOSE 94 70 - 99 mg/dL [facility] ALBUMIN 5.0(H) 3.9 - 4.8 g/dL [facility] TOTAL PROTEIN 8.9(H) 6.5 - 8.0 g/dL [facility] CALCIUM 10.1 8.4 - 10.3 mg/dL [facility] ALKALINE PHOSPHATASE 52 39 - 117 U/L [facility] TOTAL BILIRUBIN 0.4 0.0 - 1.2 mg/dL [facility] AST 46(H) 0 - 37 U/L [facility] ALT 29 0 - 40 U/L [facility] GLOBULIN 3.9 1 - 4.8 g/dL [facility] EGFR 72 >59 mL/min/1.7 3m2 [facility] Comment:If patient is black, multiply result by 1.159. Estimated glomerular filtration rate calculated using the CKD-EPI equation. ANION GAP 23(H) 10 - 20 mmol/L [facility] Blood 08/31/2019 2:16 PM EST 08/31/2019 2:22 PM EST us Sharad Horn MD LAB BLOOD ORDERABLES Final R esult Performing Organization Address City/[facility]/ZIP Co de Phone Number [address] [address] * (ABNORMAL) CBC (08/31/2019 2:16 PM EST) WBC 7.01 3.40 - 11.20 K/uL [facility] RBC 5.01 4.50 - 5.50 M/uL [facility] HGB 14.1 13.0 - 17.0 g/dL [facility] HCT 42.4 40.0 - 51.0 % [facility] PLT 202 130 - 400 K/uL [facility] MCV 84.6 79.0 - 98.0 fL [facility] MCH 28.1 27.0 - 34.8 pg [facility] MCHC 33.3 31.5 - 36.0 g/dL [facility] RDW 13.7 10.8 - 14.6 % [facility] MPV 13.6(H) 9.4 - 12.4 [facility] NRBC 0.00 0.00 /100 WBCs [facility] ABSOLUTE NRBC 0.00 0.00 K/uL [facility] Blood 08/31/2019 2:16 PM EST 08/31/2019 2:22 PM EST us Sharad Horn MD LAB BLOOD ORDERABLES Final R esult Performing Organization Address City/[facility] Co de Phone Number [address] [address] * Amylase (08/31/2019 2:16 PM EST) AMYLASE 89 28 - 100 U/L [facility] Blood 08/31/2019 2:16 PM EST 08/31/2019 2:22 PM EST us Sharad Horn MD LAB BLOOD ORDERABLES Final R esult Performing Organization Address City/[facility]/ZIP Co de Phone Number [address] [address] documented in this encounter Visit Diagnoses Diagnosis Acute pancreatitis, unspecified complication status, unspecified pancreatitis type- Primary Chronic pancreatitis, unspecified pancreatitis type Nausea Nausea alone documented in this encounter Care Teams Bread Pan Greaser Relationship Specialty Start Date End Date Tyrell [place] MD [address] [place] [address] [email or web address] PCP - General Family Medicine 03/15/19 documented as of this encounter Additional Source Comments The information contained in this document represents components of the legal health record. It is not the complete legal health record.[facility]
--- OUTSIDE RECORDS SUMMARY | 2025-05-21 09:49 | XMS_ITS | Encounter Summary ---
Author Organization [facility] Address [address] [place] [address] Phone Care Team Providers Care Residential Appliance Repair Technician Name Role Phone Tyrell [place] MD Primary Care Provider + [phone] Encounter Details Date Type Department Care Team (Late st Contact Info) Description 05/11/2025 Procedure Pass [facility] PERIOPERATIVE DEPT [address] [place] [address] Social History Tobacco Use Types Packs/Day Years [...] PM EDT documented as of this encounter Functional Status * Calculated C-SSRS Risk Score (Lifetime/Recent) Answer Date of Assessment Author No Risk Indicated 05/12/2025 5:00 AM EDT Aby Tian, LAURA * Dukes Suicide Severity Rating Scale (Screener/Recent Self-Report) Question Answer Date of Assessment Author 1. Wish to be (Past 1 Month) No 05/12/2025 5:00 AM EDT Aby Tian RN 2. Non-Specific Active Suici duncan Thoughts (Past 1 Month) No 05/12/2025 5:00 AM EDT Aby Tian, RN 6. Suicidal Behavior (Lifetime) No 5:00 AM EDT Aby Tian, LAURA documented as of this encounter Plan of Treatment Upcoming Encounters Date Type Department Care Team (Late st Contact Info) Description 06/18/2025 11:15 AM EDT Office Visit [facility] General & Gastrointestinal Surgery [address] [place] [address], 4th Floor, [address] [place] [address] Blair Finnegan MD [address] [facility] [address] [place] [address] [email or web address] 10/31/2025 10:00 AM EDT Office Visit [facility] 55 [facility], 5th [place] [address] Sandip Callejas PA-C [address] [address] [email or web address] documented as of this encounter Visit Diagnoses Not on filedocumented in this encounter Care Teams Residential Appliance Repair Technician Relationship Specialty Start Date End Date Tyrell [place] MD [address] [place] [address] [email or web address] PCP - General Family Medicine 03/15/19 documented as of this encounter Additional Source Comments The information contained in this document represents components of the legal health record. It is not the complete legal health record.[facility]
--- OUTSIDE RECORDS SUMMARY | 2025-05-21 09:49 | XMS_ITS | Encounter Summary ---
Author Organization [facility] Address [address] [facility] [address] [place] [phone] Phone Care Team Providers Care Diabetes Solutions Specialist Name Role Phone Tyrell Perry MD Primary Care Provider + [phone] Encounter Details Date Type Department Care Team (Late st Contact Info) Description 03/27/2019 Procedure Pass [facility] MRI, Mejia [address] [facility], 2nd [place] [address] Social History Tobacco Use Types Packs/Day Years [...] Description 06/18/2025 11:15 AM EDT Office Visit [facility] General & Gastrointestinal Surgery [address] [facility], 4th Floor, [address] [place] [address] Blair Finnegan MD [address] [facility] [address] [place] [phone] [email or web address] 10/31/2025 10:00 AM EDT Office Visit [facility] [address] [facility] 5th [place] [address] Sandip Callejas PA-C [address] [place] [phone] [email or web address] documented as of this encounter Visit Diagnoses Not on filedocumented in this encounter Care Teams Diabetes Solutions Specialist Relationship Specialty Start Date End Date Tyrell Perry [facility] [place] [address] [email or web address] PCP - General Family Medicine 03/15/19 documented as of this encounter Additional Source Comments The information contained in this document represents components of the legal health record. It is not the complete legal health record.[facility]
--- OUTSIDE RECORDS SUMMARY | 2025-05-21 09:49 | XMS_ITS | Encounter Summary ---
Author Organization [facility] Address [address] [address] Phone Care Team Providers Care Electrical Line Worker Name Role Phone Tyrell Perry MD Primary Care Provider + [phone] Encounter Details Date Type Department Care Team (Late Contact Info) Description 04/26/2025 Orders Only [facility] EKG LAB VIRTUAL DEPARTMENT [address] [place] [address] [phone] Mercy Marte [address] [place] [phone] [email or web address] Other chronic pancreatitis Social History Tobacco Use Types Packs/Day Years [...] Encounters Date Type Department Care Team (Late Contact Info) Description 06/18/2025 11:15 AM EDT Office Visit [facility] [address] [facility], 4th Floor, [address] [place] [address] Blair Finnegan MD 15 [facility] [address] [place] [phone] [email or web address] 10/31/2025 10:00 AM EDT Office Visit [facility] [address] [facility], 5th [place] [address] Sandip Callejas PA-C 55 [facility] 5 [place] [address] [email or web address] documented as of this encounter Procedures Procedure Name Priority Date/Time Associated Diagnosis Comments ECG 12-LEAD Routine 04/26/2025 9:29 AM EDT Other chronic pancreatitis documented in this encounter Results * ECG 12-LEAD (04/26/2025 9:29 AM EDT) Systolic Blood Pressure [facility] Diastolic Blood Pressure [facility] Ventricular Rate EKG/MIN 84 BPM [facility] Atrial Rate 84 BPM [facility] FL Interval 172 ms [facility] QRS Duration 110 ms [facility] QT Interval 376 ms [facility] QTC Interval 444 ms [facility] P [place] 41 degrees [facility] R Wave [place] 47 degrees [facility] T Wave [place] 13 degrees [facility] 04/26/2025 9:29 AM EDT 04/27/2025 12:36 PM EDT Narrative [facility] - 04/27/2025 12:36 PM EDT LOC: [facility] 5 - GEN SURG DX: PRE-OP REF: DR. BLAIR HAM SINUS RHYTHM INTRAVENTRICULAR CONDUCTION DEFECT NONSPECIFIC ST SEGMENT AND T WAVE ABNORMALITIES NO PREVIOUS ECGS AVAILABLE SUGGEST CLINICAL CORRELATION us Balir Finnegan MD ECG ORDERABLES Final Resul t [facility] documented in this encounter Visit Diagnoses Diagnosis Other chronic pancreatitis documented in this encounter Care Teams Electrical Line Worker Relationship Specialty Start Date End Date Tyrell Perry MD [facility] [place] [address] [email or web address] PCP - General Family Medicine 03/15/19 documented as of this encounter Additional Source Comments The information contained in this document represents components of the legal health record. It is not the complete legal health record.[facility]
--- OUTSIDE RECORDS SUMMARY | 2025-05-21 09:49 | XMS_ITS | Encounter Summary ---
Author Organization [facility] Address [address] [place] [address] Care Team Providers Care Resident Advisor Name Role Phone Tyrell Perry Primary Care Provider [phone] Encounter Details Date Type Department Care Team (Late st Contact Info) Description 11/08/2024 myChart Message Intial Department [address] [place] [phone] Mychart, Generic Provider [address] [place], [place] [phone] Questionnaire Submission Social History Tobacco Use Types Packs/Day Years Used Date Smoking Tobacco: Never Assessed Sex and Gender Information Value Date Recorded Sex Assigned at Male 09/18/2024 4:11 PM EST Legal Sex Male 5:34 AM EDT Gender Identity Male 09/18/2024 4:11 PM EST Sexual Orientation Choose not to disclose 2024 1:34 PM EDT documented as of this encounter Plan of Treatment Not on file documented as of this encounter Visit Diagnoses Not on filedocumented in this encounter Care Teams Resident Advisor Relationship Specialty Start Date End Date Tyrell Perry [address] [place] [address] PCP - General 03/11/17 documented as of this encounter
== END 2025-05-21 14:03 | disposition home or self-care (01) ==
LOC: HO.HGI 09:09
PROVIDERS: PCP Family Medicine; Visit Provider Internal Medicine Gastroenterology
DX: K86.1 Other chronic pancreatitis (principal)
CPT/HCPCS: 99213

== ENCOUNTER 2025-08-02 12:51 | Inpatient (IN) | payer MEDICARE, MEDICAID, SELFPAY ==
[2025-08-02] VITALS (7 sets, daily range): BP systolic 110–124; BP diastolic 61–79; PULSE 85–100; RESP 12–18; TEMP 36.4–36.6; O2SAT 95–99; BMI 26.5; BMI 26.6
--- NOTE | ~2025-08-02 | CT_ITS ---
EXAMINATION: CT ABDOMEN PELVIS WITH IV CONTRAST HISTORY: upper abd pain, recent puestow procedure COMPARISON: Radius CT of the abdomen and pelvis September 2024 TECHNIQUE: CT scan of the abdomen and pelvis was performed following administration of 85 mL Omnipaque 350 using standard departmental protocol. Coronal and sagittal reformatted images were generated and reviewed. This CT exam was performed with one or more of the following dose reduction techniques: automated exposure control, adjustment of the mA and/or kV according to patient size, use of iterative reconstruction technique. DLP: 515 mGy-cm FINDINGS: LOWER CHEST: The visualized lung bases are clear. There is no pleural effusion. CARDIOVASCULATURE: The heart is normal in size. There is no pericardial effusion. LIVER: The liver is normal in size and contour. No liver mass is identified. The hepatic and portal veins are patent. GALLBLADDER / BILE DUCTS: Cholecystectomy. There is no intra or extrahepatic biliary ductal dilatation. SPLEEN: The spleen is normal in size. No focal splenic lesion is identified. PANCREAS: 1.5 cm low-attenuation area in the body of the pancreas for example axial image 173 series 4 and coronal reconstructed image 31. Small calcifications in the uncinate process of the head of the pancreas suggestive of chronic pancreatitis. There is a small amount of fluid surrounding the head of the pancreas and fat stranding. It is difficult to exclude acute pancreatitis as well. The main pancreatic duct does not appear as dilated as seen on September 2024 exam.. ADRENAL GLANDS: Within normal limits. KIDNEYS/RETROPERITONEUM: Multiple left renal stones, largest measuring 3 x 5 mm in the lower pole. Small low-attenuation 5 mm lesion in the upper pole of the right kidney. This is difficult to accurately characterize due to small size but probably represents a small cyst. No hydronephrosis, ureteral dilatation or ureteral stone. No renal masses are identified. LYMPH NODES: No abdominal or pelvic lymphadenopathy. VASCULATURE: No aneurysm. Splenic and portal veins are patent. MESENTERY/PERITONEUM: Small amount of peripancreatic fluid and fat stranding described above. There is no free intraperitoneal gas. STOMACH: Normal SMALL BOWEL: Postsurgical changes to the small bowel with surgical staple line in the left upper quadrant. Fluid-filled split loops of small bowel probably representing an ileus. COLON: Fluid-filled proximal large bowel probably representing an ileus. APPENDIX: Normal. URINARY BLADDER/PELVIC ORGANS: The urinary bladder is unremarkable. The prostate gland is slightly enlarged measuring 4 x 5 cm. BONES / SOFT TISSUES: Postsurgical changes to the anterior abdominal wall. Degenerative changes of the spine and hips. CT/CT abdomen pelvis w IV con IMPRESSION: Chronic pancreatitis. Mild fat stranding and small amount of fluid surrounding the head of the pancreas questionable for acute pancreatitis. There is also a 1.5 cm low-attenuation area in the body of the pancreas. Imaging follow-up recommended. Fluid-filled distal small bowel and proximal large bowel probably representing an ileus. Multiple nonobstructing left renal stones. Electronically signed by: Susan Chan MD 08/02/2025 03:02 PM [facility]
--- NOTE | ~2025-08-02 | XR_ITS ---
EXAMINATION: XR CHEST CLINICAL INFORMATION: chest pain COMPARISON: December 11, 2020. TECHNIQUE: PA and lateral views FINDINGS: Poor inspiration. No consolidation, pleural effusion or pneumothorax. Cardiomediastinal silhouette size is normal. Multilevel thoracolumbar spondylosis. Metallic plate lower cervical spine no fully included in the [id number]. XR/XR chest 2V IMPRESSION: No acute airspace disease. Electronically signed by: Connor Morel MD 08/02/2025 01:57 PM EST
--- NOTE | 2025-08-02 12:53 | ED.GENADULT ---
HPI - General Adult General Chief complaint: Chest Pain Stated complaint: lt abd pain, back pain x3d, chest pain Time Seen by Provider: 08/02/25 12:53 Source: patient, RN notes reviewed and old records reviewed Mode of arrival: ambulatory Limitations: no limitations History of Present Illness ED Provider: Arabella HPI narrative: Patient is a 55-year-old male with history of chronic pancreatitis, s/p Puestow procedure at [facility] in April with Dr. Blair Lau, type 2 diabetes, chronic constipation, and migraines presenting to the emergency department with complaint of epigastric pain radiating to his back since last night. He also reports diarrhea. Denies any vomiting or constipation. Denies fevers. States pain is severe and feels typical of his pancreatitis. States pain is also radiating to his chest. Denies any hematochezia or melena. MD complaint: abdominal pain Related Data Home Medications ?Medication ?Instructions ?Recorded ?Confirmed fenofibrate 54 mg tablet 2 tab PO DAILY 12/08/20 10/09/24 nortriptyline 25 mg capsule 75 mg PO BEDTIME 12/08/20 10/10/24 ondansetron 4 mg disintegrating 1 tab PO Q8H PRN Nausea And 12/08/20 10/09/24 tablet Vomiting oxycodone 10 mg tablet 1 tab PO Q6H Pain 12/08/20 10/09/24 rosuvastatin 40 mg tablet 1 tab PO DAILY 12/08/20 10/09/24 sumatriptan succinate 100 mg tablet 100 mg PO DAILY PRN Migraine 12/08/20 10/09/24 Headache tizanidine 4 mg tablet 1 tab PO Q8H PRN muscle spasms 12/08/20 10/09/24 zolpidem 10 mg tablet 10 mg PO BEDTIME Insomnia 12/08/20 10/09/24 cholecalciferol (vitamin D3) 25 25 mcg PO DAILY 11/27/21 10/09/24 mcg (1,000 unit) capsule docusate sodium 100 mg capsule 100 mg PO DAILY Constipation 05/28/22 10/09/24 betamethasone valerate 0.1 % lotion 1 appl topical BID PRN CTCL flares 10/09/24 10/09/24 on scalp clobetasol 0.05 % topical cream 1 appl topical BID PRN CTCL flares 10/09/24 10/09/24 dulaglutide 4.5 mg/0.5 mL 4.5 mg subcut FR 10/09/24 10/09/24 subcutaneous pen injector (Trulicity) erenumab-aooe 140 mg/mL 140 mg subcut QMONTH 10/09/24 10/09/24 subcutaneous auto-injector (Aimovig Autoinjector) ketoconazole 2 % topical cream 1 appl topical BID PRN CTCL flares 10/09/24 10/09/24 yybnyi-cpawevog-ebwpwjo(pork)12,000-38,000-60,000 2 cap PO TIDWM 10/09/24 10/09/24 unit capsule,del rel (Creon) omeprazole 40 mg capsule,delayed 1 cap PO DAILY@0630 10/09/24 10/10/24 release pioglitazone 30 mg tablet 30 mg PO DAILY 10/09/24 10/09/24 vitamin B complex 1 tab PO DAILY 10/09/24 10/09/24 qmqlsn-qjybljkw-ylfxhek cap PO 05/21/25 (pork)36,000-114,000-180k unit capsule,del rel (Creon) Previous Rx's ?Medication ?Instructions ?Recorded sucralfate 1 gram tablet 1 g PO QIDACHS #240 tabs 10/14/24 food supplemt, lactose-reduced 1 ea PO BID #60 ea 06/11/25 (Ensure Active High Protein oral liquid) linaclotide 290 mcg capsule 290 mcg PO DAILY #90 caps 07/11/25 Allergies Allergy/AdvReac Type Severity Reaction Status Date / Time gabapentin (GABAPENTIN) Allergy Mild RASH Verified 08/02/25 13:06 famotidine (From Pepcid) Allergy Unknown RASH Verified 08/02/25 13:06 pregabalin (From LYRICA) Allergy Unknown VOMITING Verified 08/02/25 13:06 pantoprazole (From Protonix) Allergy Rash Verified 08/02/25 13:06 ibuprofen (From Advil) AdvReac Unknown STOMACH Verified 08/02/25 13:06 UPSET morphine AdvReac Headache Verified 08/02/25 13:06 Review of Systems Review of Systems: as per HPI Yes all other systems are reviewed and are negative Constitutional: Constitutional: Reports as per HPI PMFSH Past Medical History Medical History Chronic pancreatitis Diabetes Kidney stone Pancreatitis Migraine HTN (hypertension) Depression Surgical History S/P laparoscopic cholecystectomy (02/12/21) History of elbow surgery Hx of endoscopy Hx of colonoscopy H/O neck surgery Social History Social History Household Members: Significant Other Housing: Apartment Do you presently have visiting nurse or other home services: No Alcohol intake: never Patient Tobacco Use Status: Never used Tobacco Smoked in Last 30 Days: No Second Hand Smoke Exposure: No Use of substances other than those prescribed or required for medical reasons: No Advance Directives: Yes Advance Directives on File: Yes Advance Directives Date on File: 12/19/20 Do you have a plan to hurt others: No Plan service: No Current occupational status: disabled Physical Exam ED Vital Signs: Vital Signs - 24 hr 08/02/25 12:57 08/02/25 13:05 08/02/25 15:19 Temperature 97.6 F 97.6 F 97.6 F Pulse Rate 99 100 92 Respiratory Rate 18 16 14 Blood Pressure 124/72 124/72 110/66 Pulse Oximetry 99 96 97 Oxygen Delivery Method Room Air Room Air Room Air BMI result Body Mass Index 26.5 Const General: cooperative, healthy appearing and no acute distress Orientation/consciousness: oriented to person, oriented to place, oriented to time and patient oriented x3 Limitations: no limitations HENMT Head: Yes normocephalic and Yes atraumatic Ears: external ears normal General nose exam: Normal external nose present Face and sinus: Yes face symmetric Mouth: oropharynx normal and moist mucous membranes Throat: Yes uvula midline Eyes Pupils: Equal, round and reactive pupils present Neck Neck: Yes normal visual inspection and Yes supple Resp Effort & Inspection: normal respiratory effort and able to speak in complete sentences Auscultation: clear to auscultation bilaterally Cardio Rate: regular rate Rhythm: regular rhythm Heart sounds: S1 normal heart sound present and S2 normal heart sound present GI Palpation (GI): Soft to palpation and Tenderness to palpation present (GI) in the epigastrum, in the LUQ and in the RUQ Auscultation: normoactive bowel sounds Abdomen image:  1. Well-healed surgical incision over epigastric area General: Yes no CVA tenderness Back/Spine/Pelvis Back: no CVA tenderness Skin General skin exam: elasticity normal and turgor normal Neuro General: oriented to person, oriented to place, oriented to time, patient oriented x3, moves all extremities, no focal motor deficits and CN's II-XI intact bilaterally Cranial nerves: Yes Equal, round and reactive pupils present Cognition (Neuro): normal cognition Extrem General: Yes full ROM, Yes no pedal edema and Yes no calf tenderness Psych Mental Status: mental status grossly normal Affect: normal affect Thought process: Normal thought process present Medications Administered Discontinued Medications Generic Name Dose Route Start Last Admin Trade Name Freq PRN Reason Stop Dose Admin Hydromorphone HCl 1 mg 08/02/25 13:42 08/02/25 14:17 Hydromorphone Hcl 1 Mg/Ml Syringe IVPUSH 08/02/25 13:43 1 mg ONCE ONE Administration Protocol Lactated Ringer's 1,000 mls @ 999 mls/hr 08/02/25 13:45 08/02/25 14:18 Lr IV 08/02/25 14:45 999 mls/hr .Q1H1M MACKENZIE Administration Magnesium Sulfate 2 gm in 50 mls @ 150 mls/hr 08/02/25 13:58 08/02/25 15:10 Magnesium Sulfate/H2o IV 08/02/25 14:17 Infused ONCE ONE Infusion Iohexol 100 ml 08/02/25 14:34 08/02/25 14:34 Iohexol 350 Mg/Ml 100 Ml Infus..Btl IV 08/02/25 14:35 85 ml ONCE ONE Administration Ondansetron HCl 4 mg 08/02/25 13:42 08/02/25 14:18 Ondansetron Hcl 4 Mg/2 Ml Vial IVPUSH 08/02/25 13:43 4 mg ONCE ONE Administration Medical Decision Making Medical Decision Making MDM Narrative: Patient is a 55-year-old male with history of chronic pancreatitis, s/p Puestow procedure at [facility] in April with Dr. Blair Lau, type 2 diabetes, chronic constipation, and migraines presenting to the emergency department with complaint of epigastric pain radiating to his back since last night. On exam patient is awake, A+Ox3, VS WNL, afebrile, normal neurological exam without focal deficits, physical exam findings as above. Given reported symptoms and physical exam findings, initial differential includes but is not limited to acute on chronic pancreatitis, postop complication, pancreatic necrosis or abscess, perforated ulcer, pancreatic pseudocyst, choledocholithiasis, PUD. Labs notable for hypomagnesemia, normal transaminases and T bili, alk-phos. 2 g of Mag ordered. Patient also medicated for pain with Dilaudid, Zofran and a liter of LR. CT is showing chronic pancreatitis with mild fat stranding and small amount of fluid surrounding the head of the pancreas questionable for acute pancreatitis. My interpretation is in agreement with the radiologist's interpretation. Dr. Duffy saw patient in the ED, is recommending admission for IV fluids and pain control. Case discussed with MALIK Deras hospitalist who accepts admission to medicine. Differential Diagnosis Differential Diagnoses: The differential diagnosis associated with the presentation includes As per [facility] Admission/Observation Consideration of admission/observation: Escalation of care including admission/observation considered Consult Healthcare Provider Management of the patient was discussed with: Anime Artist (Dr. Duffy) Lab Data [facility] Lab Attestation statement: I reviewed the patient's lab results. as per [facility] 08/02/25 13:28 08/02/25 13:28 Labs: Lab Results 08/02/25 08/02/25 Range/Units 13:28 13:29 WBC 10.0 (4.8-10.8) X10*3/uL RBC 4.95 (4.60-5.80) X10*6/uL Hgb 13.9 L (14.0-18.0) g/dl Hct 41.9 L (42.0-52.0) % MCV 84.6 (80.0-98.0) fL MCH 28.1 (27.0-33.0) pg MCHC 33.2 (31.0-36.0) g/dl RDW 13.1 (11.0-16.0) % Plt Count 174 (160-400) X10*3/uL MPV 13.7 H (9.4-12.4) fL Immature Gran % (Auto) 0.3 (0.0-0.4) % Neut % (Auto) 60.1 (45-73) % Lymph % (Auto) 29.8 (20-40) % [place] % (Auto) 8.7 (2-11) % Eos % (Auto) 0.7 (0-4) % Baso % (Auto) 0.4 (0-2) % Lymph # (Auto) 3.0 (1.2-4.9) X10*3/uL [place] # (Auto) 0.9 (0.1-1.2) X10*3/uL Eos # (Auto) 0.1 (0.0-0.4) X10*3/uL Baso # (Auto) 0.0 (0.0-0.2) X10*3/uL Abs Immat Gran (auto) 0.03 (0.00-0.03) X10*3/uL Absolute Neuts (auto) 6.0 (2.0-8.3) x10*3/uL Absolute Nucleated RBC 0.000 (0.0-0.012) X10*3/uL Nucleated RBC % (auto) 0.0 (0.0-0.2) /100WBC PT 12.5 (11.2-13.5) SEC INR 1.0 (0.9-1.1) Sodium 139 (135-145) mmol/L Potassium 3.9 (3.3-5.1) mmol/L Chloride 105 (96-108) mmol/L Carbon Dioxide 23 (22-29) mmol/L Anion Gap 15 (12-20) BUN 13 (9-16) mg/dL Creatinine 1.30 (0.5-1.4) mg/dL Estim Creat Clear Calc 55.0 Estimated GFR 58 Random Glucose 85 (60-115) mg/dL Calcium 10.9 H D (8.4-10.2) mg/dL Magnesium 1.4 L* (1.6-2.6) mg/dL Total Bilirubin 0.5 (0.0-1.0) mg/dL AST 32 (5-37) U/L ALT 30 (0-40) U/L Alkaline Phosphatase 68 (39-117) U/L Troponin I High Sens < 2.7 (<3.5-35.0) ng/L Total Protein 8.7 H (6.5-8.0) g/dL Albumin 5.2 H (3.5-5.0) g/dL Triglycerides 115 (<150) mg/dL Lipase 11 (8-78) U/L Influenza Type A (PCR) NEGATIVE (Negative) Influenza Type B (PCR) NEGATIVE (Negative) RSV RNA Qual (PCR) NEGATIVE (Negative) SARS-CoV-2 RNA (RT-PCR) NEGATIVE (Negative) Independent Interpretation I performed an independent interpretation of an: CT Scan Interpretation: CT is showing chronic pancreatitis with mild fat stranding and small amount of fluid surrounding the head of the pancreas questionable for acute pancreatitis. Radiology Impression Discussion of test interpretation with radiology: I have reviewed the radiologist's reading. Radiologist Impression: CT/CT abdomen pelvis w IV con IMPRESSION: Chronic pancreatitis. Mild fat stranding and small amount of fluid surrounding the head of the pancreas questionable for acute pancreatitis. There is also a 1.5 cm low-attenuation area in the body of the pancreas. Imaging follow-up recommended. Fluid-filled distal small bowel and proximal large bowel probably representing an ileus. Multiple nonobstructing left renal stones. External Record Review External record reviewed: Inpatient record, Office record and Outpatient record Critical Care Time Critical Care Time Critical Care Time: Yes Total Critical Care Time: 44 Attestation: I have personally provided critical care time exclusive of time spent on separately billable procedures. Time includes review of lab data, radiology results, discussion with consultants, and monitoring for potential decompensation. Intervention performed as documented. Discharge Plan Discharge Patient Disposition: Admitted As Inpatient Print Language: Tristanian
--- NOTE | 2025-08-02 12:55 | ECG_ITS ---
Test Reason : CHEST PAIN Blood Pressure : */* mmHG Vent. Rate : 98 BPM Atrial Rate : 98 BPM P-R Int : 156 ms QRS Dur : 102 ms QT Int : 342 ms P-R-T Axes : 52 72 28 degrees QTcB Int : 436 ms Normal sinus rhythm Normal ECG When compared with ECG of 09-Oct-2024 18:25, No significant change was found Referred By: Tiny Bell Electronically Signed By: JEISON BAUTISTA MD
[2025-08-02 13:45] LABS: Hematocrit 41.9 % (42.0-52.0); Hemoglobin 13.9 g/dl (14.0-18.0); Imm Gran Abs Auto 0.03 X10*3/uL (0.00-0.03); Imm Gran Pct Auto 0.3 % (0.0-0.4); Lymphocytes Absolute Auto 3.0 X10*3/uL (1.2-4.9); Mean Corpuscular HGB Conc 33.2 g/dl (31.0-36.0); Mean Corpuscular Hemoglobin 28.1 pg (27.0-33.0); Mean Corpuscular Volume 84.6 fL (80.0-98.0); NRBC Abs Auto 0.000 X10*3/uL (0.0-0.012); NRBC Pct Auto 0.0 /100WBC (0.0-0.2); Red Blood Count 4.95 X10*6/uL (4.60-5.80)
[2025-08-02 13:46] LABS: Platelet Count 174 X10*3/uL (160-400); White Blood Count 10.0 X10*3/uL (4.8-10.8)
[2025-08-02 13:49] LABS: Triglycerides 115 mg/dL (<150)
[2025-08-02 13:54] LABS: Alanine Aminotransferase 30 U/L (0-40); Albumin Level 5.2 g/dL (3.5-5.0); Alkaline Phosphatase 68 U/L (39-117); Anion Gap 15 (12-20); Aspartate Amino Transferase 32 U/L (5-37); Blood Urea Nitrogen 13 mg/dL (9-16); Calcium 10.9 mg/dL (8.4-10.2); Carbon Dioxide 23 mmol/L (22-29); Chloride 105 mmol/L (96-108); Creatinine Clr Calc Pharmacy 55.0; Estimated Glomerular Filt Rate 58; Lipase 11 U/L (8-78); Potassium 3.9 mmol/L (3.3-5.1); Sodium 139 mmol/L (135-145); Total Protein 8.7 g/dL (6.5-8.0)
[2025-08-02 13:58] LABS: Magnesium 1.4 mg/dL (1.6-2.6)
[2025-08-02 14:01] LABS: INTERNATIONAL NORM RATIO 1.0 (0.9-1.1); Prothrombin Time 12.5 SEC (11.2-13.5)
[2025-08-02 14:06] LABS: Troponin-I High Sensitivity < 2.7 ng/L (<3.5-35.0)
[2025-08-02 14:18] LABS: Resp Syncy Virus RNA Qual PCR NEGATIVE (Negative); SARS COV2 PCR INHOUSE NEGATIVE (Negative)
[2025-08-02] MEDS: Lactated Ringers 1,000 ML 999 ML IV (14:18)
[2025-08-02] MEDS: Magnesium Sulfate/H2O 2 GM/50 ML PIGGYBACK IV ×2 (14:18→19:35)
--- NOTE | 2025-08-02 14:32 | PM.GICN ---
History of Present Illness Data of Consult Service Date: 08/02/25 Primary Care Provider: Alfa Saeed MD HPI Reason for consult: abdominal pain 55-year-old male with history of chronic pancreatitis, [place] [facility] type 2 diabetes, chronic constipation, and migraines who I am seeing for assessment for abdominal pain The patient said he had 1-2 d hx of sudden onset severe pressure like epigastric pain 7/10 in severity, with radiation to the back and the right shoulder associated with non bloody emesis and nausea. He also noted diarrhea bt no blood or melena in stools. He said this feels like his prior pancreatitis attacks. He also feels cold sweats and chills, denies sick contacts, no cough, sputum, sore throat or rashes. He has noted chest discomfort as well. Labs with nml LFT and neg lipase, neg trop ECG and CXR without acute findings. Review of Systems Review of Systems: Constitutional : chills ENT/Mouth : No sore throat, No Rhinorrhea Eyes: No Swelling, No Redness Cardiovascular : No Chest Pain, No SOB, No Edema Respiratory : No Cough, No Sputum, No Wheezing Gastrointestinal : see HPI Genitourinary : NO Dysuria, No Urinary Frequency, No Hematuria, No Urgency Musculoskeletal : no joint pain, No Myalgias, No Joint Swelling Skin : No Skin Lesions, No rash Neuro : No Weakness, No Numbness, No Dizziness, No Headache Psych : No Anxiety/Panic, No Depression Heme/Lymph: No Bruising, No Lymphadenopathy Endocrine : No Polyuria, No Polydipsia All other systems reviewed and are negative. [facility] Past Medical History Medical History Chronic pancreatitis Diabetes Kidney stone Pancreatitis Migraine HTN (hypertension) Depression Family History Pertinent family history: no FH of pancreatitis Surgical History Surgical History S/P laparoscopic cholecystectomy (02/12/21) History of elbow surgery Hx of endoscopy Hx of colonoscopy H/O neck surgery Social History Social History Household Members: Significant Other Housing: Apartment Do you presently have visiting nurse or other home services: No Alcohol intake: never Patient Tobacco Use Status: Never used Tobacco Second Hand Smoke Exposure: No Advance Directives Date on File: 12/19/20 service: No Current occupational status: disabled Meds Allergies Allergy/AdvReac Type Severity Reaction Status Date / Time gabapentin (GABAPENTIN) Allergy Mild RASH Verified 08/02/25 13:06 famotidine (From Pepcid) Allergy Unknown RASH Verified 08/02/25 13:06 pregabalin (From LYRICA) Allergy Unknown VOMITING Verified 08/02/25 13:06 pantoprazole (From Protonix) Allergy Rash Verified 08/02/25 13:06 ibuprofen (From Advil) AdvReac Unknown STOMACH Verified 08/02/25 13:06 UPSET morphine AdvReac Headache Verified 08/02/25 13:06 Active Medications: Current Medications Lactated Ringer's (Lr) 1,000 mls @ 999 mls/hr IV .Q1H1M MACKENZIE Stop: 08/02/25 14:45 Last Admin: 08/02/25 14:18 Dose: 999 mls/hr Home Medications ?Medication ?Instructions ?Recorded ?Confirmed ?Last Taken ?Type fenofibrate 54 mg tablet 2 tab PO DAILY 12/08/20 08/02/25 08/02/25 History nortriptyline 25 mg capsule 75 mg PO BEDTIME 12/08/20 08/02/25 Unknown History ondansetron 4 mg disintegrating 1 tab PO Q8H PRN Nausea And 12/08/20 08/02/25 Unknown History tablet Vomiting oxycodone 10 mg tablet 1 tab PO Q6H Pain 12/08/20 08/02/25 08/02/25 History rosuvastatin 40 mg tablet 1 tab PO DAILY 12/08/20 08/02/25 08/02/25 History sumatriptan succinate 100 mg tablet 100 mg PO DAILY PRN Migraine 12/08/20 08/02/25 Unknown History Headache tizanidine 4 mg tablet 1 tab PO Q8H PRN muscle spasms 12/08/20 08/02/25 Unknown History zolpidem 10 mg tablet 10 mg PO BEDTIME Insomnia 12/08/20 08/02/25 Unknown History cholecalciferol (vitamin D3) 25 25 mcg PO DAILY 11/27/21 08/02/25 08/02/25 History mcg (1,000 unit) capsule docusate sodium 100 mg capsule 100 mg PO BID PRN Constipation 05/28/22 08/02/25 Unknown History clobetasol 0.05 % topical cream 1 appl topical BID PRN CTCL flares 10/09/24 08/02/25 Unknown History dulaglutide 4.5 mg/0.5 mL 4.5 mg subcut FR 10/09/24 08/02/25 08/02/25 History subcutaneous pen injector (Trulicity) erenumab-aooe 140 mg/mL 140 mg subcut QMONTH 10/09/24 08/02/25 07/12/25 History subcutaneous auto-injector (Aimovig Autoinjector) omeprazole 40 mg capsule,delayed 1 cap PO DAILY@0630 10/09/24 08/02/25 08/02/25 History release pioglitazone 30 mg tablet 30 mg PO DAILY 10/09/24 08/02/25 08/02/25 History vitamin B complex 1 tab PO DAILY 10/09/24 08/02/25 08/02/25 History zvdgkq-zurtahlr-tviqaru(pork)12,000-38,000-60,000 1 cap PO TIDWM 08/02/25 08/02/25 08/02/25 History unit capsule,del rel (Creon) Physical Exam Exam: Exam: EXAM: GENERAL: The patient is well developed and nontoxic. VITAL SIGNS:see workflow HEENT: Nonicteric sclerae, PERRLA, EOMI. Oropharynx clear. Moist mucous membranes. Conjunctivae appear well perfused. No thyroid mass. CHEST: Chest wall is nontender. HEART: Regular rate and rhythm without murmurs. LUNGS: Clear to auscultation bilaterally. ABDOMEN: Soft, positive bowel sounds, tender epigastrium, no organomegaly.no flank tenderness SKIN: No rash, no excessive bruising, petechiae, or purpura. NEUROLOGIC: Cranial nerves II-XII intact without motor/sensory deficit. Psych: normal affect Vital Signs: Vital Signs: Last Vital Signs Temp 97.6 F 08/02/25 13:05 Pulse 100 08/02/25 13:05 Resp 16 08/02/25 13:05 BP 124/72 08/02/25 13:05 Pulse Ox 96 08/02/25 13:05 O2 Del Method Room Air 08/02/25 13:05 BMI result Body Mass Index 26.5 Results Labs 08/03/25 05:21 08/06/25 05:35 Labs: Short CBC 08/02/25 Range/Units 13:28 WBC 10.0 (4.8-10.8) X10*3/uL Hgb 13.9 L (14.0-18.0) g/dl Hct 41.9 L (42.0-52.0) % Plt Count 174 (160-400) X10*3/uL BMP 08/02/25 13:28 Sodium 139 Potassium 3.9 Chloride 105 Carbon Dioxide 23 BUN 13 Creatinine 1.30 Calcium 10.9 H D Liver Function 08/02/25 Range/Units 13:28 Total Bilirubin 0.5 (0.0-1.0) mg/dL AST 32 (5-37) U/L ALT 30 (0-40) U/L Alkaline Phosphatase 68 (39-117) U/L Albumin 5.2 H (3.5-5.0) g/dL Assessment and Plan (1) Epigastric abdominal pain: Status: Acute Plan 1/ Sudden onset epigstric pain, could be pancreatitis, even with nml lipase, ddx: infectious gastroenteritis, PUD Plan: 1/ consider CT imaging with and without contrast to eval pancreas 2/ fluids and analgesia - Po diet as tolerated or just clears 3/ cont with creon and can give IV PPI for the meantime Procedures Date of Service Date of Service: 08/07/25
[2025-08-02] MEDS: iohexoL 350 MG/ML 100 ML INFUS..BTL IV (14:34)
--- NOTE | 2025-08-02 16:42 | P.HPHOSP_ITS ---
History of Present Illness Date of Service: 08/02/25 Attending physician on admission: [facility] Chief Complaint: abdominal pain This is a 55-year-old male with history of chronic pancreatitis who presents to the emergency department with abdominal pain. Patient has history of hypertriglyceridemia induced pancreatitis and history of pancreatic stone status post Puestow procedure in April of this year. He reports chronic pain that waxes and wanes. For the past 3 days he has been having more severe abdominal pain associated with nausea and diarrhea. Pain is described as epigastric with radiation through to his back and is worse when lying flat. Due to the increased severity of his pain he came to the emergency department for evaluation. In the emergency department CT scan showed acute on chronic pancreatitis with possible ileus. Lipase level normal. Review of Systems 2 Review of Systems: Yes all other systems are reviewed and are negative Constitutional: Constitutional: Reports chills and Denies fever(s) Cardiovascular: Cardiovascular: Denies chest pain and Denies palpitations Gastrointestinal: Gastrointestinal: Reports nausea and Denies vomiting Endocrine: Endocrine: Denies palpitations [facility] Medical History Chronic pancreatitis Diabetes Kidney stone Pancreatitis Migraine HTN (hypertension) Depression Surgical History S/P laparoscopic cholecystectomy (02/12/21) History of elbow surgery Hx of endoscopy Hx of colonoscopy H/O neck surgery Social History Household Members: Significant Other Housing: Apartment Do you presently have visiting nurse or other home services: No Alcohol intake: never Patient Tobacco Use Status: Never used Tobacco Smoked in Last 30 Days: No Second Hand Smoke Exposure: No Use of substances other than those prescribed or required for medical reasons: No Advance Directives: Yes Advance Directives on File: Yes Advance Directives Date on File: 12/19/20 Do you have a plan to hurt others: No Plan service: No Current occupational status: disabled Meds Allergies Allergy/AdvReac Type Severity Reaction Status Date / Time gabapentin (GABAPENTIN) Allergy Mild RASH Verified 08/02/25 13:06 famotidine (From Pepcid) Allergy Unknown RASH Verified 08/02/25 13:06 pregabalin (From LYRICA) Allergy Unknown VOMITING Verified 08/02/25 13:06 pantoprazole (From Protonix) Allergy Rash Verified 08/02/25 13:06 ibuprofen (From Advil) AdvReac Unknown STOMACH Verified 08/02/25 13:06 UPSET morphine AdvReac Headache Verified 08/02/25 13:06 Active Medications: Current Medications Acetaminophen (Acetaminophen 325 Mg Tablet) 650 mg PO Q6H PRN PRN Reason: Pain, Mild 1-3,fever,headache Calcium Carbonate (Calcium Carbonate 750 Mg Tab.Chew) 750 mg PO Q4H PRN PRN Reason: Heartburn Magnesium Hydroxide (Milk Of Magnesia 30 Ml Oral.Susp) 30 ml PO DAILY PRN PRN Reason: Constipation Melatonin (Melatonin 3 Mg Tablet) 6 mg PO BEDTIME PRN PRN Reason: Insomnia Sodium Chloride (0.9 % Sodium Chloride Flush 3 Ml Syringe) [facility] Medications ?Medication ?Instructions ?Recorded ?Confirmed ?Last Taken ?Type fenofibrate 54 mg tablet 2 tab PO DAILY 12/08/2009/23 Unknown History nortriptyline 25 mg capsule 75 mg PO BEDTIME 12/08/20 10/10/24 Unknown History ondansetron 4 mg disintegrating 1 tab PO Q8H PRN Nause a And 12/08/20 10/09/24 Unknown History tablet Vomiting oxycodone 10 mg tablet 1 tab PO Q6H Pain 12/08/20 0 10/09/24 Unknown History rosuvastatin 40 mg tablet 1 tab PO DAILY 12/08/2009/23 Unknown History sumatriptan succinate 100 mg tablet 100 mg PO DAILY CO N Migraine 12/08/20 10/09/24 Unknown History Headache tizanidine 4 mg tablet 1 tab PO Q8H PRN muscle spas ms 12/08/20 10/09/24 Unknown History zolpidem 10 mg tablet 10 mg PO BEDTIME Insomnia 10/09/24 Unknown History cholecalciferol (vitamin D3) 25 25 mcg PO DAILY 10/09/24 Unknown History mcg (1,000 unit) capsule docusate sodium 100 mg capsule 100 mg PO BID PRN Const ipation 05/28/22 10/09/24 Unknown History clobetasol 0.05 % topical cream 1 appl topical BID PRN CTCL flares 10/09/24 10/09/24 Unknown History dulaglutide 4.5 mg/0.5 mL 4.5 mg subcut FR 10/09/2410/06/24 History subcutaneous pen injector (Trulicity) erenumab-aooe 140 mg/mL 140 mg subcut QMONTH 5 10/09/24 09/11/24 History subcutaneous auto-injector (Aimovig Autoinjector) ketoconazole 2 % topical cream 1 appl topical BID PRN CTCL flares 10/09/24 10/09/24 Unknown History omeprazole 40 mg capsule,delayed 1 cap PO DAILY@0630 0 10/09/24 10/10/24 Unknown History release pioglitazone 30 mg tablet 30 mg PO DAILY 10/09/2409/23 Unknown History vitamin B complex 1 tab PO DAILY 10/09/2409/23 Unknown History Physical Exam 2 Vital Signs and Narrative: Vital Signs: Last Vital Signs Temp 97.8 F 08/02/25 16:05 Pulse 92 08/02/25 16:05 Resp 12 08/02/25 16:05 BP 116/65 08/02/25 16:05 Pulse Ox 96 08/02/25 16:05 O2 Del Method Room Air 08/02/25 16:05 BMI result Body Mass Index 26.5 Const: General: cooperative, alert and awake Nutritional Appearance: a verage body habitus Orientation/consciousness: patient oriented x3 Resp: Effort & Inspection: normal respiratory effort, able to speak in complete sentences, no respiratory distress and no use of accessory muscles Cardio: Rate: regular rate GI: Other: epigastric tenderness; no distention Palpation (GI): Soft to palpation Neuro: General: patient oriented x3, No moves all extremities and No CN's II- XI intact bilaterally Extrem: General: No pedal edema Results Labs 08/02/25 13:28 08/02/25 13:28 Labs: Laboratory Results - last 24 hr 08/02/25 08/02/25 13:28 13:29 MCV 84.6 MCH 28.1 MCHC 33.2 RDW 13.1 Plt Count 174 MPV 13.7 H Immature Gran % (Auto) 0.3 Neut % (Auto) 60.1 Lymph % (Auto) 29.8 [place] % (Auto) 8.7 Eos % (Auto) 0.7 Baso % (Auto) 0.4 Lymph # (Auto) 3.0 [place] # (Auto) 0.9 Eos # (Auto) 0.1 Baso # (Auto) 0.0 Abs Immat Gran (auto) 0.03 Absolute Neuts (auto) 6.0 Absolute Nucleated RBC 0.000 Nucleated RBC % (auto) 0.0 PT 12.5 INR 1.0 Anion Gap 15 Estim Creat Clear Calc 55.0 Estimated GFR 58 Random Glucose 85 Calcium 10.9 H D Magnesium 1.4 L* Total Bilirubin 0.5 AST 32 ALT 30 Alkaline Phosphatase 68 Troponin I High Sens < 2.7 Total Protein 8.7 H Albumin 5.2 H Triglycerides 115 Lipase 11 Influenza Type A (PCR) NEGATIVE Influenza Type B (PCR) NEGATIVE RSV RNA Qual (PCR) NEGATIVE SARS-CoV-2 RNA (RT-PCR) NEGATIVE Imaging Radiologist's Impressions: Impressions Chest X-Ray 08/02/25 13:53 IMPRESSION: No acute airspace disease. Electronically signed by: Connor Morel MD 08/02/2025 01:57 PM [facility] Abdomen/Pelvis CT 08/02/25 14:31 IMPRESSION: Chronic pancreatitis. Mild fat stranding and small amount of fluid surrounding the head of the pancreas questionable for acute pancreatitis. There is also a 1.5 cm low-attenuation area in the body of the pancreas. Imaging follow-up recommended. Fluid-filled distal small bowel and proximal large bowel probably representing an ileus. Multiple nonobstructing left renal stones. Electronically signed by: Susan Chan MD 08/02/2025 03:02 PM [facility] Assessment and Plan (1) Acute on chronic pancreatitis: Status: Acute Plan This is a 55-year-old male with history of chronic pancreatitis, type 2 diabetes, migraines history of pancreatic stones status post Puestow procedure in April 2025 who presents to the emergency department with abdominal pain found to have acute on chronic pancreatitis and possible ileus Acute on chronic pancreatitis lipase normal TG controlled. NPO, IVF, antiemetics, pain control seen by GI while in ED ileus imaging with possible ileus abdomen non-distended on exam npo, advance diet as tolerated check stool studies hypomagnesemia magnesium 1.4 given IV mag in the ED follow levels in am T2DM SSI, POCs Trulicity non formulary Hold pioglitazone Med rec pending at the time of admission DVT prophylaxis-Lovenox Code status-full code Patient will likely require 2 midnight stay in the hospital for management of acute on chronic pancreatitis requiring close monitoring, serial abdominal exams Quality Stroke Does the patient have a stroke diagnosis?: No VTE Prior VTE?: No VTE Risk Level:: Medical - moderate - high VTE Device Contraindication: N/A - Device Ordered VTE Drug Contraindication: N/A - Med Ordered
[2025-08-02] MEDS: Lactated Ringers 1,000 ML 150 ML IVCONT ×2 (17:36→23:52)
--- NOTE | 2025-08-02 18:21 | PHA.MEDREC ---
Addendum entered by Blanca Dee [facility] 08/02/25 18:23: Kaylynn will bring in Linzess for patient Original Note: Pharmacy Consult ? Medication Reconciliation Pharmacy has completed the medication reconciliation. Patient had list in wallet and family member Kaylynn ([phone]) at bedside who confirmed Aimovig is taken on the of every month.
[2025-08-02 20:50] LABS: Glucose, Whole Blood 94 mg/dL (60-115)
[2025-08-02] MEDS: oxyCODONE HCl Immed Release 5 MG TABLET PO (21:04)
--- OUTSIDE RECORDS SUMMARY | 2025-08-02 21:19 | XMS_ITS | Encounter Summary ---
Author Organization [facility] Address [address] [place] [address] Phone Care Team Providers Care Pageant Director Name Role Phone Tyrell Perry MD Primary Care Provider + [phone] Encounter Details Date Type Department Care Team (Late st Contact Info) Description 05/11/2025 Procedure Pass [facility] PERIOPERATIVE DEPT [address] [place] [address] Social History Tobacco Use Types [...] 5:00 AM EDT Aby Tian, LAURA * Grayson Suicide Severity Rating Scale (Screener/Recent Self-Report) Question [...] Care Team (Late st Contact Info) Description 10/31/2025 10:00 AM EDT Office Visit [facility] [address] [place] [address], 5[address] [place] [address] Sandip Callejas PA-C [address] [place] [address] 5 [place] [address] [email or web address] documented as of this encounter Visit Diagnoses Not on filedocumented in this encounter Care Teams Pageant Director Relationship Specialty Start Date End Date Tyrell Perry MD [address] [place] [address] [email or web address] PCP - General Family Medicine 03/15/19 documented as of this encounter Additional Source Comments The information contained in this document represents components of the legal health record. It is not the complete legal health record.[facility]
--- OUTSIDE RECORDS SUMMARY | 2025-08-02 21:19 | XMS_ITS | Encounter Summary ---
Author Organization [facility] Address [address] [address] Phone Care Team Providers Care Reimbursement Analyst Name Role Phone Tyrell Perry MD Primary Care Provider + [phone] Encounter Details Date Type Department Care Team (Latest Contact Info) Description 06/03/2021 Transcribe Orders Virtual Department [address] [place] [address] Immanuel Torres MD [address] [place] [address] [email or web address] Fatty (change of) liver, not elsewhere classified [...] Description 10/31/2025 10:00 AM EDT Office Visit [facility] [address] [facility], 5th [place] [address] Sandip Callejas PA-C [address] [place] [id number] [email or web address] documented as of this encounter [...] in the right hepatic lobe on a Thumb Reading ultrasound machine. 2D shear wave elastography technique [...] obtained in the righthepatic lobe on a Thumb Reading ultrasound machine. 2D shear wave elastographytechnique was [...] disease documented in this encounter Care Teams Reimbursement Analyst Relationship Specialty Start Date End Date Tyrell Perry MD [address] [place] [id number] PCP - General Family Medicine 03/15/19 documented as of this encounter Additional Source Comments The information contained in this document represents components of the legal health record. It is not the complete legal health record.[facility]
--- OUTSIDE RECORDS SUMMARY | 2025-08-02 21:19 | XMS_ITS | Encounter Summary ---
Author Organization [facility] Address [address] [address] Phone Care Team Providers Care Chairman And Ceo Name Role Phone Tyrell Perry MD Primary Care Provider + [phone] Encounter Details Date Type Department Care Team (Latest Contact Info) Description 04/05/2024 Transcribe Orders Virtual Department [address] [place] [address] Immanuel Torres MD [address] [place] [address] Fatty (change of) liver, not elsewhere classified [...] Description 10/31/2025 10:00 AM EDT Office Visit [facility] [address] [facility], 5th [place] [address] Sandip Callejas PA-C [address] [place] [id number] [email or web address] documented as of this encounter Results * [...] provided indication for this examination in Epic: Outside Radiology Order; fatty liver TECHNIQUE: Focused [...] clinician's provided indication for this examination in Epic:Outside Radiology Order; fatty liver TECHNIQUE: Focused ultrasound [...] not well established. us Immanuel Torres MD IM US ABDOMEN Final Result documented in this encounter Visit Diagnoses Diagnosis Fatty (change of) liver, not elsewhere classified- Primary Fatty (change of) liver, not elsewhere classified documented in this encounter Care Teams Chairman And Ceo Relationship Specialty Start Date End Date Tyrell Perry MD [address] [place] [address] (work) [email or web address] PCP - General Family Medicine 03/15/19 documented as of this encounter Additional Source Comments The information contained in this document represents components of the legal health record. It is not the complete legal health record.[facility]
--- OUTSIDE RECORDS SUMMARY | 2025-08-02 21:19 | XMS_ITS | Clinical Summary ---
Author Organization [facility] Address [address] [place] [address] Care Team Providers Care Edi Specialist Name Role Phone Tyrell Perry Primary Care Provider [phone] Allergies Active Allergy Reactions Criticality Noted Date [...] by mouth once a day. Active pancrelipase, vpqanj-ferejbma-owe lase, (Creon) 12,000-38,000 -60,000 unit capsule Take 1 capsule by mouth 3 times a day with meals. Active oxyCODONE IR (ROXICODONE) 10 mg tablet Take 10 mg by mouth every 6 hours as needed. Active SUMAtriptan (IMITREX) 100 mg tablet Take 50 mg by mouth once as needed. Active Family History Medical History Relation Name Comments [...] ual Screening 08/23/2024 Influenza Vaccine (#1) 2025 4, 06/01/2023, 06/01/2023, Additional history exists COVID-19 Vaccine (7 - 2024-2 6 season) 2025 05/09/2024, 06/01/2023, 06/24/2022, Additional history exists Diabetes Screening 01/05/2028 01/04/2025, 0 11/07/2024, 06/07/2012 DTaP,Tdap,and Td Vaccines (2 - Td or Tdap) 05/09/2034 05/09/2024, 04/22/2023 Zoster Vaccines Completed 03/17/2023, 01/08/2023 Pneumococcal Vaccine: 50+ Years Completed 3, 05/23/2020 Procedures * Due to [place] FiTeq law, this organization might not be sharing negative HIV tests. Procedure Name Priority Date/Time Associated Diagnosis Comments POCT GLUCOSE Routine 01/04/2025 11:09 AM EDT from Last 3 Months or Most Recently Relevant to Health Maintenance Results * Due to [place] FiTeq law, this organization might not be sharing negative HIV tests. * POCT Glucose, interfaced (01/04/2025 11:09 AM EDT) Glucose, POCT 94 70 - 99 mg/dL 01/04/2025 11:10 AM EDT [facility] Comment: The equipment cleaner and tester has not determined the efficacy of this test in Critically ill patients. [facility] defines Critically ill patients for the [...] POCT ORDERABLES - DEVICE Fi nal Result [facility] [address] [place] [address], from Last 3 Months or Most Recently Relevant to Health Maintenance Insurance MEDICARE [facility] Care Teams Edi Specialist Relationship Specialty Start Date End Date Tyrell Perry [address] [place] [address] PCP - General 03/11/17
--- OUTSIDE RECORDS SUMMARY | 2025-08-02 21:19 | XMS_ITS | Encounter Summary ---
Author Organization [facility] Address [address] [address] Phone Care Team Providers Care Real Estate Legal Assistant Name Role Phone Tyrell Perry MD Primary Care Provider + [phone] Encounter Details Date Type Department Care Team (Late st Contact Info) Description 04/26/2025 Procedure Pass [facility], [address] [address] Social History Tobacco Use Types Packs/Day Years [...] Description 10/31/2025 10:00 AM EDT Office Visit [facility] [address] [place] [address], 5th [place] [address] Sandip Callejas PA-C [address] [place] [phone] [email or web address] documented as of this encounter Visit Diagnoses Not on filedocumented in this encounter Care Teams Real Estate Legal Assistant Relationship Specialty Start Date End Date Tyrell Perry MD [address] [place] [address] PCP - General Family Medicine 03/15/19 documented as of this encounter Additional Source Comments The information contained in this document represents components of the legal health record. It is not the complete legal health record.[facility]
--- OUTSIDE RECORDS SUMMARY | 2025-08-02 21:20 | XMS_ITS | Clinical Summary ---
Author Organization [facility] Address [address] [facility] [address] [place] [address] Phone Care Team Providers Care Commercial Baking Teacher Name Role Phone Tyrell Perry MD Primary Care Provider + [phone] Allergies Active Allergy Reactions Criticality Noted Date [...] hours as needed for nausea. Active pancrelipase, ohfvsr-aumrifab-tm ylase, (CREON) 36,000-114,000- 180,[address] capsule Take 2 capsules (72,000 units of lipase total) by mouth 3 (three) times a day with meals. Take 1 with snacks 240 capsule 5 03/20/20 Active TRULICITY 4.5 mg/0.5 mL subcutaneous injection [...] times a day as needed for pain. 05/18/20 Active polyethylene glycol (MIRALAX) 17 gram packet Take 17 g by mouth daily. Take daily while on increased dose of pain medication. 05/18/20 Active simethicone (MYLICON) 80 mg chewable tablet Take 1 tablet (80 mg total) by mouth every 6 (six) hours as needed (gas pains). 05/18/20 Active oxyCODONE 10 mg Tab Partial fill ok. Take 1.5 tabs q 3 hrs prn x 1 day, then 1.5 tabs q 4 hrs prn x 2 days, then 1 tab q 4 hrs prn x 2 days then resume home rx/schedule. 16 tablet 05/18/20 Active docusate sodium (COLACE) 100 MG capsule Take 1 capsule (100 mg total) by mouth 2 (two) times a day as needed for mild constipation. Use this medication to prevent constipation while taking pain medication. This medication is available over the counter. 05/18/20 Active melatonin 5 mg Tab Take 1 tablet (5 mg total) by mouth nightly at bedtime as needed (insomnia). 05/18/20 Active Active Problems Problem Noted Date Diagnosed Date Pancreatitis without necrosis or infection 05/11 Encounters Date Type Department Care Team Description 06/28/2025 11:00 AM EST Office Visit [facility] [address] [place] [address], 5th [place] [address] [facility] [place] [facility], Jailyn Loaiza MD Chronic pancreatitis, unspecified pancreatitis type (Primary Dx) 06/28/2025 11:00 AM EST Office Visit [facility] [address] [facility] 5th [place] [address] Blair Finnegan MD Other chronic pancreatitis (Primary Dx) 05/11/2025 11:48 AM EDT Anesthesia Event [facility] PER[facility]PT [address] [place] [phone] Ion Vines MD, MSc Tresa Alexis RN 05/11/2025 9:44 AM EDT - 05/11/2025 2:49 PM EDT Surgery [facility] [address] [place] [phone] Blair Finnegan MD [facility] PROCEDURE 05/11/2025 6:28 AM EDT - 05/18/2025 4:20 PM EDT Hospital Encounter [facility] [place] [address] [place] [phone] Blair Finnegan MD Discharge Disposition: Home or Self Care 05/11/2025 Procedure Pass [facility] [address] [place] [phone] 05/04/2025 4:45 PM EDT Pre-Admission Testing [facility] Pre-Procedure Evaluation Department [place] [address] Unknown, MD Arabella from Last 3 Months Immunizations Immunization Administration [...] Upcoming Encounters Date Type Department Care Team ([facility] st Contact Info) Description 10/31/2025 10:00 AM EDT Office Visit [facility] [address] [facility], 5th [place] [address] Sandip Callejas PA-C [address] [place] [phone] [email or web address] Health Maintenance Due Date Last Done Comments DEPRESSION SCREENING 1984 HEPATITIS C SCREENING 02/24/1990 HIV ONE-TIME SCREENING (18-65 YEARS) 02/24/1990 COLOGUARD 02/24/2017 COLONOSCOPY 02/24/2017 COLORECTAL CANCER SCREENING 02/24/2017 FIT TEST 02/24/2017 FOBT 02/24/2017 SIGMOIDOSCOPY 02/24/2017 VIRTUAL COLONOSCOPY 02/24/2017 COVID-19 VACCINE (2024- season) 2025 05/09/2024, 06/01/2023, 06/24/2022, Additional history exists SCREENING FOR DIABETES 05/18/2028 05/18/2025 LIPID PANEL 11/07/2029 11/07/2024, 10/21, 08/31/2019, Additional history exists Adult Td,Tdap Booster 05/09/2034 05/09/2024, 023 RSV VACCINE (1 - 1-dose 75+ series) 02/24/2047 ZOSTER VACCINES Completed 03/17/2023, 01/08/2023 PNEUMOCOCCAL VACCINES (50+ years) Completed 07/27/2023, 05/23/2020 INFLUENZA VACCINE Completed 04/24/2025, , 06/01/2023, Additional [...] 05/17/2025 5:10 AM EDT BASIC METABOLIC PANEL (BMP) Routine 05/17/2025 5:10 AM EDT POCT GLUCOSE Routine 05/16/2025 9:04 PM EDT POCT GLUCOSE Routine 05/16/2025 5:29 PM EDT POCT GLUCOSE Routine 05/16/2025 11:41 AM EDT CBC Routine 05/16/2025 3:15 AM EDT PHOSPHORUS Routine 05/16/2025 3:15 AM EDT MAGNESIUM Routine 05/16/2025 3:15 AM EDT BASIC METABOLIC PANEL (BMP) Routine 05/16/2025 3:15 AM EDT POCT GLUCOSE Routine 05/15/2025 9:00 PM EDT POCT GLUCOSE Routine 05/15/2025 5:22 PM EDT POCT GLUCOSE Routine 05/15/2025 11:41 AM EDT POCT GLUCOSE Routine 05/15/2025 11:07 AM EDT POCT GLUCOSE Routine 05/15/2025 7:50 AM EDT CBC Routine 05/15/2025 2:10 AM EDT PHOSPHORUS Routine 05/15/2025 2:10 AM EDT MAGNESIUM Routine 05/15/2025 2:10 AM EDT BASIC METABOLIC PANEL (BMP) Routine 05/15/2025 2:10 AM EDT POCT GLUCOSE [...] 05/14/2025 3:16 AM EDT BASIC METABOLIC PANEL (BMP) Routine 05/14/2025 3:16 AM EDT POCT GLUCOSE [...] 05/13/2025 5:29 AM EDT BASIC METABOLIC PANEL (BMP) Routine 05/13/2025 5:29 AM EDT POCT GLUCOSE [...] 05/12/2025 3:47 AM EDT BASIC METABOLIC PANEL (BMP) Routine 05/12/2025 3:47 AM EDT POCT GLUCOSE Routine 05/12/2025 12:20 AM EDT POCT GLUCOSE Routine 05/11/2025 5:09 PM EDT URINALYSIS WITH REFLEX TO URINE CULTURE Routine 05/11/2025 1:29 PM EDT AIRWAY PLACEMENT Routine 05/11/2025 1:05 PM EDT [facility] ANAST PANCREAS-JEJUNUM/S ZAHRA-SIDE 05/11/2025 12:52 PM EDT Chronic pancreatitis, unspecified pancreatitis type Special Needs Spyglass lithotripsy POCT GLUCOSE Routine 05/11/2025 12:45 PM EDT ABO AND RH STAT 05/11/2025 12:39 PM EDT HC BLOOD TYPING SEROLOGIC ABO STAT 05/11/2025 12:39 PM EDT ANES EPIDURAL LDA Routine 05/11/2025 12:20 PM EDT [facility] INJ INFUS CERV THORAC W/CATH [id number] WITHOUT IMG PERF Routine 05/11/2025 12:20 PM EDT POCT GLUCOSE Routine 05/11/2025 7:28 AM EDT LIPID PANEL Routine 08/31/2019 2:16 PM EST Acute pancreatitis, unspecified complication status, unspecified pancreatitis type Chronic pancreatitis, unspecified pancreatitis type Nausea from Last 3 Months or Most Recently Relevant to Health Maintenance Results * (ABNORMAL) POCT Glucose (05/18/2025 10:40 AM EDT) Only the most recent of36 resultswithin the time period is included. Glucose, POCT 208(H) 70 - 110 mg/dL [facility] 05/18/2025 10:4 0 AM EDT 05/18/2025 10:52 AM EDT us Blair Finnegan MD POINT OF CARE TEST ORDERABL ES Final Result Performing Organization Address City/[facility]/ZIP Co de Phone Number [address] [address] * Lab Add On: lipase (05/17/2025 7:29 AM EDT) TEST REQUESTED LIPASE [facility] Comments (Chemistry) ADD ON COMPLETE. [facility] 05/17/2025 7:29 AM EDT 05/17/2025 8:50 AM EDT us Marilee Quevedo CNP LAB BLOOD ORDERABLES Fin al Result Performing Organization Address City/[facility]/ZIP Co de Phone Number [address] [address] * (ABNORMAL) CBC (05/17/2025 5:10 AM EDT) Only the most recent of6 resultswithin the time period is included. WBC 5.16 4.00 - 11.00 K/uL [facility] RBC 3.85(L) 4.50 - 5.90 M/uL [facility] HGB 10.8(L) 13.5 - 17.5 g/dL [facility] HCT 32.6(L) 41.0 - 53.0 % [facility] PLT 224 150 - 450 K/uL [facility] MCV 84.7 80.0 - 100.0 fL [facility] MCH 28.1 27.0 - 31.0 pg [facility] MCHC 33.1 32.0 - 36.0 g/dL [facility] RDW 13.3 11.5 - 14.5 % [facility] MPV 11.8 8.4 - 12.0 fL [facility] NRBC 0.00 0.00 /100 WBCs [facility] ABSOLUTE NRBC 0.00 0.00 K/uL [facility] Blood 05/17/2025 5:10 AM EDT 05/17/2025 5:26 AM EDT us Blair Finnegan MD LAB BLOOD BKR ORDERABLES Fi nal Result Performing Organization Address [facility]/ZIP Co de Phone Number [address] [address] * Phosphorus (05/17/2025 5:10 AM EDT) Only the most recent of6 resultswithin the time period is included. PHOSPHORUS 2.6 2.6 - 4.5 mg/dL [facility] Blood 05/17/2025 5:10 AM EDT 05/17/2025 5:25 AM EDT us Blair Finnegan MD LAB BLOOD BKR ORDERABLES Fi nal Result Performing Organization Address City/[facility]/ZIP Co de Phone Number [address] [address] * Magnesium (05/17/2025 5:10 AM EDT) Only the most recent of6 resultswithin the time period is included. MAGNESIUM 1.7 1.7 - 2.4 mg/dL [facility] Blood 05/17/2025 5:10 AM EDT 05/17/2025 5:25 AM EDT us Blair Finnegan MD LAB BLOOD BKR ORDERABLES Fi nal Result Performing Organization Address [facility]/ZIP Co de Phone Number [address] [address] * (ABNORMAL) Lipase (05/17/2025 5:10 AM EDT) LIPASE 9(L) 13 - 60 U/L [facility] 05/17/2025 5:10 AM EDT 05/17/2025 5:25 AM EDT Joselyn Self MD, PhD LAB BLOOD BKR ORDERABL ES Final Result Performing Organization Address [facility] de Phone Number [address] [address] * Basic metabolic panel (05/17/2025 5:10 AM EDT) Only the most recent of6 resultswithin the time period is included. SODIUM 142 135 - 145 mmol/L [facility] POTASSIUM 3.4 3.4 - 5.0 mmol/L [facility] CHLORIDE 106 98 - 108 mmol/L [facility] CO2 24 23 - 32 mmol/L [facility] BUN 8 8 - 25 mg/dL [facility] CREATININE 0.80 0.60 - 1.30 mg/dL [facility] GLUCOSE 110 70 - 110 mg/dL [facility] CALCIUM 9.2 8.5 - 10.5 mg/dL [facility] EGFR 106 >59 mL/min/1.7 3m2 [facility] Comment:Estimated glomerular filtration rate calculated using the CKD-EPI refit equation. ANION GAP 12 3 - 17 mmol/L [facility] Blood 05/17/2025 5:10 AM EDT 05/17/2025 5:25 AM EDT us Blair Finnegan MD LAB BLOOD BKR ORDERABLES Fi nal Result Performing Organization Address [facility] Co de Phone Number [address] [address] * Chemistry Comment (05/14/2025 10:55 AM EDT) Comments (Chemistry) LIZZY VERNON DRAIN [facility] 05/14/2025 10:5 5 AM EDT 05/14/2025 11:30 AM EDT us Marilee Quevedo CNP LAB BLOOD ORDERABLES Fin al Result Performing Organization Address [facility] de Phone Number [address] [address] * Amylase (fluid--not CSF) Other fluid (specify below) (05/14/2025 10:55 AM EDT) FLUID AMYLASE 14 U/L [facility] Other (Other fluid (specify below)) 05/14/2025 10:55 AM EDT 05/14/2025 11:30 AM EDT us Marilee Quevedo CNP LAB BODY FLUIDS AND STOO L ORDERABLES Final Result Performing Organization Address [facility] de Phone Number [address] [address] * Vancomycin Resistant Enterococci (VRE), Rectal Screen (05/12/2025 6:01 AM EDT) Special Requests No Special Requests 05/12/2025 5:58 AM EDT [facility] VRE Rectal Culture NEGATIVE FOR VRE 05/13/2025 8:01 AM EDT [facility] Other (Rectal) 05/12/2025 6: 01 AM EDT 05/12/2025 8:40 AM EDT us Blair Finnegan MD LAB MICROBIOLOGY CULTURE OR DERABLES Final Result Performing Organization Address [facility] Co de Phone Number [address] [address] * MRSA Nasal Screen (05/12/2025 5:58 AM EDT) Special Requests No Special Requests 05/12/2025 5:58 AM EDT [facility] MRSA Nasal Culture NEGATIVE FOR MRSA 05/13/2025 8:40 AM EDT [facility] Other (Nasal) 05/12/2025 5:5 8 AM EDT 05/12/2025 8:40 AM EDT us Blair Finnegan MD LAB MICROBIOLOGY CULTURE OR DERABLES Final Result Performing Organization Address City/[facility]/ZIP Co de Phone Number [address] [address] * Urinalysis w/reflex Urine Culture (05/11/2025 1:29 PM EDT) COLOR Yellow Yellow [facility] CLARITY Clear Clear [facility] GLUCOSE Negative Negative [facility] BILI Negative Negative [facility] KETONES Negative Negative [facility] SPECIFIC GRAVITY 1.010 1.001 - 1.035 [facility] BLOOD Negative Negative [facility] PH 8.0 5.0 - 9.0 [facility] Protein-UA Negative Negative [facility] UROBILINOGEN Negative Negative [facility] NITR[facility] Negative Negative [facility] Leukocyte esterase, ur Negative Negative [facility] Urine (Urine) 05/11/2025 1:2 9 PM EDT 05/11/2025 2:04 PM EDT us Blair Finnegan MD LAB URINE ORDERABLES Final Result [address] [address] * ANES ETT DOUBLE LUMEN - AIRWAY LDA (05/11/2025 1:05 PM EDT) Narrative Kely Serrano MD - 05/11/2025 1:05 PM EDT Kely Serrano MD 05/11/2025 1:42 PM Airway Placement Procedure Note: Patient was not difficult to intubate. Procedure performed by: anesthesiologist and fellow/resident/TABLE CUT OFF SAW OPERATOR Anesthesiologist: Ion Vines MD, MSc Fellow/Resident/TABLE CUT OFF SAW OPERATOR: Kely Serrano MD Airway procedure initiated [...] Complications observed? no Ion Vines MD, MSc [facility] Fi nal Result * ABO and Rh (05/11/2025 12:39 PM EDT) Expiration Date of Sample 05/14/2025 11:59 PM [facility] ABO O 05/11/2025 2:25 PM EDT [facility] Rh Positive 05/11/2025 2:25 PM EDT [facility] Resulting Agency [facility] 05/11/2025 12:3 9 PM EDT 05/11/2025 1:24 PM EDT Blood Bank LAB BLOOD BANK TEST ORDERABLES F inal Result [address] [address] * Type and Screen (ABO,Rh,Antibody Screen) (05/11/2025 12:39 PM EDT) Expiration Date of Sample 05/14/2025 11:59 PM [facility] ABO O 05/11/2025 2:25 PM EDT [facility] Rh Positive 05/11/2025 2:25 PM EDT [facility] Resulting Agency [facility] Antibody Screen Negative 05/11/2025 2:40 PM EDT [facility] Blood 05/11/2025 12:3 9 PM EDT 05/11/2025 1:24 PM EDT us Blair Finnegan MD LAB BLOOD BANK TEST ORDERAB LES Final Result [facility] [address] [place] [address] * [facility]FUS CERV THORAC W/CATH [id number] WITHOUT IMG PERF, ANES EPIDURAL LDA (05/11/2025 12:20 PM EDT) Narrative Kely Serrano MD - 05/11/2025 12:20 PM EDT Kely Serrano MD 05/30/2025 1:11 AM Epidural Catheter Placement Procedure Note: Start time: 05/11/2025 12:20 PM Reason for block: epidural performed exclusively for post-op analgesia Performed by: anesthesiologist and fellow/resident/TABLE CUT OFF SAW OPERATOR Anesthesiologist: Ion Vines MD, MSc Fellow/Resident/TABLE CUT OFF SAW OPERATOR: Kely Serrano MD [place] Protocol performed: consent obtained, patient identified with [...] aspirated. Blood was not aspirated Complications? no Notes: Epidural catheter placed at request of surgical team for post-operative analgesia. us Ion Vines MD, MSc [facility] Ed ited Result - Final * (ABNORMAL) Lipid panel (08/31/2019 2:16 PM EST) HDL 51 mg/dL [facility] Comment: Interpretation <40 mg/dL: Low HDL cholesterol (major risk factor for CHD) Greater than or equal to 60 mg/dL: High HDL cholesterol ( negative risk factor for CHD) HDL - cholesterol is affected by a number of factors, e.g. smoking, excerise, hormones, sex and age. CHOLESTEROL 153 0 - 240 mg/dL [facility] TRIGLYCERIDES 191(H) 30 - 160 mg/dL [facility] LDL 64 50 - 129 mg/dL [facility] Comment: LDL levels in terms of risk for coronary heart disease: <100 mg/dL: Optimal 100-129 mg/dL: Near or above optimal 130-159 mg/dL: Borderline high 160-189 mg/dL: High >190 mg/dL: Very High CARDIAC RISK RATIO 3.0(L) 3.4 - 5.0 C [facility] Blood 08/31/2019 2:16 PM EST 08/31/2019 2:22 PM EST us Sharad Horn MD LAB BLOOD BKR ORDERABLES Fin al Result [address] [address] from Last 3 Months or Most Recently Relevant to Health Maintenance Insurance MEDICARE PART A & B [facility] MEDICARE PART A & [place] Advance Directives For more information, please contact: [phone] (9AM - 5PM [facility], Wednesday-Wednesday) Documents on File Type Date Recorded Patient Stoker Erector Expl anation [facility] 05/21/2025 4:56 PM Healthcare Proxy 05/21/2025 4:56 PM * Full Code (Latest Code Status on File) Date Activated Date Inactivated Comments 05/14/2025 4:21 PM Question Answer Comments Code Status Confirmed With: Patient Code Status Communicated To: Inpatient Attending Care Teams Commercial Baking Teacher Relationship Specialty Start Date End Date Tyrell Perry [facility] [place] [address] [email or web address] PCP - General Family Medicine 03/15/19 Additional Source Comments The information contained in this document represents components of the legal health record. It is not the complete legal health record.[facility]
--- OUTSIDE RECORDS SUMMARY | 2025-08-02 21:20 | XMS_ITS | Encounter Summary ---
Author Organization [facility] Address [address] [place] [phone] Phone Care Team Providers Care Director Of Patient Care Name Role Phone Tyrell Perry MD Primary Care Provider + [phone] Tyrell Perry MD Primary Care Provider + [phone] Encounter Details Date Type Department Care Team (Latest Contact Info) Description 06/20/2018 Transcribe Orders [facility] Phleb Evelia [address] [place] [phone] Rangel Harris MD [address] [place] [phone] [email or web address] Bloating (Primary Dx) Social History Tobacco Use [...] 10/31/2025 10:00 AM EDT Office Visit [facility] [address] [facility], 5th [place] [address] Sandip Callejas PA-C [address] [place] [id number] [email or web address] documented as of this encounter Results * IgG subclasses (06/20/2018 9:53 AM EDT) IGG 1 555 341 - 894 mg/dL [facility] DPT OF LAB MED AND PAT+ IGG 2 469 171 - 632 mg/dl [facility] DPT OF LAB MED AND PAT+ IGG 3 44.0 18.4 - 106.0 mg/dl [facility] DPT OF LAB MED AND PAT+ IGG 4 55.6 2.4 - 121.0 mg/dl [facility] DPT OF LAB MED AND PAT+ TOTAL IGG 1,310 767 - 1,590 mg/dl [facility] DPT OF LAB MED AND PAT+ Blood 06/20/2018 9:53 AM EDT 06/20/2018 9:56 AM EDT us Rangel Harris MD LAB BLOOD ORDERABLES Final Re sult [facility] DPT OF LAB MED AND PAT+ [address] [place] [address] * (ABNORMAL) Lipid panel (06/20/2018 9:53 AM EDT) HDL 34 mg/dL [facility] Comment: Interpretation: Risk Level Males Decreased >45 mg/dL Average 40-45 mg/dL Increased <40 mg/dL CHOLESTEROL 112 0 - 240 mg/dL [facility] TRIGLYCERIDES 324(H) 30 - 160 mg/dL [facility] LDL 13(L) 50 - 129 mg/dL [facility] Comment: LDL levels in terms of risk for coronary heart disease: <100 mg/dL: Optimal 100-129 mg/dL: Near or above optimal 130-159 mg/dL: Borderline high 160-189 mg/dL: High >190 mg/dL: Very High CARDIAC RISK RATIO 3.3(L) 3.4 - 5.0 C [facility] Blood 06/20/2018 9:53 AM EDT 06/20/2018 9:56 AM EDT us Rangel Harris MD LAB BLOOD BKR ORDERABLES Izabella hdz Result [facility] [address] [place] [address] documented in this encounter Visit Diagnoses Diagnosis Bloating- Primary Flatulence, eructation, and gas pain documented in this encounter Care Teams Director Of Patient Care Relationship Specialty Start Date End Date Tyrell Perry MD [address] [place] [address] [email or web address] PCP - General Family Medicine 06/20/18 03/14/19 Tyrell Perry MD [address] [place] [address] [email or web address] PCP - General Family Medicine 03/15/19 documented as of this encounter Additional Source Comments The information contained in this document represents components of the legal health record. It is not the complete legal health record.[facility]
--- OUTSIDE RECORDS SUMMARY | 2025-08-02 21:20 | XMS_ITS | Encounter Summary ---
Author Organization [facility] Address [address] [place] [address] Care Team Providers Care Choral Teacher Name Role Phone Tyrell Perry Primary Care Provider [phone] Encounter Details Date Type Department Care Team (Late st Contact Info) Description 11/08/2024 myChart Message Intial Department [address] [place] [phone] Mychart, Generic Provider [address] [place], [place] [id number] Questionnaire Submission Social History Tobacco Use Types [...] on filedocumented in this encounter Care Teams Choral Teacher Relationship Specialty Start Date End Date Tyrell Perry [address] [place] [address] PCP - General 03/11/17 documented as of this encounter
--- OUTSIDE RECORDS SUMMARY | 2025-08-02 21:20 | XMS_ITS ---
Author Name Dakota Kimball Address Unknown Organization [facility] Team Providers Care Manager Occupational Name Role Phone Unavailable Primary Care Physician Unavailab le History Of Present Illness No Data Allergies, Adverse Reactions, Alerts Substance RxNorm Reaction(s) Severity Status Start Da te Pepcid [id number] unspecified active Pepcid Complete GI upset unspecified active gabapentin unspecified active Advil unspecified active Medications Medication Generic Name RxNorm Strength Strength Unit Route Dose Dose Form Frequency Date Started Date Ended Status Indication Sig betamethaso ne dipropionat e betameth asone dipropio sidra 0.05 % Topica l ointm ent 11/05/19 21 suspend ed Appl y to rash BID up to 2 week s on, 1 week off as need ed betamethaso ne dipropionat e betameth asone dipropio sidra 619501 0.05 % Topica l cream 01/07/20 23 suspend ed AAA BID PRN rash betamethaso ne valerate betameth asone valerate 0.1 % Topica l apply thin layer lotio n BID PRN 07/26/20 24 active Appl y thin laye r twic e a day to area on scal p for 2 week s at a time . [place] 674937 0.05 % Topica l foam 07/26/20 24 suspend ed Appl y thin laye r to area of itch on scal p twic e oralia y for 2 week s at a time , taki ng a 1 week stanley k. [place]obet[place] 424907 0.05 % Topica l cream BID 09/21/19 25 suspend ed Appl y twic e oralia y to CTCL rash up to 2 week s/mo nth as need ed. ketoconazol e ketocona zole 057913 2 % Topica l cream 09/21/19 25 suspend ed Appl y thin laye r to rash on ches t BID unti l mike r and PRN flar es. tacrolimus tacrolim us 272407 0.1 % Topica l ointm ent 03/21/20 24 suspend ed Appl y oralia y to affe cted area s alogliptin- pioglitazon e aloglipt in-piogl itazone Oral suspend ed Creon lipase-p rotease- amylase 12,000-38 ,000 -60,000 unit Oral 1 capsu le,de layed relea se( /EC) QD active fenofibrate fenofibr ate 413806 54 mg Oral 1 table t QD 08/04/20 17 active fluoxetine fluoxeti ne 20 mg Oral 1 capsu le QD suspend ed Linzess linaclot keara 145 mcg Oral 1 capsu le QD active Nortrel (28) norethin -e.estra diol triphasi c Oral suspend ed nortriptyli ne nortript yline 25 mg Oral 1 capsu le QD active omeprazole omeprazo le 20021001 40 mg Oral 1 capsu le,de layed relea se (e.c. ) QD 08/04/20 17 active oxycodone oxycodon e 6417436 10 mg Oral 1 table t q6h 02/19/20 16 active pioglitazon e pioglita zone Oral suspend ed pioglitazon e pioglita zone 30 mg Oral 1 table t QD active rosuvastati n rosuvast atin 40 mg Oral 1 table t QD active sumatriptan succinate sumatrip glez succinat e 840256 100 mg Oral 1 table t PRN 02/19/20 16 active tizanidine tizanidi ne Oral suspend ed zolpidem zolpidem 369686 10 mg Oral 1 table t QD 02/19/20 16 active Trulicity dulaglut keara 4.5 mg/0.5 mL Subcut aneous 1 pen injec tor once weekly active Aleve NULL 01/17/20 15 suspend ed Atorvastati n Calcium NULL 16 suspend ed Betamethaso ne Dipropionat e NULL 02/02/20 18 suspend ed Butalbital- Acetaminoph en NULL 01/17/20 15 suspend ed Butalbital- APAP-Caffei ne NULL 02/19/20 16 2020 suspend ed CeleXA NULL 01/17/20 15 suspend ed Citalopram Hydrobromid e NULL 02/19/20 16 suspend ed Citalopram Hydrobromid e NULL 01/17/20 15 suspend ed CLOBETASOL 0.05% CREAM NULL 1203/11 13 suspend ed Crestor NULL 02/19/20 16 suspend ed Crestor NULL 01/17/20 15 suspend ed Fenofibrate NULL 01/17/20 15 suspend ed Fluticasone Propionate NULL 02/18 16 suspend ed Fluticasone Propionate NULL 01/16 15 suspend ed Lidoderm NULL 01/17/20 15 suspend ed NexIUM NULL 01/17/20 15 suspend ed Nortriptyli ne HCl NULL 02/19/20 16 suspend ed OxyCODONE HCl NULL 01/17/20 15 suspend ed RaNITidine HCl NULL 08/04/20 17 suspend ed Ranitidine HCl NULL 01/17/20 15 suspend ed SUMAtriptan Succinate NULL 15 suspend ed tiZANidine HCl NULL 08/04/20 17 active Zolpidem Tartrate NULL 0 15 suspend ed Problems Problem Code Type Status Date of Diagnosis Da te of Resolution Increased blood pressure (finding) 25207582(SNO MED) Problem active Disorder of skin and/or subcutaneous tissue (disorder) 52052990(SNO MED) Diagnosis active 02/20/2015 Psoriasis (disorder) 0247977(SNOM ED) Diagnosis active 01/16/2015 Other specified dermatitis L30.8(ICD-10 ) Diagnosis active 11/04/2020 Eczema (disorder) 03754882(SNO MED) Diagnosis active 02/05/2021 Cutaneous peripheral T-cell lymphoma (disorder) 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(SN OMED) Diagnosis active 03/10/2021 Inflammatory dermatosis (disorder) 212505988(SN OMED) Diagnosis active 06/16/2021 Cutaneous peripheral T-cell lymphoma (disorder) 774546731(SN OMED) Diagnosis active 01/06/2023 Anxiety disorder (disorder) 755435509(SN OMED) Problem active History of skin disorder (situation) 373114155(SN OMED) Problem active Cutaneous peripheral T-cell lymphoma (disorder) 940363150(SN OMED) Diagnosis active 03/17/2023 Inflammatory dermatosis (disorder) 109386818(SN OMED) Diagnosis active 03/17/2023 Cutaneous peripheral T-cell lymphoma (disorder) 458021465(SN OMED) Diagnosis active 03/29/2023 Cutaneous peripheral T-cell lymphoma (disorder) 826567022(SN OMED) Diagnosis active 03/31/2023 Cutaneous peripheral T-cell lymphoma (disorder) 462454775(SN OMED) Diagnosis active 04/02/2023 Cutaneous peripheral T-cell lymphoma (disorder) 414465888(SN OMED) Diagnosis active 04/05/2023 Cutaneous peripheral T-cell lymphoma (disorder) 584497063(SN OMED) Diagnosis active 04/07/2023 Cutaneous peripheral T-cell lymphoma (disorder) 953920820(SN OMED) Diagnosis active 04/12/2023 Cutaneous peripheral T-cell lymphoma (disorder) 206354293(SN OMED) Diagnosis active 04/09/2023 Cutaneous peripheral T-cell lymphoma (disorder) 541794771(SN OMED) Diagnosis active 04/14/2023 Cutaneous peripheral T-cell lymphoma (disorder) 327677839(SN OMED) Diagnosis active 04/16/2023 Cutaneous peripheral T-cell lymphoma (disorder) 584166592(SN OMED) Diagnosis active 04/19/2023 Cutaneous peripheral T-cell lymphoma (disorder) 233302369(SN OMED) Diagnosis active 04/21/2023 Cutaneous peripheral T-cell lymphoma (disorder) 430234143(SN OMED) Diagnosis active 04/28/2023 Cutaneous peripheral T-cell lymphoma (disorder) 089225994(SN OMED) Diagnosis active 05/03/2023 Cutaneous peripheral T-cell lymphoma (disorder) 397716520(SN OMED) Diagnosis active 04/30/2023 Cutaneous peripheral T-cell lymphoma (disorder) 542011296(SN OMED) Diagnosis active 05/10/2023 Cutaneous peripheral T-cell lymphoma (disorder) 615118435(SN OMED) Diagnosis active 05/12/2023 Cutaneous peripheral T-cell lymphoma (disorder) 923440639(SN OMED) Diagnosis active 05/14/2023 Cutaneous peripheral T-cell lymphoma (disorder) 482222352(SN OMED) Diagnosis active 05/17/2023 Cutaneous peripheral T-cell lymphoma (disorder) 957534684(SN OMED) Diagnosis active 05/19/2023 Cutaneous peripheral T-cell lymphoma (disorder) 937795622(SN OMED) Diagnosis active 05/24/2023 Cutaneous peripheral T-cell lymphoma (disorder) 350958212(SN OMED) Diagnosis active 05/26/2023 Cutaneous peripheral T-cell lymphoma (disorder) 136779742(SN OMED) Diagnosis active 05/28/2023 Cutaneous peripheral T-cell lymphoma (disorder) 387698428(SN OMED) Diagnosis active 05/31/2023 Cutaneous peripheral T-cell lymphoma (disorder) 186930369(SN OMED) Diagnosis active 06/02/2023 Cutaneous peripheral T-cell lymphoma (disorder) 510217004(SN OMED) Diagnosis active 06/04/2023 Cutaneous peripheral T-cell lymphoma (disorder) 786251638(SN OMED) Diagnosis active 06/07/2023 Cutaneous peripheral T-cell lymphoma (disorder) 578330159(SN OMED) Diagnosis active 06/09/2023 Cutaneous peripheral T-cell lymphoma (disorder) 615717217(SN OMED) Diagnosis active 06/11/2023 Cutaneous peripheral T-cell lymphoma (disorder) 434992504(SN OMED) Diagnosis active 06/14/2023 Cutaneous peripheral T-cell lymphoma (disorder) 929764111(SN OMED) Diagnosis active 06/16/2023 Cutaneous peripheral T-cell lymphoma (disorder) 032362818(SN OMED) Diagnosis active 06/18/2023 Cutaneous peripheral T-cell lymphoma (disorder) 059544578(SN OMED) Diagnosis active 06/21/2023 Cutaneous peripheral T-cell lymphoma (disorder) 251545658(SN OMED) Diagnosis active 06/23/2023 Cutaneous peripheral T-cell lymphoma (disorder) 334956957(SN OMED) Diagnosis active 06/23/2023 Neoplasm of uncertain behavior of skin (disorder) 84642099(SNO MED) Diagnosis active 10/04/2023 Cutaneous peripheral T-cell lymphoma (disorder) 674776974(SN OMED) Diagnosis active 10/04/2023 Cutaneous peripheral T-cell lymphoma (disorder) 784702167(SN OMED) Diagnosis active 11/17/2023 Cutaneous peripheral T-cell lymphoma (disorder) 242760015(SN OMED) Diagnosis active 03/21/2024 Disorder of nail (disorder) 14701025(SNO MED) Diagnosis active 03/21/2024 Disorder of skin (disorder) 40084467(SNO MED) Diagnosis active 03/21/2024 Cutaneous peripheral T-cell lymphoma (disorder) 540082959(SN OMED) Diagnosis active 04/03/2024 Cutaneous peripheral T-cell lymphoma (disorder) 049819407(SN OMED) Diagnosis active 03/31/2024 Cutaneous peripheral T-cell lymphoma (disorder) 464618200(SN OMED) Diagnosis active 04/05/2024 Cutaneous peripheral T-cell lymphoma (disorder) 689272878(SN OMED) Diagnosis active 04/07/2024 Cutaneous peripheral T-cell lymphoma (disorder) 435604726(SN OMED) Diagnosis active 04/10/2024 Cutaneous peripheral T-cell lymphoma (disorder) 458351330(SN OMED) Diagnosis active 04/19/2024 Cutaneous peripheral T-cell lymphoma (disorder) 320353226(SN OMED) Diagnosis active 04/21/2024 Cutaneous peripheral T-cell lymphoma (disorder) 583401303(SN OMED) Diagnosis active 04/26/2024 Neoplasm of uncertain behavior of skin (disorder) 28769326(SNO MED) Diagnosis active 04/27/2024 Cutaneous peripheral T-cell lymphoma (disorder) 198678174(SN OMED) Diagnosis active 04/27/2024 Cutaneous peripheral T-cell lymphoma (disorder) 522179077(SN OMED) Diagnosis active 05/01/2024 Cutaneous peripheral T-cell lymphoma (disorder) 304912979(SN OMED) Diagnosis active 04/28/2024 Cutaneous peripheral T-cell lymphoma (disorder) 743375287(SN OMED) Diagnosis active 05/03/2024 Cutaneous peripheral T-cell lymphoma (disorder) 030049552(SN OMED) Diagnosis active 05/08/2024 Cutaneous peripheral T-cell lymphoma (disorder) 242747587(SN OMED) Diagnosis active 05/05/2024 Cutaneous peripheral T-cell lymphoma (disorder) 264553895(SN OMED) Diagnosis active 05/12/2024 Cutaneous peripheral T-cell lymphoma (disorder) 984254889(SN OMED) Diagnosis active 05/15/2024 Cutaneous peripheral T-cell lymphoma (disorder) 093107322(SN OMED) Diagnosis active 05/17/2024 Cutaneous peripheral T-cell lymphoma (disorder) 172946672(SN OMED) Diagnosis active 05/26/2024 Cutaneous peripheral T-cell lymphoma (disorder) 230646516(SN OMED) Diagnosis active 05/24/2024 Cutaneous peripheral T-cell lymphoma (disorder) 520929437(SN OMED) Diagnosis active 05/29/2024 Cutaneous peripheral T-cell lymphoma (disorder) 784591984(SN OMED) Diagnosis active 05/31/2024 Cutaneous peripheral T-cell lymphoma (disorder) 885627340(SN OMED) Diagnosis active 06/02/2024 Cutaneous peripheral T-cell lymphoma (disorder) 524647918(SN OMED) Diagnosis active 06/05/2024 Cutaneous peripheral T-cell lymphoma (disorder) 639353468(SN OMED) Diagnosis active 06/09/2024 Cutaneous peripheral T-cell lymphoma (disorder) 197807275(SN OMED) Diagnosis active 06/12/2024 Cutaneous peripheral T-cell lymphoma (disorder) 900581069(SN OMED) Diagnosis active 06/14/2024 Cutaneous peripheral T-cell lymphoma (disorder) 235858920(SN OMED) Diagnosis active 06/14/2024 Epidermoid cyst of skin (disorder) 919444608(SN OMED) Diagnosis active 06/14/2024 Cutaneous peripheral T-cell lymphoma (disorder) 802452999(SN OMED) Diagnosis active 06/16/2024 Cutaneous peripheral T-cell lymphoma (disorder) 683794976(SN OMED) Diagnosis active 06/23/2024 Cutaneous peripheral T-cell lymphoma (disorder) 332902155(SN OMED) Diagnosis active 06/26/2024 Cutaneous peripheral T-cell lymphoma (disorder) 745127809(SN OMED) Diagnosis active 06/30/2024 Cutaneous peripheral T-cell lymphoma (disorder) 149783354(SN OMED) Diagnosis active 07/03/2024 Cutaneous peripheral T-cell lymphoma (disorder) 731838709(SN OMED) Diagnosis active 07/05/2024 Cutaneous peripheral T-cell lymphoma (disorder) 518875772(SN OMED) Diagnosis active 07/07/2024 Cutaneous peripheral T-cell lymphoma (disorder) 232985965(SN OMED) Diagnosis active 07/10/2024 Cutaneous peripheral T-cell lymphoma (disorder) 066675024(SN OMED) Diagnosis active 07/17/2024 Cutaneous peripheral T-cell lymphoma (disorder) 709191320(SN OMED) Diagnosis active 07/14/2024 Cutaneous peripheral T-cell lymphoma (disorder) 176116260(SN OMED) Diagnosis active 07/24/2024 Cutaneous peripheral T-cell lymphoma (disorder) 270442606(SN OMED) Diagnosis active 07/26/2024 Cutaneous peripheral T-cell lymphoma (disorder) 651908093(SN OMED) Diagnosis active 07/26/2024 Cutaneous peripheral T-cell lymphoma (disorder) 076024026(SN OMED) Diagnosis active 07/31/2024 Cutaneous peripheral T-cell lymphoma (disorder) 475133352(SN OMED) Diagnosis active 08/28/2024 Cutaneous peripheral T-cell lymphoma (disorder) 955635027(SN OMED) Diagnosis active 09/01/2024 Cutaneous peripheral T-cell lymphoma (disorder) 699950034(SN OMED) Diagnosis active 09/04/2024 Cutaneous peripheral T-cell lymphoma (disorder) 366496115(SN OMED) Diagnosis active 09/06/2024 Cutaneous peripheral T-cell lymphoma (disorder) 328485146(SN OMED) Diagnosis active 09/08/2024 Cutaneous peripheral T-cell lymphoma (disorder) 290719546(SN OMED) Diagnosis active 09/13/2024 Cutaneous peripheral T-cell lymphoma (disorder) 479571454(SN OMED) Diagnosis active 09/18/2024 Cutaneous peripheral T-cell lymphoma (disorder) 532664383(SN OMED) Diagnosis active 09/15/2024 Cutaneous peripheral T-cell lymphoma (disorder) 547904672(SN OMED) Diagnosis active 09/20/2024 Cutaneous peripheral T-cell lymphoma (disorder) 615781512(SN OMED) Diagnosis active 09/21/2024 Seborrheic dermatitis (disorder) 36632049(SNO MED) Diagnosis active 09/21/2024 Hemangioma of skin and subcutaneous tissue (disorder) 904008087(SN OMED) Diagnosis active 09/21/2024 Neoplasm of uncertain behavior of skin (disorder) 54720121(SNO MED) Diagnosis active 09/21/2024 Inflammatory dermatosis (disorder) 241375862(SN OMED) Diagnosis active 09/21/2024 Cutaneous peripheral T-cell lymphoma (disorder) 409194571(SN OMED) Diagnosis active 09/27/2024 Cutaneous peripheral T-cell lymphoma (disorder) 004181273(SN OMED) Diagnosis active 09/29/2024 Cutaneous peripheral T-cell lymphoma (disorder) 740666931(SN OMED) Diagnosis active 10/23/2024 Cutaneous peripheral T-cell lymphoma (disorder) 119110170(SN OMED) Diagnosis active 10/25/2024 Cutaneous peripheral T-cell lymphoma (disorder) 689118281(SN OMED) Diagnosis active 10/27/2024 Cutaneous peripheral T-cell lymphoma (disorder) 393086146(SN OMED) Diagnosis active 10/30/2024 Cutaneous peripheral T-cell lymphoma (disorder) 431512066(SN OMED) Diagnosis active 11/03/2024 Cutaneous peripheral T-cell lymphoma (disorder) 970991293(SN OMED) Diagnosis active 11/15/2024 Cutaneous peripheral T-cell lymphoma (disorder) 403340202(SN OMED) Diagnosis active 11/17/2024 Cutaneous peripheral T-cell lymphoma (disorder) 586153150(SN OMED) Diagnosis active 11/20/2024 Cutaneous peripheral T-cell lymphoma (disorder) 119087111(SN OMED) Diagnosis active 11/22/2024 Cutaneous peripheral T-cell lymphoma (disorder) 735503837(SN OMED) Diagnosis active 11/24/2024 Cutaneous peripheral T-cell lymphoma (disorder) 466211752(SN OMED) Diagnosis active 11/27/2024 Cutaneous peripheral T-cell lymphoma (disorder) 918906278(SN OMED) Diagnosis active 11/29/2024 Cutaneous peripheral T-cell lymphoma (disorder) 325852730(SN OMED) Diagnosis active 12/01/2024 Cutaneous peripheral T-cell lymphoma (disorder) 251396930(SN OMED) Diagnosis active 12/04/2024 Cutaneous peripheral T-cell lymphoma (disorder) 499471603(SN OMED) Diagnosis active 12/13/2024 Cutaneous peripheral T-cell lymphoma (disorder) 755118926(SN OMED) Diagnosis active 12/15/2024 Cutaneous peripheral T-cell lymphoma (disorder) 713432603(SN OMED) Diagnosis active 12/18/2024 Cutaneous peripheral T-cell lymphoma (disorder) 864091852(SN OMED) Diagnosis active 12/20/2024 Cutaneous peripheral T-cell lymphoma (disorder) 573335883(SN OMED) Diagnosis active 12/25/2024 Cutaneous peripheral T-cell lymphoma (disorder) 346919230(SN OMED) Diagnosis active 12/27/2024 Cutaneous peripheral T-cell lymphoma (disorder) 993159599(SN OMED) Diagnosis active 12/29/2024 Cutaneous peripheral T-cell lymphoma (disorder) 778223695(SN OMED) Diagnosis active 01/01/2025 Cutaneous peripheral T-cell lymphoma (disorder) 656239210(SN OMED) Diagnosis active 01/17/2025 Cutaneous peripheral T-cell lymphoma (disorder) 881877831(SN OMED) Diagnosis active 01/19/2025 Cutaneous peripheral T-cell lymphoma (disorder) 374997910(SN OMED) Diagnosis active 01/22/2025 Cutaneous peripheral T-cell lymphoma (disorder) 187083669(SN OMED) Diagnosis active 01/24/2025 Cutaneous peripheral T-cell lymphoma (disorder) 236636596(SN OMED) Diagnosis active 02/02/2025 Cutaneous peripheral T-cell lymphoma (disorder) 090652534(SN OMED) Diagnosis active 02/05/2025 Cutaneous peripheral T-cell lymphoma (disorder) 803074844(SN OMED) Diagnosis active 01/31/2025 Cutaneous peripheral T-cell lymphoma (disorder) 341750325(SN OMED) Diagnosis active 02/07/2025 Cutaneous peripheral T-cell lymphoma (disorder) 111266722(SN OMED) Diagnosis active 02/12/2025 Cutaneous peripheral T-cell lymphoma (disorder) 365871352(SN OMED) Diagnosis active 02/14/2025 Cutaneous peripheral T-cell lymphoma (disorder) 509864223(SN OMED) Diagnosis active 02/16/2025 Cutaneous peripheral T-cell lymphoma (disorder) 640844842(SN OMED) Diagnosis active 02/19/2025 Cutaneous peripheral T-cell lymphoma (disorder) 705517148(SN OMED) Diagnosis active 02/21/2025 Cutaneous peripheral T-cell lymphoma (disorder) 270828424(SN OMED) Diagnosis active 02/26/2025 Cutaneous peripheral T-cell lymphoma (disorder) 329700758(SN OMED) Diagnosis active 02/28/2025 Cutaneous peripheral T-cell lymphoma (disorder) 311797650(SN OMED) Diagnosis active 03/02/2025 Cutaneous peripheral T-cell lymphoma (disorder) 164326634(SN OMED) Diagnosis active 03/09/2025 Cutaneous peripheral T-cell lymphoma (disorder) 545102951(SN OMED) Diagnosis active 03/12/2025 Cutaneous peripheral T-cell lymphoma (disorder) 661866285(SN OMED) Diagnosis active 03/14/2025 Cutaneous peripheral T-cell lymphoma (disorder) 181780016(SN OMED) Diagnosis active 03/19/2025 Cutaneous peripheral T-cell lymphoma (disorder) 794445029(SN OMED) Diagnosis active 03/21/2025 Cutaneous peripheral T-cell lymphoma (disorder) 811077774(SN OMED) Diagnosis active 03/26/2025 Cutaneous peripheral T-cell lymphoma (disorder) 513200788(SN OMED) Diagnosis active 03/27/2025 History of clinical finding in subject (situation) 092681201(SN OMED) Problem active Cutaneous peripheral T-cell lymphoma (disorder) 010942971(SN OMED) Diagnosis active 03/28/2025 Cutaneous peripheral T-cell lymphoma (disorder) 088643584(SN OMED) Diagnosis active 04/02/2025 Cutaneous peripheral T-cell lymphoma (disorder) 206658780(SN OMED) Diagnosis active 04/09/2025 Cutaneous peripheral T-cell lymphoma (disorder) 414376834(SN OMED) Diagnosis active 04/11/2025 Cutaneous peripheral T-cell lymphoma (disorder) 316600817(SN OMED) Diagnosis active 04/16/2025 Cutaneous peripheral T-cell lymphoma (disorder) 970300588(SN OMED) Diagnosis active 04/18/2025 Cutaneous peripheral T-cell lymphoma (disorder) 478240421(SN OMED) Diagnosis active 04/20/2025 Cutaneous peripheral T-cell lymphoma (disorder) 588628654(SN OMED) Diagnosis active 04/27/2025 Cutaneous peripheral T-cell lymphoma (disorder) 683156501(SN OMED) Diagnosis active 04/30/2025 Cutaneous peripheral T-cell lymphoma (disorder) 470476157(SN OMED) Diagnosis active 05/07/2025 Cutaneous peripheral T-cell lymphoma (disorder) 901016480(SN OMED) Diagnosis active 05/09/2025 Cutaneous peripheral T-cell lymphoma (disorder) 898354989(SN OMED) Diagnosis active 07/31/2025 Results No data Encounters Service provided at [facility], [address] [place] [address], [address], [place], [place] [id number]. Office phonenumber is [phone]. Office fax number is [phone]. Encounter Diagnosis Location Date / Time Type Disc harge Status [facility] 07/31/2025 18:15:00 [facility] Reason For Referral No data Procedures Procedure Date Documentation of current medications (pr ocedure) 07/31/2025 12:00 am UTC Documentation of current medications (pr ocedure) 07/31/2025 12:00 am UTC Phototherapy of skin (procedure) 025 12:00 am UTC Phototherapy of skin (procedure) 025 12:00 am UTC Phototherapy of skin (procedure) 025 12:00 am UTC Phototherapy of skin (procedure) 025 12:00 am UTC Phototherapy of skin (procedure) 025 12:00 am UTC Phototherapy of skin (procedure) 025 12:00 am UTC Phototherapy of skin (procedure) 025 12:00 am UTC Phototherapy of skin (procedure) 025 12:00 am UTC Phototherapy of skin (procedure) 025 12:00 am UTC Phototherapy of skin (procedure) 025 12:00 am UTC Phototherapy of skin (procedure) 025 12:00 am UTC Phototherapy of skin (procedure) 025 12:00 am UTC Phototherapy of skin (procedure) 025 12:00 am UTC Phototherapy of skin (procedure) 025 12:00 am UTC Phototherapy of skin (procedure) 025 12:00 am UTC Phototherapy of skin (procedure) 025 12:00 am UTC Phototherapy of skin (procedure) 025 12:00 am UTC Phototherapy of skin (procedure) 025 12:00 am UTC Phototherapy of skin (procedure) 025 12:00 am UTC Phototherapy of skin (procedure) 025 12:00 am UTC Phototherapy of skin (procedure) 025 12:00 am UTC Phototherapy of skin (procedure) 025 12:00 am UTC Phototherapy of skin (procedure) 025 12:00 am UTC Phototherapy of skin (procedure) 025 12:00 am UTC Phototherapy of skin (procedure) 025 12:00 am UTC Phototherapy of skin (procedure) 025 12:00 am UTC Phototherapy of skin (procedure) 025 12:00 am UTC Phototherapy of skin (procedure) 025 12:00 am UTC Phototherapy of skin (procedure) 025 12:00 am UTC Phototherapy of skin (procedure) 025 12:00 am UTC Phototherapy of skin (procedure) 025 12:00 am UTC Phototherapy of skin (procedure) 025 12:00 am UTC Phototherapy of skin (procedure) 025 12:00 am UTC Phototherapy of skin (procedure) 025 12:00 am UTC Phototherapy of skin (procedure) 025 12:00 am UTC Phototherapy of skin (procedure) 025 12:00 am UTC Phototherapy of skin (procedure) 025 12:00 am UTC Phototherapy of skin (procedure) 025 12:00 am UTC Phototherapy of skin (procedure) 025 12:00 am UTC Phototherapy of skin (procedure) 025 12:00 am UTC Phototherapy of skin (procedure) 025 12:00 am UTC Phototherapy of skin (procedure) 025 12:00 am UTC Phototherapy of skin (procedure) 025 12:00 am UTC Phototherapy of skin (procedure) 025 12:00 am UTC Phototherapy of skin (procedure) 025 12:00 am UTC Phototherapy of skin (procedure) 025 12:00 am UTC Phototherapy of skin (procedure) 025 12:00 am UTC Phototherapy of skin (procedure) 025 12:00 am UTC Phototherapy of skin (procedure) 025 12:00 am UTC Phototherapy of skin (procedure) 025 12:00 am UTC Phototherapy of skin (procedure) 025 12:00 am UTC Phototherapy of skin (procedure) 025 12:00 am UTC Phototherapy of skin (procedure) 025 12:00 am UTC Phototherapy of skin (procedure) 025 12:00 am UTC Phototherapy of skin (procedure) 025 12:00 am UTC Phototherapy of skin (procedure) 025 12:00 am UTC Phototherapy of skin (procedure) 025 12:00 am UTC Phototherapy of skin (procedure) 025 12:00 am UTC Phototherapy of skin (procedure) 025 12:00 am UTC Phototherapy of skin (procedure) 025 12:00 am UTC Phototherapy of skin (procedure) 025 12:00 am UTC Phototherapy of skin (procedure) 025 12:00 am UTC Phototherapy of skin (procedure) 025 12:00 am UTC Phototherapy of skin (procedure) 025 12:00 am UTC Phototherapy of skin (procedure) 025 12:00 am UTC Phototherapy of skin (procedure) 025 12:00 am UTC Phototherapy of skin (procedure) 024 12:00 am UTC Phototherapy of skin (procedure) 024 12:00 am UTC Phototherapy of skin (procedure) 024 12:00 am UTC Phototherapy of skin (procedure) 024 12:00 am UTC Phototherapy of skin (procedure) 024 12:00 am UTC Phototherapy of skin (procedure) 024 12:00 am UTC Phototherapy of skin (procedure) 024 12:00 am UTC Phototherapy of skin (procedure) 024 12:00 am UTC Phototherapy of skin (procedure) 024 12:00 am UTC Phototherapy of skin (procedure) 024 12:00 am UTC Phototherapy of skin (procedure) 024 12:00 am UTC Phototherapy of skin (procedure) 024 12:00 am UTC Phototherapy of skin (procedure) 024 12:00 am UTC Phototherapy of skin (procedure) 024 12:00 am UTC Phototherapy of skin (procedure) 024 12:00 am UTC Phototherapy of skin (procedure) 024 12:00 am UTC Phototherapy of skin (procedure) 024 12:00 am UTC Phototherapy of skin (procedure) 024 12:00 am UTC Phototherapy of skin (procedure) 024 12:00 am UTC Phototherapy of skin (procedure) 024 12:00 am UTC Phototherapy of skin (procedure) 024 12:00 am UTC Phototherapy of skin (procedure) 024 12:00 am UTC Phototherapy of skin (procedure) 024 12:00 am UTC Phototherapy of skin (procedure) 024 12:00 am UTC Phototherapy of skin (procedure) 024 12:00 am UTC Phototherapy of skin (procedure) 024 12:00 am UTC Phototherapy of skin (procedure) 024 12:00 am UTC Phototherapy of skin (procedure) 024 12:00 am UTC Phototherapy of skin (procedure) 024 12:00 am UTC Phototherapy of skin (procedure) 024 12:00 am UTC Injection of triamcinolone (procedure) 0 04/27/2024 12:00 am UTC Phototherapy of skin (procedure) 024 12:00 am UTC Phototherapy of skin (procedure) 024 12:00 am UTC Phototherapy of skin (procedure) 024 12:00 am UTC Phototherapy of skin (procedure) 024 12:00 am UTC Phototherapy of skin (procedure) 024 12:00 am UTC Phototherapy of skin (procedure) 024 12:00 am UTC Phototherapy of skin (procedure) 024 12:00 am UTC Phototherapy of skin (procedure) 024 12:00 am UTC Injection of triamcinolone (procedure) 0 11/17/2023 12:00 am UTC Shave biopsy (procedure) 10/04/2023 12:0 0 am UTC Injection of triamcinolone (procedure) 0 10/04/2023 12:00 am UTC Shave biopsy (procedure) 03/17/2023 12:0 0 am UTC Punch biopsy (procedure) 06/16/2021 12:0 0 am UTC Documentation of past medical history (p rocedure) Documentation of past medical history (p rocedure) Documentation of past medical history (p rocedure) Documentation of past medical history (p rocedure) Documentation of past medical history (p rocedure) Documentation of past medical history (p rocedure) Documentation of past medical history (p rocedure) Documentation of past medical history (p rocedure) Documentation of past medical history (p rocedure) Documentation of past medical history (p rocedure) Documentation of past medical history (p rocedure) Documentation of past medical history (p rocedure) Documentation of past medical history (p rocedure) Documentation of past medical history (p rocedure) Documentation of past medical history (p rocedure) Documentation of past medical history (p rocedure) Documentation of past medical history (p rocedure) Documentation of past medical history (p rocedure) Documentation of past medical history (p rocedure) Documentation of past medical history (p rocedure) Documentation of past medical history (p rocedure) Documentation of past medical history (p rocedure) Documentation of past medical history (p rocedure) Documentation of past medical history (p rocedure) Documentation of past medical history (p rocedure) Documentation of past medical history (p rocedure) Documentation of past medical history (p rocedure) Documentation of past medical history (p rocedure) Documentation of past medical history (p rocedure) Documentation of past medical history (p rocedure) Documentation of past medical history (p rocedure) Documentation of past medical history (p rocedure) Documentation of past medical history (p rocedure) Documentation of past medical history (p rocedure) Documentation of past medical history (p rocedure) Documentation of past medical history (p rocedure) Documentation of past medical history (p rocedure) Documentation of past medical history (p rocedure) Documentation of past medical history (p rocedure) Documentation of past medical history (p rocedure) Documentation of past medical history (p rocedure) Documentation of past medical history (p rocedure) Documentation of past medical history (p rocedure) Documentation of past medical history (p rocedure) Documentation of past medical history (p rocedure) Documentation of past medical history (p rocedure) Documentation of past medical history (p rocedure) Documentation of past medical history (p rocedure) Documentation of past medical history (p rocedure) Documentation of past medical history (p rocedure) Documentation of past medical history (p rocedure) Documentation of past medical history (p rocedure) Documentation of past medical history (p rocedure) Documentation of past medical history (p rocedure) Documentation of past medical history (p rocedure) Documentation of past medical history (p rocedure) Documentation of past medical history (p rocedure) Documentation of past medical history (p rocedure) Documentation of past medical history (p rocedure) Documentation of past medical history (p rocedure) Documentation of past medical history (p rocedure) Documentation of past medical history (p rocedure) Documentation of past medical history (p rocedure) Documentation of past medical history (p rocedure) Documentation of past medical history (p rocedure) Documentation of past medical history (p rocedure) Documentation of past medical history (p rocedure) Documentation of past medical history (p rocedure) Documentation of past medical history (p rocedure) Documentation of past medical history (p rocedure) Documentation of past medica l history (procedure) Pancreatic stone removal Review Of Systems No Data Plan of Care Code Detail Instructions 912253 clobetasol 0.05 % topical cream Apply twice daily to CTCL rash up to 2 weeks/month as needed. 556994 ketoconazole 2 % topical cream A pply thin layer to rash on chest BID until clear and PRN flares. 655101 betamethasone valerate 0.1 % lot ion Apply thin layer twice a day to area on scalp for 2 weeks at a time. 599199 clobetasol 0.05 % topical foam A pply thin layer to area of itch on scalp twice daily for 2 weeks at a time, taking a 1 week break. 141389 tacrolimus 0.1 % topical ointmen t Apply daily to affected areas 695657 betamethasone diprop ionate 0.05 % topical cream AAA BID PRN rash betamethasone diprop ionate 0.05 % topical ointment Apply to rash BID up to 2 weeks on, 1 week off as needed betamethasone diprop ionate 0.05 % topical ointment Apply to rash BID up to 2 weeks on, 1 week off as needed Instructions No Data Social History Code Activity Start Date End Date [id number] (SNOMED) Never smoker Sex Male Sexual orientation Unspecified Gender identity Unspecified Vital Signs No data Insurances Coverage Status Coverage Type Relationship to Subscriber Member Identifier Subscriber Identifier Group Identifier Payer Identifier Active 1 Self [id number] Active 2 Self [id number]
--- OUTSIDE RECORDS SUMMARY | 2025-08-02 21:20 | XMS_ITS | Encounter Summary ---
Author Organization [facility] Address [address] [place] [phone] Phone Care Team Providers Care Child Care Giver Name Role Phone Tyrell Perry MD Primary Care Provider + [phone] Encounter Details Date Type Department Care Team (Late st Contact Info) Description 03/27/2019 Procedure Pass [facility], [facility] [address] [place] [address], 2[address] [place] [address] Social History Tobacco Use Types Packs/Day Years [...] Description 10/31/2025 10:00 AM EDT Office Visit [facility] [address], [address]th [place] [address] Sandip Callejas PA-C [address] [place] [id number] [email or web address] documented as of this encounter Visit Diagnoses Not on filedocumented in this encounter Care Teams Child Care Giver Relationship Specialty Start Date End Date Tyrell Perry MD [address] [place] [address] [email or web address] PCP - General Family Medicine 03/15/19 documented as of this encounter Additional Source Comments The information contained in this document represents components of the legal health record. It is not the complete legal health record.[facility]
--- OUTSIDE RECORDS SUMMARY | 2025-08-02 21:20 | XMS_ITS | Encounter Summary ---
Author Organization [facility] Address [address] [facility] [address] [place] [address] Phone Care Team Providers Care Screen Printing Inspector Name Role Phone Tyrell Perry MD Primary Care Provider + [phone] Encounter Details Date Type Department Care Team (Latest Contact Info) Description 08/31/2019 Transcribe Orders [facility] [address] [place] [address] Sharad Horn MD [address] [address] [email or web address] Acute pancreatitis, unspecified complication status, unspecified pancreatitis [...] Description 10/31/2025 10:00 AM EDT Office Visit [facility] [address] [place] [address], [address]th [place] [address] Sandip Callejas PA-C [address] [place] [address] [email or web address] Pending Results Name Type Priority Associated Diagnoses Date /Time Miscellaneous lab test Lab Routine Acute pancreatitis, unspecified complication status, unspecified pancreatitis type Chronic pancreatitis, unspecified pancreatitis type Nausea 08/31/2019 2:16 PM EST documented as of this encounter Results * (ABNORMAL) Lipid panel (08/31/2019 2:16 PM EST) HDL 51 mg/dL [facility] Comment: Interpretation <40 mg/dL: Low HDL cholesterol (major risk factor for CHD) Greater than or equal to 60 mg/dL: High HDL cholesterol ( negative risk factor for CHD) HDL - cholesterol is affected by a number of factors, e.g. smoking, excerise, hormones, sex and age. CHOLESTEROL 153 0 - 240 mg/dL [facility] TRIGLYCERIDES 191(H) 30 - 160 mg/dL [facility] LDL 64 50 - 129 mg/dL [facility] Comment: LDL levels in terms of risk for coronary heart disease: <100 mg/dL: Optimal 100-129 mg/dL: Near or above optimal 130-159 mg/dL: Borderline high 160-189 mg/dL: High >190 mg/dL: Very High CARDIAC RISK RATIO 3.0(L) 3.4 - 5.0 C [facility] Blood 08/31/2019 2:16 PM EST 08/31/2019 2:22 PM EST us Sharad Horn MD LAB BLOOD BKR ORDERABLES Fin al Result Performing Organization Address City/State/[facility] Co de Phone Number [address] [address] * Lipase (08/31/2019 2:16 PM EST) LIPASE 33 16 - 63 U/L [facility] Blood 08/31/2019 2:16 PM EST 08/31/2019 2:22 PM EST us Sharad Horn MD LAB BLOOD BKR ORDERABLES Fin al Result [address] [address] * (ABNORMAL) Comprehensive metabolic panel (08/31/2019 2:16 PM EST) SODIUM 143 133 - 146 mmol/L [facility] POTASSIUM 3.9 3.3 - 5.1 mmol/L [facility] CHLORIDE 102 96 - 108 mmol/L [facility] CO2 22 21 - 35 mmol/L [facility] BUN 12 6 - 19 mg/dL [facility] CREATININE 1.20 0.5 - 1.5 mg/dL [facility] GLUCOSE 94 70 - 99 mg/dL [facility] ALBUMIN 5.0(H) 3.9 - 4.8 g/dL [facility] TOTAL PROTEIN 8.9(H) 6.5 - 8.0 g/dL [facility] CALCIUM 10.1 8.4 - 10.3 mg/dL [facility] ALKALINE PHOSPHATASE 52 39 - 117 U/L [facility] TOTAL BILIRUBIN 0.4 0.0 - 1.2 mg/dL [facility] AST 46(H) 0 - 37 U/L [facility] ALT 29 0 - 40 U/L [facility] GLOBULIN 3.9 1 - 4.8 g/dL [facility] EGFR 72 >59 mL/min/1.7 3m2 [facility] Comment:If patient is black, multiply result by 1.159. Estimated glomerular filtration rate calculated using the CKD-EPI equation. ANION GAP 23(H) 10 - 20 mmol/L [facility] Blood 08/31/2019 2:16 PM EST 08/31/2019 2:22 PM EST us Sharad Horn MD LAB BLOOD BKR ORDERABLES Fin al Result [address] [address] * (ABNORMAL) CBC (08/31/2019 2:16 PM EST) WBC 7.01 3.40 - 11.20 K/uL [facility] RBC 5.01 4.50 - 5.50 M/uL [facility] HGB 14.1 13.0 - 17.0 g/dL [facility] HCT 42.4 40.0 - 51.0 % [facility] PLT 202 130 - 400 K/uL [facility] MCV 84.6 79.0 - 98.0 fL [facility] MCH 28.1 27.0 - 34.8 pg [facility] MCHC 33.3 31.5 - 36.0 g/dL [facility] RDW 13.7 10.8 - 14.6 % [facility] MPV 13.6(H) 9.4 - 12.4 [facility] NRBC 0.00 0.00 /100 WBCs [facility] ABSOLUTE NRBC 0.00 0.00 K/uL [facility] Blood 08/31/2019 2:16 PM EST 08/31/2019 2:22 PM EST Sharad Horn MD LAB BLOOD BKR ORDERABLES Fin al Result Performing Organization Address [facility] Co de Phone Number [address] [address] * Amylase (08/31/2019 2:16 PM EST) AMYLASE 89 28 - 100 U/L [facility] Blood 08/31/2019 2:16 PM EST 08/31/2019 2:22 PM EST Sharad Horn MD LAB BLOOD BKR ORDERABLES Fin al Result Performing Organization Address [facility] de Phone Number [address] [address] documented in this encounter Visit Diagnoses Diagnosis Acute pancreatitis, unspecified complication status, unspecified pancreatitis type- Primary Chronic pancreatitis, unspecified pancreatitis type Nausea Nausea alone documented in this encounter Care Teams Screen Printing Inspector Relationship Specialty Start Date End Date Tyrell Perry [place] [address] [email or web address] PCP - General Family Medicine 03/15/19 documented as of this encounter Additional Source Comments The information contained in this document represents components of the legal health record. It is not the complete legal health record.[facility]
--- OUTSIDE RECORDS SUMMARY | 2025-08-02 21:20 | XMS_ITS | Encounter Summary ---
Author Organization [facility] Address [address] [place] [address] Phone Care Team Providers Care Sales And Retail Management Recruiter Name Role Phone Tyrell Perry MD Primary Care Provider + [phone] Tyrell Perry MD Primary Care Provider + [phone] Reason for Referral * Consultation (Within 1 month) - Closed Specialty Diagnoses / Procedures Referred By Contac t Referred To Contact Gastroenterology Diagnoses Acute pancreatitis without infection or necrosis, unspecified pancreatitis type Hypertriglyceridemia Tyrell Perry MD Phone: tel: fax: mailto:[email or web address] Jailyn Ding MD Phone: tel: fax: mailto:[email or web address] Referral ID Status Reason Start Date Expiration Date Visits Re quested Visits Authorized [id number] Closed 03/02/2019 03/01/2020 1 1 Encounter Details Date Type Department Care Team (Latest Contact Info) Description 03/02/2019 Transcribe Orders [facility] [address] [facility] 5th [place] [address] Tyrell Perry MD [address] [place] [address] [email or web address] Acute pancreatitis without infection or necrosis, unspecified [...] Description 10/31/2025 10:00 AM EDT Office Visit [facility] [address] [place] [address] Sandip Callejas PA-C [address] [place] [address] [email or web address] Scheduled Referrals Name Type Priority Associated Diagnoses Order Schedule Ambulatory referral to [facility] (Consult Requests Only) Outpatient Referral Routine Acute pancreatitis without infection or necrosis, unspecified pancreatitis type Hypertriglyceridemi a Ordered: 03/02/2019 documented as of this encounter Visit Diagnoses Diagnosis Acute pancreatitis without infection or necrosis, unspecified pancreatitis type- Primary Hypertriglyceridemia Pure hyperglyceridemia documented in this encounter Care Teams Sales And Retail Management Recruiter Relationship Specialty Start Date End Date Tyrell Perry MD [address] [place] [address] [email or web address] PCP - General Family Medicine 06/20/18 03/14/19 Tyrell Perry MD [address] [place] [address] [email or web address] PCP - General Family Medicine 03/15/19 documented as of this encounter Additional Source Comments The information contained in this document represents components of the legal health record. It is not the complete legal health record.[facility]
--- OUTSIDE RECORDS SUMMARY | 2025-08-02 21:20 | XMS_ITS ---
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 He was seen on March 27, 2025, at which time the following treatment recommendations were given: Continue the following treatments: :UVB- pt currently undergoing second round of treatment with improvement Betamethasone PRN (he may occlude with cotton gloves nightly)CeraVe moisturizer. Since then, the patient states the cutaneous t-cell lymphoma (ctcl) is worse.The patient presents for further evaluation and management and focused visit.The patient followed the treatment plan as directed.Interval History: Pt states he had to d/c phototherapy due to his recent surgery for pancreatic stones. Allergies, Adverse Reactions, Alerts Substance RxNorm Reaction(s) [...] ne dipropionat e betameth asone dipropio sidra 568066 0.05 % Topica l cream 01/07/20 23 suspend ed AAA BID PRN rash betamethaso ne valerate betameth asone valerate 0.1 % Topica l apply thin layer lotio n BID PRN 07/26/20 24 active Appl y thin laye r twic e a day to area on scal p for 2 week s at a time . clobetasol clobet[place] 245694 0.05 % Topica l foam 07/26/20 24 suspend ed Appl y thin laye r to area of itch on scal p twic e oralia y for 2 week s at a time , taki ng a 1 week stanley k. clobetasol [place]et[place] 437156 0.05 % Topica l cream BID 09/21/19 25 suspend ed Appl y twic e oralia y to CTCL rash up to 2 week s/mo nth as need ed. ketoconazol e ketocona zole 886643 2 % Topica l cream 09/21/19 25 suspend ed Appl y thin laye r to rash on ches t BID unti l mike r and PRN flar es. tacrolimus tacrolim us 416325 0.1 % Topica l ointm ent 03/21/20 24 suspend ed Appl y oralia y to affe cted area s alogliptin- pioglitazon e aloglipt in-piogl itazone Oral suspend ed Creon lipase-p rotease- amylase 12,000-38 ,000 -60,000 unit Oral 1 capsu le,de layed relea se(DR /EC) QD active fenofibrate fenofibr ate 427165 54 mg Oral 1 table t QD [...] QD 08/04/20 17 active oxycodone oxycodon e 7757499 10 mg Oral 1 table t q6h 02/19/20 16 active pioglitazon e pioglita zone Oral suspend ed pioglitazon e pioglita zone 30 mg Oral 1 table t QD active rosuvastati n rosuvast atin 40 mg Oral 1 table t QD active sumatriptan succinate sumatrip glez succinat e 800912 100 mg Oral 1 table t PRN 02/19/20 16 active tizanidine tizanidi ne Oral suspend ed zolpidem zolpidem 757010 10 mg Oral 1 table t QD [...] 15 suspend ed CLOBETASOL 0.05% CREAM NULL 07/24 03/11 13 suspend ed Crestor NULL 02/19/20 16 [...] te of Resolution Increased blood pressure (finding) 97269299(SNO MED) Problem active Disorder of skin and/or subcutaneous tissue (disorder) 95974796(SNO MED) Diagnosis active 02/20/2015 Psoriasis (disorder) 8181602(SNOM ED) Diagnosis active 01/16/2015 Other specified dermatitis L30.8(ICD-10 ) Diagnosis active 11/04/2020 Eczema (disorder) 99362744(SNO MED) Diagnosis active 02/05/2021 Cutaneous peripheral T-cell lymphoma (disorder) 161363483(SN OMED) Diagnosis active 03/10/2021 Inflammatory dermatosis (disorder) 529347050(SN OMED) Diagnosis active 06/16/2021 Cutaneous peripheral T-cell lymphoma (disorder) 632119281(SN OMED) Diagnosis active 01/06/2023 Anxiety disorder (disorder) 079793895(SN OMED) Problem active History of skin disorder (situation) 137115945(SN OMED) Problem active Cutaneous peripheral T-cell lymphoma (disorder) 082519843(SN OMED) Diagnosis active 03/17/2023 Inflammatory dermatosis (disorder) 440190608(SN OMED) Diagnosis active 03/17/2023 Cutaneous peripheral T-cell lymphoma (disorder) 563918091(SN OMED) Diagnosis active 03/29/2023 Cutaneous peripheral T-cell lymphoma (disorder) 529195819(SN OMED) Diagnosis active 03/31/2023 Cutaneous peripheral T-cell lymphoma (disorder) 021321405(SN OMED) Diagnosis active 04/02/2023 Cutaneous peripheral T-cell lymphoma (disorder) 856549489(SN OMED) Diagnosis active 04/05/2023 Cutaneous peripheral T-cell lymphoma (disorder) 841651285(SN OMED) Diagnosis active 04/07/2023 Cutaneous peripheral T-cell lymphoma (disorder) 385767847(SN OMED) Diagnosis active 04/12/2023 Cutaneous peripheral T-cell lymphoma (disorder) 407078092(SN OMED) Diagnosis active 04/09/2023 Cutaneous peripheral T-cell lymphoma (disorder) 880904135(SN OMED) Diagnosis active 04/14/2023 Cutaneous peripheral T-cell lymphoma (disorder) 645535819(SN OMED) Diagnosis active 04/16/2023 Cutaneous peripheral T-cell lymphoma (disorder) 418466729(SN OMED) Diagnosis active 04/19/2023 Cutaneous peripheral T-cell lymphoma (disorder) 910498129(SN OMED) Diagnosis active 04/21/2023 Cutaneous peripheral T-cell lymphoma (disorder) 914685496(SN OMED) Diagnosis active 04/28/2023 Cutaneous peripheral T-cell lymphoma (disorder) 212828076(SN OMED) Diagnosis active 05/03/2023 Cutaneous peripheral T-cell lymphoma (disorder) 436355931(SN OMED) Diagnosis active 04/30/2023 Cutaneous peripheral T-cell lymphoma (disorder) 163589283(SN OMED) Diagnosis active 05/10/2023 Cutaneous peripheral T-cell lymphoma (disorder) 943491321(SN OMED) Diagnosis active 05/12/2023 Cutaneous peripheral T-cell lymphoma (disorder) 298549013(SN OMED) Diagnosis active 05/14/2023 Cutaneous peripheral T-cell lymphoma (disorder) 304934996(SN OMED) Diagnosis active 05/17/2023 Cutaneous peripheral T-cell lymphoma (disorder) 541102572(SN OMED) Diagnosis active 05/19/2023 Cutaneous peripheral T-cell lymphoma (disorder) 351584009(SN OMED) Diagnosis active 05/24/2023 Cutaneous peripheral T-cell lymphoma (disorder) 387672274(SN OMED) Diagnosis active 05/26/2023 Cutaneous peripheral T-cell lymphoma (disorder) 482712010(SN OMED) Diagnosis active 05/28/2023 Cutaneous peripheral T-cell lymphoma (disorder) 596184238(SN OMED) Diagnosis active 05/31/2023 Cutaneous peripheral T-cell lymphoma (disorder) 734315625(SN OMED) Diagnosis active 06/02/2023 Cutaneous peripheral T-cell lymphoma (disorder) 395216514(SN OMED) Diagnosis active 06/04/2023 Cutaneous peripheral T-cell lymphoma (disorder) 869520299(SN OMED) Diagnosis active 06/07/2023 Cutaneous peripheral T-cell lymphoma (disorder) 541427304(SN OMED) Diagnosis active 06/09/2023 Cutaneous peripheral T-cell lymphoma (disorder) 995606776(SN OMED) Diagnosis active 06/11/2023 Cutaneous peripheral T-cell lymphoma (disorder) 147576328(SN OMED) Diagnosis active 06/14/2023 Cutaneous peripheral T-cell lymphoma (disorder) 834428599(SN OMED) Diagnosis active 06/16/2023 Cutaneous peripheral T-cell lymphoma (disorder) 446721580(SN OMED) Diagnosis active 06/18/2023 Cutaneous peripheral T-cell lymphoma (disorder) 020204961(SN OMED) Diagnosis active 06/21/2023 Cutaneous peripheral T-cell lymphoma (disorder) 267252466(SN OMED) Diagnosis active 06/23/2023 Cutaneous peripheral T-cell lymphoma (disorder) 602835551(SN OMED) Diagnosis active 06/23/2023 Neoplasm of uncertain behavior of skin (disorder) 58620566(SNO MED) Diagnosis active 10/04/2023 Cutaneous peripheral T-cell lymphoma (disorder) 954177751(SN OMED) Diagnosis active 10/04/2023 Cutaneous peripheral T-cell lymphoma (disorder) 750930434(SN OMED) Diagnosis active 11/17/2023 Cutaneous peripheral T-cell lymphoma (disorder) 272127477(SN OMED) Diagnosis active 03/21/2024 Disorder of nail (disorder) 73291067(SNO MED) Diagnosis active 03/21/2024 Disorder of skin (disorder) 75277892(SNO MED) Diagnosis active 03/21/2024 Cutaneous peripheral T-cell lymphoma (disorder) 795912551(SN OMED) Diagnosis active 04/03/2024 Cutaneous peripheral T-cell lymphoma (disorder) 320043710(SN OMED) Diagnosis active 03/31/2024 Cutaneous peripheral T-cell lymphoma (disorder) 996370209(SN OMED) Diagnosis active 04/05/2024 Cutaneous peripheral T-cell lymphoma (disorder) 974863518(SN OMED) Diagnosis active 04/07/2024 Cutaneous peripheral T-cell lymphoma (disorder) 114167744(SN OMED) Diagnosis active 04/10/2024 Cutaneous peripheral T-cell lymphoma (disorder) 693527165(SN OMED) Diagnosis active 04/19/2024 Cutaneous peripheral T-cell lymphoma (disorder) 532689616(SN OMED) Diagnosis active 04/21/2024 Cutaneous peripheral T-cell lymphoma (disorder) 013199680(SN OMED) Diagnosis active 04/26/2024 Neoplasm of uncertain behavior of skin (disorder) 02931480(SNO MED) Diagnosis active 04/27/2024 Cutaneous peripheral T-cell lymphoma (disorder) 057130161(SN OMED) Diagnosis active 04/27/2024 Cutaneous peripheral T-cell lymphoma (disorder) 343248482(SN OMED) Diagnosis active 05/01/2024 Cutaneous peripheral T-cell lymphoma (disorder) 271822588(SN OMED) Diagnosis active 04/28/2024 Cutaneous peripheral T-cell lymphoma (disorder) 276381635(SN OMED) Diagnosis active 05/03/2024 Cutaneous peripheral T-cell lymphoma (disorder) 710816836(SN OMED) Diagnosis active 05/08/2024 Cutaneous peripheral T-cell lymphoma (disorder) 706528750(SN OMED) Diagnosis active 05/05/2024 Cutaneous peripheral T-cell lymphoma (disorder) 833160437(SN OMED) Diagnosis active 05/12/2024 Cutaneous peripheral T-cell lymphoma (disorder) 671804639(SN OMED) Diagnosis active 05/15/2024 Cutaneous peripheral T-cell lymphoma (disorder) 304318476(SN OMED) Diagnosis active 05/17/2024 Cutaneous peripheral T-cell lymphoma (disorder) 458385791(SN OMED) Diagnosis active 05/26/2024 Cutaneous peripheral T-cell lymphoma (disorder) 920365531(SN OMED) Diagnosis active 05/24/2024 Cutaneous peripheral T-cell lymphoma (disorder) 953174511(SN OMED) Diagnosis active 05/29/2024 Cutaneous peripheral T-cell lymphoma (disorder) 288623934(SN OMED) Diagnosis active 05/31/2024 Cutaneous peripheral T-cell lymphoma (disorder) 429903337(SN OMED) Diagnosis active 06/02/2024 Cutaneous peripheral T-cell lymphoma (disorder) 556563603(SN OMED) Diagnosis active 06/05/2024 Cutaneous peripheral T-cell lymphoma (disorder) 655278359(SN OMED) Diagnosis active 06/09/2024 Cutaneous peripheral T-cell lymphoma (disorder) 946617007(SN OMED) Diagnosis active 06/12/2024 Cutaneous peripheral T-cell lymphoma (disorder) 161371121(SN OMED) Diagnosis active 06/14/2024 Cutaneous peripheral T-cell lymphoma (disorder) 185540482(SN OMED) Diagnosis active 06/14/2024 Epidermoid cyst of skin (disorder) 995163827(SN OMED) Diagnosis active 06/14/2024 Cutaneous peripheral T-cell lymphoma (disorder) 746817856(SN OMED) Diagnosis active 06/16/2024 Cutaneous peripheral T-cell lymphoma (disorder) 490734867(SN OMED) Diagnosis active 06/23/2024 Cutaneous peripheral T-cell lymphoma (disorder) 572662247(SN OMED) Diagnosis active 06/26/2024 Cutaneous peripheral T-cell lymphoma (disorder) 463075517(SN OMED) Diagnosis active 06/30/2024 Cutaneous peripheral T-cell lymphoma (disorder) 967610283(SN OMED) Diagnosis active 07/03/2024 Cutaneous peripheral T-cell lymphoma (disorder) 650207391(SN OMED) Diagnosis active 07/05/2024 Cutaneous peripheral T-cell lymphoma (disorder) 712837055(SN OMED) Diagnosis active 07/07/2024 Cutaneous peripheral T-cell lymphoma (disorder) 532515528(SN OMED) Diagnosis active 07/10/2024 Cutaneous peripheral T-cell lymphoma (disorder) 662088110(SN OMED) Diagnosis active 07/17/2024 Cutaneous peripheral T-cell lymphoma (disorder) 413169425(SN OMED) Diagnosis active 07/14/2024 Cutaneous peripheral T-cell lymphoma (disorder) 886063486(SN OMED) Diagnosis active 07/24/2024 Cutaneous peripheral T-cell lymphoma (disorder) 374568844(SN OMED) Diagnosis active 07/26/2024 Cutaneous peripheral T-cell lymphoma (disorder) 734226215(SN OMED) Diagnosis active 07/26/2024 Cutaneous peripheral T-cell lymphoma (disorder) 408359800(SN OMED) Diagnosis active 07/31/2024 Cutaneous peripheral T-cell lymphoma (disorder) 917552799(SN OMED) Diagnosis active 08/28/2024 Cutaneous peripheral T-cell lymphoma (disorder) 142338706(SN OMED) Diagnosis active 09/01/2024 Cutaneous peripheral T-cell lymphoma (disorder) 416186118(SN OMED) Diagnosis active 09/04/2024 Cutaneous peripheral T-cell lymphoma (disorder) 874705726(SN OMED) Diagnosis active 09/06/2024 Cutaneous peripheral T-cell lymphoma (disorder) 624878228(SN OMED) Diagnosis active 09/08/2024 Cutaneous peripheral T-cell lymphoma (disorder) 849901365(SN OMED) Diagnosis active 09/13/2024 Cutaneous peripheral T-cell lymphoma (disorder) 943694366(SN OMED) Diagnosis active 09/18/2024 Cutaneous peripheral T-cell lymphoma (disorder) 108235586(SN OMED) Diagnosis active 09/15/2024 Cutaneous peripheral T-cell lymphoma (disorder) 685559577(SN OMED) Diagnosis active 09/20/2024 Cutaneous peripheral T-cell lymphoma (disorder) 213238559(SN OMED) Diagnosis active 09/21/2024 Seborrheic dermatitis (disorder) 92795790(SNO MED) Diagnosis active 09/21/2024 Hemangioma of skin and subcutaneous tissue (disorder) 540080764(SN OMED) Diagnosis active 09/21/2024 Neoplasm of uncertain behavior of skin (disorder) 07328279(SNO MED) Diagnosis active 09/21/2024 Inflammatory dermatosis (disorder) 713305605(SN OMED) Diagnosis active 09/21/2024 Cutaneous peripheral T-cell lymphoma (disorder) 018363808(SN OMED) Diagnosis active 09/27/2024 Cutaneous peripheral T-cell lymphoma (disorder) 141441796(SN OMED) Diagnosis active 09/29/2024 Cutaneous peripheral T-cell lymphoma (disorder) 553796234(SN OMED) Diagnosis active 10/23/2024 Cutaneous peripheral T-cell lymphoma (disorder) 228345271(SN OMED) Diagnosis active 10/25/2024 Cutaneous peripheral T-cell lymphoma (disorder) 390599789(SN OMED) Diagnosis active 10/27/2024 Cutaneous peripheral T-cell lymphoma (disorder) 002434488(SN OMED) Diagnosis active 10/30/2024 Cutaneous peripheral T-cell lymphoma (disorder) 274696377(SN OMED) Diagnosis active 11/03/2024 Cutaneous peripheral T-cell lymphoma (disorder) 463605413(SN OMED) Diagnosis active 11/15/2024 Cutaneous peripheral T-cell lymphoma (disorder) 273572909(SN OMED) Diagnosis active 11/17/2024 Cutaneous peripheral T-cell lymphoma (disorder) 975045044(SN OMED) Diagnosis active 11/20/2024 Cutaneous peripheral T-cell lymphoma (disorder) 938743468(SN OMED) Diagnosis active 11/22/2024 Cutaneous peripheral T-cell lymphoma (disorder) 164438498(SN OMED) Diagnosis active 11/24/2024 Cutaneous peripheral T-cell lymphoma (disorder) 321347552(SN OMED) Diagnosis active 11/27/2024 Cutaneous peripheral T-cell lymphoma (disorder) 299711805(SN OMED) Diagnosis active 11/29/2024 Cutaneous peripheral T-cell lymphoma (disorder) 814945457(SN OMED) Diagnosis active 12/01/2024 Cutaneous peripheral T-cell lymphoma (disorder) 594774960(SN OMED) Diagnosis active 12/04/2024 Cutaneous peripheral T-cell lymphoma (disorder) 875383774(SN OMED) Diagnosis active 12/13/2024 Cutaneous peripheral T-cell lymphoma (disorder) 581514258(SN OMED) Diagnosis active 12/15/2024 Cutaneous peripheral T-cell lymphoma (disorder) 833029700(SN OMED) Diagnosis active 12/18/2024 Cutaneous peripheral T-cell lymphoma (disorder) 355026669(SN OMED) Diagnosis active 12/20/2024 Cutaneous peripheral T-cell lymphoma (disorder) 368485724(SN OMED) Diagnosis active 12/25/2024 Cutaneous peripheral T-cell lymphoma (disorder) 188394164(SN OMED) Diagnosis active 12/27/2024 Cutaneous peripheral T-cell lymphoma (disorder) 529921227(SN OMED) Diagnosis active 12/29/2024 Cutaneous peripheral T-cell lymphoma (disorder) 718553441(SN OMED) Diagnosis active 01/01/2025 Cutaneous peripheral T-cell lymphoma (disorder) 688939723(SN OMED) Diagnosis active 01/17/2025 Cutaneous peripheral T-cell lymphoma (disorder) 748168419(SN OMED) Diagnosis active 01/19/2025 Cutaneous peripheral T-cell lymphoma (disorder) 787154891(SN OMED) Diagnosis active 01/22/2025 Cutaneous peripheral T-cell lymphoma (disorder) 491587864(SN OMED) Diagnosis active 01/24/2025 Cutaneous peripheral T-cell lymphoma (disorder) 030044914(SN OMED) Diagnosis active 02/02/2025 Cutaneous peripheral T-cell lymphoma (disorder) 560418939(SN OMED) Diagnosis active 02/05/2025 Cutaneous peripheral T-cell lymphoma (disorder) 438259674(SN OMED) Diagnosis active 01/31/2025 Cutaneous peripheral T-cell lymphoma (disorder) 791713308(SN OMED) Diagnosis active 02/07/2025 Cutaneous peripheral T-cell lymphoma (disorder) 361745100(SN OMED) Diagnosis active 02/12/2025 Cutaneous peripheral T-cell lymphoma (disorder) 510815577(SN OMED) Diagnosis active 02/14/2025 Cutaneous peripheral T-cell lymphoma (disorder) 954526856(SN OMED) Diagnosis active 02/16/2025 Cutaneous peripheral T-cell lymphoma (disorder) 742634339(SN OMED) Diagnosis active 02/19/2025 Cutaneous peripheral T-cell lymphoma (disorder) 702658901(SN OMED) Diagnosis active 02/21/2025 Cutaneous peripheral T-cell lymphoma (disorder) 677126250(SN OMED) Diagnosis active 02/26/2025 Cutaneous peripheral T-cell lymphoma (disorder) 399677711(SN OMED) Diagnosis active 02/28/2025 Cutaneous peripheral T-cell lymphoma (disorder) 077807978(SN OMED) Diagnosis active 03/02/2025 Cutaneous peripheral T-cell lymphoma (disorder) 636565023(SN OMED) Diagnosis active 03/09/2025 Cutaneous peripheral T-cell lymphoma (disorder) 062504247(SN OMED) Diagnosis active 03/12/2025 Cutaneous peripheral T-cell lymphoma (disorder) 882238008(SN OMED) Diagnosis active 03/14/2025 Cutaneous peripheral T-cell lymphoma (disorder) 908660969(SN OMED) Diagnosis active 03/19/2025 Cutaneous peripheral T-cell lymphoma (disorder) 883335614(SN OMED) Diagnosis active 03/21/2025 Cutaneous peripheral T-cell lymphoma (disorder) 040346996(SN OMED) Diagnosis active 03/26/2025 Cutaneous peripheral T-cell lymphoma (disorder) 587971873(SN OMED) Diagnosis active 03/27/2025 History of clinical finding in subject (situation) 449051114(SN OMED) Problem active Cutaneous peripheral T-cell lymphoma (disorder) 278028713(SN OMED) Diagnosis active 03/28/2025 Cutaneous peripheral T-cell lymphoma (disorder) 367070085(SN OMED) Diagnosis active 04/02/2025 Cutaneous peripheral T-cell lymphoma (disorder) 124786947(SN OMED) Diagnosis active 04/09/2025 Cutaneous peripheral T-cell lymphoma (disorder) 342505819(SN OMED) Diagnosis active 04/11/2025 Cutaneous peripheral T-cell lymphoma (disorder) 643064538(SN OMED) Diagnosis active 04/16/2025 Cutaneous peripheral T-cell lymphoma (disorder) 672154507(SN OMED) Diagnosis active 04/18/2025 Cutaneous peripheral T-cell lymphoma (disorder) 371475531(SN OMED) Diagnosis active 04/20/2025 Cutaneous peripheral T-cell lymphoma (disorder) 996930306(SN OMED) Diagnosis active 04/27/2025 Cutaneous peripheral T-cell lymphoma (disorder) 763865886(SN OMED) Diagnosis active 04/30/2025 Cutaneous peripheral T-cell lymphoma (disorder) 972868494(SN OMED) Diagnosis active 05/07/2025 Cutaneous peripheral T-cell lymphoma (disorder) 092444940(SN OMED) Diagnosis active 05/09/2025 Cutaneous peripheral T-cell lymphoma (disorder) 231857806(SN OMED) Diagnosis active 07/31/2025 Results No data Encounters Service provided at [facility], [address] [place] [address], [address], [place], [place] [id number]. Office phonenumber is [phone]. Office fax number is [phone]. Encounter Diagnosis Location Date / Time Type Disc harge Status Cutaneous T-Cell Lymphoma (CTCL) (C84.A0) [facility] 07/31/2025 18:30:00 [facility] [id number] Reason For Referral No data Procedures Procedure Date Documentation of current medications (pr ocedure) 07/31/2025 12:00 am [facility] Phototherapy of skin (procedure) 025 12:00 am [facility] Phototherapy of skin (procedure) 025 12:00 am [facility] Phototherapy of skin (procedure) 025 12:00 am [facility] Phototherapy of skin (procedure) 025 12:00 am [facility] Phototherapy of skin (procedure) 025 12:00 am [facility] Phototherapy of skin (procedure) 025 12:00 am [...] (procedure) Pancreatic stone removal Review Of Systems Provider reviewed on Jul 31, 2025.A focused review of systems was performed including Integumentary.No Problems With Healing And No Problems With Scarring (hypertrophic Or Keloid). Assessment 1.Cutaneous T-Cell Lymphoma (CTCL)Prescription Medication Management: Plan - :Biopsy proven patch/plaque CTCL MF type, Stage T1 A/B (05/2021)Recommend to reinitiate phototherapy. He has been well controlled in past, but prematurely discontinued due to hospitalization for pancreatic stones 04/2025 I recommend continuing topical betamethasone to eczematous like lesions.FU in 2-3 months for recheck.;Continue Regimen - :UVBBetamethasone PRN (he may occlude with cotton gloves nightly)CeraVe moisturizer; Discontinue Regimen - :S/p tacrolimus - cost prohibitive;. Plan of Care Future visit for 09/25/2025 - Follow up in 2 months for: Focused Visit - 15 minutes. Other Instructions: recheck visit. Other Instructions: recheck visit. Code Detail Instructions 304579 clobetasol 0.05 % topical cream Apply twice daily to CTCL rash up to 2 weeks/month as needed. 944421 ketoconazole 2 % topical cream A pply thin layer to rash on chest BID until clear and PRN flares. betamethasone valerate 0.1 % lot ion Apply thin layer twice a day to area on scalp for 2 weeks at a time. 354908 clobetasol 0.05 % topical foam A pply thin layer to area of itch on scalp twice daily for 2 weeks at a time, taking a 1 week break. 446363 tacrolimus 0.1 % topical ointmen t Apply daily to affected areas 546218 betamethasone diprop ionate 0.05 % topical cream [...] History Code Activity Start Date End Date [id number] (SNOMED) Never smoker Sex Male Sexual orientation Unspecified Gender identity Unspecified Vital Signs No data Insurances Coverage Status Coverage Type Relationship to Subscriber Member Identifier Subscriber Identifier Group Identifier Payer Identifier Active 1 Self [id number] Active 2 Self [id number]
[2025-08-02] MEDS: Butalb/Acetamin/Caff 50/325/40 TABLET 1 TAB PO (23:45)
[2025-08-03 03:24] VITALS: BP 109/62; PULSE 76; RESP 18; TEMP 36.3; O2SAT 98
[2025-08-03 06:10] LABS: Hematocrit 34.7 % (42.0-52.0); Hemoglobin 11.5 g/dl (14.0-18.0); Imm Gran Abs Auto 0.01 X10*3/uL (0.00-0.03); Imm Gran Pct Auto 0.2 % (0.0-0.4); Lymphocytes Absolute Auto 2.2 X10*3/uL (1.2-4.9); MANUAL DIFF FLAG SCAN; Mean Corpuscular HGB Conc 33.1 g/dl (31.0-36.0); Mean Corpuscular Hemoglobin 28.2 pg (27.0-33.0); Mean Corpuscular Volume 85.0 fL (80.0-98.0); NRBC Abs Auto 0.000 X10*3/uL (0.0-0.012); NRBC Pct Auto 0.0 /100WBC (0.0-0.2); PLT CLUMP 1; Red Blood Count 4.08 X10*6/uL (4.60-5.80); SCAN SMEAR FLAG 1
[2025-08-03 06:22] LABS: Anion Gap 10 (12-20); Blood Urea Nitrogen 10 mg/dL (9-16); Calcium 9.1 mg/dL (8.4-10.2); Carbon Dioxide 28 mmol/L (22-29); Chloride 105 mmol/L (96-108); Creatinine Clr Calc Pharmacy 66.8; Estimated Glomerular Filt Rate > 60; Magnesium 1.9 mg/dL (1.6-2.6); Potassium 3.7 mmol/L (3.3-5.1); Sodium 139 mmol/L (135-145)
[2025-08-03 06:35] LABS: Platelet Count 147 X10*3/uL (160-400); White Blood Count 6.3 X10*3/uL (4.8-10.8)
[2025-08-03 07:15] VITALS: BP 102/56; PULSE 71; RESP 16; TEMP 35.9; O2SAT 97
[2025-08-03 07:21] LABS: Glucose, Whole Blood 84 mg/dL (60-115)
[2025-08-03] MEDS: Lactated Ringers 1,000 ML 150 ML IVCONT ×3 (08:21→21:38)
--- NOTE | 2025-08-03 09:08 | P.PNIM_ITS ---
Subjective Subjective Date of Service: 08/03/25 Interval History: f/u on recurrent pancreatitis c/o 04/01 pain, n/v Physical Exam 2 Vital Signs: Vital Signs: Last Vital Signs Temp 96.7 F L 08/03/25 07:15 Pulse 71 08/03/25 07:15 Resp 16 08/03/25 07:15 BP 102/56 L 08/03/25 07:15 Pulse Ox 97 08/03/25 07:15 O2 Del Method Room Air 08/03/25 07:15 BMI result Body Mass Index 26.6 Objective Data Active Medications Acetaminophen (Acetaminophen 325 Mg Tablet) 650 mg PO Q6H PRN PRN Reason: Pain, Mild 1-3,fever,headache Acetaminophen/Butalbital/Caffeine (Butalb/Acetamin/Caff 50/325/40 Tablet) 1 tab PO Q4H PRN PRN Reason: Migraine Headache Last Admin: 08/02/25 23:45 Dose: 1 tab Documented By: FRANSICO Calcium Carbonate (Calcium Carbonate 750 Mg Tab.Chew) 750 mg PO Q4H PRN PRN Reason: Heartburn Dextrose (Dextrose 50 % 25 Gm/50 Ml Syringe) 25 gm IVPUSH Q15M PRN; Protocol PRN Reason: per Hypoglycemia Standing Ord. Enoxaparin Sodium (Enoxaparin Sodium 40 Mg/0.4 Ml Syringe) 40 mg SUBCUT Q24H [facility] Last Admin: 08/02/25 17:39 Dose: 40 mg Documented By: SHAHAB Glucose (Glucose Gel 15 Gm Gel..Gram.) 15 gm PO Q15M PRN; Protocol PRN Reason: per Hypoglycemia Standing Ord. Hydromorphone HCl (Hydromorphone Hcl 1 Mg/Ml Syringe) 0.5 mg IVPUSH Q4H PRN; Protocol PRN Reason: Pain, Severe (Pain Scale 7-10) Last Admin: 08/03/25 08:20 Dose: 0.5 mg Documented By: TAMARA Lactated Ringer's (Lr) 1,000 mls @ 150 mls/hr IVCONT .Q6H40M [facility] Last Admin: 08/03/25 08:21 Dose: 150 mls/hr Documented By: TAMARA Insulin Human Lispro (Insulin Lispro 100 Unit/Ml 3 Ml Vial) 0 unit SUBCUT QIDACHS [facility]; Protocol Last Admin: 08/03/25 07:38 Dose: Not Given Documented By: TAMARA Non-Admin Reason: No Insulin Coverage Magnesium Hydroxide (Milk Of Magnesia 30 Ml Oral.Susp) 30 ml PO DAILY PRN PRN Reason: Constipation Melatonin (Melatonin 3 Mg Tablet) 6 mg PO BEDTIME PRN PRN Reason: Insomnia Ondansetron HCl (Ondansetron Hcl 4 Mg/2 Ml Vial) 4 mg IVPUSH Q8H PRN PRN Reason: Nausea and Vomiting Oxycodone HCl (Oxycodone Hcl Immed Release 5 Mg Tablet) 5 mg PO Q6H PRN PRN Reason: Pain, Moderate(Pain Scale 4-6) Last Admin: 08/02/25 21:04 Dose: 5 mg Documented By: FRANSICO Sodium Chloride (0.9 % Sodium Chloride Flush 3 Ml Syringe) [facility] Last Admin: 08/03/25 07:37 Dose: Not Given Documented By: TAMARA Non-Admin Reason: IV Running Sumatriptan Succinate (Sumatriptan Succinate 100 Mg Tablet) 100 mg PO DAILY PRN PRN Reason: Migraine Headache Last Admin: 08/02/25 21:04 Dose: 100 mg Documented By: FRANSICO Zolpidem Tartrate (Zolpidem Tartrate 5 Mg Tablet) 10 mg PO BEDTIME PRN PRN Reason: Insomnia Last Admin: 08/02/25 21:49 Dose: 10 mg Documented By: FRANSICO Labs 08/03/25 05:21 08/03/25 05:21 Labs: Laboratory Results - last 24 hr 08/02/25 08/02/25 08/02/25 13:28 13:29 20:47 MCV 84.6 MCH 28.1 MCHC 33.2 RDW 13.1 Plt Count 174 MPV 13.7 H Immature Gran % (Auto) 0.3 Neut % (Auto) 60.1 Lymph % (Auto) 29.8 Dundy % (Auto) 8.7 Eos % (Auto) 0.7 Baso % (Auto) 0.4 Lymph # (Auto) 3.0 Dundy # (Auto) 0.9 Eos # (Auto) 0.1 Baso # (Auto) 0.0 Abs Immat Gran (auto) 0.03 Absolute Neuts (auto) 6.0 Absolute Nucleated RBC 0.000 Nucleated RBC % (auto) 0.0 Smear Tech's Comments PT 12.5 INR 1.0 Anion Gap 15 Estim Creat Clear Calc 55.0 Estimated GFR 58 POC Glucose 94 Random Glucose 85 Calcium 10.9 H D Magnesium 1.4 L* Total Bilirubin 0.5 AST 32 ALT 30 Alkaline Phosphatase 68 Troponin I High Sens < 2.7 Total Protein 8.7 H Albumin 5.2 H Triglycerides 115 Lipase 11 Influenza Type A (PCR) NEGATIVE Influenza Type B (PCR) NEGATIVE RSV RNA Qual (PCR) NEGATIVE SARS-CoV-2 RNA (RT-PCR) NEGATIVE 08/03/25 08/03/25 05:21 07:16 MCV 85.0 MCH 28.2 MCHC 33.1 RDW 13.3 Plt Count 147 L MPV 13.6 H Immature Gran % (Auto) 0.2 Neut % (Auto) 54.4 Lymph % (Auto) 34.9 Dundy % (Auto) 8.7 Eos % (Auto) 1.3 Baso % (Auto) 0.5 Lymph # (Auto) 2.2 Dundy # (Auto) 0.6 Eos # (Auto) 0.1 Baso # (Auto) 0.0 Abs Immat Gran (auto) 0.01 Absolute Neuts (auto) 3.4 Absolute Nucleated RBC 0.000 Nucleated RBC % (auto) 0.0 Smear Tech's Comments VERIFIED PT INR Anion Gap 10 L Estim Creat Clear Calc 66.8 Estimated GFR > 60 POC Glucose 84 Random Glucose 85 Calcium 9.1 D Magnesium 1.9 Total Bilirubin AST ALT Alkaline Phosphatase Troponin I High Sens Total Protein Albumin Triglycerides Lipase Influenza Type A (PCR) Influenza Type B (PCR) RSV RNA Qual (PCR) SARS-CoV-2 RNA (RT-PCR) Assessment and Plan (1) Acute on chronic pancreatitis: Status: Acute Plan 55-year-old male with history of chronic pancreatitis, type 2 diabetes, migraines history of pancreatic stones status post Puestow procedure in April 2025 who presents to the emergency department with abdominal pain found to have acute on chronic pancreatitis and possible ileus Acute on chronic pancreatitis lipase normal TG controlled. IVF, antiemetics, pain control Advance diet to liquid seen by GI while in ED ileus imaging with possible ileus abdomen non-distended on exam npo, advance diet as tolerated check stool studies hypomagnesemia magnesium 1.4 given IV mag in the ED, 1.9 today follow levels in am T2DM SSI, POCs Trulicity non formulary Hold pioglitazone Med rec pending at the time of admission DVT prophylaxis-Lovenox Code status-full code Patient will likely require 2 midnight stay in the hospital for management of acute on chronic pancreatitis requiring close monitoring, serial abdominal exams Quality Stroke Does the patient have a stroke diagnosis?: No VTE Prior VTE?: No VTE Risk Level:: Medical - moderate - high VTE Device Contraindication: N/A - Device Ordered VTE Drug Contraindication: N/A - Med Ordered
[2025-08-03] MEDS: oxyCODONE HCl Immed Release 5 MG TABLET 10 MG PO ×3 (09:57→22:52)
[2025-08-03] MEDS: Butalb/Acetamin/Caff 50/325/40 TABLET 1 TAB PO ×2 (11:08→17:05)
[2025-08-03 11:30] LABS: Glucose, Whole Blood 77 mg/dL (60-115)
--- NOTE | 2025-08-03 11:38 | MHC.CM.PN ---
pt lives with s/o is independent had no services pt has own ride home dc plan home n/s
[2025-08-03] MEDS: Betamethasone Dip Aug 0.05% Cr 15 GM TUBE 1 APPL TOPICAL ×2 (12:11→20:26)
[2025-08-03] MEDS: Lipase/Prot/Amylase 12/38/60K CAPSULE.DR 1 CAP PO ×2 (12:12→16:50)
[2025-08-03 16:00] VITALS: BP 113/62; PULSE 78; RESP 19; TEMP 36.2; O2SAT 98
[2025-08-03 16:19] LABS: Glucose, Whole Blood 77 mg/dL (60-115)
[2025-08-03 20:00] VITALS: BP 110/65; PULSE 85; RESP 19; TEMP 36.5; O2SAT 98
[2025-08-03] MEDS: oxyCODONE HCl Immed Release 5 MG TABLET PO (20:20)
[2025-08-03 20:37] LABS: Glucose, Whole Blood 77 mg/dL (60-115)
[2025-08-04 00:38] LABS: CDiff Gene PCR NEGATIVE (Negative)
[2025-08-04 03:35] VITALS: BP 104/61; PULSE 92; RESP 16; TEMP 36.4; O2SAT 94
[2025-08-04] MEDS: Lactated Ringers 1,000 ML 150 ML IVCONT ×2 (05:37→12:43)
[2025-08-04] MEDS: Butalb/Acetamin/Caff 50/325/40 TABLET 1 TAB PO ×3 (05:41→21:27)
--- NOTE | 2025-08-04 07:22 | P.PNIM_ITS ---
Subjective Subjective Date of Service: 08/04/25 Interval History: Seen in follow up for : acute on chronic pancreatitis Interval history: Still reporting 10/10 upper abd pain, worse with clears. LR still running, receiving dilaudid and oxy. Pain radiates to front. Physical Exam 2 Exam: Exam: EXAM: Constitutional - Awake and Alert, No apparent distress Eyes - PERRL Cardiovascular - S1S2, RRR, No edema Respiratory - Normal lung expansion, Normal respiratory effort, No respiratory distress, CTA bilaterally Abd - nondistended, tenderness to palpation across the upper abdomen with guarding. BSx4. No rebound Extremities - no calf tenderness bilaterally, no swelling Skin - Warm/Dry Neurological - Alert & oriented x3 Psychological - Appropriate affect Vital Signs: Vital Signs: Last Vital Signs Temp 97.6 F 08/04/25 03:35 Pulse 92 08/04/25 03:35 Resp 16 08/04/25 03:35 BP 104/61 08/04/25 03:35 Pulse Ox 94 08/04/25 03:35 O2 Del Method Room Air 08/04/25 03:35 BMI result Body Mass Index 26.6 Objective Data Active Medications Acetaminophen (Acetaminophen 325 Mg Tablet) 650 mg PO Q6H PRN PRN Reason: Pain, Mild 1-3,fever,headache Acetaminophen/Butalbital/Caffeine (Butalb/Acetamin/Caff 50/325/40 Tablet) 1 tab PO Q4H PRN PRN Reason: Migraine Headache Last Admin: 08/04/25 05:41 Dose: 1 tab Documented By: VAHID Lipase/Protease/Amylase (Lipase/Prot/Amylase /60k Capsule.) 1 cap PO TIDWM [facility] Last Admin: 08/03/25 16:50 Dose: 1 cap Documented By: TAMARA Atorvastatin Calcium (Atorvastatin Calcium 80 Mg Tablet) 80 mg PO DAILY [facility] Last Admin: 08/03/25 10:25 Dose: 80 mg Documented By: TAMARA Betamethasone Dipropion Augmented (Betamethasone Dip Aug 0.05% Cr 15 Gm Tube) 1 appl TOPICAL BID [facility] Last Admin: 08/03/25 20:26 Dose: 1 appl Documented By: VAHID Calcium Carbonate (Calcium Carbonate 750 Mg Tab.Chew) 750 mg PO Q4H PRN PRN Reason: Heartburn Dextrose (Dextrose 50 % 25 Gm/50 Ml Syringe) 25 gm IVPUSH Q15M PRN; Protocol PRN Reason: per Hypoglycemia Standing Ord. Docusate Sodium (Docusate Sodium 100 Mg Capsule) 100 mg PO BID PRN PRN Reason: Constipation Enoxaparin Sodium (Enoxaparin Sodium 40 Mg/0.4 Ml Syringe) 40 mg SUBCUT Q24H [facility] Last Admin: 08/03/25 16:50 Dose: 40 mg Documented By: TAMARA Fenofibrate (Fenofibrate 54 Mg Tablet) 108 mg PO DAILY [facility] Last Admin: 08/03/25 09:57 Dose: 108 mg Documented By: NEISHA Glucose (Glucose Gel 15 Gm Gel..Gram.) 15 gm PO Q15M PRN; Protocol PRN Reason: per Hypoglycemia Standing Ord. Hydromorphone HCl (Hydromorphone Hcl 1 Mg/Ml Syringe) 0.5 mg IVPUSH Q4H PRN; Protocol PRN Reason: Pain, Severe (Pain Scale 7-10) Last Admin: 08/04/25 05:34 Dose: 0.5 mg Documented By: VAHID Lactated Ringer's (Lr) 1,000 mls @ 150 mls/hr IVCONT .Q6H40M [facility] Last Admin: 08/04/25 05:37 Dose: 150 mls/hr Documented By: VAHID Insulin Human Lispro (Insulin Lispro 100 Unit/Ml 3 Ml Vial) 0 unit SUBCUT QIDACHS [facility]; Protocol Last Admin: 08/03/25 20:59 Dose: Not Given Documented By: VAHID Non-Admin Reason: No Insulin Coverage Magnesium Hydroxide (Milk Of Magnesia 30 Ml Oral.Susp) 30 ml PO DAILY PRN PRN Reason: Constipation Melatonin (Melatonin 3 Mg Tablet) 6 mg PO BEDTIME PRN PRN Reason: Insomnia Multivitamins/Vitamin C (Multivitamin Tablet) 1 tab PO DAILY [facility] Last Admin: 08/03/25 09:57 Dose: 1 tab Documented By: NEISHA Patient Own Med ( Linaclotide 290 Mcg Capsule) 290 mcg PO DAILY [facility] Last Admin: 08/03/25 12:12 Dose: 290 mcg Documented By: NEISHA Nortriptyline HCl (Nortriptyline Hcl 25 Mg Capsule) 75 mg PO BEDTIME [facility] Last Admin: 08/03/25 20:20 Dose: 75 mg Documented By: VAHID Omeprazole (Omeprazole 40 Mg Capsule.Dr) 40 mg PO DAILY@0630 [facility] Last Admin: 08/04/25 05:34 Dose: 40 mg Documented By: VAHID Ondansetron HCl (Ondansetron Hcl 4 Mg/2 Ml Vial) 4 mg IVPUSH Q8H PRN PRN Reason: Nausea and Vomiting Last Admin: 08/03/25 17:05 Dose: 4 mg Documented By: TAMARA Ondansetron HCl (Ondansetron Odt 4 Mg Tab.Rapdis) 4 mg TRANSLINGU Q8H PRN PRN Reason: Nausea and Vomiting Last Admin: 08/04/25 05:34 Dose: 4 mg Documented By: VAHID Oxycodone HCl (Oxycodone Hcl Immed Release 5 Mg Tablet) 5 mg PO Q6H PRN PRN Reason: Pain, Moderate(Pain Scale 4-6) Last Admin: 08/03/25 20:20 Dose: 5 mg Documented By: VAHID Oxycodone HCl (Oxycodone Hcl Immed Release 5 Mg Tablet) 10 mg PO Q6H [facility] Last Admin: 08/04/25 05:30 Dose: Not Given Documented By: VAHID Non-Admin Reason: Patient Refused Sodium Chloride (0.9 % Sodium Chloride Flush 3 Ml Syringe) [facility] Last Admin: 08/03/25 21:54 Dose: Not Given Documented By: VAHID Non-Admin Reason: IV Running Sumatriptan Succinate (Sumatriptan Succinate 100 Mg Tablet) 100 mg PO DAILY PRN PRN Reason: Migraine Headache Last Admin: 08/02/25 21:04 Dose: 100 mg Documented By: FRANSICO Tizanidine HCl (Tizanidine Hcl 4 Mg Tablet) 4 mg PO Q8H PRN PRN Reason: muscle spasms Vitamin D (Cholecalciferol (Vitamin D3) 25 Mcg Tablet) 25 mcg PO DAILY [facility] Last Admin: 08/03/25 09:57 Dose: 25 mcg Documented By: NEISHA Zolpidem Tartrate (Zolpidem Tartrate 5 Mg Tablet) 10 mg PO BEDTIME [facility] Last Admin: 08/03/25 20:20 Dose: 10 mg Documented By: VAHID Labs 08/03/25 05:21 08/04/25 08:04 Labs: Laboratory Results - last 24 hr 08/03/25 08/03/25 08/03/25 11:27 16:11 20:28 POC Glucose 77 77 77 C. difficile Tox B Gene 08/03/25 21:40 POC Glucose C. difficile Tox B Gene NEGATIVE Assessment and Plan (1) Acute on chronic pancreatitis: Status: Acute Plan 55-year-old male with history of chronic pancreatitis, type 2 diabetes, migraines history of pancreatic stones status post Puestow procedure in April 2025 who presents to the emergency department with abdominal pain found to have acute on chronic pancreatitis and possible ileus Acute on chronic pancreatitis Downgrade back to NPO given ongoing pain lipase normal TG controlled. IVF, antiemetics, pain control seen by GI while in ED ileus imaging with possible ileus abdomen non-distended on exam npo, advance diet as tolerated check stool studies hypomagnesemia magnesium 1.4 given IV mag in the ED, 1.9 today follow levels in am T2DM SSI, POCs Trulicity non formulary Hold pioglitazone DVT prophylaxis-Lovenox Code status-full code Requires ongoing inpatient stay due to p.o. intolerance and need for IV analgesics Quality Stroke Does the patient have a stroke diagnosis?: No VTE Prior VTE?: No VTE Risk Level:: Medical - moderate - high VTE Device Contraindication: N/A - Device Ordered VTE Drug Contraindication: N/A - Med Ordered
[2025-08-04] MEDS: Lipase/Prot/Amylase 12/38/60K CAPSULE.DR 1 CAP PO (07:24)
[2025-08-04] MEDS: Betamethasone Dip Aug 0.05% Cr 15 GM TUBE 1 APPL TOPICAL ×2 (07:25→21:33)
[2025-08-04] MEDS: 0.9 % Sodium Chloride Flush 3 ML SYRINGE IVFLUSH (07:25)
[2025-08-04] MEDS: oxyCODONE HCl Immed Release 5 MG TABLET 10 MG PO ×3 (07:29→18:20)
[2025-08-04 07:36] LABS: Glucose, Whole Blood 112 mg/dL (60-115)
[2025-08-04 08:00] VITALS: BP 108/67; PULSE 79; RESP 16; TEMP 36.4; O2SAT 93
[2025-08-04 08:42] LABS: Anion Gap 10 (12-20); Blood Urea Nitrogen 7 mg/dL (9-16); Calcium 8.9 mg/dL (8.4-10.2); Carbon Dioxide 25 mmol/L (22-29); Chloride 108 mmol/L (96-108); Creatinine Clr Calc Pharmacy 78.6; Estimated Glomerular Filt Rate > 60; Magnesium 1.5 mg/dL (1.6-2.6); Potassium 3.7 mmol/L (3.3-5.1); Sodium 139 mmol/L (135-145)
[2025-08-04 09:31] LABS: E. coli EAEC Not Detected (Not Detect.); E. coli EPEC Not Detected (Not Detect.); E. coli ETEC Not Detected (Not Detect.); E. coli STEC Not Detected (Not Detect.); Shigella sp./EIEC Not Detected (Not Detect.)
[2025-08-04 11:18] LABS: Glucose, Whole Blood 82 mg/dL (60-115)
[2025-08-04 15:45] VITALS: BP 111/58; PULSE 82; RESP 16; TEMP 36.3; O2SAT 93
[2025-08-04 16:21] LABS: Glucose, Whole Blood 88 mg/dL (60-115)
[2025-08-04 19:07] VITALS: BP 113/69; PULSE 76; RESP 16; TEMP 36.5; O2SAT 96
[2025-08-04 20:14] LABS: Glucose, Whole Blood 50 mg/dL (60-115)
[2025-08-04] MEDS: Dextrose 5 % and Lactated Ring 1,000 ML 125 ML IVCONT (20:21)
[2025-08-04 20:36] LABS: Glucose, Whole Blood 163 mg/dL (60-115)
--- NOTE | 2025-08-04 20:55 | PM.EVENT ---
Event Note Date of Service: 08/04/25 Event Note: Report from nursing, pt with pancreatitis, NPO BG 50, renewed fluids to D5LR at 125 mls per hour. Pt received prn dextrose. BG 163 mg/dL after interventions. Time Spent With Patient Time: Total time managing care of this patient today ____ minutes.
[2025-08-05] MEDS: oxyCODONE HCl Immed Release 5 MG TABLET 10 MG PO ×4 (01:29→20:00)
[2025-08-05 03:53] VITALS: BP 98/64; PULSE 85; RESP 15; TEMP 36.3; O2SAT 97
[2025-08-05] MEDS: Dextrose 5 % and Lactated Ring 1,000 ML 125 ML IVCONT ×3 (04:25→20:40)
[2025-08-05 06:01] VITALS: BP 149/67
[2025-08-05 06:06] LABS: Anion Gap 11 (12-20); Blood Urea Nitrogen 5 mg/dL (9-16); Calcium 9.1 mg/dL (8.4-10.2); Carbon Dioxide 27 mmol/L (22-29); Chloride 109 mmol/L (96-108); Creatinine Clr Calc Pharmacy 76.0; Estimated Glomerular Filt Rate > 60; Potassium 3.7 mmol/L (3.3-5.1); Sodium 143 mmol/L (135-145)
[2025-08-05 07:30] VITALS: BP 105/58; PULSE 75; RESP 14; TEMP 36.1; O2SAT 94
[2025-08-05 07:36] LABS: Glucose, Whole Blood 110 mg/dL (60-115)
[2025-08-05] MEDS: Betamethasone Dip Aug 0.05% Cr 15 GM TUBE 1 APPL TOPICAL ×2 (07:53→20:41)
[2025-08-05 08:15] LABS: Magnesium 1.4 mg/dL (1.6-2.6)
[2025-08-05] MEDS: Magnesium Sulfate/H2O 2 GM/50 ML PIGGYBACK IV (09:00)
--- NOTE | 2025-08-05 10:14 | P.PNIM_ITS ---
Subjective Subjective Date of Service: 08/05/25 Interval History: Follow up for pt with chronic pancreatitis; diet recently reduced to NPO Had an episode of hypoglycemia last evening, started on D5 LR Noted to be hypomagnesemic today Still experiencing upper abdominal pain like a band that wraps Around to his back some nausea, no vomiting Has had diarrhea for the past few days, 3 episodes or more per day No difficulty breathing or SOB Denies chest pain Pt would like to trial Clear liquid diet for right now Review of Systems Review of Systems: Yes all other systems are reviewed and are negative Physical Exam 2 Exam: Exam: General: AOx3, no acute distress Resp: CTA bilaterally CVS: S1, S2, RRR GI: +BS, no distention, epigastric tenderness Skin: Warm, dry Neuro: Cranial nerves II-XII grossly intact bilaterally. Motor grossly intact bilaterally Extremities: No edema Psych: Appropriate affect Vital Signs: Vital Signs: Last Vital Signs Temp 96.9 F 08/05/25 07:30 Pulse 75 08/05/25 07:30 Resp 14 08/05/25 07:30 BP 105/58 L 08/05/25 07:30 Pulse Ox 94 08/05/25 07:30 O2 Del Method Room Air 08/05/25 07:30 BMI result Body Mass Index 26.6 Objective Data Active Medications Acetaminophen (Acetaminophen 325 Mg Tablet) 650 mg PO Q6H PRN PRN Reason: Pain, Mild 1-3,fever,headache Acetaminophen/Butalbital/Caffeine (Butalb/Acetamin/Caff 50/325/40 Tablet) 1 tab PO Q4H PRN PRN Reason: Migraine Headache Last Admin: 08/04/25 21:27 Dose: 1 tab Documented By: VAHID Lipase/Protease/Amylase (Lipase/Prot/Amylase /60k Capsule.) 1 cap PO TIDWM [facility] Last Admin: 08/05/25 07:45 Dose: Not Given Documented By: SHANAE Non-Admin Reason: NPO Atorvastatin Calcium (Atorvastatin Calcium 80 Mg Tablet) 80 mg PO DAILY [facility] Last Admin: 08/05/25 07:50 Dose: 80 mg Documented By: SHANAE Betamethasone Dipropion Augmented (Betamethasone Dip Aug 0.05% Cr 15 Gm Tube) 1 appl TOPICAL BID [facility] Last Admin: 08/05/25 07:53 Dose: 1 appl Documented By: SHANAE Calcium Carbonate (Calcium Carbonate 750 Mg Tab.Chew) 750 mg PO Q4H PRN PRN Reason: Heartburn Dextrose (Dextrose 50 % 25 Gm/50 Ml Syringe) 25 gm IVPUSH Q15M PRN; Protocol PRN Reason: per Hypoglycemia Standing Ord. Last Admin: 08/04/25 20:09 Dose: 25 gm Documented By: VAHID Docusate Sodium (Docusate Sodium 100 Mg Capsule) 100 mg PO BID PRN PRN Reason: Constipation Enoxaparin Sodium (Enoxaparin Sodium 40 Mg/0.4 Ml Syringe) 40 mg SUBCUT Q24H [facility] Last Admin: 08/04/25 16:11 Dose: 40 mg Documented By: SHANAE Fenofibrate (Fenofibrate 54 Mg Tablet) 108 mg PO DAILY [facility] Last Admin: 08/05/25 07:50 Dose: 108 mg Documented By: SHANAE Glucose (Glucose Gel 15 Gm Gel..Gram.) 15 gm PO Q15M PRN; Protocol PRN Reason: per Hypoglycemia Standing Ord. Hydromorphone HCl (Hydromorphone Hcl 1 Mg/Ml Syringe) 0.5 mg IVPUSH Q4H PRN; Protocol PRN Reason: Pain, Severe (Pain Scale 7-10) Last Admin: 08/05/25 05:55 Dose: 0.5 mg Documented By: VAHID Dextrose/Lactated Ringer's (D5lr) 1,000 mls @ 125 mls/hr IVCONT .Q8H [facility] Last Admin: 08/05/25 04:25 Dose: 125 mls/hr Documented By: VAHID Magnesium Sulfate (Magnesium Sulfate/H2o) 2 gm in 50 mls @ 25 mls/hr IV ONCE ONE Stop: 08/05/25 10:47 Last Admin: 08/05/25 09:00 Dose: 25 mls/hr Documented By: SHANAE Insulin Human Lispro (Insulin Lispro 100 Unit/Ml 3 Ml Vial) 0 unit SUBCUT QIDACHS [facility]; Protocol Last Admin: 08/05/25 07:45 Dose: Not Given Documented By: SHANAE Non-Admin Reason: No Insulin Coverage Loperamide HCl (Loperamide Hcl 2 Mg Capsule) 2 mg PO Q6H PRN PRN Reason: Diarrhea Magnesium Hydroxide (Milk Of Magnesia 30 Ml Oral.Susp) 30 ml PO DAILY PRN PRN Reason: Constipation Melatonin (Melatonin 3 Mg Tablet) 6 mg PO BEDTIME PRN PRN Reason: Insomnia Multivitamins/Vitamin C (Multivitamin Tablet) 1 tab PO DAILY [facility] Last Admin: 08/05/25 07:50 Dose: 1 tab Documented By: SHANAE Patient Own Med ( Linaclotide 290 Mcg Capsule) 290 mcg PO DAILY [facility] Last Admin: 08/05/25 07:51 Dose: 290 mcg Documented By: SHANAE Nortriptyline HCl (Nortriptyline Hcl 25 Mg Capsule) 75 mg PO BEDTIME [facility] Last Admin: 08/04/25 20:12 Dose: 75 mg Documented By: VAHID Omeprazole (Omeprazole 40 Mg Capsule.Dr) 40 mg PO DAILY@0630 [facility] Last Admin: 08/05/25 05:19 Dose: 40 mg Documented By: VAHID Ondansetron HCl (Ondansetron Hcl 4 Mg/2 Ml Vial) 4 mg IVPUSH Q8H PRN PRN Reason: Nausea and Vomiting Last Admin: 08/04/25 21:27 Dose: 4 mg Documented By: VAHID Ondansetron HCl (Ondansetron Odt 4 Mg Tab.Rapdis) 4 mg TRANSLINGU Q8H PRN PRN Reason: Nausea and Vomiting Last Admin: 08/04/25 05:34 Dose: 4 mg Documented By: VAHID Oxycodone HCl (Oxycodone Hcl Immed Release 5 Mg Tablet) 5 mg PO Q6H PRN PRN Reason: Pain, Moderate(Pain Scale 4-6) Last Admin: 08/03/25 20:20 Dose: 5 mg Documented By: VAHID Oxycodone HCl (Oxycodone Hcl Immed Release 5 Mg Tablet) 10 mg PO Q6H [facility] Last Admin: 08/05/25 07:50 Dose: 10 mg Documented By: SHANAE Sodium Chloride (0.9 % Sodium Chloride Flush 3 Ml Syringe) 3 ml IVFLUSH QSHIFT [facility] Last Admin: 08/05/25 07:53 Dose: Not Given Documented By: SHANAE Non-Admin Reason: IV Running Sumatriptan Succinate (Sumatriptan Succinate 100 Mg Tablet) 100 mg PO DAILY PRN PRN Reason: Migraine Headache Last Admin: 08/02/25 21:04 Dose: 100 mg Documented By: FRANSICO Tizanidine HCl (Tizanidine Hcl 4 Mg Tablet) 4 mg PO Q8H PRN PRN Reason: muscle spasms Vitamin D (Cholecalciferol (Vitamin D3) 25 Mcg Tablet) 25 mcg PO DAILY [facility] Last Admin: 08/05/25 07:50 Dose: 25 mcg Documented By: SHANAE Zolpidem Tartrate (Zolpidem Tartrate 5 Mg Tablet) 10 mg PO BEDTIME [facility] Last Admin: 08/04/25 21:27 Dose: 10 mg Documented By: VAHID Labs 08/03/25 05:21 08/05/25 05:36 Labs: Laboratory Results - last 24 hr 08/04/25 08/04/25 08/04/25 11:09 16:13 20:03 Anion Gap Estim Creat Clear Calc Estimated GFR POC Glucose 82 88 50 L* Random Glucose Calcium Magnesium 08/04/25 08/05/25 08/05/25 20:32 05:36 07:33 Anion Gap 11 L Estim Creat Clear Calc 76.0 Estimated GFR > 60 POC Glucose 163 H 110 Random Glucose 131 H Calcium 9.1 Magnesium 1.4 L* Assessment and Plan (1) Acute on chronic pancreatitis: Status: Acute (2) Hypomagnesemia: Status: Resolved Plan 55-year-old male with history of chronic pancreatitis, type 2 diabetes, migraines history of pancreatic stones status post Pu[place]ow procedure in April 2025 who presents to the emergency department with abdominal pain found to have acute on chronic pancreatitis and possible ileus Acute on chronic pancreatitis Downgraded yesterday back to NPO given ongoing pain lipase normal, TG controlled. IVF, antiemetics, pain control seen by GI while in ED will advance diet to clears this morning Hypoglycemia POC 50 overnight D5LR, continue for now ileus imaging with possible ileus abdomen non-distended on exam clear liquid diet stool studies negative hypomagnesemia magnesium 1.4 replenish as necessary follow levels in am T2DM SSI, POCs Trulicity non formulary Hold pioglitazone DVT prophylaxis-Lovenox Code status-full code Requires ongoing inpatient stay due to p.o. intolerance and need for IV analgesics, IVF, electrolyte replenishment, and slow advancement of diet. Quality Stroke Does the patient have a stroke diagnosis?: No VTE Prior VTE?: No VTE Risk Level:: Medical - moderate - high VTE Device Contraindication: N/A - Device Ordered VTE Drug Contraindication: N/A - Med Ordered
[2025-08-05] MEDS: Butalb/Acetamin/Caff 50/325/40 TABLET 1 TAB PO ×2 (10:47→20:05)
[2025-08-05 11:38] LABS: Glucose, Whole Blood 110 mg/dL (60-115)
[2025-08-05 15:33] VITALS: BP 108/59; PULSE 74; RESP 16; TEMP 36.2; O2SAT 94
[2025-08-05 16:16] LABS: Glucose, Whole Blood 97 mg/dL (60-115)
[2025-08-05 19:24] VITALS: BP 113/70; PULSE 75; RESP 18; TEMP 36.6; O2SAT 95
[2025-08-05 19:55] LABS: Glucose, Whole Blood 85 mg/dL (60-115)
[2025-08-06] MEDS: oxyCODONE HCl Immed Release 5 MG TABLET 10 MG PO ×3 (00:56→11:38)
[2025-08-06] MEDS: Dextrose 5 % and Lactated Ring 1,000 ML 125 ML IVCONT (03:16)
[2025-08-06] MEDS: oxyCODONE HCl Immed Release 5 MG TABLET PO ×3 (03:16→14:06)
[2025-08-06 03:29] VITALS: BP 112/63; PULSE 80; RESP 18; TEMP 36.3; O2SAT 97
[2025-08-06] MEDS: Lipase/Prot/Amylase 12/38/60K CAPSULE.DR 1 CAP PO ×2 (06:35→11:39)
[2025-08-06] MEDS: Betamethasone Dip Aug 0.05% Cr 15 GM TUBE 1 APPL TOPICAL (06:36)
[2025-08-06 06:41] LABS: Anion Gap 10 (12-20); Blood Urea Nitrogen 6 mg/dL (9-16); Calcium 8.7 mg/dL (8.4-10.2); Carbon Dioxide 27 mmol/L (22-29); Chloride 110 mmol/L (96-108); Creatinine Clr Calc Pharmacy 70.1; Estimated Glomerular Filt Rate > 60; Magnesium 1.3 mg/dL (1.6-2.6); Potassium 3.5 mmol/L (3.3-5.1); Sodium 143 mmol/L (135-145)
[2025-08-06] MEDS: Magnesium Sulfate/H2O 2 GM/50 ML PIGGYBACK IV (07:15)
[2025-08-06 07:32] LABS: Glucose, Whole Blood 157 mg/dL (60-115)
[2025-08-06 07:53] VITALS: BP 108/57; PULSE 84; RESP 18; TEMP 36.8; O2SAT 94
[2025-08-06 11:38] LABS: Glucose, Whole Blood 106 mg/dL (60-115)
[2025-08-06] MEDS: Butalb/Acetamin/Caff 50/325/40 TABLET 1 TAB PO (11:39)
--- NOTE | 2025-08-06 13:30 | PM.DS ---
DS: Providers Provider Date of admission: 08/02/25 15:53 Date of discharge: 08/06/25 Primary care physician: Alfa Saeed MD DS: Diagnosis Discharge Diagnosis (1) Acute on chronic pancreatitis: Status: Acute (2) Hypomagnesemia: Status: Resolved DS: Summary Hospital Course Hospital Course: HP as per admitting provider. This is a 55-year-old male with history of chronic pancreatitis who presents to the emergency department with abdominal pain. Patient has history of hypertriglyceridemia induced pancreatitis and history of pancreatic stone status post [place] procedure in April of this year. He reports chronic pain that waxes and wanes. For the past 3 days he has been having more severe abdominal pain associated with nausea and diarrhea. Pain is described as epigastric with radiation through to his back and is worse when lying flat. Due to the increased severity of his pain he came to the emergency department for evaluation. In the emergency department CT scan showed acute on chronic pancreatitis with possible ileus. Lipase level normal. 55 year old man treated for acute on chronic pancreatitis. imaging also showed ileus. patient has a hx of nausea and vomiting. He was initially NPO then started on clears. He had some pain and overnight made NPO again. Today he was able to tolerate clears and solid food. He was treayed with IVF, antiemetics. Patient had episode of hypoglycemia with POC down to 50. Treated with D5LR and resolved Hypomagnesemia, magnesium 1.4. Treated with IV and po magnesium. Can take magnesium tab daily T2DM, sliding scale and ada diet. Continue home medications Time Attestation Discharge Coordination Time (in mins): 42 Quality: Safe Use of Opioids Does Pt have an Active Cancer Diagnosis on the Problem List?: No Quality: Stroke Does the patient have a stroke diagnosis?: No Physical Exam Exam: Exam: Appearing in no acute distress head is normocephalic atraumatic eyes pupils are PERRLA sclera is anicteric mouth throat mucous membranes are intact and moist neck is supple no lymphadenopathy, no JVD noted lung sounds are clear to auscultation heart regular rate rhythm, clear S1, S2 positive bowel sounds, abdomen is soft, nontender neuro patient is alert x3, no focal deficits Vital Signs: Vital Signs: Last Vital Signs Temp 98.2 F 08/06/25 07:53 Pulse 84 08/06/25 07:53 Resp 18 08/06/25 07:53 BP 108/57 L 08/06/25 07:53 Pulse Ox 94 08/06/25 07:53 O2 Del Method Room Air 08/06/25 07:53 BMI result Body Mass Index 26.6 DS: Data Data Completed and Pending Labs on day of discharge: Laboratory Results - last 24 hr 08/05/25 08/05/25 08/06/25 16:09 19:50 05:35 Sodium 143 Potassium 3.5 Chloride 110 H Carbon Dioxide 27 Anion Gap 10 L BUN 6 L Creatinine 1.02 Estim Creat Clear Calc 70.1 Estimated GFR > 60 POC Glucose 97 85 Random Glucose 130 H Calcium 8.7 Magnesium 1.3 L* 08/06/25 08/06/25 07:26 11:34 Sodium Potassium Chloride Carbon Dioxide Anion Gap BUN Creatinine Estim Creat Clear Calc Estimated GFR POC Glucose 157 H 106 Random Glucose Calcium Magnesium Discharge Plan Discharge Anticipated Discharge Date/Time: 08/06/25 13:26 Patient Disposition: Home, Self-Care Discharge Diagnosis: Acute on Chronic pancreatitis hypoglycemia Referrals: Alfa Saeed MD [Primary Care Provider, Medical] - 1 Week Discharge Medications: New magnesium oxide 400 mg magnesium tablet 400 mg PO DAILY Qty: 30 0RF Continued linaclotide 290 mcg capsule 290 mcg PO DAILY Qty: 90 1RF tizanidine 4 mg tablet 1 tab PO Q8H PRN (Reason: muscle spasms) sumatriptan succinate 100 mg tablet 100 mg PO DAILY PRN (Reason: Migraine Headache) nortriptyline 25 mg capsule 75 mg PO BEDTIME zolpidem 10 mg tablet 10 mg PO BEDTIME rosuvastatin 40 mg tablet 1 tab PO DAILY oxycodone 10 mg tablet 1 tab PO Q6H fenofibrate 54 mg tablet 2 tab PO DAILY ondansetron 4 mg tablet,disintegrating 1 tab PO Q8H PRN (Reason: Nausea And Vomiting) clobetasol 0.05 % cream 1 appl topical BID PRN (Reason: CTCL flares) vitamin B complex Tablet 1 tab PO DAILY pioglitazone 30 mg tablet 30 mg PO DAILY Aimovig Autoinjector 140 mg/mL auto-injector 140 mg subcut QMONTH Patient Comments: Injects on the of every month Trulicity 4.5 mg/0.5 mL pen injector 4.5 mg subcut FR omeprazole 40 mg capsule,delayed release(DR/EC) 1 cap PO DAILY@0630 Creon 12,000-38,000 -60,000 unit capsule,delayed release(DR/EC) 1 cap PO TIDWM cholecalciferol (vitamin D3) 25 mcg (1,000 unit) capsule 25 mcg PO DAILY docusate sodium 100 mg capsule 100 mg PO BID PRN (Reason: Constipation) Discharge Orders: Discharge Order (Routine); Ordered 08/06/25 Ordered By: Surekha Sutherland Diet: Advance to usual diet Activity on Discharge: As tolerated Stand Alone Forms: Patient Portal Discharge page Print Language: [place] Ver[place] Care Plan Goals: Drink plenty of fluids bland diet Health Concerns: Follow up with primary care provider as needed Take all medications as prescribed Plan of Treatment: Acute on Chronic pancreatitis hypoglycemia Assessment: See discharge summary Patient Instructions: Pancreatitis (DC)
--- NOTE | 2025-08-06 18:45 | PC.NURSE ---
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 Linzess 290 MCG
== END 2025-08-06 14:07 | disposition home or self-care (01) | DRG 439 ==
LOC: HO.ED 15:54 → HO.EDOVER 16:01 → HO.S3 19:25
PROVIDERS: Internal Medicine; Physician Assistant; Registered Nurse Emergency; Student in an Organized Health Care Education/Training Program; Admitting Provider Physician Assistant Medical; Emergency Provider Emergency Medicine; PCP Family Medicine; Visit Provider Nurse Practitioner Acute Care
DX: K85.90 Acute pancreatitis without necrosis or infection, unspecified (principal); K56.7 Ileus, unspecified; K86.1 Other chronic pancreatitis; E83.42 Hypomagnesemia; E11.649 Type 2 diabetes mellitus with hypoglycemia without coma; Z20.822 Contact with and (suspected) exposure to COVID-19; Z79.85 Long-term (current) use of injectable non-insulin antidiabetic drugs; Z79.899 Other long term (current) drug therapy
CPT/HCPCS: 36415; 71046; 74177; 80048; 80053; 82947; 83690; 83735; 84478; 84484; 85025; 85610; 87493; 87507; 87637; 93005; 99285; J1171; J1650; J2405; J3475; J7120; Q9967

== ENCOUNTER → 2025-08-02 12:55 | Outpatient (BNV) | payer MEDICARE, MEDICAID, SELFPAY | PROVIDERS: Emergency Provider Emergency Medicine; PCP Family Medicine; Visit Provider Radiology Diagnostic Radiology | DX: R07.9 Chest pain, unspecified (principal) | CPT/HCPCS: 71046; 74177 ==

== ENCOUNTER → 2025-08-02 12:55 | Outpatient (BNV) | payer MEDICARE, MEDICAID, SELFPAY | PROVIDERS: Admitting Provider Physician Assistant Medical; Emergency Provider Emergency Medicine; PCP Family Medicine; Visit Provider Internal Medicine Cardiovascular Disease | DX: R07.9 Chest pain, unspecified (principal) | CPT/HCPCS: 93010 ==

== ENCOUNTER → 2025-08-02 15:53 | Outpatient (BNV) | payer MEDICARE, MEDICAID, SELFPAY | PROVIDERS: Admitting Provider Physician Assistant Medical; Emergency Provider Emergency Medicine; PCP Family Medicine; Visit Provider Internal Medicine Gastroenterology | DX: R10.13 Epigastric pain (principal) | CPT/HCPCS: 99223 ==

== ENCOUNTER → 2025-08-02 15:53 | Outpatient (BNV) | payer MEDICARE, MEDICAID, SELFPAY | PROVIDERS: Admitting Provider Physician Assistant Medical; Emergency Provider Emergency Medicine; PCP Family Medicine; Visit Provider Physician Assistant Medical | DX: K85.90 Acute pancreatitis without necrosis or infection, unspecified (principal); K86.1 Other chronic pancreatitis | CPT/HCPCS: 99223 ==